=== PATIENT | male | born 1960 | race African-American/Black ===

== ENCOUNTER 2016-10-10 16:39 | Inpatient (IN) | payer MEDICAID ==
[~2016-10-10] VITALS: Ht 177.8 cm; Wt 71.9 kg
[~2016-10-10 16:39] MED LIST: CARDURA2 MG PO; CATAPRES0.2 MG PO; COREG25 MG PO; FUROSEMIDE40 MG PO; HYDRALAZINE HC100 MG PO; HYDROCODON-ACE1 EAC7 PO; ISOSORBIDE MONO60 M1 PO; NIFEDIPINE ER30 MG PO; OMEPRAZOLE20 M1 PO; PRINIVIL20 MG PO
--- NOTE | 2016-10-10 17:27 | NUR ---
1714-REEIVED VIA STRETCHER TO ROOM FROM [facility]. ON ROOM AIR, COMPLAINTS OF ABDOMINAL PAIN. STATES THAT HE HAS BEEN SHORT OF BREATH SINCE TUESDAY. LEFT AVF WITH + BRUIT AND THRILL. LEFT DIALYSIS CATH SEEN WITH DRESSING DATE 10/08/16. RIGHT INFUSAPORT SEEN, WILL ASCESS. RODRI YANCEY APN WITH RENAL CALLED FOR ORDERS. PATIENT STATES THAT HE HAD DIALYSIS ON TUESDAY.
[2016-10-10 17:34] VITALS: BP 159/85; BMI 23.5
--- NOTE | 2016-10-10 17:37 | NUR ---
DR PIERSON NOTIFIED OF ADMIT ELEUTERIO [id number]. PORT ACSESSED BY Delia XAVIER RN.
[2016-10-10] MEDS ORDERED: ELIQUIS2.5 MG PO (17:38)
[2016-10-10] MEDS ORDERED: LIPITOR10 MG PO (17:39)
[2016-10-10] MEDS ORDERED: PRINIVIL20 MG PO (17:41)
[2016-10-10] MEDS ORDERED: LONITEN2.5 MG PO (17:42)
[2016-10-10] MEDS ORDERED: ZOFRAN8 MG PO (17:44)
[2016-10-10] MEDS ORDERED: MIRALAX17 GM PO (17:45)
[2016-10-10 20:00] VITALS: BP 147/93
--- NOTE | 2016-10-10 20:11 | NUR ---
INITIAL ROUNDS COMPETED AT 1910 HRS. PT HAS C/O GENERALIZED CHEST DISCOMFORT. AWAITING DR ANDRADE TO EVAL. ASSESSMENT COMPLETED AT 1950 HRS. SR PER CM HR 97. LAVF WITH GOOD BRUIT AND THRILL. L CHEST HEMOSPLIT INTACT. R CHEST INFUSAPORT SL. LUNGS DIMINISHED IN BASES BILAT. WILL CONTINUE TO MONITOR. SR UP X2, CALL LIGHT WITHIN REACH.
--- NOTE | 2016-10-10 20:29 | NUR ---
DR RAYMOND GORDON.
[2016-10-10 20:54] LABS: BASOPHILS 0 % (0.0-2.0); EOSINOPHILS 0.2 % (0-7); HEMATOCRIT 24.7 % (42.0-54.0); HEMOGLOBIN 7.7 g/dL (13.5-17.5); IMMATURE GRANULOCYTES 0.4 % (0-5); LYMPHOCYTES 10.1 % (15-50); MCH 26.6 pg (26.0-34.0); MCHC 31.2 g/dL (31.0-37.0); MCV 85.5 fL (80.0-100.0); MEAN PLATELET VOLUME 9.5 fL (7.4-10.4); MONOCYTES 9.3 % (2-11); RBC 2.89 10x6/uL (4.20-6.10); RDW 14.9 % (11.5-14.5); WBC 13.3 10x3/uL (4.8-10.8)
[2016-10-10 20:56] LABS: PLATELET COUNT 217 10x3/uL (130-400)
[2016-10-10 21:03] LABS: ANION GAP 15.7 mmol/L (8-16); CALCIUM 7.8 mg/dL (8.5-10.1); CARBON DIOXIDE 26.2 mmol/L (21.0-32.0); CREATININE - SERUM 5.1 mg/dL (0.6-1.3); POTASSIUM - SERUM 3.9 mmol/L (3.5-5.1)
--- NOTE | 2016-10-10 21:24 | NUR ---
DR ANDRADE PAGED AT 2029 HRS. Jero YANCEY APN RETURNED CALL AT 2039 HRS. ASSESSMENT OF PT GIVEN INCLUDING VS, PAIN LEVEL AND CURRENT HOME MEDS. NEW ORDERS RECEIVED AND NOTED. BUPRENEX 0.2MG SIVP GIVEN VIA R INFFUSAPORT AT [address] ANDRADE HERE AT 2104 HRS. WILL CONTINUE TO MONITOE. BED ALARM ON.
[2016-10-11] VITALS: BP 134/83
--- NOTE | 2016-10-11 00:05 | NUR ---
PT RESTING WITH EYES CLOSED. RESP EVEN AND REGULAR. SR UP X2, CALL LIGHT WITHIN REACH.
--- NOTE | 2016-10-11 01:50 | NUR ---
BUPRENEX 0.2MG SIVP GIVEN FOR C/O CP. WILL CONITNUE TO MONITOR.
[2016-10-11 04:00] VITALS: BP 145/85
--- NOTE | 2016-10-11 04:17 | NUR ---
PT RESTING WITH EYES CLOSED. RESP EVEN AND REGULAR. SR UP X2, CALL LIGHT WITHIN REACH.
[2016-10-11 05:52] LABS: APTT 26.3 SECONDS (22.8-39.4); INR 1.5 (0.85-1.17)
--- NOTE | 2016-10-11 06:05 | NUR ---
VSS TRHOUGHOUT NIGHT. PT STATED BUPRENEX CONTROLLED PAIN. NEEDS MET; WILL CONTINUE TO MONITOR,
[2016-10-11 06:23] LABS: ALBUMIN 2.3 g/dL (3.4-5.0); BILIRUBIN - DIRECT 0.44 mg/dL (0.00-0.30); BILIRUBIN - INDIRECT 0.31 mg/dL (0.00-1.00); BILIRUBIN - TOTAL 0.75 mg/dL (0.2-1.3)
[2016-10-11 07:42] VITALS: BP 142/80
--- NOTE | 2016-10-11 08:09 | NUR ---
PATIENT IS NPO X MEDS PENDING U/S OF ABDOMEN. ON HEART MONITOR SHOWING SR, HR 79. RIGHT CHEST IP WITH SALINE LOCK. LEFT CHEST HEMISPLIT SEEN, WITH RESERCE LEFT ARM WITH AVF, + BRUIT AND THRILL. WILL CONTINUE TO MONIOR.
--- NOTE | 2016-10-11 10:08 | NUR ---
1005-TO DIALYSIS VIA WHEELCHAIR. PATIENT HAD 2 LARGE BOWEL MOVEMENTS BEFORE GOING DOWN THERE.
--- NOTE | 2016-10-11 12:02 | NUR ---
STILL IN DIALYSIS.
[2016-10-11 13:17] VITALS: BMI 23.1
--- NOTE | 2016-10-11 14:18 | NUR ---
RETURNS FROM DIALYSIS. DENIES NEEDS.
--- NOTE | 2016-10-11 15:46 | NUR ---
LEFT HEMISPLIT DRESSING CHANGED USING STERILE TECHNIQUE AND DATED.
[2016-10-11 16:01] VITALS: BP 141/76
--- NOTE | 2016-10-11 16:28 | NUR ---
LATE ENTRY- PATIENT HAS BILATERAL SCD'S ON WHEN AM ROUNDING.
--- NOTE | 2016-10-11 17:18 | NUR ---
PATIENT COMPLAINING OF CRAMPING TO HANDS. WAS TOLD FROM DIALYSIS NURSE "I THINK I TOOK OFF 3800 FROM HIM TODAY AND GAVE A LITTLE BACK". CALL PLACED TO RODRI YANCEY APN FOR ANY FURTHER ORDERS.
--- NOTE | 2016-10-11 19:00 | NUR ---
INITIAL ROUNDS MADE. PT SITTING UP IN BED WATCHING TV. DENIES NEED OR C/O AT THIS TIME. WILL CONT TO MONITOR.
[2016-10-11 20:00] VITALS: BP 128/80
--- NOTE | 2016-10-11 23:38 | NUR ---
CATTLE STICKER AT BEDSIDE FOR VS, NEEDS ADDRESSED AT THIS TIME. CALL LIGHT IN REACH. CONT TO MONITOR.
[2016-10-12] VITALS: BP 122/77
[2016-10-12 04:00] VITALS: BP 121/60
[2016-10-12 05:41] LABS: BASOPHILS 0 % (0.0-2.0); EOSINOPHILS 0.6 % (0-7); HEMATOCRIT 23.1 % (42.0-54.0); IMMATURE GRANULOCYTES 0.3 % (0-5); LYMPHOCYTES 13.4 % (15-50); MCH 26.9 pg (26.0-34.0); MEAN PLATELET VOLUME 9.5 fL (7.4-10.4); MONOCYTES 10.8 % (2-11); NEUTROPHILS 74.9 % (40-80); PLATELET COUNT 212 10x3/uL (130-400); RBC 2.75 10x6/uL (4.20-6.10); RDW 15.1 % (11.5-14.5)
[2016-10-12 06:01] LABS: INR 1.57 (0.85-1.17); PROTIME 18.7 SECONDS (11.6-15.0)
[2016-10-12 06:02] LABS: HEMOGLOBIN 7.4 g/dL (13.5-17.5)
[2016-10-12 06:29] LABS: CALCIUM 7.8 mg/dL (8.5-10.1); CARBON DIOXIDE 28.5 mmol/L (21.0-32.0); CREATININE - SERUM 4.7 mg/dL (0.6-1.3); PHOSPHOROUS 6.5 mg/dL (2.5-4.9); POTASSIUM - SERUM 3.5 mmol/L (3.5-5.1)
--- NOTE | 2016-10-12 07:45 | NUR ---
INTRODUCED MYSELF TO PT PRIMARY RN FOR TODAYS SHIFT. PT IS ALERT AND ORIENTED RESTING QUIETLY IN BED. RR NONLABORED ON RA. PT HAS L.CHEST HEMESPLIT WITH BIOPATCH NOTED IN PLACE DRSG CDI AND SWAB CAPS IN USE. R.CHEST INFUSAPORT NOTED WITH DRSG CDI AND SWAB CAPS IN USE, PATENT AND FLUSHES WITH EASE. PT IS WAITING ON BREAKFAST, DENIES ANY CURRENT NEEDS. CL IN REACH. WILL CPOC.
[2016-10-12 07:52] VITALS: BP 143/79
[2016-10-12 09:41] LABS: ALBUMIN 2.3 g/dL (3.4-5.0); ANION GAP 17.4 mmol/L (8-16); BILIRUBIN - TOTAL 0.64 mg/dL (0.2-1.3); CALCIUM 7.8 mg/dL (8.5-10.1); CARBON DIOXIDE 26.1 mmol/L (21.0-32.0); CREATININE - SERUM 4.7 mg/dL (0.6-1.3); POTASSIUM - SERUM 3.5 mmol/L (3.5-5.1); PROTEIN - SERUM 6.9 g/dL (6.4-8.2); T4 THYROXIN - FREE 2.13 ng/dL (0.76-1.46); THYROID STIMULATING HORMONE 1.05 uIU/mL (0.36-3.74)
[2016-10-12 09:46] LABS: HEMOGLOBIN A1C 5.4 % (4.8-6.0)
--- NOTE | 2016-10-12 10:25 | NUR ---
PT DOWN IN DIALYSIS. WILL CONTINUE TO FOLLOW.
[2016-10-12 11:08] LABS: COLD SCREEN @ 4 DEGREES 4+ (NEGATIVE)
--- NOTE | 2016-10-12 11:13 | NUR ---
PICKED UP UNIT OF BLOOD FROM BB AND BROUGHT TO DIALYSIS NURSE JOSE MANUEL TO TRANSFUSE DURING DIALYSIS. PT RESTING DENIES ANY NEEDS. WILL CTM.
[2016-10-12 11:19] LABS: COLD SCREEN ROOM TEMP 1+ (NEGATIVE)
--- NOTE | 2016-10-12 13:52 | NUR ---
PT BACK FROM DIALYSIS.
--- NOTE | 2016-10-12 14:03 | NUR ---
CONSENTS OBTAINED FOR SX WITH TOMORROW. UA COLLECTION CUP PROVIDED WITH INSTRUCTIONS FOR PROPER SPECIMEN COLLECTION GIVEN. PT EATING LUNCH AND VERBALIZES UNDERSTANDING AND WILL GO AFTER LUNCH. CL IN REACH. NO FURTHER NEEDS. WILL CPOC.
--- NOTE | 2016-10-12 14:45 | NUR ---
MID STREAM UA SAMPLE COLLECTED AND SENT TO LAB.
[2016-10-12 15:19] LABS: APPEARANCE HAZY (CLEAR); BILIRUBIN NEGATIVE (NEGATIVE); COLOR YELLOW (YELLOW); GLUCOSE NEGATIVE (NEGATIVE); KETONE NEGATIVE (NEGATIVE); LEUKOCYTE ESTERASE 2+ (NEGATIVE); NITRITE NEGATIVE (NEGATIVE); PROTEIN 2+ mg/dL (NEGATIVE); SPECIFIC GRAVITY 1.015 (1.005-1.020); UROBILINOGEN NORMAL (NORMAL)
[2016-10-12 15:38] LABS: BACTERIA MANY /hpf (NONE SEEN); RED CELLS - URINE 25-50 /hpf (0-5)
[2016-10-12 16:05] VITALS: BP 128/68
--- NOTE | 2016-10-12 18:44 | NUR ---
PT CALLED REQUESTING PRN PAIN MEDICATION AND WAS PROVIDED WITH IT. PT SITTING UP IN BED RESTING DENIES ANY FURTHER NEEDS AT THIS TIME. CL IN REACH, BED IN LOWEST, SIDE RAILS X2. WILL CPOC.
--- NOTE | 2016-10-12 19:00 | NUR ---
INITIAL ROUNDS MADE. PT SITTING UP IN BED WATCHING TV. DENIES NEEDS OR C/O AT THIS TIME. WILL CONT TO MONITOR.
[2016-10-12 20:00] VITALS: BP 146/98
--- NOTE | 2016-10-12 20:55 | NUR ---
PT REPORTS RASH ON LEFT ARM THAT HAS JUST APPEARED. STATES DOES NOT ITCH. WILL MONITOR.
--- NOTE | 2016-10-12 23:43 | NUR ---
STOCKROOM KEEPER AT BEDSIDE FOR VS, NEEDS ADDRESSED. CALL LIGHT IN REACH.CONT TO MONITOR.
[2016-10-13] VITALS (24 sets, daily range): BP systolic 132–162; BP diastolic 49–99; Ht 177.8 cm; Wt 71.9 kg
[2016-10-13 05:05] LABS: BASOPHILS 0 % (0.0-2.0); EOSINOPHILS 0.4 % (0-7); HEMATOCRIT 27.4 % (42.0-54.0); HEMOGLOBIN 8.7 g/dL (13.5-17.5); IMMATURE GRANULOCYTES 0.3 % (0-5); MCH 26.6 pg (26.0-34.0); MCHC 31.8 g/dL (31.0-37.0); MCV 83.8 fL (80.0-100.0); MEAN PLATELET VOLUME 9.8 fL (7.4-10.4); MONOCYTES 7.7 % (2-11); NEUTROPHILS 79.6 % (40-80); PLATELET COUNT 212 10x3/uL (130-400); RBC 3.27 10x6/uL (4.20-6.10); RDW 14.8 % (11.5-14.5); WBC 11.2 10x3/uL (4.8-10.8)
--- NOTE | 2016-10-13 05:25 | NUR ---
PREP COMPLETE ORDERED.
--- NOTE | 2016-10-13 05:30 | NUR ---
PULSES MARKED BY ROBSON. PRE OP MEDS GIVEN. ANTIBIOTIC AND BACTROBAN ON CHART.
[2016-10-13 05:34] LABS: INR 1.35 (0.85-1.17); PROTIME 16.6 SECONDS (11.6-15.0)
[2016-10-13 05:55] LABS: ANION GAP 13.6 mmol/L (8-16); CALCIUM 7.8 mg/dL (8.5-10.1); CARBON DIOXIDE 28.7 mmol/L (21.0-32.0); CREATININE - SERUM 3.9 mg/dL (0.6-1.3); PHOSPHOROUS 5.4 mg/dL (2.5-4.9); POTASSIUM - SERUM 3.3 mmol/L (3.5-5.1)
--- NOTE | 2016-10-13 06:15 | NUR ---
TAKEN TO OR VIA STRETCHER.
--- NOTE | 2016-10-13 08:59 | NUR ---
Patient Name: ODETTE OH Admission Status: Elective Accout number: [id number] Admission Date: 10-10-2016 : 1960 Admission Diagnosis:DYSPNEA, UNSPECIFIED Attending: LINDA Current LOS: 3 Anticipated DC Date: TO BE DETERMINED Planned Disposition: TO BE DETERMINED Primary Insurance: MEDICAID [place] Discharge Planning Comments: CM ATTEMPTED TO MEET WITH PT FOR INITIAL ASSESSMENT OF DISCHARGE NEEDS. PT WAS NOT IN ROOM AT APPROXIMATELY 0830 HOURS. CM SPOKE TO BEDSIDE NURSE KINGSLEY WHO INFORMED CM THAT PT WAS IN SURGERY AND WOULD GO TO ICU POST OP. CMM TO ATTEMPT ASSESSMENT OF PT AT A LATER TIME. Channel Rebuilder: Jeff Christopher
--- NOTE | 2016-10-13 10:00 | NUR ---
RECIEVED PT FROM OR. CONNECTED TO ICU MONITORS. VSS ON CM. CT NOTED TO LEFT SIDE OF CHEST ATTACHED TO 20CM SUCTION. BLOODY DRAINAGE NOTED TO CT COLLECTION CHAMBER. RIGHT CHEST PORT DRESSING C/D/I. LEFT SUCBLAVIAN HEMOSPLIT WITH DRESSING C/D/I. RECIEVING O2 VIA SIMPLE MASK AT 10L UNTIL ABLE TO TRANSFER TO CT. CALL LIGHT IN REACH. BED IN LOW POSITIONN. BED ALARM ON. WILL MONITOR FOR CHANGES THROUGHOUT SHIFT.
--- NOTE | 2016-10-13 12:00 | NUR ---
LYUDMILA YANCEY NP CALLED IN REGARDS TO PT'S PAIN. NEW ORDRES RECIEVED.
--- NOTE | 2016-10-13 12:15 | NUR ---
LYUDMILA, RENAL MILLINERY WORKER AT BEDSIDE. UPDATE PROVIDED.
--- NOTE | 2016-10-13 14:11 | NUR ---
RESTING COMFORTABLY. DENIES NEEDS AT THIS TIME. CALL LIGHT IN REACH. WILL CONT TO ASSESS.
--- NOTE | 2016-10-13 14:20 | NUR ---
PATIENT IS POST OP PERICARDAL WINDOW. HE IS IN PAIN AND UNABLE TO BE INTERVIEWED AT THIS TIME. I HAVE NOT SEEN ANY FAMILY HERE TO INTERVIEW. CM TO FOLLOW.
--- NOTE | 2016-10-13 15:15 | NUR ---
REPOSITIONED TO RIGHT SIDE. PILLOWS ADJUSTED TO COMOFORT. C/O PAIN TO ABD. WILL ADMINISTER PAIN MEDICATION WHEN DUE.
--- NOTE | 2016-10-13 15:54 | NUR ---
PATIENT PATHWAYS: [facility] MWF @ 9:45am. Med recs forwarded. BMM Dialysis Coordinator.
--- NOTE | 2016-10-13 15:58 | NUR ---
TEGAN CALLED IN REGARDS TO DOSAGE FOR LOVENOX SHOT. ORDER PLACED.
--- NOTE | 2016-10-13 19:50 | NUR ---
REPORT RECIEVED. ASSESSMENT COMPLETE PER FLOW SHEET. VSS. O2 VIA OXYMIZER 7L O2 SAT 96% RR 16 RUL RML ZAHRAA CLEAR BILAT LOWER LOBES DEMINISHED. HEART S1S2 HR [address] PATENT TO 20CM SUCTION NO AIR LEAK NOTED. SEROUS DRAINAGE NOTED. VSS. DENIES NEEDS. WILL CONTINUE TO MONITOR.
--- NOTE | 2016-10-13 22:59 | NUR ---
REASSESSMENT COMPLETE PER FLOW SHEET. VSS. NO NEW CHANGES. WILL CONTINUE TO MONITOR
[2016-10-14] VITALS (25 sets, daily range): BP systolic 136–169; BP diastolic 82–109
--- NOTE | 2016-10-14 01:18 | NUR ---
PT SLEEPING COMFORTABLY. VSS. NO NEW CHANGES
--- NOTE | 2016-10-14 03:43 | NUR ---
REASSESSMENT COMPLETE PER FLOW SHEET. VSS. NO NEW CHANGES. WILL CONTINUE TO MONITOR.
[2016-10-14 06:20] LABS: BASOPHILS 0.1 % (0.0-2.0); EOSINOPHILS 0.2 % (0-7); HEMATOCRIT 31.4 % (42.0-54.0); HEMOGLOBIN 9.8 g/dL (13.5-17.5); IMMATURE GRANULOCYTES 0.4 % (0-5); LYMPHOCYTES 9.6 % (15-50); MCH 26.7 pg (26.0-34.0); MCHC 31.2 g/dL (31.0-37.0); MCV 85.6 fL (80.0-100.0); MEAN PLATELET VOLUME 9.9 fL (7.4-10.4); MONOCYTES 7.8 % (2-11); NEUTROPHILS 81.9 % (40-80); RBC 3.67 10x6/uL (4.20-6.10); RDW 15.1 % (11.5-14.5); WBC 12.7 10x3/uL (4.8-10.8)
[2016-10-14 06:27] LABS: PLATELET COUNT 286 10x3/uL (130-400)
[2016-10-14 06:52] LABS: PHOSPHOROUS 9.2 mg/dL (2.5-4.9)
[2016-10-14 06:53] LABS: ANION GAP 17.2 mmol/L (8-16); CREATININE - SERUM 5.2 mg/dL (0.6-1.3); POTASSIUM - SERUM 4.2 mmol/L (3.5-5.1)
--- NOTE | 2016-10-14 07:15 | NUR ---
REPORT RECEIVED FROM STITCHING MACHINE SETTER NURSE. PT RESTING IN BED QUIETLY. ASSESSMENT COMPLETE PER FLOWSHEET.
--- NOTE | 2016-10-14 07:49 | NUR ---
No. Question Answer Score * Is the patient Alert and Oriented? Yes 0 * How many steps to enter\exit or inside your home? 1-2 0 * PCP DR. FRANKLIN IN [place] 0 * Pharmacy [facility] IN [place] 0 * Preadmission Environment Home with Family 0 * ADLs Independent 0 * Equipment Cane 0 * List name and contact numbers for known caregivers / representatives who currently or will assist patient after discharge: BROTHER: PAUL [phone] [place] [phone] 0 * Community resources currently utilized None 0 * Additional services required to return to the preadmission environment? No 0 * Can the patient safely return to the preadmission environment? Yes 0 * Has this patient been hospitalized within the prior 30 days at any hospital? No PATIENT STATES HE LIVES AT HOME WITH HIS BROTHERS AND SISTER. HE STATES ONE OF THEM WILL BE AVAILABLE TO DRIVE HIM HOME AT DISCHARGE. PATIENT STATES HIS PCP IS DR. FRANKLIN IN [place]. HE GETS HIS MEDICATION FROM [facility] IN [place], [place]. PATIENT STATES HE USES A CANE AND DENIES ANY OTHER EQUIPMENT. PATIENT STATES HE HAD HOME HEALTH FROM [facility] ABOUT 4 MONTHS AGO. THERE ARE 1-2 STEPS TO ENTER HIS HOME. PATIENT GETS DIALYSIS ON M/W/FR AT THE [place] [facility]. HE STATES HIS BROTHER PAUL DRIVES HIM TO AND FROM DIALYSIS. NO DISCHARGE NEEDS IDENTIFED AT THIS TIME.
--- NOTE | 2016-10-14 08:30 | NUR ---
DR. DONG AT BEDSIDE. UPDATE PROVIDED.
--- NOTE | 2016-10-14 10:30 | NUR ---
DR YEVGENIY LOERA'S P.A. AT BEDSIDE TO PULL CT. PT TOLERATED WELL. WILL MONITOR FOR CHANGES.
--- NOTE | 2016-10-14 10:39 | NUR ---
Nutrition follow-up: Pt NPO s/p surgery PO intake of renal diet before surgery was 100% of meals Labs: PO4: 9.2 Wt: 165#, stable RDN will monitor patients diet advancement and tolernace.
--- NOTE | 2016-10-14 11:15 | NUR ---
PT RESTING IN BED WITH EYES CLOSED. RESP EVEN AND UNLABORED. WILL CONT TO ASSESS. CALL LIGHT IN REACH.
--- NOTE | 2016-10-14 13:15 | NUR ---
PRN NORCO ADMINISTERED FOR ABD PAIN. WILL REASSESS.
[2016-10-14 16:15] LABS: AFB SPECIMEN PROCESSING Concentration (())
--- NOTE | 2016-10-14 17:14 | NUR ---
DIALYSIS NURSE AT BEDSIDE.
[2016-10-15] VITALS (12 sets, daily range): BP systolic 127–178; BP diastolic 78–95
--- NOTE | 2016-10-15 03:15 | NUR ---
REASSESSMENT COMPLETED. SEE FLOWSHEET FOR ALL FINDINGS. WEANING O2. INCENTIVE AND COUGH/DB ENCOURAGED. VSS. HOB UP. C/L IN REACH. CONT CURRENT POC.
--- NOTE | 2016-10-15 04:30 | NUR ---
UP IN CHAIR AT BEDSIDE. VSS. SPO2 94% ON O2 AT 4 LPM NC. PRN PAIN MEDS GIVEN FOR INCREASED PAIN LEVEL. C./L IN REACH. CONT CURRENT POC.
[2016-10-15 05:16] LABS: BASOPHILS 0 % (0.0-2.0); EOSINOPHILS 0.4 % (0-7); HEMATOCRIT 32.6 % (42.0-54.0); HEMOGLOBIN 10.3 g/dL (13.5-17.5); IMMATURE GRANULOCYTES 0.3 % (0-5); LYMPHOCYTES 10.5 % (15-50); MCH 26.9 pg (26.0-34.0); MCHC 31.6 g/dL (31.0-37.0); MCV 85.1 fL (80.0-100.0); MEAN PLATELET VOLUME 9.8 fL (7.4-10.4); MONOCYTES 9.4 % (2-11); NEUTROPHILS 79.4 % (40-80); PLATELET COUNT 244 10x3/uL (130-400); RBC 3.83 10x6/uL (4.20-6.10); RDW 15.2 % (11.5-14.5); WBC 11.3 10x3/uL (4.8-10.8)
[2016-10-15 05:39] LABS: ANION GAP 16.5 mmol/L (8-16); C-REACTIVE PROTEIN 12.9 mg/dL (0.0-0.9); CALCIUM 7.9 mg/dL (8.5-10.1); CARBON DIOXIDE 27.2 mmol/L (21.0-32.0); CREATININE - SERUM 4.7 mg/dL (0.6-1.3); POTASSIUM - SERUM 3.7 mmol/L (3.5-5.1)
--- NOTE | 2016-10-15 07:00 | NUR ---
Patient awake alert and oriented. up in chair. Denies needs. See shift assessment flowsheet.
--- NOTE | 2016-10-15 08:30 | NUR ---
Patient requesting to get back to bed, informed him that he has to stay up in the chair. Call light within reach.
--- NOTE | 2016-10-15 09:30 | NUR ---
Patient denying PT. Informed him he has to walk. Dewey with PT will come back shortly.
[2016-10-15 11:18] LABS: FUNGUS STAIN Final report (())
--- NOTE | 2016-10-15 11:20 | NUR ---
Patient ambulated 200 feet with Dewey with Pt.
--- NOTE | 2016-10-15 11:26 | NUR ---
in to see patient. No new orders at this time.
--- NOTE | 2016-10-15 13:37 | NUR ---
Patient ambulated with Dewey, back to bed for a nap.
--- NOTE | 2016-10-15 13:37 | NUR ---
Eliquis dosed by Renal. Will give first dose now.
--- NOTE | 2016-10-15 15:34 | NUR ---
Report called to [facility]. Pt to go to room 3844
--- NOTE | 2016-10-15 15:55 | NUR ---
Patient actively vomitting, zofran administered.
--- NOTE | 2016-10-15 17:07 | NUR ---
BARRETT Gonzalez returned call. Order for phenegran received.
--- NOTE | 2016-10-15 17:35 | NUR ---
RECEIVED PT TO ROOM 2122 FROM ICU C/O NAUSEA ALREADY MEDICATED WITH PHENERGAN IN ICU WILL CONT TO MONITOR
--- NOTE | 2016-10-15 20:17 | NUR ---
RESTING IN BED. SR PER TELEMETRY. NONLABORED RESPIRATIONS ON ROOM AIR. LEFT HEMOSPLIT CAPPED AND CLAMPED. RIGHT PORT ACCESSED AND SALINE LOCKED. RESERVE LEFT ARM FOR MATURING AVF. REQUESTED TO NOT BE GIVEN NORCO, THAT ONLY IV BUPRENEX WORKS ON HIM TO MAKE HIM FEEL BETTER. SEE ASSESSMENT. CPOC. CALL LIGHT IN REACH.
[2016-10-16 00:11] VITALS: BP 152/82
--- NOTE | 2016-10-16 00:40 | NUR ---
PT AWAKENED FOR VITAL SIGNS , REQUESTED PAIN MEDS. ADMINISTERED IV BUPRENEX AND IV ZOFRAN. WILL MONITOR. CPOC. CALL LIGHT IN REACH.
[2016-10-16 04:49] VITALS: BP 139/88
--- NOTE | 2016-10-16 05:28 | NUR ---
AM PORTABLE CHEST XRAY PERFORMED. AM LAB COLLECTED FROM RIGHT PORT. PT RESTING WITH A LITTLE BIT OF NAUSEA AFTER BEING MOVED AROUND FROM THE XRAY. WILL MONITOR.
[2016-10-16 07:05] LABS: ANION GAP 13.6 mmol/L (8-16); CALCIUM 7.8 mg/dL (8.5-10.1); CARBON DIOXIDE 30.1 mmol/L (21.0-32.0); POTASSIUM - SERUM 3.7 mmol/L (3.5-5.1)
[2016-10-16 07:12] LABS: BASOPHILS 0.1 % (0.0-2.0); EOSINOPHILS 0.6 % (0-7); HEMATOCRIT 28.1 % (42.0-54.0); HEMOGLOBIN 8.9 g/dL (13.5-17.5); IMMATURE GRANULOCYTES 0.3 % (0-5); LYMPHOCYTES 13.8 % (15-50); MCH 27.4 pg (26.0-34.0); MCHC 31.7 g/dL (31.0-37.0); MCV 86.5 fL (80.0-100.0); MONOCYTES 11.2 % (2-11); PLATELET COUNT 204 10x3/uL (130-400); RBC 3.25 10x6/uL (4.20-6.10); RDW 15.2 % (11.5-14.5); WBC 10.1 10x3/uL (4.8-10.8)
--- NOTE | 2016-10-16 07:40 | NUR ---
ASSESSMENT DONE. PT LAYING IN BED WITH HOB ELEVATED. SLEEPING. EYES CLOSED, RESP EVEN AND UNLABORED. EASILY AWAKEN. HEMESPLIT TO LEFT CHEST WITH DRESSING CLEAN DRY AND INTACT, BUT NOT DATED. RT CHEST IP, WITH DRESSING IN PLACE, AND SWAB CAPS ON. DRESSING TO UPPER ABD/CHEST AREA CLEAN, DRY AND INTACT. PT C/O NAUSEA AND PAIN AT DRESSING SITE. MEDS GIVEN. DENIES OTHER NEEDS AT THIS TIME. CALL LIGHT WITH IN REACH. WILL CONT. TO MONITOR.
[2016-10-16 08:01] VITALS: BP 140/87
--- NOTE | 2016-10-16 09:35 | NUR ---
PT AMB IN BENOIT WITH PT USING RESENDEZ. TOLERATING WELL.
--- NOTE | 2016-10-16 09:44 | NUR ---
UP AMBULATING HALLWAY WITH PT ASSIST. WILL CONT. PLAN OF CARE.
--- NOTE | 2016-10-16 10:49 | OP ---
PATIENT NAME: ODETTE OH MEDICAL RECORD: [id number] :[birth year] LOCATION:[facility] D.2123 ADMISSION DATE:10/10/16 SURGEON: VIOLETTE MURRAY MD DATE OF OPERATION: 10/13/2016 SURGEON: Violette Murray MD ANESTHESIA: General, Dr. Dash. OPERATION PERFORMED: Subxiphoid pericardiectomy. PREOPERATIVE DIAGNOSIS: Symptomatic pericardial effusion. POSTOPERATIVE DIAGNOSIS: Pericarditis with 500 cc pericardial effusion. ESTIMATED BLOOD LOSS: Less than 20 cc. DESCRIPTION OF PROCEDURE: After informed consent, adequate preoperative medication evaluation, the patient was brought to the operating room, placed on the table in the supine position. After induction of general endotracheal anesthesia and application of appropriate monitoring devices, the chest and abdomen were prepped and draped in a sterile field, utilizing Betadine scrub, alcohol, and Betadine solution, a Betadine-impregnated drape was also used, a 4-cm subxiphoid incision was made and dissection carried down the fascia. Hemostasis was maintained with electrocautery. The linea alba was divided. The retrosternal and free peritoneal tissues were dissected exposing the pericardium. The pericardium was pulled inferiorly with a rake. The pericardium was entered with a 15 blade and the fluid sent for aerobe, anaerobe, TB, fungus, and cytology. The pericardiectomy was performed of the anterior pericardium and sent to pathology. Hemostasis was assured. A #40 right angle chest tube was brought in through the epigastric area and placed in the pericardium. This was secured and connected to underwater seal and suction. Assurance was made again for hemostasis. There was no bleeding. The instrument counts and sponge count were correct times 2. Wounds closed in layers utilizing 0 Ethibond sutures on the linea alba, 2-0 Vicryl on subcutaneous tissue and skin approximated with 3-0 subcuticular Vicryl. Sterile dressings were applied. The patient tolerated the procedure well and was transferred to the ICU in satisfactory condition. TRANSINT:[id number] Voice Confirmation ID: [id number] DOCUMENT ID: [id number] VIOLETTE MURRAY MD at 1049 CC: [id number] DICTATION DATE: 10/13/16 0905 MATERIAL HANDLING SUPERVISOR: 10/13/16 1349 ADM IN [place] [address] [place] [address]
[2016-10-16 12:02] VITALS: BP 140/87
--- NOTE | 2016-10-16 12:34 | NUR ---
PT RECEIVING DIALYSIS IN ROOM. DIALYSIS NURSE AT BEDSIDE.
--- NOTE | 2016-10-16 15:15 | NUR ---
HEMODIALYSIS COMPLETED, NET FLUID REMOVAL OF 1500 ML, TOLERATED WELL. BLOOD RETURNED, LINES FLUSHED, HEPARIN DWELLING.
--- NOTE | 2016-10-16 15:47 | NUR ---
NURSE IN ROOM ATTEMPTED TO CHANGE PT'S DRESSING TO LEFT CHEST AREA. PT DECLINES DRESSING CHANGE. STATES IT WAS "JUST CHANGED YESTERDAY AND THERE IS NOTHING WRONG WITH IT, SO IT DON'T NEED TO BE CHANGED." NURSE ASKED PT IF THE ICU NURSES WERE CHANGING DRESSING DAILY. PT STATES NO, JUST WHEN IT NEEDS IT." NO SPECIFIC ORDERS NOTED IN CHART FOR DRESSING CHANGE. DRESSSING IS CLEAN DRY AND INTACT. NO S/S OF INFECTION NOTED. WILL CONT. TO MONITOR.
[2016-10-16 15:51] VITALS: BP 148/86
--- NOTE | 2016-10-16 18:21 | NUR ---
PT SLEEPING. HOB ELEVATED. EYES CLOSED, RESP EVEN AND UNLABORED. NO DISTRESS NOTED. CALL LIGHT WITH IN REACH.
[2016-10-16 20:30] VITALS: BP 151/90
[2016-10-17 00:30] VITALS: BP 143/90
[2016-10-17 04:30] VITALS: BP 183/92
[2016-10-17 07:26] LABS: HEMATOCRIT 29.1 % (42.0-54.0); HEMOGLOBIN 9.1 g/dL (13.5-17.5); MCHC 31.3 g/dL (31.0-37.0); MCV 86.4 fL (80.0-100.0); MEAN PLATELET VOLUME 10.3 fL (7.4-10.4); RBC 3.37 10x6/uL (4.20-6.10); RDW 15.1 % (11.5-14.5); WBC 11.1 10x3/uL (4.8-10.8)
--- NOTE | 2016-10-17 07:30 | NUR ---
WALKING ROUNDS,WITHOUT DISTRESS.CALL LIGHT IN REACH
[2016-10-17 07:36] LABS: ANION GAP 11.2 mmol/L (8-16); CALCIUM 7.8 mg/dL (8.5-10.1); CARBON DIOXIDE 31.3 mmol/L (21.0-32.0); CREATININE - SERUM 5.1 mg/dL (0.6-1.3); POTASSIUM - SERUM 3.5 mmol/L (3.5-5.1)
[2016-10-17 08:14] VITALS: BP 133/81
--- NOTE | 2016-10-17 08:58 | NUR ---
PAINMEDS PER MAR
--- NOTE | 2016-10-17 09:00 | NUR ---
ASSESSMENT PER FLOW SHWWT.PT WITHOUT DISTRESS.CALL LIGHT IN REACH
[2016-10-17 11:44] VITALS: BP 141/81
--- NOTE | 2016-10-17 14:45 | NUR ---
PAIN MEDS ORDERED PER OCT.
[2016-10-17 15:27] VITALS: BP 136/75
--- NOTE | 2016-10-17 19:25 | NUR ---
INITIAL ROUNDS MADE. PT SITTING UP IN BED WATCHING TV. NO NEEDS OR C/O VOICED AT THIS TIME. IV PAIN MED GIVEN BY A-P NURSE. CALL LIGHT INREACH. WILL CONT TO MONITOR.
--- NOTE | 2016-10-17 19:28 | NUR ---
REMAINS WITHOUT NEEDS,WITHOUT CHANGE.CONT PLAN OF CARE
[2016-10-17 20:30] VITALS: BP 164/88
[2016-10-17 21:33] LABS: APPEARANCE HAZY (CLEAR); BILIRUBIN NEGATIVE (NEGATIVE); COLOR DK YELLOW (YELLOW); GLUCOSE NEGATIVE (NEGATIVE); KETONE NEGATIVE (NEGATIVE); LEUKOCYTE ESTERASE TRACE (NEGATIVE); NITRITE NEGATIVE (NEGATIVE); PROTEIN 3+ mg/dL (NEGATIVE); SPECIFIC GRAVITY 1.015 (1.005-1.020); UROBILINOGEN NORMAL (NORMAL)
[2016-10-17 21:34] LABS: BACTERIA MANY /hpf (NONE SEEN); EPITHELIAL CELLS 0-5 /hpf (0-5); RED CELLS - URINE >50 /hpf (0-5)
[2016-10-18 00:30] VITALS: BP 194/94
[2016-10-18 04:45] VITALS: BP 171/94
--- NOTE | 2016-10-18 05:32 | NUR ---
AM LAB DRAWN FROM INFUSAPORT PER PROTOCOL AND TAKEN TO LAB.
[2016-10-18 05:45] LABS: HEMATOCRIT 27.3 % (42.0-54.0); HEMOGLOBIN 8.5 g/dL (13.5-17.5); MCH 26.6 pg (26.0-34.0); MCHC 31.1 g/dL (31.0-37.0); MCV 85.6 fL (80.0-100.0); MEAN PLATELET VOLUME 9.9 fL (7.4-10.4); RBC 3.19 10x6/uL (4.20-6.10); RDW 15.3 % (11.5-14.5); WBC 9.8 10x3/uL (4.8-10.8)
[2016-10-18 06:03] LABS: ANION GAP 13.2 mmol/L (8-16); CALCIUM 7.7 mg/dL (8.5-10.1); CARBON DIOXIDE 28.6 mmol/L (21.0-32.0); CREATININE - SERUM 5.8 mg/dL (0.6-1.3); POTASSIUM - SERUM 3.8 mmol/L (3.5-5.1)
--- NOTE | 2016-10-18 07:38 | NUR ---
ASSESSMENT COMPLETED. TELEMERTY SHOWS SR. PT HAS A RIGHT IP, LEFT CHEST HEMASPLIT AND A LEFT ARM AVF. 2 DRSG TO CHEST CLEAN AND DRY. DENIES ANY NEEDS. SR UP WITH CALL IN REACH. WILL MONITOR
[2016-10-18 08:13] VITALS: BP 144/85
--- NOTE | 2016-10-18 10:10 | NUR ---
Patient Name: ODETTE OH Encounter No: [id number] : 1960 Primary Insurance: MEDICAID [facility] DC Date: 10-19-2016 Planned Disposition: Home with Home Health External Planned Provider: [facility] DCP follow-up note: CM RECEIVED HOME HEALTH AND DISCHARGE PLANNING ORDER. CM ATTEMPTED TO MEET WITH PT IN ROOM TO DISCUSS DISCHARGE PLAN AND NEEDS. PT WAS NOT IN ROOM AT APPROXIMATELY 0940 HOURS. CM WILL FOLLOW UP WITH PT AFTER PT COMPLETES DIALYSIS AND RETURNS TO ROOM. Jeff Christopher, CASE MANAGEMENT
[2016-10-18 10:12] LABS: ANA REFLEX - DIRECT Negative (Negative)
--- NOTE | 2016-10-18 12:02 | NUR ---
STILL IN DIAYLSIS
--- NOTE | 2016-10-18 16:09 | NUR ---
Patient Name: ODETTE OH Encounter No: [id number] : 1960 Primary Insurance: MEDICAID [place] Anticipated DC Date: 10-19-2016 Planned Disposition: Home with Home Health External Planned Provider: [facility] DCP follow-up note: CM RECEIVED ORDER, MET WITH PT IN ROOM TO DISCUSS DISCHARGE PLANNING AND HOME HEALTH. PT REPORTS HE WILL BE DISCHARGING HOME WITH HIS TWO BROTHERS AND SISTER, ALL WHO ARE ADULTS. PT WILL WORK ON FAMILY TO PICK HIM UP THEY WILL NEED TO BE HOME TO GET IN IN THE HOUSE AND DENIES NEED OF CM TO ASSIST IN CALLING MEDICAID TRANSPORT TO GET PT HOME TOMORROW. PT WILL ACCEPT HOME HEALTH AND CHOSE [facility], CHOICE SIGNED. CM CALLED [facility], , PROVIDED REFERRAL TO SHANE WHO WILL CONTACT [facility] TO VERIFY ORDERS AND ARRANGE HOME HEALTH FOLLOW UP. LENO ENSURED THAT SHANE WAS AWARE OF PT'S DIALYSIS SCHEDULE TO ASSIST WITH HOME HEALTH ARRANGEMENTS. CM FAXED REFERRAL TO [facility] AT [phone]. FOR DISCHARGE, NOTIFY [facility] AT [phone], FAX DISCHARGE INFORMATION AND INSTRUCTIONS TO [facility] AT [phone]. PT TO ARRANGE TRANSPORTATION HOME WITH HIS FAMILY. Jeff Christopher, CASE MANAGEMENT
[2016-10-18 18:12] VITALS: BP 150/83
--- NOTE | 2016-10-18 18:26 | NUR ---
UO ON SIDE OF BED. DENIES ANY NEEDS. TELEMERTY SHOW S SR. WILL MONITOR
[2016-10-18 20:00] VITALS: BP 143/70
--- NOTE | 2016-10-18 22:06 | NUR ---
PT IS VERY UPSET AND IN A LOT OF PAIN. REFUSED HIS SCHEDULED BLOOD THINNERS AND STATED "WHAT DOES IT MATTER IF I THROW A CLOT YOU DONT CARE IF IM IN PAIN" I TOLD PT WE DO CARE AND TRIED TO CALM HIM DOWN. PAGED ON-CALL RENAL AND WILL CONTINUE TO MONITER.
[2016-10-19] VITALS: BP 139/81
--- NOTE | 2016-10-19 00:53 | NUR ---
PT STILL C/O NON RESOLVED PAIN. PAGED NURSING HOME SOCIAL WORKER RENAL AGAIN FOR PAIN MEDICATION ORDER. NO FURTHER NEEDS AT THIS TIME. WILL CTM.
--- NOTE | 2016-10-19 04:30 | NUR ---
PT CALLED REQUESTING JACK FENG AND WAS PROVIDED WITH IT. ON-CALL RENAL NEVER RETURNED PAGE FOR STRONGER PAIN MED. AM BLOOD DRAW DONE VIA R.CHEST INFUSAPORT. FLUSHED AND PLACED SWAB CAP AFTER DRAW. SENT BLOOD TO LAB. PT RESTING AND DENIES ANY FURTHER NEEDS AT THIS TIME. CL IN REACH. WILL CTM.
[2016-10-19 05:13] LABS: BASOPHILS 0 % (0.0-2.0); EOSINOPHILS 0.7 % (0-7); HEMATOCRIT 27.6 % (42.0-54.0); HEMOGLOBIN 8.7 g/dL (13.5-17.5); IMMATURE GRANULOCYTES 0.5 % (0-5); LYMPHOCYTES 15.4 % (15-50); MCHC 31.5 g/dL (31.0-37.0); MCV 85.7 fL (80.0-100.0); MEAN PLATELET VOLUME 10.1 fL (7.4-10.4); MONOCYTES 11.9 % (2-11); NEUTROPHILS 71.5 % (40-80); PLATELET COUNT 192 10x3/uL (130-400); RBC 3.22 10x6/uL (4.20-6.10); RDW 15.2 % (11.5-14.5); WBC 8.7 10x3/uL (4.8-10.8)
[2016-10-19 05:41] LABS: ANION GAP 9.9 mmol/L (8-16); CALCIUM 8.3 mg/dL (8.5-10.1); CARBON DIOXIDE 31.9 mmol/L (21.0-32.0); CREATININE - SERUM 4.5 mg/dL (0.6-1.3); PHOSPHOROUS 4.3 mg/dL (2.5-4.9); POTASSIUM - SERUM 3.8 mmol/L (3.5-5.1)
--- NOTE | 2016-10-19 07:35 | NUR ---
ASSESSMENT COMPLETED. TELEMERTY SHOWS SR. RIGHT IP PATENT. LAVF NOTED. LEFT HEMOSPLIT NOTED. NO NEEDS VOICED. WILL MONITOR
[2016-10-19 08:27] VITALS: BP 146/86
[2016-10-19 10:20] LABS: HEPATITIS C ANTIBODY >11.0 (0.0-0.9)
[2016-10-19 12:02] VITALS: BP 139/75
[2016-10-19] MEDS ORDERED: HYDRALAZINE HCL50 MG PO (12:11)
[2016-10-19] MEDS ORDERED: HYDROCODON-ACE1 EAC7 PO (12:15)
[2016-10-19] MEDS ORDERED: PEPCID20 MG PO (12:16)
[2016-10-19] MEDS ORDERED: RENAGEL800 MG PO (12:19)
--- NOTE | 2016-10-19 13:52 | NUR ---
PT DISCHARGED. INSTRUCTIONS GIVEN, AWAITING FAMILY TO TAKE HIM HOME
--- NOTE | 2016-10-19 14:05 | NUR ---
Patient Name: ODETTE OH Encounter No: [id number] : 1960 Primary Insurance: MEDICAID [facility] DC Date: 10-19-2016 Planned Disposition: Home with Home Health External Planned Provider: [facility] DCP follow-up note: CM RECEIVED DISCHARGE ORDER, CALLED TO NOTIFY SHANE OF [facility] AT [phone], FAXED DISCHARGE INFORMATION AND INSTRUCTIONS TO [facility] AT [phone]. PT TO ARRANGE TRANSPORTATION HOME WITH HIS FAMILY. Jeff Christopher, CASE MANAGEMENT
--- NOTE | 2016-10-19 15:36 | NUR ---
FAMILY HERE TO CONSULTANT EDUCATION PT. TO PRIVATE CAR PER WC
--- NOTE | 2016-10-20 05:59 | DS ---
PATIENT:ODETTE OH :[birth year] MEDICAL RECORD: [id number] DISCHARGE SUMMARY ADMISSION DATE: 10/10/16 DISCHARGE DATE: 10/19/16 HISTORY OF PRESENT ILLNESS: Mr. Oh is a 56-year-old black male with end-stage renal disease with very poor compliance, who recently missed dialysis for 3 weeks. He appears in the [facility] with chest pain and found to have pericardial effusion on CT of his chest, and transferred here. HOSPITAL COURSE: The patient also has been on long-term minoxidil, which was discontinued. Echocardiogram revealed a moderate size pericardial effusion with no evidence of acute tamponade. His workup for other causes of his effusion other than his dialysis, noncompliance in minoxidil was negative, specifically with a negative autoimmune screen TB workup as well as all cultures and fungal stains that were negative. He was taken to surgery by Dr. Murray, we had a pericardial window done, in this we had an uneventful postoperative recovery and will be discharged back to [facility]. DISCHARGE DIAGNOSES: 1. Pericardial effusion, requiring drainage, probably on the basis of noncompliant dialysis along with minoxidil. 2. End-stage renal disease, chronic dialysis. 3. Poor compliance. 4. Hypertension. 5. Chronic anemia. 6. Poor social situation. PLAN: The patient will be discharged today. He will be in [facility] tomorrow. I will see him next week on rounds. He will resume his renal diet. DISCHARGE MEDICATIONS: Will be Pepcid 10 mg b.i.d., hydralazine 50 b.i.d., MiraLax p.r.n., Eliquis 2.5 b.i.d. He will be on Renagel 2.5 grams t.i.d. He will be on nifedipine 30 b.i.d., lisinopril 20 b.i.d. and hydrocodone and APAP 5/325, we will give him 20 of those with no refills. TRANSINT:[id number] Voice Confirmation ID: [id number] DOCUMENT ID: [id number] CC: [facility] JAYDE METZGER MD at 0559 CC: [id number] DICTATION DATE: 10/19/16 0755 MANAGER BEAUTY: 10/19/16 0857 DIS IN 10/19/16 [facility] [address] [place] [address]
--- NOTE | 2016-11-02 08:17 | EC ---
PATIENT:ODETTE OH DATE OF SERVICE: 10/10/16 SEX: M MEDICAL RECORD: [id number] DATE OF : [birth year] LOCATION:D. D.212 AGE OF PATIENT: 56 ADMISSION DATE: 10/10/16 REFERRING PHYSICIAN: INTERPRETING PHYSICIAN: LATANYA MARTINEZ M.D. ECHOCARDIOGRAM REPORT ECHO CHARGES 4 ECHO COMPLETE CLINICAL DIAGNOSIS: PERICARDIAL EFFUSION ECHOCARDIOGRAPHIC MEASUREMENTS (adult normal given) AC root (d.<3.7cm) 3.2 LV Septum d (<1.2 cm> 2.8 Valve Excursion 2.1 LV Septum (systole) 2.9 Left Atria (s.<4.0cm> 5.1 LVPW d(<1.2cm) 2.3 RV (d.<2.3cm) 3.1 LVPW (sytole) 2.8 LV diastole(<5.6CM) 4.3 MV E-F(>70mm/sec) LV systole 2.2 LVOT Diameter 2.1 MV exc.(>10mm) Est.ejection fraction (50-75%) Pericardial Effusion Y DOPPLER: LVIT A 100 E 112 LA RVSP 56.0 LVOT 134 AOP1/2T Asc. Ao 223 RVOT 65.0 RA PA 94.0 AV Gradient Peak 20.0 AV Mean 9.8 AV Area 1.3 MV Gradient Peak 5.5 MV Mean 2.3 MV Area COMMENTS: Carcass Splitter: Gopal MILLEROE Systems Technologist:Ese Martinez TAPE# PACS DATE OF SERVICE: 10/11/2016 REFERRING PHYSICIAN: Paresh Ledezma MD INDICATION: Pericardial effusion. DESCRIPTION: Left ventricle demonstrates left ventricular hypertrophy. No wall motion abnormalities are noted. Estimated ejection fraction is 55%. Mitral valve is structurally normal. There is trivial regurgitation seen. Left atrium is moderately dilated. The aortic valve is trileaflet. There is no stenosis or ECHOCARDIOGRAM REPORT [id number] ODETTE OH regurgitation seen. Right ventricle is mildly dilated. Tricuspid valve is normal. There is mild regurgitation noted. Right ventricular systolic pressure is elevated at 56 mmHg. There is a circumferential pericardial effusion noted. It is moderate in size. I do not see any evidence of any right atrium, right ventricular collapse. IMPRESSION: 1. Left ventricular hypertrophy with preserved ejection fraction of 55%. 2. Mild tricuspid regurgitation. 3. Moderate size pericardial effusion, which is circumferential. There does not appear to be any signs of tamponade. TRANSINT:[id number] Voice Confirmation ID: [id number] DOCUMENT ID: [id number] LATANYA MARTINEZ M.D. at 0817 CC: [id number] DICTATION DATE: 10/12/16 0756 MONITORING TECH: 10/12/16 2248 DIS IN 10/19/16 [place] [id number] [place] [id number]
[2016-11-10 08:23] LABS: FUNGUS MYCOLOGY CULTURE Final report (())
[2016-12-05 14:09] LABS: ACID FAST CULTURE Negative (()); ACID FAST SMEAR Negative (())
== END 2016-10-19 15:39 | disposition home health service (06) | DRG 270 ==
LOC: D.M2 16:39 → D.ICU 17:21 → D.M2 17:21 → D.ICU 10-13 08:32 → D.M2 10-15 17:33
PROVIDERS: Internal Medicine Cardiovascular Disease; Internal Medicine Nephrology; Internal Medicine Pulmonary Disease; ADMIT Internal Medicine Nephrology
PROC: 5A1D60Z (ICD-10-PCS; 2016-10-11)
PROC: 02TN0ZZ Resection of Pericardium, Open Approach (ICD-10-PCS; principal; 2016-10-13 07:30)
DX: I30.9 Acute pericarditis, unspecified (principal); N18.6 End stage renal disease; I13.2 Hypertensive heart and chronic kidney disease with heart failure and with stage 5 chronic kidney disease, or end stage renal disease; I50.30 Unspecified diastolic (congestive) heart failure; J98.11 Atelectasis; N39.0 Urinary tract infection, site not specified; Z99.2 Dependence on renal dialysis; Z87.891 Personal history of nicotine dependence; R09.02 Hypoxemia; J44.9 Chronic obstructive pulmonary disease, unspecified; I07.1 Rheumatic tricuspid insufficiency; B19.20 Unspecified viral hepatitis C without hepatic coma; D63.8 Anemia in other chronic diseases classified elsewhere; Z91.19 Patient's noncompliance with other medical treatment and regimen

== ENCOUNTER 2016-11-18 06:06 | Day surgery (SDC) | payer MEDICAID ==
[~2016-11-18] VITALS: Ht 177.8 cm; Wt 65.8 kg
--- NOTE | ~2016-11-18 | OP ---
PATIENT NAME: ODETTE OH MEDICAL RECORD: [id number] :64 LOCATION:[facility] ADMISSION DATE: SURGEON: BC CHANG MD DATE OF OPERATION: 11/18/2016 REFERRING PHYSICIAN: Paresh Ledezma MD SURGEON: Bc Chang MD ANESTHESIA: Local MAC and regional block. PREOPERATIVE DIAGNOSES: Swelling of left arm and incomplete maturation of a left forearm arteriovenous fistula and dysfunction of left internal jugular tunneled dialysis catheter and also diagnosis of end-stage renal disease and dependence on hemodialysis. OPERATION PERFORMED: Left upper extremity fistulogram with angioplasty of the basilic vein in the upper arm and then removal of the left internal jugular tunneled dialysis catheter and insertion of a tunneled dialysis catheter via the right common femoral vein done under fluoroscopy and accessed with ultrasound guidance with documentation. OPERATIVE FINDINGS: Possible occlusion of a brachial vein is possibly due to prior PICC line and an area of roughening and mild narrowing in the upper third of the arm of the basilic vein. PROCEDURE IN DETAIL: The patient was brought to the operating room and a regional block and IV sedation administered. The block was supplemented with lidocaine 1% as needed. I performed an ultrasound-guided micropuncture access of the forearm fistula and placed a 6-Brazilian introducer. Contrast injection demonstrated primary outflow via the basilic vein with an area of roughening and mild stenosis in the proximal third of the upper arm and possibly occlusion of a brachial veins in the upper arm as well. I dilated the basilic vein area with an 8 mm diameter angioplasty balloon and a followup contrast injection demonstrated improvement in the appearance of that vein and there was quite good flow in the fistula. Hopefully, the relative venous hypertension and swelling in his left hand and forearm will be able to resolve with diminished venous pressures as a result of the basilic vein dilatation. The access in my opinion should be fairly easy to access that is very palpable with proximal occlusion. The 6-Brazilian introducer was removed and hemostasis obtained at the puncture site with a brief digital pressure and a [id number] 4-0 Prolene suture and sterile dressing was applied. I then approached the patient's left internal jugular tunneled catheter, which is not functioning. I was able to remove it with dissection through the tract from the entry site, its tip is sent for culture and the wound irrigated gently with antibiotic solution and dressing applied and direct pressure applied to the subcutaneous tunnel. I then went to the groin and using ultrasound guidance, again access the right common femoral vein and under fluoroscopy and inserted a HemoSplit catheter there which extended up into the inferior vena cava. Both lumens functioned well and they were then flushed with saline and then heparin locked. The catheter was sutured in position and sterile dressings were applied and the patient then awakened and taken to the recovery room in stable condition. Blood loss during the procedure essentially none. None was replaced. All sponges, instruments and needles were accounted for. No drain was used and no surgical specimen was submitted for histopathology. I believe he was inpatient at that time. OPERATIVE REPORT [id number] ODETTE OH TRANSINT:[id number] Voice Confirmation ID: [id number] DOCUMENT ID: [id number] BC CHANG MD CC: [id number] DICTATION DATE: 12/21/16 1054 OBSTETRICIAN: 12/21/16 1238 [facility] [place] [place] 11/18/16 [place] [id number] [place] [address]
[~2016-11-18 06:06] MED LIST changes: +ELIQUIS2.5 MG PO; +HYDRALAZINE HCL50 MG PO; +LIPITOR10 MG PO; +LONITEN2.5 MG PO; +MIRALAX17 GM PO; +PEPCID20 MG PO; +RENAGEL800 MG PO; +ZOFRAN8 MG PO
[2016-11-18 06:58] VITALS: Ht 177.8 cm; Wt 65.8 kg
[2016-11-18 07:28] LABS: BASOPHILS 0.1 % (0.0-2.0); EOSINOPHILS 2.9 % (0-7); HEMATOCRIT 32.6 % (42.0-54.0); HEMOGLOBIN 10.1 g/dL (13.5-17.5); IMMATURE GRANULOCYTES 0.2 % (0-5); MCH 26.8 pg (26.0-34.0); MCV 86.5 fL (80.0-100.0); MEAN PLATELET VOLUME 9.5 fL (7.4-10.4); MONOCYTES 8.2 % (2-11); NEUTROPHILS 69.6 % (40-80); PLATELET COUNT 189 10x3/uL (130-400); RBC 3.77 10x6/uL (4.20-6.10); RDW 19.3 % (11.5-14.5); WBC 10.1 10x3/uL (4.8-10.8)
[2016-11-18 07:54] LABS: ANION GAP 16.3 mmol/L (8-16); CALCIUM 8.5 mg/dL (8.5-10.1); CREATININE - SERUM 4.3 mg/dL (0.6-1.3); POTASSIUM - SERUM 3.3 mmol/L (3.5-5.1)
[2016-11-18 08:23] LABS: APTT 38.9 SECONDS (22.8-39.4); INR 1.25 (0.85-1.17); PROTIME 15.6 SECONDS (11.6-15.0)
--- NOTE | 2016-11-18 11:29 | NUR ---
1129: UNABLE TO FIND FAMILY EXT [phone]. ATTEMPTED X2.
--- NOTE | 2016-11-18 12:48 | NUR ---
THE PATIENT REQUESTS A SHORT STAY IN RECOVERY SO THAT HE CAN RETURN TO THE OUTPATIENT DEPATMENT SO THAT HE CAN EAT.
--- NOTE | 2016-11-18 14:05 | NUR ---
DR DE LOS SANTOS CALLED BACK AND STATED THAT THE PATIENT WAS OK TO DC HOME AND DOES NOT NEED TO COME TO COME BACK TO HIS OFFICE.
--- NOTE | 2016-11-18 15:00 | NUR ---
HAS DRESSED, SLING REMAINS IN PLACE. HAVE BEEPED LYUDMILA YANCEY [address] CHAND BEEPED BY MYSELF AND THROUGH OFFICE WITH NO CALL BACK.
--- NOTE | 2016-11-18 15:15 | NUR ---
SPOKE WITH DIALYSIS NURSE AND SHE GAVE ME LYUDMILA YANCEY CELL NUMBER, CALLED AND SPOKE WITH LYUDMILA, INFORMED OF DR CHURCHILL ORDER TO CALL PRIOR TO DC BECAUSE OF EKG CHANGED PRIOR TO SURGERY. READ HER WHAT DR JIMENEZ WROTE ON EKG AND ALSO DR DE LOS SANTOS HAD OK'D DISCHARGE, STATES OK TO DISCHARGE. DISHCARGE INSTRUCTIONS GIVEN. RX FOR PHYSICAL THERAPY EXPLAINED TO PATIENT TO GIVE TO HIS PHYSICAL THERAPY OF CHOICE.
== END 2016-11-18 15:30 | disposition home or self-care (01) ==
LOC: D.OPS 06:06
PROVIDERS: Anesthesiology
DX: T82.590A Other mechanical complication of surgically created arteriovenous fistula, initial encounter (principal); I12.0 Hypertensive chronic kidney disease with stage 5 chronic kidney disease or end stage renal disease; N18.6 End stage renal disease; Z99.2 Dependence on renal dialysis; R60.0 Localized edema; B19.20 Unspecified viral hepatitis C without hepatic coma; Z01.812 Encounter for preprocedural laboratory examination

== ENCOUNTER 2016-11-20 18:31 | Inpatient (IN) | payer MEDICAID ==
[~2016-11-20] VITALS: Ht 177.8 cm; Wt 68.0 kg
--- NOTE | ~2016-11-20 | OP ---
PATIENT NAME: ODETTE OH MEDICAL RECORD: [id number] :64 LOCATION:D. D.2133 ADMISSION DATE:11/22/16 SURGEON: BC CHANG MD DATE OF OPERATION: 11/23/2016 REFERRED BY: Jayde Ledezma MD PREOPERATIVE DIAGNOSIS: Left forearm arteriovenous fistula dysfunction and failure to mature. POSTOPERATIVE DIAGNOSIS: Left forearm arteriovenous fistula dysfunction and failure to mature secondary to venous stenosis. OPERATION PERFORMED: Left forearm arteriovenous fistula fistulogram carried through to the right atrium and balloon angioplasty forced maturation of a translocated basilic vein in the forearm from the wrist all the way to the axillary vein with an 8-mm x 60 mm angioplasty balloon. SURGEON: Bc Chang MD ANESTHESIA: General with LMA per CLASSIFIED ADVERTISING MANAGER. PREOPERATIVE NOTE: Mr. Oh is a 56-year-old -[place] gentleman, on chronic hemodialysis. He has a left forearm translocated basilic vein AV fistula, which has not been successfully used primarily to chronic edema in the left arm, which was found to be due to a proximal basilic vein stenosis, possibly related to prior PICC line insertion and also related to the presence of a left internal jugular tunneled hemodialysis catheter. Last week, I performed a fistulogram and dilated the vein and removed the central dialysis catheter and placed another tunneled femoral HemoSplit catheter. His arm and hand pain and swelling have nearly completely resolved and the fistula is patent with a good bruit and thrill. It is difficult to palpate. Dr. Ledezma feels it is not usable and I have been asked to do a fistulogram and additional indicated procedures up to and including implantation of an AV graft in the left arm. He is brought to the OR today as an inpatient. He was admitted over the weekend with bleeding from his new tunneled dialysis catheter tunnel. Fortunately, that has resolved, but while he still years an inpatient he is brought to the operating room for a repeat fistulogram. DESCRIPTION OF PROCEDURE: Under a general anesthetic with an LMA per CLASSIFIED ADVERTISING MANAGER, the patient is prepped and draped in sterile manner. I examined the left arm fistula with ultrasound and noted the basilic vein to be fairly widely patent and the proximal forearm it is a bit deep about 1 cm, otherwise less than a centimeter deep going down towards to the wrist. I accessed at once with ultrasound guidance and micropuncture technique and eventually placed a 6-Bulgarian introducer. This was distally, very close to the arterial anastomosis. Contrast injection with digital subtraction technique was performed repeatedly with proximal occlusion with the Scott embolectomy catheter, I was able to image the arterial anastomosis and radial artery and note that that vessel anastomosis are wide open. The radial artery being a very good caliber 5 mm to 8 mm in diameter. The vein appeared to be about 5-6 mm up to 8 mm in diameter in the forearm. I dilated the entire length of vein in the forearm with an 8 mm x 60 mm angioplasty balloon and dilated additional stenosis around the elbow and up in the arm up to the axillary vein. Completion angiography demonstrated a very rapid flow through a suitably large fistula. There was no obstruction in OPERATIVE REPORT [id number] ODETTE OH the central vasculature, superior vena cava and right atrium, etc. I noted that with proximal occlusion of the fistula at the antecubital space, the fistula in the forearm is very easily palpable and should be accessible percutaneously for dialysis access. The 6-Bulgarian introducer was removed and hemostasis obtained at that site with direct gentle pressure, a [id number]-wv-fgxjq 4-0 Prolene suture and a dressing of Avitene Ultrafoam, Tegaderm, and Cavilon skin prep. The patient was awakened and taken to the recovery room in stable condition. There was no blood loss during the procedure. All sponges, instruments and needles were accounted for. No drain was used and no surgical specimen was submitted for histopathology. PLAN: The patient will be able to be discharged after dialysis. I would like to follow up with him in my office next week. I have ordered a hemodialysis access ultrasound and a specifically requested multiple measurements of vein diameter and depth from wrist to antecubital space. I had recommend that fistula will be accessed at first with one needle technique and using 17-gauge needles, but I think that if it functions as well as I anticipated, it will be fairly straightforward to advance him to a standard access technique and that can lead to hopefully early removal of the femoral tunnel dialysis catheter. TRANSINT:[id number] Voice Confirmation ID: [id number] DOCUMENT ID: [id number] BC CHANG MD CC: LEONA CHAND MD and JAYDE LEDEZMA MD [id number] DICTATION DATE: 11/23/1650 NEW ACCOUNT INTERVIEWER: 11/23/16 1752 [facility] [address] [place] [address]
--- NOTE | 2016-11-20 18:37 | NUR ---
PATIENT ARRIVED TO ROOM VIA WHEELCHAIR WITH ASSISTANCE OF REGIONAL VICE PRESIDENT SURGICAL SALES. PATIENT ABLE TO TRANSFER SELF TO BED. DRESSING REMOVED TO LEFT UPPER THIGH TO OBSERVE IS HEMESPLIT IS SEEPING. NO SEEPING AT THIS TIME. AREA NOTED TO HAVE CLOTTED. PRESSURE DRESSING REAPPLIED TO AREA AND SANDBAG PLACED ON TOP OF PRESSURE DRESSING TO PREVENT SEEPING. PATIENT IS ALERT/ORIENTED. NO ACUTE DISTRESS. REQUESTING PAIN MEDICATION DINNER AT THIS TIME. CALL LIGHT PLACED WITHIN REACH. NO DISTRESS.
[2016-11-20] MEDS ORDERED: NORVASC10 MG PO (18:50)
[2016-11-20] MEDS ORDERED: LIPITOR10 MG PO (18:52)
[2016-11-20] MEDS ORDERED: COREG25 MG PO (18:53)
[2016-11-20] MEDS ORDERED: CATAPRES0.1 MG PO (18:54)
[2016-11-20] MEDS ORDERED: LONITEN2.5 MG PO (19:00)
[2016-11-20] MEDS ORDERED: OMEPRAZOLE20 M1 PO (19:01)
[2016-11-20] MEDS ORDERED: ZOFRAN4 MG PO (19:02)
[2016-11-20] MEDS ORDERED: PROTONIX40 MG PO (19:03)
--- NOTE | 2016-11-20 20:05 | NUR ---
CALLED MOLDER SETTER AND NOTIFIED HER OF PT'S NEED FOR MEDS. DR. CHAND HERE. ASSESSMENT DONE. PT A/O. SAND BAG AND PRESSURE DRESSING TO LEFT GROIN. BUPERNEX GIVEN FOR PAIN PER DR. CHAND ORDER. PT'S B/P ELEVATED TO 229/120. PT STATES HIS B/P GOES UP THAT HIGH WHEN HE IS HURTING. DR. CHAND AWARE OF B/P. WILL MONITOR. CALL LIGHT WITH IN REACH. IP TO RIGHT CHEST SL, FLUSHES WELL, GOOD BLOOD RETURN.
[2016-11-20 20:19] VITALS: BP 229/120
--- NOTE | 2016-11-20 21:09 | NUR ---
B/P 203/110. PT SITTING UP IN BED EATING SNACK. STATES PAIN IN IMPROVING. PT DENIES SOB, OR CHEST PAIN. HE DID NOT TAKE B/P MEDS THIS AFTERNOON. WILL GIVE MEDS PER ORDER AND CONT. TO MONITOR B/P.
--- NOTE | 2016-11-20 22:32 | NUR ---
PT SLEEPING. HOB ELEVATED. SAND BAG TO LEFT GROIN WITH PRESSURE DRESSING. BLEEDING AT SITE IS STABLE, PRESSURE DRESSING INTACT WITH NO S/S OF SITE BLEEDING THROUGH. CALL LIGHT WITH IN REACH. WILL CONT. TO MONITOR. B/P MEDS GIVEN PO, WILL MONITOR.
[2016-11-21] VITALS (8 sets, daily range): BP systolic 181–229; BP diastolic 56–120; BMI 21.5
--- NOTE | 2016-11-21 01:36 | NUR ---
PT SITTING UP IN BED A/O EATING SHERBET. PT C/O NUMBNESS IN LEFT LEG. NURSE REMOVED SAND BAG TO ASSESS HEMESPLIT SITE FOR BLEEDING. NO BLEEDNING NOTED. PT THEN BEGIN MOVING HIS LEG IN BED BACK AND FORTH. BLEEDING NOTED UNDER PRESSURE DRESSING. SAND BAG RE-APPLIED. PT TOLD NOT TO MOVE HIS LEG ANYMORE IF POSSIBLE. PT VERBALIZED UNDERSTANDING. PT THEN LIFTS HIS SHIRT UP AND TELLS NURSE " I WAS HERE A WHILE AGO, I DON'T REMEMBER WHEN, BUT I HAD A PROCEDURE, AND I DON'T REMEMBER WHAT, BUT THE STITCHES ARE STILL IN THERE. " NURSE OBSERVED THAT PT DID HAVE 2 OLD SURGICAL INCESIONS ON LUQ OF ABD WITH SUTURES INTACT WITH THE SITES HEALED AND GOOD SKIN GROWN OVER THE SUTURES. PT DENIES PAIN OR DISCOMORT AT THESE SITES. NURSE LOOKED BACK AT OLD RECORDS AT PT WAS INFACT HERE ON 10/19/16. WILL INFORM DAY SHIFT NURSE TO HAVE MD LOOK AT SITE.
--- NOTE | 2016-11-21 02:42 | NUR ---
PT SLEEPING. AWAKEN BY NURSE. MANUAL B/P DONE BY NURSE 184/92. PT DENIES NEEDS AT THIS TIME. NO DISTRESS NOTED. SAND BAG IN PLACE TO PT'S LEFT GROIN. NO NEW BLEEDING NOTED. CALL LIGHT WITH IN REACH. WILL CONT. TO MONITOR.
[2016-11-21 05:57] LABS: BASOPHILS 0.2 % (0.0-2.0); EOSINOPHILS 4.4 % (0-7); HEMOGLOBIN 9.6 g/dL (13.5-17.5); IMMATURE GRANULOCYTES 0.8 % (0-5); LYMPHOCYTES 20.4 % (15-50); MCH 26.2 pg (26.0-34.0); MCV 87.4 fL (80.0-100.0); MEAN PLATELET VOLUME 9.4 fL (7.4-10.4); NEUTROPHILS 63.2 % (40-80); PLATELET COUNT 174 10x3/uL (130-400); RBC 3.66 10x6/uL (4.20-6.10); RDW 19.2 % (11.5-14.5); WBC 6.6 10x3/uL (4.8-10.8)
[2016-11-21 06:06] LABS: INR 1.06 (0.85-1.17); PROTIME 13.7 SECONDS (11.6-15.0)
[2016-11-21 06:15] LABS: ANION GAP 15.1 mmol/L (8-16); CALCIUM 8.4 mg/dL (8.5-10.1); CARBON DIOXIDE 27.3 mmol/L (21.0-32.0); POTASSIUM - SERUM 3.4 mmol/L (3.5-5.1)
--- NOTE | 2016-11-21 07:05 | NUR ---
RECEIVED REPORT. ASSUMED CARE OF PATIENT. CALL LIGHT WITHIN REACH. DENIES NEEDS. SANDBAG TO LEFT THIGH. NO ACTIVE SEEPING FROM SITE. PRESSURE DRESSING INTACT. ENCOURAGED PATIENT NOT TO MOVE AND FLEX HIS LEG TO PREVENT BREAKING ANY CLOTS LOOSE THAT HAVE FORMED. PATIENT QUESTIONING WHEN BREAKFAST WILL ARRIVE. NO DISTRESS. CALL LIGHT IWHTIN REACH.
--- NOTE | 2016-11-21 08:46 | NUR ---
MEDICATED FOR PAIN AT THIS TIME. NO DISTRESS.
--- NOTE | 2016-11-21 11:00 | NUR ---
PATIENT NOTED TO HAVE BEEN SEEPING BLOOD FROM LEFT THIGH. FRESH BLOOD NOTED ON SHEETS. DRESSING CHANGED DUE TO SATURATION, CLOT FORMED TO ENTIRE HEMESPLIT. CLOT LEFT INTACT. NEW DRY 4X4'S PLACED AND SECURED WITH PRESSURE DRESSING. RENAL SAILBOAT CAPTAIN HODA AT BEDSIDE. PATIENT ALERT/ORIENTED. DENIES PAIN. SANDBAG REAPPLIED TO LEFT THIGH. CALL LIGHT PLACED WITHIN REACH. LINENS ALSO CHANGED AT THIS TIME. FRESH ICE CHIPS PROVIDED. NO DISTRESS.
--- NOTE | 2016-11-21 17:00 | NUR ---
AT BEDSIDE TO CHECK ON PATIENT HEMESPLIT. FAMILY AT BEDSIDE VISITING.
--- NOTE | 2016-11-21 17:30 | NUR ---
TELEMETRY PLACED PER TO MAKE SURE PATIENT WAS NOT HAVING ATRIAL FIB. NEED TO MONTIOR PATIENT RHYTHM DUE TO THE NEED TO STOP THE ELIQUIS SO PATIENT WILL NOT SEEP BLOOD FROM HIS LEFT THIGH HEMESPLIT.
[2016-11-21 17:31] LABS: APPEARANCE HAZY (CLEAR); BACTERIA FEW /hpf (NONE SEEN); BILIRUBIN NEGATIVE (NEGATIVE); COLOR YELLOW (YELLOW); EPITHELIAL CELLS 0-5 /hpf (0-5); GLUCOSE NEGATIVE (NEGATIVE); KETONE NEGATIVE (NEGATIVE); LEUKOCYTE ESTERASE TRACE (NEGATIVE); NITRITE NEGATIVE (NEGATIVE); PROTEIN 2+ mg/dL (NEGATIVE); RED CELLS - URINE >50 /hpf (0-5); SPECIFIC GRAVITY 1.015 (1.005-1.020); UROBILINOGEN NORMAL (NORMAL)
[2016-11-21 17:33] LABS: UDS - BARB NEGATIVE QUAL (NEGATIVE); UDS - BENZO POSITIVE QUAL (NEGATIVE); UDS - COCAINE POSITIVE QUAL (NEGATIVE); UDS - METH NEGATIVE QUAL (NEGATIVE); UDS - OPIATE POSITIVE QUAL (NEGATIVE); UDS - PCP NEGATIVE QUAL (NEGATIVE); UDS - THC NEGATIVE QUAL (NEGATIVE)
[2016-11-21 17:35] LABS: UDS - AMPHET POSITIVE QUAL (NEGATIVE)
--- NOTE | 2016-11-21 18:33 | NUR ---
MEDICATED FOR PAIN AT THIS TIME. NO DISTRESS.
--- NOTE | 2016-11-21 20:09 | NUR ---
REC'D IN BED AWAKE AND ALERT. RESP EVEN AND UNLABORED WITH NO DISTRESS NOTED OR VOICED. CAN EXPRESS NEEDS AND WANTS. C/O PAIN RATING 7/10 TO RIGHT LEG. ASSESSMENT COMPLETED. C/L N REACH AT REACH AT BEDSIDE.
--- NOTE | 2016-11-21 21:40 | NUR ---
PT WAS MEDICATED AT THIS TIME WITH ZOFRAN 4 MG PER ORDERS DUE TO EMESIS X 2. WILL CONTINUE TO OBSERVE FOR NEEDS. C/L IN REACH AT BEDSIDE.
--- NOTE | 2016-11-21 23:49 | NUR ---
WAS MEDICATED WITH BUPRENEX 0.2 MG PER ORDERS FOR C/O PAIN RATING 7/10 ON PAIN SCALE. WILL CONTINUE TO OBSERVE FOR NEEDS. C/L IN REACH. C/L UIN REACH.
[2016-11-22] VITALS: BP 175/97
--- NOTE | 2016-11-22 00:30 | NUR ---
COLD MILL OPERATOR AT BEDSIDE FOR VS. NEEDS ADDRESSED AT THIS TIME. CALL LIGHT IN REACH. WILL CONT TO MONITOR.
--- NOTE | 2016-11-22 03:00 | NUR ---
NO CHANGES NOTED PT RESTING WELL AT THIS TIME. C/L IN REACH AT BEDSIDE.
[2016-11-22 04:00] VITALS: BP 175/95
[2016-11-22 06:01] LABS: BASOPHILS 0.1 % (0.0-2.0); EOSINOPHILS 3.4 % (0-7); IMMATURE GRANULOCYTES 0.3 % (0-5); LYMPHOCYTES 18.1 % (15-50); MCH 26.4 pg (26.0-34.0); MCV 87.7 fL (80.0-100.0); MEAN PLATELET VOLUME 9.2 fL (7.4-10.4); MONOCYTES 7.5 % (2-11); NEUTROPHILS 70.6 % (40-80); PLATELET COUNT 146 10x3/uL (130-400); RDW 19.2 % (11.5-14.5); WBC 7.1 10x3/uL (4.8-10.8)
[2016-11-22 06:08] LABS: RBC 2.77 10x6/uL (4.20-6.10)
[2016-11-22 06:09] LABS: HEMATOCRIT 24.3 % (42.0-54.0); HEMOGLOBIN 7.3 g/dL (13.5-17.5)
[2016-11-22 06:18] LABS: ANION GAP 13.1 mmol/L (8-16); CARBON DIOXIDE 24.2 mmol/L (21.0-32.0); CREATININE - SERUM 4.5 mg/dL (0.6-1.3); PHOSPHOROUS 4.3 mg/dL (2.5-4.9); POTASSIUM - SERUM 3.3 mmol/L (3.5-5.1)
[2016-11-22 06:19] LABS: CALCIUM 6.9 mg/dL (8.5-10.1)
[2016-11-22 07:25] LABS: HEMATOCRIT 27.2 % (42.0-54.0); HEMOGLOBIN 8.3 g/dL (13.5-17.5)
[2016-11-22 07:41] VITALS: BP 199/97
--- NOTE | 2016-11-22 08:20 | NUR ---
ASSESSMENT COMPLETED. ALERT AND ORIENTED. TELEMERTY SHOWS SR. RIGHT IPSL. HEMISPLIT TO RIGHT THIGH WITH PRESSURE DRSG DRY AND INTACT. NO NEEDS VOICED. WILL MONITOR. CALL LIGHT IN REACH WITH SRUP
--- NOTE | 2016-11-22 08:45 | NUR ---
RESTS IN BED WITH CALL LIGHT IN REACH. SINGH NEEDS AT THIS TIME. WILL MONITOR.
[2016-11-22 12:23] VITALS: Ht 177.8 cm; Wt 68.0 kg
--- NOTE | 2016-11-22 13:30 | NUR ---
PT STILL IN DIAYLIS
--- NOTE | 2016-11-22 14:12 | NUR ---
DIALYSIS COORDINATOR: PATIENT PATHWAYS:[facility] on Tue/Tue/Tue @ 10:00am. Med recs to home unit for their charts. NICKY HAAS.
[2016-11-22 16:22] VITALS: BP 133/96
--- NOTE | 2016-11-22 18:15 | NUR ---
HOB UP. NO BLEEDING NOTED TO HEMASPLIT SITE. NPO FOR SURGERY TOMORROW. NO ORDERS YET FOR PROCEDURE.
[2016-11-22 21:17] VITALS: BP 169/85
[2016-11-23 00:40] VITALS: BP 173/91
--- NOTE | 2016-11-23 01:52 | NUR ---
1940)DRG. TO HEMASPLIT SITE WITH NO FURTHER BLEEDING OBSERVED.REINFORCED N[facility] AT [facility] FOR POSSIBLE PROSSIBLE PROCEDURE THIS AM. VOICES UNDERSTANDING. WILL CONTINUE TO MONITOR FOR ANY FURTHER CHGES AND FOLLOW CURRENT PLAN OF CARE.
[2016-11-23 05:57] VITALS: BP 183/96
[2016-11-23 06:46] LABS: HEMATOCRIT 28.6 % (42.0-54.0); HEMOGLOBIN 8.9 g/dL (13.5-17.5); LYMPHOCYTES 19.6 % (15-50); MCH 27.3 pg (26.0-34.0); MCHC 31.1 g/dL (31.0-37.0); MCV 87.7 fL (80.0-100.0); MEAN PLATELET VOLUME 8.9 fL (7.4-10.4); NEUTROPHILS 69.1 % (40-80); RBC 3.26 10x6/uL (4.20-6.10); RDW 19.9 % (11.5-14.5); WBC 7.1 10x3/uL (4.8-10.8)
[2016-11-23 06:47] LABS: PLATELET COUNT 184 10x3/uL (130-400)
[2016-11-23 06:59] LABS: ANION GAP 12.6 mmol/L (8-16); CALCIUM 8.1 mg/dL (8.5-10.1); CARBON DIOXIDE 28.1 mmol/L (21.0-32.0); CREATININE - SERUM 4.1 mg/dL (0.6-1.3); PHOSPHOROUS 4.6 mg/dL (2.5-4.9); POTASSIUM - SERUM 3.7 mmol/L (3.5-5.1)
--- NOTE | 2016-11-23 07:05 | NUR ---
RECEIVED REPORT. ASSUMED CARE OF PATIENT. CALL LIGHT WITHIN REACH. ALERT/AWAKE, SITTING UP IN BED. PATIENT WILL HAVE PROCEDURE THIS AM. NO DISTRESS. DENIES NEEDS.
--- NOTE | 2016-11-23 07:52 | NUR ---
PATIENT PREOP'T BY NURSE VENEER DEPARTMENT MANAGER SUSAN MEDINA AT 0745.
--- NOTE | 2016-11-23 07:54 | NUR ---
PATIENT LEFT UNIT VIA BED AT THIS TIME FOR SURGICAL PROCEDURE. NO DISTRESS UPON LEAVING UNIT.
[2016-11-23 08:00] VITALS: BP 189/97
--- NOTE | 2016-11-23 09:13 | NUR ---
PATIENT REMAINS IN SURGERY. UNAVAILABLE FOR MEDICATION ADMINISTRATION AT THIS TIME.
[2016-11-23 10:25] VITALS: BP 161/97
--- NOTE | 2016-11-23 10:33 | NUR ---
RECEIVED PATIENT FROM SURGERY. ALERT/ORIENTED. GOOD BRUIT AND THRILL TO LEFT AV FISTULA. REQUESTING FOOD AT THIS TIME. POST V/S STABLE AND RECORDED. NO DISTRESS. O2 97% ON ROOM AIR AT THIS TIME. DRESSING CLEAN DRY AND INTACT TO LEFT THIGH HEMESPLIT. NO BLEEDING NOTED FROM SITE. CALL LIGHT WITHIN REACH. NO DISTRESS.
--- NOTE | 2016-11-23 12:04 | NUR ---
ULTRASOUND AT BEDSIDE DOING MEASUREMENTS OF PATIENT ARM AT THIS TIME.
[2016-11-23 12:08] VITALS: BP 165/85
--- NOTE | 2016-11-23 13:56 | NUR ---
Patient Name: ODETTE OH Admission Status: Elective Accout number: [id number] Admission Date: 11-22-2016 : 1960 Admission Diagnosis: Attending: LAURIE Current LOS: 1 Anticipated DC Date: 11-23-2016 Planned Disposition: Home with Home Health Primary Insurance: MEDICAID [place] PLANNED EXTERNAL PROVIDER: [employer] [facility] Discharge Planning Comments: * Is the patient Alert and Oriented? Yes 0 * How many steps to enter\exit or inside your home? 1-2 0 * PCP DR. FRANKLIN IN [place] 0 * Pharmacy [facility] [place] 0 * Preadmission Environment Home with Family 0 * ADLs Independent 0 * Equipment Cane 0 * Other Equipment NO MEDICAL EQUIPMENT PROVIDER PREFERENCE 0 * List name and contact numbers for known caregivers / representatives who currently or will assist patient after discharge: [place]OTHER [place], [place] [phone] 0 * Community resources currently utilized Home Health / OTHER 0 * Please name any agencies selected above. [facility] 0 OUTPATIENT DIALYSIS, [facility], 0945 AM, FAMILY TRANSPORTS * Additional services required to return to the preadmission environment? No 0 * Can the patient safely return to the preadmission environment? Yes 0 * Has this patient been hospitalized within the prior 30 days at any hospital? No 0 CM MET WITH PT IN ROOM TO DISCUSS DISCHARGE PLANNING AND NEEDS. PT REPORTS LIVING AT HOME INDEPENDENTLY WITH HIS TWO BROTHERS AND ONE SISTER. PT HAS A CANE WITH NO MEDICAL EQUIPMENT PROVIDER PREFERENCE. PT HAS HOME HEALTH WITH [facility]. PT HAS OUTPATIENT DIALYSIS IN [place] ON M// SCHEDULE AT 0945AM. FAMILY TRANSPORTS TO AND FROM DIALYSIS. CM DISCUSSED AVAILABILITY OF HOME HEALTH, REHAB SERVICES AND MEDICAL EQUIPMENT. PT DENIES DISCHARGE NEEDS, WOULD LIKE HOME HEALTH RESUMED. PT'S PHONE BATTERY WAS AND PT ASKED FOR HELP CONTACTING FAMILY FOR TRANSPORT HOME. CM ASSISTED PT IN CALLING HIS FAMILY AND ARRANGING MOTORCYCLE TESTER AT 4PM TODAY. CM CALLED [facility], , NOTIFIED MARIA DEL CARMEN OF PT'S DISCHARGE FOR RESUMPTION OF CARE. CM FAXED REFERRAL TO [facility] AT [phone]. NO FURHTER NEEDS IDENTIFIED. Doctor Of Audiology: Jeff Christopher
--- NOTE | 2016-11-23 15:44 | NUR ---
DISCHARGE INSTRUCTIONS PROVIDED TO PATIENT AT THIS TIME. RENAL SILK FINISHER HAS BEEN PAGED TO QUESTION WHETHER OR NOT THEY WANT PATIENT TO CONTINUE ELIQUIS WHEN HE GETS HOME. WE HAVE BEEN HOLDING ELIQUIS DURING THIS ADMISSION DO TO BLEEDING FROM LEFT THIGH HEMESPLIT. AWAITING FOR CALL BACK. PATIENT STATES HE IS NOT GOING TO TAKE IT EVEN IF THEY WANT HIM TO BECAUSE HE DOES NOT WANT TO BE ON A "BLOOD THINNER". AT PATIENTS REQUEST, RAFAEL CIRCLED ON PATIENTS DISCHARGE PAPERWORK SO HE WOULD BE AWARE OF WHICH MEDICATION WAS THE "BLOOD THINNNER".
[2016-11-23 16:00] VITALS: BP 158/83
--- NOTE | 2016-11-23 17:26 | NUR ---
HEUBER NEEDLE REMOVED FROM IMPLANTED RIGHT CHEST PORT AT THIS TIME. NO ACCESS AVAILABLE PATIENT IS DISCHARGING TO HOME. 2X2 AND TEGADERM APPLIED TO SITE. NO BLEEDING.
--- NOTE | 2016-11-23 18:14 | NUR ---
PATIENT LEFT UNIT VIA WHEELCHAIR WITH FAMILY AT THIS TIME. PATIENT DISCHARGED TO HOME WITH ALL PERSONAL BELONGINGS. PATIENT IN NO DISTRESS UPON LEAVING UNIT. PATIENT THANKED THIS MANAGER BUDGET FOR CARES RENDERED DURING HIS STAY.
== END 2016-11-23 18:00 | disposition home health service (06) | DRG 252 ==
LOC: D.M2 18:31 → OBSVTIME 18:31 → D.M2 18:31
PROVIDERS: ADMIT Internal Medicine Nephrology
DX: T82.898A Other specified complication of vascular prosthetic devices, implants and grafts, initial encounter (principal); N18.6 End stage renal disease; I13.2 Hypertensive heart and chronic kidney disease with heart failure and with stage 5 chronic kidney disease, or end stage renal disease; Y83.8 Other surgical procedures as the cause of abnormal reaction of the patient, or of later complication, without mention of misadventure at the time of the procedure; Z86.19 Personal history of other infectious and parasitic diseases; D63.1 Anemia in chronic kidney disease; E83.39 Other disorders of phosphorus metabolism; I50.9 Heart failure, unspecified; Z99.2 Dependence on renal dialysis; Z91.19 Patient's noncompliance with other medical treatment and regimen

== ENCOUNTER 2016-11-24 02:25 | Inpatient (IN) | payer MEDICAID ==
[~2016-11-24] VITALS: Ht 177.8 cm; Wt 73.0 kg
[~2016-11-24 02:25] MED LIST changes: +CATAPRES0.1 MG PO; +NORVASC10 MG PO; +PROTONIX40 MG PO; +ZOFRAN4 MG PO
--- NOTE | 2016-11-24 08:00 | NUR ---
INTRODUCED MYSELF TO PT PRIMARY RN FOR TODAYS SHIFT. PT IS ALERT AND ORIENTED SITTING UP IN BED RESTING QUIETLY. SHIFT ASSESSMENT COMPLETED. PT HAS A R.HAND PIV SL. DRSG CDI AND SWAB CAPS IN USE. PT HAS A RIGHT CHEST IP NOTED BUT ITS NOT ACCESSED. PT HAS A L.LEG HEMESPLIT NOTED WITH DRSG SOILED WITH BLOOD. REINFORCED DRSG AND ADDED SANDBAG TO PREVENT FURTHER BLEEDING. PT DENIES ANY CURRENT NEEDS. CL IN REACH, WILL CPOC.
[2016-11-24 08:27] LABS: BASOPHILS 0.1 % (0.0-2.0); EOSINOPHILS 3.3 % (0-7); HEMATOCRIT 29.3 % (42.0-54.0); HEMOGLOBIN 9.2 g/dL (13.5-17.5); IMMATURE GRANULOCYTES 0.3 % (0-5); LYMPHOCYTES 15.3 % (15-50); MCHC 31.4 g/dL (31.0-37.0); MCV 89.3 fL (80.0-100.0); MEAN PLATELET VOLUME 10.2 fL (7.4-10.4); MONOCYTES 9.5 % (2-11); NEUTROPHILS 71.5 % (40-80); PLATELET COUNT 206 10x3/uL (130-400); RBC 3.28 10x6/uL (4.20-6.10); RDW 19.2 % (11.5-14.5)
[2016-11-24 08:29] LABS: WBC 8.9 10x3/uL (4.8-10.8)
[2016-11-24 08:32] LABS: ANION GAP 15.9 mmol/L (8-16); CALCIUM 8.1 mg/dL (8.5-10.1); CREATININE - SERUM 4.7 mg/dL (0.6-1.3)
[2016-11-24 08:34] LABS: POTASSIUM - SERUM 4.9 mmol/L (3.5-5.1)
[2016-11-24 08:50] VITALS: BP 183/96
--- NOTE | 2016-11-24 09:30 | NUR ---
PT LEAVING FLOOR FOR DIALYSIS.
[2016-11-24 10:15] VITALS: Ht 177.8 cm; Wt 73.0 kg
--- NOTE | 2016-11-24 13:39 | NUR ---
HEMODIALYSIS COMPLETED, NET FLUID REMOVAL OF 3 LITERS, TOLERATED WELL. PATIENT HAD CONTINUOUS BLEEDING FROM CATHETER SITE, WHEN PATIENT WAS DONE WITH TX, BLEEDING WAS AT AN APPROXIMATE RATE OF 5ML PER HOUR. DID NOT CHANGE DRESSING BECAUSE FELT THIS WOULD EXACERBATE THE BLEEDING. PATIENT WAS RETURNED TO ROOM, REPORT WAS CALLED TO FLOOR NURSE WHO WOULD BE IN TO ASSESS PATIENT AND TO APPLY NEW PRESSURE DRESSING TO SITE UPON RETURN.
--- NOTE | 2016-11-24 14:03 | NUR ---
PT RETURNED FROM DIALYSIS. L.LEG HEMESPLIT BLEEDING STILL. ABDOMINAL DRSG PLACED AND PRESSURE APPLIED. PT C/O PAIN I PAGED RENAL TABLE CUT OFF SAW OPERATOR AND WILL CTM.
[2016-11-24 14:33] LABS: INR 1.16 (0.85-1.17); PROTIME 14.7 SECONDS (11.6-15.0)
[2016-11-24 14:35] LABS: APTT 149.2 SECONDS (22.8-39.4)
--- NOTE | 2016-11-24 14:37 | NUR ---
PT CALLED REQUESTING PRN PAIN MEDICATION AND WAS PROVIDED WITH IT. WOULD NOW LIKE TO REST. NO FURTHER NEEDS. CL IN REACH, BED IN LOWEST, SIDE RAILS X2.
--- NOTE | 2016-11-24 14:54 | NUR ---
PT HAS ORDER FOR YANI COLON AND SCDS. PT REFUSED AND STATES THEY ARENT COMFORTABLE AND HE IS AMBULATORY.
[2016-11-24 16:09] VITALS: BP 171/85
[2016-11-24 19:00] VITALS: BP 153/108
--- NOTE | 2016-11-24 19:32 | NUR ---
ASSESSMENT SUNNY A&O, PT SITTING UP IN BED WATCHING TV. RESPERATIONS EVEN, RIGHT HAND IV SL, SITE CLEAN AND DRY. LEFT GROIN HEMOSPLIT IN PLACE, DRSG INTACT. INFORMED PT THAT HE NEEDS TO HAVE NOTHING TO EAT OR DRINK AFTER MN DUE TO SURGERY IN THE MORNING, PT STATED THAT HE HASNT SEEN OR TALKED TO A DOCTOR YET ABOUT SURGERY AND IS UNAWARE OF PROCEDURE. WILL CALL DR CHANG AND NOTIFY HIM OF PTS STATEMENT.
--- NOTE | 2016-11-24 20:56 | NUR ---
SPOKE WITH DR CHANG, INFORMED HIM THAT PT WANTED TO SPEAK WITH THE DOCTOR BEFORE SURGERY,DR CHANG STATED THAT HE WILL BE HERE IN THE MORNING TO TALK WITH HIM.
--- NOTE | 2016-11-24 21:18 | NUR ---
NORCO 1 TAB GIVEN FOR C/O PAIN TO LEFT LEG. DRSG TO LEFT LEG BLEEDING THROUGH, REINFORCED DRSG WITH 4X4S, ABD PAD AND TAPE, WILL CONT TO MONITOR.
[2016-11-25] VITALS (7 sets, daily range): BP systolic 131–198; BP diastolic 67–109
--- NOTE | 2016-11-25 00:56 | NUR ---
RESTING WITH EYES CLOSED, RESPERATIONS EVEN, NO S/S DISTRESS NOTED.
--- NOTE | 2016-11-25 03:40 | NUR ---
LANDSCAPE AND YARDWORK LABORER AT BEDSIDE TO OBTAIN VITALS, CALL LIGHT IN REACH. WILL CONTINUE WITH PLAN OF CARE.
--- NOTE | 2016-11-25 04:10 | NUR ---
NORCO 1 TAB GIVEN WITH A SMALL SIP OF WATER, FOR C/O PAIN TO LEFT LEG, RATES PAIN AT A 7 ON PAIN SCALE.
[2016-11-25 05:17] LABS: BASOPHILS 0.1 % (0.0-2.0); EOSINOPHILS 3.1 % (0-7); HEMATOCRIT 29.7 % (42.0-54.0); HEMOGLOBIN 9.1 g/dL (13.5-17.5); IMMATURE GRANULOCYTES 0.4 % (0-5); LYMPHOCYTES 22.8 % (15-50); MCH 26.5 pg (26.0-34.0); MCHC 30.6 g/dL (31.0-37.0); MEAN PLATELET VOLUME 9.9 fL (7.4-10.4); MONOCYTES 13.2 % (2-11); NEUTROPHILS 60.4 % (40-80); PLATELET COUNT 194 10x3/uL (130-400); RBC 3.44 10x6/uL (4.20-6.10); RDW 18.6 % (11.5-14.5); WBC 7.9 10x3/uL (4.8-10.8)
[2016-11-25 05:23] LABS: MCV 86.3 fL (80.0-100.0)
[2016-11-25 05:37] LABS: ANION GAP 13.6 mmol/L (8-16); CALCIUM 8.1 mg/dL (8.5-10.1); CARBON DIOXIDE 27.7 mmol/L (21.0-32.0); POTASSIUM - SERUM 4.3 mmol/L (3.5-5.1)
--- NOTE | 2016-11-25 06:25 | NUR ---
DIRECTOR RADIO AT BED SIDE, HIBICLEANSE BATH DONE.
--- NOTE | 2016-11-25 06:27 | NUR ---
SPOKE WITH RAFFAELE IN SURGERY, RAFFAEEL ASKING IF ANYTHING WAS ORDERED PROPHYLACTICLY FOR HIS IODINE ALLERGY, BECAUSE PT HAD PREVIOUSLY STATED THAT IODINE MAKES HIS LIPS SWELL. AFTER LOOKING THROUGH PTS CHART, IODINE WASNT LISTED AN ALLERGY. ENTERED PTS ROOM ASKED PT WAS HIS ALLERGIES ARE AND PT STATED THAT HE WASNT ALLERGIC TO ANYTHING, ASKED PT SPECIFICALLY IF HE WAS ALLERGIC TO IODINE, SHRIMP OR SHELL FISH AND PT STATED NO, THAT HE WAS NOT ALLERGIC TO ANY OF THE ABOVE. NOTIFIED RAFFAELE IN SURGERY.
--- NOTE | 2016-11-25 07:38 | NUR ---
AM ROUNDS - PT IN BED. DRESSING TO LEFT THIGH OVER HEMOSPLIT. DRESSING INTACT. RIGHT WRIST FISTULA +BRUIT/THRILL, SMALL DRESSING INTACT. RIGHT CHEST INFUSAPORT SEEN. PT ON ROOM AIR. RIGHT HAND SL SEEN. PT HAS NO NEEDS AT THIS TIME. WILL CONTINUE TO MONITOR.
--- NOTE | 2016-11-25 07:59 | NUR ---
TO OR VIA BED.
--- NOTE | 2016-11-25 12:26 | NUR ---
1015-RECEIVED VIA BED FROM WITH LEFT GROIN HEMISPLIT AND SANDBAG TO LEFT GROIN AREA. SALINE LOCK SEEN TO RIGHT HAND. PATIENT REPORTS TO BEING HUNGRY, LATE BREAKFAST TRAY ORDERED.
--- NOTE | 2016-11-25 12:51 | NUR ---
DIALYSIS COORDINATOR: PATHWAYS: [facility] MWF @ 9:45am. Medical records forwarded to unit for records. NICKY HAAS.
--- NOTE | 2016-11-25 13:20 | NUR ---
COMPLAINTS OF PAIN TO LEFT LEG AND "MY BALLS BURN". NORCO GIVEN FOR PAIN 05/24. REMOVED SANDBAG FROM LEFT LEG, DRESSING IS DRY AND INTACT
--- NOTE | 2016-11-25 17:25 | NUR ---
PATIENT IS RATING PAIN 10/10 AGAIN TO HIS LEFT LEG, CALL PLACED TO [facility]. JUNG GIVEN. PATIENT IS WANTING "MORPHINE OR DILAUDID THROUGH MY IV". WILL AWAIT CALL BACK.
--- NOTE | 2016-11-25 17:30 | NUR ---
CALL BACK FROM [facility] WITH NO NEW ORDERS.
--- NOTE | 2016-11-25 19:30 | NUR ---
RECEIVED REPORT FROM DAY NURSE. COMPLAINS OF LEG PAIN, SAYS JUNG IS NOT WORKING, BED IS LOW, SRX2, CALL LIGHT IN REACH, WILL CONTINUE TO MONITOR
[2016-11-26] VITALS: BP 150/95
--- NOTE | 2016-11-26 04:17 | NUR ---
ECONOMIC SPECIALIST AT BEDSIDE TO OBTAIN VITALS, CALL LIGHT IN REACH. WILL CONTINUE WITH PLAN OF CARE.
--- NOTE | 2016-11-26 05:03 | NUR ---
ASKING FOR PAIN MEDS, WILL GIVE NORCO, DENIES ANY OTHER NEEDS, BED IS LOW, SRX2, CALL LIGHT IN REACH, WILL CONTINUE TO MONITOR
[2016-11-26 05:06] LABS: CALCIUM 8.3 mg/dL (8.5-10.1); CARBON DIOXIDE 26.4 mmol/L (21.0-32.0); CREATININE - SERUM 4.5 mg/dL (0.6-1.3); PHOSPHOROUS 5.5 mg/dL (2.5-4.9); POTASSIUM - SERUM 4.4 mmol/L (3.5-5.1)
[2016-11-26 05:12] LABS: BASOPHILS 0.1 % (0.0-2.0); EOSINOPHILS 4.3 % (0-7); HEMATOCRIT 28.8 % (42.0-54.0); HEMOGLOBIN 8.8 g/dL (13.5-17.5); IMMATURE GRANULOCYTES 0.1 % (0-5); LYMPHOCYTES 26.7 % (15-50); MCH 26.6 pg (26.0-34.0); MCHC 30.6 g/dL (31.0-37.0); MEAN PLATELET VOLUME 9.8 fL (7.4-10.4); MONOCYTES 12.7 % (2-11); NEUTROPHILS 56.1 % (40-80); PLATELET COUNT 219 10x3/uL (130-400); RBC 3.31 10x6/uL (4.20-6.10); RDW 18.9 % (11.5-14.5); WBC 7.2 10x3/uL (4.8-10.8)
--- NOTE | 2016-11-26 07:22 | NUR ---
AM ROUNDS - PT IN BED SLEEPING ON BACK WITH EQUAL AND NON LABORED BREATHS. RIGHT HAND SL. PT IS A LEFT ARM RESERVE. WILL CONTINUE TO MONITOR.
[2016-11-26 08:19] VITALS: BP 166/89
--- NOTE | 2016-11-26 09:16 | NUR ---
Patient Name: ODETTE OH Admission Status: Elective Accout number: [id number] Admission Date: 11-25-2016 : 1960 Admission Diagnosis: Attending: MIKEY Current LOS: 1 Anticipated DC Date: 11-26-2016 Planned Disposition: Home WITH HOME HEALTH Primary Insurance: MEDICAID [place] PLANNED EXTERNAL PROVIDER: [facility] [employer] [facility] Discharge Planning Comments: * Is the patient Alert and Oriented? Yes 0 * How many steps to enter\\exit or inside your home? 1-2 0 * PCP DR FRANKLIN [place] 0 * Pharmacy [facility] 0 * Preadmission Environment Home with Family 0 * ADLs Independent 0 * Equipment Cane 0 * Other Equipment NO MEDICAL EQUIPMENT PROVIDER PREFERENCE 0 * List name and contact numbers for known caregivers / representatives who currently or will assist patient after discharge: PAUL, BROTHER, "LOIS", COUSIN, 0 * Community resources currently utilized Home Health 0 * Please name any agencies selected above. [facility] [facility] 0 * Additional services required to return to the preadmission environment? No 0 * Can the patient safely return to the preadmission environment? Yes 0 * Has this patient been hospitalized within the prior 30 days at any hospital? Yes 0 CM MET WITH PT IN ROOM TO DISCUSS DISCHARGE PLANNING AND NEEDS. PT REPORTS LIVING AT HOME INDEPENDENTLY WITH FAMILY. PT HAS A CANE WITH NO MEDICAL EQUIPMENT PROVIDER PREFERENCE. PT HAS [facility]. PT GOES TO [facility], M/W/F, [phone], FAMILY TRANSPORTS. CM DISCUSSED AVAILABILITY OF HOME HEALTH, REHAB SERVICES AND MEDICAL EQUIPMENT. PT DENIES DISCHARGE NEEDS, ASKED CM TO ASSIST IN CALLING FAMILY. CM CALLED "LOIS", PT'S COUSING AT [phone]; PT SPOKE TO FAMILY AND REPORTED THAT FAMILY WILL PICK HIM UP FOR DISCHARGE HOME LATER THIS AFTERNOON AND IT MAY BE AFTER 5:00PM. CM CALLED [facility], , SPOKE TO LAUREN WHO WILL PUT PT BACK ON SHEDULE FOR RESUMPTION OF CARE TOMORROW. CM FAXED DISCHARGE INFORMATION TO [employer] AT [phone]. Associate Curator: Jeff Christopher
--- NOTE | 2016-11-26 12:59 | NUR ---
PT RETURNEED BACK FROM DIALYSIS VUIA WHEELCHAIR.
--- NOTE | 2016-11-26 15:39 | NUR ---
1500 - PT GIVEN D/C INFORMATION. IV REMOVED WITH CATH TIP INTACT.
--- NOTE | 2016-11-29 06:54 | DS ---
PATIENT:ODETTE OH :[birth year] MEDICAL RECORD: [id number] DISCHARGE SUMMARY ADMISSION DATE: 11/25/16 DISCHARGE DATE: 11/26/16 HISTORY OF PRESENT ILLNESS: Mr. Oh is a 56-year-old black male with end-stage renal disease, who was admitted with bleeding from his dialysis catheter in his right groin. This area was repaired by Dr. Ring and he had revision of his AV fistula and was discharged home. He apparently restarted his anticoagulants at home and re-bled and was readmitted for bleeding from his groin catheter. HOSPITAL COURSE: I discontinued his Eliquis and he will be off of this when discharged. His fistula was stable. He was taken to surgery by Dr. Ring where he had insertion of a shorter hemodialysis catheter, which we will use today. Following this, if stable, will be discharged. He was stable otherwise during this hospitalization. DISCHARGE DIAGNOSES: 1. Malfunction of dialysis access. 2. Maturing dialysis fistula. 3. End-stage renal disease. 4. Hypertension. 5. Drug abuse. 6. Poor compliance. 7. Chronic anemia. 8. Severe hypertension. PLAN: The patient will be discharged today following dialysis. He will be in [facility] on Tuesday. I will see him on rounds Tuesday in [place] [facility] and we will follow maturation of his fistula. DISCHARGE MEDICATIONS: Protonix 40 mg daily, Loniten 2.5 daily, lisinopril 20 b.i.d., clonidine 0.2 b.i.d., Coreg 25 b.i.d., Renvela 800 three tabs t.i.d., Lipitor 10 at bedtime. As stated, I have stopped his Eliquis. Amlodipine 10 mg daily. TRANSINT:[id number] Voice Confirmation ID: [id number] DOCUMENT ID: [id number] JAYDE METZGER MD at 0654 CC: [id number] DICTATION DATE: 11/26/16 0737 OPEN HEARTH LABORER: 11/27/16 0006 DIS IN 11/26/16 [facility] [address] [place] [address]
== END 2016-11-26 15:00 | disposition home health service (06) | DRG 314 ==
LOC: D.M2 02:25 → OBSVTIME 02:25 → D.M2 02:25
PROVIDERS: Internal Medicine Nephrology; Surgery; ADMIT Internal Medicine Nephrology
PROC: 5A1D60Z (ICD-10-PCS; 2016-11-24)
PROC: 06H033Z Insertion of Infusion Device into Inferior Vena Cava, Percutaneous Approach (ICD-10-PCS; 2016-11-25)
PROC: B5191ZA Fluoroscopy of Inferior Vena Cava using Low Osmolar Contrast, Guidance (ICD-10-PCS; 2016-11-25)
PROC: 02PY33Z Removal of Infusion Device from Great Vessel, Percutaneous Approach (ICD-10-PCS; principal; 2016-11-25 08:00)
DX: T82.838A Hemorrhage due to vascular prosthetic devices, implants and grafts, initial encounter (principal); N18.6 End stage renal disease; I12.0 Hypertensive chronic kidney disease with stage 5 chronic kidney disease or end stage renal disease; Y83.8 Other surgical procedures as the cause of abnormal reaction of the patient, or of later complication, without mention of misadventure at the time of the procedure; Z99.2 Dependence on renal dialysis; D64.9 Anemia, unspecified

== ENCOUNTER 2016-12-12 19:06 | Emergency (ER) | payer MEDICAID ==
[2016-11-24 10:15] VITALS: BMI 21.5
[2016-12-12 19:59] LABS: BASOPHILS 0.1 % (0-2); EOSINOPHILS 0.7 % (0-7); HEMATOCRIT 32.2 % (42.0-54.0); HEMOGLOBIN 10.1 g/dL (13.5-17.5); IMMATURE GRANULOCYTES 0.3 % (0-5); LYMPHOCYTES 12.6 % (15-50); MCHC 31.4 g/dL (31.0-37.0); MCV 86.1 fL (80.0-100.0); MEAN PLATELET VOLUME 10.2 fL (7.4-10.4); MONOCYTES 8.8 % (2-11); NEUTROPHILS 77.5 % (40-80); RBC 3.74 10x6/uL (4.20-6.10); RDW 18.3 % (11.5-14.5); WBC 11.5 10x3/uL (4.8-10.8)
[2016-12-12 20:00] LABS: PLATELET COUNT 111 10x3/uL (130-400)
[2016-12-12 20:16] LABS: ALBUMIN 2.8 g/dL (3.4-5.0); ALKALINE PHOSPHATASE 95 U/L (46-116); ALT (SGPT) 21 U/L (10-68); BILIRUBIN - TOTAL 0.71 mg/dL (0.2-1.3); CALC OSMOLALITY 289 mosm/kg (275-300); CALCIUM 8.4 mg/dL (8.5-10.1); CARBON DIOXIDE 23.3 mmol/L (21.0-32.0); CHLORIDE - SERUM 103 mmol/L (98-107); CREATININE - SERUM 5.6 mg/dL (0.6-1.3); GLUCOSE 92 mg/dL (74-106); POTASSIUM - SERUM 3.9 mmol/L (3.5-5.1); PROTEIN - SERUM 7.7 g/dL (6.4-8.2); SODIUM 138 mmol/L (136-145); UREA NITROGEN 53 mg/dL (7-18); eGFR NON AFRICAN AMERICAN 11 mL/min (90-120)
[2016-12-12 20:24] LABS: CHOL - HDL RATIO 4.4 ratio (2.3-4.9); CHOLESTEROL, TOTAL 161 mg/dL (0-200); CKMB 0.6 U/L (0.0-3.6); CREATINE KINASE 32 UL (21-232); HDL CHOLESTEROL 37 mg/dL (32-96); LDL CHOLESTEROL 108 mg/dL (0-100); LDL-HDL RATIO 2.9 ratio (1.5-3.5); TRIGLYCERIDE 84 mg/dL (30-200); TROPONIN-I 0.055 ng/mL (0.000-0.060)
== END 2016-12-12 21:30 | disposition home or self-care (01) ==
LOC: D.ER 19:06
PROVIDERS: Family Medicine
DX: R07.89 Other chest pain (principal); N18.9 Chronic kidney disease, unspecified; I50.9 Heart failure, unspecified; Z99.2 Dependence on renal dialysis

== ENCOUNTER 2017-07-19 17:02 | Observation (INO) | payer MEDICAID ==
[~2017-07-19] VITALS: Ht 177.8 cm; Wt 86.5 kg
[2017-07-19 17:48] LABS: BASOPHILS 0.2 % (0-2); EOSINOPHILS 1.3 % (0-7); HEMATOCRIT 26.9 % (42.0-54.0); HEMOGLOBIN 8.7 g/dL (13.5-17.5); IMMATURE GRANULOCYTES 0.2 % (0-5); LYMPHOCYTES 20.8 % (15-50); MCH 30.7 pg (26.0-34.0); MCHC 32.3 g/dL (31.0-37.0); MCV 95.1 fL (80.0-100.0); MEAN PLATELET VOLUME 10.3 fL (7.4-10.4); MONOCYTES 7.1 % (2-11); NEUTROPHILS 70.4 % (40-80); RBC 2.83 10x6/uL (4.20-6.10); RDW 14.1 % (11.5-14.5); WBC 5.3 10x3/uL (4.8-10.8)
[2017-07-19 17:49] LABS: PLATELET COUNT 174 10x3/uL (130-400)
[2017-07-19 18:01] LABS: INR 1.2 (0.85-1.17); PROTIME 14.8 SECONDS (11.6-15.0)
[2017-07-19 18:08] LABS: ALBUMIN 2.8 g/dL (3.4-5.0); ANION GAP 16.9 mmol/L (8-16); BILIRUBIN - TOTAL 0.46 mg/dL (0.2-1.3); CALCIUM 7.2 mg/dL (8.5-10.1); CARBON DIOXIDE 18.5 mmol/L (21.0-32.0); CREATININE - SERUM 7.9 mg/dL (0.6-1.3); POTASSIUM - SERUM 5.4 mmol/L (3.5-5.1); PROTEIN - SERUM 7.5 g/dL (6.4-8.2)
[2017-07-20] VITALS (7 sets, daily range): BP systolic 91–197; BP diastolic 53–109; Ht 177.8 cm; Wt 86.5 kg
--- NOTE | 2017-07-20 03:51 | NUR ---
PT IN BED RESTING. EVEN AND UNLABORED RESPIRATIONS NOTED. WILL CONTINUE TO MONITOR.
--- NOTE | 2017-07-20 07:30 | NUR ---
AM ROUNDS COMPLETED. INTRODUCED MYSELF TO PT PRIMARY RN FOR TODAYS SHIFT. PT A&O SITTING UP IN BED RESTING QUIETLY. PT HAS NS @50ML/HR INFUSING VIA R.CHEST IP WITH DRSG ADHERED TO SKIN AND BIOPATCH IN PLACE WITH SWAB CAPS IN USE. PT STATES HE SLEPT "ALRIGHT" BUT IS IN CONSTANT LOWER BACK AND UPPER ABDOMINAL PAIN, NO PAIN MEDICATIONS ORDERED. WILL DISCUSS WITH PRIMARY AND CPOC.
--- NOTE | 2017-07-20 10:37 | NUR ---
LAB DRAW DRUG SCREEN COMPLETED VIA R.CHEST INFUSAPORT. PT SITTING UP IN BED AND HAS SLIGHTLY LABORED BREATHING KEEPS HAVING TO CATCH HIS BREATH WHILE SITTING STILL IN BED. O2 SAT 98% ON RA. OBTAINED ORDER FOR NC @2L FOR COMFORT. PT VOICED THANKS AND STATED IT HELPED A LITTLE. PT STATES HE HAS NOT INTENTIONALLY BEEN INCOMPLIANT WITH DIALYSIS AND WILL GO TODAY BUT HE HAD RECENT FAMILY ISSUES IN FAMILY AND LOSS OF CUSTODY OF CHILDREN AND ETC SO HE WAS WAY TOO OCCUPIED. WILL CHECK FOR TODAYS ORDERS. PT DENIES ANY FURTHER NEEDS AT THIS TIME. CL IN REACH, BED IN LOWEST, SIDE RAILS X2. WILL CPOC.
--- NOTE | 2017-07-20 12:36 | NUR ---
PRN CLONIDINE GIVEN FOR SBP ABOVE 180. WILL CTM.
--- NOTE | 2017-07-20 13:22 | NUR ---
DIALYSIS CALLED FOR PT. BROUGHT PT DOWN VIA BED. PT DENIES ANY FURTHER NEEDS AT THIS TIME. WILL CPOC.
--- NOTE | 2017-07-20 14:49 | NUR ---
PT DOWN IN DIALYSIS AND DOING WELL PER DIALYSIS NURSE. BP STABLE. NO CURRENT NEEDS. WILL CPOC.
--- NOTE | 2017-07-20 16:30 | NUR ---
PT BACK FROM DIALYSIS AND 4L WAS REMOVED WITHOUT ANY S/S OF DISTRESS OR ISSUES. PTS BP MUCH BETTER AND DOWN TO 139/82. PT SITTING UP IN BED AND DENIES ANY CURRENT NEEDS. CL IN REACH. WILL CPOC.
[2017-07-20] MEDS ORDERED: XANAX0.5 MG PO (17:54)
--- NOTE | 2017-07-20 19:33 | NUR ---
PT IN BED RESTING QUIETLY. BED IN LOW POSITION, CALL LIGHT WITHIN REACH. WILL CTM.
[2017-07-21 00:07] VITALS: BP 141/73
[2017-07-21 05:13] VITALS: BP 125/69
[2017-07-21 06:47] LABS: ANION GAP 15.8 mmol/L (8-16); CARBON DIOXIDE 21.4 mmol/L (21.0-32.0); CREATININE - SERUM 6.3 mg/dL (0.6-1.3); POTASSIUM - SERUM 4.2 mmol/L (3.5-5.1)
[2017-07-21 07:28] LABS: BASOPHILS 0.2 % (0-2); EOSINOPHILS 1.1 % (0-7); HEMATOCRIT 24.6 % (42.0-54.0); HEMOGLOBIN 8.3 g/dL (13.5-17.5); IMMATURE GRANULOCYTES 0.2 % (0-5); LYMPHOCYTES 17.1 % (15-50); MCH 31.6 pg (26.0-34.0); MCHC 33.7 g/dL (31.0-37.0); MCV 93.5 fL (80.0-100.0); MEAN PLATELET VOLUME 10.6 fL (7.4-10.4); MONOCYTES 8.1 % (2-11); NEUTROPHILS 73.3 % (40-80); PLATELET COUNT 206 10x3/uL (130-400); RBC 2.63 10x6/uL (4.20-6.10); RDW 13.9 % (11.5-14.5); WBC 5.7 10x3/uL (4.8-10.8)
--- NOTE | 2017-07-21 07:59 | NUR ---
AM ROUNDS COMPLETED. INTRODUCED MYSELF TO PT PRIMARY RN FOR TODAYS SHIFT. PT IS REQUESTING TO GO HOME AND DISCUSSED WITH HIM DISCHARGE. PT WILL NEED HIS PROCRIT INJ PRIOR TO D/C BUT THEN CAN GO AND CONTINUE DIALYSIS AT CENTER SCHEDULED CHAIR TIME TUESDAY. PT DENIES ANY FURTHER NEEDS WILL BEGIN DISCHARGE WORK-UP.
[2017-07-21 08:40] VITALS: BP 131/67
--- NOTE | 2017-07-21 11:04 | NUR ---
DISCHARGE TEACHING PROVIDED AND PAPERS SIGNED. PT VERBALIZED UNDERSTANDING AND DENIES ANY QUESTIONS OR CONCERNS. D/C PTS R.CHEST INFUSAPORT AND NEEDLE FULLY INTACT. NO ISSUES. PT COLLECTING BELONGINGS AND GETTING DRESSED NOW. CALLED FOR HIS TRANSPORTATION. NO FURTHER NEEDS.
--- NOTE | 2017-07-21 12:23 | NUR ---
PT READY FOR DISCHARGE. LEAVING NOW.
--- NOTE | 2017-07-21 16:57 | NUR ---
Patient Name: ODETTE OH Admission Status: ER Accout number: [id number] Admission Date: 07-19-2017 : 1960 Admission Diagnosis: Attending: Tyrese Alcantar Current LOS: 2 Anticipated DC Date: 07-21-2017 Planned Disposition: Home Primary Insurance: MEDICAID [place] LATE ENTRY: Discharge Planning Comments: * Is the patient Alert and Oriented? Yes 0 * How many steps to enter\exit or inside your home? NONE 0 * PCP DR. FRANKLIN [place] 0 * Pharmacy [facility] IN [place] OR [facility] MAIL ORDER 0 * Preadmission Environment Home with Family 0 * ADLs Independent 0 * Equipment Cane 0 * Other Equipment NO MEDICAL EQUIPMENT PROVIDER PREFERENCE 0 * List name and contact numbers for known caregivers / representatives who currently or will assist patient after discharge: [place] OH DTR, PAUL OH, BROTHER, 0 * Community resources currently utilized Other 0 * Please name any agencies selected above. OUTPATIENT DIALYSIS, [facility], MWF, 1030AM, [employer] [employer] 0 * Additional services required to return to the preadmission environment? No 0 * Can the patient safely return to the preadmission environment? Yes 0 * Has this patient been hospitalized within the prior 30 days at any hospital? Yes 0 CM MET WITH PT IN ROOM TO DISCUSS DISCHARGE PLANNING AND NEEDS. PT REPORTS LIVING AT HOME INDEPENDENTLY WITH FAMILY. PT HAS CANE WITH NO MEDICAL EQUIPMENT PROVIDER AND NO OUTSIDE SERVICES ASSISTING IN THE HOME. PT GOES TO DIALYSIS IN [place]. CM DISCUSSED AVAILABILITY OF HOME HEALTH, REHAB SERVICES AND MEDICAL EQUIPMENT. PT DENIES DISCHARGE NEEDS, REPORTS HIS BROTHER IS ON THE WAY TO PICK HER UP FOR DISCHARGE HOME TODAY. Bus Van Driver: Jeff Christopher
--- NOTE | 2017-07-22 07:08 | DS ---
PATIENT:ODETTE OH :[birth year] MEDICAL RECORD: [id number] DISCHARGE SUMMARY ADMISSION DATE: 07/19/17 DISCHARGE DATE: 07/21/17 HISTORY OF PRESENT ILLNESS: Mr. Oh is a 56-year-old black male with end-stage renal disease, chronic dialysis, chronic active drug use, chronic active noncompliance was discharged from here at [facility], has not been back to dialysis prior to this admission. It has been unclear where he has been for the last 2 weeks. States not to have had dialysis or taken his medicines. Found to be having accelerated hypertension in the Emergency Room along with the need for dialysis and admitted for the above. HOSPITAL COURSE: The patient was emergently dialyzed along with resumption of his home medications. The following day, he was back to baseline requesting discharge. Due to lack of Epogen, his hemoglobin has continued to drop. He was given a shot of Epogen prior to his discharge. His home meds were resumed. He has a dialysis physician awaiting him in [place]. His last lab was back to baseline. DISCHARGE DIAGNOSES: 1. Accelerated hypertension. 2. Severe noncompliance. 3. Active drug use. 4. End-stage renal disease, chronic dialysis. 5. Chronic anemia. PLAN: The patient will be discharged today. He should be back to [place] dialysis tomorrow. He was restarted on all of his home medications. We will see him weekly if he is in [place]. I have reviewed the consequences of his behavior with him. TRANSINT:[id number] Voice Confirmation ID: [id number] DOCUMENT ID: [id number] JAYDE METZGER MD at 0708 CC: [id number] DICTATION DATE: 07/21/17 0753 CLAIM APPROVER: 07/21/17 1307 DIS IN 07/21/17 [id number] [place] [address]
== END 2017-07-21 12:24 | disposition home or self-care (01) ==
LOC: D.ER 17:02 → OBSVTIME 19:32 → D.M2 19:32 → D.SDCHOLD 19:32 → D.M2 21:40
PROVIDERS: Internal Medicine Nephrology; Nurse Practitioner Family; ADMIT Internal Medicine Nephrology
DX: E87.5 Hyperkalemia (principal); I13.2 Hypertensive heart and chronic kidney disease with heart failure and with stage 5 chronic kidney disease, or end stage renal disease; N18.6 End stage renal disease; I50.9 Heart failure, unspecified; F19.10 Other psychoactive substance abuse, uncomplicated; Z99.2 Dependence on renal dialysis; Z91.15 Patient's noncompliance with renal dialysis; D63.1 Anemia in chronic kidney disease; B19.20 Unspecified viral hepatitis C without hepatic coma; E83.39 Other disorders of phosphorus metabolism

== ENCOUNTER 2017-10-04 00:29 | Inpatient (IN) | payer MEDICAID ==
[2017-10-04] VITALS (61 sets, daily range): BP systolic 133–172; BP diastolic 72–113; BMI 24.5; BMI 24.4
[~2017-10-04] VITALS: Ht 177.8 cm; Wt 74.4 kg
--- NOTE | ~2017-10-04 | DS ---
PATIENT:ODETTE OH :[birth year] MEDICAL RECORD: [id number] DISCHARGE SUMMARY ADMISSION DATE: 10/04/17 DISCHARGE DATE: 10/10/17 HISTORY OF PRESENT ILLNESS: Mr. Oh is a 57-year-old black male with severe treatment and medication noncompliance scheduled to dialyze at [facility] with end-stage renal disease due to hypertension, but he is severely noncompliant, missing dialysis weeks at that time, reappeared here in the Emergency Room with volume overload and uremic symptoms and admitted for the above. HOSPITAL COURSE: The patient was emergently dialyzed, restarted on his antihypertensives since his blood pressure was elevated and he quickly came improved. He due to his nausea and vomiting was treated symptomatically, but since he had a cholecystectomy, had a gastric emptying scan that was positive for gastroparesis and was treated with Reglan therapy. He did require recurrent transfusion, restarting of his antihypertensive meds, had some intermittent bronchitis that was treated with oral antibiotics and also received intermittent transfusion with resumption of his erythropoietin. At the time of discharge, he was back to baseline. Drug screen initially was positive for opioids, but negative for cocaine. DISCHARGE DIAGNOSES: 1. Uremia with missing dialysis. 2. Gastroparesis with recurrent nausea and vomiting. 3. Severe noncompliance. 4. Hypertension. 5. Anemia requiring transfusion and erythropoietin. 6. Accelerated hypertension with poor medication compliance. PLAN: The patient will be discharged today following dialysis. He will receive 1 unit of packed cells. He will resume his [place] dialysis. I did discuss with him about his drug use. DISCHARGE MEDICATIONS: Will be Reglan 5 mg a.c. and at bedtime, amlodipine 10 b.i.d., Apresoline 100 mg b.i.d., Carafate 1 g a.c. and at bedtime, Nephro-Bettie 1 daily, Renvela 800 t.i.d., and Pepcid 20 mg b.i.d. He will receive Epogen in the dialysis unit, clonidine 0.2 t.i.d., and Catapres patch 0.3 daily. TRANSINT:[id number] Voice Confirmation ID: [id number] DOCUMENT ID: [id number] CC: [facility]. JAYDE METZGER MD at 0640 CC: [id number] DICTATION DATE: 10/10/17 0638 VBA DEVELOPER: 10/10/17 1014 DIS IN 10/10/17 [facility] [address] [place] [id number]
[~2017-10-04 00:29] MED LIST changes: +XANAX0.5 MG PO
[2017-10-04] MEDS ORDERED: ULTRACET TABLET1 TAB PO (00:55)
[2017-10-04 04:49] LABS: ALBUMIN 3.1 g/dL (3.4-5.0); ANION GAP 17.9 mmol/L (8-16); BILIRUBIN - TOTAL 1.33 mg/dL (0.2-1.3); CALCIUM 8.2 mg/dL (8.5-10.1); CARBON DIOXIDE 23.6 mmol/L (21.0-32.0); CREATININE - SERUM 7.3 mg/dL (0.6-1.3); MAGNESIUM - SERUM 2.2 mg/dL (1.8-2.4); PHOSPHOROUS 6.3 mg/dL (2.5-4.9); POTASSIUM - SERUM 4.5 mmol/L (3.5-5.1); PROTEIN - SERUM 8.1 g/dL (6.4-8.2)
[2017-10-04 05:44] LABS: HEMATOCRIT 21.2 % (42.0-54.0); LYMPHOCYTES 17.4 % (15-50); MCH 29.5 pg (26.0-34.0); MCHC 32.5 g/dL (31.0-37.0); MCV 90.6 fL (80.0-100.0); MEAN PLATELET VOLUME 9.8 fL (7.4-10.4); NEUTROPHILS 72.9 % (40-80); PLATELET COUNT 204 10x3/uL (130-400); RBC 2.34 10x6/uL (4.20-6.10); RDW 17.7 % (11.5-14.5); WBC 8.7 10x3/uL (4.8-10.8)
[2017-10-04 05:45] LABS: HEMOGLOBIN 6.9 g/dL (13.5-17.5)
[2017-10-04 08:36] LABS: UDS - AMPHET NEGATIVE QUAL (NEGATIVE); UDS - BARB NEGATIVE QUAL (NEGATIVE); UDS - BENZO NEGATIVE QUAL (NEGATIVE); UDS - COCAINE NEGATIVE QUAL (NEGATIVE); UDS - OPIATE POSITIVE QUAL (NEGATIVE); UDS - PCP NEGATIVE QUAL (NEGATIVE); UDS - THC NEGATIVE QUAL (NEGATIVE)
[2017-10-04 09:30] LABS: AMYLASE - SERUM 85 U/L (25-115); LIPASE 111 U/L (73-393)
[2017-10-04 09:32] LABS: % SATURATION 16 % (15-55); IRON 39 ug/dl (35-150); TOTAL IRON BIND CAPACITY 236 ug/dl (260-445); UNSAT IRON BIND CAPACITY 197 ug/dl (150-375)
[2017-10-05] VITALS (13 sets, daily range): BP systolic 138–165; BP diastolic 82–104; Ht 177.8 cm; Wt 74.4 kg
[2017-10-05 06:34] LABS: BASOPHILS 0 % (0-2); EOSINOPHILS 1.2 % (0-7); HEMATOCRIT 20.6 % (42.0-54.0); IMMATURE GRANULOCYTES 0.3 % (0-5); LYMPHOCYTES 18.1 % (15-50); MCH 27.4 pg (26.0-34.0); MCHC 30.6 g/dL (31.0-37.0); MCV 89.6 fL (80.0-100.0); MEAN PLATELET VOLUME 9.5 fL (7.4-10.4); MONOCYTES 8.2 % (2-11); NEUTROPHILS 72.2 % (40-80); PLATELET COUNT 178 10x3/uL (130-400); RDW 17.1 % (11.5-14.5)
[2017-10-05 06:47] LABS: HEMOGLOBIN 6.3 g/dL (13.5-17.5)
[2017-10-05 07:14] LABS: ALBUMIN 2.6 g/dL (3.4-5.0); ANION GAP 15.1 mmol/L (8-16); BILIRUBIN - TOTAL 0.64 mg/dL (0.2-1.3); CALCIUM 7.6 mg/dL (8.5-10.1); CARBON DIOXIDE 26.2 mmol/L (21.0-32.0); CREATININE - SERUM 5.2 mg/dL (0.6-1.3); PHOSPHOROUS 4.6 mg/dL (2.5-4.9); POTASSIUM - SERUM 4.3 mmol/L (3.5-5.1); PROTEIN - SERUM 7.2 g/dL (6.4-8.2)
[2017-10-05 08:21] LABS: FOLATE (FOLIC ACID) - SERUM 11.4 ng/mL (>3.0)
[2017-10-06 04:00] VITALS: BP 164/93
[2017-10-06 06:04] LABS: BASOPHILS 0 % (0-2); EOSINOPHILS 0.9 % (0-7); HEMATOCRIT 21.5 % (42.0-54.0); IMMATURE GRANULOCYTES 0.2 % (0-5); LYMPHOCYTES 17.9 % (15-50); MCH 27.6 pg (26.0-34.0); MCHC 30.7 g/dL (31.0-37.0); MONOCYTES 10.1 % (2-11); NEUTROPHILS 70.9 % (40-80); PLATELET COUNT 191 10x3/uL (130-400); RBC 2.39 10x6/uL (4.20-6.10); WBC 5.9 10x3/uL (4.8-10.8)
[2017-10-06 06:41] LABS: HEMOGLOBIN 6.6 g/dL (13.5-17.5)
[2017-10-06 07:22] LABS: CALCIUM 7.5 mg/dL (8.5-10.1); CARBON DIOXIDE 25.3 mmol/L (21.0-32.0); CREATININE - SERUM 6.3 mg/dL (0.6-1.3); PHOSPHOROUS 4.8 mg/dL (2.5-4.9); POTASSIUM - SERUM 4.3 mmol/L (3.5-5.1)
[2017-10-06 07:44] VITALS: BP 160/86
[2017-10-06 15:17] VITALS: BP 182/99
[2017-10-06 20:00] VITALS: BP 166/82
[2017-10-07 04:00] VITALS: BP 170/84
[2017-10-07 05:17] LABS: BASOPHILS 0 % (0-2); EOSINOPHILS 0.7 % (0-7); HEMATOCRIT 23.8 % (42.0-54.0); IMMATURE GRANULOCYTES 0.3 % (0-5); LYMPHOCYTES 15.7 % (15-50); MCH 28.3 pg (26.0-34.0); MCHC 31.5 g/dL (31.0-37.0); MCV 89.8 fL (80.0-100.0); MEAN PLATELET VOLUME 9.9 fL (7.4-10.4); MONOCYTES 8.2 % (2-11); NEUTROPHILS 75.1 % (40-80); PLATELET COUNT 198 10x3/uL (130-400); RBC 2.65 10x6/uL (4.20-6.10); RDW 16.6 % (11.5-14.5); WBC 5.9 10x3/uL (4.8-10.8)
[2017-10-07 05:19] LABS: HEMOGLOBIN 7.5 g/dL (13.5-17.5)
[2017-10-07 05:22] LABS: ANION GAP 14.5 mmol/L (8-16); CALCIUM 8.3 mg/dL (8.5-10.1); CARBON DIOXIDE 27.5 mmol/L (21.0-32.0); PHOSPHOROUS 4.4 mg/dL (2.5-4.9)
[2017-10-07 05:25] LABS: CREATININE - SERUM 4.6 mg/dL (0.6-1.3)
[2017-10-07 07:28] VITALS: BP 160/81
[2017-10-07 11:27] VITALS: BP 137/74
[2017-10-07 15:00] VITALS: BP 145/77
[2017-10-07 20:42] VITALS: BP 158/78
[2017-10-08 01:43] VITALS: BP 94/74
[2017-10-08 03:59] LABS: BASOPHILS 0 % (0-2); HEMATOCRIT 23.6 % (42.0-54.0); IMMATURE GRANULOCYTES 0.3 % (0-5); LYMPHOCYTES 19.4 % (15-50); MCH 28.4 pg (26.0-34.0); MCHC 31.8 g/dL (31.0-37.0); MCV 89.4 fL (80.0-100.0); MEAN PLATELET VOLUME 9.9 fL (7.4-10.4); MONOCYTES 10.4 % (2-11); NEUTROPHILS 68.9 % (40-80); PLATELET COUNT 201 10x3/uL (130-400); RBC 2.64 10x6/uL (4.20-6.10); RDW 16.8 % (11.5-14.5); WBC 6.3 10x3/uL (4.8-10.8)
[2017-10-08 04:01] LABS: HEMOGLOBIN 7.5 g/dL (13.5-17.5)
[2017-10-08 04:13] LABS: ANION GAP 14.6 mmol/L (8-16); CALCIUM 8.3 mg/dL (8.5-10.1); CARBON DIOXIDE 25.6 mmol/L (21.0-32.0); CREATININE - SERUM 5.7 mg/dL (0.6-1.3); PHOSPHOROUS 4.4 mg/dL (2.5-4.9); POTASSIUM - SERUM 4.2 mmol/L (3.5-5.1)
[2017-10-08 05:10] VITALS: BP 127/82
[2017-10-08 07:54] VITALS: BP 144/80
[2017-10-08 08:16] VITALS: BP 138/79
[2017-10-08 15:33] VITALS: BP 121/79
[2017-10-08 22:15] VITALS: BP 136/83
[2017-10-09 01:30] VITALS: BP 126/76
[2017-10-09 06:20] VITALS: BP 159/76
[2017-10-09 08:40] VITALS: BP 116/77
[2017-10-09 12:06] VITALS: BP 120/72
[2017-10-09 16:29] VITALS: BP 103/69
[2017-10-09 20:00] VITALS: BP 144/78
[2017-10-10 04:00] VITALS: BP 143/76
[2017-10-10 07:48] VITALS: BP 150/77
[2017-10-10] MEDS ORDERED: KEFLEX500 MG PO (10:54)
[2017-10-10] MEDS ORDERED: CARAFATE1 G/10 ML PO (10:54)
== END 2017-10-10 16:15 | disposition home or self-care (01) | DRG 291 ==
LOC: D.CVICU 00:29 → D.M2 00:46 → D.CVICU 00:46 → D.M2 10-05 12:56
PROVIDERS: Emergency Medicine; Internal Medicine Nephrology
DX: I13.2 Hypertensive heart and chronic kidney disease with heart failure and with stage 5 chronic kidney disease, or end stage renal disease (principal); N18.6 End stage renal disease; I16.9 Hypertensive crisis, unspecified; I50.9 Heart failure, unspecified; I25.10 Atherosclerotic heart disease of native coronary artery without angina pectoris; E87.5 Hyperkalemia; K31.84 Gastroparesis; D63.1 Anemia in chronic kidney disease; Z91.15 Patient's noncompliance with renal dialysis

== ENCOUNTER 2017-10-16 21:02 | Inpatient (IN) | payer MEDICAID ==
[~2017-10-16] VITALS: Ht 177.8 cm; Wt 70.8 kg
[~2017-10-16 21:02] MED LIST changes: +CARAFATE1 G/10 ML PO; +KEFLEX500 MG PO; +ULTRACET TABLET1 TAB PO
[2017-10-17 06:00] VITALS: BP 169/100
[2017-10-17 12:04] VITALS: BP 171/98
[2017-10-17 12:37] VITALS: BMI 24.3
[2017-10-17 16:27] VITALS: BP 164/78
[2017-10-17 16:42] LABS: ALBUMIN 2.7 g/dL (3.4-5.0); ANION GAP 18.3 mmol/L (8-16); BILIRUBIN - TOTAL 0.87 mg/dL (0.2-1.3); CALCIUM 7.3 mg/dL (8.5-10.1); CARBON DIOXIDE 20.6 mmol/L (21.0-32.0); CREATININE - SERUM 8.4 mg/dL (0.6-1.3); POTASSIUM - SERUM 3.9 mmol/L (3.5-5.1); PROTEIN - SERUM 7.6 g/dL (6.4-8.2)
[2017-10-17 17:47] LABS: BASOPHILS 0 % (0-2); EOSINOPHILS 0.7 % (0-7); HEMATOCRIT 23.7 % (42.0-54.0); HEMOGLOBIN 7.8 g/dL (13.5-17.5); IMMATURE GRANULOCYTES 0.2 % (0-5); LYMPHOCYTES 20.7 % (15-50); MCH 29.3 pg (26.0-34.0); MCHC 32.9 g/dL (31.0-37.0); MCV 89.1 fL (80.0-100.0); MEAN PLATELET VOLUME 10.6 fL (7.4-10.4); MONOCYTES 7.1 % (2-11); NEUTROPHILS 71.3 % (40-80); PLATELET COUNT 123 10x3/uL (130-400); RBC 2.66 10x6/uL (4.20-6.10); RDW 16.6 % (11.5-14.5); WBC 5.4 10x3/uL (4.8-10.8)
[2017-10-18] VITALS: BP 195/106
[2017-10-18 05:47] VITALS: Ht 177.8 cm; Wt 70.8 kg
[2017-10-18 05:57] VITALS: BP 183/103
[2017-10-18 06:27] LABS: BASOPHILS 0 % (0-2); EOSINOPHILS 0.7 % (0-7); IMMATURE GRANULOCYTES 0.4 % (0-5); LYMPHOCYTES 15.9 % (15-50); MCH 28.1 pg (26.0-34.0); MCV 87.7 fL (80.0-100.0); MEAN PLATELET VOLUME 10.8 fL (7.4-10.4); MONOCYTES 7.5 % (2-11); NEUTROPHILS 75.5 % (40-80); PLATELET COUNT 142 10x3/uL (130-400); RBC 2.85 10x6/uL (4.20-6.10); WBC 5.4 10x3/uL (4.8-10.8)
[2017-10-18 06:43] LABS: ANION GAP 17.2 mmol/L (8-16); CALCIUM 7.2 mg/dL (8.5-10.1); CARBON DIOXIDE 25.2 mmol/L (21.0-32.0); POTASSIUM - SERUM 3.4 mmol/L (3.5-5.1)
[2017-10-18 06:46] LABS: CREATININE - SERUM 5.6 mg/dL (0.6-1.3)
[2017-10-18 07:07] LABS: AMYLASE - SERUM 95 U/L (25-115); LIPASE 113 U/L (73-393)
[2017-10-18 09:37] VITALS: BP 169/86
[2017-10-18 11:50] VITALS: BP 158/883
[2017-10-18 19:58] LABS: ALBUMIN 2.6 g/dL (3.4-5.0); ANION GAP 16.6 mmol/L (8-16); BILIRUBIN - TOTAL 0.6 mg/dL (0.2-1.3); CALCIUM 7.1 mg/dL (8.5-10.1); CARBON DIOXIDE 25.6 mmol/L (21.0-32.0); CHOL - HDL RATIO 5.2 ratio (2.3-4.9); LDL-HDL RATIO 3.3 ratio (1.5-3.5); POTASSIUM - SERUM 3.2 mmol/L (3.5-5.1); PROTEIN - SERUM 7.5 g/dL (6.4-8.2)
[2017-10-18 20:00] VITALS: BP 144/72
[2017-10-18 20:01] LABS: CREATININE - SERUM 3.8 mg/dL (0.6-1.3)
[2017-10-19 04:00] VITALS: BP 149/83
[2017-10-19 06:44] LABS: BASOPHILS 0.2 % (0-2); EOSINOPHILS 0.7 % (0-7); HEMOGLOBIN 8.4 g/dL (13.5-17.5); IMMATURE GRANULOCYTES 0.2 % (0-5); INR 1.12 (0.85-1.17); LYMPHOCYTES 18.1 % (15-50); MCHC 31.1 g/dL (31.0-37.0); MEAN PLATELET VOLUME 10.5 fL (7.4-10.4); MONOCYTES 9.9 % (2-11); NEUTROPHILS 70.9 % (40-80); PLATELET COUNT 170 10x3/uL (130-400); RDW 16.1 % (11.5-14.5); WBC 5.5 10x3/uL (4.8-10.8)
[2017-10-19 06:59] LABS: ALBUMIN 2.6 g/dL (3.4-5.0); ANION GAP 15.7 mmol/L (8-16); BILIRUBIN - TOTAL 0.64 mg/dL (0.2-1.3); CALCIUM 8.1 mg/dL (8.5-10.1); CARBON DIOXIDE 26.9 mmol/L (21.0-32.0); CREATININE - SERUM 4.6 mg/dL (0.6-1.3); PHOSPHOROUS 4.8 mg/dL (2.5-4.9); POTASSIUM - SERUM 3.6 mmol/L (3.5-5.1); PROTEIN - SERUM 7.5 g/dL (6.4-8.2)
[2017-10-19 08:37] VITALS: BP 150/78
[2017-10-19 16:35] VITALS: BP 140/70
[2017-10-19 21:41] VITALS: BP 148/69
[2017-10-20 00:41] VITALS: BP 145/72
[2017-10-20 05:32] VITALS: BP 134/80
[2017-10-20 06:36] LABS: BASOPHILS 0 % (0-2); EOSINOPHILS 0.8 % (0-7); HEMATOCRIT 26.6 % (42.0-54.0); HEMOGLOBIN 8.2 g/dL (13.5-17.5); IMMATURE GRANULOCYTES 0.3 % (0-5); LYMPHOCYTES 15.6 % (15-50); MCH 28.1 pg (26.0-34.0); MCHC 30.8 g/dL (31.0-37.0); MCV 91.1 fL (80.0-100.0); MEAN PLATELET VOLUME 10.5 fL (7.4-10.4); MONOCYTES 8.1 % (2-11); NEUTROPHILS 75.2 % (40-80); PLATELET COUNT 177 10x3/uL (130-400); RBC 2.92 10x6/uL (4.20-6.10); RDW 16.2 % (11.5-14.5)
[2017-10-20 06:50] LABS: ANION GAP 14.9 mmol/L (8-16); CARBON DIOXIDE 28.5 mmol/L (21.0-32.0); CREATININE - SERUM 4.2 mg/dL (0.6-1.3); PHOSPHOROUS 4.8 mg/dL (2.5-4.9); POTASSIUM - SERUM 3.4 mmol/L (3.5-5.1)
[2017-10-20 07:33] VITALS: BP 145/77
[2017-10-20 11:31] VITALS: BP 138/80
[2017-10-20 13:17] LABS: HEPATITIS C ANTIBODY >11.0 (0.0-0.9)
[2017-10-20 15:56] VITALS: BP 141/73
[2017-10-20 20:00] VITALS: BP 151/79
[2017-10-21] VITALS: BP 152/76
[2017-10-21 05:49] LABS: BASOPHILS 0 % (0-2); EOSINOPHILS 1.2 % (0-7); HEMATOCRIT 28.5 % (42.0-54.0); IMMATURE GRANULOCYTES 0.4 % (0-5); LYMPHOCYTES 20.2 % (15-50); MCH 28.3 pg (26.0-34.0); MCHC 31.6 g/dL (31.0-37.0); MCV 89.6 fL (80.0-100.0); MEAN PLATELET VOLUME 10.3 fL (7.4-10.4); MONOCYTES 7.5 % (2-11); NEUTROPHILS 70.7 % (40-80); PLATELET COUNT 204 10x3/uL (130-400); RBC 3.18 10x6/uL (4.20-6.10); RDW 15.8 % (11.5-14.5); WBC 6.7 10x3/uL (4.8-10.8)
[2017-10-21 06:17] LABS: CALCIUM 8.3 mg/dL (8.5-10.1); CARBON DIOXIDE 27.5 mmol/L (21.0-32.0); PHOSPHOROUS 4.9 mg/dL (2.5-4.9); POTASSIUM - SERUM 3.5 mmol/L (3.5-5.1)
[2017-10-21 06:21] LABS: CREATININE - SERUM 5.4 mg/dL (0.6-1.3)
[2017-10-21 09:51] VITALS: BP 149/76
== END 2017-10-21 15:43 | disposition home or self-care (01) | DRG 291 ==
LOC: OBSVTIME → UNDOADMOB 21:02 → D.SDCHOLD 21:02 → OBSVTIME 21:05 → D.M2 23:56 → OBSVTIME 23:56 → D.M2 23:56
PROVIDERS: Family Medicine; Internal Medicine; Internal Medicine Gastroenterology; Internal Medicine Nephrology
PROC: 0DB68ZX Excision of Stomach, Via Natural or Artificial Opening Endoscopic, Diagnostic (ICD-10-PCS; 2017-10-19)
PROC: 0DB58ZX Excision of Esophagus, Via Natural or Artificial Opening Endoscopic, Diagnostic (ICD-10-PCS; 2017-10-19)
PROC: 0DBP8ZX Excision of Rectum, Via Natural or Artificial Opening Endoscopic, Diagnostic (ICD-10-PCS; 2017-10-19)
PROC: 0DB98ZX Excision of Duodenum, Via Natural or Artificial Opening Endoscopic, Diagnostic (ICD-10-PCS; principal; 2017-10-19 16:30)
DX: I13.2 Hypertensive heart and chronic kidney disease with heart failure and with stage 5 chronic kidney disease, or end stage renal disease (principal); N18.6 End stage renal disease; K22.10 Ulcer of esophagus without bleeding; I50.9 Heart failure, unspecified; Z99.2 Dependence on renal dialysis; Z91.15 Patient's noncompliance with renal dialysis; B19.20 Unspecified viral hepatitis C without hepatic coma; I25.10 Atherosclerotic heart disease of native coronary artery without angina pectoris; K29.70 Gastritis, unspecified, without bleeding; K29.80 Duodenitis without bleeding; K64.9 Unspecified hemorrhoids; K31.84 Gastroparesis

== ENCOUNTER 2017-12-14 12:14 | Inpatient (IN) | payer MEDICAID ==
[~2017-12-14] VITALS: Ht 177.8 cm; Wt 65.7 kg
[2017-12-14 14:14] VITALS: BP 96/62; BMI 22.8
[2017-12-14 21:08] VITALS: BP 194/103
[2017-12-15] VITALS: BP 154/88
[2017-12-15 04:00] VITALS: BP 177/101
[2017-12-15 06:26] LABS: BASOPHILS 0.2 % (0-2); EOSINOPHILS 2.9 % (0-7); HEMATOCRIT 23.4 % (42.0-54.0); IMMATURE GRANULOCYTES 0.4 % (0-5); MCH 28.5 pg (26.0-34.0); MCHC 31.2 g/dL (31.0-37.0); MCV 91.4 fL (80.0-100.0); MEAN PLATELET VOLUME 10.2 fL (7.4-10.4); MONOCYTES 8.9 % (2-11); NEUTROPHILS 60.6 % (40-80); PLATELET COUNT 179 10x3/uL (130-400); RBC 2.56 10x6/uL (4.20-6.10); WBC 5.1 10x3/uL (4.8-10.8)
[2017-12-15 06:38] LABS: HEMOGLOBIN 7.3 g/dL (13.5-17.5)
[2017-12-15 06:55] LABS: ANION GAP 17.2 mmol/L (8-16); CARBON DIOXIDE 23.5 mmol/L (21.0-32.0); CREATININE - SERUM 7.4 mg/dL (0.6-1.3); POTASSIUM - SERUM 3.7 mmol/L (3.5-5.1); VANCOMYCIN - RANDOM 31.6 ug/mL (10.0-20.0)
[2017-12-15 08:27] VITALS: BP 164/85
[2017-12-15 08:40] LABS: % SATURATION 25 % (15-55); IRON 62 ug/dl (35-150); TOTAL IRON BIND CAPACITY 245 ug/dl (260-445); UNSAT IRON BIND CAPACITY 183 ug/dl (150-375)
[2017-12-15 10:38] VITALS: Ht 177.8 cm; Wt 65.7 kg
[2017-12-15 16:51] VITALS: BP 160/86
[2017-12-15 20:33] VITALS: BP 153/83
[2017-12-16 01:00] VITALS: BP 152/91
[2017-12-16 04:00] VITALS: BP 149/92
[2017-12-16 07:35] LABS: BASOPHILS 0 % (0-2); EOSINOPHILS 1.9 % (0-7); IMMATURE GRANULOCYTES 0.2 % (0-5); LYMPHOCYTES 27.6 % (15-50); MCH 30.2 pg (26.0-34.0); MCHC 32.5 g/dL (31.0-37.0); MCV 92.8 fL (80.0-100.0); MEAN PLATELET VOLUME 10.5 fL (7.4-10.4); MONOCYTES 8.8 % (2-11); NEUTROPHILS 61.5 % (40-80); PLATELET COUNT 152 10x3/uL (130-400); RDW 17.2 % (11.5-14.5); WBC 4.2 10x3/uL (4.8-10.8)
[2017-12-16 07:50] LABS: HEMATOCRIT 32.3 % (42.0-54.0); HEMOGLOBIN 10.5 g/dL (13.5-17.5); RBC 3.48 10x6/uL (4.20-6.10)
[2017-12-16 07:53] LABS: ANION GAP 15.5 mmol/L (8-16); CALCIUM 8.2 mg/dL (8.5-10.1); CARBON DIOXIDE 27.3 mmol/L (21.0-32.0); CREATININE - SERUM 5.9 mg/dL (0.6-1.3); POTASSIUM - SERUM 3.8 mmol/L (3.5-5.1); VANCOMYCIN - RANDOM 22.9 ug/mL (10.0-20.0)
[2017-12-16 08:39] VITALS: BP 166/96
[2017-12-16 12:17] VITALS: BP 168/95
[2017-12-16 16:32] VITALS: BP 183/95
[2017-12-16 20:00] VITALS: BP 169/97
[2017-12-17 01:00] VITALS: BP 169/88
[2017-12-17 05:09] VITALS: BP 169/86
[2017-12-17 05:13] LABS: BASOPHILS 0 % (0-2); HEMATOCRIT 37.7 % (42.0-54.0); HEMOGLOBIN 12.1 g/dL (13.5-17.5); IMMATURE GRANULOCYTES 0.3 % (0-5); LYMPHOCYTES 25.1 % (15-50); MCH 29.6 pg (26.0-34.0); MCHC 32.1 g/dL (31.0-37.0); MCV 92.2 fL (80.0-100.0); MEAN PLATELET VOLUME 10.6 fL (7.4-10.4); NEUTROPHILS 64.6 % (40-80); PLATELET COUNT 131 10x3/uL (130-400); RBC 4.09 10x6/uL (4.20-6.10); RDW 16.7 % (11.5-14.5); WBC 3.5 10x3/uL (4.8-10.8)
[2017-12-17 05:57] LABS: ANION GAP 14.9 mmol/L (8-16); CALCIUM 8.4 mg/dL (8.5-10.1); CARBON DIOXIDE 26.2 mmol/L (21.0-32.0); POTASSIUM - SERUM 4.1 mmol/L (3.5-5.1); VANCOMYCIN - RANDOM 21.8 ug/mL (10.0-20.0)
[2017-12-17 08:29] VITALS: BP 166/92
[2017-12-17 11:54] VITALS: BP 179/89
== END 2017-12-17 12:02 | disposition home or self-care (01) | DRG 314 ==
LOC: D.M2 12:14 → D.SDCHOLD 12-16 15:52 → D.M2 12-17 12:02
PROVIDERS: Internal Medicine Nephrology
PROC: 5A1D70Z Performance of Urinary Filtration, Intermittent, Less than 6 Hours Per Day (ICD-10-PCS; principal; 2017-12-15)
DX: T82.7XXA Infection and inflammatory reaction due to other cardiac and vascular devices, implants and grafts, initial encounter (principal); N18.6 End stage renal disease; I13.2 Hypertensive heart and chronic kidney disease with heart failure and with stage 5 chronic kidney disease, or end stage renal disease; Y83.8 Other surgical procedures as the cause of abnormal reaction of the patient, or of later complication, without mention of misadventure at the time of the procedure; I50.9 Heart failure, unspecified; Z99.2 Dependence on renal dialysis; B19.20 Unspecified viral hepatitis C without hepatic coma; I25.10 Atherosclerotic heart disease of native coronary artery without angina pectoris; Z72.0 Tobacco use

== ENCOUNTER 2017-12-23 01:27 | Inpatient (IN) | payer MEDICAID ==
[~2017-12-23] VITALS: Ht 177.8 cm; Wt 71.7 kg
--- NOTE | ~2017-12-23 | OP ---
PATIENT NAME: ODETTE OH MEDICAL RECORD: [id number] :[birth year] LOCATION:D. D.2125 ADMISSION DATE:12/26/17 SURGEON: DINH NICOLE MD DATE OF OPERATION: 12/23/2017 PROCEDURE: Bilateral selective renal angiography. INDICATION: Out of control hypertension. DESCRIPTION OF PROCEDURE: After informed consent was obtained and after detailed explanation of risks, benefits as well as alternative therapies, the patient elected to proceed with angiogram. The right femoral area had a preexisting sheath from coronary intervention. All catheters exchanged through the sheath. FINDINGS: There was sub-selection of each renal artery. The right renal artery is a solitary artery off the aorta with no significant pressure damping at the ostium. No significant renal artery stenosis. The left renal artery is a solitary artery off the aorta with no significant pressure damping. No renal artery stenosis. OVERALL IMPRESSION: Essential hypertension, no renal artery stenosis is present. TRANSINT:[id number] Voice Confirmation ID: [id number] DOCUMENT ID: [id number] DINH NICOLE MD at 1849 CC: [id number] DICTATION DATE: 12/26/17 1127 SOCIAL WORKER [employer]: 12/26/17 1244 ADM IN [facility] [address] [place] [address]
--- NOTE | ~2017-12-23 | OP ---
PATIENT NAME: ODETTE OH MEDICAL RECORD: [id number] :[birth year] LOCATION:D.M2 D.2125 ADMISSION DATE:12/26/17 SURGEON: DINH NICOLE MD DATE OF OPERATION: 12/23/2017 PROCEDURES: 1. Left heart catheterization. 2. Selective coronary angiography. 3. Left ventriculogram. INDICATION: Elevated troponin, chest pain. PROCEDURE IN DETAIL: After informed consent was obtained and after detailed explanation of risks, benefits as well as alternative therapies, the patient elected to proceed with angiogram and heart catheterization. The right femoral area was prepped and draped in normal sterile fashion. Right femoral artery was cannulated via modified Seldinger technique with placement of 6-Arabic sheath. All catheters exchanged through this sheath. FINDINGS: The left ventriculogram was performed in a standard 30-degree SHAW view, reveals global hypokinesis throughout all segments. Overall ejection fraction in the 30% range. SELECTIVE CORONARY ANGIOGRAPHY: Left main, left anterior descending, left circumflex, right coronary are all smooth-walled vessels with no angiographic evidence of coronary artery disease. OVERALL IMPRESSION: 1. No angiographic evidence of coronary artery disease. 2. Normal left heart pressures. 3. Normal left ventricular systolic function. Chest pain and elevated troponin are secondary to out of control hypertension. Center medical management of the hypertension. No fixed obstructive coronary artery disease is present. TRANSINT:[id number] Voice Confirmation ID: [id number] DOCUMENT ID: [id number] DINH NICOLE MD at 1848 CC: [id number] DICTATION DATE: 12/23/17 1302 SECURITY NURSE: 12/23/17 1646 ADM IN [place] [id number] [place] [address]
--- NOTE | ~2017-12-23 | HEMODYNAMI ---
PATIENT:ODETTE OH MEDICAL RECORD: [id number] : 64 LOCATION:[address] ADMISSION DATE: 12/23/17 Generatedon:12/23/201713:01 Patient name: ODETTE OH Patient #: [id number] SSN: : Date of study: 12/23/2017 Page: Of Hemodynamic Procedure Report Patient Data Patient Demographics Procedure consent was obtained First Name: ODETTE Gender: Male Last Name: ADRIANO : 1960 [facility] Initial: L Age: 57 year(s) Patient #: [id number] Race: Black Additional ID: [id number] Contact details Address: [address] [place] [address] State: [place] City: [place] Zip code: [address] Past Medical History Allergies Allergen Reaction Date Comments Reported Other allergy 12/23/2017 Minoxidil Admission Admission Data Admission Date: 12/23/2017 Admission Time: 1:28 Room #: D2125 Lab Results Lab Result Date: 12/23/2017 Lab Result Time: 2:45 Biochemistry Name Units Result Min Max BUN mg/dl 31 --(----)-* 7 18 Creatinine mg/dl 6.5 --(----)-* 0.6 1.3 CBC Name Units Result Min Max Hematocrit % 28.3 *-(----)-- 42 54 Hemoglobin g/dl 8.8 *-(----)-- 13.5 17.5 Procedure Procedure Types Cath Procedure Diagnostic Procedure LHC LHC w/Coronaries Peripheral Cath Diagnostic Procedure Abd/Extremity Renal Renal Unilateral Procedure Description Procedure Date Procedure Date: 12/23/2017 Procedure Start Time: 12:53 Procedure End Time: 13:00 Procedure Staff Name Function José Alvarez MD Performing Physician Shawn Manning RN Mine Laborer Jan Jordan RT Monitor Puma العلي RN Nurse Roseanne Quintana RT Scrub Procedure Data Cath Procedure Fluoroscopy Diagnostic fluoroscopy Total fluoroscopy Time: 1.7 time: 1.7 min min Diagnostic fluoroscopy Total fluoroscopy dose: 380 dose: 380 mGy mGy Contrast Material Contrast Material Type Amount (ml) Isovue 300 61 Entry Location Entry Primary Successful Side Size Upsize Upsize Entry Closure Succes sful Closure Location (Fr) 1 (Fr) 2 (Fr) Remarks Device Remarks Femoral Right 5 Fr Exoseal artery Estimated blood loss: 5 ml Diagnostic catheters Device Type Used For End Catheter Placement MULTIPACK Pigtail 5 Fr Procedure catheter MULTIPACK JL 4.0 5Fr Procedure catheter MULTIPACK 3DRC 5Fr Procedure catheter Procedure Complications No complications Procedure Medications Medication Administration Route Dosage 0.9% NaCl I.V. 30 ml/hr Oxygen NC 2 l/min Heparin Flush Bag added to field 2 bags (1000units/500ml NS) Lidocaine 2% added to field 20 Versed I.V. 1 mg Fentanyl I.V. 50 mcg Versed I.V. 1 mg Hemodynamics Rest HGB: 8.8 (g/dl) Heart Rate: 65 (bpm) Snapshots Pre Cath Intra NCS Post Cath Vital Signs Time Heart Resp SPO2 etCO2 NIBP (mmHg) Rhythm Pain Sedation Rate (ipm) (%) (mmHg) Status Level (bpm) 12:40:57 62 14 97 0 178/99(131) NSR 0 (11) 10(A) , No pain 12:46:17 62 15 94 0 167/102(121) NSR 0 (11) 10(A) , No pain 12:51:01 61 15 93 0 158/94(135) NSR 0 (11) 10(A) , No pain 12:55:46 65 17 91 0 145/86(127) NSR 0 (11) 10(A) , No pain 13:00:27 64 15 90 0 154/88(124) NSR 0 (11) 10(A) , No pain Medications Time Medication Route Dose Verified Delivered Reason Notes Effe ctiveness by by 12:44:33 0.9% NaCl I.V. 30 Puma Puma Per ml/hr Zohra العلي physician RN RN 12:44:44 Oxygen NC 2 Puma Puma Per l/min Zohra العلي physician RN RN 12:45:23 Heparin Flush added 2 Puma Puma used for Bag to bags Zohra العلي procedure (1000units/500ml field RN RN NS) 12:45:39 Lidocaine 2% added 20ml Puma Puma for local to vial Lorigan Lorigan anesthetic field RN RN 12:50:42 Versed I.V. 1 mg Puma Puma for Lorigan Lorigan sedation RN RN 12:50:51 Fentanyl I.V. 50 Puma Puma for mcg Lorigan Lorigan sedation RN RN 12:53:09 Versed I.V. 1 mg Puma Puma for Lorigan Lorigan sedation RN staff weapons officer Log Time Note 12:25:50 Shawn Manning RN sent for patient. Start room use. 12:25:51 Time tracking: Regular hours (M-F 7:00 - 5:00) 12:25:55 Plan of Care:Hemodynamics will remain stable., Cardiac rhythm will remain stable., Comfort level will be maintained., Respiratory function will remain adequate., Patient/ family verbilizes understanding of procedure., Procedure tolerated without complication., Recovers from procedure without complications.. 12:34:51 Patient received from Med II to CCL 1 Alert and oriented. Tansferred to table in Supine position. 12:34:52 Warm blankets applied, and joe hugger turned on for patient comfort. 12:34:53 Correct patient and procedure confirmed by team. 12:34:55 Signed procedure consent form obtained from patient. 12:34:56 ECG and BP/O2 sat monitors applied to patient. 12:40:00 Vital chart was started 12:44:33 0.9% NaCl 30 ml/hr I.V. was administered by Puma العلي RN; Per physician; 12:44:44 Oxygen 2 l/min NC was administered by Puma العلي RN; Per physician; 12:45:23 Heparin Flush Bag (1000units/500ml NS) 2 bags added to field was administered by Puma العلي RN; used for procedure; 12:45:35 Baseline sample Acquired. 12:45:39 Lidocaine 2% 20ml vial added to field was administered by Puma العلي RN; for local anesthetic; 12:45:39 Rhythm: sinus rhythm 12:45:41 Full Disclosure recording started 12:46:10 H&P Date Dictated: 12/23/2017 Within 30 days and on chart.. 12:46:11 Pre-procedure instructions explained to patient. 12:46:11 Pre-op teaching completed and patient verbalized understanding. 12:46:19 Family unavailable. 12:46:21 Patient NPO since Midnight. 12:46:35 Patient allergic to Other allergyMinoxidil 12:46:37 Is the patient allergic to Iodine/contrast media? No. 12:46:38 Is patient on blood thinner?No 12:46:39 Patient diabetic? No. 12:46:42 Previous problem with sedation/anesthesia? No ? 12:46:43 Snore? No 12:46:43 Sleep apnea? No 12:46:44 Deviated septum? No 12:46:45 Opens mouth fully? Yes 12:46:46 Sticks out tongue? Yes 12:46:48 Airway obstruction? No ? 12:46:49 Dentures? No ? 12:46:52 Pre procedure: right dorsailis pedis pulse 2+ Normal; easily identifiable; not easily obliterated 12:46:53 Patient pain scale 0/10 ?. 12:46:58 IV patent on arrival in right antecubital with 0.9% NaCl at [facility]. 12:48:05 Lab Result : BUN 31 mg/dl 12:48:05 Lab Result : Hemoglobin 8.8 g/dl 12:48:05 Lab Result : Creatinine 6.5 mg/dl 12:48:05 Lab Result : Hematocrit 28.3 % 12:48:08 Lab results completed and on chart. 12:48:10 Right groin area was prepped with chlora-prep and draped in sterile fashion 12:48:11 Alarms reviewed by R. N. 12:48:12 Sharps counted by scrub and verified by R.N. 12:48:14 Use device set Femoral Dx 12:48:15 ACIST Syringe (35601) opened to sterile field. 12:48:15 Bag Decanter (2002) opened to sterile field. 12:48:17 ACIST Hand Control (72359) opened to sterile field. 12:48:17 ACIST Manifold (25786) opened to sterile field. 12:48:18 Tegaderm 4 x 4 (1626W) opened to sterile field. 12:48:20 Medline Cath Pack ([id number]) opened to sterile field. 12:48:21 DIAGNOSTIC WIRE .035 260cm J wire (413194) opened to sterile field. 12:48:22 DIAGNOSTIC Multipack 5Fr catheter set ([id number]) opened to sterile field. 12:48:23 SHEATH Prelude 5Fr 0.035 ([id number]-9V-60-035) opened to sterile field. 12:48:30 Physician arrived 12:48:31 --------ALL STOP TIME OUT------ 12:48:31 Final Timeout: patient, procedure, and site verified with staff and physician. All members of the team are in agreement. 12:48:32 Right groin site verified by team. 12:48:34 Physical assessment completed. ASA score P 2 - A patient with mild systemic disease as per José Alvarez MD. 12:48:36 Sedation plan: IV Moderate Sedation Medication:Versed, Fentanyl 12:50:42 Versed 1 mg I.V. was administered by Puma العلي RN; for sedation; 12:50:51 Fentanyl 50 mcg I.V. was administered by Puma العلي RN; for sedation; 12:51:40 Zero performed for pressure channel P1 12:53:09 Versed 1 mg I.V. was administered by Puma العلي RN; for sedation; 12:53:10 Procedure started. 12:53:15 Local anesthetic to right femoral artery with Lidocaine 2% by José Alvarez MD.INITIAL ACCESS ONLY 12:53:23 A 5 Fr sheath was inserted into the Right Femoral artery 12:53:27 A MULTIPACK Pigtail 5 Fr catheter was advanced over the wire and used for Procedure. 12:53:34 LV gram done using SHAW 12:53:37 Injector settings: Ml/sec: 10, Volume: 20, 12:53:51 EF : 30 % 12:54:24 Catheter exchanged over wire. 12:54:28 A MULTIPACK JL 4.0 5Fr catheter was advanced over the wire and used for Procedure. 12:54:53 LCA angiography performed. 12:55:25 Catheter exchanged over wire. 12:55:31 A MULTIPACK 3DRC 5Fr catheter was advanced over the wire and used for Procedure. 12:56:02 RCA angiography performed. 12:56:25 Left renal angiography performed. 12:56:34 Right renal angiography performed. 12:57:24 Catheter removed. 12:57:25 EXOSEAL 5Fr (EX500) opened to sterile field. 12:57:32 Sheath removed intact; hemostasis achieved with Exoseal to the Right Femoral artery. 12:57:34 Procedure ended.(Physican Out) 12:57:55 Fluoroscopy time 01.70 minutes. 12:57:59 Fluoroscopy dose: 380 mGy 12:57:59 Flurop Dose total: 380 12:58:13 Contrast amount:Isovue 300 61ml. 12:58:36 Sharps counted by scrub and verified by R.N. 12:58:37 Insertion/operative site no bleeding no hematoma. 12:58:40 Post-op/insertion site Right Femoral artery dressed using a 4 x 4 and Tegaderm. 12:58:43 Post right femoral artery:stable, soft, clean and dry 12:58:45 Post Procedure Pulses reassessed and unchanged 12:58:47 Post-procedure physical assessment completed. ASA score P 2 - A patient with mild systemic disease as per José Alvarez MD. 12:58:49 Post procedure rhythm: unchanged. 12:58:53 Estimated blood loss: 5 ml 12:58:55 Post procedure instruction explained to patient.Patient verbalizes understanding. 12:59:41 Patient needs reinforcement of post procedure teaching. 13:00:01 Procedure type changed to Cath procedure, Diagnostic procedure, LHC, LHC w/Coronaries, Peripheral Cath Diagnostic Procedure, Abd/Extremity, Renal, Renal Unilateral 13:00:30 Procedure and supply charges have been captured, reviewed, submitted and are correct. 13:00:32 Procedure Complication : No complications 13:00:35 Vital chart was stopped 13:00:36 See physician's report for complete and final results. 13:00:37 Report given to PCU. 13:00:45 Patient transfered to PCU with Stretcher. 13:00:47 Procedure ended. 13:00:47 Full Disclosure recording stopped 13:00:52 End room use (Document Last) Device Usage Item Name Manufacture Quantity Catalog Number Hospital Part Current M inimal Lot# / Charge Number Stock Stock Serial# Code ACIST Syringe Acist 1 13558 022011 134985 841415 2 0 (62757) Medical [employer] Inc Bag Decanter Microtek 1 [id number] 57405 808337 5 () Medical Inc. ACIST Hand Acist 1 68786 807209 012741 560808 5 Control (41092) Medical Systems Inc ACIST Manifold Acist 1 56946 746638 764879 422049 5 (82489) Medical Systems Inc Tegaderm 4 x 4 3M 1 1626W 472879 797798 322924 5 (1626W) Medline Cath Cardinal 1 [id number] 169438 83109 507334 5 Pack Health ([id number]) DIAGNOSTIC WIRE St Jose 1 244915 797777 660014 233589 3 0 .035 260cm J wire (648283) DIAGNOSTIC Cardinal 1 [id number] 670401 57843 099399 3 0 Multipack 5Fr Health catheter set ([id number]) SHEATH Prelude Merit 1 [id number]-[id number] 688113 295128 549878 5 5Fr 0.035 Medical (YAP-7P-20-035) MULTIPACK Cardinal 1 996607 5 Pigtail 5 Fr Health catheter MULTIPACK JL Cardinal 1 554165 5 4.0 5Fr Health catheter MULTIPACK 3DRC Cardinal 1 [id number] 5 5Fr catheter Health EXOSEAL 5Fr Cardinal 1 EX500 017839 662429 699777 1 0 (EX500) Health Signature Audit [place] Stage Time Signature Unsigned Intra-Procedure 12/23/2017 Jan Jordan 1:01:42 PM RT(R) Signatures Monitor : Jan Jordan RT Signature : Date : Time : [id number] [place] [address]
--- NOTE | ~2017-12-23 | CN ---
PATIENT NAME:ODETTE OH MEDICAL RECORD: [id number] : 64 LOCATION:[facility] D.2125 ADMIT DATE: 12/26/17 ACCOUNT: [id number] CONSULTING PHYSICIAN: DINH NICOLE MD REFERRING PHYSICIAN: ZAHRA THORNTON MD DATE OF CONSULTATION: 12/23/2017 CARDIOLOGY CONSULTATION DIAGNOSES: 1. Unstable angina. 2. Elevated troponin. 3. Hypertension. 4. End-stage renal failure. HISTORY OF PRESENT ILLNESS: Mr. Oh presents with chest pain. This is the first time he has had chest pain. He presented to [facility] with chest pain. He was transferred here due to an elevated troponin. He has continued to have chest pain at a 7/10 level. His EKG is compatible with a left ventricular hypertrophy, but no acute ST-T abnormalities. PHYSICAL EXAMINATION: GENERAL APPEARANCE: Well-nourished, well-developed, appears stated age. Level of distress, comfortable. PSYCHIATRIC: Mental status, alert, normal affect. Orientation, oriented to time, place and person. EYES: Lids and conjunctiva, noninjected. No discharge, no pallor. ENT: Lips, teeth, gums, normal dentition. Oropharynx, no cyanosis, no pallor. NECK: Carotid arteries, bilateral normal upstroke, no bruits, no thrills. JUGULAR VEINS: No jugular venous pressure or distention. CERVICAL LYMPH NODES: Nontender, nonenlarged. THYROID: Not enlarged. Nontender. No nodules. LUNGS: Respiratory effort, unlabored. CHEST: Normal curvature. No thoracic deformity. No chest wall tenderness. Percussion, resonant. Auscultation, clear. No wheezes, no rales, no rhonchi. CARDIOVASCULAR: Precordial exam, nondisplaced. No heaves or pericardial thrills. Rate and rhythm, regular. Heart sounds, normal S1, normal S2. No S3, no gallop, no rub. Systolic murmur, not heard. Diastolic murmur, not heard. EXTREMITIES: No cyanosis, no edema. Peripheral pulses, full and equal in all extremities, except as noted. No bruits appreciated. ABDOMEN: Soft, nondistended. Normal aorta. No bruit. Nontender. No masses. Liver, nontender, no hepatomegaly. Spleen, nontender, no splenomegaly. MUSCULOSKELETAL: No joint tenderness. No joint swelling. No erythema. NEUROLOGICAL: Normal gait, normal strength, normal tone. SKIN: Warm and dry. OVERALL IMPRESSION: Elevated troponin with continued severe chest pain. We will proceed with coronary angiography. Further care depends upon findings of the angiography. TRANSINT:[id number] Voice Confirmation ID: [id number] DOCUMENT ID: [id number] CONSULT REPORT [id number] ODETTE OH, DINH GOMEZ at 1848 CC: [id number] DICTATION DATE: 12/23/17 1159 SHEARING MACHINE TENDER: 12/23/17 1633 ADM IN [facility] [address] [place] [id number]
[2017-12-23 02:34] LABS: HEMATOCRIT 28.3 % (42.0-54.0); HEMOGLOBIN 8.8 g/dL (13.5-17.5); MCH 28.8 pg (26.0-34.0); MCHC 31.1 g/dL (31.0-37.0); MCV 92.5 fL (80.0-100.0); MEAN PLATELET VOLUME 9.6 fL (7.4-10.4); PLATELET COUNT 121 10x3/uL (130-400); RBC 3.06 10x6/uL (4.20-6.10); RDW 17.4 % (11.5-14.5); WBC 6.4 10x3/uL (4.8-10.8)
[2017-12-23 02:43] LABS: CALC OSMOLALITY 285 mosm/kg (275-300); CALCIUM 8.4 mg/dL (8.5-10.1); CARBON DIOXIDE 27.5 mmol/L (21.0-32.0); CHLORIDE - SERUM 105 mmol/L (98-107); CREATININE - SERUM 6.5 mg/dL (0.6-1.3); GLUCOSE 90 mg/dL (74-106); POTASSIUM - SERUM 3.8 mmol/L (3.5-5.1); SODIUM 140 mmol/L (136-145); UREA NITROGEN 31 mg/dL (7-18); eGFR NON AFRICAN AMERICAN 9 mL/min (90-120)
[2017-12-23 02:47] LABS: EOSINOPHILS 3 % (0-7); LYMPHOCYTES 24 % (15-50); MONOCYTES 10 % (2-11); NEUTROPHILS 63 % (40-80)
[2017-12-23 02:48] LABS: PLATELET ESTIMATE NORMAL
[2017-12-23 03:08] VITALS: BP 195/109; BMI 23.2
[2017-12-23 03:25] LABS: CKMB 0.5 U/L (0.0-3.6); CREATINE KINASE 31 UL (21-232)
[2017-12-23 03:30] LABS: TROPONIN-I 0.076 ng/mL (0.000-0.060)
[2017-12-23 08:38] VITALS: BP 166/99
[2017-12-23 09:39] LABS: CKMB 0.6 U/L (0.0-3.6); CREATINE KINASE 25 UL (21-232); TROPONIN-I 0.056 ng/mL (0.000-0.060)
[2017-12-23 12:15] VITALS: BP 163/91
[2017-12-23 13:28] VITALS: BMI 23.1
[2017-12-23 16:29] VITALS: Ht 177.8 cm; Wt 71.7 kg
[2017-12-23 16:41] LABS: % SATURATION 23 % (15-55); IRON 51 ug/dl (35-150); TOTAL IRON BIND CAPACITY 220 ug/dl (260-445); UNSAT IRON BIND CAPACITY 169 ug/dl (150-375)
[2017-12-23 20:30] VITALS: BP 186/97
[2017-12-24 01:26] VITALS: BP 161/89
[2017-12-24 05:37] VITALS: BP 161/95
[2017-12-24 05:49] LABS: BASOPHILS 0.1 % (0-2); EOSINOPHILS 0.9 % (0-7); HEMATOCRIT 24.7 % (42.0-54.0); HEMOGLOBIN 7.7 g/dL (13.5-17.5); IMMATURE GRANULOCYTES 0.3 % (0-5); LYMPHOCYTES 24.1 % (15-50); MCH 29.1 pg (26.0-34.0); MCHC 31.2 g/dL (31.0-37.0); MCV 93.2 fL (80.0-100.0); MEAN PLATELET VOLUME 10.9 fL (7.4-10.4); MONOCYTES 8.8 % (2-11); NEUTROPHILS 65.8 % (40-80); PLATELET COUNT 115 10x3/uL (130-400); RBC 2.65 10x6/uL (4.20-6.10); RDW 17.8 % (11.5-14.5); WBC 6.8 10x3/uL (4.8-10.8)
[2017-12-24 06:03] LABS: ALBUMIN 2.6 g/dL (3.4-5.0); ANION GAP 15.6 mmol/L (8-16); BILIRUBIN - TOTAL 0.67 mg/dL (0.2-1.3); CALCIUM 8.5 mg/dL (8.5-10.1); CARBON DIOXIDE 22.7 mmol/L (21.0-32.0); CREATININE - SERUM 7.3 mg/dL (0.6-1.3); POTASSIUM - SERUM 4.3 mmol/L (3.5-5.1); PROTEIN - SERUM 7.4 g/dL (6.4-8.2)
[2017-12-24 08:53] VITALS: BP 147/84
[2017-12-24 12:40] LABS: UDS - AMPHET NEGATIVE QUAL (NEGATIVE); UDS - BARB NEGATIVE QUAL (NEGATIVE); UDS - BENZO POSITIVE QUAL (NEGATIVE); UDS - COCAINE POSITIVE QUAL (NEGATIVE); UDS - OPIATE POSITIVE QUAL (NEGATIVE); UDS - PCP NEGATIVE QUAL (NEGATIVE); UDS - THC NEGATIVE QUAL (NEGATIVE)
[2017-12-24 13:12] LABS: APPEARANCE HAZY (CLEAR); COLOR YELLOW (YELLOW)
[2017-12-24 13:13] LABS: BILIRUBIN NEGATIVE (NEGATIVE); GLUCOSE NEGATIVE (NEGATIVE); KETONE NEGATIVE (NEGATIVE); NITRITE NEGATIVE (NEGATIVE); PH 5.5 (5.0-6.0); PROTEIN 3+ mg/dL (NEGATIVE); UROBILINOGEN NORMAL (NORMAL)
[2017-12-24 13:16] LABS: BACTERIA FEW /hpf (NONE SEEN); EPITHELIAL CELLS OCC /hpf (0-5); RED CELLS - URINE 25-50 /hpf (0-5)
[2017-12-24 13:17] LABS: GRANULAR CAST OCC /lpf (NONE SEEN); HYALINE CAST RARE /lpf (NONE SEEN)
[2017-12-24 20:00] VITALS: BP 182/89
[2017-12-25] VITALS: BP 188/100
[2017-12-25 04:00] VITALS: BP 181/101
[2017-12-25 05:25] LABS: BASOPHILS 0.2 % (0-2); IMMATURE GRANULOCYTES 0.2 % (0-5); LYMPHOCYTES 19.4 % (15-50); MCH 29.1 pg (26.0-34.0); MCHC 32.4 g/dL (31.0-37.0); MEAN PLATELET VOLUME 10.8 fL (7.4-10.4); MONOCYTES 10.6 % (2-11); NEUTROPHILS 67.6 % (40-80); PLATELET COUNT 118 10x3/uL (130-400); WBC 5.4 10x3/uL (4.8-10.8)
[2017-12-25 05:30] LABS: HEMATOCRIT 31.5 % (42.0-54.0); HEMOGLOBIN 10.2 g/dL (13.5-17.5)
[2017-12-25 05:38] LABS: ALBUMIN 2.6 g/dL (3.4-5.0); BILIRUBIN - TOTAL 0.7 mg/dL (0.2-1.3); CALCIUM 8.1 mg/dL (8.5-10.1); CREATININE - SERUM 5.8 mg/dL (0.6-1.3); PROTEIN - SERUM 7.6 g/dL (6.4-8.2)
[2017-12-25 05:39] LABS: ANION GAP 13.6 mmol/L (8-16); POTASSIUM - SERUM 3.6 mmol/L (3.5-5.1)
[2017-12-25 08:45] LABS: AMYLASE - SERUM 99 U/L (25-115)
[2017-12-25 08:53] LABS: LIPASE 61 U/L (73-393)
[2017-12-25 09:16] VITALS: BP 186/92
[2017-12-25 12:02] VITALS: BP 173/89
[2017-12-25 15:39] VITALS: BP 173/116
[2017-12-25 20:00] VITALS: BP 194/92
[2017-12-26] VITALS: BP 165/100
[2017-12-26 04:00] VITALS: BP 175/100
[2017-12-26 06:21] LABS: BASOPHILS 0 % (0-2); EOSINOPHILS 1.6 % (0-7); HEMATOCRIT 30.7 % (42.0-54.0); HEMOGLOBIN 9.9 g/dL (13.5-17.5); IMMATURE GRANULOCYTES 0.2 % (0-5); LYMPHOCYTES 21.1 % (15-50); MCH 28.7 pg (26.0-34.0); MCHC 32.2 g/dL (31.0-37.0); MEAN PLATELET VOLUME 10.4 fL (7.4-10.4); MONOCYTES 10.3 % (2-11); NEUTROPHILS 66.8 % (40-80); PLATELET COUNT 113 10x3/uL (130-400); RBC 3.45 10x6/uL (4.20-6.10); WBC 5.5 10x3/uL (4.8-10.8)
[2017-12-26 06:45] LABS: ALBUMIN 2.6 g/dL (3.4-5.0); BILIRUBIN - TOTAL 0.57 mg/dL (0.2-1.3); CALCIUM 7.9 mg/dL (8.5-10.1); CARBON DIOXIDE 23.9 mmol/L (21.0-32.0); CREATININE - SERUM 6.6 mg/dL (0.6-1.3); POTASSIUM - SERUM 3.9 mmol/L (3.5-5.1); PROTEIN - SERUM 7.6 g/dL (6.4-8.2)
[2017-12-26 07:57] VITALS: BP 184/95
[2017-12-26 12:12] LABS: FOLATE (FOLIC ACID) - SERUM 7.7 ng/mL (>3.0)
[2017-12-26 15:17] VITALS: BP 174/83
[2017-12-26 20:00] VITALS: BP 194/93
[2017-12-27] VITALS: BP 196/94
[2017-12-27 04:00] VITALS: BP 192/96
[2017-12-27 06:20] LABS: BASOPHILS 0 % (0-2); EOSINOPHILS 1.4 % (0-7); HEMATOCRIT 33.4 % (42.0-54.0); HEMOGLOBIN 10.8 g/dL (13.5-17.5); IMMATURE GRANULOCYTES 0.3 % (0-5); LYMPHOCYTES 17.8 % (15-50); MCH 28.7 pg (26.0-34.0); MCHC 32.3 g/dL (31.0-37.0); MCV 88.8 fL (80.0-100.0); NEUTROPHILS 70.5 % (40-80); PLATELET COUNT 131 10x3/uL (130-400); RBC 3.76 10x6/uL (4.20-6.10); RDW 17.5 % (11.5-14.5); WBC 6.4 10x3/uL (4.8-10.8)
[2017-12-27 06:47] LABS: ALBUMIN 2.7 g/dL (3.4-5.0); BILIRUBIN - TOTAL 0.6 mg/dL (0.2-1.3); CALCIUM 8.4 mg/dL (8.5-10.1); PHOSPHOROUS 5.6 mg/dL (2.5-4.9); PROTEIN - SERUM 8.1 g/dL (6.4-8.2); VANCOMYCIN - RANDOM 30.5 ug/mL (10.0-20.0)
[2017-12-27 08:09] VITALS: BP 189/89
[2017-12-27 11:41] VITALS: BP 168/86
[2017-12-27 15:32] VITALS: BP 181/90
[2017-12-27 20:00] VITALS: BP 178/88
[2017-12-28] VITALS: BP 165/79
[2017-12-28 04:00] VITALS: BP 170/80
[2017-12-28 06:15] LABS: BASOPHILS 0 % (0-2); HEMATOCRIT 32.4 % (42.0-54.0); HEMOGLOBIN 10.4 g/dL (13.5-17.5); IMMATURE GRANULOCYTES 0.2 % (0-5); LYMPHOCYTES 19.9 % (15-50); MCH 28.7 pg (26.0-34.0); MCHC 32.1 g/dL (31.0-37.0); MCV 89.3 fL (80.0-100.0); MEAN PLATELET VOLUME 10.8 fL (7.4-10.4); MONOCYTES 8.5 % (2-11); NEUTROPHILS 69.4 % (40-80); PLATELET COUNT 137 10x3/uL (130-400); RBC 3.63 10x6/uL (4.20-6.10); RDW 17.4 % (11.5-14.5); WBC 5.9 10x3/uL (4.8-10.8)
[2017-12-28 06:28] LABS: ALBUMIN 2.6 g/dL (3.4-5.0); ANION GAP 17.7 mmol/L (8-16); BILIRUBIN - TOTAL 0.5 mg/dL (0.2-1.3); CALCIUM 8.3 mg/dL (8.5-10.1); CARBON DIOXIDE 23.8 mmol/L (21.0-32.0); CREATININE - SERUM 6.8 mg/dL (0.6-1.3); PHOSPHOROUS 5.8 mg/dL (2.5-4.9); POTASSIUM - SERUM 3.5 mmol/L (3.5-5.1); PROTEIN - SERUM 7.7 g/dL (6.4-8.2); VANCOMYCIN - RANDOM 26.6 ug/mL (10.0-20.0)
[2017-12-28 07:59] VITALS: BP 172/91
[2017-12-28 17:10] VITALS: BP 130/81
[2017-12-28 20:15] VITALS: BP 154/74
[2017-12-28 23:40] VITALS: BP 144/77
[2017-12-29 04:05] VITALS: BP 165/80
[2017-12-29 05:41] LABS: BASOPHILS 0.2 % (0-2); EOSINOPHILS 1.7 % (0-7); HEMATOCRIT 34.3 % (42.0-54.0); IMMATURE GRANULOCYTES 0.2 % (0-5); LYMPHOCYTES 20.2 % (15-50); MCH 28.6 pg (26.0-34.0); MCHC 32.1 g/dL (31.0-37.0); MCV 89.3 fL (80.0-100.0); MEAN PLATELET VOLUME 10.4 fL (7.4-10.4); MONOCYTES 12.1 % (2-11); NEUTROPHILS 65.6 % (40-80); PLATELET COUNT 151 10x3/uL (130-400); RBC 3.84 10x6/uL (4.20-6.10); RDW 17.4 % (11.5-14.5); WBC 5.9 10x3/uL (4.8-10.8)
[2017-12-29 06:08] LABS: ANION GAP 16.7 mmol/L (8-16); CALCIUM 8.7 mg/dL (8.5-10.1); CARBON DIOXIDE 27.3 mmol/L (21.0-32.0); CREATININE - SERUM 5.9 mg/dL (0.6-1.3); PHOSPHOROUS 5.9 mg/dL (2.5-4.9); VANCOMYCIN - RANDOM 24.9 ug/mL (10.0-20.0)
[2017-12-29 08:05] VITALS: BP 91/56
[2017-12-29 16:05] VITALS: BP 148/92
[2017-12-29 19:54] VITALS: BP 169/87
[2017-12-30 01:30] VITALS: BP 167/89
[2017-12-30 04:40] VITALS: BP 168/97
[2017-12-30 05:59] LABS: BASOPHILS 0 % (0-2); HEMATOCRIT 34.9 % (42.0-54.0); HEMOGLOBIN 11.4 g/dL (13.5-17.5); IMMATURE GRANULOCYTES 0.2 % (0-5); LYMPHOCYTES 27.6 % (15-50); MCH 28.9 pg (26.0-34.0); MCHC 32.7 g/dL (31.0-37.0); MCV 88.4 fL (80.0-100.0); MEAN PLATELET VOLUME 10.2 fL (7.4-10.4); MONOCYTES 9.1 % (2-11); NEUTROPHILS 61.1 % (40-80); PLATELET COUNT 161 10x3/uL (130-400); RBC 3.95 10x6/uL (4.20-6.10); RDW 16.9 % (11.5-14.5); WBC 5.5 10x3/uL (4.8-10.8)
[2017-12-30 06:13] LABS: ANION GAP 19.9 mmol/L (8-16); CALCIUM 8.4 mg/dL (8.5-10.1); CARBON DIOXIDE 25.1 mmol/L (21.0-32.0); CREATININE - SERUM 7.2 mg/dL (0.6-1.3); VANCOMYCIN - RANDOM 24.6 ug/mL (10.0-20.0)
[2017-12-30 06:14] LABS: PHOSPHOROUS 7.4 mg/dL (2.5-4.9)
[2017-12-30 07:54] VITALS: BP 169/81
== END 2017-12-30 13:59 | disposition home or self-care (01) | DRG 286 ==
LOC: D.OPS 01:27 → OBSVTIME 01:28 → D.M2 01:28
PROVIDERS: Internal Medicine Interventional Cardiology; Internal Medicine Nephrology
PROC: B2151ZZ Fluoroscopy of Left Heart using Low Osmolar Contrast (ICD-10-PCS; 2017-12-23)
PROC: 4A023N7 Measurement of Cardiac Sampling and Pressure, Left Heart, Percutaneous Approach (ICD-10-PCS; 2017-12-23)
PROC: B4181ZZ Fluoroscopy of Bilateral Renal Arteries using Low Osmolar Contrast (ICD-10-PCS; 2017-12-23)
PROC: B2111ZZ Fluoroscopy of Multiple Coronary Arteries using Low Osmolar Contrast (ICD-10-PCS; principal; 2017-12-23 14:15)
DX: I16.0 Hypertensive urgency (principal); N18.6 End stage renal disease; F17.203 Nicotine dependence unspecified, with withdrawal; T82.848A Pain due to vascular prosthetic devices, implants and grafts, initial encounter; I13.2 Hypertensive heart and chronic kidney disease with heart failure and with stage 5 chronic kidney disease, or end stage renal disease; I50.9 Heart failure, unspecified; E78.5 Hyperlipidemia, unspecified; I25.10 Atherosclerotic heart disease of native coronary artery without angina pectoris; K21.9 Gastro-esophageal reflux disease without esophagitis; B19.20 Unspecified viral hepatitis C without hepatic coma; Z91.19 Patient's noncompliance with other medical treatment and regimen; D63.8 Anemia in other chronic diseases classified elsewhere; D69.6 Thrombocytopenia, unspecified; F14.10 Cocaine abuse, uncomplicated; F11.10 Opioid abuse, uncomplicated; F13.10 Sedative, hypnotic or anxiolytic abuse, uncomplicated; Y83.8 Other surgical procedures as the cause of abnormal reaction of the patient, or of later complication, without mention of misadventure at the time of the procedure

== ENCOUNTER 2018-01-15 22:29 | Inpatient (IN) | payer MEDICAID ==
[~2018-01-15] VITALS: Ht 177.8 cm; Wt 74.1 kg
--- NOTE | ~2018-01-15 | HEMODYNAMI ---
PATIENT:ODETTE OH MEDICAL RECORD: [id number] : 64 LOCATION:[address] ADMISSION DATE: 01/15/18 Generatedon:01/20/20188:23 Patient name: ODETTE OH Patient #: [id number] SSN: : 1960 Date of study: Page: Of Hemodynamic Procedure Report Patient Data Patient Demographics First Name: ODETTE Gender: Male Last Name: ADRIANO : 1960 [facility] Initial: L Age: 57 year(s) Patient #: [id number] Race: Black Additional ID: [id number] Contact details Address: [address] [place] [address] State: [place] City: [place] Zip code: [address] Past Medical History Allergies Allergen Reaction Date Comments Reported Other allergy 12/23/2017 Minoxidil Other allergy 01/20/2018 minoxidil Admission Admission Data Admission Date: 01/15/2018 Admission Time: 23:44 Room #: D.2126 Height (in.): 69.69 BSA: 1.91 (m2) Height (cm.): 177 BMI: 23.62 (kg/m2) Weight (lbs.): 163.14 Weight (kg.): 74 Lab Results Lab Result Date: 01/20/2018 Lab Result Time: 0:00 Biochemistry Name Units Result Min Max BUN mg/dl 76 --(----)-* 7 18 Creatinine mg/dl 9.9 --(----)-* 0.6 1.3 CBC Name Units Result Min Max Hemoglobin g/dl 12 *-(----)-- 13.5 17.5 Procedure Procedure Types Cath Procedure Diagnostic Procedure JESSI Procedure Description Procedure Staff Name Function Young Anand MD Performing Physician Sandra Gandhi RT Monitor Puma العلي RN Nurse Sarahy Madrid RT Scrub Pierce Roe MD Additional personnel Procedure Data Cath Procedure Estimated blood loss: 0 ml Procedure Complications No complications Procedure Medications Medication Administration Route Dosage 0.9% NaCl I.V. 30 ml/hr Oxygen etCO2 Nasal cannula 5 l/min Hurricaine [place] P.O. Sprays Refer to Anesthesia Notes for Sedation Medications Hemodynamics Rest BSA: 1.91 (m2) O2 Consumption: Estimated: 259.76 (ml/min) O2 Consumption indexed : Estimated:136 (ml/min/m) Pre Cath Intra NCS Post Cath Vital Signs Time Heart Resp SPO2 etCO2 NIBP (mmHg) Rhythm Pain Sedation Rate (ipm) (%) (mmHg) Status Level (bpm) 7:58:02 71 13 40.6 186/103(163) NSR 0 (11) 10(A) , No pain 8:03:11 72 11 99 32.3 179/99(146) NSR 0 (11) 10(A) , No pain 8:07:54 69 10 99 31.6 150/82(124) NSR 0 (11) 9(A) , No pain 8:13:20 75 34 100 42.1 192/104(161) NSR 0 (11) 9(A) , No pain 8:17:30 76 22 100 40.6 Aborted NSR 0 (11) 9(A) , No pain 8:18:29 77 13 100 39.8 148/90(113) NSR 0 (11) 9(A) , No pain 8:23:10 73 40 100 33.9 163/99(126) NSR 0 (11) 9(A) , No pain Medications Time Medication Route Dose Verified Delivered Reason Notes Effectiv eness by by 8:04:50 Refer to Puma Bartholomew for Anesthesia Zohra العلي sedation Notes for RN RN Sedation Medications 8:05:40 0.9% NaCl I.V. 30 Puma Puma Per ml/hr Zohra العلي physician RN RN 8:05:59 Oxygen etCO2 5 Puma Puma Per Nasal l/min Zohra العلي physician cannula RN RN 8:06:24 Hurricaine P.O. Sprays Puma Bartholomew for local [place] Zohra العلي anesthetic RN complex human resources manager Log Time Note 7:36:08 Patient Height : 69.69 inches 7:36:12 Patient Weight : 163.14 lbs 7:37:00 Lab Result : Hemoglobin 12 g/dl 7:37:00 Lab Result : Creatinine 9.9 mg/dl 7:37:00 Lab Result : BUN 76 mg/dl 7:37:53 Diagnostic Cath status Elective 7:37:56 Puma العلي RN sent for patient. Start room use. 7:37:57 Time tracking: Regular hours (M-F 7:00 - 5:00) 7:38:02 Plan of Care:Hemodynamics will remain stable., Cardiac rhythm will remain stable., Comfort level will be maintained., Respiratory function will remain adequate., Patient/ family verbilizes understanding of procedure., Procedure tolerated without complication., Recovers from procedure without complications.. 7:38:51 Patient received from Med II to CCL 1 Alert and oriented. Tansferred to table in Supine position. 7:38:53 Warm blankets applied, and joe hugger turned on for patient comfort. 7:38:53 Correct patient and procedure confirmed by team. 7:39:57 H&P Date Dictated: 01/15/2018 Within 30 days and on chart.. 7:40:00 Pre-procedure instructions explained to patient. 7:40:02 Family in waiting room. 7:40:04 Patient NPO since Midnight. 7:40:42 Patient allergic to Other allergyminoxidil 7:40:56 Is the patient allergic to Iodine/contrast media? No. 7:41:02 Was the patient premedicated? No 7:54:32 Is patient on blood thinner?No 7:54:41 Patient diabetic? No. 7:54:53 Previous problem with sedation/anesthesia? No ? 7:54:55 Snore? No 7:54:56 Sleep apnea? No 7:55:02 Dentures? No ? 7:55:07 Patient pain scale 0/10 ?. 7:55:20 IV patent on arrival in Rt subclavian with 0.9% NaCl at KVO. 7:55:28 Lab results completed and on chart. 7:55:31 Alarms reviewed by R. N. 7:55:39 Sharps counted by scrub and verified by R.N. 7:55:42 Physician paged 7:57:24 ECG and BP/O2 sat monitors applied to patient. 7:57:25 Vital chart was started 7:57:50 Full Disclosure recording started 8:04:04 --------ALL STOP TIME OUT------ 8:04:05 Final Timeout: patient, procedure, and site verified with staff and physician. All members of the team are in agreement. 8:04:16 Pierce Roe MD Canteen Attendant present for JESSI. 8:04:17 JESSI started. 8:04:50 Refer to Anesthesia Notes for Sedation Medications was administered by Puma العلي RN; for sedation; 8:05:40 0.9% NaCl 30 ml/hr I.V. was administered by Puma العلي RN; Per physician; 8:05:59 Oxygen 5 l/min etCO2 Nasal cannula was administered by Puma العلي RN; Per physician; 8:06:24 Hurricaine [place] Sprays P.O. was administered by Puma العلي RN; for local anesthetic; 8:13:05 JESSI completed. 8:13:19 Procedure ended.(Physican Out) 8:13:39 Post-procedure physical assessment completed. ASA score P 2 - A patient with mild systemic disease as per Young Aannd MD. 8:13:42 Post procedure rhythm: unchanged. 8:13:45 Estimated blood loss: 0 ml 8:13:49 Post procedure instruction explained to patient.Patient verbalizes understanding. 8:13:54 Procedure and supply charges have been captured, reviewed, submitted and are correct. 8:14:11 Procedure Complication : No complications 8:23:07 Vital chart was stopped 8:23:08 See physician's report for complete and final results. 8:23:11 Report given to Med II. 8:23:18 Patient transfered to Med II with Bed. 8:23:22 End room use (Document Last) Signature Audit [place] Stage Time Signature Unsigned Intra-Procedure 01/20/2018 Sandra Gandhi 8:23:45 AM RT(R) Signatures Monitor : Sandra Gandhi Signature : RT Date : Time : [facility] [address] [place] [address]
[2018-01-16 02:33] VITALS: BP 222/127; BMI 25.8
[2018-01-16 04:00] VITALS: BP 162/105
[2018-01-16 08:48] VITALS: BP 171/93
[2018-01-16 11:03] VITALS: BMI 25.8
[2018-01-16 11:46] VITALS: BP 186/117
[2018-01-16 14:09] VITALS: Ht 177.8 cm; Wt 74.1 kg
[2018-01-16 14:42] LABS: HEMATOCRIT 34.6 % (42.0-54.0); HEMOGLOBIN 11.5 g/dL (13.5-17.5); MCH 30.4 pg (26.0-34.0); MCHC 33.2 g/dL (31.0-37.0); MCV 91.5 fL (80.0-100.0); MEAN PLATELET VOLUME 10.7 fL (7.4-10.4); PLATELET COUNT 135 10x3/uL (130-400); RBC 3.78 10x6/uL (4.20-6.10); RDW 18.3 % (11.5-14.5); WBC 7.3 10x3/uL (4.8-10.8)
[2018-01-16 14:50] LABS: APTT 37.8 SECONDS (22.8-39.4); INR 1.13 (0.85-1.17); PROTIME 14.1 SECONDS (11.6-15.0)
[2018-01-16 15:02] LABS: ALBUMIN 2.9 g/dL (3.4-5.0); ANION GAP 24.6 mmol/L (8-16); BILIRUBIN - TOTAL 0.54 mg/dL (0.2-1.3); CARBON DIOXIDE 20.7 mmol/L (21.0-32.0); CREATININE - SERUM 11.7 mg/dL (0.6-1.3); POTASSIUM - SERUM 4.3 mmol/L (3.5-5.1); PROTEIN - SERUM 7.9 g/dL (6.4-8.2)
[2018-01-16 15:11] LABS: CALCIUM 6.7 mg/dL (8.5-10.1)
[2018-01-16 15:25] LABS: UDS - AMPHET NEGATIVE QUAL (NEGATIVE); UDS - BARB NEGATIVE QUAL (NEGATIVE); UDS - BENZO NEGATIVE QUAL (NEGATIVE); UDS - COCAINE POSITIVE QUAL (NEGATIVE); UDS - OPIATE POSITIVE QUAL (NEGATIVE); UDS - PCP NEGATIVE QUAL (NEGATIVE); UDS - THC NEGATIVE QUAL (NEGATIVE)
[2018-01-16 16:00] LABS: APPEARANCE CLEAR (CLEAR); BILIRUBIN NEGATIVE (NEGATIVE); COLOR YELLOW (YELLOW); GLUCOSE NEGATIVE (NEGATIVE); KETONE NEGATIVE (NEGATIVE); NITRITE NEGATIVE (NEGATIVE); PROTEIN 1+ mg/dL (NEGATIVE); SPECIFIC GRAVITY 1.015 (1.005-1.020); UROBILINOGEN NORMAL (NORMAL)
[2018-01-16 16:01] LABS: BACTERIA MODERATE /hpf (NONE SEEN)
[2018-01-16 16:48] VITALS: BP 225/132
[2018-01-16 20:00] VITALS: BP 188/107
[2018-01-17] VITALS: BP 180/99
[2018-01-17 04:00] VITALS: BP 187/118
[2018-01-17 05:28] LABS: BASOPHILS 0.1 % (0-2); EOSINOPHILS 3.3 % (0-7); HEMOGLOBIN 11.5 g/dL (13.5-17.5); IMMATURE GRANULOCYTES 0.1 % (0-5); LYMPHOCYTES 29.9 % (15-50); MCH 29.5 pg (26.0-34.0); MCHC 32.9 g/dL (31.0-37.0); MCV 89.7 fL (80.0-100.0); MEAN PLATELET VOLUME 10.2 fL (7.4-10.4); MONOCYTES 8.5 % (2-11); NEUTROPHILS 58.1 % (40-80); PLATELET COUNT 129 10x3/uL (130-400); WBC 6.7 10x3/uL (4.8-10.8)
[2018-01-17 05:56] LABS: ANION GAP 24.5 mmol/L (8-16); CARBON DIOXIDE 20.1 mmol/L (21.0-32.0); CREATININE - SERUM 12.3 mg/dL (0.6-1.3); POTASSIUM - SERUM 4.6 mmol/L (3.5-5.1)
[2018-01-17 05:57] LABS: CALCIUM 6.9 mg/dL (8.5-10.1)
[2018-01-17 08:11] VITALS: BP 184/97
[2018-01-17 16:14] LABS: HEPATITIS C ANTIBODY >11.0 (0.0-0.9)
[2018-01-17 20:00] VITALS: BP 183/96
[2018-01-18] VITALS (7 sets, daily range): BP systolic 121–211; BP diastolic 72–111
[2018-01-18 06:51] LABS: BASOPHILS 0 % (0-2); EOSINOPHILS 3.1 % (0-7); HEMATOCRIT 34.9 % (42.0-54.0); HEMOGLOBIN 11.4 g/dL (13.5-17.5); IMMATURE GRANULOCYTES 0.2 % (0-5); MCH 29.6 pg (26.0-34.0); MCHC 32.7 g/dL (31.0-37.0); MCV 90.6 fL (80.0-100.0); MEAN PLATELET VOLUME 10.4 fL (7.4-10.4); MONOCYTES 10.6 % (2-11); NEUTROPHILS 64.1 % (40-80); RBC 3.85 10x6/uL (4.20-6.10); WBC 5.8 10x3/uL (4.8-10.8)
[2018-01-18 06:57] LABS: ANION GAP 18.9 mmol/L (8-16); CALCIUM 7.6 mg/dL (8.5-10.1); PHOSPHOROUS 7.4 mg/dL (2.5-4.9); POTASSIUM - SERUM 4.1 mmol/L (3.5-5.1)
[2018-01-18 06:58] LABS: CARBON DIOXIDE 26.2 mmol/L (21.0-32.0); CREATININE - SERUM 9.1 mg/dL (0.6-1.3)
[2018-01-18 07:10] LABS: PLATELET COUNT 101 10x3/uL (130-400)
[2018-01-19 04:00] VITALS: BP 194/101
[2018-01-19 04:22] LABS: BASOPHILS 0.2 % (0-2); EOSINOPHILS 2.2 % (0-7); HEMATOCRIT 37.4 % (42.0-54.0); IMMATURE GRANULOCYTES 0.2 % (0-5); MCH 29.2 pg (26.0-34.0); MCHC 32.1 g/dL (31.0-37.0); MEAN PLATELET VOLUME 10.7 fL (7.4-10.4); MONOCYTES 11.9 % (2-11); NEUTROPHILS 61.5 % (40-80); RBC 4.11 10x6/uL (4.20-6.10); RDW 17.7 % (11.5-14.5); WBC 6.2 10x3/uL (4.8-10.8)
[2018-01-19 04:24] LABS: PLATELET COUNT 123 10x3/uL (130-400)
[2018-01-19 04:50] LABS: ANION GAP 19.4 mmol/L (8-16); CALCIUM 8.5 mg/dL (8.5-10.1); CARBON DIOXIDE 24.1 mmol/L (21.0-32.0); CREATININE - SERUM 9.9 mg/dL (0.6-1.3); PHOSPHOROUS 7.8 mg/dL (2.5-4.9); POTASSIUM - SERUM 4.5 mmol/L (3.5-5.1); VANCOMYCIN - RANDOM 29.2 ug/mL (10.0-20.0)
[2018-01-19 08:18] VITALS: BP 181/94
[2018-01-19 20:00] VITALS: BP 162/82
[2018-01-20] VITALS: BP 170/90
[2018-01-20 04:00] VITALS: BP 158/91
[2018-01-20 06:33] LABS: BASOPHILS 0 % (0-2); EOSINOPHILS 1.4 % (0-7); HEMATOCRIT 39.4 % (42.0-54.0); HEMOGLOBIN 12.7 g/dL (13.5-17.5); IMMATURE GRANULOCYTES 0.3 % (0-5); LYMPHOCYTES 24.3 % (15-50); MCH 29.5 pg (26.0-34.0); MCHC 32.2 g/dL (31.0-37.0); MCV 91.4 fL (80.0-100.0); MEAN PLATELET VOLUME 10.5 fL (7.4-10.4); MONOCYTES 9.9 % (2-11); NEUTROPHILS 64.1 % (40-80); PLATELET COUNT 126 10x3/uL (130-400); RBC 4.31 10x6/uL (4.20-6.10); RDW 17.7 % (11.5-14.5); WBC 7.4 10x3/uL (4.8-10.8)
[2018-01-20 06:54] LABS: ANION GAP 14.1 mmol/L (8-16); CALCIUM 9.1 mg/dL (8.5-10.1); CREATININE - SERUM 7.7 mg/dL (0.6-1.3); POTASSIUM - SERUM 4.3 mmol/L (3.5-5.1); VANCOMYCIN - RANDOM 29.2 ug/mL (10.0-20.0)
[2018-01-20 07:04] LABS: CARBON DIOXIDE 30.2 mmol/L (21.0-32.0)
[2018-01-20 12:30] VITALS: BP 162/84
[2018-01-20 16:43] VITALS: BP 179/95
[2018-01-20 20:00] VITALS: BP 163/80
[2018-01-21 04:00] VITALS: BP 161/83
[2018-01-21 08:04] VITALS: BP 171/100
[2018-01-21 08:08] LABS: BASOPHILS 0.1 % (0-2); EOSINOPHILS 1.3 % (0-7); HEMATOCRIT 39.1 % (42.0-54.0); HEMOGLOBIN 12.8 g/dL (13.5-17.5); IMMATURE GRANULOCYTES 0.1 % (0-5); LYMPHOCYTES 25.3 % (15-50); MCH 29.7 pg (26.0-34.0); MCHC 32.7 g/dL (31.0-37.0); MCV 90.7 fL (80.0-100.0); MEAN PLATELET VOLUME 10.1 fL (7.4-10.4); MONOCYTES 8.3 % (2-11); NEUTROPHILS 64.9 % (40-80); PLATELET COUNT 134 10x3/uL (130-400); RBC 4.31 10x6/uL (4.20-6.10); WBC 7.4 10x3/uL (4.8-10.8)
[2018-01-21 08:22] LABS: ANION GAP 17.2 mmol/L (8-16); CALCIUM 8.7 mg/dL (8.5-10.1); CARBON DIOXIDE 27.3 mmol/L (21.0-32.0); CREATININE - SERUM 9.2 mg/dL (0.6-1.3); PHOSPHOROUS 7.1 mg/dL (2.5-4.9); POTASSIUM - SERUM 4.5 mmol/L (3.5-5.1); VANCOMYCIN - RANDOM 24.9 ug/mL (10.0-20.0)
[2018-01-21 15:58] VITALS: BP 144/89
[2018-01-21 20:00] VITALS: BP 152/93
[2018-01-22] VITALS: BP 146/82
[2018-01-22 04:00] VITALS: BP 131/81
[2018-01-22 06:19] LABS: BASOPHILS 0.1 % (0-2); EOSINOPHILS 1.3 % (0-7); HEMATOCRIT 41.3 % (42.0-54.0); HEMOGLOBIN 13.8 g/dL (13.5-17.5); IMMATURE GRANULOCYTES 0.1 % (0-5); LYMPHOCYTES 23.1 % (15-50); MCH 30.6 pg (26.0-34.0); MCHC 33.4 g/dL (31.0-37.0); MCV 91.6 fL (80.0-100.0); MEAN PLATELET VOLUME 10.7 fL (7.4-10.4); MONOCYTES 9.5 % (2-11); NEUTROPHILS 65.9 % (40-80); PLATELET COUNT 159 10x3/uL (130-400); RBC 4.51 10x6/uL (4.20-6.10); RDW 16.8 % (11.5-14.5); WBC 9.1 10x3/uL (4.8-10.8)
[2018-01-22 06:28] LABS: ANION GAP 15.1 mmol/L (8-16); CARBON DIOXIDE 28.1 mmol/L (21.0-32.0); CREATININE - SERUM 7.8 mg/dL (0.6-1.3); POTASSIUM - SERUM 4.2 mmol/L (3.5-5.1)
[2018-01-22 08:42] VITALS: BP 171/99
[2018-01-22] MEDS ORDERED: NORVASC5 MG PO (11:02)
[2018-01-22] MEDS ORDERED: NICODERM C1 PATCH .1 TRANSDERM (11:02)
[2018-01-22] MEDS ORDERED: ZESTRIL40 MG PO (11:03)
[2018-01-22] MEDS ORDERED: HYDRALAZINE HCL50 MG PO (11:03)
[2018-01-22] MEDS ORDERED: NEPHRO-VITE RX1 TAB PO (11:03)
[2018-01-22] MEDS ORDERED: ROCALTROL0.25 MCG PO (11:04)
[2018-01-22 12:15] VITALS: BP 145/80
[2018-01-22 15:41] VITALS: BP 155/91
== END 2018-01-22 16:11 | disposition home or self-care (01) | DRG 871 ==
LOC: D.M2 22:29 → D.SDCHOLD 01-17 07:27 → D.M2 01-17 07:29
PROVIDERS: Internal Medicine; Internal Medicine Nephrology
DX: A41.9 Sepsis, unspecified organism (principal); N18.6 End stage renal disease; F17.203 Nicotine dependence unspecified, with withdrawal; I12.0 Hypertensive chronic kidney disease with stage 5 chronic kidney disease or end stage renal disease; I16.0 Hypertensive urgency; Z99.2 Dependence on renal dialysis; E78.5 Hyperlipidemia, unspecified; I25.10 Atherosclerotic heart disease of native coronary artery without angina pectoris; K21.9 Gastro-esophageal reflux disease without esophagitis; B19.20 Unspecified viral hepatitis C without hepatic coma; F14.10 Cocaine abuse, uncomplicated; F11.10 Opioid abuse, uncomplicated; Z91.19 Patient's noncompliance with other medical treatment and regimen; I08.3 Combined rheumatic disorders of mitral, aortic and tricuspid valves

== ENCOUNTER 2018-03-14 10:50 | Day surgery (SDC) | payer MEDICAID ==
[~2018-03-14] VITALS: Ht 177.8 cm; Wt 75.8 kg
--- NOTE | ~2018-03-14 | OP ---
PATIENT NAME: ODETTE OH MEDICAL RECORD: [id number] :64 LOCATION:[facility] ADMISSION DATE: SURGEON: BC CHANG MD DATE OF OPERATION: 03/14/2018 REFERRING PHYSICIAN: Paresh Ledezma MD PREOPERATIVE DIAGNOSES: Infected Infusaport and end-stage renal disease, on hemodialysis. POSTOPERATIVE DIAGNOSES: Infected Infusaport and end-stage renal disease, on hemodialysis. OPERATION PERFORMED: Removal of port. SURGEON: Bc Chang MD ANESTHESIA: General with LMA per DRILLER HELPER. PREOPERATIVE NOTE: Mr. Oh is a 57-year-old -French male with end-stage renal disease and a host of medical problems. He has had a port in place on the right side for a number of years and recently has had some septic symptoms. Dr. Ledezma suspects the catheter with the port is infected and the patient is to have it removed today. DESCRIPTION OF PROCEDURE: The patient is quite anxious and unable to tolerate local anesthesia with sedation, requesting general anesthesia. That was administered with LMA per DRILLER HELPER. Then, in supine position, the patient was prepped and draped in a sterile manner. A transverse incision was made over the port, which was in the right infraclavicular space. The port was exposed and removed from the pocket along with the Prolene sutures. The port and the entire attached intact catheter was then removed and hemostasis obtained with direct pressure over the catheter tract. The tip of the catheter was sent for culture. The wound was closed with interrupted inverted 3-0 Vicryl and valeria and a sterile dressing applied. The patient was awakened and in stable condition taken to the recovery room. Blood loss during the operation was insignificant and none was replaced. Sponges, instruments, and needles were accounted for. No drain was used, etc. The patient was given no new prescriptions on discharge, is instructed to use ice and take Tylenol p.r.n. for pain. He is to continue his usual dialysis schedule and regular renal diet and all of his same medications. TRANSINT:[id number] Voice Confirmation ID: [id number] DOCUMENT ID: [id number] BC CHANG MD at 1450 CC: [id number] DICTATION DATE: 03/14/18 1502 EMPLOYMENT EVALUATOR/CASE MANAGER: 03/14/18 1530 [facility] 03/14/18 [facility] [address] [place] [address]
[2018-03-14 10:49] LABS: BASOPHILS 0.2 % (0-2); EOSINOPHILS 0.6 % (0-7); HEMATOCRIT 46.2 % (42.0-54.0); IMMATURE GRANULOCYTES 0.4 % (0-5); MCH 31.6 pg (26.0-34.0); MCHC 32.5 g/dL (31.0-37.0); MCV 97.5 fL (80.0-100.0); MEAN PLATELET VOLUME 11.6 fL (7.4-10.4); NEUTROPHILS 62.8 % (40-80); RBC 4.74 10x6/uL (4.20-6.10)
[~2018-03-14 10:50] MED LIST changes: +NEPHRO-VITE RX1 TAB PO; +NICODERM C1 PATCH .1 TRANSDERM; +NORVASC5 MG PO; +ROCALTROL0.25 MCG PO; +ZESTRIL40 MG PO
[2018-03-14 11:10] LABS: CALCIUM 8.9 mg/dL (8.5-10.1); CARBON DIOXIDE 27.3 mmol/L (21.0-32.0); CREATININE - SERUM 6.7 mg/dL (0.6-1.3); POTASSIUM - SERUM 5.3 mmol/L (3.5-5.1)
[2018-03-14 11:17] LABS: PLATELET COUNT 117 10x3/uL (130-400)
[2018-03-14 11:25] LABS: APTT 38.4 SECONDS (22.8-39.4); INR 1.12 (0.85-1.17)
[2018-03-14 12:01] VITALS: BP 159/89; Ht 177.8 cm; Wt 75.8 kg
== END 2018-03-14 16:52 | disposition home or self-care (01) ==
LOC: D.OPS 10:50
PROVIDERS: Surgery
DX: T80.212A Local infection due to central venous catheter, initial encounter (principal); N18.6 End stage renal disease

== ENCOUNTER 2018-04-21 16:38 | Inpatient (IN) | payer MEDICAID ==
[~2018-04-21] VITALS: Ht 177.8 cm; Wt 69.5 kg
[2018-04-21 18:46] VITALS: BP 244/115
[2018-04-21 19:17] VITALS: BP 201/120
[2018-04-21 20:05] LABS: WBC 7.7 10x3/uL (4.8-10.8)
[2018-04-21 20:06] LABS: BASOPHILS 0.1 % (0-2); EOSINOPHILS 0.3 % (0-7); HEMATOCRIT 46.8 % (42.0-54.0); HEMOGLOBIN 16.4 g/dL (13.5-17.5); LYMPHOCYTES 18.7 % (15-50); MCH 31.2 pg (26.0-34.0); MONOCYTES 7.5 % (2-11); NEUTROPHILS 73.1 % (40-80); RBC 5.26 10x6/uL (4.20-6.10); RDW 14.3 % (11.5-14.5)
[2018-04-21 20:07] LABS: IMMATURE GRANULOCYTES 0.3 % (0-5)
[2018-04-21 20:16] LABS: PLATELET COUNT 83 10x3/uL (130-400)
[2018-04-21 20:33] LABS: UDS - AMPHET NEGATIVE QUAL (NEGATIVE); UDS - BARB NEGATIVE QUAL (NEGATIVE); UDS - BENZO NEGATIVE QUAL (NEGATIVE); UDS - COCAINE POSITIVE QUAL (NEGATIVE); UDS - OPIATE POSITIVE QUAL (NEGATIVE); UDS - PCP NEGATIVE QUAL (NEGATIVE); UDS - THC NEGATIVE QUAL (NEGATIVE)
[2018-04-21 20:42] LABS: PLATELET ESTIMATE DECREASED
[2018-04-21 20:57] LABS: CREATININE - SERUM 16.3 mg/dL (0.6-1.3)
[2018-04-21 21:00] LABS: ANION GAP 27.6 mmol/L (8-16); CALCIUM 7.7 mg/dL (8.5-10.1); CARBON DIOXIDE 13.5 mmol/L (21.0-32.0); POTASSIUM - SERUM 6.1 mmol/L (3.5-5.1)
[2018-04-21 21:01] LABS: ALBUMIN 3.6 g/dL (3.4-5.0); BILIRUBIN - TOTAL 0.65 mg/dL (0.2-1.3); PROTEIN - SERUM 8.3 g/dL (6.4-8.2); TROPONIN-I 0.079 ng/mL (0.000-0.060)
[2018-04-21 21:54] VITALS: BP 228/147
[2018-04-21 22:47] VITALS: BP 225/179
[2018-04-21 23:08] VITALS: BP 179/122
[2018-04-22] VITALS (8 sets, daily range): BP systolic 117–207; BP diastolic 68–124; Ht 177.8 cm; Wt 69.5 kg
[2018-04-22] MEDS ORDERED: NORVASC10 MG PO (00:57)
[2018-04-22] MEDS ORDERED: ISOSORBIDE MONO60 M1 PO (00:58)
[2018-04-22] MEDS ORDERED: HYDRALAZINE HC100 MG PO (00:58)
[2018-04-22] MEDS ORDERED: PRINIVIL20 MG PO (00:59)
[2018-04-22] MEDS ORDERED: CARDURA1 MG PO (01:00)
[2018-04-22] MEDS ORDERED: CATAPRES0.2 MG PO (01:01)
[2018-04-22] MEDS ORDERED: PROTONIX40 MG PO (01:02)
[2018-04-22] MEDS ORDERED: RENAGEL800 MG PO (01:04)
[2018-04-22 06:48] LABS: BASOPHILS 0.2 % (0-2); EOSINOPHILS 0.3 % (0-7); HEMATOCRIT 46.6 % (42.0-54.0); HEMOGLOBIN 16.5 g/dL (13.5-17.5); IMMATURE GRANULOCYTES 0.8 % (0-5); LYMPHOCYTES 9.4 % (15-50); MCH 30.8 pg (26.0-34.0); MCHC 35.4 g/dL (31.0-37.0); MEAN PLATELET VOLUME 10.8 fL (7.4-10.4); MONOCYTES 11.6 % (2-11); NEUTROPHILS 77.7 % (40-80); PLATELET COUNT 94 10x3/uL (130-400); RBC 5.36 10x6/uL (4.20-6.10); RDW 14.6 % (11.5-14.5)
[2018-04-22 06:51] LABS: MCV 86.9 fL (80.0-100.0); WBC 9.8 10x3/uL (4.8-10.8)
[2018-04-22 07:46] LABS: ANION GAP 28.3 mmol/L (8-16); CALCIUM 7.9 mg/dL (8.5-10.1); CARBON DIOXIDE 16.4 mmol/L (21.0-32.0)
[2018-04-22 07:47] LABS: CREATININE - SERUM 11.8 mg/dL (0.6-1.3); POTASSIUM - SERUM 4.7 mmol/L (3.5-5.1)
[2018-04-23] VITALS: BP 141/78
[2018-04-23 04:00] VITALS: BP 121/76
[2018-04-23 07:00] VITALS: BP 123/69
[2018-04-23 12:00] VITALS: BP 120/87
[2018-04-25 03:11] LABS: HEPATITIS C ANTIBODY >11.0 (0.0-0.9)
== END 2018-04-23 14:45 | disposition home or self-care (01) | DRG 640 ==
LOC: D.ER 16:38 → D.EDHOLD 22:37 → D.M2 04-22 00:14
PROVIDERS: Emergency Medicine; Family Medicine; Internal Medicine Nephrology
PROC: 5A1D70Z Performance of Urinary Filtration, Intermittent, Less than 6 Hours Per Day (ICD-10-PCS; principal; 2018-04-22)
DX: E87.5 Hyperkalemia (principal); N18.6 End stage renal disease; I13.2 Hypertensive heart and chronic kidney disease with heart failure and with stage 5 chronic kidney disease, or end stage renal disease; I50.9 Heart failure, unspecified; Z99.2 Dependence on renal dialysis; Z91.15 Patient's noncompliance with renal dialysis; F14.90 Cocaine use, unspecified, uncomplicated; F11.90 Opioid use, unspecified, uncomplicated; K75.9 Inflammatory liver disease, unspecified; I25.10 Atherosclerotic heart disease of native coronary artery without angina pectoris

== ENCOUNTER 2018-05-23 14:18 | Inpatient (IN) | payer MEDICAID ==
[~2018-05-23] VITALS: Ht 177.8 cm; Wt 87.7 kg
[2018-05-23] VITALS (9 sets, daily range): BP systolic 152–203; BP diastolic 85–127; BMI 27.4
--- NOTE | ~2018-05-23 | DS ---
PATIENT:ODETTE OH :64 MEDICAL RECORD: [id number] DISCHARGE SUMMARY ADMISSION DATE: 05/23/18 DISCHARGE DATE: 06/02/18 HISTORY OF PRESENT ILLNESS: Mr. Oh is a 57-year-old black male, long-term drug addiction with poor medication and dietary and dialysis compliance, not seen in the dialysis unit in the past few months. Apparently, he has missed his most recent dialysis within the past few weeks. In the Emergency Room, semicomatose with a positive drug screen for cocaine and a swollen and edematous left arm. HOSPITAL COURSE: The patient had a temporary dialysis catheter placed and underwent daily dialysis, followed by his resumption of his routine dialysis and his mental status and electrolyte abnormalities improved. He was begun on antibiotic therapy. Venous Doppler was positive for thrombosis of his left axilla, was begun on heparin therapy. His arm did improve, although it never returned back to baseline. He has known history of subclavian vein stenosis, which he has declined approach for in the past. With improvement in his condition, he was transferred to the floor and eventually taken to the interventional suite where a fistulogram revealed an innominate vein stenosis that underwent STAKE DRIVER by interventional radiology. A stent could not be placed due to the presence of the temporary dialysis catheter. Post-STAKE DRIVER, his arm was improved. It was not back to normal, so we will leave his current catheter in and observe improvement in his arm over time. He was tapered off heparin and begun on Eliquis therapy and will remain on Eliquis for the time being. At the time of discharge, he was back to baseline. He declines group home placement. DISCHARGE DIAGNOSES: 1. Acute thrombosis of left dialysis access arm requiring anticoagulant therapy. 2. Left innominate vein stenosis requiring angioplasty. 3. Chronic drug addiction, primarily cocaine. 4. End-stage renal disease. 5. Severe dietary and medical noncompliance. 6. Hypertension. PLAN: The patient will be discharged today. He will be in [facility] on Tuesday. He will dialyze today. He will leave his catheter in and see how his arm improves. He declines group home placement. DISCHARGE MEDICATIONS: Hydralazine 100 q.8 hours, doxazosin 4 mg q.8 hours, clonidine 0.2 q.8 hours, Eliquis 2.5 b.i.d., MiraLax p.r.n., Senokot p.r.n., acidophilus 1 daily, multivitamin 1 daily, Protonix 40 mg q.12 hours, erythropoietin 6000 daily, PhosLo 2 t.i.d., Calcitriol 0.25 b.i.d., amlodipine 10 mg daily, isosorbide 60 daily. TRANSINT:[id number] Voice Confirmation ID: [id number] DOCUMENT ID: [id number] DISCHARGE SUMMARY REPORT [id number] ODETTE OH, JAYDE GOMEZ at 0613 CC: [id number] DICTATION DATE: 06/02/18803 TV PRODUCTION ASSISTANT: 06/02/18822 DIS IN 06/02/18 [address] [place] [address]
--- NOTE | ~2018-05-23 | OP ---
PATIENT NAME: ODETTE OH MEDICAL RECORD: [id number] :64 LOCATION:D.M2 D.2135 ADMISSION DATE:05/23/18 SURGEON: JAYDE GAN MD DATE OF OPERATION: 05/23/2018 PREOPERATIVE DIAGNOSES: 1. Swollen left upper extremity to the point where it cannot be used for hemodialysis access. 2. End-stage renal disease without access for hemodialysis. 3. No peripheral IV access available and IV access was not even available for blood draws. POSTOPERATIVE DIAGNOSES: 1. Swollen left upper extremity to the point where it cannot be used for hemodialysis access. 2. End-stage renal disease without access for hemodialysis. 3. No peripheral IV access available and IV access was not even available for blood draws. PROCEDURE: Laparoscopic neck Trialysis catheter placement. SURGEON: Jayde Gan MD EXERCISE INSTRUCTOR: None. BLOOD LOSS: Less than 25 cc. ANESTHESIA: Local. COMPLICATIONS: None. The patient was combative during this procedure. It made the procedure more difficult. The entire procedure was performed in the presence of a nurse. OPERATIVE COURSE: The patient was seen in the Emergency Room emergently. The patient was positioned in the Trendelenburg position. The right neck was sterilely prepped and draped. A local anesthetic was used to infiltrate the skin and subcutaneous tissues at the base of right neck. Right internal jugular vein was percutaneously accessed in an antegrade fashion. The guidewire would not thread, and the patient was thrashing about and IV access was lost. I then approached the right subclavian vein utilizing a supraclavicular subclavian antegrade approach. The guidewire was passed easily. A small skin danny was accomplished. A vessel dilator was used to dilate a subcutaneous tract. A short Trialysis catheter was inserted to the hub. It was sutured in place times 3. All lumens flushed easily and aspirated dark, nonpulsatile blood. A stat portable chest x-ray is pending. I instructed the nursing staff that they could begin using the Trialysis catheter immediately. The patient was already developing a hematoma at the right neck. TRANSINT:[id number] Voice Confirmation ID: [id number] DOCUMENT ID: [id number] OPERATIVE REPORT [id number] ODETTE OH JAYDE GAN MD at 1008 CC: BC CHANG and JAYDE METZGER MD [id number] DICTATION DATE: 05/23/182116 FINISH MIXER: 05/24/[address] [facility] [address] [id number]
--- NOTE | ~2018-05-23 | MORECARE ---
CASE MANAGEMENT DISCHARGE SUMMARY PATIENT: ODETTE OH UNIT: [id number] ADM DATE: 05/23/18 AGE: 57 : 64 SEX: M ROOM/BED: D.2131 AUTHOR: ETHAN MAHONEY PHYSICIAN: REFERRING PHYSICIAN: LEONA ALCANTAR MD DATE OF SERVICE: 06/01/18 Discharge Plan Patient Name: ODETTE OH Facility: [facility]:[place] : 1960 Planned Disposition: Home or Self Care Anticipated Discharge Date: Discharge Date: Expected LOS: Initial Reviewer: [email or web address] Initial Review Date: 05/24/2018 Generated: 06/01/18 5:15 pm Comments DCP- Discharge Planning Updated by [email or web address]: Jeff Christopher on 06/01/18 3:[address] Patient Name: ODETTE OH Encounter No: [id number] : 1960 Primary Insurance: MEDICAID [place] Anticipated DC Date: Planned Disposition: Home or Self Care DCP follow-up note: CM RECEIVED ORDER FOR DISCHARGE PLANNING BACK TO SENIOR LIVING OR REHAB. PT WAS NOT IN ROOM AT 1415 HOURS OR 1400 HOURS. CM TO FOLLOW UP WITH PT SOON POSSIBLE WHEN HE IS RETURNED TO ROOM AFTER DIALYSIS FOR DISCHARGE PLANNING. SUSI Farmer DCP- Discharge Planning Updated by [id number]: Sonia Barrera on 05/24/18 4:[address] Patient Name: ODETTE OH Admission Status: ER Accout number: [id number] Admission Date: 05-23-2018 : 1960 Admission Diagnosis: Attending: Leona Alcantar Current LOS: 1 Anticipated DC Date: Planned Disposition: Home or Self Care Primary Insurance: MEDICAID [place] Discharge Planning Comments: CM met with patient at bedside after obtaining verbal consent. Patient states he plans on returning to his friends home after discharge. Patient is hemodialysis patient in [place] and has dialysis MWF @10:30. Patient denies any discharge needs at this time. CM will continue to follow and assist as needed for discharge planning / needs. Well Head Pumper: Sonia Barrera DCPIA - Discharge Planning Initial Assessment Updated by [email or web address]: Sonia Barrera on 05/24/18 5:34 pm * Is the patient Alert and Oriented? Yes * PCP Dr. Tompkins * Pharmacy [facility] * Preadmission Environment Homeless * Other Environment states he was staying with a friend * ADLs Independent * Equipment None * List name and contact numbers for known caregivers / representatives who currently or will assist patient after discharge: Matt warder [phone] * Community resources currently utilized None * Additional services required to return to the preadmission environment? No * Can the patient safely return to the preadmission environment? Yes * Has this patient been hospitalized within the prior 30 days at any hospital? Yes Last DP export: 05/24/18 4:46 Patient Name: ODETTE OH Page 13436 at 1615 All edits/amendments must be made on the electronic document DICTATION DATE: 06/01/181614 ELEMENTARY READING SPECIALIST: [facility] 06/01/181614 RPT#: [id number] DC DATE: STATUS: ADM IN [facility] [address] [place] [address] END OF REPORT
--- NOTE | ~2018-05-23 | MORECARE ---
CASE MANAGEMENT DISCHARGE SUMMARY PATIENT: ODETTE OH UNIT: [id number] ADM DATE: 05/23/18 AGE: 57 : 64 SEX: M ROOM/BED: D.2131 AUTHOR: ETHAN MAHONEY PHYSICIAN: REFERRING PHYSICIAN: LEONA ALCANTAR MD DATE OF SERVICE: 06/01/18 Discharge Plan Patient Name: ODETTE OH Facility: [facility]:[place] : 1960 Planned Disposition: Home or Self Care Anticipated Discharge Date: 06/02/18 Discharge Date: Expected LOS: 10 Initial Reviewer: [email or web address] Initial Review Date: 05/24/2018 Generated: 06/01/18 5:37 pm Comments DCP- Discharge Planning Updated by [email or web address]: Jeff Christopher on 06/01/18 3:[address] Patient Name: ODETTE OH Encounter No: [id number] : 1960 Primary Insurance: MEDICAID [place] Anticipated DC Date: Planned Disposition: Home or Self Care DCP follow-up note: CM RECEIVED ORDER FOR DISCHARGE PLANNING BACK TO ALF OR REHAB. PT WAS NOT IN ROOM AT 1415 HOURS OR 1400 HOURS. CM TO FOLLOW UP WITH PT SOON POSSIBLE WHEN HE IS RETURNED TO ROOM AFTER DIALYSIS FOR DISCHARGE PLANNING. SUSI Farmer DCP- Discharge Planning Updated by [email or web address]: Sonia Barrera on 05/24/18 4:[address] Patient Name: ODETTE OH Admission Status: ER Accout number: [id number] Admission Date: 05-23-2018 : 1960 Admission Diagnosis: Attending: Leona Alcantar Current LOS: 1 Anticipated DC Date: Planned Disposition: Home or Self Care Primary Insurance: MEDICAID [place] Discharge Planning Comments: CM met with patient at bedside after obtaining verbal consent. Patient states he plans on returning to his friends home after discharge. Patient is hemodialysis patient in [place] and has dialysis MWF @10:30. Patient denies any discharge needs at this time. CM will continue to follow and assist as needed for discharge planning / needs. Hairspring Staker: Sonia Barrera DCPIA - Discharge Planning Initial Assessment Updated by [email or web address]: Sonia Barrera on 05/24/18 5:34 pm * Is the patient Alert and Oriented? Yes * PCP Dr. Tompkins * Pharm[facility] * Preadmission Environment Homeless * Other Environment states he was staying with a friend * ADLs Independent * Equipment None * List name and contact numbers for known caregivers / representatives who currently or will assist patient after discharge: Matt warder [phone] * Community resources currently utilized None * Additional services required to return to the preadmission environment? No * Can the patient safely return to the preadmission environment? Yes * Has this patient been hospitalized within the prior 30 days at any hospital? Yes Last DP export: 06/01/18 3:15 Patient Name: ODETTE OH Page [id number] at 1637 All edits/amendments must be made on the electronic document DICTATION DATE: 06/01/181635 MOTION PICTURE PROJECTIONIST: [facility] 06/01/181635 RPT#: [id number] DC DATE: STATUS: ADM IN [facility] [address] [place] [address] END OF REPORT
--- NOTE | ~2018-05-23 | MORECARE ---
CASE MANAGEMENT DISCHARGE SUMMARY PATIENT: ODETTE OH UNIT: [id number] ADM DATE: 05/23/18 AGE: 57 : 64 SEX: M ROOM/BED: D.2131 AUTHOR: ETHAN MAHONEY PHYSICIAN: REFERRING PHYSICIAN: LEONA ALCANTAR MD DATE OF SERVICE: 06/02/18 Discharge Plan Patient Name: ODETTE OH Facility: [facility]:[place] : 1960 Planned Disposition: Home or Self Care Anticipated Discharge Date: 06/02/18 Discharge Date: Expected LOS: 10 Initial Reviewer: [email or web address] Initial Review Date: 05/24/2018 Generated: 06/02/18 4:32 pm Comments DCP- Discharge Planning Updated by [email or web address]: Jeff Hedrick on 06/02/18 2:[address] Patient Name: ODETTE OH Encounter No: [id number] : 1960 Primary Insurance: MEDICAID [place] Anticipated DC Date: 06-02-2018 Planned Disposition: Home or Self Care DCP follow-up note: CM SPOKE TO BEDSIDE NURSE WHO INFORMED CM THAT PT IS NOT ABLE TO FIND TRANSPORTATION HOME AND ASKED FOR MEDICAID TRANSPORTATION. CM CALLED MEDICAID TRANSPORTATION, , SPOKE TO KIM AND SCHEDULED TRANSPORT HOME AT OR AFTER 1545 HOURS, CONFIRMATION # [id number]. PT AND RETAIL PHARMACY TECHNICIAN NURSE NOTIFIED. PT DENIES FURTHER DISCHARGE NEEDS. MEDICAID TRANSPORT TO [facility] PT AT OR AFTER 1545 HOURS TODAY. VAN TO [facility] AT FRONT ENTRANCE, ASSISTANT GOLF COURSE SUPERINTENDENT TO CALL [facility] 2 NURSES STATION WHEN DOWNSTAIRS TO [facility] PT. FOR TRANSPORT ISSUES, CALL [facility] AT [phone]. Jeff Hedrick, CASE MANAGEMENT DCP- Discharge Planning Updated by [email or web address]: Jeff Hedrick on 06/01/18 3:[address] Patient Name: ODETTE OH Encounter No: [id number] : 1960 Primary Insurance: MEDICAID [place] Anticipated DC Date: 06-02-2018 Planned Disposition: Home or Self Care DCP follow-up note: CM RECEIVED ORDER FOR DISCHARGE PLANNING BACK TO CUSTODIAL OR REHAB. CM MET WITH PT IN ROOM AFTER RETURN FROM DIALYSIS. CM DISCUSSED DISCHARGE PLANNING, ATTEMPTED TO DISCUSS AVAILABILITY OF REHAB SERVICES, HOME HEALTH AND MEDICAL EQUIPMENT. PT REPORTS "NO" HE IS NOT GOING TO REHAB OR A CUSTODIAL. PT REPORTS HE JUST GOT OUT OF [facility] THREE MONTHS AGO, THE CUSTODIAL TAKES HIS MONEY AND GIVES HIM ONLY $30. PT REPORTS HAVING WHAT HE NEEDS AT HOME WITH HIS FAMILY. PT REPORTS HIS COUSIN WILL PICK HIM UP FOR DISCHARGE. PT STATES THAT IF HE CANNOT GET HIS COUSIN, HE WILL NOTIFY CM TO CALL [facility] BUS TO GET HIM HOME. CM EXPLAINED THAT IF PT DISCHARGES ON WEEKEND, MEDICAID TRANSPORT DOES NOT PROVIDE SERVICES. PT STATES HE HAS BEEN "DOING THIS FOR A WHILE" AND KNOWS "HOW THINGS WORK." CM PROVIDED PT WITH CM PHONE NUM[facility] SUPER[facility]OR STRIPPING NUMBER. PT REFUSES CUSTODIAL PLACEMENT, DENIES NEED OF HOME HEALTH / REHAB SERVICES. REPORTS PLAN TO DISCHARGE HOME WITH FAMILY, DENIES NEEDS. PT DENIES DISCHARGE NEEDS AT THIS TIME AND WILL NOTIFY CM IF HE NEEDS ASSISTANCE WITH SETTING UP SCAT BUS TO GET HOME AT DISCHARGE IF HE IS NOT ABLE TO FIND FAMILY MEMBER TO PICK HIM UP JEFF HEDRICK CASE MANAGEMENT. DCP- Discharge Planning Updated by [email or web address]: Jeff Hedrick on 06/01/18 3:[address] Patient Name: ODETTE OH Encounter No: [id number] : 1960 Primary Insurance: MEDICAID [place] Anticipated DC Date: Planned Disposition: Home or Self Care DCP follow-up note: CM RECEIVED ORDER FOR DISCHARGE PLANNING BACK TO CUSTODIAL OR REHAB. PT WAS NOT IN ROOM AT 1415 HOURS OR 1400 HOURS. CM TO FOLLOW UP WITH PT SOON POSSIBLE WHEN HE IS RETURNED TO ROOM AFTER DIALYSIS FOR DISCHARGE PLANNING. Jeff Hedrick CASE MANAGEMENT DCP- Discharge Planning Updated by [email or web address]: Sonia Barrera on 05/24/18 4:[address] Patient Name: ODTETE OH Admission Status: ER Accout number: [id number] Admission Date: 05-23-2018 : 1960 Admission Diagnosis: Attending: Leona Alcantar Current LOS: 1 Anticipated DC Date: Planned Disposition: Home or Self Care Primary Insurance: MEDICAID [place] Discharge Planning Comments: CM met with patient at bedside after obtaining verbal consent. Patient states he plans on returning to his friends home after discharge. Patient is hemodialysis patient in [place] and has dialysis MWF @10:30. Patient denies any discharge needs at this time. CM will continue to follow and assist as needed for discharge planning / needs. Rolfer: Sonia PIMENTEL - Discharge Planning Initial Assessment Updated by [email or web address]: Sonia Barrera on 05/24/18 5:34 pm * Is the patient Alert and Oriented? Yes * PCP Dr. Tompkins * [facility] * Preadmission Environment Homeless * Other Environment states he was staying with a friend * ADLs Independent * Equipment None * List name and contact numbers for known caregivers / representatives who currently or will assist patient after discharge: Matt Reynolds brother [phone] * Community resources currently utilized None * Additional services required to return to the preadmission environment? No * Can the patient safely return to the preadmission environment? Yes * Has this patient been hospitalized within the prior 30 days at any hospital? Yes Last DP export: 06/01/18 3:45 Patient Name: ODETTE OH Page [id number] at 1532 All edits/amendments must be made on the electronic document DICTATION DATE: 06/02/18 1531 HOG SAWYER: [facility] 06/02/18 1531 RPT#: [id number] [place] DATE: STATUS: ADM IN [facility] [address] [place] [address] END OF REPORT
--- NOTE | ~2018-05-23 | HEMODYNAMI ---
PATIENT:ODETTE OH MEDICAL RECORD: [id number] : 64 LOCATION:[place] [address] ADMISSION DATE: 05/23/18 Generatedon:05/31/201814:35 Patient name: ODETTE OH Patient #: [id number] SSN: : Date of study: 05/31/2018 Page: Of Hemodynamic Procedure Report Patient Data Patient Demographics Procedure consent was obtained First Name: ODETTE Gender: Male Last Name: ADRIANO : 1960 [facility] Initial: L Age: 57 year(s) Patient #: [id number] Race: Black Additional ID: [id number] Contact details [address]: [address] [place] [address] State: [place] City: [place] Zip code: [address] Past Medical History Allergies Allergen Reaction Date Comments Reported Other allergy 12/23/2017 Minoxidil Other allergy 01/20/2018 minoxidil Admission Admission Data Admission Date: 05/23/2018 Admission Time: 21:30 Room #: [facility] Height (in.): 70 BSA: 2 (m2) Height (cm.): 177.8 BMI: 25.97 (kg/m2) Weight (lbs.): 181 Weight (kg.): 82.1 Procedure Procedure Types Cath Procedure Peripheral Cath Diagnostic Procedure Silk Screen Cutter Peripheral Procedures Fistula Fistulagram Single Access Procedure Description Procedure Date Procedure Date: 05/31/2018 Procedure Start Time: 13:16 Procedure Staff Name Function Mindi Zamudio RT Commodity Management Specialist Odette Dooley RT Scrub Fortino Morris MD Performing Physician Radha Saenz RN Nurse Procedure Data Cath Procedure Fluoroscopy Diagnostic fluoroscopy Total fluoroscopy Time: 7.3 time: 7.3 min min Diagnostic fluoroscopy Total fluoroscopy dose: 221 dose: 221 mGy mGy Contrast Material Contrast Material Type Amount (ml) Isovue 300 225 Procedure Medications Medication Administration Route Dosage Heparin Flush Bag added to field 2 bags (1000units/500ml NS) Lidocaine 1% added to field 20 Versed I.V. 2 mg Fentanyl I.V. 100 mcg Heparin Flush Bag added to field 1 bags (1000units/500ml NS) Hemodynamics Rest BSA: 2 (m2) O2 Consumption: Estimated: 237.82 (ml/min) O2 Consumption indexed: E stimated:118.91 (ml/min/m) Heart Rate: 71 (bpm) Snapshots Pre Cath Intra NCS Post Cath Vital Signs Time Heart Resp SPO2 etCO2 NIBP (mmHg) Rhythm Pain Sedation Rate (ipm) (%) (mmHg) Status Level (bpm) 12:54:49 85 13 100 14.4 157/81(123) NSR 0 (11) 10(A) , No pain 12:59:20 80 13 100 22.8 146/85(119) NSR 0 (11) 10(A) , No pain 13:03:46 82 9 100 15.9 153/84(120) NSR 0 (11) 10(A) , No pain 13:08:19 82 14 99 0 153/80(118) NSR 0 (11) 10(A) , No pain 13:12:49 79 11 0 153/80(118) NSR 0 (11) 10(A) , No pain 13:17:17 83 5 0 158/85(126) NSR 0 (11) 10(A) , No pain 13:21:46 80 12 0 155/92(124) NSR 0 (11) 10(A) , No pain 13:26:16 79 11 100 0 157/81(123) NSR 0 (11) 10(A) , No pain 13:30:46 80 16 100 0 155/84(120) NSR 0 (11) 10(A) , No pain 13:35:17 79 11 97 0 154/83(121) NSR 0 (11) 10(A) , No pain 13:39:47 78 14 97 0 150/81(123) NSR 0 (11) 10(A) , No pain 13:44:18 78 13 96 0 159/83(118) NSR 0 (11) 10(A) , No pain 13:48:54 78 15 94 0 156/83(120) NSR 0 (11) 10(A) , No pain 13:53:26 79 14 94 0 162/88(130) NSR 0 (11) 10(A) , No pain 13:58:01 77 13 97 0 157/87(126) NSR 0 (11) 10(A) , No pain 14:02:31 77 12 97 0 163/86(124) NSR 0 (11) 10(A) , No pain 14:07:06 76 12 95 0 164/83(129) NSR 0 (11) 10(A) , No pain 14:11:40 79 15 97 0 162/85(126) NSR 0 (11) 10(A) , No pain 14:16:10 79 13 99 0 168/91(128) NSR 0 (11) 10(A) , No pain 14:20:45 80 17 97 0 169/88(130) NSR 0 (11) 10(A) , No pain 14:25:24 80 13 100 1.5 171/85(132) NSR 0 (11) 10(A) , No pain 14:30:02 77 15 0 165/85(134) NSR 0 (11) 10(A) , No pain 14:34:02 0 No Cuff NSR 0 (11) 10(A) , No pain Medications Time Medication Route Dose Verified Delivered Reason Notes Effec tiveness by by 13:07:24 Heparin Flush added 2 Fortino Freitas used for Bag to bags Morris Morris procedure (1000units/500ml field MD GOMEZ NS) 13:07:37 Lidocaine 1% added 20ml Fortino Freitas used for to vial Morris Morris procedure field MD GOMEZ 13:19:44 Versed I.V. 2 mg Fortino Garcia for Morris Dany RN sedation 13:19:58 Fentanyl I.V. 100 Fortino Garcia for mcg Morris Dany RN sedation 13:23:26 Heparin Flush added 1 Fortino Garcia used for Bag to bags Morris Dany barkeep (1000units/500ml field GOMEZ NS) Procedure Log Time Note 12:44:06 Patient Height : 70 inches 12:44:12 Patient Weight : 181 lbs 12:44:18 Time tracking: Regular hours (M-F 7:00 - 5:00) 12:45:08 Patient received from Med II to IR Alert and oriented. Tansferred to table in Supine position. 12:45:10 Correct patient and procedure confirmed by team. 12:45:13 Signed procedure consent form obtained from patient. 12:45:18 H&P Date Dictated: 05/31/2018 Within 30 days and on chart.. 12:45:20 Pre-procedure instructions explained to patient. 12:45:21 Pre-op teaching completed and patient verbalized understanding. 12:45:23 Family unavailable. 12:45:26 Patient NPO since Midnight. 12:45:41 Is the patient allergic to Iodine/contrast media? No. 12:45:52 Is patient on blood thinner?No 12:45:55 Patient diabetic? No. 12:45:59 - 12:46:00 ----Pre-sedation anethsthesia assessment.---- 12:46:03 Previous problem with sedation/anesthesia? No ? 12:46:06 Snore? Yes 12:46:08 Sleep apnea? No 12:46:10 Deviated septum? No 12:46:12 Opens mouth fully? Yes 12:46:14 Sticks out tongue? Yes 12:46:19 Airway obstruction? Yes chf 12:46:24 Dentures? Yes ? 12:50:23 IV patent on arrival in right IJ with D5/.45%NaCl at KVO. 12:50:30 Left Arm area was prepped with chlora-prep and draped in sterile fashio n 12:50:39 Use device set IR Diagnostic 12:50:40 Tegaderm 4 x 4 (1626W) opened to sterile field. 12:50:42 Sterile Angiographic Pack opened to sterile field. 12:50:43 Bag Decanter (2002S) opened to sterile field. 12:53:18 ECG and BP/O2 sat monitors applied to patient. 12:53:19 Vital chart was started 12:53:27 Baseline sample Acquired. 12:53:34 Baseline sample Acquired. 12:53:39 Full Disclosure recording started 12:53:41 - 13:02:33 DILATOR, VESSEL 4/20 opened to sterile field. 13:07:24 Heparin Flush Bag (1000units/500ml NS) 2 bags added to field was administered by Fortino Morris MD; used for procedure; 13:07:37 Lidocaine 1% 20ml vial added to field was administered by Fortino Morris MD; used for procedure; 13:12:53 DOC .035 wire (B62303) opened to sterile field. 13:15:40 Physician arrived 13:16:22 --------ALL STOP TIME OUT------ 13:16:22 Final Timeout: patient, procedure, and site verified with staff and physician. All members of the team are in agreement. 13:16:30 Procedure started. 13:16:37 Local anesthetic to left arm with Lidocaine 1% by Fortino Morris MD.INITIAL ACCESS ONLY 13:18:13 PERCUTANEOUS ENTRY 19GA needle opened to sterile field. 13:19:44 Versed 2 mg I.V. was administered by Radha Saenz RN; for sedation; 13:19:58 Fentanyl 100 mcg I.V. was administered by Radha Saenz RN; for sedation; 13:23:26 Heparin Flush Bag (1000units/500ml NS) 1 bags added to field was administered by Radha Saenz RN; used for procedure; 13:30:31 ACIST Manifold (98416) opened to sterile field. 13:30:32 ACIST Hand Control (59160) opened to sterile field. 13:30:33 ACIST Syringe (24824) opened to sterile field. 13:30:44 TUBING Contrast Injection High Pressure (NGU262T) opened to sterile field. 13:30:47 TUBING Contrast Injection High Pressure (NEC925W) opened to sterile field. 13:32:21 GLIDE CATHETER 5FR ANGLED 65cm (CG507) opened to sterile field. 13:36:09 GLIDE WIRE ANGLE 180cm (TR4730) opened to sterile field. 13:36:20 TORQUE DEVICE PLASTIC .038 ( TD01) opened to sterile field. 13:38:48 GLIDE CATHETER 5FR ANGLED 100cm (CG508) opened to sterile field. 13:43:42 INFLATOR BasixTOUCH (GJ7370) opened to sterile field. 13:45:02 St Jose 7FR sheath opened to sterile field. 13:45:19 PEDRAZA 260 wire (S55636) opened to sterile field. 13:47:31 Inflate balloon Inflation number: 1 A Evercross 8 x 4 x 135 Balloon ([id number]) was prepped and advanced across the Undefined1, then inflated to 0 LYDIA for 0:00 (min:sec). 14:04:42 Inflate balloon Inflation number: 2 A Evercross 12 x 40 x 135 ([id number]) was prepped and advanced across the Undefined1, then inflated to 0 LYDIA for 0:00 (min:sec). 14:17:57 Procedure ended.(Physican Out) 14:18:35 Fluoroscopy time 07.30 minutes. 14:18:46 Flurop Dose total: 221 14:18:46 Fluoroscopy dose: 221 mGy 14:19:22 Contrast amount:Isovue 300 225ml. 14:20:01 Procedure and supply charges have been captured, reviewed, submitted an d are correct. 14:21:15 Report given to [facility] II. 14:35:30 Vital chart was stopped Intervention Summary Intervention Notes Time ActionType Lesion and Equipment Used Action# Pressure Duration Attributes 13:47:31 Inflate Undefined1 Evercross 8 x 4 1 0 00:00 balloon x 135 Balloon ([id number]) 14:04:42 Inflate Undefined1 Evercross 12 x 2 0 00:00 balloon 40 x 135 ([id number]) Device Usage Item Name Manufacture Quantity Catalog Number Hospital Part Current M inimal Lot# / Charge Number Stock Stock Serial# Code Tegaderm 4 x 4 3M 1 1626W 352149 584050 185475 5 (1626W) Sterile Cardinal 1 [id number] 120110 316673 5 Angiographic Health Pack Bag Decanter Microtek 1 040798 50459 285869 5 () Medical Inc. DILATOR, VESSEL Cook Medical 1 E71168 725828 58169 066281 5 [id number] 12/02 DOC .035 wire Cook Medical 1 P31992 688622 776607 5 (G47103) PERCUTANEOUS Cook Medical 1 A06744 816701 760714 5 ENTRY 19GA needle ACIST Manifold Acist 1 47031 187947 496812 301827 5 (62643) Medical Systems Inc ACIST Hand Acist 1 46654 640182 230140 131015 5 Control (33714) Medical Systems Inc ACIST Syringe Acist 1 36907 393695 257153 846337 2 0 (46637) Medical Systems Inc TUBING Contrast Merit 2 [id number] 043929 521929 415930 5 Injection High Medical Pressure ([id number]) GLIDE CATHETER Terumo 1 CG507 288903 938515 5 5FR ANGLED 65cm (CG507) GLIDE WIRE Terumo 1 WJ2468 836013 772708 111112 5 ANGLE 180cm (TC2875) TORQUE DEVICE [place] 1 TD01 931224 703548 831307 5 PLASTIC .038 ( Scientific TD01) GLIDE CATHETER Terumo 1 CG508 604868 24875 410358 4 5FR ANGLED 100cm (CG508) INFLATOR Merit 1 ZL1318 722259 010199 958459 5 Integrated Development Enterprise Medical (JA1817) St Jose 7FR St Jose 1 523651 498591 129408 5 7769449 sheath PEDRAZA 260 wire Cook Medical 1 R51053 992334 25889 344512 5 4361191 (S46840) Evercross 8 x 4 Medtronic 1 [id number] 598513 625726 145671 5 [id number] x 135 Balloon ([id number]) Evercross 12 x Medtronic 1 [id number] 463127 014452 658462 5 [id number] 40 x 135 ([id number]) Signature Audit [place] Stage Time Signature Unsigned Intra-Procedure 05/31/2018 Mindi Zamudio 2:35:26 PM RT(R) [place] [address] [place] [address]
--- NOTE | ~2018-05-23 | MORECARE ---
CASE MANAGEMENT DISCHARGE SUMMARY PATIENT: ODETTE OH UNIT: [id number] ADM DATE: 05/23/18 AGE: 57 : 64 SEX: M ROOM/BED: D.2131 AUTHOR: ETHAN MAHONEY PHYSICIAN: REFERRING PHYSICIAN: LEONA ALCANTAR MD DATE OF SERVICE: 06/01/18 Discharge Plan Patient Name: ODETTE OH Facility: [facility]:[place] : 1960 Planned Disposition: Home or Self Care Anticipated Discharge Date: 06/02/18 Discharge Date: Expected LOS: 10 Initial Reviewer: [email or web address] Initial Review Date: 05/24/2018 Generated: 06/01/18 5:45 pm Comments DCP- Discharge Planning Updated by [email or web address]: Jeff Christopher on 06/01/18 3:[address] Patient Name: ODETTE OH Encounter No: [id number] : 1960 Primary Insurance: MEDICAID [place] Anticipated DC Date: 06-02-2018 Planned Disposition: Home or Self Care DCP follow-up note: CM RECEIVED ORDER FOR DISCHARGE PLANNING BACK TO [facility] OR REHAB. CM MET WITH PT IN ROOM AFTER RETURN FROM DIALYSIS. CM DISCUSSED DISCHARGE PLANNING, ATTEMPTED TO DISCUSS AVAILABILITY OF REHAB SERVICES, HOME HEALTH AND MEDICAL EQUIPMENT. PT REPORTS "NO" HE IS NOT GOING TO REHAB OR A [facility]. PT REPORTS HE JUST GOT OUT OF [facility] THREE MONTHS AGO, THE [facility] TAKES HIS MONEY AND GIVES HIM ONLY $30. PT REPORTS HAVING WHAT HE NEEDS AT HOME WITH HIS FAMILY. PT REPORTS HIS COUSIN WILL PICK HIM UP FOR DISCHARGE. PT STATES THAT IF HE CANNOT GET HIS COUSIN, HE WILL NOTIFY CM TO CALL [employer] [facility] TO GET HIM HOME. CM EXPLAINED THAT IF PT DISCHARGES ON WEEKEND, MEDICAID TRANSPORT DOES NOT PROVIDE SERVICES. PT STATES HE HAS BEEN "DOING THIS FOR A WHILE" AND KNOWS "HOW THINGS WORK." CM PROVIDED PT WITH CM PHONE NUM[facility]ER NUMBER. PT REFUSES [facility] PLACEMENT, DENIES NEED OF HOME HEALTH / REHAB SERVICES. REPORTS PLAN TO DISCHARGE HOME WITH FAMILY, DENIES NEEDS. PT DENIES DISCHARGE NEEDS AT THIS TIME AND WILL NOTIFY CM IF HE NEEDS ASSISTANCE WITH SETTING UP [employer] [facility] TO GET HOME AT DISCHARGE IF HE IS NOT ABLE TO FIND FAMILY MEMBER TO PICK HIM UP SUSI OCASIO MANAGEMENT. DCP- Discharge Planning Updated by [email or web address]: Jeff Christophre on 06/01/18 3:[address] Patient Name: ODETTE OH Encounter No: [id number] : 1960 Primary Insurance: MEDICAID [place] Anticipated DC Date: Planned Disposition: Home or Self Care DCP follow-up note: CM RECEIVED ORDER FOR DISCHARGE PLANNING BACK TO [facility] OR REHAB. PT WAS NOT IN ROOM AT 1415 HOURS OR 1400 HOURS. CM TO FOLLOW UP WITH PT SOON POSSIBLE WHEN HE IS RETURNED TO ROOM AFTER DIALYSIS FOR DISCHARGE PLANNING. SUSI Ocasio DCP- Discharge Planning Updated by [email or web address]: Sonia Barrera on 05/24/18 4:[address] Patient Name: ODETTE OH Admission Status: ER Accout number: [id number] Admission Date: 05-23-2018 : 1960 Admission Diagnosis: Attending: Leona Alcantar Current LOS: 1 Anticipated DC Date: Planned Disposition: Home or Self Care Primary Insurance: MEDICAID [place] Discharge Planning Comments: CM met with patient at bedside after obtaining verbal consent. Patient states he plans on returning to his friends home after discharge. Patient is hemodialysis patient in [place] and has dialysis MWF @10:30. Patient denies any discharge needs at this time. CM will continue to follow and assist as needed for discharge planning / needs. Acid Cleaner: Sonia Barrera DCPIA - Discharge Planning Initial Assessment Updated by [email or web address]: Sonia Barrera on 05/24/18 5:34 pm * Is the patient Alert and Oriented? Yes * PCP Dr. Tompkins * Pharmacy [facility] * Preadmission Environment Homeless * Other Environment states he was staying with a friend * ADLs Independent * Equipment None * List name and contact numbers for known caregivers / representatives who currently or will assist patient after discharge: Matt Reynolds brother [phone] * Community resources currently utilized None * Additional services required to return to the preadmission environment? No * Can the patient safely return to the preadmission environment? Yes * Has this patient been hospitalized within the prior 30 days at any hospital? Yes Last DP export: 06/01/18 3:37 Patient Name: ODETTE OH Page 06559 at 1645 All edits/amendments must be made on the electronic document DICTATION DATE: 06/01/181644 SMALL PIECE CUTTER: [facility] 06/01/181644 RPT#: [id number] DC DATE: STATUS: ADM IN [facility] [address] [place] [address] END OF REPORT
[~2018-05-23 14:18] MED LIST changes: +CARDURA1 MG PO
[2018-05-23 15:12] LABS: BASOPHILS 0.1 % (0-2); EOSINOPHILS 0.3 % (0-7); HEMATOCRIT 27.2 % (42.0-54.0); HEMOGLOBIN 9.2 g/dL (13.5-17.5); IMMATURE GRANULOCYTES 0.4 % (0-5); LYMPHOCYTES 11.2 % (15-50); MCHC 33.8 g/dL (31.0-37.0); MCV 88.6 fL (80.0-100.0); MEAN PLATELET VOLUME 11.3 fL (7.4-10.4); MONOCYTES 7.6 % (2-11); NEUTROPHILS 80.4 % (40-80); RBC 3.07 10x6/uL (4.20-6.10); RDW 16.4 % (11.5-14.5); WBC 7.3 10x3/uL (4.8-10.8)
[2018-05-23 15:15] LABS: PLATELET COUNT 210 10x3/uL (130-400)
[2018-05-23 19:23] LABS: INR 1.13 (0.85-1.17); PROTIME 14.1 SECONDS (11.6-15.0)
[2018-05-23 20:24] LABS: ALBUMIN 2.5 g/dL (3.4-5.0); ALKALINE PHOSPHATASE 139 U/L (46-116); ALT (SGPT) 24 U/L (10-68); BILIRUBIN - TOTAL 0.43 mg/dL (0.2-1.3); CALC OSMOLALITY 321 mosm/kg (275-300); CARBON DIOXIDE 12.9 mmol/L (21.0-32.0); CHLORIDE - SERUM 106 mmol/L (98-107); CKMB 4.3 U/L (0.0-3.6); CREATINE KINASE 250 UL (21-232); CREATININE - SERUM 13.6 mg/dL (0.6-1.3); GLUCOSE 97 mg/dL (74-106); POTASSIUM - SERUM 4.1 mmol/L (3.5-5.1); PROTEIN - SERUM 7.8 g/dL (6.4-8.2); SODIUM 143 mmol/L (136-145); UREA NITROGEN 115 mg/dL (7-18); eGFR NON AFRICAN AMERICAN 4 mL/min (90-120)
[2018-05-23 20:25] LABS: CALCIUM 6.2 mg/dL (8.5-10.1)
[2018-05-23 20:26] LABS: TROPONIN-I 0.091 ng/mL (0.000-0.060)
[2018-05-23 20:48] LABS: PRO BNP 134964 pg/mL (0-125)
[2018-05-23 22:09] LABS: APPEARANCE CLEAR (CLEAR); BACTERIA NONE SEEN /hpf (NONE SEEN); BILIRUBIN NEGATIVE (NEGATIVE); COLOR YELLOW (YELLOW); EPITHELIAL CELLS NSEEN /hpf (0-5); GLUCOSE 50 mg/dL (NEGATIVE); KETONE NEGATIVE (NEGATIVE); NITRITE NEGATIVE (NEGATIVE); PROTEIN 2+ mg/dL (NEGATIVE); RED CELLS - URINE 0-5 /hpf (0-5); UROBILINOGEN NORMAL (NORMAL); WHITE CELLS - URINE RARE /hpf (0-5)
[2018-05-23 22:21] LABS: UDS - AMPHET NEGATIVE QUAL (NEGATIVE); UDS - BARB NEGATIVE QUAL (NEGATIVE); UDS - BENZO NEGATIVE QUAL (NEGATIVE); UDS - COCAINE POSITIVE QUAL (NEGATIVE); UDS - OPIATE NEGATIVE QUAL (NEGATIVE); UDS - PCP NEGATIVE QUAL (NEGATIVE); UDS - THC NEGATIVE QUAL (NEGATIVE)
[2018-05-24] VITALS (24 sets, daily range): BP systolic 112–173; BP diastolic 64–114; Ht 177.8 cm; Wt 87.7 kg
[2018-05-24 04:16] LABS: BASOPHILS 0 % (0-2); EOSINOPHILS 0.6 % (0-7); HEMATOCRIT 23.8 % (42.0-54.0); IMMATURE GRANULOCYTES 0.4 % (0-5); LYMPHOCYTES 15.1 % (15-50); MCHC 33.6 g/dL (31.0-37.0); MCV 86.2 fL (80.0-100.0); MEAN PLATELET VOLUME 9.9 fL (7.4-10.4); MONOCYTES 8.5 % (2-11); NEUTROPHILS 75.4 % (40-80); PLATELET COUNT 143 10x3/uL (130-400); RBC 2.76 10x6/uL (4.20-6.10); RDW 15.8 % (11.5-14.5); WBC 5.3 10x3/uL (4.8-10.8)
[2018-05-24 04:29] LABS: CREATININE - SERUM 10.9 mg/dL (0.6-1.3); PHOSPHOROUS 6.2 mg/dL (2.5-4.9)
[2018-05-24 04:33] LABS: ANION GAP 20.8 mmol/L (8-16); CARBON DIOXIDE 19.6 mmol/L (21.0-32.0); POTASSIUM - SERUM 3.4 mmol/L (3.5-5.1)
[2018-05-24 04:34] LABS: CALCIUM 6.6 mg/dL (8.5-10.1)
[2018-05-24 16:22] LABS: HEMATOCRIT 22.3 % (42.0-54.0); HEMOGLOBIN 7.6 g/dL (13.5-17.5); MCH 29.6 pg (26.0-34.0); MCHC 34.1 g/dL (31.0-37.0); MCV 86.8 fL (80.0-100.0); MEAN PLATELET VOLUME 10.3 fL (7.4-10.4); RBC 2.57 10x6/uL (4.20-6.10); RDW 15.8 % (11.5-14.5)
[2018-05-24 16:54] LABS: INR 1.16 (0.85-1.17); PROTIME 14.3 SECONDS (11.6-15.0)
[2018-05-24 16:57] LABS: APTT 40.6 SECONDS (22.8-39.4)
[2018-05-25] VITALS (23 sets, daily range): BP systolic 115–162; BP diastolic 43–105
[2018-05-25 01:25] LABS: HEMATOCRIT 23.8 % (42.0-54.0); HEMOGLOBIN 8.1 g/dL (13.5-17.5); MCH 29.5 pg (26.0-34.0); MCV 86.5 fL (80.0-100.0); MEAN PLATELET VOLUME 10.4 fL (7.4-10.4); RBC 2.75 10x6/uL (4.20-6.10); RDW 15.4 % (11.5-14.5); WBC 4.9 10x3/uL (4.8-10.8)
[2018-05-25 04:31] LABS: BASOPHILS 0 % (0-2); HEMATOCRIT 23.6 % (42.0-54.0); HEMOGLOBIN 7.9 g/dL (13.5-17.5); IMMATURE GRANULOCYTES 0.4 % (0-5); LYMPHOCYTES 18.8 % (15-50); MCH 29.4 pg (26.0-34.0); MCHC 33.5 g/dL (31.0-37.0); MCV 87.7 fL (80.0-100.0); MEAN PLATELET VOLUME 10.8 fL (7.4-10.4); MONOCYTES 12.6 % (2-11); NEUTROPHILS 67.2 % (40-80); PLATELET COUNT 148 10x3/uL (130-400); RBC 2.69 10x6/uL (4.20-6.10); RDW 15.5 % (11.5-14.5); WBC 5.2 10x3/uL (4.8-10.8)
[2018-05-25 04:50] LABS: ALBUMIN 2.2 g/dL (3.4-5.0); ANION GAP 22.2 mmol/L (8-16); BILIRUBIN - TOTAL 0.49 mg/dL (0.2-1.3); CALCIUM 7.2 mg/dL (8.5-10.1); CARBON DIOXIDE 16.8 mmol/L (21.0-32.0); CREATININE - SERUM 11.5 mg/dL (0.6-1.3); PHOSPHOROUS 6.8 mg/dL (2.5-4.9); PROTEIN - SERUM 6.5 g/dL (6.4-8.2); VANCOMYCIN - RANDOM 13.8 ug/mL (10.0-20.0)
[2018-05-26] VITALS (16 sets, daily range): BP systolic 124–151; BP diastolic 64–84
[2018-05-26 00:23] LABS: HEMATOCRIT 25.3 % (42.0-54.0); HEMOGLOBIN 8.5 g/dL (13.5-17.5); MCH 29.4 pg (26.0-34.0); MCHC 33.6 g/dL (31.0-37.0); MCV 87.5 fL (80.0-100.0); MEAN PLATELET VOLUME 9.9 fL (7.4-10.4); RBC 2.89 10x6/uL (4.20-6.10); RDW 15.6 % (11.5-14.5); WBC 5.2 10x3/uL (4.8-10.8)
[2018-05-26 04:08] LABS: BASOPHILS 0 % (0-2); EOSINOPHILS 1.2 % (0-7); HEMATOCRIT 24.5 % (42.0-54.0); HEMOGLOBIN 8.2 g/dL (13.5-17.5); LYMPHOCYTES 14.5 % (15-50); MCH 29.6 pg (26.0-34.0); MCHC 33.5 g/dL (31.0-37.0); MCV 88.4 fL (80.0-100.0); MEAN PLATELET VOLUME 10.5 fL (7.4-10.4); MONOCYTES 15.5 % (2-11); NEUTROPHILS 67.8 % (40-80); PLATELET COUNT 134 10x3/uL (130-400); RBC 2.77 10x6/uL (4.20-6.10); RDW 15.6 % (11.5-14.5); WBC 5.2 10x3/uL (4.8-10.8)
[2018-05-26 04:17] LABS: ANION GAP 16.2 mmol/L (8-16); CALCIUM 7.4 mg/dL (8.5-10.1); POTASSIUM - SERUM 3.5 mmol/L (3.5-5.1)
[2018-05-26 04:19] LABS: CARBON DIOXIDE 23.3 mmol/L (21.0-32.0); CREATININE - SERUM 8.4 mg/dL (0.6-1.3); PHOSPHOROUS 4.9 mg/dL (2.5-4.9)
[2018-05-27 00:19] LABS: HEMATOCRIT 25.1 % (42.0-54.0); HEMOGLOBIN 8.2 g/dL (13.5-17.5); MCH 29.3 pg (26.0-34.0); MCHC 32.7 g/dL (31.0-37.0); MCV 89.6 fL (80.0-100.0); MEAN PLATELET VOLUME 10.5 fL (7.4-10.4); RBC 2.8 10x6/uL (4.20-6.10); RDW 15.7 % (11.5-14.5); WBC 4.6 10x3/uL (4.8-10.8)
[2018-05-27 01:06] VITALS: BP 133/68
[2018-05-27 04:00] VITALS: BP 131/78
[2018-05-27 05:54] LABS: BASOPHILS 0.2 % (0-2); EOSINOPHILS 0.7 % (0-7); HEMATOCRIT 25.2 % (42.0-54.0); HEMOGLOBIN 8.4 g/dL (13.5-17.5); IMMATURE GRANULOCYTES 1.3 % (0-5); LYMPHOCYTES 17.4 % (15-50); MCH 29.7 pg (26.0-34.0); MCHC 33.3 g/dL (31.0-37.0); MEAN PLATELET VOLUME 10.3 fL (7.4-10.4); MONOCYTES 14.2 % (2-11); NEUTROPHILS 66.2 % (40-80); PLATELET COUNT 133 10x3/uL (130-400); RBC 2.83 10x6/uL (4.20-6.10); RDW 15.7 % (11.5-14.5); WBC 5.4 10x3/uL (4.8-10.8)
[2018-05-27 06:29] LABS: ANION GAP 20.8 mmol/L (8-16); CALCIUM 7.2 mg/dL (8.5-10.1); CREATININE - SERUM 9.4 mg/dL (0.6-1.3); PHOSPHOROUS 5.3 mg/dL (2.5-4.9); POTASSIUM - SERUM 3.8 mmol/L (3.5-5.1)
[2018-05-27 08:00] VITALS: BP 129/74
[2018-05-27 17:16] VITALS: BP 125/69
[2018-05-27 20:15] VITALS: BP 123/78
[2018-05-28 01:16] VITALS: BP 143/72
[2018-05-28 05:09] LABS: BASOPHILS 0.2 % (0-2); EOSINOPHILS 1.1 % (0-7); HEMATOCRIT 27.1 % (42.0-54.0); LYMPHOCYTES 15.4 % (15-50); MCH 29.9 pg (26.0-34.0); MCHC 33.2 g/dL (31.0-37.0); MEAN PLATELET VOLUME 10.3 fL (7.4-10.4); MONOCYTES 16.9 % (2-11); NEUTROPHILS 65.4 % (40-80); PLATELET COUNT 143 10x3/uL (130-400); RBC 3.01 10x6/uL (4.20-6.10); RDW 15.7 % (11.5-14.5); WBC 6.1 10x3/uL (4.8-10.8)
[2018-05-28 05:22] LABS: ANION GAP 16.3 mmol/L (8-16); CALCIUM 7.8 mg/dL (8.5-10.1); CARBON DIOXIDE 26.1 mmol/L (21.0-32.0); PHOSPHOROUS 4.5 mg/dL (2.5-4.9); POTASSIUM - SERUM 3.4 mmol/L (3.5-5.1)
[2018-05-28 05:24] LABS: CREATININE - SERUM 6.7 mg/dL (0.6-1.3)
[2018-05-28 05:51] VITALS: BP 150/80
[2018-05-28 08:20] VITALS: BP 132/73
[2018-05-28 20:42] VITALS: BP 124/53
[2018-05-29 00:54] LABS: HEMATOCRIT 24.1 % (42.0-54.0); HEMOGLOBIN 8.1 g/dL (13.5-17.5); MCH 30.2 pg (26.0-34.0); MCHC 33.6 g/dL (31.0-37.0); MCV 89.9 fL (80.0-100.0); MEAN PLATELET VOLUME 9.7 fL (7.4-10.4); RBC 2.68 10x6/uL (4.20-6.10); RDW 15.7 % (11.5-14.5); WBC 5.2 10x3/uL (4.8-10.8)
[2018-05-29 01:36] VITALS: BP 150/80
[2018-05-29 06:04] VITALS: BP 142/83
[2018-05-29 06:29] LABS: BASOPHILS 0.2 % (0-2); EOSINOPHILS 0.9 % (0-7); HEMATOCRIT 25.2 % (42.0-54.0); HEMOGLOBIN 8.2 g/dL (13.5-17.5); IMMATURE GRANULOCYTES 0.7 % (0-5); LYMPHOCYTES 14.6 % (15-50); MCH 29.6 pg (26.0-34.0); MCHC 32.5 g/dL (31.0-37.0); NEUTROPHILS 67.6 % (40-80); PLATELET COUNT 149 10x3/uL (130-400); RBC 2.77 10x6/uL (4.20-6.10); RDW 15.8 % (11.5-14.5); WBC 5.8 10x3/uL (4.8-10.8)
[2018-05-29 06:47] LABS: ANION GAP 18.7 mmol/L (8-16); CALCIUM 7.6 mg/dL (8.5-10.1); CARBON DIOXIDE 24.7 mmol/L (21.0-32.0); CREATININE - SERUM 7.9 mg/dL (0.6-1.3); POTASSIUM - SERUM 3.4 mmol/L (3.5-5.1); VANCOMYCIN - RANDOM 20.7 ug/mL (10.0-20.0)
[2018-05-29 09:15] VITALS: BP 133/65
[2018-05-29 11:05] VITALS: BP 138/68
[2018-05-29 14:42] VITALS: BP 130/68
[2018-05-29 21:22] VITALS: BP 160/70
[2018-05-30 01:19] VITALS: BP 156/81
[2018-05-30 04:57] LABS: BASOPHILS 0 % (0-2); EOSINOPHILS 0.9 % (0-7); HEMATOCRIT 26.7 % (42.0-54.0); HEMOGLOBIN 8.5 g/dL (13.5-17.5); IMMATURE GRANULOCYTES 0.7 % (0-5); LYMPHOCYTES 14.3 % (15-50); MCH 29.2 pg (26.0-34.0); MCHC 31.8 g/dL (31.0-37.0); MCV 91.8 fL (80.0-100.0); MEAN PLATELET VOLUME 9.6 fL (7.4-10.4); MONOCYTES 15.5 % (2-11); NEUTROPHILS 68.6 % (40-80); PLATELET COUNT 149 10x3/uL (130-400); RBC 2.91 10x6/uL (4.20-6.10); WBC 5.4 10x3/uL (4.8-10.8)
[2018-05-30 05:03] LABS: ANION GAP 15.7 mmol/L (8-16); CALCIUM 7.8 mg/dL (8.5-10.1); CREATININE - SERUM 9.2 mg/dL (0.6-1.3); PHOSPHOROUS 5.8 mg/dL (2.5-4.9); POTASSIUM - SERUM 3.7 mmol/L (3.5-5.1); VANCOMYCIN - RANDOM 19.1 ug/mL (10.0-20.0)
[2018-05-30 06:11] VITALS: BP 161/78
[2018-05-30 07:56] VITALS: BP 141/69
[2018-05-30 10:54] LABS: INR 1.11 (0.85-1.17); PROTIME 13.9 SECONDS (11.6-15.0)
[2018-05-30 11:03] VITALS: BP 142/72
[2018-05-30 15:29] VITALS: BP 145/73
[2018-05-30 20:00] VITALS: BP 148/70
[2018-05-31] VITALS (8 sets, daily range): BP systolic 122–172; BP diastolic 3–83
[2018-05-31 06:10] LABS: BASOPHILS 0 % (0-2); EOSINOPHILS 0.9 % (0-7); HEMATOCRIT 25.8 % (42.0-54.0); HEMOGLOBIN 8.2 g/dL (13.5-17.5); IMMATURE GRANULOCYTES 0.4 % (0-5); LYMPHOCYTES 17.3 % (15-50); MCH 29.4 pg (26.0-34.0); MCHC 31.8 g/dL (31.0-37.0); MCV 92.5 fL (80.0-100.0); MEAN PLATELET VOLUME 10.4 fL (7.4-10.4); MONOCYTES 15.8 % (2-11); NEUTROPHILS 65.6 % (40-80); PLATELET COUNT 156 10x3/uL (130-400); RBC 2.79 10x6/uL (4.20-6.10); RDW 16.4 % (11.5-14.5); WBC 5.4 10x3/uL (4.8-10.8)
[2018-05-31 06:14] LABS: INR 1.11 (0.85-1.17); PROTIME 13.9 SECONDS (11.6-15.0)
[2018-05-31 06:15] LABS: APTT 81.8 SECONDS (22.8-39.4)
[2018-05-31 06:21] LABS: ANION GAP 15.4 mmol/L (8-16); CALCIUM 7.9 mg/dL (8.5-10.1); CARBON DIOXIDE 28.2 mmol/L (21.0-32.0); PHOSPHOROUS 4.5 mg/dL (2.5-4.9); POTASSIUM - SERUM 3.6 mmol/L (3.5-5.1); VANCOMYCIN - RANDOM 15.2 ug/mL (10.0-20.0)
[2018-05-31 06:24] LABS: CREATININE - SERUM 6.3 mg/dL (0.6-1.3)
[2018-06-01] VITALS: BP 148/80
[2018-06-01 05:58] LABS: BASOPHILS 0.2 % (0-2); EOSINOPHILS 1.3 % (0-7); HEMOGLOBIN 8.6 g/dL (13.5-17.5); IMMATURE GRANULOCYTES 0.5 % (0-5); LYMPHOCYTES 16.7 % (15-50); MCH 29.7 pg (26.0-34.0); MCHC 31.9 g/dL (31.0-37.0); MCV 93.1 fL (80.0-100.0); MEAN PLATELET VOLUME 9.5 fL (7.4-10.4); MONOCYTES 17.3 % (2-11); PLATELET COUNT 143 10x3/uL (130-400); RDW 16.7 % (11.5-14.5); WBC 5.6 10x3/uL (4.8-10.8)
[2018-06-01 06:09] LABS: CARBON DIOXIDE 26.1 mmol/L (21.0-32.0); CREATININE - SERUM 7.6 mg/dL (0.6-1.3); POTASSIUM - SERUM 4.1 mmol/L (3.5-5.1); VANCOMYCIN - RANDOM 14.2 ug/mL (10.0-20.0)
[2018-06-01 07:27] VITALS: BP 153/85
[2018-06-01 09:06] VITALS: BP 149/74
[2018-06-01 20:55] VITALS: BP 145/59
[2018-06-02 00:56] VITALS: BP 139/82
[2018-06-02 06:21] VITALS: BP 127/76
[2018-06-02 06:25] LABS: BASOPHILS 0.2 % (0-2); EOSINOPHILS 1.1 % (0-7); HEMATOCRIT 26.5 % (42.0-54.0); HEMOGLOBIN 8.4 g/dL (13.5-17.5); IMMATURE GRANULOCYTES 0.3 % (0-5); LYMPHOCYTES 14.1 % (15-50); MCH 29.8 pg (26.0-34.0); MCHC 31.7 g/dL (31.0-37.0); MEAN PLATELET VOLUME 9.2 fL (7.4-10.4); MONOCYTES 14.8 % (2-11); NEUTROPHILS 69.5 % (40-80); PLATELET COUNT 141 10x3/uL (130-400); RBC 2.82 10x6/uL (4.20-6.10); RDW 16.9 % (11.5-14.5); WBC 6.4 10x3/uL (4.8-10.8)
[2018-06-02 06:56] LABS: ANION GAP 16.3 mmol/L (8-16); CARBON DIOXIDE 27.3 mmol/L (21.0-32.0); PHOSPHOROUS 4.1 mg/dL (2.5-4.9); POTASSIUM - SERUM 3.6 mmol/L (3.5-5.1); VANCOMYCIN - RANDOM 25.5 ug/mL (10.0-20.0)
[2018-06-02 08:03] VITALS: BP 117/78
[2018-06-02] MEDS ORDERED: ELIQUIS2.5 MG PO (09:33)
[2018-06-02 11:52] VITALS: BP 129/71
[2018-06-02 15:58] VITALS: BP 157/75
== END 2018-06-02 17:57 | disposition home or self-care (01) | DRG 981 ==
LOC: D.ER 14:18 → D.ICU 21:30 → D.M2 05-26 15:33
PROVIDERS: Emergency Medicine; Internal Medicine; Internal Medicine Nephrology; Radiology Vascular & Interventional Radiology; Specialist
PROC: 05H533Z Insertion of Infusion Device into Right Subclavian Vein, Percutaneous Approach (ICD-10-PCS; 2018-05-23)
PROC: 03723ZZ Dilation of Innominate Artery, Percutaneous Approach (ICD-10-PCS; principal; 2018-05-31 12:30)
DX: E87.70 Fluid overload, unspecified (principal); N18.6 End stage renal disease; I12.0 Hypertensive chronic kidney disease with stage 5 chronic kidney disease or end stage renal disease; I82.622 Acute embolism and thrombosis of deep veins of left upper extremity; J81.1 Chronic pulmonary edema; I87.1 Compression of vein; F14.20 Cocaine dependence, uncomplicated; E11.22 Type 2 diabetes mellitus with diabetic chronic kidney disease; Z99.2 Dependence on renal dialysis; Z91.15 Patient's noncompliance with renal dialysis; D63.1 Anemia in chronic kidney disease; F17.200 Nicotine dependence, unspecified, uncomplicated; B19.20 Unspecified viral hepatitis C without hepatic coma; K21.9 Gastro-esophageal reflux disease without esophagitis

== ENCOUNTER 2018-06-05 06:46 | Inpatient (IN) | payer MEDICAID ==
[~2018-06-05] VITALS: Ht 177.8 cm; Wt 74.1 kg
--- NOTE | ~2018-06-05 | DS ---
PATIENT:ODETTE OH :[birth year] MEDICAL RECORD: [id number] DISCHARGE SUMMARY ADMISSION DATE: 06/05/18 DISCHARGE DATE: 06/06/18 HISTORY OF PRESENT ILLNESS: Mr. 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 He has been on Eliquis therapy, was discharged home, apparently fell, getting off the cab bus and sustained a laceration to his left leg, which apparently bled all weekend and he finally comes to the Emergency Room on Tuesday. At that time, the wound was Steri-Stripped and he was admitted for dialysis and consideration of alternate access. HOSPITAL COURSE: The patient was emergently dialyzed. The day following that his hemoglobin was over 9. He was stable on his home medications. He declined fpc placement and at this time, I will probably pursue alternate access and shut down his current fistula since his arm has not improved significantly. We will remain on Eliquis therapy due to his DVT and we will have him see Dr. Chang in the office. DISCHARGE DIAGNOSES: 1. Bleeding post-fall on anticoagulant therapy. 2. Chronic drug abuse. 3. End-stage renal disease. 4. Hypertension. 5. Poor medication compliance. PLAN: The patient will be discharged today. He will be in [facility] tomorrow, have an appointment with Dr. Chang as an outpatient. DISCHARGE MEDICATIONS: Protonix 40 daily, amlodipine 10 daily, Eliquis 2.5 b.i.d., Renvela 800 mg 3 t.i.d., clonidine 0.2 b.i.d., lisinopril 20 b.i.d., isosorbide 60 mg daily, doxazosin 1 mg b.i.d., Lipitor 10 mg h.s., and tramadol 30 p.r.n. TRANSINT:[id number] Voice Confirmation ID: [id number] DOCUMENT ID: [id number] JAYDE METZGER MD at 0711 CC: BC CHANG [id number] DICTATION DATE: 06/06/18 0647 PUBLIC WORKS SUPERVISOR: 06/06/18 0854 DIS IN 06/06/18 [place] [id number] [place] [address]
--- NOTE | ~2018-06-05 | MORECARE ---
CASE MANAGEMENT DISCHARGE SUMMARY PATIENT: ODETTE OH UNIT: [id number] ADM DATE: 06/05/18 AGE: 57 : 64 SEX: M ROOM/BED: D.2131 AUTHOR: ETHAN MAHONEY PHYSICIAN: REFERRING PHYSICIAN: JAYDE METZGER MD DATE OF SERVICE: 06/06/18 Discharge Plan Patient Name: ODETTE OH Facility: [facility]:[place] : 1960 Planned Disposition: Home with Home Health Anticipated Discharge Date: 06/06/18 Discharge Date: Expected LOS: 1 Initial Reviewer: [email or web address] Initial Review Date: 06/05/2018 Generated: 06/06/18 12:26 pm Comments DCP- Discharge Planning Updated by [email or web address]: Jeff Christopher on 06/06/18 10:[address] Patient Name: ODETTE OH Admission Status: ER Accout number: [id number] Admission Date: 06-05-2018 : 1960 Admission Diagnosis: Attending: JAYDE METZGER Current LOS: 1 Anticipated DC Date: 06-06-2018 Planned Disposition: Home with Home Health Primary Insurance: MEDICAID [place] PLANNED EXTERNAL PROVIDER: [email or web address] Discharge Planning Comments: CM RECEIVED DISCHARGE AND HOME HEALTH ORDER. CM MET WITH PT IN ROOM TO DISCUSS DISCHARGE PLANNING AND NEEDS. PT REPORTS LIVING AT HOME INDEPENDENTLY WITH A FRIEND. PT HAS NO MEDICAL EQUIPMENT AND NO OUTSIDE SERVICES ASSISTING IN THE HOME. PT ATTENDS DIALYSIS MWF AT 1030 AT [facility] IN [place], [facility], SOMETIMES UTILIZES [place] MED[place]ID TRANSPORTATION. CM DISCUSSED AVAILABILITY OF HOME HEALTH, REHAB SERVICES AND MEDICAL EQUIPMENT. PT WILL ACCEPT HOME HEALTH FOR WOUND CARE, WILL BE GOING HOME WITH DAUGHTER IN [place] WHO WILL BE ABLE TO ASSIST HIM. PT REPORTS HIS DAUGHTER TIA WILL PICK HIM UP FOR DISCHARGE HOME TODAY. CHOICE SIGNED FOR NO HOME HEALTH PROVIDER. DISCHARGE ADDRESS CONFIRMED WITH TIA ADRIANO: [place], [address] [place] [address]. CM CALLED [facility] , SPOKE TO BOB WHO TOOK REFERRAL AND WILL CHECK WITH HER BILLBOARD ERECTOR FOR ACCEPTANCE DETERMINATION AND CALL CM BACK. CM FAXED REFERRAL TO [email or web address] AT [phone]. CM WAITING ADMISSION DETERMINATION FROM [facility] STOVE CARRIAGE OPERATOR NURSE NOTIFIED. Clarification Operator: Jeff Christopher DCPIA - Discharge Planning Initial Assessment Updated by [email or web address]: Jeff Christopher on 06/06/18 10:43 am * Is the patient Alert and Oriented? Yes * How many steps to enter\exit or inside your home? NONE * PCP Delia BROWN * Pharm[facility] * Preadmission Environment Home with Family * ADLs Independent * Equipment None * Other Equipment NO MEDICAL EQUIPMENT PROVIDER PREFERENCE * List name and contact numbers for known caregivers / representatives who currently or will assist patient after discharge: [place] ADDRESS: [place], [address] [place] [address]. [phone] * Verbal permission to speak to the caregivers and representatives has been obtained from the patient. Yes * Community resources currently utilized Other * Please name any agencies selected above. -[facility] IN [place], MWF, 1030AM, FAMILY TO ASSIST WITH TRANSPORT -PT DOES UTILIZE [place] MED[place] TRANSPORTATION NEEDED. * Additional services required to return to the preadmission environment? Yes * Can the patient safely return to the preadmission environment? Yes * Has this patient been hospitalized within the prior 30 days at any hospital? Yes External Providers [facility] Next Contact Date: 06/06/2018 Service Request Date: Service Type: Resolution: Reviewer: Comments: Last DP export: 06/06/18 10:09 Patient Name: ODETTE OH Page 32271 at 1126 All edits/amendments must be made on the electronic document DICTATION DATE: 06/06/18 112 LEGISLATORS: [facility] 06/06/181124 RPT#: [id number] DC DATE: STATUS: ADM IN [facility] [address] [place] [address] END OF REPORT
--- NOTE | ~2018-06-05 | MORECARE ---
CASE MANAGEMENT DISCHARGE SUMMARY PATIENT: ODETTE OH UNIT: [id number] ADM DATE: 06/05/18 AGE: 57 : 64 SEX: M ROOM/BED: D.2131 AUTHOR: ETHAN MAHONEY PHYSICIAN: REFERRING PHYSICIAN: JAYDE METZGER MD DATE OF SERVICE: 06/06/18 Discharge Plan Patient Name: ODETTE OH Facility: [facility]:[place] : 1960 Planned Disposition: Home with Home Health Anticipated Discharge Date: 06/06/18 Discharge Date: Expected LOS: 1 Initial Reviewer: [email or web address] Initial Review Date: 06/05/2018 Generated: 06/06/18 12:09 pm Comments DCP- Discharge Planning Updated by [email or web address]: Jeff Christopher on 06/06/18 10:[address] Patient Name: ODETTE OH Admission Status: ER Accout number: [id number] Admission Date: 06-05-2018 : 1960 Admission Diagnosis: Attending: JAYDE METZGER Current LOS: 1 Anticipated DC Date: 06-06-2018 Planned Disposition: Home with Home Health Primary Insurance: MEDICAID [place] PLANNED EXTERNAL PROVIDER: [facility] Discharge Planning Comments: CM RECEIVED DISCHARGE AND HOME HEALTH ORDER. CM MET WITH PT IN ROOM TO DISCUSS DISCHARGE PLANNING AND NEEDS. PT REPORTS LIVING AT HOME INDEPENDENTLY WITH A FRIEND. PT HAS NO MEDICAL EQUIPMENT AND NO OUTSIDE SERVICES ASSISTING IN THE HOME. PT ATTENDS DIALYSIS MWF AT 1030 AT [facility] IN [place], [facility] TRANSPORTATION, [place] UTILIZES [place] MED[place] TRANSPORTATION. CM DISCUSSED AVAILABILITY OF HOME HEALTH, REHAB SERVICES AND MEDICAL EQUIPMENT. PT WILL ACCEPT HOME HEALTH FOR WOUND CARE, WILL BE GOING HOME WITH DAUGHTER IN [place] WHO WILL BE ABLE TO ASSIST HIM. PT REPORTS HIS DAUGHTER TIA WILL PICK HIM UP FOR DISCHARGE HOME TODAY. CHOICE SIGNED FOR NO HOME HEALTH PROVIDER. DISCHARGE ADDRESS CONFIRMED WITH TIA ADRIANO: [place], [address] [place] [id number]. CM CALLED [facility], , SPOKE TO BOB WHO TOOK REFERRAL AND WILL CHECK WITH HER COMPOSITE WORKER FOR ACCEPTANCE DETERMINATION AND CALL CM BACK. CM FAXED REFERRAL TO [facility] AT [phone]. CM WAITING ADMISSION DETERMINATION FROM [facility]. WIND TURBINE MECHANICAL ENGINEER NURSE NOTIFIED. Hoseman: Jeff Christopher DCPIA - Discharge Planning Initial Assessment Updated by [email or web address]: Jeff Christopher on 06/06/18 10:43 am * Is the patient Alert and Oriented? Yes * How many steps to enter\exit or inside your home? NONE * PCP Delia BROWN * [facility] * Preadmission Environment Home with Family * ADLs Independent * Equipment None * Other Equipment NO MEDICAL EQUIPMENT PROVIDER PREFERENCE * List name and contact numbers for known caregivers / representatives who currently or will assist patient after discharge: [place] D[place], [place] ADDRESS: [place] ADRIANO, [address] [place] [address]. [phone] * Verbal permission to speak to the caregivers and representatives has been obtained from the patient. Yes * Community resources currently utilized Other * Please name any agencies selected above. -[facility] IN [place], MWF, 1030AM, FAMILY TO ASSIST WITH TRANSPORT -PT DOES UTILIZE [place] MEDICAID TRANSPORTATION NEEDED. * Additional services required to return to the preadmission environment? Yes * Can the patient safely return to the preadmission environment? Yes * Has this patient been hospitalized within the prior 30 days at any hospital? Yes Last DP export: 06/06/18 9:52 Patient Name: ODETTE OH Page 07529 at 1109 All edits/amendments must be made on the electronic document DICTATION DATE: 06/06/181108 OUTSIDE PHYSICAL DAMAGE APPRAISER: LUH 06/06/18 110 RPT#: [id number] DC DATE: STATUS: ADM IN [facility] [address] [place] [address] END OF REPORT
--- NOTE | ~2018-06-05 | MORECARE ---
CASE MANAGEMENT DISCHARGE SUMMARY PATIENT: ODETTE OH UNIT: [id number] ADM DATE: 06/05/18 AGE: 57 : 64 SEX: M ROOM/BED: D.2131 AUTHOR: ETHAN MAHONEY PHYSICIAN: REFERRING PHYSICIAN: AJYDE METZGER MD DATE OF SERVICE: 06/06/18 Discharge Plan Patient Name: ODETTE OH [facility] [facility] 1960 Planned Disposition: Home with Home Health Anticipated Discharge Date: 06/06/18 Discharge Date: Expected LOS: 1 Initial Reviewer: [email or web address] Initial Review Date: 06/05/2018 Generated: 06/06/18 11:43 am Patient Name: ODETTE OH Page 23672 at 1043 All edits/amendments must be made on the electronic document DICTATION DATE: 06/06/18 1042 ELOCUTION TEACHER: LUH 06/06/18 1042 RPT#: [id number] DC DATE: STATUS: ADM IN [facility] [address] [place] [address] END OF REPORT
--- NOTE | ~2018-06-05 | MORECARE ---
CASE MANAGEMENT DISCHARGE SUMMARY PATIENT: ODETTE OH UNIT: [id number] ADM DATE: 06/05/18 AGE: 57 : 64 SEX: M ROOM/BED: D.2131 AUTHOR: ETHAN MAHONEY PHYSICIAN: REFERRING PHYSICIAN: JAYDE METZGER MD DATE OF SERVICE: 06/06/18 Discharge Plan Patient Name: ODETTE OH Facility: [facility]:[place] : 1960 Planned Disposition: Home with Home Health Anticipated Discharge Date: 06/06/18 Discharge Date: Expected LOS: 1 Initial Reviewer: [email or web address] Initial Review Date: 06/05/2018 Generated: 06/06/18 12:34 pm Comments DCP- Discharge Planning Updated by [email or web address]: Jeff Christopher on 06/06/18 10:[address] Patient Name: ODETTE OH Admission Status: ER Accout number: [id number] Admission Date: 06-05-2018 : 1960 Admission Diagnosis: Attending: JAYDE METZGER Current LOS: 1 Anticipated DC Date: 06-06-2018 Planned Disposition: Home with Home Health Primary Insurance: MEDICAID [place] PLANNED EXTERNAL PROVIDER: [email or web address] Discharge Planning Comments: CM RECEIVED DISCHARGE AND HOME HEALTH ORDER. CM MET WITH PT IN ROOM TO DISCUSS DISCHARGE PLANNING AND NEEDS. PT REPORTS LIVING AT HOME INDEPENDENTLY WITH A FRIEND. PT HAS NO MEDICAL EQUIPMENT AND NO OUTSIDE SERVICES ASSISTING IN THE HOME. PT ATTENDS DIALYSIS MWF AT 1030 AT [facility] IN [place], [facility] TRANSPORTATION, [place] UTILIZES [place] MED[place] TRANSPORTATION. CM DISCUSSED AVAILABILITY OF HOME HEALTH, REHAB SERVICES AND MEDICAL EQUIPMENT. PT WILL ACCEPT HOME HEALTH FOR WOUND CARE, WILL BE GOING HOME WITH DAUGHTER IN [place] WHO WILL BE ABLE TO ASSIST HIM. PT REPORTS HIS DAUGHTER TIA WILL PICK HIM UP FOR DISCHARGE HOME TODAY. CHOICE SIGNED FOR NO HOME HEALTH PROVIDER. DISCHARGE ADDRESS CONFIRMED WITH TIA ADRIANO: [place], [address] [place] [phone]. CM CALLED [email or web address], , SPOKE TO BOB WHO TOOK REFERRAL AND WILL CHECK WITH HER EDUCATION AND DEVELOPMENT MANAGER FOR ACCEPTANCE DETERMINATION AND CALL CM BACK. CM FAXED REFERRAL TO [email or web address] AT [phone]. CM WAITING ADMISSION DETERMINATION FROM [facility]. MOTION PICTURE SET GRIP NURSE NOTIFIED. Fuller Brush Worker: Jeff Christopher DCPIA - Discharge Planning Initial Assessment Updated by [email or web address]: Jeff Christopher on 06/06/18 10:43 am * Is the patient Alert and Oriented? Yes * How many steps to enter\exit or inside your home? NONE * PCP Delia BROWN * [facility] * Preadmission Environment Home with Family * ADLs Independent * Equipment None * Other Equipment NO MEDICAL EQUIPMENT PROVIDER PREFERENCE * List name and contact numbers for known caregivers / representatives who currently or will assist patient after discharge: [place] ADRIANO D[place], [place] ADDRESS: [place], [address] [place] [address]. [phone] * Verbal permission to speak to the caregivers and representatives has been obtained from the patient. Yes * Community resources currently utilized Other * Please name any agencies selected above. -[facility] IN [place], MWF, 1030AM, FAMILY TO ASSIST WITH TRANSPORT -PT DOES UTILIZE [place] MEDICAID TRANSPORTATION NEEDED. * Additional services required to return to the preadmission environment? Yes * Can the patient safely return to the preadmission environment? Yes * Has this patient been hospitalized within the prior 30 days at any hospital? Yes Coverage Notice Reviewer: [email or web address] - Jeff Christopher Notice Issued Date-Time: 06/06/2018 11:00 Notice Type: Patient Choice Letter Notice Delivered To: Patient Relationship to Patient: Care Program Director Name: Delivery Method: HAND - Hand Delivered Arlette Days: Prior Verbal Notification: Recipient Understood Notice: Yes Recipient Signature: Yes Med Rec Note Co-signed by Attending: Coverage Notice Comment: [email or web address] Last DP export: 06/06/18 10:26 Patient Name: ODETTE OH Page 71359 at 1135 All edits/amendments must be made on the electronic document DICTATION DATE: 06/06/18 113 STUDENT UNION CONSULTANT: LUH 06/06/18 113 RPT#: [id number] DC DATE: STATUS: ADM IN [facility] [address] [place] [address] END OF REPORT
--- NOTE | ~2018-06-05 | MORECARE ---
CASE MANAGEMENT DISCHARGE SUMMARY PATIENT: ODETTE OH UNIT: [id number] ADM DATE: 06/05/18 AGE: 57 : 64 SEX: M ROOM/BED: D.2131 AUTHOR: ETHAN MAHONEY PHYSICIAN: REFERRING PHYSICIAN: JAYDE METZGER MD DATE OF SERVICE: 06/06/18 Discharge Plan Patient Name: ODETTE OH Facility: [facility]:[place] : 1960 Planned Disposition: Home with Home Health Anticipated Discharge Date: 06/06/18 Discharge Date: Expected LOS: 1 Initial Reviewer: [email or web address] Initial Review Date: 06/05/2018 Generated: 06/06/18 11:52 am DCPIA - Discharge Planning Initial Assessment Updated by [email or web address]: Jeff Christopher on 06/06/18 10:43 am * Is the patient Alert and Oriented? Yes * How many steps to enter\exit or inside your home? NONE * PCP Delia BROWN * [facility] * Preadmission Environment Home with Family * ADLs Independent * Equipment None * Other Equipment NO MEDICAL EQUIPMENT PROVIDER PREFERENCE * List name and contact numbers for known caregivers / representatives who currently or will assist patient after discharge: [place], [place] ADDRESS: [place], [address] [place] [address]. [phone] * Verbal permission to speak to the caregivers and representatives has been obtained from the patient. Yes * Community resources currently utilized Other * Please name any agencies selected above. -[facility] IN [place], [facility], 1030AM, FAMILY TO ASSIST WITH TRANSPORT -PT DOES UTILIZE [place] MEDICAID TRANSPORTATION NEEDED. * Additional services required to return to the preadmission environment? Yes * Can the patient safely return to the preadmission environment? Yes * Has this patient been hospitalized within the prior 30 days at any hospital? Yes Last DP export: 06/06/18 9:43 Patient Name: ODETTE OH Page 00555 at 1052 All edits/amendments must be made on the electronic document DICTATION DATE: 06/06/18 1052 PIPE THREADING MACHINE OPERATOR: LUH 06/06/18 1052 RPT#: [id number] DC DATE: STATUS: ADM IN [facility] [address] [facility] [place] [address] END OF REPORT
--- NOTE | ~2018-06-05 | MORECARE ---
CASE MANAGEMENT DISCHARGE SUMMARY PATIENT: ODETTE OH UNIT: [id number] ADM DATE: 06/05/18 AGE: 57 : 64 SEX: M ROOM/BED: D.2131 AUTHOR: ETHAN MAHONEY PHYSICIAN: REFERRING PHYSICIAN: JAYDE METZGER MD DATE OF SERVICE: 06/06/18 Discharge Plan Patient Name: ODETTE OH Facility: [facility]:[place] : 1960 Planned Disposition: Home with Home Health Anticipated Discharge Date: 06/06/18 Discharge Date: Expected LOS: 1 Initial Reviewer: [email or web address] Initial Review Date: 06/05/2018 Generated: 06/06/18 1:33 pm Comments DCP- Discharge Planning Updated by [email or web address]: Jeff Hedrick on 06/06/18 11:[address] Patient Name: ODETTE OH Admission Status: ER Accout number: [id number] Admission Date: 06-05-2018 : 1960 Admission Diagnosis: Attending: JAYDE METZEGR Current LOS: 1 Anticipated DC Date: 06-06-2018 Planned Disposition: Home with Home Health Primary Insurance: MEDICAID [place] PLANNED EXTERNAL PROVIDER: [facility] Discharge Planning Comments: CM RECEIVED DISCHARGE AND HOME HEALTH ORDER. CM MET WITH PT IN ROOM TO DISCUSS DISCHARGE PLANNING AND NEEDS. PT REPORTS LIVING AT HOME INDEPENDENTLY WITH A FRIEND. PT HAS NO MEDICAL EQUIPMENT AND NO OUTSIDE SERVICES ASSISTING IN THE HOME. PT ATTENDS DIALYSIS MWF AT 1030 AT [facility] IN [place], [facility] TRANSPORTATION, [place]IM[place] UTILIZES [place] MEDICAID TRANSPORTATION. CM DISCUSSED AVAILABILITY OF HOME HEALTH, REHAB SERVICES AND MEDICAL EQUIPMENT. PT WILL ACCEPT HOME HEALTH FOR WOUND CARE, WILL BE GOING HOME WITH DAUGHTER IN [place] WHO WILL BE ABLE TO ASSIST HIM. PT REPORTS HIS DAUGHTER TIA WILL PICK HIM UP FOR DISCHARGE HOME TODAY. CHOICE SIGNED FOR NO HOME HEALTH PROVIDER. DISCHARGE ADDRESS CONFIRMED WITH TIA ADRIANO: [place], [address] [place] [address]. CM CALLED [facility], , SPOKE TO BOB WHO TOOK REFERRAL AND WILL CHECK WITH HER HAND COREMAKER FOR ACCEPTANCE DETERMINATION AND CALL CM BACK. CM FAXED REFERRAL TO [facility] AT [phone]. CM WAITING ADMISSION DETERMINATION FROM [facility]. FUR CUTTING MACHINE OPERATOR NURSE NOTIFIED. Road Manager: Jeff Hedrick Appended by Jeff Hedrick on 06/06/2018 12:29 CDT: CM RECEIVED CALL FROM BOB AT [facility], , WHO REPORTS THEY WILL ACCEPT PT FOR ADMIT TOMORROW. CM NOTIFIED FUR CUTTING MACHINE OPERATOR NURSE. NO FURTHER DISCHARGE NEEDS IDENTIFIED AT THIS TIME. JEFF HEDRICK, CASE MANAGEMENT DCPIA - Discharge Planning Initial Assessment Updated by [email or web address]: Jeff Hedrick on 06/06/18 10:43 am * Is the patient Alert and Oriented? Yes * How many steps to enter\exit or inside your home? NONE * PCP Delia BROWN * [facility] * Preadmission Environment Home with Family * ADLs Independent * Equipment None * Other Equipment NO MEDICAL EQUIPMENT PROVIDER PREFERENCE * List name and contact numbers for known caregivers / representatives who currently or will assist patient after discharge: [place], [place] ADDRESS: [place], [address] [place] [address]. [phone] * Verbal permission to speak to the caregivers and representatives has been obtained from the patient. Yes * Community resources currently utilized Other * Please name any agencies selected above. -[facility] IN [place], MWF, 1030AM, FAMILY TO ASSIST WITH TRANSPORT -PT DOES UTILIZE [place] MEDICAID TRANSPORTATION NEEDED. * Additional services required to return to the preadmission environment? Yes * Can the patient safely return to the preadmission environment? Yes * Has this patient been hospitalized within the prior 30 days at any hospital? Yes Coverage Notice Reviewer: [email or web address] - Jeff Hedrick Notice Issued Date-Time: 06/06/2018 11:00 Notice Type: Patient Choice Letter Notice Delivered To: Patient Relationship to Patient: Salt Washer Harvesting Station Name: Delivery Method: HAND - Hand Delivered Arlette Days: Prior Verbal Notification: Recipient Understood Notice: Yes Recipient Signature: Yes Med Rec Note Co-signed by Attending: Coverage Notice Comment: [facility] Last DP export: 06/06/18 10:34 Patient Name: ODETTE OH Page 53567 at 1233 All edits/amendments must be made on the electronic document DICTATION DATE: 06/06/18 1232 PHOTOGRAPHER MODEL: LUH 06/06/18 1232 RPT#: [id number] DC DATE: STATUS: ADM IN [facility] [address] [place] [place] [address] END OF REPORT
--- NOTE | ~2018-06-05 | MORECARE ---
CASE MANAGEMENT DISCHARGE SUMMARY PATIENT: ODETTE OH UNIT: [id number] ADM DATE: 06/05/18 AGE: 57 : 64 SEX: M ROOM/BED: D.2131 AUTHOR: ETHAN MAHONEY PHYSICIAN: REFERRING PHYSICIAN: JAYDE METZGER MD DATE OF SERVICE: 06/07/18 Discharge Plan Patient Name: ODETTE OH Facility: [facility]:[place] : 1960 Planned Disposition: Home with Home Health Anticipated Discharge Date: 06/06/18 Discharge Date: 06/06/2018 Expected LOS: 1 Initial Reviewer: [email or web address] Initial Review Date: 06/05/2018 Generated: 06/07/18 1:18 pm Comments DCP- Discharge Planning Updated by [email or web address]: Jeff Hedrick on 06/07/18 11:[address] Patient Name: ODETTE OH Encounter No: [id number] : 1960 Primary Insurance: MEDICAID [place] Anticipated DC Date: 06-06-2018 Planned Disposition: Home with Home Health External Planned Provider: [facility] DCP follow-up note: CM RECEIVED CALL FROM [facility], , SPOKE TO BOB WHO INFORMED CM THAT THE HOME HEALTH NURSE MET WITH PT AT DAUGHTERS HOME TODAY, HE REFUSED HOME HEALTH STATING HIS DAUGHTER IS DOING HIS WOUND CARE ON [place], HE IS NOT GOING TO TAKE HIS MEDICATION AND DID NOT WANT HOME HEALTH SERVICES. CM NOTIFIED RENAL NURSE SUMANTH WAN AND DR. CHAND AT [facility]. Jeff Hedrick, CASE MANAGEMENT DCP- Discharge Planning Updated by [email or web address]: Jeff Hedrick on 06/06/18 11:[address] Patient Name: ODETTE OH Admission Status: ER Accout number: [id number] Admission Date: 06-05-2018 : 1960 Admission Diagnosis: Attending: JAYDE METZGER Current LOS: 1 Anticipated DC Date: 06-06-2018 Planned Disposition: Home with Home Health Primary Insurance: MEDICAID [place] PLANNED EXTERNAL PROVIDER: [facility] Discharge Planning Comments: CM RECEIVED DISCHARGE AND HOME HEALTH ORDER. CM MET WITH PT IN ROOM TO DISCUSS DISCHARGE PLANNING AND NEEDS. PT REPORTS LIVING AT HOME INDEPENDENTLY WITH A FRIEND. PT HAS NO MEDICAL EQUIPMENT AND NO OUTSIDE SERVICES ASSISTING IN THE HOME. PT ATTENDS DIALYSIS MWF AT 1030 AT [facility] IN [place], FAMILY TRANSPORTATION, [place] UTILIZES [facility] MEDICAID TRANSPORTATION. CM DISCUSSED AVAILABILITY OF HOME HEALTH, REHAB SERVICES AND MEDICAL EQUIPMENT. PT WILL ACCEPT HOME HEALTH FOR WOUND CARE, WILL BE GOING HOME WITH DAUGHTER IN [place] WHO WILL BE ABLE TO ASSIST HIM. PT REPORTS HIS DAUGHTER ROMA WILL PICK HIM UP FOR DISCHARGE HOME TODAY. CHOICE SIGNED FOR NO HOME HEALTH PROVIDER. DISCHARGE ADDRESS CONFIRMED WITH [place]: [place], [address] [place] [address]. [phone]. CM CALLED [facility], , SPOKE TO BOB WHO TOOK REFERRAL AND WILL CHECK WITH HER CLAM BED LABORER FOR ACCEPTANCE DETERMINATION AND CALL CM BACK. CM FAXED REFERRAL TO [facility] AT [phone]. CM WAITING ADMISSION DETERMINATION FROM [facility]. CASTING SUPERVISOR NURSE NOTIFIED. Pocket Secretary Assembler: Jeff Hedrick Appended by Jeff Hedrick on 06/06/2018 12:29 CDT: CM RECEIVED CALL FROM BOB AT [facility], , WHO REPORTS THEY WILL ACCEPT PT FOR ADMIT TOMORROW. CM NOTIFIED CASTING SUPERVISOR NURSE. NO FURTHER DISCHARGE NEEDS IDENTIFIED AT THIS TIME. JEFF HEDRICK, CASE MANAGEMENT DCPIA - Discharge Planning Initial Assessment Updated by [email or web address]: Jeff Hedrick on 06/06/18 10:43 am * Is the patient Alert and Oriented? Yes * How many steps to enter\exit or inside your home? NONE * PCP Delia BROWN * [facility] * Preadmission Environment Home with Family * ADLs Independent * Equipment None * Other Equipment NO MEDICAL EQUIPMENT PROVIDER PREFERENCE * List name and contact numbers for known caregivers / representatives who currently or will assist patient after discharge: [place], [place] ADDRESS: [place], [address] [place] [address]. [phone] * Verbal permission to speak to the caregivers and representatives has been obtained from the patient. Yes * Community resources currently utilized Other * Please name any agencies selected above. -[facility] IN [place], MWF, 1030AM, FAMILY TO ASSIST WITH TRANSPORT -PT DOES UTILIZE [place] MEDICAID TRANSPORTATION NEEDED. * Additional services required to return to the preadmission environment? Yes * Can the patient safely return to the preadmission environment? Yes * Has this patient been hospitalized within the prior 30 days at any hospital? Yes Coverage Notice Reviewer: [email or web address] Clovis Hedrick Notice Issued Date-Time: 06/06/2018 11:00 Notice Type: Patient Choice Letter Notice Delivered To: Patient Relationship to Patient: Bowling Ball Weigher And Packer Name: Delivery Method: HAND - Hand Delivered Arlette Days: Prior Verbal Notification: Recipient Understood Notice: Yes Recipient Signature: Yes Med Rec Note Co-signed by Attending: Coverage Notice Comment: [facility] Last DP export: 06/06/18 11:33 Patient Name: ODETTE OH Page 11829 at 1218 All edits/amendments must be made on the electronic document DICTATION DATE: 06/07/181217 AUTO FORMER MACHINE OPERATOR: LUH 06/07/181217 RPT#: [id number] DC DATE:06/06/18 STATUS: DIS IN [facility] [address] [place] [address] END OF REPORT
[2018-06-05 08:20] LABS: BASOPHILS 0.1 % (0-2); EOSINOPHILS 1.2 % (0-7); HEMATOCRIT 27.1 % (42.0-54.0); HEMOGLOBIN 8.5 g/dL (13.5-17.5); IMMATURE GRANULOCYTES 0.1 % (0-5); LYMPHOCYTES 16.2 % (15-50); MCH 29.3 pg (26.0-34.0); MCHC 31.4 g/dL (31.0-37.0); MCV 93.4 fL (80.0-100.0); MEAN PLATELET VOLUME 9.4 fL (7.4-10.4); MONOCYTES 10.2 % (2-11); NEUTROPHILS 72.2 % (40-80); PLATELET COUNT 133 10x3/uL (130-400); RDW 16.6 % (11.5-14.5)
[2018-06-05 08:26] LABS: ALBUMIN 2.4 g/dL (3.4-5.0); ANION GAP 15.4 mmol/L (8-16); BILIRUBIN - TOTAL 0.51 mg/dL (0.2-1.3); CALCIUM 7.3 mg/dL (8.5-10.1); CARBON DIOXIDE 26.2 mmol/L (21.0-32.0); CREATININE - SERUM 8.7 mg/dL (0.6-1.3); MAGNESIUM - SERUM 2.2 mg/dL (1.8-2.4); PHOSPHOROUS 3.9 mg/dL (2.5-4.9); POTASSIUM - SERUM 3.6 mmol/L (3.5-5.1); PROTEIN - SERUM 6.9 g/dL (6.4-8.2)
[2018-06-05 10:09] VITALS: BP 153/94; Ht 177.8 cm; Wt 74.1 kg
[2018-06-05 11:08] VITALS: BP 153/94
[2018-06-05 16:16] VITALS: BP 202/110
[2018-06-05 20:00] VITALS: BP 189/91
[2018-06-06 00:51] VITALS: BP 172/94
[2018-06-06 04:57] VITALS: BP 149/89
[2018-06-06 06:01] LABS: BASOPHILS 0.2 % (0-2); EOSINOPHILS 2.2 % (0-7); HEMATOCRIT 29.6 % (42.0-54.0); HEMOGLOBIN 9.3 g/dL (13.5-17.5); IMMATURE GRANULOCYTES 0.3 % (0-5); LYMPHOCYTES 18.6 % (15-50); MCH 29.4 pg (26.0-34.0); MCHC 31.4 g/dL (31.0-37.0); MCV 93.7 fL (80.0-100.0); MONOCYTES 10.6 % (2-11); NEUTROPHILS 68.1 % (40-80); PLATELET COUNT 155 10x3/uL (130-400); RBC 3.16 10x6/uL (4.20-6.10); RDW 16.4 % (11.5-14.5)
[2018-06-06 06:10] LABS: CALCIUM 7.7 mg/dL (8.5-10.1); CARBON DIOXIDE 27.6 mmol/L (21.0-32.0); CREATININE - SERUM 6.4 mg/dL (0.6-1.3); POTASSIUM - SERUM 3.6 mmol/L (3.5-5.1)
[2018-06-06 07:49] VITALS: BP 165/84
[2018-06-06] MEDS ORDERED: ULTRAM50 MG PO (10:50)
[2018-06-06 11:21] VITALS: BP 157/79
== END 2018-06-06 14:10 | disposition home health service (06) | DRG 291 ==
LOC: D.ER 06:46 → D.M2 08:46 → OBSVTIME 08:46 → D.M2 08:47
PROVIDERS: Family Medicine
PROC: 5A1D70Z Performance of Urinary Filtration, Intermittent, Less than 6 Hours Per Day (ICD-10-PCS; principal; 2018-06-05)
DX: I13.2 Hypertensive heart and chronic kidney disease with heart failure and with stage 5 chronic kidney disease, or end stage renal disease (principal); N18.6 End stage renal disease; D68.9 Coagulation defect, unspecified; I82.722 Chronic embolism and thrombosis of deep veins of left upper extremity; N25.81 Secondary hyperparathyroidism of renal origin; E11.22 Type 2 diabetes mellitus with diabetic chronic kidney disease; I50.9 Heart failure, unspecified; F17.210 Nicotine dependence, cigarettes, uncomplicated; Z99.2 Dependence on renal dialysis; E78.5 Hyperlipidemia, unspecified; D63.1 Anemia in chronic kidney disease; S81.812A Laceration without foreign body, left lower leg, initial encounter; V78.4XXA Person boarding or alighting from bus injured in noncollision transport accident, initial encounter; Z79.01 Long term (current) use of anticoagulants; F10.10 Alcohol abuse, uncomplicated; F19.10 Other psychoactive substance abuse, uncomplicated; Z91.15 Patient's noncompliance with renal dialysis

== ENCOUNTER 2018-06-10 11:19 | Inpatient (IN) | payer MEDICAID ==
[~2018-06-10] VITALS: Ht 177.8 cm; Wt 79.2 kg
--- NOTE | ~2018-06-10 | MORECARE ---
CASE MANAGEMENT DISCHARGE SUMMARY PATIENT: ODETTE OH UNIT: [id number] ADM DATE: 06/10/18 AGE: 57 : 64 SEX: M ROOM/BED: D.2130 AUTHOR: ETHAN MAHONEY PHYSICIAN: REFERRING PHYSICIAN: ZAHRA THORNTON MD DATE OF SERVICE: 06/10/18 Discharge Plan Patient Name: ODETTE OH [facility] [facility] 1960 Planned Disposition: Anticipated Discharge Date: 06/12/18 Discharge Date: Expected LOS: 2 Initial Reviewer: [email or web address] Initial Review Date: 06/10/2018 Generated: 06/10/18 8:04 pm Patient Name: ODETTE OH Page 20495 at 1904 All edits/amendments must be made on the electronic document DICTATION DATE: 06/10/181902 TECHNICAL MARKETING CONSULTANT: LUH 06/10/181902 RPT#: [id number] DC DATE: STATUS: ADM IN [facility] [address] [place] [address] END OF REPORT
--- NOTE | ~2018-06-10 | MORECARE ---
CASE MANAGEMENT DISCHARGE SUMMARY PATIENT: ODETTE OH UNIT: [id number] ADM DATE: 06/10/18 AGE: 57 : 64 SEX: M ROOM/BED: D.2130 AUTHOR: MARU,DOC PHYSICIAN: REFERRING PHYSICIAN: ZAHRA THORNTON MD DATE OF SERVICE: 06/10/18 Discharge Plan Patient Name: ODETTE OH Facility: [facility]:[place] : 1960 Planned Disposition: Anticipated Discharge Date: 06/12/18 Discharge Date: Expected LOS: 2 Initial Reviewer: [email or web address] Initial Review Date: 06/10/2018 Generated: 06/10/18 8:10 pm Comments DCP- Discharge Planning Updated by [email or web address]: Anna Carrera on 06/10/18 6:[address] Patient Name: ODETTE OH Admission Status: ER Accout number: [id number] Admission Date: 06-10-2018 : 1960 Admission Diagnosis: Attending: ZAHRA THORNTON Current LOS: 1 Anticipated DC Date: 06-12-2018 Planned Disposition: Primary Insurance: MEDICAID [place] Discharge Planning Comments: CM met with patient to complete initial dc planning assessment. CM educated patient on the CM role and verbal consent given by patient to complete assessment. Patient lives at home with his daughter in [place]. At discharge patient plans to return to his daughter's home and feels this is a safe discharge. He reports his family always helps him when needed. He reports he has a good support system. Patient denied known discharge needs at this time but stated he may need HH again for his leg. CM will continue to follow and will assist as needed with dc plans/needs. See below for more assessment information. Benefits Counselor: Anna Carrera RN, [facility] DCPIA - Discharge Planning Initial Assessment Updated by [email or web address]: Anna Carrera on 06/10/18 7:04 pm * Is the patient Alert and Oriented? Yes * How many steps to enter\exit or inside your home? two * PCP Dr. Holland in [place] * Pharmacy [facility] in [place] * Preadmission Environment Home with Family * ADLs Partial Dependent * Partial ADLs (Assistance needed) Medication Management * Equipment None * Other Equipment Dialysis M-W-F in [place]. [facility] transports patient to and from dialysis unit. * List name and contact numbers for known caregivers / representatives who currently or will assist patient after discharge: Leah Oh - daughter - [phone] Matt Reynolds - brothe - [phone] Jacque Reynolds - sister - [phone] * Verbal permission to speak to the caregivers and representatives has been obtained from the patient. Yes * Community resources currently utilized None * Please name any agencies selected above. Has used [facility] with last discharge but stated he told them they didn't have to come back. Unsure if he is a current patient at this time or not. He stated they left him a card an told him to call them if he needed them. * Additional services required to return to the preadmission environment? No * Can the patient safely return to the preadmission environment? Yes * Has this patient been hospitalized within the prior 30 days at any hospital? Yes Last DP export: 06/10/18 6:04 Patient Name: ODETTE OH Page [id number] at 1910 All edits/amendments must be made on the electronic document DICTATION DATE: 06/10/181909 CHANGE HOUSE ATTENDANT: [facility] 06/10/181909 RPT#: [id number] DC DATE: STATUS: ADM IN [facility] [address] [place] [address] END OF REPORT
--- NOTE | ~2018-06-10 | EC ---
PATIENT:ODETTE OH DATE OF SERVICE: 06/10/18 SEX: M MEDICAL RECORD: [id number] DATE OF : 64 LOCATION:D.M2 D.213 AGE OF PATIENT: 57 ADMISSION DATE: 06/10/18 REFERRING PHYSICIAN: INTERPRETING PHYSICIAN: KENYATTA MURPHY MD ECHOCARDIOGRAM REPORT ECHO CHARGES 4 ECHO COMPLETE Date: 06/11/18 CLINICAL DIAGNOSIS: CHF ECHOCARDIOGRAPHIC MEASUREMENTS (adult normal given) AC root (d.<3.7cm) 3.7 cm LV Septum d (<1.2 cm> 1.4 cm Valve Excursion 1.7 cm LV Septum (systole) 1.5 cm Left Atria (s.<4.0cm> 3.7 cm LVPW d(<1.2cm) 0.7 cm RV (d.<2.3cm) 3.5 cm LVPW (sytole) 1.0 cm LV diastole(<5.6CM) 6.0 cm MV E-F(>70mm/sec) cm LV systole 5.4 cm LVOT Diameter 1.7 cm MV exc.(>10mm) cm Est.ejection fraction (50-75%) % DOPPLER: LVIT cm/sec A 85 cm/sec E 100 cm/sec LA cm/sec RVSP 66.3 mmHg LVOT 74 cm/sec AOP1/2T m/s Asc. Ao 152 cm/sec RVOT 70 cm/sec RA cm/sec PA 86 cm/sec AV Gradient Peak 9.2 mmHg AV Mean 5.8 mmHg AV Area 0.9 cm MV Gradient Peak 9.2 mmHg MV Mean 4.6 mmHg MV Area cm COMMENTS: Scale Installer: Cesar [facility] Butt Trimmer: 4 Dr. Murphy TAPE# PACS Pericardial Effusion N DATE OF SERVICE: PROCEDURE: Transthoracic echocardiogram. FINDINGS: 1. The left ventricle was mildly dilated. The ejection fraction, however, is normal to hyperdynamic at 55% to 60%. Inflow characteristics show pseudonormalization pattern. There is moderate concentric left ventricular hypertrophy. 2. The right ventricle is mildly dilated. ECHOCARDIOGRAM REPORT [id number] ODETTE OH 3. The left atrium appears to be mildly dilated. 4. The aortic valve is normal. 5. The mitral valve has mild mitral regurgitation, otherwise normal. 6. The tricuspid valve has mild tricuspid regurgitation with an RVSP of 60 to 70 mmHg. 7. The right atrium is dilated. CONCLUSIONS: The patient has hypertensive heart disease with left ventricular hypertrophy. Left ventricle itself is hyperdynamic, however, inflow characteristics are pseudonormalized and there are elevations in the pulmonary systolic pressures that are in moderate range, possibly the patient has elevated left ventricular end-diastolic pressures. TRANSINT:[id number] Voice Confirmation ID: [id number] DOCUMENT ID: [id number] KENYATTA MURPHY MD at 0916 CC: [id number] DICTATION DATE: 06/12/18 0542 DIRECTOR OF RECRUITING: 06/12/18 0741 DIS IN 06/16/18 [facility] [address] [place] [address]
--- NOTE | ~2018-06-10 | MORECARE ---
CASE MANAGEMENT DISCHARGE SUMMARY PATIENT: ODETTE OH UNIT: [id number] ADM DATE: 06/10/18 AGE: 57 : 64 SEX: M ROOM/BED: D.2130 AUTHOR: MARUDOC PHYSICIAN: REFERRING PHYSICIAN: ZAHRA THORNTON MD DATE OF SERVICE: 06/12/18 Discharge Plan Patient Name: ODETTE OH Facility: [facility]:[place] : 1960 Planned Disposition: Anticipated Discharge Date: 06/12/18 Discharge Date: Expected LOS: 2 Initial Reviewer: [email or web address] Initial Review Date: 06/10/2018 Generated: 06/12/18 10:24 am Comments DCP- Discharge Planning Updated by [email or web address]: Anna Carrera on 06/10/18 6:[address] Patient Name: ODETTE OH Admission Status: ER Accout number: [id number] Admission Date: 06-10-2018 : 1960 Admission Diagnosis: Attending: ZAHRA THORNTON Current LOS: 1 Anticipated DC Date: 06-12-2018 Planned Disposition: Primary Insurance: MEDICAID [place] Discharge Planning Comments: CM met with patient to complete initial dc planning assessment. CM educated patient on the CM role and verbal consent given by patient to complete assessment. Patient lives at home with his daughter in [place]. At discharge patient plans to return to his daughter's home and feels this is a safe discharge. He reports his family always helps him when needed. He reports he has a good support system. Patient denied known discharge needs at this time but stated he may need HH again for his leg. CM will continue to follow and will assist as needed with dc plans/needs. See below for more assessment information. Ehs Manager: Anna Carrera RN, [facility] DCPIA - Discharge Planning Initial Assessment Updated by [email or web address]: Anna Carrera on 06/10/18 7:04 pm * Is the patient Alert and Oriented? Yes * How many steps to enter\exit or inside your home? two * PCP Dr. Holland in [place] * Pharmacy [facility] in [place] * Preadmission Environment Home with Family * ADLs Partial Dependent * Partial ADLs (Assistance needed) Medication Management * Equipment None * Other Equipment Dialysis M-W-F in [place]. [facility] transports patient to and from dialysis unit. * List name and contact numbers for known caregivers / representatives who currently or will assist patient after discharge: Leah Oh - daughter - [phone] Matt Reynolds - brothe - [phone] Jacque Reynolds - sister - [phone] * Verbal permission to speak to the caregivers and representatives has been obtained from the patient. Yes * Community resources currently utilized None * Please name any agencies selected above. Has used [facility] with last discharge but stated he told them they didn't have to come back. Unsure if he is a current patient at this time or not. He stated they left him a card an told him to call them if he needed them. * Additional services required to return to the preadmission environment? No * Can the patient safely return to the preadmission environment? Yes * Has this patient been hospitalized within the prior 30 days at any hospital? Yes Last DP export: 06/10/18 6:10 Patient Name: ODETTE OH Page 63727 at 0924 All edits/amendments must be made on the electronic document DICTATION DATE: 06/12/18923 [employer] SUPERVISOR: [facility] 06/12/18923 RPT#: [id number] DC DATE: STATUS: ADM IN [facility] [address] [place] [address] END OF REPORT
--- NOTE | ~2018-06-10 | HEMODYNAMI ---
PATIENT:ODETTE OH MEDICAL RECORD: [id number] : 64 LOCATION:[address] ADMISSION DATE: 06/10/18 Generatedon:06/15/201815:32 Patient name: ODETTE OH Patient #: [id number] SSN: : Date of study: 06/15/2018 Page: Of Hemodynamic Procedure Report Patient Data Patient Demographics Procedure consent was obtained First Name: ODETTE Gender: Male Last Name: ADRIANO : 1960 Middle Initial: L Age: 57 year(s) Patient #: [id number] Race: Black Additional ID: [id number] Contact details Address: [address] [place] [address] State: [place] City: [place] Zip code: [address] Past Medical History Allergies Allergen Reaction Date Comments Reported Other allergy 12/23/2017 Minoxidil Other allergy 01/20/2018 minoxidil Admission Admission Data Admission Date: 06/10/2018 Admission Time: 17:38 Room #: D.2130 Height (in.): 70 BSA: 1.97 (m2) Height (cm.): 177.8 BMI: 24.97 (kg/m2) Weight (lbs.): 174 Weight (kg.): 78.93 Procedure Procedure Types Cath Procedure Peripheral Cath Diagnostic Procedure Document Management Consultant Peripheral Procedures Fistula Fistulagram Single Access Procedure Description Procedure Date Procedure Date: 06/15/2018 Procedure Start Time: 13:47 Procedure Staff Name Function Mindi Robb RT Client Technologies Analyst Odette Dooley RT Scrub Radha Saenz RN Nurse Ibis Dunlap MD Performing Physician Michelle Roach RN Nurse Procedure Data Cath Procedure Fluoroscopy Diagnostic fluoroscopy Total fluoroscopy Time: 5.2 time: 5.2 min min Diagnostic fluoroscopy Total fluoroscopy dose: 267 dose: 267 mGy mGy Contrast Material Contrast Material Type Amount (ml) Isovue 300 60 Diagnostic catheters Device Type Used For End Catheter Placement Merit Impress KA2 5Fr 65CM catheter ([id number]) Procedure Medications Medication Administration Route Dosage Heparin Flush Bag added to field 2 bags (1000units/500ml NS) Lidocaine 1% added to field 20 Versed 1 mg Fentanyl I.V. 50 mcg Versed 1 mg Fentanyl I.V. 50 mcg Ancef (1Gm/50ml NS) I.V.P.B 1 g Heparin Bolus 2100 units Heparin Bolus 2000 units Hemodynamics Rest BSA: 1.97 (m2) O2 Consumption: Estimated: 236.18 (ml/min) O2 Consumption indexed : Estimated:119.89 (ml/min/m) Heart Rate: 74 (bpm) Snapshots Pre Cath Intra NCS Post Cath Vital Signs Time Heart Resp SPO2 etCO2 NIBP (mmHg) Rhythm Pain Sedation Rate (ipm) (%) (mmHg) Status Level (bpm) 13:38:12 75 19 11.1 159/99(133) NSR 0 (11) 10(A) , No pain 13:42:38 72 14 6.7 160/90(129) NSR 0 (11) 10(A) , No pain 13:47:05 71 10 2.2 163/91(123) NSR 0 (11) 10(A) , No pain 13:51:27 74 13 95 12.6 164/95(134) NSR 0 (11) 10(A) , No pain 13:55:49 71 12 92 8.1 159/89(128) NSR 0 (11) 10(A) , No pain 14:00:11 72 10 93 18.6 154/90(127) NSR 0 (11) 10(A) , No pain 14:04:31 72 11 93 20.1 161/93(126) NSR 0 (11) 10(A) , No pain 14:08:49 71 10 94 3.7 158/92(133) NSR 0 (11) 10(A) , No pain 14:13:07 72 12 94 16.3 156/98(125) NSR 0 (11) 10(A) , No pain 14:17:28 69 11 96 20.8 174/102(144) NSR 0 (11) 10(A) , No pain 14:21:50 71 11 96 19.3 161/85(135) NSR 0 (11) 10(A) , No pain 14:26:10 75 11 99 21.6 161/98(139) NSR 0 (11) 10(A) , No pain 14:30:34 73 8 93 17.1 161/93(135) NSR 0 (11) 10(A) , No pain 14:34:56 71 10 92 2.9 156/94(131) NSR 0 (11) 10(A) , No pain 14:39:17 69 10 93 0 156/94(130) NSR 0 (11) 10(A) , No pain 14:43:39 70 10 94 2.9 152/95(128) NSR 0 (11) 10(A) , No pain 14:48:01 70 14 96 3.7 157/86(126) NSR 0 (11) 10(A) , No pain 14:52:21 70 9 98 6.7 161/92(136) NSR 0 (11) 10(A) , No pain 14:56:41 75 12 100 14.1 162/97(131) NSR 0 (11) 10(A) , No pain 15:00:59 74 12 100 7.4 157/96(124) NSR 0 (11) 10(A) , No pain 15:05:19 73 13 99 5.9 161/90(126) NSR 0 (11) 10(A) , No pain 15:09:43 75 10 100 5.9 160/96(133) NSR 0 (11) 10(A) , No pain 15:14:05 74 9 100 10.4 165/96(134) NSR 0 (11) 10(A) , No pain 15:18:30 75 9 100 13.4 169/97(149) NSR 0 (11) 10(A) , No pain Medications Time Medication Route Dose Verified Delivered Reason Notes Effectiveness by by 13:50:16 Heparin Flush added to 2 bags Ibis Dunlap used for Bag field MD GOMEZ procedure (1000units/500ml NS) 13:50:28 Lidocaine 1% added to 20ml vial Ibis Dunlap used for field MD GOMEZ procedure 13:50:43 Versed 1 mg Ibis Dunlap Radha for MD Saenz RN sedation 13:50:54 Fentanyl I.V. 50 mcg Ibsi Dunlap Radha for MD Saenz RN sedation 14:00:10 Versed 1 mg Ibis Dunlap Rdaha for MD Saenz RN sedation 14:00:18 Fentanyl I.V. 50 mcg M J Long Radha for MD Dany LEVIN sedation 15:12:15 Ancef (1Gm/50ml I.V.P.B 1 g M J Long Radha Per NS) MD Dany LEVIN protocol 15:14:14 Heparin Bolus TO 2100 M J Long Radha Per DIALYSIS units MD Dany LEVIN protocol BLUE PORT 15:14:42 Heparin Bolus TO 2000units M J Long Radha Per DIALYSIS MD Dany LEVIN protocol RED PORT Procedure Log Time Note 13:11:30 Patient Height : 70 inches 13:11:36 Patient Weight : 174 lbs 13:12:09 Use device set IR Diagnostic 13:35:08 DOC .035 wire ([id number]) opened to sterile field. 13:35:10 Tegaderm 4 x 4 (1626W) opened to sterile field. 13:35:11 Sterile Angiographic Pack opened to sterile field. 13:35:12 Bag Decanter (2002S) opened to sterile field. 13:35:24 Time tracking: Regular hours (M-F 7:00 - 5:00) 13:35:48 St Jose 7FR sheath opened to sterile field. 13:36:11 - 13:36:23 Plan of Care:Hemodynamics will remain stable., Cardiac rhythm will remain stable., Comfort level will be maintained., Respiratory function will remain adequate., Patient/ family verbilizes understanding of procedure., Procedure tolerated without complication., Recovers from procedure without complications.. 13:36:45 Patient received from Med II to IR Alert and oriented. Tansferred to table in Supine position. 13:36:50 Signed procedure consent form obtained from patient. 13:36:55 ECG and BP/O2 sat monitors applied to patient. 13:36:57 Vital chart was started 13:36:59 Baseline sample Acquired. 13:37:02 Full Disclosure recording started 13:37:03 - 13:37:12 H&P Date Dictated: 06/15/2018 Within 30 days and on chart.. 13:37:14 Pre-op teaching completed and patient verbalized understanding. 13:37:14 Pre-procedure instructions explained to patient. 13:37:17 Family unavailable. 13:37:19 Patient NPO since Midnight. 13:37:37 Is the patient allergic to Iodine/contrast media? No. 13:38:30 ----Pre-sedation anethsthesia assessment.---- 13:38:33 Patient diabetic? No. 13:38:41 Previous problem with sedation/anesthesia? No ? 13:38:51 Snore? Yes 13:38:53 Sleep apnea? No 13:38:55 Deviated septum? No 13:38:58 Opens mouth fully? Yes 13:39:03 Sticks out tongue? Yes 13:39:08 Airway obstruction? Yes chf 13:39:14 Dentures? No ? 13:39:29 IV patent on arrival in right IJ with D5/.45%NaCl at [facility]. 13:39:40 Left Arm area was prepped with chlora-prep and draped in sterile fashio n 13:39:42 - 13:46:42 Physician arrived 13:46:45 --------ALL STOP TIME OUT------ 13:46:46 Final Timeout: patient, procedure, and site verified with staff and physician. All members of the team are in agreement. 13:47:23 Procedure started. 13:47:30 Local anesthetic to left arm with Lidocaine 1% by Ibis Dunlap MD.INITIAL ACCESS ONLY 13:50:16 Heparin Flush Bag (1000units/500ml NS) 2 bags added to field was administered by Ibis Dunlap MD; used for procedure; 13:50:28 Lidocaine 1% 20ml vial added to field was administered by Ibis Dunlap MD; used for procedure; 13:50:43 Versed 1 mg was administered by Radha Saenz RN; for sedation; 13:50:54 Fentanyl 50 mcg I.V. was administered by Radha Saenz RN; for sedation ; 13:51:54 Venous access obtained using ultrasound guidance. 13:56:12 A [employer] Systems KA2 5Fr 65CM catheter ([id number]) was advanced over the wire and used for . 13:59:32 Venogram performed 14:00:10 Versed 1 mg was administered by Radha Saenz RN; for sedation; 14:00:18 Fentanyl 50 mcg I.V. was administered by Radha Saenz RN; for sedation ; 14:01:34 PEDRAZA 260 wire ([id number]) opened to sterile field. 14:08:21 Protege GPS 12 x 40 X 120 Stent ([id number]) was deployed across Undefined1 . 14:09:23 Inflate balloon Inflation number: 1 A Evercross 10 x 40 x 135 Balloon ([id number]) was prepped and advanced across the Undefined1, then inflated. 14:26:15 Inflate balloon Inflation number: 2 A Evercross 12 x 20 x 135 ([id number]) was prepped and advanced across the Undefined1, then inflated . 14:49:16 prepped rt neck for hemosplit placement 14:50:39 Micropuncture VSI 4FR kit opened to sterile field. 15:02:30 SUTURE SILK 2-0 BLK BR FS 18 I opened to sterile field. 15:02:31 SUTURE ETHILON 2-0 BLK MONO FS opened to sterile field. 15:03:29 23cm Hemosplit placed in the right IJ and sutured in 15:08:54 Procedure ended.(Physican Out) 15:09:07 Fluoroscopy time 05.20 minutes. 15:09:13 Fluoroscopy dose: 267 mGy 15:09:13 Flurop Dose total: 267 15:11:29 Contrast amount:Isovue 300 60ml. 15:11:34 Procedure and supply charges have been captured, reviewed, submitted an d are correct. 15:12:15 Ancef (1Gm/50ml NS) 1 g I.V.P.B was administered by Radha Saenz RN; Per protocol; 15:14:14 Heparin Bolus 2100 units TO DIALYSIS BLUE PORT was administered by Radha Saenz RN; Per protocol; 15:14:42 Heparin Bolus 2000units TO DIALYSIS RED PORT was administered by Radha Saenz RN; Per protocol; 15:20:13 Report given to Med II. 15:20:58 Vital chart was stopped 15:21:03 Full Disclosure recording stopped Intervention Summary Intervention Notes Time ActionType Lesion and Equipment Used Action# Pressure Duration Attributes 14:08:21 Deploy self Undefined1 Protege GPS 12 x 1 expanding 40 X 120 Stent stent ([id number]) 14:09:23 Inflate Undefined1 Evercross 10 x 40 1 0 00:00 balloon x 135 Balloon ([id number]) 14:26:15 Inflate Undefined1 Evercross 12 x 20 2 0 00:00 balloon x 135 ([id number]) Device Usage Item Name Manufacture Quantity Catalog Number Hospital Part Curr ent Minimal Lot# / Charge Number Stock Stock Serial# Code DOC .035 wire Cook Medical 1 [id number] 6912 77 5 ([id number]) Tegaderm 4 x 4 3M 1 1626W 133097 262764 0028 40 5 (1626W) Sterile Cardinal 1 [id number] 658770 0045 75 5 Angiographic Pack Health Bag Decanter Microtek 1 2001S 141265 53257 9887 87 5 () Medical Inc. St Jose 7FR sheath St Jose 1 [id number] 582586 2245 65 5 [id number] Merit Impress KA2 Merit 1 [id number] 767985 0765 29 5 5Fr 65CM catheter Medical ([id number]) PEDRAZA 260 wire [employer] 1 [id number] 982478 68912 9996 59 5 [id number] ([id number]) Protege GPS 12 x Medtronic 1 [id number] 498864 368229 5849 98 5 [id number] 40 X 120 Stent 0 [id number] ([id number]) [id number] Evercross 10 x 40 Medtronic 1 [id number] 606154 248911 8219 93 5 [id number] x 135 Balloon ([id number]) Evercross 12 x 20 Medtronic 1 [id number] 503639 219198 9279 97 5 [id number] x 135 ([id number]) Micropuncture VSI VSI VASCULAR 1 7266V 960094 7855 34 5 4FR kit SOLUTIONS SUTURE SILK 2-0 Ethicon 1 685H 994007 0532 53 5 BLK BR FS 18 I SUTURE ETHILON 2-0 Ethicon 1 664H 715007 0892 53 5 BLK MONO FS Signature Audit [place] Stage Time Signature Unsigned Intra-Procedure 06/15/2018 Mindi Douglass [facility] RT 3:20:55 PM RT(R) (R) (CV) 06/15/2018 3:31:03 PM Intra-Procedure 06/15/2018 Mindi Zamudio 3:32:23 PM RT(R) [facility] [address] [place] [address]
--- NOTE | ~2018-06-10 | MORECARE ---
CASE MANAGEMENT DISCHARGE SUMMARY PATIENT: ODETTE OH UNIT: [id number] ADM DATE: 06/10/18 AGE: 57 : 64 SEX: M ROOM/BED: D.2130 AUTHOR: MARU,DOC PHYSICIAN: REFERRING PHYSICIAN: ZAHRA THORNTON MD DATE OF SERVICE: 06/16/18 Discharge Plan Patient Name: ODETTE OH Facility: [facility]:[place] : 1960 Planned Disposition: Home Anticipated Discharge Date: 06/16/18 Discharge Date: 06/16/2018 Expected LOS: 6 Initial Reviewer: [email or web address] Initial Review Date: 06/10/2018 Generated: 06/16/18 6:18 pm Comments DCP- Discharge Planning Updated by [email or web address]: Jeff Christopher on 06/15/18 11:[address] Patient Name: ODETTE OH Encounter No: [id number] : 1960 Primary Insurance: MEDICAID [place] Anticipated DC Date: 06-16-2018 Planned Disposition: Home DCP follow-up note: CM RECEIVED DISCHARGE PLANNING ORDER, CM MET WITH PT IN ROOM TO DISCUSS DISCHARGE NEEDS AND PLANNING. CM DISCUSSED AVAILABILITY OF HOME HEALTH, REHAB SERVICES AND MEDICAL EQUIPMENT. PT DENIES DISCHARGE NEEDS. STATES HIS DAUGHTER IS DOING WOUND CARE ON HIS LEG AND WILL PICK HIM UP FOR TRANSPORT HOME AT DISCHARGE. PT REPORTS HE WILL DISCHARGE TO HIS DAUGHTERS' HOME, [facility], , [address] [place] [address]. FOR TRANSPORT HOME AT DISCHARGE, CALL PT'S DAUGHTER, [facility] [phone]. Jeff Christopher, SUSI SIMMONS DCP- Discharge Planning Updated by [email or web address]: Anna Carrera on 06/10/18 6:[address] Patient Name: ODETTE OH Admission Status: ER Accout number: [id number] Admission Date: 06-10-2018 : 1960 Admission Diagnosis: Attending: ZAHRA THORNTON Current LOS: 1 Anticipated DC Date: 06-12-2018 Planned Disposition: Primary Insurance: MEDICAID [place] Discharge Planning Comments: CM met with patient to complete initial dc planning assessment. CM educated patient on the CM role and verbal consent given by patient to complete assessment. Patient lives at home with his daughter in [place]. At discharge patient plans to return to his daughter's home and feels this is a safe discharge. He reports his family always helps him when needed. He reports he has a good support system. Patient denied known discharge needs at this time but stated he may need HH again for his leg. CM will continue to follow and will assist as needed with dc plans/needs. See below for more assessment information. Dry Wall Installer: Anna Carrera RN, [facility] DCPIA - Discharge Planning Initial Assessment Updated by [email or web address]: Anna Carrera on 06/10/18 7:04 pm * Is the patient Alert and Oriented? Yes * How many steps to enter\exit or inside your home? two * PCP Dr. Holland in [place] * Pharmacy [facility] in [place] * Preadmission Environment Home with Family * ADLs Partial Dependent * Partial ADLs (Assistance needed) Medication Management * Equipment None * Other Equipment Dialysis M-W-F in [place]. [facility] transports patient to and from dialysis unit. * List name and contact numbers for known caregivers / representatives who currently or will assist patient after discharge: Leah Oh - daughter - [phone] Matt Reynolds - brothe - [phone] Jacque [facility] sister - [phone] * Verbal permission to speak to the caregivers and representatives has been obtained from the patient. Yes * Community resources currently utilized None * Please name any agencies selected above. Has used [facility] with last discharge but stated he told them they didn't have to come back. Unsure if he is a current patient at this time or not. He stated they left him a card an told him to call them if he needed them. * Additional services required to return to the preadmission environment? No * Can the patient safely return to the preadmission environment? Yes * Has this patient been hospitalized within the prior 30 days at any hospital? Yes Last DP export: 06/15/18 11:48 a Patient Name: ODETTE OH Page 41689 at 1719 All edits/amendments must be made on the electronic document DICTATION DATE: 06/16/181717 GROCERY DELIVERER: [facility] 06/16/181717 RPT#: [id number] DC DATE:06/16/18 STATUS: DIS IN [facility] [address] [place] [address] END OF REPORT
--- NOTE | ~2018-06-10 | MORECARE ---
CASE MANAGEMENT DISCHARGE SUMMARY PATIENT: ODETTE OH UNIT: [id number] ADM DATE: 06/10/18 AGE: 57 : 64 SEX: M ROOM/BED: D.2130 AUTHOR: MARU,DOC PHYSICIAN: REFERRING PHYSICIAN: ZAHRA THORNTON MD DATE OF SERVICE: 06/15/18 Discharge Plan Patient Name: ODETTE OH Facility: [facility]:[place] : 1960 Planned Disposition: Home Anticipated Discharge Date: 06/16/18 Discharge Date: Expected LOS: 6 Initial Reviewer: [email or web address] Initial Review Date: 06/10/2018 Generated: 06/15/18 1:48 pm Comments DCP- Discharge Planning Updated by [email or web address]: Jeff Christopher on 06/15/18 11:[address] Patient Name: ODETTE OH Encounter No: [id number] : 1960 Primary Insurance: MED[place]ID [place] Anticipated DC Date: 06-16-2018 Planned Disposition: Home DCP follow-up note: CM RECEIVED DISCHARGE PLANNING ORDER, CM MET WITH PT IN ROOM TO DISCUSS DISCHARGE NEEDS AND PLANNING. CM DISCUSSED AVAILABILITY OF HOME HEALTH, REHAB SERVICES AND MEDICAL EQUIPMENT. PT DENIES DISCHARGE NEEDS. STATES HIS DAUGHTER IS DOING WOUND CARE ON HIS LEG AND WILL PICK HIM UP FOR TRANSPORT HOME AT DISCHARGE. PT REPORTS HE WILL DISCHARGE TO HIS DAUGHTERS' HOME, [facility], , [address] [place] [address]. FOR TRANSPORT HOME AT DISCHARGE, CALL PT'S DAUGHTER, [facility], . Jeff Christopher, CASE IRIS DCP- Discharge Planning Updated by [email or web address]: Anna Carrera on 06/10/18 6:[address] Patient Name: ODETTE OH Admission Status: ER Accout number: [id number] Admission Date: 06-10-2018 : 1960 Admission Diagnosis: Attending: ZAHRA THORNTON Current LOS: 1 Anticipated DC Date: 06-12-2018 Planned Disposition: Primary Insurance: MEDICAID [place] Discharge Planning Comments: CM met with patient to complete initial dc planning assessment. CM educated patient on the CM role and verbal consent given by patient to complete assessment. Patient lives at home with his daughter in [place]. At discharge patient plans to return to his daughter's home and feels this is a safe discharge. He reports his family always helps him when needed. He reports he has a good support system. Patient denied known discharge needs at this time but stated he may need HH again for his leg. CM will continue to follow and will assist as needed with dc plans/needs. See below for more assessment information. Wind Plant Manager: Anna Carrera RN, [facility] DCPIA - Discharge Planning Initial Assessment Updated by [email or web address]: Anna Carrera on 06/10/18 7:04 pm * Is the patient Alert and Oriented? Yes * How many steps to enter\exit or inside your home? two * PCP Dr. Holland in [place] * Pharmacy [facility] in [place] * Preadmission Environment Home with Family * ADLs Partial Dependent * Partial ADLs (Assistance needed) Medication Management * Equipment None * Other Equipment Dialysis M-W-F in [place]. [facility] transports patient to and from dialysis unit. * List name and contact numbers for known caregivers / representatives who currently or will assist patient after discharge: Leah Oh - daughter - [phone] [facility] brothe - [phone] Jacque [facility] sister - [phone] * Verbal permission to speak to the caregivers and representatives has been obtained from the patient. Yes * Community resources currently utilized None * Please name any agencies selected above. Has used [facility] with last discharge but stated he told them they didn't have to come back. Unsure if he is a current patient at this time or not. He stated they left him a card an told him to call them if he needed them. * Additional services required to return to the preadmission environment? No * Can the patient safely return to the preadmission environment? Yes * Has this patient been hospitalized within the prior 30 days at any hospital? Yes Last DP export: 06/15/18 11:18 a Patient Name: ODETTE OH Page [id number] at 1248 All edits/amendments must be made on the electronic document DICTATION DATE: 06/15/188 SENIOR MILITARY ANALYST: [facility] 06/15/18 1248 RPT#: [id number] DC DATE: STATUS: ADM IN [facility] [address] [facility] [place] [address] END OF REPORT
--- NOTE | ~2018-06-10 | DS ---
PATIENT:ODETTE OH :[birth year] MEDICAL RECORD: [id number] DISCHARGE SUMMARY ADMISSION DATE: 06/10/18 DISCHARGE DATE: 06/16/18 HISTORY OF PRESENT ILLNESS: Mr. Oh is a 57-year-old black male with end-stage renal disease, chronic dietary and medication noncompliance, chronic drug abuse with recurrent positive drug screens for opiates and cocaine. 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 He is now readmitted for the second time with bleeding from his leg due to recurrent falls. HOSPITAL COURSE: The patient's wound was Steri-Stripped. The Eliquis was discontinued. He had vein mapping done on the right extremity in light of the fact that it might require alternate access. He had a venous Doppler done of his left upper extremity that revealed resolution of the DVT. Surgery was consulted, but was unable to perform closure of his fistula or replacement of his catheter. Subsequently, IR was consulted, where he was taken to surgery and had replacement of his Trialysis catheter with his tunneled cath prior to that. He had had an angioplasty and stenting done of a previously proven innominate vein stenosis. Post his PHYTOPATHOLOGIST and stent, his arm was improving and we will continue to use his tunnel hemodialysis catheter for the time being. We were able to preserve the current fistula and not have to do alternate access. His drug screen this time was again positive for opiates and cocaine. DISCHARGE DIAGNOSES: 1. Malfunction of dialysis access requiring PHYTOPATHOLOGIST and stenting and placement of tunneled dialysis catheter. 2. Bleeding post-fall that has resolved. 3. Deep venous thrombosis, left arm that has resolved. 4. End-stage renal disease. 5. Chronic drug abuse. 6. Hypertension. 7. Poor medication compliance. PLAN: The patient will be discharged today. He will be in [facility] on Tuesday. We will use his tunneled dialysis catheter until the edema of his arm improves. He is off anticoagulants. He will continue his renal diet, ambulation as tolerated. DISCHARGE MEDICATIONS: Calcitriol 0.25 mg b.i.d., Nephro-Bettie 1 daily. He will receive Epogen in the dialysis unit, amlodipine 5 mg b.i.d., Renagel 2400 t.i.d., clonidine 0.2 b.i.d., lisinopril 20 b.i.d., isosorbide 60 daily, doxazosin 1 mg b.i.d., Lipitor 10 mg h.s., Protonix 40 mg daily. TRANSINT:[id number] Voice Confirmation ID: [id number] DOCUMENT ID: [id number] DISCHARGE SUMMARY REPORT [id number] ODETTE OH ROBERT MD at 0721 CC: [id number] DICTATION DATE: 06/16/1804 SOLID STATE TESTER: 06/16/18 0744 DIS IN 06/16/18 [facility] [address] [place] [address]
--- NOTE | ~2018-06-10 | MORECARE ---
CASE MANAGEMENT DISCHARGE SUMMARY PATIENT: ODETTE OH UNIT: [id number] ADM DATE: 06/10/18 AGE: 57 : 64 SEX: M ROOM/BED: D.2130 AUTHOR: MARU,DOC PHYSICIAN: REFERRING PHYSICIAN: ZAHRA THORNTON MD DATE OF SERVICE: 06/15/18 Discharge Plan Patient Name: ODETTE OH Facility: [facility]:[place] : 1960 Planned Disposition: Home Anticipated Discharge Date: 06/16/18 Discharge Date: Expected LOS: 6 Initial Reviewer: [email or web address] Initial Review Date: 06/10/2018 Generated: 06/15/18 1:18 pm Comments DCP- Discharge Planning Updated by [email or web address]: Anna Carrera on 06/10/18 6:[address] Patient Name: ODETTE OH Admission Status: ER Accout number: [id number] Admission Date: 06-10-2018 : 1960 Admission Diagnosis: Attending: ZAHRA THORNTON Current LOS: 1 Anticipated DC Date: 06-12-2018 Planned Disposition: Primary Insurance: MEDICAID [place] Discharge Planning Comments: CM met with patient to complete initial dc planning assessment. CM educated patient on the CM role and verbal consent given by patient to complete assessment. Patient lives at home with his daughter in [place]. At discharge patient plans to return to his daughter's home and feels this is a safe discharge. He reports his family always helps him when needed. He reports he has a good support system. Patient denied known discharge needs at this time but stated he may need HH again for his leg. CM will continue to follow and will assist as needed with dc plans/needs. See below for more assessment information. Abstract Maker: Anna Carrera RN, [facility] DCPIA - Discharge Planning Initial Assessment Updated by [email or web address]: Anna Carrera on 06/10/18 7:04 pm * Is the patient Alert and Oriented? Yes * How many steps to enter\exit or inside your home? two * PCP Dr. Holland in [place] * Pharmacy [facility] in [place] * Preadmission Environment Home with Family * ADLs Partial Dependent * Partial ADLs (Assistance needed) Medication Management * Equipment None * Other Equipment Dialysis M-W-F in [place]. [facility] transports patient to and from dialysis unit. * List name and contact numbers for known caregivers / representatives who currently or will assist patient after discharge: Leah Oh - daughter - [phone] Matt Reynolds - brothe - [phone] Jacque Reynolds - sister - [phone] * Verbal permission to speak to the caregivers and representatives has been obtained from the patient. Yes * Community resources currently utilized None * Please name any agencies selected above. Has used [facility] with last discharge but stated he told them they didn't have to come back. Unsure if he is a current patient at this time or not. He stated they left him a card an told him to call them if he needed them. * Additional services required to return to the preadmission environment? No * Can the patient safely return to the preadmission environment? Yes * Has this patient been hospitalized within the prior 30 days at any hospital? Yes Last DP export: 06/12/18 8:24 Patient Name: ODETTE OH Page [id number] at 1218 All edits/amendments must be made on the electronic document DICTATION DATE: 06/15/18 1218 DISPATCHER MOTOR VEHICLE: [facility] 06/15/18 1218 RPT#: [id number] DC DATE: STATUS: [facility] [address] [place] [address] END OF REPORT
[~2018-06-10 11:19] MED LIST changes: +ULTRAM50 MG PO
[2018-06-10 12:02] LABS: BASOPHILS 0.1 % (0-2); EOSINOPHILS 0.3 % (0-7); HEMATOCRIT 27.4 % (42.0-54.0); HEMOGLOBIN 8.9 g/dL (13.5-17.5); IMMATURE GRANULOCYTES 0.2 % (0-5); LYMPHOCYTES 12.4 % (15-50); MCH 29.7 pg (26.0-34.0); MCHC 32.5 g/dL (31.0-37.0); MCV 91.3 fL (80.0-100.0); MEAN PLATELET VOLUME 9.3 fL (7.4-10.4); MONOCYTES 7.9 % (2-11); NEUTROPHILS 79.1 % (40-80); PLATELET COUNT 157 10x3/uL (130-400); RDW 15.9 % (11.5-14.5)
[2018-06-10 12:18] LABS: ALBUMIN 2.7 g/dL (3.4-5.0); ALKALINE PHOSPHATASE 78 U/L (46-116); ALT (SGPT) 18 U/L (10-68); BILIRUBIN - TOTAL 0.84 mg/dL (0.2-1.3); CALC OSMOLALITY 302 mosm/kg (275-300); CARBON DIOXIDE 22.5 mmol/L (21.0-32.0); CHLORIDE - SERUM 104 mmol/L (98-107); CREATININE - SERUM 10.6 mg/dL (0.6-1.3); GLUCOSE 105 mg/dL (74-106); POTASSIUM - SERUM 4.8 mmol/L (3.5-5.1); PROTEIN - SERUM 7.6 g/dL (6.4-8.2); SODIUM 140 mmol/L (136-145); UREA NITROGEN 79 mg/dL (7-18); eGFR NON AFRICAN AMERICAN 5 mL/min (90-120)
[2018-06-10 12:19] LABS: APTT 65.1 SECONDS (22.8-39.4); INR 1.32 (0.85-1.17); PROTIME 15.9 SECONDS (11.6-15.0)
[2018-06-10 12:44] LABS: CKMB 1.9 U/L (0.0-3.6); CREATINE KINASE 71 UL (21-232)
[2018-06-10 12:46] LABS: TROPONIN-I 0.146 ng/mL (0.000-0.060)
[2018-06-10 13:30] VITALS: BP 183/106
[2018-06-10 14:29] VITALS: BP 182/110
[2018-06-10 15:23] VITALS: BP 180/108
[2018-06-10 16:50] VITALS: BP 199/119
[2018-06-10 16:56] VITALS: BP 178/110
[2018-06-10 18:06] VITALS: BP 196/112
[2018-06-11] VITALS (7 sets, daily range): BP systolic 162–194; BP diastolic 93–118
[2018-06-11 05:15] LABS: BASOPHILS 0.1 % (0-2); EOSINOPHILS 0.2 % (0-7); HEMATOCRIT 26.9 % (42.0-54.0); HEMOGLOBIN 8.7 g/dL (13.5-17.5); IMMATURE GRANULOCYTES 0.3 % (0-5); LYMPHOCYTES 12.8 % (15-50); MCH 29.7 pg (26.0-34.0); MCHC 32.3 g/dL (31.0-37.0); MCV 91.8 fL (80.0-100.0); MEAN PLATELET VOLUME 9.4 fL (7.4-10.4); MONOCYTES 9.6 % (2-11); PLATELET COUNT 160 10x3/uL (130-400); RBC 2.93 10x6/uL (4.20-6.10); RDW 16.1 % (11.5-14.5); WBC 9.9 10x3/uL (4.8-10.8)
[2018-06-11 05:36] LABS: ANION GAP 22.6 mmol/L (8-16); CALCIUM 8.3 mg/dL (8.5-10.1); CARBON DIOXIDE 18.9 mmol/L (21.0-32.0); CREATININE - SERUM 11.3 mg/dL (0.6-1.3); MAGNESIUM - SERUM 2.4 mg/dL (1.8-2.4); PHOSPHOROUS 5.3 mg/dL (2.5-4.9); POTASSIUM - SERUM 5.5 mmol/L (3.5-5.1)
[2018-06-11 14:04] LABS: CREATINE KINASE 73 UL (21-232)
[2018-06-11 14:06] LABS: TROPONIN-I 0.167 ng/mL (0.000-0.060)
[2018-06-11 18:45] LABS: CKMB 3.3 U/L (0.0-3.6); CREATINE KINASE 75 UL (21-232)
[2018-06-11 18:46] LABS: TROPONIN-I 0.132 ng/mL (0.000-0.060)
[2018-06-12 00:22] LABS: CKMB 3.5 U/L (0.0-3.6); CREATINE KINASE 77 UL (21-232)
[2018-06-12 00:25] LABS: TROPONIN-I 0.113 ng/mL (0.000-0.060)
[2018-06-12 01:24] VITALS: BP 155/94
[2018-06-12 05:23] LABS: BASOPHILS 0 % (0-2); EOSINOPHILS 3.7 % (0-7); HEMATOCRIT 23.4 % (42.0-54.0); IMMATURE GRANULOCYTES 0.4 % (0-5); LYMPHOCYTES 24.1 % (15-50); MCH 29.2 pg (26.0-34.0); MCHC 32.1 g/dL (31.0-37.0); MCV 91.1 fL (80.0-100.0); MEAN PLATELET VOLUME 9.6 fL (7.4-10.4); MONOCYTES 9.8 % (2-11); PLATELET COUNT 167 10x3/uL (130-400); RBC 2.57 10x6/uL (4.20-6.10); RDW 16.1 % (11.5-14.5)
[2018-06-12 05:26] LABS: HEMOGLOBIN 7.5 g/dL (13.5-17.5); WBC 5.1 10x3/uL (4.8-10.8)
[2018-06-12 05:36] VITALS: BP 166/90
[2018-06-12 05:42] LABS: ANION GAP 22.9 mmol/L (8-16); CALCIUM 7.7 mg/dL (8.5-10.1); CARBON DIOXIDE 18.3 mmol/L (21.0-32.0); CREATININE - SERUM 11.7 mg/dL (0.6-1.3); POTASSIUM - SERUM 5.2 mmol/L (3.5-5.1)
[2018-06-12 06:07] LABS: PHOSPHOROUS 6.9 mg/dL (2.5-4.9)
[2018-06-12 08:12] VITALS: BP 152/88
[2018-06-12 14:12] VITALS: BMI 23.3
[2018-06-12 15:41] VITALS: BP 175/91
[2018-06-12 19:56] VITALS: BP 165/88
[2018-06-13 00:57] VITALS: BP 144/81
[2018-06-13 01:02] LABS: UDS - AMPHET NEGATIVE QUAL (NEGATIVE); UDS - BARB NEGATIVE QUAL (NEGATIVE); UDS - BENZO NEGATIVE QUAL (NEGATIVE); UDS - COCAINE POSITIVE QUAL (NEGATIVE); UDS - OPIATE POSITIVE QUAL (NEGATIVE); UDS - PCP NEGATIVE QUAL (NEGATIVE); UDS - THC NEGATIVE QUAL (NEGATIVE)
[2018-06-13 05:08] LABS: BASOPHILS 0.2 % (0-2); HEMATOCRIT 25.5 % (42.0-54.0); HEMOGLOBIN 8.2 g/dL (13.5-17.5); IMMATURE GRANULOCYTES 0.2 % (0-5); MCH 28.9 pg (26.0-34.0); MCHC 32.2 g/dL (31.0-37.0); MCV 89.8 fL (80.0-100.0); MEAN PLATELET VOLUME 9.7 fL (7.4-10.4); MONOCYTES 9.6 % (2-11); PLATELET COUNT 172 10x3/uL (130-400); RBC 2.84 10x6/uL (4.20-6.10); RDW 15.6 % (11.5-14.5); WBC 4.5 10x3/uL (4.8-10.8)
[2018-06-13 05:27] LABS: CALCIUM 7.2 mg/dL (8.5-10.1)
[2018-06-13 05:29] LABS: ANION GAP 17.1 mmol/L (8-16); CARBON DIOXIDE 24.2 mmol/L (21.0-32.0); CREATININE - SERUM 7.6 mg/dL (0.6-1.3); PHOSPHOROUS 4.1 mg/dL (2.5-4.9); POTASSIUM - SERUM 4.3 mmol/L (3.5-5.1)
[2018-06-13 05:58] VITALS: BP 156/82
[2018-06-13 08:33] VITALS: BP 173/104
[2018-06-13 11:12] VITALS: BP 146/82
[2018-06-13 15:48] VITALS: BP 136/77
[2018-06-13 18:21] VITALS: Ht 177.8 cm; Wt 79.2 kg
[2018-06-13 20:00] VITALS: BP 163/89
[2018-06-14] VITALS: BP 161/92
[2018-06-14 04:00] VITALS: BP 168/95
[2018-06-14 04:51] LABS: BASOPHILS 0 % (0-2); EOSINOPHILS 1.9 % (0-7); HEMATOCRIT 27.4 % (42.0-54.0); IMMATURE GRANULOCYTES 0.2 % (0-5); LYMPHOCYTES 26.7 % (15-50); MCH 29.7 pg (26.0-34.0); MCHC 32.8 g/dL (31.0-37.0); MCV 90.4 fL (80.0-100.0); MEAN PLATELET VOLUME 9.9 fL (7.4-10.4); MONOCYTES 8.5 % (2-11); NEUTROPHILS 62.7 % (40-80); PLATELET COUNT 202 10x3/uL (130-400); RBC 3.03 10x6/uL (4.20-6.10); RDW 15.1 % (11.5-14.5); WBC 4.8 10x3/uL (4.8-10.8)
[2018-06-14 05:26] LABS: CALCIUM 7.2 mg/dL (8.5-10.1); CARBON DIOXIDE 23.8 mmol/L (21.0-32.0); CREATININE - SERUM 8.5 mg/dL (0.6-1.3); PHOSPHOROUS 4.3 mg/dL (2.5-4.9); POTASSIUM - SERUM 4.8 mmol/L (3.5-5.1)
[2018-06-14 08:30] VITALS: BP 153/89
[2018-06-14 16:48] VITALS: BP 123/63
[2018-06-14 20:00] VITALS: BP 160/89
[2018-06-15] VITALS (9 sets, daily range): BP systolic 144–171; BP diastolic 81–101
[2018-06-15 06:04] LABS: BASOPHILS 0 % (0-2); EOSINOPHILS 1.6 % (0-7); HEMATOCRIT 26.4 % (42.0-54.0); HEMOGLOBIN 8.5 g/dL (13.5-17.5); IMMATURE GRANULOCYTES 0.4 % (0-5); LYMPHOCYTES 18.9 % (15-50); MCH 29.1 pg (26.0-34.0); MCHC 32.2 g/dL (31.0-37.0); MCV 90.4 fL (80.0-100.0); MONOCYTES 11.3 % (2-11); NEUTROPHILS 67.8 % (40-80); PLATELET COUNT 190 10x3/uL (130-400); RBC 2.92 10x6/uL (4.20-6.10); RDW 15.3 % (11.5-14.5)
[2018-06-15 06:36] LABS: ANION GAP 14.7 mmol/L (8-16); CALCIUM 7.7 mg/dL (8.5-10.1); CARBON DIOXIDE 26.9 mmol/L (21.0-32.0); PHOSPHOROUS 4.1 mg/dL (2.5-4.9); POTASSIUM - SERUM 4.6 mmol/L (3.5-5.1)
[2018-06-15 06:44] LABS: CREATININE - SERUM 5.8 mg/dL (0.6-1.3)
[2018-06-15 08:35] LABS: APTT 36.7 SECONDS (22.8-39.4); INR 1.15 (0.85-1.17); PROTIME 14.3 SECONDS (11.6-15.0)
[2018-06-16] VITALS: BP 165/95
[2018-06-16 04:00] VITALS: BP 160/92
[2018-06-16 06:24] LABS: ANION GAP 15.6 mmol/L (8-16); CALCIUM 7.8 mg/dL (8.5-10.1); CARBON DIOXIDE 25.4 mmol/L (21.0-32.0); PHOSPHOROUS 4.5 mg/dL (2.5-4.9)
[2018-06-16 06:26] LABS: BASOPHILS 0 % (0-2); EOSINOPHILS 1.7 % (0-7); HEMATOCRIT 27.3 % (42.0-54.0); IMMATURE GRANULOCYTES 0.2 % (0-5); LYMPHOCYTES 16.1 % (15-50); MCH 30.1 pg (26.0-34.0); MCV 91.3 fL (80.0-100.0); MEAN PLATELET VOLUME 9.8 fL (7.4-10.4); MONOCYTES 12.1 % (2-11); NEUTROPHILS 69.9 % (40-80); PLATELET COUNT 193 10x3/uL (130-400); RBC 2.99 10x6/uL (4.20-6.10); RDW 15.2 % (11.5-14.5)
[2018-06-16 06:30] LABS: CREATININE - SERUM 7.3 mg/dL (0.6-1.3)
[2018-06-16 08:05] VITALS: BP 166/93
[2018-06-16] MEDS ORDERED: NEPHRO-VITE RX1 TAB PO (09:50)
[2018-06-16 11:59] VITALS: BP 156/85
== END 2018-06-16 15:30 | disposition home or self-care (01) | DRG 252 ==
LOC: D.ER 11:19 → D.M2 17:38 → D.EDHOLD 17:38 → D.M2 18:44
PROVIDERS: Family Medicine; Internal Medicine Nephrology; Radiology Vascular & Interventional Radiology
PROC: 5A1D70Z Performance of Urinary Filtration, Intermittent, Less than 6 Hours Per Day (ICD-10-PCS; 2018-06-11)
PROC: B51W1ZZ Fluoroscopy of Dialysis Shunt/Fistula using Low Osmolar Contrast (ICD-10-PCS; 2018-06-15)
PROC: 0JH63XZ Insertion of Tunneled Vascular Access Device into Chest Subcutaneous Tissue and Fascia, Percutaneous Approach (ICD-10-PCS; 2018-06-15)
PROC: 02H633Z Insertion of Infusion Device into Right Atrium, Percutaneous Approach (ICD-10-PCS; 2018-06-15)
PROC: B2141ZZ Fluoroscopy of Right Heart using Low Osmolar Contrast (ICD-10-PCS; 2018-06-15)
PROC: 05743DZ Dilation of Left Innominate Vein with Intraluminal Device, Percutaneous Approach (ICD-10-PCS; principal; 2018-06-15 13:30)
DX: T82.838A Hemorrhage due to vascular prosthetic devices, implants and grafts, initial encounter (principal); I50.31 Acute diastolic (congestive) heart failure; N18.6 End stage renal disease; I13.2 Hypertensive heart and chronic kidney disease with heart failure and with stage 5 chronic kidney disease, or end stage renal disease; F17.213 Nicotine dependence, cigarettes, with withdrawal; Y83.8 Other surgical procedures as the cause of abnormal reaction of the patient, or of later complication, without mention of misadventure at the time of the procedure; T82.868A Thrombosis due to vascular prosthetic devices, implants and grafts, initial encounter; E11.22 Type 2 diabetes mellitus with diabetic chronic kidney disease; Z99.2 Dependence on renal dialysis; E78.5 Hyperlipidemia, unspecified; I25.119 Atherosclerotic heart disease of native coronary artery with unspecified angina pectoris; E87.5 Hyperkalemia; Z91.19 Patient's noncompliance with other medical treatment and regimen; D63.1 Anemia in chronic kidney disease; E83.39 Other disorders of phosphorus metabolism; K21.9 Gastro-esophageal reflux disease without esophagitis; B19.20 Unspecified viral hepatitis C without hepatic coma

== ENCOUNTER 2018-06-25 18:10 | Inpatient (IN) | payer MEDICAID ==
[~2018-06-25] VITALS: Ht 177.8 cm; Wt 75.5 kg
[2018-06-25] VITALS (10 sets, daily range): BP systolic 159–193; BP diastolic 104–113
--- NOTE | ~2018-06-25 | CN ---
PATIENT NAME:ODETTE OH MEDICAL RECORD: [id number] : [birth year] LOCATION:[facility].2112 ADMIT DATE: 06/25/18 ACCOUNT: [id number] CONSULTING PHYSICIAN: THERESA HERRON MD REFERRING PHYSICIAN: SHARI JONES MD DATE OF CONSULTATION: 06/26/2018 HISTORY OF PRESENT ILLNESS: A 57-year-old gentleman with a history of hypertension, end-stage renal disease, questionable compliance in the past, admitted with chest pain. He has a history of cocaine use as well, has history of intervention in the past by his report during cocaine use. We are asked to see him concerning his cardiovascular status. PAST MEDICAL HISTORY: Includes: 1. History of hypertension. 2. Anemia of chronic disease. 3. End-stage renal disease. ALLERGIES: MINOXIDIL. MEDICATIONS: Include Eliquis 2.5 b.i.d., atorvastatin 10 every day, amlodipine 10 every day, Imdur 60 every day, lisinopril 20 b.i.d., clonidine 0.2 b.i.d., Cardura 1 b.i.d. SOCIAL HISTORY: Does smoke, occasional illicit drug use. REVIEW OF SYSTEMS: The patient reports easy bruising but reports no swollen glands. The patient reports no fever, no night sweats, no significant weight gain, no significant weight loss. No significant exercise tolerance. The patient reports no dry eyes, no irritation, no vision change. Patient reports no difficulty hearing and no ear pain. Patient reports no frequent nose bleeds or nose and sinus problems. Patient reports on arm pain on exertion. No shortness of breath while lying down. No history of heart murmur. Patient reports no cough, no wheezing or coughing up blood. Patient reports no abdominal pain, no vomiting. Normal appetite. No diarrhea and not vomiting blood. No nausea and no constipation. Patient reports no incontinence. No difficulty urinating. No hematuria. No increased frequency. Patient reports no muscle aches. No weakness, no arthralgias, no back pain. No swelling of the extremities. Patient reports no abnormal mole, no jaundice, no rashes. Reports no loss of consciousness. No weakness and no numbness. No seizures, dizziness, or headaches. The patient reports no depression, no sleep disturbance, feeling safe in a relationship and no alcohol abuse. Patient reports on fatigue. Reports no runny nose or sinus pressure. No itching, no hives, and no frequent sneezing. PHYSICAL EXAMINATION: GENERAL: Middle-aged gentleman in no acute distress. VITAL SIGNS: Blood pressure 181/114, pulse 71 and regular. HEENT: Normocephalic, atraumatic. NECK: No JVD or bruit. HEART: Regular, S4 gallop is noted, II/ systolic ejection murmur. LUNGS: Fairly good air excursion. ABDOMEN: Soft, nontender. EXTREMITIES: Pulses 2+ with no edema. CONSULT REPORT [id number] ODETTE OH DIAGNOSTIC DATA: ECG shows LVH secondary to ST-T changes. IMPRESSION: Chest pain, hypertension in the face of intermittent amphetamine use and a known history of coronary artery disease. PLAN: Diagnostic angiography, intervention based on above. TRANSINT:[id number] Voice Confirmation ID: [id number] DOCUMENT ID: [id number] THERESA HERRON MD at 1150 CC: [id number] DICTATION DATE: 06/26/18832 CANE PACKER: 06/26/18 0939 ADM IN [facility] [address] [place] [address]
--- NOTE | ~2018-06-25 | OP ---
PATIENT NAME: ODETTE OH MEDICAL RECORD: [id number] :64 LOCATION:D. D.2111 ADMISSION DATE:06/25/18 SURGEON: THERESA HERRON MD DATE OF OPERATION: 06/26/2018 PROCEDURE: Left heart catheterization, selective coronary angiography, right femoral artery approach. CATHETERS: A 5-Greenlandic sheath, 5/4 left and right Jesenia, 5/4 pig. The procedure was well tolerated. The patient was returned to [facility]. Sheath removed. ExoSeal device placed. FINDINGS: Left ventriculography in 30-degree SHAW view shows global LV hypokinesis. Overall, LV function mildly reduced at 40%. CORONARY ANATOMY: LEFT MAIN: Left main is free of disease. LAD: Free of disease in the diagonal system. CIRCUMFLEX: Free of disease in the marginal system. RIGHT CORONARY ARTERY: Nondominant, free of disease. IMPRESSION: Nonischemic cardiomyopathy, suspect hypertensive versus and/or combination of toxin induced. TRANSINT:[id number] Voice Confirmation ID: [id number] DOCUMENT ID: [id number] THERESA HERRON MD at 1150 CC: [id number] DICTATION DATE: 06/26/18 0942 WAIST PRESSER: 06/26/18 1010 ADM IN [place] [id number] [place] [id number]
--- NOTE | ~2018-06-25 | MORECARE ---
CASE MANAGEMENT DISCHARGE SUMMARY PATIENT: ODETTE HO UNIT: [id number] ADM DATE: 06/27/18 AGE: 57 : 64 SEX: M ROOM/BED: D.2112 AUTHOR: MARUDOC PHYSICIAN: REFERRING PHYSICIAN: SHARI JONES MD DATE OF SERVICE: 06/29/18 Discharge Plan Patient Name: ODETTE OH Facility: [facility]:[place] : 1960 Planned Disposition: Home Anticipated Discharge Date: 06/29/18 Discharge Date: 06/29/2018 Expected LOS: 2 Initial Reviewer: [email or web address] Initial Review Date: 06/28/2018 Generated: 06/29/18 1:47 pm Comments DCP- Discharge Planning Updated by [email or web address]: Jeff Christopher on 06/29/18 11:[address] Patient Name: ODETTE OH Encounter No: [id number] : 1960 Primary Insurance: MEDICAID [place] Anticipated DC Date: 06-29-2018 Planned Disposition: Home DCP follow-up note: CM RECEIVED DISCHARGE ORDER, CM MET WITH PT IN ROOM TO DISCUSS DISCHARGE NEEDS AND PLANNING. CM DISCUSSED AVAILABILITY OF HOME HEALTH, REHAB SERVICES AND MEDICAL EQUIPMENT. PT DENIES DISCHARGE NEEDS WANTS CM TO CALL HIS DAUGHTER FOR RIDE HOME AND IF SHE DOES NOT ANSWER, ASKED CM TO CALL MEDICAID TRANSPORTATION. CM CALLED [facility] [phone], [facility] WAS NOT ACCEPTING CALLS UP UNTIL 1000AM. CM CALLED [facility], , ARRANGED PT TRANSPORT HOME FROM HOSPITAL TO HOME OF [facility] [phone], [address] [place] [id number]. CONFIRMATION # [id number], VAN TO CALL NURSES STATION WHEN DOWNSTAIRS TO OPERATIONS SUPERINTENDENT PT. PT AND SURFACE WATER MANAGER NURSE NOTIFIED. BEDSIDE NURSE NOTIFIED. SUSI Farmer DCP- Discharge Planning Updated by [email or web address]: Jeff Christopher on 06/28/18 4:[address] Patient Name: ODETTE OH Admission Status: ER Accout number: [id number] Admission Date: 06-27-2018 : 1960 Admission Diagnosis: Attending: SHARI JONES Current LOS: 1 Anticipated DC Date: 06-28-2018 Planned Disposition: Home Primary Insurance: MED[place]ID [place] Discharge Planning Comments: CM RECEIVED DISCHARGE PLANNING ORDER, CM MET WITH PT IN ROOM TO DISCUSS DISCHARGE NEEDS AND PLANNING. CM DISCUSSED AVAILABILITY OF HOME HEALTH, REHAB SERVICES AND MEDICAL EQUIPMENT. PT DENIES DISCHARGE NEEDS. STATES HIS DAUGHTER IS HELPING HIM AND WILL PICK HIM UP FOR TRANSPORT HOME AT DISCHARGE. PT REPORTS HE WILL DISCHARGE TO HIS DAUGHTERS' HOME, [facility], , [address] [place] [address]. [id number]. CM ENCOURAGED PT TO ACCEPT HOME HEALTH, PT DECLINED. FOR TRANSPORT HOME AT DISCHARGE, CALL PT'S DAUGHTER, [facility], . Jeff Christopher, CASE MANAGEMENT DCPIA - Discharge Planning Initial Assessment Updated by [email or web address]: Jeff Christopher on 06/28/18 5:31 pm * Is the patient Alert and Oriented? Yes * How many steps to enter\exit or inside your home? * PCP DR. VÁZQUEZ IN [place] * Pharmacy [facility] IN [place] * Preadmission Environment Home with Family * ADLs Independent * Equipment Cane * Other Equipment NO MEDICAL EQUIPMENT PROVIDER PREFERENCE * List name and contact numbers for known caregivers / representatives who currently or will assist patient after discharge: [facility] DTR, JOCELYN GILMORE, JENNIFER LIANG, SISTER IN [place], * Verbal permission to speak to the caregivers and representatives has been obtained from the patient. Yes * Community resources currently utilized Other * Please name any agencies selected above. OUTPATIENT DIALYSIS, MWF, [facility], MEDICAID TRANSPORTATION * Additional services required to return to the preadmission environment? No * Can the patient safely return to the preadmission environment? Yes * Has this patient been hospitalized within the prior 30 days at any hospital? Yes Last DP export: 06/29/18 7:30 Patient Name: ODETTE OH Page 24936 at 1247 All edits/amendments must be made on the electronic document DICTATION DATE: 06/29/18 1246 MACHINE BUNCH MAKER: [facility] 06/29/18 1246 RPT#: [id number] DC DATE:06/29/18 STATUS: DIS IN [facility] [address] [place] [address] END OF REPORT
--- NOTE | ~2018-06-25 | HEMODYNAMI ---
PATIENT:ODETTE OH MEDICAL RECORD: [id number] : 64 LOCATION:[facility] D.2112 ADMISSION DATE: 06/25/18 Generatedon:06/26/20189:45 Patient name: ODETTE OH Patient #: [id number] SSN: : Date of study: 06/26/2018 Page: Of Hemodynamic Procedure Report Patient Data Patient Demographics Procedure consent was obtained First Name: ODETTE Gender: Male Last Name: ADRIANO : 1960 Middle Initial: L Age: 57 year(s) Patient #: [id number] Race: Black Additional ID: [id number] Contact details [address]: [address] [place] [address] State: [place] City: [place] Zip code: [address] Past Medical History Allergies Allergen Reaction Date Comments Reported Other allergy 12/23/2017 Minoxidil Other allergy 01/20/2018 minoxidil Other allergy 06/26/2018 MINOXIDIL Admission Admission Data Admission Date: 06/25/2018 Admission Time: 21:28 Room #: D.2112 Lab Results Lab Result Date: 06/26/2018 Lab Result Time: 0:00 Biochemistry Name Units Result Min Max BUN mg/dl 74 --(----)-* 7 18 Creatinine mg/dl 9.7 --(----)-* 0.6 1.3 CBC Name Units Result Min Max Hemoglobin g/dl 8.8 *-(----)-- 13.5 17.5 Procedure Procedure Types Cath Procedure Diagnostic Procedure LHC LHC w/Coronaries Procedure Description Procedure Date Procedure Date: 06/26/2018 Procedure Start Time: 9:32 Procedure End Time: 9:40 Procedure Staff Name Function Zaire Grajeda MD Performing Physician Azra Carson RT Monitor Sandra Gandhi RT Scrub Shawn Manning RN Nurse Procedure Data Cath Procedure Fluoroscopy Diagnostic fluoroscopy Total fluoroscopy Time: 1.1 time: 1.1 min min Diagnostic fluoroscopy Total fluoroscopy dose: 502 dose: 502 mGy mGy Contrast Material Contrast Material Type Amount (ml) Isovue 300 58 Entry Location Entry Primary Successful Side Size Upsize Upsize Entry Closure Succes sful Closure Location (Fr) 1 (Fr) 2 (Fr) Remarks Device Remarks Femoral Right 5 Fr Exoseal artery Estimated blood loss: 5 ml Procedure Complications No complications Procedure Medications Medication Administration Route Dosage Oxygen NC 2 l/min Heparin Flush Bag added to field 2 bags (1000units/500ml NS) 0.9% NaCl I.V. 100 ml/hr Fentanyl I.V. 50 mcg Versed I.V. 1 mg Fentanyl I.V. 50 mcg Versed I.V. 1 mg Hemodynamics Rest HGB: 8.8 (g/dl) Heart Rate: 77 (bpm) Pressure Samples Time Site Value (mmHg) Purpose Heart Use Rate(bpm) 9:37 LV 175/15,21 Snapshot 74 9:37 AO 168/91(120) Pullback 74 9:37 LV 163/20,14 Pullback 74 Gradients Valve Time Site 1 Site 2 Mean SEP/DFP Peak To Heart Use (mmHg) (sec/min) Peak Rate (mmHg) (bpm) Aortic 9:37 LV AO 0 9 0 74 163/20,14 168/91(120) Calculations Valve P-P Mean Valve Index Valve Source Name Gradient Area Flow (cm2) Aortic 0 0 0 0 Snapshots Pre Cath Intra NCS Post Cath Vital Signs Time Heart Resp SPO2 etCO2 NIBP (mmHg) Rhythm Pain Sedation Rate (ipm) (%) (mmHg) Status Level (bpm) 9:24:39 87 17 92 0 187/118(152) NSR 0 (11) 10(A) , No pain 9:29:01 89 17 96 0 189/125(151) NSR 0 (11) 10(A) , No pain 9:33:25 89 17 96 0 181/106(142) NSR 0 (11) 9(A) , No pain 9:37:47 74 17 96 0 180/100(141) NSR 0 (11) 9(A) , No pain 9:43:09 86 17 98 0 177/109(155) NSR 0 (11) 9(A) , No pain Medications Time Medication Route Dose Verified Delivered Reason Notes Effect iveness by by 9:25:38 Oxygen NC 2 Zaire Escobar Per l/min St Erasto Manning RN physician 9:25:46 Heparin Flush added 2 Zairepolina Baezy used for Bag to bags St Erasto Manning RN procedure (1000units/500ml field NS) 9:25:56 0.9% NaCl I.V. 100 Zaire Shawn Per ml/hr St Erasto Manning RN physician 9:32:24 Fentanyl I.V. 50 Zaire Shawn for [facility]ast[facility] RN sedation 9:32:30 Versed I.V. 1 mg Zaire Baezy for [facility] Erasto Manning RN sedation 9:37:18 Fentanyl I.V. 50 Zaire Shawn for [facility] Erasto Manning RN sedation 9:37:21 Versed I.V. 1 mg Zaire Baezy for [facility] Erasto Manning RN sedation Procedure Log Time Note 8:36:44 Sandra Gandhi RT(R) sent for patient. Start room use. 8:36:45 Time tracking: Regular hours (M-F 7:00 - 5:00) 8:54:43 Plan of Care:Hemodynamics will remain stable., Cardiac rhythm will remain stable., Comfort level will be maintained., Respiratory function will remain adequate., Patient/ family verbilizes understanding of procedure., Procedure tolerated without complication., Recovers from procedure without complications.. 9:03:16 Patient received from PCU to CCL 2 Alert and oriented. Tansferred to table in Supine position. 9:03:17 Warm blankets applied, and joe hugger turned on for patient comfort. 9:03:18 Correct patient and procedure confirmed by team. 9:03:19 Signed procedure consent form obtained from patient. 9:03:19 ECG and BP/O2 sat monitors applied to patient. 9:05:36 Lab Result : Creatinine 9.7 mg/dl 9:05:36 Lab Result : BUN 74 mg/dl 9:05:36 Lab Result : Hemoglobin 8.8 g/dl 9:08:12 IV started by Shawn Manning RN inright forearm with a 22 gauge IV catheter with 0.9% NaCl at KVO. 9:17:11 H&P Date Dictated: 06/25/2018 Within 30 days and on chart.. 9:17:12 Pre-procedure instructions explained to patient. 9:17:13 Pre-op teaching completed and patient verbalized understanding. 9:17:17 Family unavailable. 9:17:18 Patient NPO since Midnight. 9:17:39 Patient allergic to Other allergyMINOXIDIL 9:17:41 Is the patient allergic to Iodine/contrast media? No. 9:17:49 Patient diabetic? No. 9:17:53 Previous problem with sedation/anesthesia? No ? 9:17:54 Snore? Yes 9:17:55 Sleep apnea? No 9:17:56 Deviated septum? No 9:17:57 Opens mouth fully? Yes 9:17:58 Sticks out tongue? Yes 9:18:07 Airway obstruction? No ? 9:18:09 Dentures? No ? 9:18:14 Pre procedure: right dorsailis pedis pulse 1+ Palpable, but thready & weak; easily obliterated 9:18:17 Patient pain scale 0/10 ?. 9:18:46 Lab results completed and on chart. 9:18:49 Right groin area was prepped with chlora-prep and draped in sterile fashion 9:18:50 Alarms reviewed by R. N. 9:18:51 Sharps counted by scrub and verified by R.N. 9:19:06 STOPCOCK 3-Way Large Bore ([id number]) opened to sterile field. 9:19:14 Use device set Femoral Dx 9:19:15 ACIST Syringe (36640) opened to sterile field. 9:19:16 Bag Decanter (2002S) opened to sterile field. 9:19:18 ACIST Hand Control (76565) opened to sterile field. 9:19:19 ACIST Manifold (39008) opened to sterile field. 9:19:22 Tegaderm 4 x 4 (1626W) opened to sterile field. 9:19:23 Medline Cath Pack ([id number]) opened to sterile field. 9:19:24 DIAGNOSTIC WIRE .035 260cm J wire (337254) opened to sterile field. 9:19:25 DIAGNOSTIC Multipack 5Fr catheter set (FT8213) opened to sterile field. 9:19:31 SHEATH 5FR Imboden (DHI345) opened to sterile field. 9:22:28 Vital chart was started 9:22:33 Baseline sample Acquired. 9:25:38 Oxygen 2 l/min NC was administered by Shawn Manning RN; Per physician; 9:25:46 Heparin Flush Bag (1000units/500ml NS) 2 bags added to field was administered by Shawn Manning RN; used for procedure; 9:25:56 0.9% NaCl 100 ml/hr I.V. was administered by Shawn Manning RN; Per physician; 9:32:01 Physician arrived 9:32: --------ALL STOP TIME OUT------ 9:32:02 Final Timeout: patient, procedure, and site verified with staff and physician. All members of the team are in agreement. 9:32:04 Right groin site verified by team. 9:32:06 Physical assessment completed. ASA score P 3 - A patient with severe systemic disease as per Zaire Grajeda MD. 9:32:10 Sedation plan: IV Moderate Sedation Medication:Versed, Fentanyl 9::18 Procedure started. 9:32: Full Disclosure recording started 9:: Local anesthetic to right femoral artery with Lidocaine 2% by Zaire Grajeda MD.INITIAL ACCESS ONLY 9:32:24 Fentanyl 50 mcg I.V. was administered by Shawn Manning RN; for sedation; 9:32:30 Versed 1 mg I.V. was administered by Shawn Manning RN; for sedation; 9:32:35 A 5 Fr sheath was inserted into the Right Femoral artery 9:33:03 5 Fr JL 4 guide catheter was inserted over the wire 9:33:10 Zero performed for pressure channel P1 9:34:04 LCA angiography performed. 9:34:07 Injector settings: Ml/sec: 3, Volume: 6, 9:35:05 Catheter removed. 9:35:12 5 Fr 3DRC guide catheter was inserted over the wire 9:35:59 RCA angiography performed. 9:36:02 Injector settings: Ml/sec: 3, Volume: 6, 9:36:12 Catheter removed. 9:36:20 5 Fr PIGTAIL guide catheter was inserted over the wire 9:37:18 Fentanyl 50 mcg I.V. was administered by Shawn Manning RN; for sedation; :37:21 Versed 1 mg I.V. was administered by Shawn Manning RN; for sedation; 9:37:21 LV hemodynamics recorded. 9:37:22 LV gram done using SHAW 9:37:28 Injector settings: Ml/sec: 5, Volume: 15, 9:37:43 EF : 40 % 9:37:47 Catheter removed. 9:37:54 EXOSEAL 5Fr (EX500) opened to sterile field. 9:38:21 Sheath removed intact; hemostasis achieved with Exoseal to the Right Femoral artery. 9:38:37 Procedure ended.(Physican Out) 9:38:51 Fluoroscopy time 01.10 minutes. 9:38:56 Fluoroscopy dose: 502 mGy 9:38:56 Flurop Dose total: 502 9:39:40 Contrast amount:Isovue 300 58ml. 9:39:49 Insertion/operative site no bleeding no hematoma. 9:39:52 Post-op/insertion site Right Femoral artery dressed using a 4 x 4 and Tegaderm. 9:39:55 Post right femoral artery:stable 9:39:56 Post Procedure Pulses reassessed and unchanged 9:39:58 Post procedure rhythm: unchanged. 9:40:01 Estimated blood loss: 5 ml 9:40:02 Post procedure instruction explained to patient.Patient verbalizes understanding. 9:40:02 Patient needs reinforcement of post procedure teaching. 9:40:11 Procedure and supply charges have been captured, reviewed, submitted and are correct. 9:40:15 Procedure Complication : No complications 9:40:18 Vital chart was stopped 9:40:19 See physician's report for complete and final results. 9:40:32 Report given to Med II. 9:40:35 Patient transfered to Med II with Stretcher. 9:40:37 Procedure ended. 9:40:37 Full Disclosure recording stopped 9:40:42 End room use (Document Last) Device Usage Item Name Manufacture Quantity Catalog Hospital Part Current Minimal L ot# / Number Charge Number Stock Stock Serial# Code [facility]ly [facility] 1 [id number] 6733 [id number] 5 3-Way Large Bore ([id number]) ACIST Acist 1 44684 339409 921468 090681 20 Syringe Medical (68368) Systems Inc Bag Microtek 1 718400 94439 321922 5 Decanter Medical Inc. () ACIST Hand Acist 1 59712 450407 690978 798871 5 Control Medical (98349) Systems Inc ACIST Acist 1 83180 496238 656870 978122 5 Manifold Medical (62757) Systems Inc Tegaderm 4 3M 1 1626W 953079 518294 102723 5 x 4 (1626W) Medline Medline 1 [id number] 071262 76182 821939 5 Cath Pack ([id number]) DIAGNOSTIC St Jose 1 992499 398217 609652 452670 30 WIRE .035 260cm J wire (058780) DIAGNOSTIC Cardinal 1 DE1803 358216 45214 541339 30 [facility] Holganix 5Fr catheter set (VW6341) SHEATH 5FR Terumo 1 BBT279 388516 718724 932500 40 Imboden (GBR243) EXOSEAL 5Fr Cardinal 1 EX500 925380 514236 771066 10 (EX500) Health Signature Audit Rice Stage Time Signature Unsigned Intra-Procedure 06/26/2018 Azra Carson 9:45:00 AM RT(R) Signatures Monitor : Azra Carson RT Signature : Date : Time : [address] [place] [address]
--- NOTE | ~2018-06-25 | MORECARE ---
CASE MANAGEMENT DISCHARGE SUMMARY PATIENT: ODETTE OH UNIT: [id number] ADM DATE: 06/27/18 AGE: 57 : 64 SEX: M ROOM/BED: D.2112 AUTHOR: MARU,DOC PHYSICIAN: REFERRING PHYSICIAN: SHARI JONES MD DATE OF SERVICE: 06/29/18 Discharge Plan Patient Name: ODETTE OH Facility: [facility]:[place] : 1960 Planned Disposition: Home Anticipated Discharge Date: 06/28/18 Discharge Date: Expected LOS: 1 Initial Reviewer: [email or web address] Initial Review Date: 06/28/2018 Generated: 06/29/18 9:30 am Comments DCP- Discharge Planning Updated by [email or web address]: Jeff Christopher on 06/28/18 4:[address] Patient Name: ODETTE OH Admission Status: ER Accout number: [id number] Admission Date: 06-27-2018 : 1960 Admission Diagnosis: Attending: SHARI JONES Current LOS: 1 Anticipated DC Date: 06-28-2018 Planned Disposition: Home Primary Insurance: MEDICAID [place] Discharge Planning Comments: CM RECEIVED DISCHARGE PLANNING ORDER, CM MET WITH PT IN ROOM TO DISCUSS DISCHARGE NEEDS AND PLANNING. CM DISCUSSED AVAILABILITY OF HOME HEALTH, REHAB SERVICES AND MEDICAL EQUIPMENT. PT DENIES DISCHARGE NEEDS. STATES HIS DAUGHTER IS HELPING HIM AND WILL PICK HIM UP FOR TRANSPORT HOME AT DISCHARGE. PT REPORTS HE WILL DISCHARGE TO HIS DAUGHTERS' HOME, [facility], , [address] [place] [id number]. CM ENCOURAGED PT TO ACCEPT HOME HEALTH, PT DECLINED. FOR TRANSPORT HOME AT DISCHARGE, CALL PT'S DAUGHTER, [facility], . Jeff Christopher, CASE MANAGEMENT DCPIA - Discharge Planning Initial Assessment Updated by [email or web address]: Jeff Christopher on 06/28/18 5:31 pm * Is the patient Alert and Oriented? Yes * How many steps to enter\exit or inside your home? * PCP DR[facility] V[facility]ZQUEZ IN [place] * [facility]acy [facility] [place] * Preadmission Environment Home with Family * ADLs Independent * Equipment Cane * Other Equipment NO MEDICAL EQUIPMENT PROVIDER PREFERENCE * List name and contact numbers for known caregivers / representatives who currently or will assist patient after discharge: [facility] DTR, PAUL JOCELYN LIANG, JENNIFER LIANG, SISTER IN LAW, * Verbal permission to speak to the caregivers and representatives has been obtained from the patient. Yes * Community resources currently utilized Other * Please name any agencies selected above. OUTPATIENT DIALYSIS, MWF, [place], MEDICAID TRANSPORTATION * Additional services required to return to the preadmission environment? No * Can the patient safely return to the preadmission environment? Yes * Has this patient been hospitalized within the prior 30 days at any hospital? Yes Last DP export: 06/28/18 4:38 Patient Name: ODETTE OH Page 14943 at 0830 All edits/amendments must be made on the electronic document DICTATION DATE: 06/29/18829 CONSTRUCTION CONSULTANT: LUH 06/29/18829 RPT#: [id number] DC DATE: STATUS: ADM IN [facility] [address] [place] [address] END OF REPORT
--- NOTE | ~2018-06-25 | MORECARE ---
CASE MANAGEMENT DISCHARGE SUMMARY PATIENT: ODETTE OH UNIT: [id number] ADM DATE: 06/27/18 AGE: 57 : 64 SEX: M ROOM/BED: D.2112 AUTHOR: ETHAN MAHONEY PHYSICIAN: REFERRING PHYSICIAN: SHARI JONES MD DATE OF SERVICE: 06/28/18 Discharge Plan Patient Name: ODETTE OH [facility] [facility] 1960 Planned Disposition: Home Anticipated Discharge Date: 06/28/18 Discharge Date: Expected LOS: 1 Initial Reviewer: [email or web address] Initial Review Date: 06/28/2018 Generated: 06/28/18 6:29 pm Patient Name: ODETTE OH Page 14063 at 4764 All edits/amendments must be made on the electronic document DICTATION DATE: 06/28/181728 GRAPHICS SOFTWARE ENGINEER: LUH 06/28/181728 RPT#: [id number] DC DATE: STATUS: ADM IN [facility] [address] [place] [address] END OF REPORT
--- NOTE | ~2018-06-25 | DS ---
PATIENT:ODETTE OH :[birth year] MEDICAL RECORD: [id number] DISCHARGE SUMMARY ADMISSION DATE: 06/27/18 DISCHARGE DATE: 06/29/18 HISTORY OF PRESENT ILLNESS: Mr. Oh is a 57-year-old black male with end-stage renal disease and chronic dialysis, very poor medicine and treatment compliance with long periods off dialysis, known substance abuse with positive drug screens for opiates and cocaine on a repeated basis who was at [facility] recently with myoclonic jerking of unclear origin. Neurological workup at that time was negative for CT, MRI, and EEG. The patient is admitted at this time with recurrent chest pain and has a known history of organic heart disease as well as a regular cocaine abuse. HOSPITAL COURSE: The patient was seen by cardiology, where he was taken to chemical laboratory technician and his cardiac catheterization was essentially unrevealing and stable. He had a VQ scan that was negative for low probability of pulmonary embolus. Chest x-ray had some minor findings, but no major issues noted and no change from his previous chest pain. Chest pain was felt possibly due to old rib fractures that were also present. He had no other major intercurrent problems, underwent acute dialysis without difficulty. His recently stented subclavian vein was patent with improving edema of his left arm. He is off all anticoagulants at this the time. At the time of discharge, he was back to baseline. DISCHARGE DIAGNOSES: 1. Chest pain, noncardiac in origin. Workup is essentially negative. 2. Chronic drug abuse with positive drug screens. 3. End-stage renal disease, chronic dialysis. 4. Hypertension. 5. Poor medication and dialysis compliance. 6. Accelerated hypertension. 7. Chronic anemia. PLAN: The patient will be discharged today. He will be in [facility] tomorrow. We will see him on a weekly basis there. He is to continue his renal diet, ambulation as tolerated. I have advised him against his current drug usage. DISCHARGE MEDICATIONS: Amlodipine 5 mg b.i.d., hydralazine 100 mg b.i.d., Cardura 2 mg b.i.d., clonidine 0.2 b.i.d., aspirin 325 daily, Protonix 40 daily, Renagel 2400 t.i.d., isosorbide 60 daily, Lipitor 10 mg at bedtime, metoprolol 50 b.i.d., tramadol p.r.n., lisinopril 20 b.i.d. TRANSINT:[id number] Voice Confirmation ID: [id number] DOCUMENT ID: [id number] CC: JAYDE Denis MD at 0741 CC: [id number] DICTATION DATE: 06/29/1835 DIRECTOR GEOPHYSICAL LABORATORY: 06/29/18 0818 DIS IN 06/29/18 [facility] [address] [place] [address]
--- NOTE | ~2018-06-25 | MORECARE ---
CASE MANAGEMENT DISCHARGE SUMMARY PATIENT: ODETTE OH UNIT: [id number] ADM DATE: 06/27/18 AGE: 57 : 64 SEX: M ROOM/BED: D.2112 AUTHOR: MARU,DOC PHYSICIAN: REFERRING PHYSICIAN: SHARI JONES MD DATE OF SERVICE: 06/28/18 Discharge Plan Patient Name: ODETTE OH Facility: [facility]:[place] : 1960 Planned Disposition: Home Anticipated Discharge Date: 06/28/18 Discharge Date: Expected LOS: 1 Initial Reviewer: [email or web address] Initial Review Date: 06/28/2018 Generated: 06/28/18 6:38 pm Comments DCP- Discharge Planning Updated by [email or web address]: Jeff Christopher on 06/28/18 4:[address] Patient Name: ODETTE OH Admission Status: ER Accout number: [id number] Admission Date: 06-27-2018 : 1960 Admission Diagnosis: Attending: SHARI JONES Current LOS: 1 Anticipated DC Date: 06-28-2018 Planned Disposition: Home Primary Insurance: MEDICAID [place] Discharge Planning Comments: CM RECEIVED DISCHARGE PLANNING ORDER, CM MET WITH PT IN ROOM TO DISCUSS DISCHARGE NEEDS AND PLANNING. CM DISCUSSED AVAILABILITY OF HOME HEALTH, REHAB SERVICES AND MEDICAL EQUIPMENT. PT DENIES DISCHARGE NEEDS. STATES HIS DAUGHTER IS HELPING HIM AND WILL PICK HIM UP FOR TRANSPORT HOME AT DISCHARGE. PT REPORTS HE WILL DISCHARGE TO HIS DAUGHTERS' HOME, [facility], , [address] [place] [id number]. CM ENCOURAGED PT TO ACCEPT HOME HEALTH, PT DECLINED. FOR TRANSPORT HOME AT DISCHARGE, CALL PT'S DAUGHTER, [facility], . Jeff Christopher, CASE MANAGEMENT DCPIA - Discharge Planning Initial Assessment Updated by [email or web address]: Jeff Christopher on 06/28/18 5:31 pm * Is the patient Alert and Oriented? Yes * How many steps to enter\exit or inside your home? * PCP DR[facility]ZQUEZ IN [place] * Pharmacy [facility] [place] * Preadmission Environment Home with Family * ADLs Independent * Equipment Cane * Other Equipment NO MEDICAL EQUIPMENT PROVIDER PREFERENCE * List name and contact numbers for known caregivers / representatives who currently or will assist patient after discharge: [facility] DTR, PAUL JOCELYN LIANG, JENNIFER LIANG, SISTER IN LAW, * Verbal permission to speak to the caregivers and representatives has been obtained from the patient. Yes * Community resources currently utilized Other * Please name any agencies selected above. OUTPATIENT DIALYSIS, MWF, [facility], MEDICAID TRANSPORTATION * Additional services required to return to the preadmission environment? No * Can the patient safely return to the preadmission environment? Yes * Has this patient been hospitalized within the prior 30 days at any hospital? Yes Last DP export: 06/28/18 4:29 Patient Name: ODETTE OH Page 74802 at 1738 All edits/amendments must be made on the electronic document DICTATION DATE: 06/28/181737 ORACLE REPORTS DEVELOPER: LUH 06/28/181737 RPT#: [id number] [place] DATE: STATUS: ADM IN [facility] [address] [place] [address] END OF REPORT
[2018-06-25 18:22] LABS: BASOPHILS 0.1 % (0-2); EOSINOPHILS 1.4 % (0-7); HEMATOCRIT 27.4 % (42.0-54.0); HEMOGLOBIN 8.7 g/dL (13.5-17.5); IMMATURE GRANULOCYTES 0.6 % (0-5); LYMPHOCYTES 12.8 % (15-50); MCH 28.8 pg (26.0-34.0); MCHC 31.8 g/dL (31.0-37.0); MCV 90.7 fL (80.0-100.0); MEAN PLATELET VOLUME 9.5 fL (7.4-10.4); MONOCYTES 9.9 % (2-11); NEUTROPHILS 75.2 % (40-80); PLATELET COUNT 174 10x3/uL (130-400); RBC 3.02 10x6/uL (4.20-6.10); RDW 16.4 % (11.5-14.5); WBC 10.5 10x3/uL (4.8-10.8)
[2018-06-25 18:38] LABS: ALBUMIN 2.6 g/dL (3.4-5.0); ANION GAP 18.6 mmol/L (8-16); BILIRUBIN - TOTAL 0.46 mg/dL (0.2-1.3); CALCIUM 7.6 mg/dL (8.5-10.1); CARBON DIOXIDE 24.4 mmol/L (21.0-32.0); CREATININE - SERUM 9.8 mg/dL (0.6-1.3); PROTEIN - SERUM 7.6 g/dL (6.4-8.2)
[2018-06-25 18:49] LABS: CKMB 1.6 U/L (0.0-3.6); TROPONIN-I 0.054 ng/mL (0.000-0.060)
[2018-06-26] VITALS (7 sets, daily range): BP systolic 173–195; BP diastolic 98–114; Ht 177.8 cm; Wt 75.5 kg
[2018-06-26 05:33] LABS: BASOPHILS 0.1 % (0-2); EOSINOPHILS 1.7 % (0-7); HEMATOCRIT 27.7 % (42.0-54.0); HEMOGLOBIN 8.8 g/dL (13.5-17.5); IMMATURE GRANULOCYTES 0.4 % (0-5); LYMPHOCYTES 15.9 % (15-50); MCHC 31.8 g/dL (31.0-37.0); MCV 91.4 fL (80.0-100.0); MEAN PLATELET VOLUME 9.5 fL (7.4-10.4); MONOCYTES 9.1 % (2-11); NEUTROPHILS 72.8 % (40-80); PLATELET COUNT 168 10x3/uL (130-400); RBC 3.03 10x6/uL (4.20-6.10); RDW 16.9 % (11.5-14.5); WBC 9.7 10x3/uL (4.8-10.8)
[2018-06-26 06:05] LABS: CALCIUM 7.9 mg/dL (8.5-10.1); CARBON DIOXIDE 20.6 mmol/L (21.0-32.0); CREATININE - SERUM 9.7 mg/dL (0.6-1.3)
[2018-06-26 06:06] LABS: ANION GAP 21.4 mmol/L (8-16); TROPONIN-I 0.071 ng/mL (0.000-0.060)
[2018-06-27] VITALS (7 sets, daily range): BP systolic 138–188; BP diastolic 68–94
[2018-06-27 05:12] LABS: BASOPHILS 0 % (0-2); EOSINOPHILS 1.9 % (0-7); HEMATOCRIT 26.6 % (42.0-54.0); HEMOGLOBIN 8.3 g/dL (13.5-17.5); IMMATURE GRANULOCYTES 0.4 % (0-5); LYMPHOCYTES 20.2 % (15-50); MCH 28.7 pg (26.0-34.0); MCHC 31.2 g/dL (31.0-37.0); MEAN PLATELET VOLUME 9.9 fL (7.4-10.4); MONOCYTES 11.3 % (2-11); NEUTROPHILS 66.2 % (40-80); PLATELET COUNT 153 10x3/uL (130-400); RBC 2.89 10x6/uL (4.20-6.10); RDW 16.6 % (11.5-14.5)
[2018-06-27 05:21] LABS: ANION GAP 16.2 mmol/L (8-16); CALCIUM 7.3 mg/dL (8.5-10.1); CARBON DIOXIDE 25.7 mmol/L (21.0-32.0); CREATININE - SERUM 7.3 mg/dL (0.6-1.3); POTASSIUM - SERUM 4.9 mmol/L (3.5-5.1)
[2018-06-28] VITALS: BP 150/82
[2018-06-28 04:00] VITALS: BP 152/76
[2018-06-28 08:35] VITALS: BP 174/84
[2018-06-28 15:44] VITALS: BP 163/82
[2018-06-28 20:00] VITALS: BP 155/94
[2018-06-29 04:00] VITALS: BP 150/86
[2018-06-29 05:54] LABS: BASOPHILS 0 % (0-2); EOSINOPHILS 1.8 % (0-7); HEMATOCRIT 25.2 % (42.0-54.0); IMMATURE GRANULOCYTES 0.2 % (0-5); LYMPHOCYTES 16.3 % (15-50); MCHC 31.7 g/dL (31.0-37.0); MCV 91.3 fL (80.0-100.0); MEAN PLATELET VOLUME 9.9 fL (7.4-10.4); MONOCYTES 9.7 % (2-11); PLATELET COUNT 131 10x3/uL (130-400); RBC 2.76 10x6/uL (4.20-6.10); RDW 16.3 % (11.5-14.5)
[2018-06-29 06:26] LABS: CALCIUM 7.3 mg/dL (8.5-10.1); CARBON DIOXIDE 27.2 mmol/L (21.0-32.0); CREATININE - SERUM 6.2 mg/dL (0.6-1.3); PHOSPHOROUS 4.8 mg/dL (2.5-4.9); POTASSIUM - SERUM 4.2 mmol/L (3.5-5.1)
[2018-06-29 08:13] VITALS: BP 180/121
[2018-06-29] MEDS ORDERED: ASPIRIN325 MG PO (09:25)
[2018-06-29] MEDS ORDERED: METOPROLOL TART50 MG PO (09:25)
[2018-06-29] MEDS ORDERED: HYDRALAZINE HC100 MG PO (09:26)
[2018-06-29 15:24] LABS: HEPATITIS C ANTIBODY >11.0 S/CO RAT (0.0-0.9)
== END 2018-06-29 11:15 | disposition home or self-care (01) | DRG 286 ==
LOC: OBSVTIME → D.ER 18:10 → OBSVTIME 21:28 → D.EDHOLD 21:28 → D.ER 21:28 → D.M2 21:28 → D.EDHOLD 21:32 → D.M2 21:32 → OBSVTIME 21:38 → D.M2 21:38
PROVIDERS: Family Medicine; Internal Medicine Interventional Cardiology; Internal Medicine Nephrology
PROC: B2151ZZ Fluoroscopy of Left Heart using Low Osmolar Contrast (ICD-10-PCS; 2018-06-26)
PROC: 4A023N7 Measurement of Cardiac Sampling and Pressure, Left Heart, Percutaneous Approach (ICD-10-PCS; 2018-06-26)
PROC: B2111ZZ Fluoroscopy of Multiple Coronary Arteries using Low Osmolar Contrast (ICD-10-PCS; principal; 2018-06-26 11:00)
DX: R07.89 Other chest pain (principal); N18.6 End stage renal disease; I12.0 Hypertensive chronic kidney disease with stage 5 chronic kidney disease or end stage renal disease; I42.7 Cardiomyopathy due to drug and external agent; I16.0 Hypertensive urgency; Z99.2 Dependence on renal dialysis; F15.10 Other stimulant abuse, uncomplicated; E11.22 Type 2 diabetes mellitus with diabetic chronic kidney disease; D63.8 Anemia in other chronic diseases classified elsewhere

== ENCOUNTER 2018-07-01 22:28 | Observation (INO) | payer MEDICAID ==
[~2018-07-01] VITALS: Ht 177.8 cm; Wt 76.5 kg
--- NOTE | ~2018-07-01 | MORECARE ---
CASE MANAGEMENT DISCHARGE SUMMARY PATIENT: ODETTE OH UNIT: [id number] ADM DATE: 07/02/18 AGE: 57 : 64 SEX: M ROOM/BED: D.9196 AUTHOR: MARU,DOC PHYSICIAN: REFERRING PHYSICIAN: JUAN ANDRADE MD DATE OF SERVICE: 07/03/18 Discharge Plan Patient Name: ODETTE OH [facility] [facility] 1960 Planned Disposition: Home Anticipated Discharge Date: 07/04/18 Discharge Date: Expected LOS: 2 Initial Reviewer: [email or web address] Initial Review Date: 07/03/2018 Generated: 07/03/18 6:43 pm Comments DCP- Discharge Planning Updated by [email or web address]: Jeff Christopher on 07/03/18 4:[address] Patient Name: ODETTE OH Admission Status: ER Accout number: [id number] Admission Date: 07-02-2018 : 1960 Admission Diagnosis: Attending: JUAN ANDRADE Current LOS: 1 Anticipated DC Date: 07-04-2018 Planned Disposition: Home Primary Insurance: MEDICAID [place] Discharge Planning Comments: CM RECEIVED ORDER TO PROVIDE EMERGENCY ROOM DOCTOR WITH DR. METZGER'S NOTE FROM TODAY AND PROVIDE PT WITH TRANSPORTATION INFORMATION TO ASSIST WITH GETTING TO AND FROM DIALYSIS. CM PRINTED ORDER AND NOTE, PROVIDED TO LENO GARCIA WHO WILL ENSURE EMERGENCY ROOM DOCTOR WILL RECEIVE THE NOTE. CM MET WITH PT IN ROOM TO DISCUSS DISCHARGE PLANNING AND NEEDS. PT REPORTS LIVING AT HOME INDEPENDENTLY WITH HIS ADULT DAUGHTER. PT HAS A CANE WITH NO MEDICAL EQUIPMENT PROVIDER. PT HAS NO OUTSIDE SERVICES ASSISTING IN THE HOME. CM DISCUSSED AVAILABILITY OF HOME HEALTH, REHAB SERVICES AND MEDICAL EQUIPMENT. PT DENIES DISCHARGE NEEDS, REPORTS HIS DAUGHTER WILL PICK HIM UP FOR DISCHARGE HOME. CM DISCUSSED IMPORTANTANCE OF GETTING TO DIALYSIS SCHEDULED AND PROVIDED PT WITH MEDICAID TRANSPROTATION NUMBER PT IS ELIGIBLE FOR FREE TRANSPORTATION TO ALL MEDICAL APPOINTMENTS AND PROCEDURES. PT REPORTS HE IS AWARE OF THE SERVICES, USES THE SERVICE AND KNOWS THE NUMBER. PT REPORTS HE DID NOT HAVE ENOUGH TIME TO ARRANGE THE SERVICE AGAIN AFTER ARRIVAL AT HOME IT REQUIRES 48 HOURS NOTICE. CM EXPLAINED THAT PT SHOULD HAVE THIS APPOINTMENT ALREADY ARRANGED RECURRING, WHICH WOULD ONLY REQUIRE PT TO CALL AND CONFIRM HE HIS HOME AFTER GETTING HOME FROM THE HOSPITAL. CM DISCUSSED PT'S DRUG USE AND ILL EFFECTS ON PT'S HEALTH; PT REPORTS HE IS DOING WHAT HE HAS TO DO TO TAKE CARE OF HIMSELF; PT DID NOT WANT ANY INFORMATION REGARDING ADDICTION RESOURCES AND STATED THAT HE WANTS CM TO TELL THE DOCTOR TO GIVE HIM SOME HYDRO'S OR SOME OTHER PAIN PILLS THAT HE CAN TAKE AT HOME NOW AND THEN WHEN HE NEEDS IT FOR PAIN AND HE WOULD NOT HAVE TO DO OTHER THINGS TO TAKE CARE OF HIMSELF. PT INSTRUCTED CM TO TAKE THE INFORMATION "WITH YOU OUT OF HERE". PT THEN THANKED CM. PT PLANS TO DISCHARGE HOME WITH HIS DAUGHTER, REPORTS HIS DAUGHTER WILL PICK HIM UP. PT DENIES NEED FOR DRUG REHAB SERVICES, REPORTS HE IS NOT ADDICTED AND IS ONLY TRYING TO CONTROL HIS PAIN AT HOME. PT HAS FREE MEDICAID TRANSPORTATION TO ALL MEDICAL APPOINTMENTS AND PROCEDURES TO INCLUDE DIALYSIS, PT REPORTS KNOWING THE NUMBER. PT DENIES DISCHARGE NEEDS. Operations Section Manager: Jeff Christopher DCPIA - Discharge Planning Initial Assessment Updated by [email or web address]: Jeff Christopher on 07/03/18 5:27 pm * Is the patient Alert and Oriented? Yes * How many steps to enter\\exit or inside your home? NONE * PCP DR. VÁZQUEZ IN [place] * Pharmacy [facility] [place] * Preadmission Environment Home with Family * ADLs Independent * Equipment Cane * Other Equipment NO MEDICAL EQUIPMENT PROVIDER PREFERENCE * List name and contact numbers for known caregivers / representatives who currently or will assist patient after discharge: ROMA OH DTR, JOCELYN GILMORE, JENNIFER LIANG, SISTER IN LAW, * Verbal permission to speak to the caregivers and representatives has been obtained from the patient. N/A * Community resources currently utilized Other * Please name any agencies selected above. OUTPATIENT DIALYSIS, MWF, [place] [facility], MEDICAID TRANSPORT * Additional services required to return to the preadmission environment? No * Can the patient safely return to the preadmission environment? Yes * Has this patient been hospitalized within the prior 30 days at any hospital? Yes Last DP export: 07/03/18 4:28 Patient Name: ODETTE OH Page 29098 at 6930 All edits/amendments must be made on the electronic document DICTATION DATE: 07/03/181742 DRUM MAKER: LUH 07/03/181742 RPT#: [id number] [place] DATE: STATUS: ADM IN [facility] [address] [place] [address] END OF REPORT
--- NOTE | ~2018-07-01 | MORECARE ---
CASE MANAGEMENT DISCHARGE SUMMARY PATIENT: ODETTE OH UNIT: [id number] ADM DATE: 07/02/18 AGE: 57 : 64 SEX: M ROOM/BED: D.5616 AUTHOR: ETHAN MAHONEY PHYSICIAN: REFERRING PHYSICIAN: JUAN ANDRADE MD DATE OF SERVICE: 07/04/18 Discharge Plan Patient Name: ODETTE OH Facility: [facility]:[place] : 1960 Planned Disposition: Home Anticipated Discharge Date: 07/04/18 Discharge Date: Expected LOS: 2 Initial Reviewer: [email or web address] Initial Review Date: 07/03/2018 Generated: 07/04/18 1:07 pm Comments DCP- Discharge Planning Updated by [email or web address]: Jeff Christopher on 07/04/18 11:[address] Patient Name: ODETTE OH Encounter No: [id number] : 1960 Primary Insurance: MEDICAID [place] Anticipated DC Date: 07-04-2018 Planned Disposition: Home DCP follow-up note: CM MET WITH PT IN ROOM TO DISCUSS DISCHARGE NEEDS DISCHARGE ORDER HAS BEEN RECEIVED. PT DENIES NEEDS OTHER THAN NEEDING CM TO CALL HIS DAUGHTER ROMA OH TO ASK FOR TRANPORTATION HOME. PT REPORTS IF ROMA IS NOT ABLE TO PICK HIM UP, PLEASE CALL MEDICAID TRANSPORTATION. CM CALLED ROMA, , LEFT DETAILED MESSAGE ASKING FOR RETURN CALL. CM WAITING ON RETURN CALL FROM PT'S DAUGHTER TO SEE IF SHE CAN AND WILL CHAIR AND COUCH MAKER PT FOR DISCHARGE HOME TODAY. SUSI Farmer DCP- Discharge Planning Updated by [email or web address]: Jeff Christopher on 07/03/18 4:[address] Patient Name: ODETTE OH Admission Status: ER Accout number: [id number] Admission Date: 07-02-2018 : 1960 Admission Diagnosis: Attending: JUAN ANDRADE Current LOS: 1 Anticipated DC Date: 07-04-2018 Planned Disposition: Home Primary Insurance: MEDICAID [place] Discharge Planning Comments: CM RECEIVED ORDER TO PROVIDE EMERGENCY ROOM DOCTOR WITH DR. METZGER'S NOTE FROM TODAY AND PROVIDE PT WITH TRANSPORTATION INFORMATION TO ASSIST WITH GETTING TO AND FROM DIALYSIS. CM PRINTED ORDER AND NOTE, PROVIDED TO LENO GARCIA WHO WILL ENSURE EMERGENCY ROOM DOCTOR WILL RECEIVE THE NOTE. CM MET WITH PT IN ROOM TO DISCUSS DISCHARGE PLANNING AND NEEDS. PT REPORTS LIVING AT HOME INDEPENDENTLY WITH HIS ADULT DAUGHTER. PT HAS A CANE WITH NO MEDICAL EQUIPMENT PROVIDER. PT HAS NO OUTSIDE SERVICES ASSISTING IN THE HOME. CM DISCUSSED AVAILABILITY OF HOME HEALTH, REHAB SERVICES AND MEDICAL EQUIPMENT. PT DENIES DISCHARGE NEEDS, REPORTS HIS DAUGHTER WILL PICK HIM UP FOR DISCHARGE HOME. CM DISCUSSED IMPORTANTANCE OF GETTING TO DIALYSIS SCHEDULED AND PROVIDED PT WITH MEDICAID TRANSPROTATION NUMBER PT IS ELIGIBLE FOR FREE TRANSPORTATION TO ALL MEDICAL APPOINTMENTS AND PROCEDURES. PT REPORTS HE IS AWARE OF THE SERVICES, USES THE SERVICE AND KNOWS THE NUMBER. PT REPORTS HE DID NOT HAVE ENOUGH TIME TO ARRANGE THE SERVICE AGAIN AFTER ARRIVAL AT HOME IT REQUIRES 48 HOURS NOTICE. CM EXPLAINED THAT PT SHOULD HAVE THIS APPOINTMENT ALREADY ARRANGED RECURRING, WHICH WOULD ONLY REQUIRE PT TO CALL AND CONFIRM HE HIS HOME AFTER GETTING HOME FROM THE HOSPITAL. CM DISCUSSED PT'S DRUG USE AND ILL EFFECTS ON PT'S HEALTH; PT REPORTS HE IS DOING WHAT HE HAS TO DO TO TAKE CARE OF HIMSELF; PT DID NOT WANT ANY INFORMATION REGARDING ADDICTION RESOURCES AND STATED THAT HE WANTS CM TO TELL THE DOCTOR TO GIVE HIM SOME HYDRO'S OR SOME OTHER PAIN PILLS THAT HE CAN TAKE AT HOME NOW AND THEN WHEN HE NEEDS IT FOR PAIN AND HE WOULD NOT HAVE TO DO OTHER THINGS TO TAKE CARE OF HIMSELF. PT INSTRUCTED CM TO TAKE THE INFORMATION "WITH YOU OUT OF HERE". PT THEN THANKED CM. PT PLANS TO DISCHARGE HOME WITH HIS DAUGHTER, REPORTS HIS DAUGHTER WILL PICK HIM UP. PT DENIES NEED FOR DRUG REHAB SERVICES, REPORTS HE IS NOT ADDICTED AND IS ONLY TRYING TO CONTROL HIS PAIN AT HOME. PT HAS FREE MEDICAID TRANSPORTATION TO ALL MEDICAL APPOINTMENTS AND PROCEDURES TO INCLUDE DIALYSIS, PT REPORTS KNOWING THE NUMBER. PT DENIES DISCHARGE NEEDS. Gun Stock Checker: Jeff Christopher DCPIA - Discharge Planning Initial Assessment Updated by [email or web address]: Jeff Christopher on 07/03/18 5:27 pm * Is the patient Alert and Oriented? Yes * How many steps to enter\\exit or inside your home? NONE * PCP DR. VÁZQUEZ IN [place] * Pharmacy [facility] [place] * Preadmission Environment Home with Family * ADLs Independent * Equipment Cane * Other Equipment NO MEDICAL EQUIPMENT PROVIDER PREFERENCE * List name and contact numbers for known caregivers / representatives who currently or will assist patient after discharge: ROMA OH DTR, PAUL LIANGJOCELYN, JENNIFER LIANG, SISTER IN LAW, * Verbal permission to speak to the caregivers and representatives has been obtained from the patient. N/A * Community resources currently utilized Other * Please name any agencies selected above. OUTPATIENT DIALYSIS, MWF, [facility], MEDICAID TRANSPORT * Additional services required to return to the preadmission environment? No * Can the patient safely return to the preadmission environment? Yes * Has this patient been hospitalized within the prior 30 days at any hospital? Yes Last DP export: 07/03/18 4:43 Patient Name: ODETTE OH Page 14575 at 1207 All edits/amendments must be made on the electronic document DICTATION DATE: 07/04/181206 CASHIER SUPERVISOR: LUH 07/04/181206 RPT#: [id number] [place] DATE: STATUS: ADM IN [facility] [address] [place] [address] END OF REPORT
--- NOTE | ~2018-07-01 | MORECARE ---
CASE MANAGEMENT DISCHARGE SUMMARY PATIENT: ODETTE OH UNIT: [id number] ADM DATE: 07/02/18 AGE: 57 : 64 SEX: M ROOM/BED: D.2116 AUTHOR: ETHAN MAHONEY PHYSICIAN: REFERRING PHYSICIAN: JUNA ANDRADE MD DATE OF SERVICE: 07/03/18 Discharge Plan Patient Name: ODETTE OH Facility: [facility]:[place] : 1960 Planned Disposition: Home Anticipated Discharge Date: 07/04/18 Discharge Date: Expected LOS: 2 Initial Reviewer: [email or web address] Initial Review Date: 07/03/2018 Generated: 07/03/18 6:28 pm DCPIA - Discharge Planning Initial Assessment Updated by [email or web address]: Jeff Christopher on 07/03/18 5:27 pm * Is the patient Alert and Oriented? Yes * How many steps to enter\exit or inside your home? NONE * PCP DR. VÁZQUEZ IN [place] * Pharmacy [facility] IN [place] * Preadmission Environment Home with Family * ADLs Independent * Equipment Cane * Other Equipment NO MEDICAL EQUIPMENT PROVIDER PREFERENCE * List name and contact numbers for known caregivers / representatives who currently or will assist patient after discharge: ROMA OH DTR, JOCELYN GILMORE, JENNIFER LIANG, SISTER IN LAW, * Verbal permission to speak to the caregivers and representatives has been obtained from the patient. N/A * Community resources currently utilized Other * Please name any agencies selected above. OUTPATIENT DIALYSIS, F, [place] [facility], MEDICAID TRANSPORT * Additional services required to return to the preadmission environment? No * Can the patient safely return to the preadmission environment? Yes * Has this patient been hospitalized within the prior 30 days at any hospital? Yes Last DP export: 07/02/18 1:23 Patient Name: ODETTE OH Page 15869 at 8120 All edits/amendments must be made on the electronic document DICTATION DATE: 07/03/181727 SUPERVISOR ROVING DEPARTMENT: L[facility] 07/03/181727 RPT#: [id number] [place] DATE: STATUS: ADM IN [facility] [address] [place] [address] END OF REPORT
--- NOTE | ~2018-07-01 | DS ---
PATIENT:ODETTE OH :[birth year] MEDICAL RECORD: [id number] DISCHARGE SUMMARY ADMISSION DATE: 07/02/18 DISCHARGE DATE: 07/04/18 HOSPITAL COURSE: Mr. 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 He has had a cardiac catheterization in the last 2 weeks, which was negative by Dr. Parker. He has also had a VQ scan, which was low probability of pulmonary embolus and was noted to have some rib fractures of indeterminate age, possibly the cause of his chest pain. Chest pain has been felt to be noncardiac in origin. He reappeared in the Emergency Room again and received apparently morphine again and is readmitted for his chest pain. Workup again is negative. He underwent dialysis since he had missed his regular dialysis treatments on a recurrent basis. He has a telemetry strips were stable. Exam was stable and he was back to baseline with resumption of his meds and dialysis and off any pain medications. He had no chest pain. Seen by case management prior to discharge and the patient has Medicaid and can arrange for transportation by merely making a phone call. DISCHARGE DIAGNOSES: 1. Chest pain, noncardiac origin. 2. Chronic drug abuse with positive drug screens for cocaine and opiates, poor medication, dietary and dialysis compliance. 3. End-stage renal disease. 4. Accelerated hypertension. PLAN: The patient will be discharged today. He will resume his home meds, which will be Renvela 2.4 grams t.i.d., losartan 50 b.i.d., amlodipine 5 b.i.d., clonidine 0.2 b.i.d., baby aspirin 1 daily. I have instructed the patient to call Medicaid for transportation to dialysis. I will send a copy of this discharge summary to Dr. Schmitt in the Emergency Room concerning a recurrent administration of morphine, which I would not advise in the future as I think this is contributing to his frequent emergency room visits. TRANSINT:[id number] Voice Confirmation ID: [id number] DOCUMENT ID: [id number] JAYDE METZGER MD at 0815 CC: LATANYA SCHMITT [id number] DICTATION DATE: 07/04/1804 HAT IRONER: 07/04/1824 DIS IN 07/04/18 [facility] [address] [place] [address]
--- NOTE | ~2018-07-01 | MORECARE ---
CASE MANAGEMENT DISCHARGE SUMMARY PATIENT: ODETTE OH UNIT: [id number] ADM DATE: 07/02/18 AGE: 57 : 64 SEX: M ROOM/BED: D.2116 AUTHOR: MARU,DOC PHYSICIAN: REFERRING PHYSICIAN: JUAN ANDRADE MD DATE OF SERVICE: 07/04/18 Discharge Plan Patient Name: ODETTE OH Facility: [facility]:[place] : 1960 Planned Disposition: Home Anticipated Discharge Date: 07/04/18 Discharge Date: Expected LOS: 2 Initial Reviewer: [email or web address] Initial Review Date: 07/03/2018 Generated: 07/04/18 1:50 pm Comments DCP- Discharge Planning Updated by [email or web address]: Jeff Hedrick on 07/04/18 11:[address] Patient Name: ODETTE OH Encounter No: [id number] : 1960 Primary Insurance: MEDICAID [place] Anticipated DC Date: 07-04-2018 Planned Disposition: Home DCP follow-up note: CM MET WITH PT IN ROOM TO DISCUSS DISCHARGE NEEDS DISCHARGE ORDER HAS BEEN RECEIVED. PT DENIES NEEDS OTHER THAN NEEDING CM TO CALL HIS DAUGHTER ROMA OH TO ASK FOR TRANPORTATION HOME. PT REPORTS IF ROMA IS NOT ABLE TO PICK HIM UP, PLEASE CALL MEDICAID TRANSPORTATION. CM CALLED ROMA, , LEFT DETAILED MESSAGE ASKING FOR RETURN CALL. CM WAITING ON RETURN CALL FROM PT'S DAUGHTER TO SEE IF SHE CAN AND WILL PATTERN FILER PT FOR DISCHARGE HOME TODAY. Jeff Hedrick, CASE MANAGEMENT Appended by Jeff Hedrick on 07/04/2018 12:45 DRIER OPERATOR: CM CALLED ROMA OH WHO ANSWERED PHONE, REPORTS SHE IS AT WORK AND IS NOT ABLE TO PATTERN FILER PT TODAY. PT'S OTHER DAUGHTER HAS NO CAR AND IS AT HOME TO RECEIVE PT. CM CALLED MEDICAID TRANSPORTATION, , SPOKE TO FRANCISCO AND ARRANGED PATTERN FILER AFTER 1PM TODAY, SCAT TO CALL NURSES STATION UPON ARRIVAL TO PATTERN FILER PT AT THE [place]. CONFIRMATION # [id number]. CM ADVISED PT AND ALSO ADVISED PT TO CALL MEDICAID TRANSPORTATION TO ARRANGE HIS REGULARLY SCHEDULED DIALYSIS PATTERN FILER AT HOME. PT REPORTS UNDERSTANDING, DENIES FURTHER NEEDS. PT DISCHARGING TO HOME OF ROMA OH, [address] [place] [address]. [phone]. CM NOTIFIED MARKET DIRECTOR NURSE AND AUXILIARY POWERPLANT OPERATOR. CM PROVIDED EMERGENCY ROOM DOCTOR A COPY OF DR. METZGER'S DC SUMMARY DIRECTED. JEFF HEDRICK, CASE MANAGEMENT DCP- Discharge Planning Updated by [email or web address]: Jeff Hedrick on 07/03/18 4:[address] Patient Name: ODETTE OH Admission Status: ER Accout number: [id number] Admission Date: 07-02-2018 : 1960 Admission Diagnosis: Attending: JUAN ANDRADE Current LOS: 1 Anticipated DC Date: 07-04-2018 Planned Disposition: Home Primary Insurance: MEDICAID [place] Discharge Planning Comments: CM RECEIVED ORDER TO PROVIDE EMERGENCY ROOM DOCTOR WITH DR. METZGER'S NOTE FROM TODAY AND PROVIDE PT WITH TRANSPORTATION INFORMATION TO ASSIST WITH GETTING TO AND FROM DIALYSIS. CM PRINTED ORDER AND NOTE, PROVIDED TO LENO GARCIA WHO WILL ENSURE EMERGENCY ROOM DOCTOR WILL RECEIVE THE NOTE. CM MET WITH PT IN ROOM TO DISCUSS DISCHARGE PLANNING AND NEEDS. PT REPORTS LIVING AT HOME INDEPENDENTLY WITH HIS ADULT DAUGHTER. PT HAS A CANE WITH NO MEDICAL EQUIPMENT PROVIDER. PT HAS NO OUTSIDE SERVICES ASSISTING IN THE HOME. CM DISCUSSED AVAILABILITY OF HOME HEALTH, REHAB SERVICES AND MEDICAL EQUIPMENT. PT DENIES DISCHARGE NEEDS, REPORTS HIS DAUGHTER WILL PICK HIM UP FOR DISCHARGE HOME. CM DISCUSSED IMPORTANTANCE OF GETTING TO DIALYSIS SCHEDULED AND PROVIDED PT WITH MEDICAID TRANSPROTATION NUMBER PT IS ELIGIBLE FOR FREE TRANSPORTATION TO ALL MEDICAL APPOINTMENTS AND PROCEDURES. PT REPORTS HE IS AWARE OF THE SERVICES, USES THE SERVICE AND KNOWS THE NUMBER. PT REPORTS HE DID NOT HAVE ENOUGH TIME TO ARRANGE THE SERVICE AGAIN AFTER ARRIVAL AT HOME IT REQUIRES 48 HOURS NOTICE. CM EXPLAINED THAT PT SHOULD HAVE THIS APPOINTMENT ALREADY ARRANGED RECURRING, WHICH WOULD ONLY REQUIRE PT TO CALL AND CONFIRM HE HIS HOME AFTER GETTING HOME FROM THE HOSPITAL. CM DISCUSSED PT'S DRUG USE AND ILL EFFECTS ON PT'S HEALTH; PT REPORTS HE IS DOING WHAT HE HAS TO DO TO TAKE CARE OF HIMSELF; PT DID NOT WANT ANY INFORMATION REGARDING ADDICTION RESOURCES AND STATED THAT HE WANTS CM TO TELL THE DOCTOR TO GIVE HIM SOME HYDRO'S OR SOME OTHER PAIN PILLS THAT HE CAN TAKE AT HOME NOW AND THEN WHEN HE NEEDS IT FOR PAIN AND HE WOULD NOT HAVE TO DO OTHER THINGS TO TAKE CARE OF HIMSELF. PT INSTRUCTED CM TO TAKE THE INFORMATION "WITH YOU OUT OF HERE". PT THEN THANKED CM. PT PLANS TO DISCHARGE HOME WITH HIS DAUGHTER, REPORTS HIS DAUGHTER WILL PICK HIM UP. PT DENIES NEED FOR DRUG REHAB SERVICES, REPORTS HE IS NOT ADDICTED AND IS ONLY TRYING TO CONTROL HIS PAIN AT HOME. PT HAS FREE MEDICAID TRANSPORTATION TO ALL MEDICAL APPOINTMENTS AND PROCEDURES TO INCLUDE DIALYSIS, PT REPORTS KNOWING THE NUMBER. PT DENIES DISCHARGE NEEDS. Sales Development Associate: Jeff Hedrick DCPIA - Discharge Planning Initial Assessment Updated by [email or web address]: Jeff Hedrick on 07/03/18 5:27 pm * Is the patient Alert and Oriented? Yes * How many steps to enter\\exit or inside your home? NONE * PCP DR. VÁZQUEZ IN [place] * Pharmacy [facility] [place] * Preadmission Environment Home with Family * ADLs Independent * Equipment Cane * Other Equipment NO MEDICAL EQUIPMENT PROVIDER PREFERENCE * List name and contact numbers for known caregivers / representatives who currently or will assist patient after discharge: ROMA OH DTR, JOCELYN GILMORE, JENNIFER LIANG, SISTER IN LAW, * Verbal permission to speak to the caregivers and representatives has been obtained from the patient. N/A * Community resources currently utilized Other * Please name any agencies selected above. OUTPATIENT DIALYSIS, MWF, [place] [facility], MEDICAID TRANSPORT * Additional services required to return to the preadmission environment? No * Can the patient safely return to the preadmission environment? Yes * Has this patient been hospitalized within the prior 30 days at any hospital? Yes Last DP export: 07/04/18 11:07 Patient Name: ODETTE OH Page 43912 at 1251 All edits/amendments must be made on the electronic document DICTATION DATE: 07/04/18 1250 SPECIAL EDUCATION RESOURCE TEACHER: LUH 07/04/18 1250 RPT#: [id number] [place] DATE: STATUS: ADM IN [facility] [address] [place] [address] END OF REPORT
--- NOTE | ~2018-07-01 | MORECARE ---
CASE MANAGEMENT DISCHARGE SUMMARY PATIENT: ODETTE OH UNIT: [id number] ADM DATE: 07/02/18 AGE: 57 : 64 SEX: M ROOM/BED: D.2116 AUTHOR: ETHAN MAHONEY PHYSICIAN: REFERRING PHYSICIAN: JUAN ANDRADE MD DATE OF SERVICE: 07/02/18 Discharge Plan Patient Name: ODETTE OH [facility] : 1960 Planned Disposition: Anticipated Discharge Date: Discharge Date: Expected LOS: Initial Reviewer: [email or web address] Initial Review Date: 07/02/2018 Generated: 07/02/18 3:23 pm Patient Name: ODETTE OH Page 83475 at 1423 All edits/amendments must be made on the electronic document DICTATION DATE: 07/02/18 142 RETAIL AND RESTAURANT: LUH 07/02/18 1423 RPT#: [id number] [place] DATE: STATUS: ADM IN [facility] [address] [place] [address] END OF REPORT
[~2018-07-01 22:28] MED LIST changes: +ASPIRIN325 MG PO; +METOPROLOL TART50 MG PO
[2018-07-01 22:50] VITALS: BP 163/114
[2018-07-01 23:21] LABS: BASOPHILS 0 % (0-2); EOSINOPHILS 1.1 % (0-7); HEMATOCRIT 26.2 % (42.0-54.0); HEMOGLOBIN 8.3 g/dL (13.5-17.5); IMMATURE GRANULOCYTES 0.3 % (0-5); LYMPHOCYTES 18.1 % (15-50); MCH 29.3 pg (26.0-34.0); MCHC 31.7 g/dL (31.0-37.0); MCV 92.6 fL (80.0-100.0); MEAN PLATELET VOLUME 9.7 fL (7.4-10.4); MONOCYTES 8.2 % (2-11); NEUTROPHILS 72.3 % (40-80); PLATELET COUNT 139 10x3/uL (130-400); RBC 2.83 10x6/uL (4.20-6.10); RDW 16.6 % (11.5-14.5); WBC 9.1 10x3/uL (4.8-10.8)
[2018-07-01 23:32] LABS: APTT 36.6 SECONDS (22.8-39.4); INR 1.23 (0.85-1.17); PROTIME 15.2 SECONDS (11.6-15.0)
[2018-07-01 23:40] LABS: ALBUMIN 2.9 g/dL (3.4-5.0); ALKALINE PHOSPHATASE 77 U/L (46-116); ALT (SGPT) 16 U/L (10-68); BILIRUBIN - TOTAL 0.53 mg/dL (0.2-1.3); CALC OSMOLALITY 299 mosm/kg (275-300); CALCIUM 8.1 mg/dL (8.5-10.1); CARBON DIOXIDE 22.8 mmol/L (21.0-32.0); CHLORIDE - SERUM 102 mmol/L (98-107); CKMB 1.2 U/L (0.0-3.6); CREATINE KINASE 68 UL (21-232); CREATININE - SERUM 8.8 mg/dL (0.6-1.3); GLUCOSE 97 mg/dL (74-106); MAGNESIUM - SERUM 2.1 mg/dL (1.8-2.4); POTASSIUM - SERUM 4.3 mmol/L (3.5-5.1); SODIUM 140 mmol/L (136-145); UREA NITROGEN 72 mg/dL (7-18); eGFR NON AFRICAN AMERICAN 7 mL/min (90-120)
[2018-07-01 23:42] LABS: PRO BNP 44978 pg/mL (0-125)
[2018-07-02] VITALS (7 sets, daily range): BP systolic 131–211; BP diastolic 66–118; BMI 24.0
[2018-07-02 00:22] LABS: APPEARANCE HAZY (CLEAR); BILIRUBIN NEGATIVE (NEGATIVE); COLOR YELLOW (YELLOW); GLUCOSE 50 mg/dL (NEGATIVE); KETONE NEGATIVE (NEGATIVE); NITRITE NEGATIVE (NEGATIVE); PROTEIN 2+ mg/dL (NEGATIVE); RED CELLS - URINE 25-50 /hpf (0-5); SPECIFIC GRAVITY 1.005 (1.005-1.020); UROBILINOGEN NORMAL (NORMAL); WHITE CELLS - URINE NSEEN /hpf (0-5)
[2018-07-02 00:42] LABS: UDS - AMPHET NEGATIVE QUAL (NEGATIVE); UDS - BARB NEGATIVE QUAL (NEGATIVE); UDS - BENZO NEGATIVE QUAL (NEGATIVE); UDS - COCAINE POSITIVE QUAL (NEGATIVE); UDS - OPIATE POSITIVE QUAL (NEGATIVE); UDS - PCP NEGATIVE QUAL (NEGATIVE); UDS - THC NEGATIVE QUAL (NEGATIVE)
[2018-07-02] MEDS ORDERED: NEPHRO-VITE RX1 TAB PO (01:36)
[2018-07-02 05:28] LABS: BASOPHILS 0 % (0-2); EOSINOPHILS 0.8 % (0-7); HEMATOCRIT 25.1 % (42.0-54.0); HEMOGLOBIN 7.9 g/dL (13.5-17.5); IMMATURE GRANULOCYTES 0.3 % (0-5); LYMPHOCYTES 12.3 % (15-50); MCH 29.2 pg (26.0-34.0); MCHC 31.5 g/dL (31.0-37.0); MCV 92.6 fL (80.0-100.0); MEAN PLATELET VOLUME 10.4 fL (7.4-10.4); MONOCYTES 8.4 % (2-11); NEUTROPHILS 78.2 % (40-80); PLATELET COUNT 146 10x3/uL (130-400); RBC 2.71 10x6/uL (4.20-6.10); RDW 16.9 % (11.5-14.5); WBC 9.9 10x3/uL (4.8-10.8)
[2018-07-02 05:59] LABS: ALBUMIN 2.7 g/dL (3.4-5.0); ALKALINE PHOSPHATASE 73 U/L (46-116); ALT (SGPT) 13 U/L (10-68); BILIRUBIN - TOTAL 0.66 mg/dL (0.2-1.3); CALC OSMOLALITY 298 mosm/kg (275-300); CALCIUM 7.7 mg/dL (8.5-10.1); CARBON DIOXIDE 22.1 mmol/L (21.0-32.0); CHLORIDE - SERUM 104 mmol/L (98-107); CKMB 1.2 U/L (0.0-3.6); CREATINE KINASE 58 UL (21-232); CREATININE - SERUM 9.1 mg/dL (0.6-1.3); GLUCOSE 94 mg/dL (74-106); POTASSIUM - SERUM 5.1 mmol/L (3.5-5.1); PROTEIN - SERUM 7.4 g/dL (6.4-8.2); SODIUM 140 mmol/L (136-145); TROPONIN-I 0.041 ng/mL (0.000-0.060); UREA NITROGEN 68 mg/dL (7-18); eGFR NON AFRICAN AMERICAN 6 mL/min (90-120)
[2018-07-03 02:08] VITALS: BP 180/92
[2018-07-03 04:30] VITALS: BP 178/101
[2018-07-03 07:07] LABS: BASOPHILS 0.2 % (0-2); EOSINOPHILS 2.5 % (0-7); HEMATOCRIT 25.3 % (42.0-54.0); HEMOGLOBIN 7.9 g/dL (13.5-17.5); IMMATURE GRANULOCYTES 0.2 % (0-5); MCH 28.7 pg (26.0-34.0); MCHC 31.2 g/dL (31.0-37.0); MEAN PLATELET VOLUME 10.3 fL (7.4-10.4); MONOCYTES 8.3 % (2-11); NEUTROPHILS 66.8 % (40-80); PLATELET COUNT 158 10x3/uL (130-400); RBC 2.75 10x6/uL (4.20-6.10); WBC 6.1 10x3/uL (4.8-10.8)
[2018-07-03 07:12] LABS: ANION GAP 20.8 mmol/L (8-16); CALCIUM 7.3 mg/dL (8.5-10.1); CARBON DIOXIDE 20.6 mmol/L (21.0-32.0); CREATININE - SERUM 9.8 mg/dL (0.6-1.3); POTASSIUM - SERUM 5.4 mmol/L (3.5-5.1)
[2018-07-03 12:34] VITALS: Ht 177.8 cm; Wt 76.5 kg
[2018-07-03 15:53] VITALS: BP 119/66
[2018-07-03 19:45] VITALS: BP 179/98
[2018-07-03 23:35] VITALS: BP 137/95
[2018-07-04 03:30] VITALS: BP 166/89
[2018-07-04 06:11] LABS: BASOPHILS 0 % (0-2); EOSINOPHILS 1.8 % (0-7); HEMOGLOBIN 8.9 g/dL (13.5-17.5); IMMATURE GRANULOCYTES 0.2 % (0-5); LYMPHOCYTES 17.8 % (15-50); MCH 27.8 pg (26.0-34.0); MCHC 31.8 g/dL (31.0-37.0); MEAN PLATELET VOLUME 10.1 fL (7.4-10.4); MONOCYTES 9.9 % (2-11); NEUTROPHILS 70.3 % (40-80); PLATELET COUNT 159 10x3/uL (130-400); RDW 20.1 % (11.5-14.5); WBC 5.6 10x3/uL (4.8-10.8)
[2018-07-04 06:33] LABS: MCV 87.5 fL (80.0-100.0)
[2018-07-04 06:42] LABS: ANION GAP 17.3 mmol/L (8-16); CALCIUM 7.5 mg/dL (8.5-10.1); CARBON DIOXIDE 25.2 mmol/L (21.0-32.0); PHOSPHOROUS 6.9 mg/dL (2.5-4.9)
[2018-07-04 06:43] LABS: POTASSIUM - SERUM 4.5 mmol/L (3.5-5.1)
[2018-07-04 09:59] VITALS: BP 155/87
[2018-07-04 11:42] VITALS: BP 121/73
[2018-07-04] MEDS ORDERED: COZAAR50 MG PO (11:58)
== END 2018-07-04 16:06 | disposition home or self-care (01) ==
LOC: D.ER 22:28 → D.M2 07-02 00:51 → OBSVTIME 07-02 00:51 → D.M2 07-02 00:51
PROVIDERS: Family Medicine; Internal Medicine Nephrology
DX: R07.89 Other chest pain (principal); I13.2 Hypertensive heart and chronic kidney disease with heart failure and with stage 5 chronic kidney disease, or end stage renal disease; N18.6 End stage renal disease; I50.9 Heart failure, unspecified; Z99.2 Dependence on renal dialysis; Z72.0 Tobacco use; F14.10 Cocaine abuse, uncomplicated; F11.10 Opioid abuse, uncomplicated; D64.9 Anemia, unspecified

== ENCOUNTER 2018-07-11 09:21 | Observation (INO) | payer MEDICAID ==
[~2018-07-11] VITALS: Ht 177.8 cm; Wt 73.4 kg
--- NOTE | ~2018-07-11 | MORECARE ---
CASE MANAGEMENT DISCHARGE SUMMARY PATIENT: ODETTE OH UNIT: [id number] ADM DATE: 07/11/18 AGE: 57 : 64 SEX: M ROOM/BED: D.2100 AUTHOR: MARU,DOC PHYSICIAN: REFERRING PHYSICIAN: LEONA ALCANTAR MD DATE OF SERVICE: 07/12/18 Discharge Plan Patient Name: ODETTE OH Facility: [facility]:[place] : 1960 Planned Disposition: Home Anticipated Discharge Date: 07/12/18 Discharge Date: 07/12/2018 Expected LOS: 1 Initial Reviewer: [email or web address] Initial Review Date: 07/12/2018 Generated: 07/12/18 6:43 pm Comments DCP- Discharge Planning Updated by [email or web address]: Jeff Christopher on 07/12/18 4:[address] Patient Name: ODETTE OH Admission Status: ER Accout number: [id number] Admission Date: 07-11-2018 : 1960 Admission Diagnosis: Attending: Leona Alcantar Current LOS: 1 Anticipated DC Date: 07-12-2018 Planned Disposition: Home Primary Insurance: MEDICAID [place] Discharge Planning Comments: CM RECEIVED REQUEST FROM BEDSIDE NURSE TO CALL MEDICAID TRANSPORTATION FOR PT TO GET HOME. CM MET WITH PT IN ROOM. PT LIVES WITH DAUGHTER, AMBULATES WITH A CANE WITH NO MEDICAL EQUIPMENT PROVIDER PREFERENCE. PT REPORTS HE IS INDEPENDENT IN SELF CARE. PT GOES TO DIALYSIS IN [place], MWF, 1030AM. PT STATES HE WILL CALL MEDICAID TRANSPORT FOR TUESDAY DAILYSIS WHEN HE GETS HOME, DENIES NEEDS OTHER THAN FOR MEDICAID TRANSPORT HOME. CM CALLED MEDICAID TRANSPORT, , SPOKE TO MATTEO AND SCHEDULED SURVEY SUPERINTENDENT TODAY. CONFIRMATION # [id number]. CM NOTIFIED PT IN ROOM WHO REPORTS HAVING FRIEND HERE TO PICK HIM UP AND TO CANCEL MEDICAID BUS. CM CALLED MEDICAID TRANSPORT AND CANCELLED. BEDSIDE NURSE NOTIFIED. Meter Readers Supervisor: Jeff Christopher DCPIA - Discharge Planning Initial Assessment Updated by [email or web address]: Jeff Christopher on 07/12/18 5:20 pm * Is the patient Alert and Oriented? Yes * How many steps to enter\exit or inside your home? NONE * PCP DR MCEKON [place] * [facility]acy [facility] [place] * Preadmission Environment Home with Family * ADLs Independent * Equipment Cane * Other Equipment NO MEDICAL EQUIPMENT PROVIDER PREFERENCE * List name and contact numbers for known caregivers / representatives who currently or will assist patient after discharge: ROMA KATARINA [place], * Verbal permission to speak to the caregivers and representatives has been obtained from the patient. N/A * Community resources currently utilized Other * Please name any agencies selected above. OUTPATIENT DIALYSIS, [place], MWF, 1030, MEDICAID TRANSPORTATION * Additional services required to return to the preadmission environment? No * Can the patient safely return to the preadmission environment? Yes * Has this patient been hospitalized within the prior 30 days at any hospital? Yes Last DP export: 07/12/18 4:22 Patient Name: ODETTE OH Page 03233 at 1743 All edits/amendments must be made on the electronic document DICTATION DATE: 07/12/181741 TOBACCO CUTTER: L[facility] 07/12/181741 RPT#: [id number] DC DATE:07/12/18 STATUS: DIS IN [facility] [address] [place] [address] END OF REPORT
--- NOTE | ~2018-07-11 | MORECARE ---
CASE MANAGEMENT DISCHARGE SUMMARY PATIENT: ODETTE OH UNIT: [id number] ADM DATE: 07/11/18 AGE: 57 : 64 SEX: M ROOM/BED: D.2107 AUTHOR: ETHAN MAHONEY PHYSICIAN: REFERRING PHYSICIAN: LEONA CHAND MD DATE OF SERVICE: 07/12/18 Discharge Plan Patient Name: [facility] [facility] 1960 Planned Disposition: Home Anticipated Discharge Date: 07/12/18 Discharge Date: 07/12/2018 Expected LOS: 1 Initial Reviewer: [email or web address] Initial Review Date: 07/12/2018 Generated: 07/12/18 6:22 pm DCPIA - Discharge Planning Initial Assessment Updated by [email or web address]: Jeff Christopher on 07/12/18 5:20 pm * Is the patient Alert and Oriented? Yes * How many steps to enter\exit or inside your home? NONE * PCP ANGEL PERALES * [facility] [place] * Preadmission Environment Home with Family * ADLs Independent * Equipment Cane * Other Equipment NO MEDICAL EQUIPMENT PROVIDER PREFERENCE * List name and contact numbers for known caregivers / representatives who currently or will assist patient after discharge: TEODORO BROWNLEER, * Verbal permission to speak to the caregivers and representatives has been obtained from the patient. N/A * Community resources currently utilized Other * Please name any agencies selected above. OUTPATIENT DIALYSIS, [place], [facility], 1030, MEDICAID TRANSPORTATION * Additional services required to return to the preadmission environment? No * Can the patient safely return to the preadmission environment? Yes * Has this patient been hospitalized within the prior 30 days at any hospital? Yes Patient Name: ODETTE OH Page [phone] at 1722 All edits/amendments must be made on the electronic document DICTATION DATE: 07/12/181721 TABLE KEEPER: [facility] 07/12/181721 RPT#: [id number] DC DATE:07/12/18 STATUS: DIS IN [place] [id number] [place] [address] END OF REPORT
[~2018-07-11 09:21] MED LIST changes: +COZAAR50 MG PO
[2018-07-11 10:10] LABS: BASOPHILS 0.2 % (0-2); EOSINOPHILS 1.3 % (0-7); HEMATOCRIT 25.8 % (42.0-54.0); HEMOGLOBIN 8.2 g/dL (13.5-17.5); IMMATURE GRANULOCYTES 0.2 % (0-5); LYMPHOCYTES 18.5 % (15-50); MCH 28.1 pg (26.0-34.0); MCHC 31.8 g/dL (31.0-37.0); MCV 88.4 fL (80.0-100.0); MEAN PLATELET VOLUME 10.1 fL (7.4-10.4); MONOCYTES 9.4 % (2-11); NEUTROPHILS 70.4 % (40-80); RBC 2.92 10x6/uL (4.20-6.10); WBC 6.2 10x3/uL (4.8-10.8)
[2018-07-11 10:13] LABS: PLATELET COUNT 127 10x3/uL (130-400)
[2018-07-11 10:22] LABS: ALKALINE PHOSPHATASE 85 U/L (46-116); ALT (SGPT) 18 U/L (10-68); BILIRUBIN - TOTAL 0.69 mg/dL (0.2-1.3); CALC OSMOLALITY 310 mosm/kg (275-300); CALCIUM 7.3 mg/dL (8.5-10.1); CARBON DIOXIDE 24.2 mmol/L (21.0-32.0); CHLORIDE - SERUM 104 mmol/L (98-107); CREATININE - SERUM 10.3 mg/dL (0.6-1.3); GLUCOSE 113 mg/dL (74-106); POTASSIUM - SERUM 4.1 mmol/L (3.5-5.1); PROTEIN - SERUM 8.2 g/dL (6.4-8.2); SODIUM 142 mmol/L (136-145); UREA NITROGEN 89 mg/dL (7-18); eGFR NON AFRICAN AMERICAN 6 mL/min (90-120)
[2018-07-11 10:39] LABS: CREATINE KINASE 87 UL (21-232)
[2018-07-11 17:10] VITALS: BP 224/124; Ht 177.8 cm; Wt 73.4 kg
[2018-07-11 19:00] VITALS: BP 194/109
[2018-07-12 01:14] VITALS: BP 174/97
[2018-07-12 05:25] VITALS: BP 180/101
[2018-07-12 07:44] LABS: BASOPHILS 0 % (0-2); EOSINOPHILS 1.3 % (0-7); HEMOGLOBIN 8.6 g/dL (13.5-17.5); IMMATURE GRANULOCYTES 0.2 % (0-5); LYMPHOCYTES 16.4 % (15-50); MCH 27.8 pg (26.0-34.0); MCHC 31.9 g/dL (31.0-37.0); MCV 87.4 fL (80.0-100.0); MEAN PLATELET VOLUME 10.1 fL (7.4-10.4); MONOCYTES 9.5 % (2-11); NEUTROPHILS 72.6 % (40-80); PLATELET COUNT 144 10x3/uL (130-400); RBC 3.09 10x6/uL (4.20-6.10); RDW 18.8 % (11.5-14.5); WBC 6.3 10x3/uL (4.8-10.8)
[2018-07-12 08:01] LABS: ANION GAP 15.8 mmol/L (8-16); CALCIUM 7.4 mg/dL (8.5-10.1); CARBON DIOXIDE 27.1 mmol/L (21.0-32.0); PHOSPHOROUS 5.2 mg/dL (2.5-4.9); POTASSIUM - SERUM 3.9 mmol/L (3.5-5.1)
[2018-07-12 08:05] LABS: CREATININE - SERUM 6.7 mg/dL (0.6-1.3)
[2018-07-12 09:27] VITALS: BP 189/95
== END 2018-07-12 14:49 | disposition home or self-care (01) ==
LOC: D.ER 09:21 → D.M2 11:24 → OBSVTIME 11:24 → D.M2 11:24
PROVIDERS: Emergency Medicine; Internal Medicine Nephrology
DX: E87.70 Fluid overload, unspecified (principal); I12.0 Hypertensive chronic kidney disease with stage 5 chronic kidney disease or end stage renal disease; N18.6 End stage renal disease; F17.213 Nicotine dependence, cigarettes, with withdrawal; Z99.2 Dependence on renal dialysis; Z91.15 Patient's noncompliance with renal dialysis; D63.1 Anemia in chronic kidney disease; Z91.14 Patient's other noncompliance with medication regimen; B19.20 Unspecified viral hepatitis C without hepatic coma; K21.9 Gastro-esophageal reflux disease without esophagitis; F15.90 Other stimulant use, unspecified, uncomplicated; F14.90 Cocaine use, unspecified, uncomplicated; E83.39 Other disorders of phosphorus metabolism

== ENCOUNTER 2018-07-17 14:32 | Emergency (ER) | payer MEDICAID ==
[~2018-07-17] VITALS: Ht 177.8 cm; Wt 63.6 kg
[2018-07-17 14:42] VITALS: Ht 177.8 cm; Wt 63.6 kg
[2018-07-17 17:50] LABS: BASOPHILS 0 % (0-2); EOSINOPHILS 0.9 % (0-7); HEMATOCRIT 25.9 % (42.0-54.0); HEMOGLOBIN 8.5 g/dL (13.5-17.5); IMMATURE GRANULOCYTES 0.5 % (0-5); LYMPHOCYTES 21.6 % (15-50); MCH 28.4 pg (26.0-34.0); MCHC 32.8 g/dL (31.0-37.0); MCV 86.6 fL (80.0-100.0); MEAN PLATELET VOLUME 9.9 fL (7.4-10.4); MONOCYTES 6.4 % (2-11); NEUTROPHILS 70.6 % (40-80); RBC 2.99 10x6/uL (4.20-6.10)
[2018-07-17 17:53] LABS: PLATELET COUNT 191 10x3/uL (130-400)
[2018-07-17 18:06] LABS: ALBUMIN 2.9 g/dL (3.4-5.0); ANION GAP 26.2 mmol/L (8-16); BILIRUBIN - TOTAL 0.65 mg/dL (0.2-1.3); CARBON DIOXIDE 20.5 mmol/L (21.0-32.0); CREATININE - SERUM 13.3 mg/dL (0.6-1.3); POTASSIUM - SERUM 4.7 mmol/L (3.5-5.1); PROTEIN - SERUM 8.3 g/dL (6.4-8.2)
[2018-07-17 18:33] LABS: CALCIUM 5.5 mg/dL (8.5-10.1)
[2018-07-18 01:55] VITALS: BP 197/104
== END 2018-07-18 01:55 | disposition home or self-care (01) ==
LOC: D.ER 14:32
PROVIDERS: Family Medicine
DX: I12.9 Hypertensive chronic kidney disease with stage 1 through stage 4 chronic kidney disease, or unspecified chronic kidney disease (principal); N18.9 Chronic kidney disease, unspecified; Z91.15 Patient's noncompliance with renal dialysis; Z76.5 Malingerer [conscious simulation]

== ENCOUNTER 2018-09-17 21:50 | Inpatient (IN) | payer MEDICAID ==
[~2018-09-17] VITALS: Ht 177.8 cm; Wt 80.6 kg
--- NOTE | ~2018-09-17 | HEMODYNAMI ---
PATIENT:ODETTE OH MEDICAL RECORD: [id number] : 64 LOCATION:[facility].211 ADMISSION DATE: 09/18/18 Generatedon:09/21/201815:16 Patient name: ODETTE OH Patient #: [id number] SSN: : Date of study: 09/21/2018 Page: Of Hemodynamic Procedure Report Patient Data Patient Demographics Procedure consent was obtained First Name: ODETTE Gender: Male Last Name: ADRIANO : 1960 Middle Initial: L Age: 57 year(s) Patient #: [id number] Race: Black Additional ID: [id number] Contact details [address]: [address] [place] [address] State: [place] City: [place] Zip code: [address] Past Medical History Allergies Allergen Reaction Date Comments Reported Other allergy 12/23/2017 Minoxidil Other allergy 01/20/2018 minoxidil Other allergy 06/26/2018 MINOXIDIL Other allergy 09/21/2018 MINOXIDIL Admission Admission Data Admission Date: 09/18/2018 Admission Time: 0:12 Room #: D.2111 Procedure Procedure Types Cath Procedure Peripheral Cath Diagnostic Procedure Miscellaneous Procedure Description Procedure Date Procedure Date: 09/21/2018 Procedure Start Time: 14:10 Procedure Staff Name Function Ibis Dunlap MD Performing Physician Odette Dooley RT Monitor Demetrice Butt Scrub Radha Saenz RN Nurse Procedure Data Cath Procedure Fluoroscopy Diagnostic fluoroscopy Total fluoroscopy Time: 0 time: 0 min min Diagnostic fluoroscopy Total fluoroscopy dose: 193 dose: 193 mGy mGy Contrast Material Contrast Material Type Amount (ml) Isovue 300 60 Procedure Medications Medication Administration Route Dosage Heparin Flush Bag added to field 2 bags (1000units/500ml NS) Lidocaine 1% added to field 20 Versed I.V. 1 mg Fentanyl I.V. 50 mcg Heparin Bolus I.V. 3000 units Heparin Bolus I.V. 3000 units Versed I.V. 1 mg Fentanyl I.V. 50 mcg Hemodynamics Rest Heart Rate: 89 (bpm) Snapshots Pre Cath Intra NCS Post Cath Vital Signs Time Heart Resp SPO2 etCO2 NIBP (mmHg) Rhythm Pain Sedation Rate (ipm) (%) (mmHg) Status Level (bpm) 13:51:08 88 9 3.7 111/66(84) NSR 0 (11) 10(A) , No pain 13:55:26 87 12 1.5 119/68(85) NSR 0 (11) 10(A) , No pain 13:59:40 86 18 6 113/68(79) NSR 0 (11) 10(A) , No pain 14:04:00 88 10 3.7 110/66(89) NSR 0 (11) 10(A) , No pain 14:08:20 87 10 100 3 123/65(98) NSR 0 (11) 9(A) , No pain 14:12:43 89 19 98 1.5 131/68(87) NSR 0 (11) 9(A) , No pain 14:17:03 86 20 97 0 111/71(100) NSR 0 (11) 8(A) , No pain 14:21:15 85 10 97 0 127/73(93) NSR 0 (11) 8(A) , No pain 14:25:33 86 14 98 0 121/74(88) NSR 0 (11) 8(A) , No pain 14:29:49 86 11 98 0 120/75(103) NSR 0 (11) 8(A) , No pain 14:34:05 86 11 98 0 124/72(93) NSR 0 (11) 8(A) , No pain 14:38:23 86 13 99 0.7 121/73(90) NSR 0 (11) 8(A) , No pain 14:42:41 84 9 100 0 124/71(90) NSR 0 (11) 8(A) , No pain 14:47:01 84 15 99 0.7 125/65(96) NSR 0 (11) 8(A) , No pain 14:51:27 88 7 100 16.5 96/62(84) NSR 0 (11) 8(A) , No pain 14:56:20 84 9 97 0 120/74(98) NSR 0 (11) 10(A) , No pain 15:00:36 85 11 97 0 120/73(89) NSR 0 (11) 10(A) , No pain 15:04:57 85 9 96 0 116/67(95) NSR 0 (11) 10(A) , No pain 15:09:12 90 9 99 12.8 110/72(89) NSR 0 (11) 10(A) , No pain 15:14:11 88 6 30.1 Measuring NSR 0 (11) 10(A) , No pain 15:14:28 88 11 85 31.6 141/77(92) NSR 0 (11) 10(A) , No pain Medications Time Medication Route Dose Verified Delivered Reason Notes Effe ctiveness by by 14:06:15 Heparin Flush added 2 M J Long M J Long used for Bag to bags MD GOMEZ procedure (1000units/500ml field NS) 14:06:30 Lidocaine 1% added 20ml M J Long M J Long for local to vial MD GOMEZ anesthetic field 14:14:21 Versed I.V. 1 mg M J Long Radha for MD Saenz RN sedation 14:14:36 Fentanyl I.V. 50 M J Long Radha for mcg MD Saenz RN sedation 14:26:58 Heparin Bolus I.V. 3000 M J Long Radha Per units MD Dany LEVIN physician 14:48:30 Fentanyl I.V. 50 M J Long Radha for lucita Saenz RN sedation 14:49:23 Versed I.V. 1 mg M J Long Radha for MD Dany LEVIN sedation 14:50:21 Heparin Bolus I.V. 3000 M J Long Radha Per units MD Dany LEVIN physician Procedure Log Time Note 13:35:44 Odette Dooley RT (R) (CV) sent for patient. Start room use. 13:36:00 Time tracking: Regular hours (M-F 7:00 - 5:00) 13:36:11 Plan of Care:Hemodynamics will remain stable., Cardiac rhythm will remain stable., Comfort level will be maintained., Respiratory function will remain adequate., Patient/ family verbilizes understanding of procedure., Procedure tolerated without complication., Recovers from procedure without complications.. 13:36:17 Patient received from Med II to IR Alert and oriented. Tansferred to table in Supine position. 13:36:19 Correct patient and procedure confirmed by team. 13:36:21 Signed procedure consent form obtained from patient. 13:36:22 ECG and BP/O2 sat monitors applied to patient. 13:36:23 Full Disclosure recording started 13:36:27 - 13:36:30 H&P Date Dictated: 09/21/2018 Within 30 days and on chart.. 13:36:31 Pre-procedure instructions explained to patient. 13:36:32 Pre-op teaching completed and patient verbalized understanding. 13:36:34 Family in waiting room. 13:36:37 Patient NPO since Midnight. 13:37:58 Patient allergic to Other allergyMINOXIDIL 13:38:02 Is the patient allergic to Iodine/contrast media? No. 13:38:16 Is patient on blood thinner?Yes 13:38:18 ACC The patient was administered the following blood thiners within the last 24 hours: ACCAspirin 13:38:21 Patient diabetic? No. 13:38:23 - 13:38:23 ----Pre-sedation anethsthesia assessment.---- 13:38:27 Previous problem with sedation/anesthesia? No ? 13:38:28 Snore? Yes 13:38:30 Sleep apnea? No 13:38:32 Deviated septum? No 13:38:33 Opens mouth fully? Yes 13:38:34 Sticks out tongue? Yes 13:38:36 Airway obstruction? No ? 13:38:39 Dentures? No ? 13:38:48 IV patent on arrival in right forearm with 0.9% NaCl at [facility]. 13:38:52 Use device set IR Diagnostic 13:38:54 Bag Decanter (2002S) opened to sterile field. 13:38:55 Sterile Angiographic Pack opened to sterile field. 13:38:55 Tegaderm 4 x 4 (1626W) opened to sterile field. 13:49:52 Vital chart was started 13:49:54 Baseline sample Acquired. 14:06:15 Heparin Flush Bag (1000units/500ml NS) 2 bags added to field was administered by Ibis Dunlap MD; used for procedure; 14:06:30 Lidocaine 1% 20ml vial added to field was administered by Ibis Dunlap MD; for local anesthetic; 14:08:04 Left Arm was prepped with chlora-prep and draped in sterile fashion. 14:08:06 Alarms reviewed by R. N. 14:08:06 Sharps counted by scrub and verified by R.N. 14:08:22 Physician arrived 14:08:23 --------ALL STOP TIME OUT------ 14:08:25 Final Timeout: patient, procedure, and site verified with staff and physician. All members of the team are in agreement. 14:08:28 Left Arm site verified by team. 14:08:55 Fire Safety Assessment: A--An alcohol-based skin anteseptic being used preoperatively., C--Open oxygen or nitrous oxide is being used. 14:08:59 Sedation plan: IV Moderate Sedation Medication:Versed, Fentanyl 14:10:29 Procedure started. 14:10:35 Local anesthetic to left arm with Lidocaine 2% by Ibis Dunlap MD.INITIAL ACCESS ONLY 14:14:21 Versed 1 mg I.V. was administered by Radha Saenz RN; for sedation; 14:14:25 SHEATH 6FR [place] (YXL113) opened to sterile field. 14:14:25 Micropuncture VSI 4FR kit opened to sterile field. 14:14:32 DOC .035 wire (C14607) opened to sterile field. 14:14:36 Fentanyl 50 mcg I.V. was administered by Radha Saenz RN; for sedation ; 14:16:06 GLIDE CATHETER 5FR ANGLED 65cm (CG507) opened to sterile field. 14:25:47 PEDRAZA 260 wire ([id number]) opened to sterile field. 14:25:57 INFLATOR BasixTOUCH (YU3898) opened to sterile field. 14:26:58 Heparin Bolus 3000 units I.V. was administered by Radha Saenz RN; Per physician; 14:37:07 Inflate balloon Inflation number: 1 A Evercross 8 x 4 x 135 Balloon ([id number]) was prepped and advanced across the Undefined1, then inflated to 12 LYDIA for 0:01 (min:sec). 14:46:35 AMPLATZ Super stiff 3mm J 260cm wire ([id number]) opened to sterile field. 14:48:30 Fentanyl 50 mcg I.V. was administered by Radha Saenz RN; for sedation ; 14:48:30 Inflate balloon Inflation number: 2 A Evercross 10 x 40 x 135 Balloon ([id number]) was prepped and advanced across the Undefined1, then inflated to 7 LYDIA for 0:00 (min:sec). 14:49:23 Versed 1 mg I.V. was administered by Radha Saenz RN; for sedation; 14:50:21 Heparin Bolus 3000 units I.V. was administered by Radha Saenz RN; Per physician; 14:53:30 SUTURE ETHILON 2-0 BLK MONO FS opened to sterile field. 14:54:13 Procedure ended.(Physican Out) 14:54:26 Contrast amount:Isovue 300 60ml. 14:54:39 Fluoroscopy time 00.00 minutes. 14:54:44 Flurop Dose total: 193 14:54:44 Fluoroscopy dose: 193 mGy 14:54:46 Sharps counted by scrub and verified by R.N. 14:56:40 Insertion/operative site no bleeding no hematoma. 14:56:45 Post-op/insertion site Right Fistula dressed using a 4 x 4 and Tegaderm . 14:56:52 Post procedure instruction explained to patient.Patient verbalizes understanding. 14:56:53 Procedure and supply charges have been captured, reviewed, submitted an d are correct. 15:01:39 Post left arm:stable 15:15:13 Report given to [facility]. 15:15:35 Patient transfered to [facility] with Bed. 15:16:35 Vital chart was stopped Intervention Summary Intervention Notes Time ActionType Lesion and Equipment Used Action# Pressure Duration Attributes 14:37:07 Inflate Undefined1 Evercross 8 x 4 1 12 00:01 balloon x 135 Balloon ([id number]) 14:48:30 Inflate Undefined1 Evercross 10 x 2 7 00:00 balloon 40 x 135 Balloon ([id number]) Device Usage Item Name Manufacture Quantity Catalog Number Hospital Part Current M inimal Lot# / Charge Number Stock Stock Serial# Code Bag Lucas Microtek 1 [id number] 57580 149073 5 () Medical Inc. Sterile Cardinal 1 [id number] 426956 084163 5 Angiographic Health Pack Tegaderm 4 x 4 3M 1 1626W 668000 190083 798646 5 (1626W) SHEATH 6FR Terumo 1 ORV415 831439 834399 182704 4 0 [place] (TKU275) Micropuncture VSI VASCULAR 1 7266V 630389 424572 5 VSI 4FR kit SOLUTIONS DOC .035 wire Cook Medical 1 G43181 657955 620203 5 (T98412) GLIDE CATHETER Terumo 1 CG507 607752 795659 5 5FR ANGLED 65cm (CG507) PEDRAZA 260 wire Cook [employer] 1 L87891 141792 72185 061840 5 (D07989) INFLATOR Merit 1 FA8421 621425 879682 191985 5 BasixTOVanu Medical (ZT6518) Evercross 8 x 4 Medtronic 1 [id number] 128079 538190 636557 5 C640288 x 135 Balloon ([id number]) AMPLATZ Super [place] 1 [id number] 354588 446671 5 stiff 3mm J Scientific 260cm wire ([id number]) Evercross 10 x Medtronic 1 [id number] 599906 461786 376224 5 40 x 135 Balloon ([id number]) SUTURE ETHILON Ethicon 1 664H 269205 992948 5 2-0 BLK MONO FS Signature Audit [place] Stage Time Signature Unsigned Intra-Procedure 09/21/2018 Odette 3:16:30 PM Shuffield RT (R) (CV) Signatures Monitor : Odette Signature : Shuffield RT Date : Time : [facility] [address] [place] [address]
--- NOTE | 2018-09-17 22:00 | NUR ---
PT PRESENTS TO ED C/O SOB THAT HAS INCREASED. PT IS A DIALYSIS PT AND HAS NOT HAD DIALYSIS IN 5 DAYS. PT WAKES TO VERBAL STIMULI. PT ON 3L VIA NC ON ARRIVAL, O2 SAT 98%.
[2018-09-17 22:50] LABS: BASOPHILS 0 % (0-2); EOSINOPHILS 0.2 % (0-7); HEMATOCRIT 26.5 % (42.0-54.0); HEMOGLOBIN 8.5 g/dL (13.5-17.5); IMMATURE GRANULOCYTES 0.2 % (0-5); LYMPHOCYTES 16.4 % (15-50); MCH 29.1 pg (26.0-34.0); MCHC 32.1 g/dL (31.0-37.0); MCV 90.8 fL (80.0-100.0); MEAN PLATELET VOLUME 9.4 fL (7.4-10.4); MONOCYTES 7.7 % (2-11); NEUTROPHILS 75.5 % (40-80); RBC 2.92 10x6/uL (4.20-6.10); RDW 19.5 % (11.5-14.5); WBC 6.1 10x3/uL (4.8-10.8)
[2018-09-17 23:00] VITALS: BP 154/127
--- NOTE | 2018-09-17 23:05 | NUR ---
PT SLEEPING ON BED. BILAT RISE AND FALL OF PT CHEST NOTED.
[2018-09-17 23:07] LABS: PLATELET COUNT 113 10x3/uL (130-400)
[2018-09-17 23:17] LABS: BILIRUBIN - TOTAL 0.62 mg/dL (0.2-1.3); CALCIUM 7.5 mg/dL (8.5-10.1); CARBON DIOXIDE 12.8 mmol/L (21.0-32.0); CREATININE - SERUM 16.7 mg/dL (0.6-1.3); MAGNESIUM - SERUM 2.8 mg/dL (1.8-2.4); PROTEIN - SERUM 8.7 g/dL (6.4-8.2)
[2018-09-17 23:26] LABS: ANION GAP 29.1 mmol/L (8-16); POTASSIUM - SERUM 7.9 mmol/L (3.5-5.1); TROPONIN-I 0.149 ng/mL (0.000-0.060)
[2018-09-18] VITALS (10 sets, daily range): BP systolic 147–227; BP diastolic 90–143; Ht 177.8 cm; Wt 80.6 kg
--- NOTE | 2018-09-18 00:10 | NUR ---
PT UPDATED ON PLAN OF CARE. NO S/S OF ACUTE DISTRESS NOTED AT THIS TIME.
--- NOTE | 2018-09-18 01:00 | NUR ---
ORDER FOR LASIX 100MG AND DEXTROSE 50ML INPUT INCORRECTLY, VERBAL ORDER GIVEN TO ADMINISTER AT THIS TIME AND NOT AT 2345 TONIGHT.
--- NOTE | 2018-09-18 01:30 | NUR ---
REPORT CALLED TO ICU, RN ASKED TO TRANSPORT PT IN 30 MINUTES.
--- NOTE | 2018-09-18 02:18 | NUR ---
PT ADMIT VIA ER NURSING STAFF. PT CONNECTED TO ALL ICU MONITORS, TIGHT PARAMETERS SET. VITALS: HR 98, NSR, ELEVATED ST ELVATION NOTED ON MONITOR. BP 209/121, RR 12, O2 SAT 94%, TEMP 97.[address] HIGGINS NOTIFIED OF PT'S ELEVATED BP PER ER STAFF AND GAVE NO NEW ORDERS. HE IS AWARE OF PT CONDITION AND STATES THAT HE WILL HAVE DIALYSIS IN THE AM PER ER NURSE. HE IS ABLE TO ANSWER QUESTIONS AND FOLLOW COMMANDS, HE IS CONFUSED TO TIME AND SITUATION, REORIENTED. PERRLA, 3 MM, BRISK REACTION TO LIGHT. PT HAS A GENERALIZED TWITCHING MOTION AND HE STATED THAT HE LAST DID COCAINE YESTERDAY (09/17/18). S1S2 AUDIBLE, CRACKLES HEARD BILAT THROUGHOUT ALL LOBES. LEFT ARM RESERVE SIGNS POSTED ON HOB AND ON DOOR. LEFT FOREARM FISTUAL NOTED WITH THRILL AND BRUIT. RIGHT FORARM 18G PIV INFUSING CALCIUM GLUCONATE @ 45 ML/HR. ABD SCARS SEEN, PT'S ABD ROUND AND SOFT, BS ACTIVE X4. PT DENIES NEED TO VOID. 100 MG LASIX GIVEN IN ER. PARTIAL BED BATH AND LINEN CHANGE PROVIDED. SMALL TRACE OF BM, LIGHT BROWN. RADIAL AND PEDAL PULSES PALP. NO SKIN BREAKDOWN NOTED ON BUTTOCKS. LOTION APPLIED TO LOWER EXT. NON-SKID SOCKS ON, BED ALARM ON, CALL LIGHT IN REACH. HE FALLS ASLEEP FREQ AND HAS GARBLED SPEECH AT TIMES. HE DENIES ANY NEEDS AT THIS TIME. HE DENIES ANY PAIN OR DISCOMFORT AT THIS TIME. CALL LIGHT IN REACH, BED IN LOWEST POSITION. WILL CONT WITH POC.
--- NOTE | 2018-09-18 02:30 | NUR ---
PT STATES THAT HIS DAUGHTER IS HIS EMERGENCY CONTACT, BUT HE IS UNABLE TO PROVIDE HER PHONE NUMBER AT THIS TIME.
--- NOTE | 2018-09-18 03:05 | NUR ---
ER NURSE BROUGHT PT'S BELONGINGS. PT'S BELONGINGS SET ON NIGHT STAND. PT RESTING AT THIS TIME. BP REMAINS ELEVATED.
--- NOTE | 2018-09-18 05:00 | NUR ---
PT RESTING PEACEFULLY WITH NO SIGNS OF PAIN OR DISCOMFORT. BP REAMINS ELEVATED. WILL CONT WITH POC.
--- NOTE | 2018-09-18 05:00 | NUR ---
PT RESTING PEACEFULLY WITH NO SIGNS OF PAIN OR DISCOMFORT. BP REMAINS ELEVATED AT THIS TIME. WILL CONT TO MONITOR CLOSELY.
[2018-09-18 05:50] LABS: BASOPHILS 0.1 % (0-2); EOSINOPHILS 0.4 % (0-7); HEMATOCRIT 25.4 % (42.0-54.0); HEMOGLOBIN 8.3 g/dL (13.5-17.5); IMMATURE GRANULOCYTES 0.4 % (0-5); LYMPHOCYTES 16.5 % (15-50); MCH 29.6 pg (26.0-34.0); MCHC 32.7 g/dL (31.0-37.0); MCV 90.7 fL (80.0-100.0); MEAN PLATELET VOLUME 9.9 fL (7.4-10.4); MONOCYTES 9.1 % (2-11); NEUTROPHILS 73.5 % (40-80); PLATELET COUNT 119 10x3/uL (130-400); RDW 19.5 % (11.5-14.5); WBC 7.3 10x3/uL (4.8-10.8)
[2018-09-18 06:24] LABS: ALBUMIN 2.9 g/dL (3.4-5.0); ANION GAP 28.2 mmol/L (8-16); BILIRUBIN - TOTAL 0.57 mg/dL (0.2-1.3); CALCIUM 7.7 mg/dL (8.5-10.1); CARBON DIOXIDE 12.9 mmol/L (21.0-32.0); CREATININE - SERUM 16.8 mg/dL (0.6-1.3); PROTEIN - SERUM 8.4 g/dL (6.4-8.2)
[2018-09-18 07:03] LABS: POTASSIUM - SERUM 7.1 mmol/L (3.5-5.1)
--- NOTE | 2018-09-18 14:58 | NUR ---
0700 RECEIVED REPORT ON PATIENT ASSESSMENT COMPLETE
--- NOTE | 2018-09-18 14:59 | NUR ---
0900 REFUSED BREAKFAST VERY SLEEPY
--- NOTE | 2018-09-18 15:00 | NUR ---
1100 REMAINS IN AND OUT OF SLEEP REFUSES TO TURN JUST WANTS TO SLEEP
--- NOTE | 2018-09-18 15:01 | NUR ---
1300 LUNCH TRAY SERVED ATE ABOUT 70% GOES ON BACK TO SLEEP DR HIGGINS ROUNDED ON PATIENT
--- NOTE | 2018-09-18 15:02 | NUR ---
1500 NOTIFIED HODA LUZ AT RENALS OFFICE INFORMED HER THAT I COULD NOT TAKE PATIENT TO DIALYSIS UNLESS I HAD A TRANSFER ORDER TO FLOOR PATIENT BEGAN HAVING CHEST PAIN, MIDSTERNAL 02/21 12 LEAD EKG DONE. HODA RETURNED CALL AND WAS INFORMED OF CHEST PAIN. SHE STATED SHE WILL MAKE MD AWARE OF CHEST PAIN AND WILL CALL BACK WITH ANY ORDERS.
--- NOTE | 2018-09-18 19:45 | NUR ---
PT WAS IN ICU, THEN WENT TO DIALYSIS, I NOW RECEIVED PT FROM DIALYSIS VIA BED, DENIES ANY NEEDS AT THIS TIME, BED IS LOW, SRX2, CALL LIGHT IN REACH, WILL CONTINUE PLAN OF CARE
[2018-09-19] VITALS: BP 212/110
--- NOTE | 2018-09-19 00:59 | NUR ---
BP-212/110. PAGED CERAMIC SAW TENDER. WAITING RECOVERY COLLECTOR BACK
--- NOTE | 2018-09-19 01:33 | NUR ---
SPOKE WITH HODA WAS TOLD TO REORDER BP MEDS
[2018-09-19 04:00] VITALS: BP 155/93
--- NOTE | 2018-09-19 04:54 | NUR ---
PT IS SLEEPING, NO DISTRESS NOTICED AT THIS TIME, BED IS LOW, SRX2, BED ALARM IS ON, CALL LIGHT IN REACH, WILL CONTINUE PLAN OF CARE
[2018-09-19 08:28] LABS: BASOPHILS 0 % (0-2); EOSINOPHILS 0.6 % (0-7); HEMATOCRIT 26.9 % (42.0-54.0); HEMOGLOBIN 8.7 g/dL (13.5-17.5); IMMATURE GRANULOCYTES 0.2 % (0-5); LYMPHOCYTES 11.7 % (15-50); MCH 28.6 pg (26.0-34.0); MCHC 32.3 g/dL (31.0-37.0); MEAN PLATELET VOLUME 9.4 fL (7.4-10.4); NEUTROPHILS 82.5 % (40-80); PLATELET COUNT 142 10x3/uL (130-400); RBC 3.04 10x6/uL (4.20-6.10); RDW 18.9 % (11.5-14.5); WBC 6.6 10x3/uL (4.8-10.8)
[2018-09-19 08:39] LABS: ANION GAP 24.6 mmol/L (8-16); CALCIUM 7.1 mg/dL (8.5-10.1); CREATININE - SERUM 12.8 mg/dL (0.6-1.3); POTASSIUM - SERUM 5.6 mmol/L (3.5-5.1)
[2018-09-19 08:41] LABS: MCV 88.5 fL (80.0-100.0)
[2018-09-19 08:52] VITALS: BP 155/97
[2018-09-19 11:43] VITALS: BP 114/59
[2018-09-19 16:08] VITALS: BP 145/74
--- NOTE | 2018-09-19 17:00 | NUR ---
LETHARGIC. AROUSES TO STIMULI. SITTING UP IN BED. BED ALARM ON. USES URINAL. NO TELEMETRY AVAILABLE. DENIES ANY NEEDS. CONTINUE PLAN OF CARE AND SAFETY PRECAUTIONS.
--- NOTE | 2018-09-19 17:56 | MORECARE ---
CASE MANAGEMENT DISCHARGE SUMMARY PATIENT: ODETTE OH UNIT: [id number] ADM DATE: 09/18/18 AGE: 57 : 64 SEX: M ROOM/BED: D.2111 AUTHOR: ETHAN MAHONEY PHYSICIAN: REFERRING PHYSICIAN: REGINA HIGGINS MD DATE OF SERVICE: 09/19/18 Discharge Plan Patient Name: ODETTE OH [facility] [facility] 1960 Planned Disposition: Nursing Facility CAIO Cert Anticipated Discharge Date: Discharge Date: Expected LOS: Initial Reviewer: [email or web address] Initial Review Date: 09/19/2018 Generated: 09/19/18 6:56 pm Coverage Notice Reviewer: [email or web address] - Jeff Christopher Notice Issued Date-Time: 09/19/2018 14:45 Notice Type: Patient Choice Letter Notice Delivered To: Patient 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 Patient Name: ODETTE OH Page [phone] at 1756 All edits/amendments must be made on the electronic document DICTATION DATE: 09/19/181754 TURF MANAGER: [facility] 09/19/181754 RPT#: [id number] DC DATE: STATUS: ADM IN [place] [address] [place] [address] END OF REPORT
--- NOTE | 2018-09-19 18:04 | MORECARE ---
CASE MANAGEMENT DISCHARGE SUMMARY PATIENT: ODETTE OH UNIT: [id number] ADM DATE: 09/18/18 AGE: 57 : 64 SEX: M ROOM/BED: D.2111 AUTHOR: MARU,DOC PHYSICIAN: REFERRING PHYSICIAN: REGINA HIGGINS MD DATE OF SERVICE: 09/19/18 Discharge Plan Patient Name: ODETTE OH [facility] [facility] 1960 Planned Disposition: Nursing Facility CAIO Cert Anticipated Discharge Date: Discharge Date: Expected LOS: Initial Reviewer: [email or web address] Initial Review Date: 09/19/2018 Generated: 09/19/18 7:04 pm DCPIA - Discharge Planning Initial Assessment Updated by VADIM: Jeff Christopher on 09/19/18 6:00 pm * Is the patient Alert and Oriented? Yes * How many steps to enter\exit or inside your home? NONE * PCP DR MCKEON IN [place] * [facility] [place] * Preadmission Environment Home Alone * ADLs Independent * Equipment Cane * Other Equipment NO MEDICAL EQUIPMENT PROVIDER PREFERENCE * List name and contact numbers for known caregivers / representatives who currently or will assist patient after discharge: ROMA OH DTR, JOCELYN GILMORE, MIRACLE LUGO, * Verbal permission to speak to the caregivers and representatives has been obtained from the patient. Yes * Community resources currently utilized Other * Please name any agencies selected above. OUTPATIENT DIALYSIS IN [facility], PATIENT CANNOT REMEMBER THE DAYS AND TIME OF SCHEDULED TREATMENT * Additional services required to return to the preadmission environment? Yes * Can the patient safely return to the preadmission environment? No * Has this patient been hospitalized within the prior 30 days at any hospital? 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 Last DP export: 09/19/18 4:56 pm Patient Name: ODETTE OH Page [phone] at 1804 All edits/amendments must be made on the electronic document DICTATION DATE: 09/19/181803 [facility] [employer] REP: [facility] 09/19/181803 RPT#: [id number] DC DATE: STATUS: ADM IN [facility] [address] [place] [address] END OF REPORT
--- NOTE | 2018-09-19 18:18 | MORECARE ---
CASE MANAGEMENT DISCHARGE SUMMARY PATIENT: ODETTE OH UNIT: [id number] ADM DATE: 09/18/18 AGE: 57 : 64 SEX: M ROOM/BED: D.1830 AUTHOR: MARU,DOC PHYSICIAN: REFERRING PHYSICIAN: REGINA HIGGINS MD DATE OF SERVICE: 09/19/18 Discharge Plan Patient Name: ODETTE OH [facility] 1960 Planned Disposition: Nursing Facility CAIO Cert Anticipated Discharge Date: Discharge Date: Expected LOS: Initial Reviewer: [id number] Initial Review Date: 09/19/2018 Generated: 09/19/18 7:18 pm Comments DCP- Discharge Planning Updated by [id number]: Jeff Christopher on 09/19/18 5:[address] Patient Name: ODETTE OH Admission Status: ER Accout number: [id number] Admission Date: 09-18-2018 : 1960 Admission Diagnosis: Attending: REGINA HIGGINS Current LOS: 1 Anticipated DC Date: Planned Disposition: Nursing Facility CAIO Cert Primary Insurance: MEDICAID [place] PLANNED EXTERNAL PROVIDER: TO BE DETERMINED, CABIN OUTFITTER CARE MEDICAID BED Discharge Planning Comments: CM RECEIVED ORDER TO ASSIST WITH HALFWAY PLACEMENT. CM MET WITH PT IN ROOM TO DISCUSS DISCHARGE PLANNING AND NEEDS. PT REPORTS LIVING AT HOME INDEPENDENTLY; PT EITHER COULD NOT OR WOUND NOT TELL CM WHERE HE HAS BEEN LIVING. PT REPORTS HE WAS PUT IN A HALFWAY IN [facility] FROM THE OTHER HOSPITAL AN D IT WAS 2 1/2 HOURS AWAY FROM HOME, HE COULD NOT SEE HIS FAMILY AND THAT "JUST WON'T WORK." PT REPORTS HE WAS THERE FOR ONE MONTH AND LEFT "THE OTHER DAY." PT REPORTS "I CAME HOME". WHEN PRESSED FOR WHERE HE HAS BEEN LIVING, PT STILL WOULD NOT TELL CM WHERE HE HAS BEEN LIVING. PT DID INFORM CM HE HAS NOT BEEN LIVING WITH HIS DAUGHTER ROMA. PT WOULD NOT OR COULD NOT RECALL WHO PICKED HIM UP FROM THE HALFWAY STATING "ALL I KNOW IF I CAME HOME." . PT HAS A CANE WITH NO MEDICAL EQUIPMENT PROVIDER PREFERENCE. PT REPORTS THEY HAD HIM IN DIALYSIS IN [facility] AND THE HALFWAY CALLED [facility] TO GET IT CHANGED. PT DOES NOT KNOW IF HIS OUTPATIENT DIALYSIS WAS CHANGED. CM DISCUSSED ORDER FOR HALFWAY PLACEMENT. PT REPORTS HE WANTS A HALFWAY CLOSE TO [place] OR [place]. CM ASKED PT WHY HE WASN'T PLACED IN A NUSING HOME CLOSER TO [place] TO START WITH. PT INIITALLY STATES HE DID NOT KNOW, BUT WHEN PRESSED, PT STATES THAT "NO ONE WOULD TAKE ME". CM EXPLAINED THAT DIALYSIS UNITS IN [place] AND [facility] AREA MAY NOT ACCEPT PT EITHER. PT REFUSES TO GO BACK TO [facility] OR ANYWHERE "FAR AWAY FROM HOME". CM EXPLAINED THAT CM WILL NEED TO FIND ACCEPTING HALFWAY AND DILAYSIS UNIT AND IF THAT WAS RECENTLY TRIED WITH NO SUCCESS, WITH [facility] BEING THE CLOSEST, THEN IT IS DOUBTFUL THAT CM WILL BE ABLE TO FIND ANYTHING ELSE CLOSER. CM EXPLAINED THAT NURSING HOMES AND LOCAL DIALYSIS UNIT MAY NOT ACCEPT DUE TO PREVIOUS NON COMPLIANCE. PT REPORTS HE HAS ALWAYS WENT TO DIALYSIS LIKE HE IS SUPPOSED TO. PT INFORMED CM THAT HE WILL GO TO A HALFWAY IF IT IS IN THE [place] OR [place] AREA ONLY. PT STATES IF NOT, HE WILL GO HOME AND HAS "PLENTY OF FAMILY TO STAY WITH IN [place]." CM DISCUSSED HAVING PT SIGN CONSENT FOR CM TO ATTEMPT TO LOCATE THE CLOSEST NURSING FACILITY THAT MAY ACCEPT PT, PT AGREED AND SIGNED THE CONSENT. PT AGAIN STATES THAT HE IS NOT GOING TO A HALFWAY UNLESS IT IS CLOSE TO HIS HOME IN [place]. CM WILL DISCUSS WITH PATIENT PATHWAYS COORDINATOR CHIRAG MILES AND SEND REFERRALS TO LOCAL NURSING FACILITIES ([facility] AND [facility]) TO ATTEMPT PLACEMENT. Manager Risk: Jeff Christopher DCPIA - Discharge Planning Initial Assessment Updated by [id number]: Jeff Christopher on 09/19/18 6:00 pm * Is the patient Alert and Oriented? Yes * How many steps to enter\\exit or inside your home? NONE * PCP DR MCKEON IN [place] * [facility] IN [place] * Preadmission Environment Home Alone * ADLs Independent * Equipment Cane * Other Equipment NO MEDICAL EQUIPMENT PROVIDER PREFERENCE * List name and contact numbers for known caregivers / representatives who currently or will assist patient after discharge: ROMA OH DTR, JOCELYN GILMORE, MIRACLE LUGO, * Verbal permission to speak to the caregivers and representatives has been obtained from the patient. Yes * Community resources currently utilized Other * Please name any agencies selected above. OUTPATIENT DIALYSIS IN [facility], PATIENT CANNOT REMEMBER THE DAYS AND TIME OF SCHEDULED TREATMENT * Additional services required to return to the preadmission environment? Yes * Can the patient safely return to the preadmission environment? No * Has this patient been hospitalized within the prior 30 days at any hospital? No Coverage Notice Reviewer: [id number] Clovis Christopher Notice Issued Date-Time: 09/19/2018 14:45 Notice Type: Patient Choice Letter Notice Delivered To: Patient Relationship to Patient: Human Resources Talent Manager Name: Delivery Method: HAND - Hand Delivered Arlette Days: Prior Verbal Notification: Recipient Understood Notice: Yes Recipient Signature: Yes Med Rec Note Co-signed by Attending: Coverage Notice Comment: ANY NURSING FACILITY IN [facility] THAT WILL ACCEPT PT. Last DP export: 09/19/18 5:04 pm Patient Name: ODETTE OH Page [id number] at 1818 All edits/amendments must be made on the electronic document DICTATION DATE: 09/19/181816 TOOL MAKER APPRENTICE: LUH 09/19/181816 RPT#: [id number] DC DATE: STATUS: ADM IN [facility] [address] [place] [address] END OF REPORT
[2018-09-19 20:00] VITALS: BP 153/76
--- NOTE | 2018-09-19 20:50 | NUR ---
RESUMING PT CARE, PT LAYING IN BED WITH EYES OPEN, HE STATES TO ME "I DO NOT WANT ANY MEDICATION TONIGHT". HE IS LETHARGIC BUT ALERT AND ORIENTED X3. CALL LIGHT IN REACH, WILL CONTINUE TO MONITOR.
--- NOTE | 2018-09-19 21:20 | NUR ---
I WENT TO ASSESS PT, HE REFUSED. HE STATES TO ME, "I JUST WANT TO REST". CALL LIGHT IS IN REACH, WILL CONTINUE TO MONITOR.
--- NOTE | 2018-09-19 21:42 | NUR ---
PT IS LAYING IN BED WITH EYES CLOSED, RESPIRATIONS EVEN AND UNLABORED. CALL LIGHT IN REACH, WILL CONTINUE TO MONITOR.
--- NOTE | 2018-09-19 23:27 | NUR ---
THE PATIENT APPEARED TO BE SLEEPING, BUT EASILY AWOKE, WHEN STAFF ENTERED HIS AREA. BED IS IN THE LOW POSITION WITH SIDERAILS X2 AND CALL LIGHT WITHIN REACH. THE PATIENT DEMONSTRATES APPROPRIATE USE OF A CALL LIGHT. THE PATIENT HAS NO QUESTIONS OR COCNERNS AT THIS TIME.
[2018-09-20] VITALS: BP 151/91
--- NOTE | 2018-09-20 03:45 | NUR ---
THE PATIENT APPEARS TO BE SLEEPING AND APPEARS COMFORTABLE. BED IS IN THE LOW POSITION WITH SIDERAILS X2 AND CALL LIGHT WITHIN REACH.
[2018-09-20 04:00] VITALS: BP 157/86
[2018-09-20 05:45] LABS: BASOPHILS 0.2 % (0-2); EOSINOPHILS 0.9 % (0-7); HEMATOCRIT 24.3 % (42.0-54.0); IMMATURE GRANULOCYTES 0.4 % (0-5); LYMPHOCYTES 19.4 % (15-50); MCH 30.8 pg (26.0-34.0); MCHC 32.9 g/dL (31.0-37.0); MEAN PLATELET VOLUME 10.2 fL (7.4-10.4); MONOCYTES 8.5 % (2-11); NEUTROPHILS 70.6 % (40-80); PLATELET COUNT 129 10x3/uL (130-400); RDW 19.6 % (11.5-14.5); WBC 5.7 10x3/uL (4.8-10.8)
[2018-09-20 05:46] LABS: MCV 93.5 fL (80.0-100.0)
[2018-09-20 05:49] LABS: ANION GAP 23.9 mmol/L (8-16); CARBON DIOXIDE 15.9 mmol/L (21.0-32.0); CREATININE - SERUM 13.4 mg/dL (0.6-1.3); PHOSPHOROUS 8.8 mg/dL (2.5-4.9); POTASSIUM - SERUM 4.8 mmol/L (3.5-5.1)
[2018-09-20 05:54] LABS: CALCIUM 6.4 mg/dL (8.5-10.1)
--- NOTE | 2018-09-20 06:11 | NUR ---
CRITICAL LAB REPORTED TO DR. METZGER. CALCIUM OF 6.4. NO NEW ORDERS.
--- NOTE | 2018-09-20 07:50 | MORECARE ---
CASE MANAGEMENT DISCHARGE SUMMARY PATIENT: ODETTE OH UNIT: [id number] ADM DATE: 09/18/18 AGE: 57 : 64 SEX: M ROOM/BED: D.6603 AUTHOR: MARU,DOC PHYSICIAN: REFERRING PHYSICIAN: REGINA HIGGINS MD DATE OF SERVICE: 09/20/18 Discharge Plan Patient Name: ODETTE OH [facility] 1960 Planned Disposition: Nursing Facility CAIO Cert Anticipated Discharge Date: Discharge Date: Expected LOS: Initial Reviewer: [id number] Initial Review Date: 09/19/2018 Generated: 09/20/18 8:50 am Comments DCP- Discharge Planning Updated by [email or web address]: Jeff Christopher on 09/19/18 5:[address] Patient Name: ODETTE OH Admission Status: ER Accout number: [id number] Admission Date: 09-18-2018 : 1960 Admission Diagnosis: Attending: REGINA HIGGINS Current LOS: 1 Anticipated DC Date: Planned Disposition: Nursing Facility CAIO Cert Primary Insurance: MEDICAID [place] PLANNED EXTERNAL PROVIDER: TO BE DETERMINED, VENEER PRODUCTION MACHINE OPERATOR CARE MEDICAID BED Discharge Planning Comments: CM RECEIVED ORDER TO ASSIST WITH CARE HOME PLACEMENT. CM MET WITH PT IN ROOM TO DISCUSS DISCHARGE PLANNING AND NEEDS. PT REPORTS LIVING AT HOME INDEPENDENTLY; PT EITHER COULD NOT OR WOUND NOT TELL CM WHERE HE HAS BEEN LIVING. PT REPORTS HE WAS PUT IN A CARE HOME IN [facility] FROM THE OTHER HOSPITAL AN D IT WAS 2 1/2 HOURS AWAY FROM HOME, HE COULD NOT SEE HIS FAMILY AND THAT "JUST WON'T WORK." PT REPORTS HE WAS THERE FOR ONE MONTH AND LEFT "THE OTHER DAY." PT REPORTS "I CAME HOME". WHEN PRESSED FOR WHERE HE HAS BEEN LIVING, PT STILL WOULD NOT TELL CM WHERE HE HAS BEEN LIVING. PT DID INFORM CM HE HAS NOT BEEN LIVING WITH HIS DAUGHTER ROMA. PT WOULD NOT OR COULD NOT RECALL WHO PICKED HIM UP FROM THE CARE HOME STATING "ALL I KNOW IF I CAME HOME." . PT HAS A CANE WITH NO MEDICAL EQUIPMENT PROVIDER PREFERENCE. PT REPORTS THEY HAD HIM IN DIALYSIS IN [facility] AND THE CARE HOME CALLED [facility] TO GET IT CHANGED. PT DOES NOT KNOW IF HIS OUTPATIENT DIALYSIS WAS CHANGED. CM DISCUSSED ORDER FOR CARE HOME PLACEMENT. PT REPORTS HE WANTS A CARE HOME CLOSE TO [place] OR [place]. CM ASKED PT WHY HE WASN'T PLACED IN A NUSING HOME CLOSER TO [place] TO START WITH. PT INIITALLY STATES HE DID NOT KNOW, BUT WHEN PRESSED, PT STATES THAT "NO ONE WOULD TAKE ME". CM EXPLAINED THAT DIALYSIS UNITS IN [place] AND [facility] AREA MAY NOT ACCEPT PT EITHER. PT REFUSES TO GO BACK TO [facility] OR ANYWHERE "FAR AWAY FROM HOME". CM EXPLAINED THAT CM WILL NEED TO FIND ACCEPTING CARE HOME AND DILAYSIS UNIT AND IF THAT WAS RECENTLY TRIED WITH NO SUCCESS, WITH [facility] BEING THE CLOSEST, THEN IT IS DOUBTFUL THAT CM WILL BE ABLE TO FIND ANYTHING ELSE CLOSER. CM EXPLAINED THAT NURSING HOMES AND LOCAL DIALYSIS UNIT MAY NOT ACCEPT DUE TO PREVIOUS NON COMPLIANCE. PT REPORTS HE HAS ALWAYS WENT TO DIALYSIS LIKE HE IS SUPPOSED TO. PT INFORMED CM THAT HE WILL GO TO A CARE HOME IF IT IS IN THE [place] OR [place] AREA ONLY. PT STATES IF NOT, HE WILL GO HOME AND HAS "PLENTY OF FAMILY TO STAY WITH IN [place]." CM DISCUSSED HAVING PT SIGN CONSENT FOR CM TO ATTEMPT TO LOCATE THE CLOSEST NURSING FACILITY THAT MAY ACCEPT PT, PT AGREED AND SIGNED THE CONSENT. PT AGAIN STATES THAT HE IS NOT GOING TO A CARE HOME UNLESS IT IS CLOSE TO HIS HOME IN [place]. CM WILL DISCUSS WITH PATIENT PATHWAYS COORDINATOR CHIRAG MILES AND SEND REFERRALS TO LOCAL NURSING FACILITIES ([facility] AND [facility]) TO ATTEMPT PLACEMENT. Python Web Developer: Jeff Christopher DCPIA - Discharge Planning Initial Assessment Updated by [id number]: Jeff Christopher on 09/19/18 6:00 pm * Is the patient Alert and Oriented? Yes * How many steps to enter\\exit or inside your home? NONE * PCP DR MCKEON IN [place] * Pharmacy [facility] IN [place] * Preadmission Environment Home Alone * ADLs Independent * Equipment Cane * Other Equipment NO MEDICAL EQUIPMENT PROVIDER PREFERENCE * List name and contact numbers for known caregivers / representatives who currently or will assist patient after discharge: ROMA OH DTR, JOCELYN GILMORE, MIRACLE LUGO, * Verbal permission to speak to the caregivers and representatives has been obtained from the patient. Yes * Community resources currently utilized Other * Please name any agencies selected above. OUTPATIENT DIALYSIS IN [facility], PATIENT CANNOT REMEMBER THE DAYS AND TIME OF SCHEDULED TREATMENT * Additional services required to return to the preadmission environment? Yes * Can the patient safely return to the preadmission environment? No * Has this patient been hospitalized within the prior 30 days at any hospital? No Coverage Notice Reviewer: [id number] Clovis Christopher Notice Issued Date-Time: 09/19/2018 14:45 Notice Type: Patient Choice Letter Notice Delivered To: Patient Relationship to Patient: High School Math Tutor Name: Delivery Method: HAND - Hand Delivered Arlette Days: Prior Verbal Notification: Recipient Understood Notice: Yes Recipient Signature: Yes Med Rec Note Co-signed by Attending: Coverage Notice Comment: ANY NURSING FACILITY IN [facility] THAT WILL ACCEPT PT. Last DP export: 09/19/18 5:18 pm Patient Name: ODETTE OH Page [id number] at 0750 All edits/amendments must be made on the electronic document DICTATION DATE: 09/20/18 075 SOLUTIONS CONSULTANT: LUH 09/20/18 0750 RPT#: [id number] DC DATE: STATUS: ADM IN [facility] [address] [place] [address] END OF REPORT
[2018-09-20 08:22] VITALS: BP 161/85
--- NOTE | 2018-09-20 10:16 | NUR ---
IN DIALYSIS AT THIS TIME. WILL CONT. PLAN OF CARE.
--- NOTE | 2018-09-20 10:27 | NUR ---
PT TAKEN TO DIALYSIS VIA BED.
[2018-09-20 13:13] LABS: % SATURATION 25 % (15-55); IRON 72 ug/dl (35-150); TOTAL IRON BIND CAPACITY 280 ug/dl (260-445); UNSAT IRON BIND CAPACITY 208 ug/dl (150-375)
--- NOTE | 2018-09-20 17:23 | MORECARE ---
CASE MANAGEMENT DISCHARGE SUMMARY PATIENT: ODETTE OH UNIT: [id number] ADM DATE: 09/18/18 AGE: 57 : 64 SEX: M ROOM/BED: D.2111 AUTHOR: MARU,DOC PHYSICIAN: REFERRING PHYSICIAN: REGINA HIGGINS MD DATE OF SERVICE: 09/20/18 Discharge Plan Patient Name: ODETTE OH Facility: [facility] [place] : 1960 Planned Disposition: Nursing Facility CAIO Cert Anticipated Discharge Date: Discharge Date: Expected LOS: Initial Reviewer: [id number] Initial Review Date: 09/19/2018 Generated: 09/20/18 6:23 pm Comments DCP- Discharge Planning Updated by [id number]: Jeff Christopher on 09/20/18 4:[address] Patient Name: ODETTE OH Encounter No: [id number] : 1960 Primary Insurance: MEDICAID [place] Anticipated DC Date: Planned Disposition: Nursing Facility CAIO Cert External Planned Provider: FIRST ACCEPTING PROVIDER FOR BROOM MACHINE OPERATOR MEDICAID BED DCP follow-up note: CM SPOKE TO CHIRAG OF [facility]. IN JULY 2018, WHILE AT [facility], PT WAS DECLINED AT [facility], [facility], [facility], [facility] (ENTIRE GROUP OF [facility] IN THE [facility]) MOBILE AND [facility] THEY DON'T ACCEPT DIALYSIS PATIENTS. [facility] WAS ABLE TO OBTAIN PLACEMENT AT [facility] IN [place], [place]. MEDICAID TRANSPORTATION IN [place] WILL NO LONGER TRANSPORT PT TO AND FROM DIALYSIS OF JUNE 2018. WHILE AT THE [facility], PT HAD EPISODES OF AGRESSION AND THREATS TOWARD STAFF AND OTHER RESIDENTS. PT HAD THE POLICE CALLED ON HIM DUE TO ALLEGATION OF THEFT FROM ANOTHER RESIDENT AND GOING OUTSIDE TO SMOKE, USING DOOR CODE HE WAS NOT SUPPOSED TO HAVE TO EXIT AND THREATENED STAFF WHEN INFORMED HE WAS NOT TO BE LEAVING THE BUILDING, HAVING THE DOOR CODE OR SMOKING. PT REFUSED STAFF ASSISTANCE IN DISCHARGE PLANNING. PT'S DAUGHTER WAS CONTACTED BY FACILITY ON 09-02 AND INFORMED FACILITY PT CANNOT RETURN TO HER HOME. PT CONTACTED HIS NEPHEW BIMAL, [address], [address], [facility], REPORTED THIS TO BE HIS DISCHARGE ADDRESS, LEFT FACILITY REFUSING TO ALLOW THE FACILITY TO ARRANGE OUTPATIENT DIALYSIS SERVICES REPORTING HE WILL DO IT HIMSELF. PT DID SIGN THE DISCHARGE DOCUMENTS BUT REFUSED TO HAVE THEM EXPLAINED TO HIM. PT CANNOT RETURN TO THE PENITENTIARY AND THE PENITENTIARY SUGGESTS THAT ADULT PROTECTIVE SERVICES BE CONTACTED. CM WILL CALL ADULT PROTECTIVE SERVICES WITH ALLEGATIONS OF SELF NEGLECT. CM WILL CONTINUE TO TRY TO WORK WITH PT AND CONTINUE TO ATTEMPT TO FIND PENITENTIARY PLACEMENT THAT PT WILL AGREE TO. CM WILL NOT BE ABLE TO PLACE PT IN THE [place] OR [facility] DIALYSIS UNITS WILL NOT ACCEPT PATIENT. Jeff Christopher, CASE MANAGEMENT DCP- Discharge Planning Updated by [id number]: Jeff Christopher on 09/19/18 5:[address] Patient Name: ODETTE OH Admission Status: ER Accout number: [id number] Admission Date: 09-18-2018 : 1960 Admission Diagnosis: Attending: REGINA HIGGINS Current LOS: 1 Anticipated DC Date: Planned Disposition: Nursing Facility [facility] Primary Insurance: MEDICAID [place] PLANNED EXTERNAL PROVIDER: TO BE DETERMINED, BROOM MACHINE OPERATOR CARE MEDICAID BED Discharge Planning Comments: CM RECEIVED ORDER TO ASSIST WITH PENITENTIARY PLACEMENT. CM MET WITH PT IN ROOM TO DISCUSS DISCHARGE PLANNING AND NEEDS. PT REPORTS LIVING AT HOME INDEPENDENTLY; PT EITHER COULD NOT OR WOUND NOT TELL CM WHERE HE HAS BEEN LIVING. PT REPORTS HE WAS PUT IN A PENITENTIARY IN [facility] FROM THE OTHER HOSPITAL AN D IT WAS 2 1/2 HOURS AWAY FROM HOME, HE COULD NOT SEE HIS FAMILY AND THAT "JUST WON'T WORK." PT REPORTS HE WAS THERE FOR ONE MONTH AND LEFT "THE OTHER DAY." PT REPORTS "I CAME HOME". WHEN PRESSED FOR WHERE HE HAS BEEN LIVING, PT STILL WOULD NOT TELL CM WHERE HE HAS BEEN LIVING. PT DID INFORM CM HE HAS NOT BEEN LIVING WITH HIS DAUGHTER TIA. PT WOULD NOT OR COULD NOT RECALL WHO PICKED HIM UP FROM THE PENITENTIARY STATING "ALL I KNOW IF I CAME HOME." . PT HAS A CANE WITH NO MEDICAL EQUIPMENT PROVIDER PREFERENCE. PT REPORTS THEY HAD HIM IN DIALYSIS IN [facility] AND THE PENITENTIARY CALLED [facility] TO GET IT CHANGED. PT DOES NOT KNOW IF HIS OUTPATIENT DIALYSIS WAS CHANGED. CM DISCUSSED ORDER FOR PENITENTIARY PLACEMENT. PT REPORTS HE WANTS A PENITENTIARY CLOSE TO [place] OR [place]. CM ASKED PT WHY HE WASN'T PLACED IN A NUSING HOME CLOSER TO [place] TO START WITH. PT INIITALLY STATES HE DID NOT KNOW, BUT WHEN PRESSED, PT STATES THAT "NO ONE WOULD TAKE ME". CM EXPLAINED THAT DIALYSIS UNITS IN [place] AND [facility] AREA MAY NOT ACCEPT PT EITHER. PT REFUSES TO GO BACK TO [facility] OR ANYWHERE "FAR AWAY FROM HOME". CM EXPLAINED THAT CM WILL NEED TO FIND ACCEPTING PENITENTIARY AND DILAYSIS UNIT AND IF THAT WAS RECENTLY TRIED WITH NO SUCCESS, WITH [facility] BEING THE CLOSEST, THEN IT IS DOUBTFUL THAT CM WILL BE ABLE TO FIND ANYTHING ELSE CLOSER. CM EXPLAINED THAT NURSING HOMES AND LOCAL DIALYSIS UNIT MAY NOT ACCEPT DUE TO PREVIOUS NON COMPLIANCE. PT REPORTS HE HAS ALWAYS WENT TO DIALYSIS LIKE HE IS SUPPOSED TO. PT INFORMED CM THAT HE WILL GO TO A PENITENTIARY IF IT IS IN THE [place] OR [place] AREA ONLY. PT STATES IF NOT, HE WILL GO HOME AND HAS "PLENTY OF FAMILY TO STAY WITH IN [place]." CM DISCUSSED HAVING PT SIGN CONSENT FOR CM TO ATTEMPT TO LOCATE THE CLOSEST NURSING FACILITY THAT MAY ACCEPT PT, PT AGREED AND SIGNED THE CONSENT. PT AGAIN STATES THAT HE IS NOT GOING TO A PENITENTIARY UNLESS IT IS CLOSE TO HIS HOME IN [place]. CM WILL DISCUSS WITH PATIENT PATHWAYS COORDINATOR CHIRAG MILES AND SEND REFERRALS TO LOCAL NURSING FACILITIES ([facility]) TO ATTEMPT PLACEMENT. Cartoon Artist: Jeff Christopher DCPIA - Discharge Planning Initial Assessment Updated by [id number]: Jeff Christopher on 09/19/18 6:00 pm * Is the patient Alert and Oriented? Yes * How many steps to enter\\exit or inside your home? NONE * PCP DR MCKEON IN [place] * Pharmacy [facility] IN [place] * Preadmission Environment Home Alone * ADLs Independent * Equipment Cane * Other Equipment NO MEDICAL EQUIPMENT PROVIDER PREFERENCE * List name and contact numbers for known caregivers / representatives who currently or will assist patient after discharge: ROMA OH DTR, JOCELYN GILMORE, MIRACLE LUGO, * Verbal permission to speak to the caregivers and representatives has been obtained from the patient. Yes * Community resources currently utilized Other * Please name any agencies selected above. OUTPATIENT DIALYSIS IN [place], PATIENT CANNOT REMEMBER THE DAYS AND TIME OF SCHEDULED TREATMENT * Additional services required to return to the preadmission environment? Yes * Can the patient safely return to the preadmission environment? No * Has this patient been hospitalized within the prior 30 days at any hospital? No Coverage Notice Reviewer: [id number] Clovis Christopher Notice Issued Date-Time: 09/19/2018 14:45 Notice Type: Patient Choice Letter Notice Delivered To: Patient Relationship to Patient: Press Operator Carbon Products Name: Delivery Method: HAND - Hand Delivered Arlette Days: Prior Verbal Notification: Recipient Understood Notice: Yes Recipient Signature: Yes Med Rec Note Co-signed by Attending: Coverage Notice Comment: ANY NURSING FACILITY IN [facility] THAT WILL ACCEPT PT. Last DP export: 09/20/18 6:50 am Patient Name: ODETTE OH Page [id number] at 1723 All edits/amendments must be made on the electronic document DICTATION DATE: 09/20/181721 OBSTETRICS AND GYNECOLOGY PROFESSOR: L[facility] 09/20/181721 RPT#: [id number] DC DATE: STATUS: ADM IN [facility] [address] [place] [address] END OF REPORT
[2018-09-20 17:24] VITALS: BP 166/76
--- NOTE | 2018-09-20 17:26 | NUR ---
Dialysis Coordinator: Notified by CM of patient admission from [place]. Patient previously at [facility]. Per MARKEL Porter of facility, patient was often verbally abusive, beligerant, disruptive. Patient started requesting to d/c from SNF and return home around 08/23, however, refused to provide contact information for family/friends who could assist in providing safe discharge disposition. 09/02 patient gave # of nephew, Zach, who stated patient could d/t from SNF to home with him @ [address], [address], [place], [place]. Family arrived 09/02 to p/u patient, patient was again, rude, disrespectful to/with staff, refused to d/w paint specialist meds/care etc, stating he didn't need to be told how to care for himself. No dialysis arrangements, home health, wound care, etc were established for this patient at discharge as patient stated he could do it his self he was not a kid. (per SNF report). Per conversation with charge nurse @ [facility], Dr. Ledezma will not accept this patient back into this unit, citing behavior, non-compliance, refusal to come for treatment, among other issues. Dr. Ledezma & partners cover: RITIKA Gillette, RITIKA Cordova, RITIKA Hilliards, RITIKA King, therefore, if denied by emergency medical service coordinator, he will not be able to be placed at any of these facilities. In July patient was placed in [facility] after denials and/or no ability to place at a number of local SNF: [facility], [place], [facility], [facility], [facility], [place]. (Also - [place] & [facility] d/t unable to accept HD patients.) It was also noted at that time that patient had been denied ability to use [facility] transportation in [facility] d/t behavior and/or 'no-shows' on mixing picker tender. NICKY HAAS.
--- NOTE | 2018-09-20 20:06 | NUR ---
RESUMING PT CARE. PT IS ALERT LAYING IN BED WATCHING TV WITH NO C/O VOICED AT THIS TIME. BED IN LOW POSITION WITH CALL LIGHT IN REACH. WILL CONTINUE TO MONITOR PT AND FOLLOW PLAN OF CARE.
[2018-09-20 20:10] VITALS: BP 195/84
[2018-09-21] VITALS (12 sets, daily range): BP systolic 100–156; BP diastolic 61–86
--- NOTE | 2018-09-21 04:25 | NUR ---
SALVAGE INSPECTOR AT BEDSIDE TO OBTAIN VITALS, CALL LIGHT IN REACH. WILL CONTINUE WITH PLAN OF CARE.
[2018-09-21 05:50] LABS: BASOPHILS 0 % (0-2); EOSINOPHILS 0.4 % (0-7); HEMATOCRIT 27.1 % (42.0-54.0); HEMOGLOBIN 8.9 g/dL (13.5-17.5); IMMATURE GRANULOCYTES 0.2 % (0-5); MCH 29.1 pg (26.0-34.0); MCHC 32.8 g/dL (31.0-37.0); MEAN PLATELET VOLUME 9.8 fL (7.4-10.4); MONOCYTES 8.2 % (2-11); NEUTROPHILS 70.2 % (40-80); PLATELET COUNT 122 10x3/uL (130-400); RBC 3.06 10x6/uL (4.20-6.10); RDW 18.6 % (11.5-14.5); WBC 5.3 10x3/uL (4.8-10.8)
[2018-09-21 06:07] LABS: MCV 88.6 fL (80.0-100.0)
[2018-09-21 06:22] LABS: POTASSIUM - SERUM 4.4 mmol/L (3.5-5.1)
[2018-09-21 06:51] LABS: ANION GAP 19.2 mmol/L (8-16); CARBON DIOXIDE 24.2 mmol/L (21.0-32.0); CREATININE - SERUM 9.5 mg/dL (0.6-1.3); PHOSPHOROUS 6.1 mg/dL (2.5-4.9)
[2018-09-21 06:52] LABS: CALCIUM 6.8 mg/dL (8.5-10.1)
[2018-09-21 08:37] LABS: APTT 36.9 SECONDS (22.8-39.4); INR 1.14 (0.85-1.17); PROTIME 14.1 SECONDS (11.6-15.0)
--- NOTE | 2018-09-21 08:41 | NUR ---
RACK LOADER AT BS. CALL LIGHT IN REACH. WILL CONT. PLAN OF CARE.
[2018-09-21 09:19] LABS: FOLATE (FOLIC ACID) - SERUM 5.9 ng/mL (>3.0); HEPATITIS C ANTIBODY >11.0 S/CO RAT (0.0-0.9)
--- NOTE | 2018-09-21 11:30 | MORECARE ---
CASE MANAGEMENT DISCHARGE SUMMARY PATIENT: ODETTE OH UNIT: [id number] ADM DATE: 09/18/18 AGE: 57 : 64 SEX: M ROOM/BED: D.2111 AUTHOR: MARU,DOC PHYSICIAN: REFERRING PHYSICIAN: REGINA HIGGINS MD DATE OF SERVICE: 09/21/18 Discharge Plan Patient Name: ODETTE OH Facility: [facility]:[place] : 1960 Planned Disposition: Home Anticipated Discharge Date: Discharge Date: Expected LOS: Initial Reviewer: [id number] Initial Review Date: 09/19/2018 Generated: 09/21/18 12:30 pm Comments DCP- Discharge Planning Updated by [id number]: Jeff Christopher on 09/20/18 4:[address] Patient Name: ODETTE OH Encounter No: [id number] : 1960 Primary Insurance: [place]ID [place] Anticipated DC Date: Planned Disposition: Nursing Facility CAIO Cert External Planned Provider: FIRST ACCEPTING PROVIDER FOR SKILLED NURSING MEDICAID BED DCP follow-up note: CM SPOKE TO CHIRAG OF [facility]. IN JULY 2018, WHILE AT [facility], PT WAS DECLINED AT [facility], [facility], [facility], [facility] (ENTIRE GROUP OF 37 HOMES IN THE [facility]) [facility] AND [facility] THEY DON'T ACCEPT DIALYSIS PATIENTS. [facility] WAS ABLE TO OBTAIN PLACEMENT AT [facility] IN [place], [place]. MEDICAID TRANSPORTATION IN [place] WILL NO LONGER TRANSPORT PT TO AND FROM DIALYSIS OF JUNE 2018. WHILE AT THE [facility], PT HAD EPISODES OF AGRESSION AND THREATS TOWARD STAFF AND OTHER RESIDENTS. PT HAD THE POLICE CALLED ON HIM DUE TO ALLEGATION OF THEFT FROM ANOTHER RESIDENT AND GOING OUTSIDE TO SMOKE, USING DOOR CODE HE WAS NOT SUPPOSED TO HAVE TO EXIT AND THREATENED STAFF WHEN INFORMED HE WAS NOT TO BE LEAVING THE BUILDING, HAVING THE DOOR CODE OR SMOKING. PT REFUSED STAFF ASSISTANCE IN DISCHARGE PLANNING. PT'S DAUGHTER WAS CONTACTED BY FACILITY ON 09-02 AND INFORMED FACILITY PT CANNOT RETURN TO HER HOME. PT CONTACTED HIS NEPHEW BIMAL, [address], [address], [facility] [employer], REPORTED THIS TO BE HIS DISCHARGE ADDRESS, LEFT FACILITY REFUSING TO ALLOW THE FACILITY TO ARRANGE OUTPATIENT DIALYSIS SERVICES REPORTING HE WILL DO IT HIMSELF. PT DID SIGN THE DISCHARGE DOCUMENTS BUT REFUSED TO HAVE THEM EXPLAINED TO HIM. PT CANNOT RETURN TO THE PENITENTIARY AND THE PENITENTIARY SUGGESTS THAT ADULT PROTECTIVE SERVICES BE CONTACTED. CM WILL CALL ADULT PROTECTIVE SERVICES WITH ALLEGATIONS OF SELF NEGLECT. CM WILL CONTINUE TO TRY TO WORK WITH PT AND CONTINUE TO ATTEMPT TO FIND PENITENTIARY PLACEMENT THAT PT WILL AGREE TO. CM WILL NOT BE ABLE TO PLACE PT IN THE [place] OR [facility] DIALYSIS UNITS WILL NOT ACCEPT PATIENT. Jeff Christopher, CASE MANAGEMENT DCP- Discharge Planning Updated by [id number]: Jeff Christopher on 09/19/18 5:[address] Patient Name: ODETTE OH Admission Status: ER Accout number: [id number] Admission Date: 09-18-2018 : 1960 Admission Diagnosis: Attending: REGINA HIGGINS Current LOS: 1 Anticipated DC Date: Planned Disposition: Nursing Facility [facility] Primary Insurance: MEDICAID [place] PLANNED EXTERNAL PROVIDER: TO BE DETERMINED, SKILLED NURSING CARE MEDICAID BED Discharge Planning Comments: CM RECEIVED ORDER TO ASSIST WITH PENITENTIARY PLACEMENT. CM MET WITH PT IN ROOM TO DISCUSS DISCHARGE PLANNING AND NEEDS. PT REPORTS LIVING AT HOME INDEPENDENTLY; PT EITHER COULD NOT OR WOUND NOT TELL CM WHERE HE HAS BEEN LIVING. PT REPORTS HE WAS PUT IN A PENITENTIARY IN [facility] FROM THE OTHER HOSPITAL AN D IT WAS 2 1/2 HOURS AWAY FROM HOME, HE COULD NOT SEE HIS FAMILY AND THAT "JUST WON'T WORK." PT REPORTS HE WAS THERE FOR ONE MONTH AND LEFT "THE OTHER DAY." PT REPORTS "I CAME HOME". WHEN PRESSED FOR WHERE HE HAS BEEN LIVING, PT STILL WOULD NOT TELL CM WHERE HE HAS BEEN LIVING. PT DID INFORM CM HE HAS NOT BEEN LIVING WITH HIS DAUGHTER TIA. PT WOULD NOT OR COULD NOT RECALL WHO PICKED HIM UP FROM THE PENITENTIARY STATING "ALL I KNOW IF I CAME HOME." . PT HAS A CANE WITH NO MEDICAL EQUIPMENT PROVIDER PREFERENCE. PT REPORTS THEY HAD HIM IN DIALYSIS IN [facility] AND THE PENITENTIARY CALLED [place] [facility] TO GET IT CHANGED. PT DOES NOT KNOW IF HIS OUTPATIENT DIALYSIS WAS CHANGED. CM DISCUSSED ORDER FOR PENITENTIARY PLACEMENT. PT REPORTS HE WANTS A PENITENTIARY CLOSE TO [place] OR [place]. CM ASKED PT WHY HE WASN'T PLACED IN A NUSING HOME CLOSER TO [place] TO START WITH. PT INIITALLY STATES HE DID NOT KNOW, BUT WHEN PRESSED, PT STATES THAT "NO ONE WOULD TAKE ME". CM EXPLAINED THAT DIALYSIS UNITS IN [place] AND [facility] AREA MAY NOT ACCEPT PT EITHER. PT REFUSES TO GO BACK TO [facility] OR ANYWHERE "FAR AWAY FROM HOME". CM EXPLAINED THAT CM WILL NEED TO FIND ACCEPTING PENITENTIARY AND DILAYSIS UNIT AND IF THAT WAS RECENTLY TRIED WITH NO SUCCESS, WITH [facility] BEING THE CLOSEST, THEN IT IS DOUBTFUL THAT CM WILL BE ABLE TO FIND ANYTHING ELSE CLOSER. CM EXPLAINED THAT NURSING HOMES AND LOCAL DIALYSIS UNIT MAY NOT ACCEPT DUE TO PREVIOUS NON COMPLIANCE. PT REPORTS HE HAS ALWAYS WENT TO DIALYSIS LIKE HE IS SUPPOSED TO. PT INFORMED CM THAT HE WILL GO TO A PENITENTIARY IF IT IS IN THE [place] OR [place] AREA ONLY. PT STATES IF NOT, HE WILL GO HOME AND HAS "PLENTY OF FAMILY TO STAY WITH IN [place]." CM DISCUSSED HAVING PT SIGN CONSENT FOR CM TO ATTEMPT TO LOCATE THE CLOSEST NURSING FACILITY THAT MAY ACCEPT PT, PT AGREED AND SIGNED THE CONSENT. PT AGAIN STATES THAT HE IS NOT GOING TO A PENITENTIARY UNLESS IT IS CLOSE TO HIS HOME IN [place]. CM WILL DISCUSS WITH PATIENT PATHWAYS COORDINATOR CHIRAG MILES AND SEND REFERRALS TO LOCAL NURSING FACILITIES ([facility] AND [facility]) TO ATTEMPT PLACEMENT. Manager Case: Jeff Christopher DCPIA - Discharge Planning Initial Assessment Updated by [email or web address]: Jeff Christopher on 09/19/18 6:00 pm * Is the patient Alert and Oriented? Yes * How many steps to enter\\exit or inside your home? NONE * PCP DR MCKEON IN [place] * Pharmacy [facility] IN [place] * Preadmission Environment Home Alone * ADLs Independent * Equipment Cane * Other Equipment NO MEDICAL EQUIPMENT PROVIDER PREFERENCE * List name and contact numbers for known caregivers / representatives who currently or will assist patient after discharge: ROMA OH DTR, JOCELYN GILMORE, MIRACLE LUGO, * Verbal permission to speak to the caregivers and representatives has been obtained from the patient. Yes * Community resources currently utilized Other * Please name any agencies selected above. OUTPATIENT DIALYSIS IN [facility], PATIENT CANNOT REMEMBER THE DAYS AND TIME OF SCHEDULED TREATMENT * Additional services required to return to the preadmission environment? Yes * Can the patient safely return to the preadmission environment? No * Has this patient been hospitalized within the prior 30 days at any hospital? No Coverage Notice Reviewer: [id number] Clovis Christopher Notice Issued Date-Time: 09/19/2018 14:45 Notice Type: Patient Choice Letter Notice Delivered To: Patient Relationship to Patient: Row Boss Name: Delivery Method: HAND - Hand Delivered Arlette Days: Prior Verbal Notification: Recipient Understood Notice: Yes Recipient Signature: Yes Med Rec Note Co-signed by Attending: Coverage Notice Comment: ANY NURSING FACILITY IN [facility] THAT WILL ACCEPT PT. Last DP export: 09/20/18 4:23 pm Patient Name: ODETTE OH Page [id number] at 1130 All edits/amendments must be made on the electronic document DICTATION DATE: 09/21/18 1129 COOK SEAFOOD: [facility] 09/21/18 1129 RPT#: [id number] DC DATE: STATUS: ADM IN [facility] [address] [place] [address] END OF REPORT
--- NOTE | 2018-09-21 12:06 | MORECARE ---
CASE MANAGEMENT DISCHARGE SUMMARY PATIENT: ODETTE OH UNIT: [id number] ADM DATE: 09/18/18 AGE: 57 : 64 SEX: M ROOM/BED: D.2111 AUTHOR: MARU,DOC PHYSICIAN: REFERRING PHYSICIAN: REGINA HIGGINS MD DATE OF SERVICE: 09/21/18 Discharge Plan Patient Name: ODETTE OH Facility: [facility]:[place] : 1960 Planned Disposition: Home Anticipated Discharge Date: Discharge Date: Expected LOS: Initial Reviewer: [id number] Initial Review Date: 09/19/2018 Generated: 09/21/18 1:06 pm Comments DCP- Discharge Planning Updated by [id number]: Jeff Christopher on 09/21/18 10:[address] Patient Name: ODETTE OH Encounter No: [id number] : 1960 Primary Insurance: MEDICAID [place] Anticipated DC Date: Planned Disposition: Home DCP follow-up note: CM SPOKE TO PT IN ROOM REGARDING DISCHARGE PLANNING AND NEEDS. PT UPSET WITH THE FPC IN [facility] REPORTING THEY ARE LYING ABOUT EVERYTHING. CM DISCUSSED INABILITY TO SEEK F[place] PLACEMENT [place] DUE TO NO ACCEPTING DIALYSIS CLINIC. PT UPSET ABOUT THAT ALSO. CM EXPLAINED THAT PT WILL NEED TO SHOW COMPLIANCE WITH OUTPATIENT TREATMENT AND FOLLOW DOCTORS ORDERS TO INCLUDE NOT USING DRUGS IN ORDER TO DEVELOP TRUST WITH HIS PROVIDERS IF HE HOPES TO BE ACCEPTED IN LOCAL DIALYSIS UNITS. PT TALKING VERY LOUDLY AND DID NOT APPEAR TO BE LISTENING TO CM. CM ASKED PT ABOUT FPC PLACEMENT IN [place] OR [facility]. PT REFUSED. PT STATES HE IS NOT GOING TO A FPC OUTSIDE OF THE [facility] AREA. PT STATES THE FPC WAS SUPPOSED TO SET HIM UP WITH THE [place] [facility]. CM EXPLAINED THAT THE FPC STATED THAT PT REFUSED TO TAKE PART IN DISCHARGE PLANNING PRIOR TO LEAVING THE FACILITY, TOLD STAFF AT FPC THAT HE (PT) STATED HE WOULD ARRANGE HIS OWN DIALYSIS AND REFUSED TO HAVE DISCHARGE INSTRUCTIONS EXPLAINED TO HIM. PT REPORTS THAT THEY ARE LYING. CM EXPLAINED THAT HE IS CURRENTLY STILL ASSIGNED TO THE [facility] FOR DIALYSIS AND THAT NO OTHER UNIT WILL TAKE HIM WITHOUT PRIOR ACCEPTANCE. PT STATES HE IS NOT GOING OUTSIDE [place] OR [place] AREA TO FPC, PLANS TO DISCHARGE HOME WITH HIS NEPHEW, BIMAL, AT [address] [facility] IN [place]. PT STATES HE WANTS CLOSEST DILAYSIS UNIT TO [place] HE CAN GET HE IS NOT GOING TO [facility] TO GET DIALYSIS. PT STATES IF HE CANNOT GET A UNIT CLOSE TO [place], HE WILL JUST GO HOME AND . PT PLANS TO USE MEDICAID TRANSPORT CM LEFT MESSAGE FROM CHIRAG OF [facility] WITH PT'S REQUEST. CM CALLED MEDICAID TRANSPORTATION IN [place], , SPOKE TO CYNTHIA WHO CHECKED WITH PHYSICIAN PRACTICE MARKET MANAGER AND INFORMED CM THAT PT IS STILL ELIGIBLE FOR MEDICAID TRANSPORTATION IN [place] AND HAS NOT BEEN BANNED. CM CALLED ADULT PROTECTIVE SERVICES, , PROVIDED REFERRAL ALLEDGING SELF NEGLECT AND DRUG USE BY MEDICALLY FRAGILE PERSON. CASE # [id number]. PT IS ELIGIBLE FOR MEDICAID TRANSPORT IN [place]. PT REFUSES FPC PLACEMENT OUTSIDE OF [place] AND [place] AREA. PT REPORTS PLAN TO RETURN HOME WITH NEPHEW, BIMAL, IN [place]. Jeff Christopher, CASE MANAGEMENT DCP- Discharge Planning Updated by [id number]: Jeff Christopher on 09/20/18 4:[address] Patient Name: ODETTE OH Encounter No: [id number] : 1960 Primary Insurance: MEDICAID [facility] DC Date: Planned Disposition: Nursing Facility CAIO Cert External Planned Provider: FIRST ACCEPTING PROVIDER FOR LONGTERM MEDICAID BED DCP follow-up note: CM SPOKE TO CHIRAG OF [facility]. IN JULY 2018, WHILE AT [facility], PT WAS DECLINED AT [facility], [facility], [facility] (ENTIRE GROUP OF [facility] IN THE [facility]) [facility] AND [facility] THEY DON'T ACCEPT DIALYSIS PATIENTS. [facility] WAS ABLE TO OBTAIN PLACEMENT AT [facility] IN [place], [place]. MEDICAID TRANSPORTATION IN [place] WILL NO LONGER TRANSPORT PT TO AND FROM DIALYSIS OF JUNE 2018. WHILE AT THE [facility], PT HAD EPISODES OF AGRESSION AND THREATS TOWARD STAFF AND OTHER RESIDENTS. PT HAD THE POLICE CALLED ON HIM DUE TO ALLEGATION OF THEFT FROM ANOTHER RESIDENT AND GOING OUTSIDE TO SMOKE, USING DOOR CODE HE WAS NOT SUPPOSED TO HAVE TO EXIT AND THREATENED STAFF WHEN INFORMED HE WAS NOT TO BE LEAVING THE BUILDING, HAVING THE DOOR CODE OR SMOKING. PT REFUSED STAFF ASSISTANCE IN DISCHARGE PLANNING. PT'S DAUGHTER WAS CONTACTED BY FACILITY ON 09-02 AND INFORMED FACILITY PT CANNOT RETURN TO HER HOME. PT CONTACTED HIS NEPHEW BIMAL, [address], [address], [facility] [employer] [employer], REPORTED THIS TO BE HIS DISCHARGE ADDRESS, LEFT FACILITY REFUSING TO ALLOW THE FACILITY TO ARRANGE OUTPATIENT DIALYSIS SERVICES REPORTING HE WILL DO IT HIMSELF. PT DID SIGN THE DISCHARGE DOCUMENTS BUT REFUSED TO HAVE THEM EXPLAINED TO HIM. PT CANNOT RETURN TO THE FPC AND THE FPC SUGGESTS THAT ADULT PROTECTIVE SERVICES BE CONTACTED. CM WILL CALL ADULT PROTECTIVE SERVICES WITH ALLEGATIONS OF SELF NEGLECT. CM WILL CONTINUE TO TRY TO WORK WITH PT AND CONTINUE TO ATTEMPT TO FIND FPC PLACEMENT THAT PT WILL AGREE TO. CM WILL NOT BE ABLE TO PLACE PT IN THE [facility] DIALYSIS UNITS WILL NOT ACCEPT PATIENT. Jeff Christopher, CASE MANAGEMENT DCP- Discharge Planning Updated by [id number]: Jeff Christopher on 09/19/18 5:[address] Patient Name: ODETTE OH Admission Status: ER Accout number: [id number] Admission Date: 09-18-2018 : 1960 Admission Diagnosis: Attending: REGINA HIGGINS Current LOS: 1 Anticipated DC Date: Planned Disposition: Nursing Facility [facility] Primary Insurance: MEDICAID [place] PLANNED EXTERNAL PROVIDER: TO BE DETERMINED, LONGTERM CARE MEDICAID BED Discharge Planning Comments: CM RECEIVED ORDER TO ASSIST WITH FPC PLACEMENT. CM MET WITH PT IN ROOM TO DISCUSS DISCHARGE PLANNING AND NEEDS. PT REPORTS LIVING AT HOME INDEPENDENTLY; PT EITHER COULD NOT OR WOUND NOT TELL CM WHERE HE HAS BEEN LIVING. PT REPORTS HE WAS PUT IN A FPC IN [facility] FROM THE OTHER HOSPITAL AN D IT WAS 2 1/2 HOURS AWAY FROM HOME, HE COULD NOT SEE HIS FAMILY AND THAT "JUST WON'T WORK." PT REPORTS HE WAS THERE FOR ONE MONTH AND LEFT "THE OTHER DAY." PT REPORTS "I CAME HOME". WHEN PRESSED FOR WHERE HE HAS BEEN LIVING, PT STILL WOULD NOT TELL CM WHERE HE HAS BEEN LIVING. PT DID INFORM CM HE HAS NOT BEEN LIVING WITH HIS DAUGHTER ROMA. PT WOULD NOT OR COULD NOT RECALL WHO PICKED HIM UP FROM THE FPC STATING "ALL I KNOW IF I CAME HOME." . PT HAS A CANE WITH NO MEDICAL EQUIPMENT PROVIDER PREFERENCE. PT REPORTS THEY HAD HIM IN DIALYSIS IN [facility] AND THE FPC CALLED [place] [facility] TO GET IT CHANGED. PT DOES NOT KNOW IF HIS OUTPATIENT DIALYSIS WAS CHANGED. CM DISCUSSED ORDER FOR FPC PLACEMENT. PT REPORTS HE WANTS A FPC CLOSE TO [place] OR [place]. CM ASKED PT WHY HE WASN'T PLACED IN A NUSING HOME CLOSER TO [place] TO START WITH. PT INIITALLY STATES HE DID NOT KNOW, BUT WHEN PRESSED, PT STATES THAT "NO ONE WOULD TAKE ME". CM EXPLAINED THAT DIALYSIS UNITS IN [place] AND [facility] AREA MAY NOT ACCEPT PT EITHER. PT REFUSES TO GO BACK TO [facility] OR ANYWHERE "FAR AWAY FROM HOME". CM EXPLAINED THAT CM WILL NEED TO FIND ACCEPTING FPC AND DILAYSIS UNIT AND IF THAT WAS RECENTLY TRIED WITH NO SUCCESS, WITH [facility] BEING THE CLOSEST, THEN IT IS DOUBTFUL THAT CM WILL BE ABLE TO FIND ANYTHING ELSE CLOSER. CM EXPLAINED THAT NURSING HOMES AND LOCAL DIALYSIS UNIT MAY NOT ACCEPT DUE TO PREVIOUS NON COMPLIANCE. PT REPORTS HE HAS ALWAYS WENT TO DIALYSIS LIKE HE IS SUPPOSED TO. PT INFORMED CM THAT HE WILL GO TO A FPC IF IT IS IN THE [place] OR [place] AREA ONLY. PT STATES IF NOT, HE WILL GO HOME AND HAS "PLENTY OF FAMILY TO STAY WITH IN [place]." CM DISCUSSED HAVING PT SIGN CONSENT FOR CM TO ATTEMPT TO LOCATE THE CLOSEST NURSING FACILITY THAT MAY ACCEPT PT, PT AGREED AND SIGNED THE CONSENT. PT AGAIN STATES THAT HE IS NOT GOING TO A FPC UNLESS IT IS CLOSE TO HIS HOME IN [place]. CM WILL DISCUSS WITH [facility] COORDINATOR CHIRAG MILES AND SEND REFERRALS TO LOCAL NURSING FACILITIES ([facility] AND [facility]) TO ATTEMPT PLACEMENT. Center Rep: Jeff Christopher DCPIA - Discharge Planning Initial Assessment Updated by [id number]: Jeff Christopher on 09/19/18 6:00 pm * Is the patient Alert and Oriented? Yes * How many steps to enter\\exit or inside your home? NONE * PCP DR MCKEON IN [place] * Pharmacy [facility] [place] * Preadmission Environment Home Alone * ADLs Independent * Equipment Cane * Other Equipment NO MEDICAL EQUIPMENT PROVIDER PREFERENCE * List name and contact numbers for known caregivers / representatives who currently or will assist patient after discharge: ROMA OH DTR, PAUL JOCELYN LIANG, MIRACLE LUGO, * Verbal permission to speak to the caregivers and representatives has been obtained from the patient. Yes * Community resources currently utilized Other * Please name any agencies selected above. OUTPATIENT DIALYSIS IN [facility], PATIENT CANNOT REMEMBER THE DAYS AND TIME OF SCHEDULED TREATMENT * Additional services required to return to the preadmission environment? Yes * Can the patient safely return to the preadmission environment? No * Has this patient been hospitalized within the prior 30 days at any hospital? No Coverage Notice Reviewer: [id number] Clovis Christopher Notice Issued Date-Time: 09/19/2018 14:45 Notice Type: Patient Choice Letter Notice Delivered To: Patient Relationship to Patient: Car Tester Name: Delivery Method: HAND - Hand Delivered Arlette Days: Prior Verbal Notification: Recipient Understood Notice: Yes Recipient Signature: Yes Med Rec Note Co-signed by Attending: Coverage Notice Comment: ANY NURSING FACILITY IN [facility] THAT WILL ACCEPT PT. Last DP export: 09/21/18 10:30 am Patient Name: ODETTE OH Page [id number] at 1206 All edits/amendments must be made on the electronic document DICTATION DATE: 09/21/181205 MOTORMAN/WOMAN: [facility] 09/21/18 120 RPT#: [id number] DC DATE: STATUS: ADM IN [facility] [address] [place] [address] END OF REPORT
--- NOTE | 2018-09-21 13:35 | NUR ---
PT TAKEN VIA BED FOR FISTULOGRAM.
--- NOTE | 2018-09-21 14:15 | NUR ---
PT PLACED BACK ON BIPAP MACHINE AFTER SWALLOW STUDY WITH DAYANA WAS DONE. FAMILY AT BEDSIDE.
--- NOTE | 2018-09-21 15:26 | NUR ---
PT ARRIVED TO UNIT VIA BED. ALERT AND ORIENTED. O2 AT 2L VIA NC. LEFT ARM DRESSING HAS BLOOD ON IT BUT IS INTACT. PT RECEIVED 100MC FENTANYL, 2MG VERSED, AND 3000 UNIT HEPARIN BOLUS. PT HAS NO FURTHER NEEDS AT THIS TIME. BED LOW. CL IN REACH.
--- NOTE | 2018-09-21 15:58 | NUR ---
PT IN BED WITH HOB ELEVATED. RESTING QUIETLY. VS STBALE. WILL CONTINUE TO MONITOR. BED LOW, CL IN REACH.
--- NOTE | 2018-09-21 17:22 | NUR ---
LT ARM DRESSING NOT COMPLETELY SATURATED WITH BLOOD. WILL LEAVE DRESSING INTACT AND ELEVATED LEFT ARM ON PILLOW.
--- NOTE | 2018-09-21 20:15 | NUR ---
RESUMING PATIENT CARE. PT IS RESTING COMFORTABLY WITH EYES CLOSED. BED IN LOW POSITION WITH CALL LIGHT IN REACH. WILL CONTINUE TO MONITOR PT AND FOLLOW PLAN OF CARE.
--- NOTE | 2018-09-21 23:53 | NUR ---
LEFT ARM DRESSING COMPLETELY SATURATED WITH BLOOD. DRESSING WAS CHANGE AND IS CLEAN AND INTACT.
[2018-09-22 00:36] VITALS: BP 150/73
--- NOTE | 2018-09-22 03:23 | NUR ---
PT LAYING IN BED WITH EYES CLOSED RESTING COMFORTABLY. BED IN LOW POSITION WITH CALL LIGHT IN REACH. WILL CONTINUE TO MONITOR PT.
[2018-09-22 04:00] VITALS: BP 144/88
[2018-09-22 05:01] LABS: BASOPHILS 0 % (0-2); EOSINOPHILS 0.6 % (0-7); HEMATOCRIT 25.3 % (42.0-54.0); HEMOGLOBIN 8.1 g/dL (13.5-17.5); IMMATURE GRANULOCYTES 0.2 % (0-5); LYMPHOCYTES 17.5 % (15-50); MEAN PLATELET VOLUME 10.7 fL (7.4-10.4); MONOCYTES 12.7 % (2-11); PLATELET COUNT 117 10x3/uL (130-400); RBC 2.79 10x6/uL (4.20-6.10); RDW 18.4 % (11.5-14.5); WBC 5.3 10x3/uL (4.8-10.8)
[2018-09-22 05:04] LABS: MCV 90.7 fL (80.0-100.0)
[2018-09-22 05:17] LABS: ANION GAP 19.9 mmol/L (8-16); CALCIUM 7.4 mg/dL (8.5-10.1); CARBON DIOXIDE 22.8 mmol/L (21.0-32.0); CREATININE - SERUM 10.9 mg/dL (0.6-1.3); POTASSIUM - SERUM 4.7 mmol/L (3.5-5.1)
[2018-09-22 05:20] LABS: PHOSPHOROUS 8.2 mg/dL (2.5-4.9)
[2018-09-22 07:49] VITALS: BP 147/74
--- NOTE | 2018-09-22 08:05 | NUR ---
PT ASLEEP. DID NOT WAKE I ENTERED. DID NOT FURTHER DISTURB AT THIS TIME. CL IN REACH. SRX2.
--- NOTE | 2018-09-22 10:08 | NUR ---
TO DIALYSIS BY BED. WILL CONT. PLAN OF CARE.
--- NOTE | 2018-09-22 12:15 | NUR ---
Nutrition Follow Up: Chart reviewed Diet: Renal PO Intake: 85% meal avg BM: 09/18/18 Meds and labs reviewed Rec continue current diet. RD following.
[2018-09-22 15:33] VITALS: BP 123/57
[2018-09-22 19:55] VITALS: BP 132/64
--- NOTE | 2018-09-22 20:10 | NUR ---
RESUMING PT CARE. PT IS ALERT LAYING IN BED WITH NO C/O VOICED AT THIS TIME. RESPIRATIONS ARE EVEN AND UNLABORED. BED IN LOW POSITION WITH CALL LIGHT IN REACH. WILL CONTINUE TO MONITOR PT AND FOLLOW PLAN OF CARE.
[2018-09-23 00:35] VITALS: BP 111/66
[2018-09-23 03:50] VITALS: BP 130/74
--- NOTE | 2018-09-23 04:23 | NUR ---
RESTING IN BED WITH EYES CLOSED. RESERVE LEFT ARM SIGN ON DOOR. IV TO RIGHT FA SL. URINAL AT BEDSIDE. WILL CONT. POC.
[2018-09-23 05:28] LABS: ANION GAP 17.8 mmol/L (8-16); CALCIUM 7.5 mg/dL (8.5-10.1); CARBON DIOXIDE 25.5 mmol/L (21.0-32.0); CREATININE - SERUM 8.4 mg/dL (0.6-1.3); PHOSPHOROUS 6.8 mg/dL (2.5-4.9); POTASSIUM - SERUM 4.3 mmol/L (3.5-5.1)
[2018-09-23 05:29] LABS: BASOPHILS 0 % (0-2); EOSINOPHILS 0.7 % (0-7); HEMATOCRIT 26.1 % (42.0-54.0); HEMOGLOBIN 8.4 g/dL (13.5-17.5); IMMATURE GRANULOCYTES 0.4 % (0-5); LYMPHOCYTES 19.7 % (15-50); MCH 29.5 pg (26.0-34.0); MCHC 32.2 g/dL (31.0-37.0); MCV 91.6 fL (80.0-100.0); MONOCYTES 13.2 % (2-11); PLATELET COUNT 115 10x3/uL (130-400); RBC 2.85 10x6/uL (4.20-6.10); RDW 18.2 % (11.5-14.5); WBC 5.5 10x3/uL (4.8-10.8)
--- NOTE | 2018-09-23 07:25 | NUR ---
PT ASLEEP, DID NOT WAKE WHEN I ENTERED. DID NOT FURTHER DISTURB AT THIS TIME. CL IN REACH. SRX2.
[2018-09-23 08:25] VITALS: BP 137/69
--- NOTE | 2018-09-23 08:38 | NUR ---
PT IV IS OUT.
[2018-09-23 12:12] VITALS: BP 112/58
--- NOTE | 2018-09-23 12:48 | NUR ---
PT THREATENING TO [facility] IS AWARE. PT HAS TO STAY TO HAVE DIALYSIS SET UP. PT IS UNHAPPY
--- NOTE | 2018-09-23 13:32 | NUR ---
RESTING QUIETLY NAD NOTED
--- NOTE | 2018-09-23 14:02 | NUR ---
[facility] INFORMED OF DECISION BY HODA HUGGINS. PT IS WELL INFORMED OF THE IMPLICATIONS OF HIS CHOICE. YELLED AT [facility]. WILL OBTAIN PROPPER PAPERWORK, DAUGHTER IS ON THE WAY.
--- NOTE | 2018-09-23 14:55 | NUR ---
PT SIGNED AMA FORMS. STATES HIS DAUGHTER WILL NOT BE HERE UNTIL TIME AFTER 1530 BECAUSE OF WORK.
--- NOTE | 2018-09-23 16:39 | NUR ---
PT HAS LEFT AMA.
--- NOTE | 2018-09-25 08:39 | MORECARE ---
CASE MANAGEMENT DISCHARGE SUMMARY PATIENT: ODETTE OH UNIT: [id number] ADM DATE: 09/18/18 AGE: 57 : 64 SEX: M ROOM/BED: D.2111 AUTHOR: MARU,DOC PHYSICIAN: REFERRING PHYSICIAN: REGINA HIGGINS MD DATE OF SERVICE: 09/25/18 Discharge Plan Patient Name: ODETTE OH Facility: [facility]:[place] : 1960 Planned Disposition: Home Anticipated Discharge Date: 09/23/18 Discharge Date: 09/23/2018 Expected LOS: 5 Initial Reviewer: [id number] Initial Review Date: 09/19/2018 Generated: 09/25/18 9:39 am Comments DCP- Discharge Planning Updated by [id number]: Jeff Christopher on 09/21/18 10:[address] Patient Name: ODETTE OH Encounter No: [id number] : 1960 Primary Insurance: [place]ID [place] Anticipated DC Date: Planned Disposition: Home DCP follow-up note: CM SPOKE TO PT IN ROOM REGARDING DISCHARGE PLANNING AND NEEDS. PT UPSET WITH THE ALF IN [facility] REPORTING THEY ARE LYING ABOUT EVERYTHING. CM DISCUSSED INABILITY TO SEEK ALF PLACEMENT IN [place] DUE TO NO ACCEPTING DIALYSIS CLINIC. PT UPSET ABOUT THAT ALSO. CM EXPLAINED THAT PT WILL NEED TO SHOW COMPLIANCE WITH OUTPATIENT TREATMENT AND FOLLOW DOCTORS ORDERS TO INCLUDE NOT USING DRUGS IN ORDER TO DEVELOP TRUST WITH HIS PROVIDERS IF HE HOPES TO BE ACCEPTED IN LOCAL DIALYSIS UNITS. PT TALKING VERY LOUDLY AND DID NOT APPEAR TO BE LISTENING TO CM. CM ASKED PT ABOUT ALF PLACEMENT IN [place] [facility]. PT REFUSED. PT STATES HE IS NOT GOING TO A ALF OUTSIDE OF THE [facility] AREA. PT STATES THE ALF WAS SUPPOSED TO SET HIM UP WITH THE [place] [facility]. CM EXPLAINED THAT THE ALF STATED THAT PT REFUSED TO TAKE PART IN DISCHARGE PLANNING PRIOR TO LEAVING THE FACILITY, TOLD STAFF AT ALF THAT HE (PT) STATED HE WOULD ARRANGE HIS OWN DIALYSIS AND REFUSED TO HAVE DISCHARGE INSTRUCTIONS EXPLAINED TO HIM. PT REPORTS THAT THEY ARE LYING. CM EXPLAINED THAT HE IS CURRENTLY STILL ASSIGNED TO THE [facility] FOR DIALYSIS AND THAT NO OTHER UNIT WILL TAKE HIM WITHOUT PRIOR ACCEPTANCE. PT STATES HE IS NOT GOING OUTSIDE [place] OR [place] AREA TO ALF, PLANS TO DISCHARGE HOME WITH HIS NEPHEW, BIMAL, AT [address] [place] [address] IN [place]. PT STATES HE WANTS CLOSEST DILAYSIS UNIT TO [place] HE CAN GET HE IS NOT GOING TO [facility] TO GET DIALYSIS. PT STATES IF HE CANNOT GET A UNIT CLOSE TO [place], HE WILL JUST GO HOME AND . PT PLANS TO USE MEDICAID TRANSPORT CM LEFT MESSAGE FROM CHIRAG OF [employer] [facility] WITH PT'S REQUEST. CM CALLED MEDICAID TRANSPORTATION IN [place], , SPOKE TO CYNTHIA WHO CHECKED WITH CORRUGATOR AND INFORMED CM THAT PT IS STILL ELIGIBLE FOR MEDICAID TRANSPORTATION IN [place] AND HAS NOT BEEN BANNED. CM CALLED ADULT PROTECTIVE SERVICES, , PROVIDED REFERRAL ALLEDGING SELF NEGLECT AND DRUG USE BY MEDICALLY FRAGILE PERSON. CASE # [id number]. PT IS ELIGIBLE FOR MEDICAID TRANSPORT IN [place]. PT REFUSES ALF PLACEMENT OUTSIDE OF [place] AND [facility]. PT REPORTS PLAN TO RETURN HOME WITH NEPHEW, BIMAL, IN [place]. Jeff Christopher, CASE MANAGEMENT DCP- Discharge Planning Updated by [id number]: Jeff Christopher on 09/20/18 4:[address] Patient Name: ODETTE OH Encounter No: [id number] : 1960 Primary Insurance: [place]ID [place] Anticipated DC Date: Planned Disposition: Nursing Facility [facility] Cert External Planned Provider: FIRST ACCEPTING PROVIDER FOR OPTIMIZATION ENGINEER MEDICAID BED DCP follow-up note: CM SPOKE TO [facility]IRAG OF [facility]. IN JULY 2018, WHILE AT [facility] PT WAS DECLINED AT [facility], [facility], [facility] (ENTIRE GROUP OF 37 HOMES IN THE [facility] [place] AND [facility] THEY DON'T ACCEPT DIALYSIS PATIENTS. [facility] WAS ABLE TO OBTAIN PLACEMENT AT [facility] IN [place], [place]. MEDICAID TRANSPORTATION IN [place] WILL NO LONGER TRANSPORT PT TO AND FROM DIALYSIS OF JUNE 2018. WHILE AT THE [facility], PT HAD EPISODES OF AGRESSION AND THREATS TOWARD STAFF AND OTHER RESIDENTS. PT HAD THE POLICE CALLED ON HIM DUE TO ALLEGATION OF THEFT FROM ANOTHER RESIDENT AND GOING OUTSIDE TO SMOKE, USING DOOR CODE HE WAS NOT SUPPOSED TO HAVE TO EXIT AND THREATENED STAFF WHEN INFORMED HE WAS NOT TO BE LEAVING THE BUILDING, HAVING THE DOOR CODE OR SMOKING. PT REFUSED STAFF ASSISTANCE IN DISCHARGE PLANNING. PT'S DAUGHTER WAS CONTACTED BY FACILITY ON 09-02 AND INFORMED FACILITY PT CANNOT RETURN TO HER HOME. PT CONTACTED HIS NEPHEW BIMAL, [address], [address], [facility] FOR [facility] [employer] SPECIALIST, REPORTED THIS TO BE HIS DISCHARGE ADDRESS, LEFT FACILITY REFUSING TO ALLOW THE FACILITY TO ARRANGE OUTPATIENT DIALYSIS SERVICES REPORTING HE WILL DO IT HIMSELF. PT DID SIGN THE DISCHARGE DOCUMENTS BUT REFUSED TO HAVE THEM EXPLAINED TO HIM. PT CANNOT RETURN TO THE ALF AND THE ALF SUGGESTS THAT ADULT PROTECTIVE SERVICES BE CONTACTED. CM WILL CALL ADULT PROTECTIVE SERVICES WITH ALLEGATIONS OF SELF NEGLECT. CM WILL CONTINUE TO TRY TO WORK WITH PT AND CONTINUE TO ATTEMPT TO FIND ALF PLACEMENT THAT PT WILL AGREE TO. CM WILL NOT BE ABLE TO PLACE PT IN THE [facility] D[facility]YSIS UNITS WILL NOT ACCEPT PATIENT. Jeff Christopher, CASE MANAGEMENT DCP- Discharge Planning Updated by [id number]: Jeff Christopher on 09/19/18 5:[address] Patient Name: ODETTE OH Admission Status: ER Accout number: [id number] Admission Date: 09-18-2018 : 1960 Admission Diagnosis: Attending: REGINA HIGGINS Current LOS: 1 Anticipated DC Date: Planned Disposition: Nursing Facility [facility] Primary Insurance: MEDICAID [place] PLANNED EXTERNAL PROVIDER: TO BE DETERMINED, SKILLED NURSING CARE MEDICAID BED Discharge Planning Comments: CM RECEIVED ORDER TO ASSIST WITH ALF PLACEMENT. CM MET WITH PT IN ROOM TO DISCUSS DISCHARGE PLANNING AND NEEDS. PT REPORTS LIVING AT HOME INDEPENDENTLY; PT EITHER COULD NOT OR WOUND NOT TELL CM WHERE HE HAS BEEN LIVING. PT REPORTS HE WAS PUT IN A ALF IN [facility] FROM THE OTHER HOSPITAL AN D IT WAS 2 1/2 HOURS AWAY FROM HOME, HE COULD NOT SEE HIS FAMILY AND THAT "JUST WON'T WORK." PT REPORTS HE WAS THERE FOR ONE MONTH AND LEFT "THE OTHER DAY." PT REPORTS "I CAME HOME". WHEN PRESSED FOR WHERE HE HAS BEEN LIVING, PT STILL WOULD NOT TELL CM WHERE HE HAS BEEN LIVING. PT DID INFORM CM HE HAS NOT BEEN LIVING WITH HIS DAUGHTER ROMA. PT WOULD NOT OR COULD NOT RECALL WHO PICKED HIM UP FROM THE ALF STATING "ALL I KNOW IF I CAME HOME." . PT HAS A CANE WITH NO MEDICAL EQUIPMENT PROVIDER PREFERENCE. PT REPORTS THEY HAD HIM IN DIALYSIS IN [facility] AND THE ALF CALLED [place] [facility] TO GET IT CHANGED. PT DOES NOT KNOW IF HIS OUTPATIENT DIALYSIS WAS CHANGED. CM DISCUSSED ORDER FOR ALF PLACEMENT. PT REPORTS HE WANTS A ALF CLOSE TO [place] OR [place]. CM ASKED PT WHY HE WASN'T PLACED IN A NUSING HOME CLOSER TO [place] TO START WITH. PT INIITALLY STATES HE DID NOT KNOW, BUT WHEN PRESSED, PT STATES THAT "NO ONE WOULD TAKE ME". CM EXPLAINED THAT DIALYSIS UNITS IN [place] AND [facility] MAY NOT ACCEPT PT EITHER. PT REFUSES TO GO BACK TO [facility] OR ANYWHERE "FAR AWAY FROM HOME". CM EXPLAINED THAT CM WILL NEED TO FIND ACCEPTING ALF AND DILAYSIS UNIT AND IF THAT WAS RECENTLY TRIED WITH NO SUCCESS, WITH [facility] BEING THE CLOSEST, THEN IT IS DOUBTFUL THAT CM WILL BE ABLE TO FIND ANYTHING ELSE CLOSER. CM EXPLAINED THAT NURSING HOMES AND LOCAL DIALYSIS UNIT MAY NOT ACCEPT DUE TO PREVIOUS NON COMPLIANCE. PT REPORTS HE HAS ALWAYS WENT TO DIALYSIS LIKE HE IS SUPPOSED TO. PT INFORMED CM THAT HE WILL GO TO A ALF IF IT IS IN THE [place] OR [place] AREA ONLY. PT STATES IF NOT, HE WILL GO HOME AND HAS "PLENTY OF FAMILY TO STAY WITH IN [place]." CM DISCUSSED HAVING PT SIGN CONSENT FOR CM TO ATTEMPT TO LOCATE THE CLOSEST NURSING FACILITY THAT MAY ACCEPT PT, PT AGREED AND SIGNED THE CONSENT. PT AGAIN STATES THAT HE IS NOT GOING TO A ALF UNLESS IT IS CLOSE TO HIS HOME IN [place]. CM WILL DISCUSS WITH [facility] COORDINATOR CHIRAG MILES AND SEND REFERRALS TO LOCAL NURSING FACILITIES ([facility] TO ATTEMPT PLACEMENT. Heel Builder Machine: Jeff Christopher DCPIA - Discharge Planning Initial Assessment Updated by [id number]: Jeff Christopher on 09/19/18 6:00 pm * Is the patient Alert and Oriented? Yes * How many steps to enter\\exit or inside your home? NONE * PCP DR MCKEON IN [place] * Pharmacy [facility] IN [place] * Preadmission Environment Home Alone * ADLs Independent * Equipment Cane * Other Equipment NO MEDICAL EQUIPMENT PROVIDER PREFERENCE * List name and contact numbers for known caregivers / representatives who currently or will assist patient after discharge: ROMA OH DTR, JOCELYN GILMORE, MIRACLE LUGO, * Verbal permission to speak to the caregivers and representatives has been obtained from the patient. Yes * Community resources currently utilized Other * Please name any agencies selected above. OUTPATIENT DIALYSIS IN [facility], PATIENT CANNOT REMEMBER THE DAYS AND TIME OF SCHEDULED TREATMENT * Additional services required to return to the preadmission environment? Yes * Can the patient safely return to the preadmission environment? No * Has this patient been hospitalized within the prior 30 days at any hospital? No Coverage Notice Reviewer: [id number] Clovis Christopher Notice Issued Date-Time: 09/19/2018 14:45 Notice Type: Patient Choice Letter Notice Delivered To: Patient Relationship to Patient: Call Center Recruiter Name: Delivery Method: HAND - Hand Delivered Arlette Days: Prior Verbal Notification: Recipient Understood Notice: Yes Recipient Signature: Yes Med Rec Note Co-signed by Attending: Coverage Notice Comment: ANY NURSING FACILITY IN [facility] THAT WILL ACCEPT PT. Last DP export: 09/21/18 11:06 am Patient Name: ODETTE OH Page [id number] at 0839 All edits/amendments must be made on the electronic document DICTATION DATE: 09/25/18838 CCU NURSE: [facility] 09/25/18838 RPT#: [id number] DC DATE:09/23/18 STATUS: DIS IN [place] [id number] [place] [address] END OF REPORT
--- NOTE | 2018-09-25 08:46 | MORECARE ---
CASE MANAGEMENT DISCHARGE SUMMARY PATIENT: ODETTE OH UNIT: [id number] ADM DATE: 09/18/18 AGE: 57 : 64 SEX: M ROOM/BED: D.2111 AUTHOR: MARU,DOC PHYSICIAN: REFERRING PHYSICIAN: REGINA HIGGINS MD DATE OF SERVICE: 09/25/18 Discharge Plan Patient Name: ODETTE OH Facility: [facility]:[place] : 1960 Planned Disposition: Home Anticipated Discharge Date: 09/23/18 Discharge Date: 09/23/2018 Expected LOS: 5 Initial Reviewer: [id number] Initial Review Date: 09/19/2018 Generated: 09/25/18 9:46 am Comments DCP- Discharge Planning Updated by [id number]: Jeff Christopher on 09/25/18 7:[address] Patient Name: ODETTE OH Encounter No: [id number] : 1960 Primary Insurance: MEDICAID [place] Anticipated DC Date: 09-23-2018 Planned Disposition: LEFT AGAINST MEDICAL ADVICE DCP follow-up note: CM REVIEWED CHART, PT LEFT AGAINST MEDICAL ADVICE ON 09-23-18. SUSI Farmer DCP- Discharge Planning Updated by [id number]: Jeff Chrisotpher on 09/21/18 10:[address] Patient Name: ODETTE OH Encounter No: [id number] : 1960 Primary Insurance: MEDICAID [place] Anticipated DC Date: Planned Disposition: Home DCP follow-up note: CM SPOKE TO PT IN ROOM REGARDING DISCHARGE PLANNING AND NEEDS. PT UPSET WITH THE LONG-TERM IN [facility] REPORTING THEY ARE LYING ABOUT EVERYTHING. CM DISCUSSED INABILITY TO SEEK LONG-TERM PLACEMENT IN [facility] DUE TO NO ACCEPTING DIALYSIS CLINIC. PT UPSET ABOUT THAT ALSO. CM EXPLAINED THAT PT WILL NEED TO SHOW COMPLIANCE WITH OUTPATIENT TREATMENT AND FOLLOW DOCTORS ORDERS TO INCLUDE NOT USING DRUGS IN ORDER TO DEVELOP TRUST WITH HIS PROVIDERS IF HE HOPES TO BE ACCEPTED IN LOCAL DIALYSIS UNITS. PT TALKING VERY LOUDLY AND DID NOT APPEAR TO BE LISTENING TO CM. CM ASKED PT ABOUT LONG-TERM PLACEMENT IN [place] OR [facility]. PT REFUSED. PT STATES HE IS NOT GOING TO A LONG-TERM OUTSIDE OF THE [facility] AREA. PT STATES THE LONG-TERM WAS SUPPOSED TO SET HIM UP WITH THE [place] [facility] UN[facility]. CM EXPLAINED THAT THE LONG-TERM STATED THAT PT REFUSED TO TAKE PART IN DISCHARGE PLANNING PRIOR TO LEAVING THE FACILITY, TOLD STAFF AT LONG-TERM THAT HE (PT) STATED HE WOULD ARRANGE HIS OWN DIALYSIS AND REFUSED TO HAVE DISCHARGE INSTRUCTIONS EXPLAINED TO HIM. PT REPORTS THAT THEY ARE LYING. CM EXPLAINED THAT HE IS CURRENTLY STILL ASSIGNED TO THE [place] UN[facility] FOR DIALYSIS AND THAT NO OTHER UNIT WILL TAKE HIM WITHOUT PRIOR ACCEPTANCE. PT STATES HE IS NOT GOING [place] TO LONG-TERM, PLANS TO DISCHARGE HOME WITH HIS NEPHEW, BIMAL, AT [address] [facility] IN [place]. PT STATES HE WANTS CLOSEST DILAYSIS UNIT TO [place] HE CAN GET HE IS NOT GOING TO [facility] TO GET DIALYSIS. PT STATES IF HE CANNOT GET A UNIT CLOSE TO [place], HE WILL JUST GO HOME AND . PT PLANS TO USE MEDICAID TRANSPORT CM LEFT MESSAGE FROM [facility]IRAG OF [employer] [facility] WITH PT'S REQUEST. CM CALLED MEDICAID TRANSPORTATION IN [place], , SPOKE TO CYNTHIA WHO CHECKED WITH GEAR GRINDING MACHINE OPERATOR AND INFORMED CM THAT PT IS STILL ELIGIBLE FOR MEDICAID TRANSPORTATION IN [place] AND HAS NOT BEEN BANNED. CM CALLED ADULT PROTECTIVE SERVICES, , PROVIDED REFERRAL ALLEDGING SELF NEGLECT AND DRUG USE BY MEDICALLY FRAGILE PERSON. CASE # [id number]. PT IS ELIGIBLE FOR MEDICAID TRANSPORT IN [place]. PT REFUSES LONG-TERM PLACEMENT OUTSIDE OF [facility]. PT REPORTS PLAN TO RETURN HOME WITH NEPHEW, BIMAL, IN [place]. Jeff Christopher, CASE MANAGEMENT DCP- Discharge Planning Updated by [id number]: Jeff Christopher on 09/20/18 4:[address] Patient Name: ODETTE OH Encounter No: [id number] : 1960 Primary Insurance: MEDICAID [facility] DC Date: Planned Disposition: Nursing Facility [facility] External Planned Provider: FIRST ACCEPTING PROVIDER FOR ALF MEDICAID BED DCP follow-up note: CM SPOKE TO [facility] OF [facility]. IN JULY 2018, WHILE AT [facility] PT WAS DECLINED AT [facility], [facility], [facility] (ENTIRE GROUP OF [facility] IN THE [facility] [place] AND [place] THEY DON'T ACCEPT DIALYSIS PATIENTS. [facility] WAS ABLE TO OBTAIN PLACEMENT AT [facility] IN [place], [place]. MEDICAID TRANSPORTATION IN [place] WILL NO LONGER TRANSPORT PT TO AND FROM DIALYSIS OF JUNE 2018. WHILE AT THE [facility], PT HAD EPISODES OF AGRESSION AND THREATS TOWARD STAFF AND OTHER RESIDENTS. PT HAD THE POLICE CALLED ON HIM DUE TO ALLEGATION OF THEFT FROM ANOTHER RESIDENT AND GOING OUTSIDE TO SMOKE, USING DOOR CODE HE WAS NOT SUPPOSED TO HAVE TO EXIT AND THREATENED STAFF WHEN INFORMED HE WAS NOT TO BE LEAVING THE BUILDING, HAVING THE DOOR CODE OR SMOKING. PT REFUSED STAFF ASSISTANCE IN DISCHARGE PLANNING. PT'S DAUGHTER WAS CONTACTED BY FACILITY ON 09-02 AND INFORMED FACILITY PT CANNOT RETURN TO HER HOME. PT CONTACTED HIS NEPHEW BIMAL, [address], [address], [facility] FOR [facility], REPORTED THIS TO BE HIS DISCHARGE ADDRESS, LEFT FACILITY REFUSING TO ALLOW THE FACILITY TO ARRANGE OUTPATIENT DIALYSIS SERVICES REPORTING HE WILL DO IT HIMSELF. PT DID SIGN THE DISCHARGE DOCUMENTS BUT REFUSED TO HAVE THEM EXPLAINED TO HIM. PT CANNOT RETURN TO THE LONG-TERM AND THE LONG-TERM SUGGESTS THAT ADULT PROTECTIVE SERVICES BE CONTACTED. CM WILL CALL ADULT PROTECTIVE SERVICES WITH ALLEGATIONS OF SELF NEGLECT. CM WILL CONTINUE TO TRY TO WORK WITH PT AND CONTINUE TO ATTEMPT TO FIND LONG-TERM PLACEMENT THAT PT WILL AGREE TO. WILL NOT BE ABLE TO PLACE PT IN THE [place] OR [facility] DIALYSIS UNITS WILL NOT ACCEPT PATIENT. Jeff Christopher, CASE MANAGEMENT DCP- Discharge Planning Updated by [id number]: Jeff Christopher on 09/19/18 5:[address] Patient Name: ODETTE OH Admission Status: ER Accout number: [id number] Admission Date: 09-18-2018 : 1960 Admission Diagnosis: Attending: REGINA HIGGINS Current LOS: 1 Anticipated DC Date: Planned Disposition: Nursing Facility [facility] Primary Insurance: MEDICAID [place] PLANNED EXTERNAL PROVIDER: TO BE DETERMINED, LEGAL SECRETARY RECEPTIONIST CARE MEDICAID BED Discharge Planning Comments: CM RECEIVED ORDER TO ASSIST WITH LONG-TERM PLACEMENT. CM MET WITH PT IN ROOM TO DISCUSS DISCHARGE PLANNING AND NEEDS. PT REPORTS LIVING AT HOME INDEPENDENTLY; PT EITHER COULD NOT OR WOUND NOT TELL CM WHERE HE HAS BEEN LIVING. PT REPORTS HE WAS PUT IN A LONG-TERM IN [facility] FROM THE OTHER HOSPITAL AN D IT WAS 2 1/2 HOURS AWAY FROM HOME, HE COULD NOT SEE HIS FAMILY AND THAT "JUST WON'T WORK." PT REPORTS HE WAS THERE FOR ONE MONTH AND LEFT "THE OTHER DAY." PT REPORTS "I CAME HOME". WHEN PRESSED FOR WHERE HE HAS BEEN LIVING, PT STILL WOULD NOT TELL CM WHERE HE HAS BEEN LIVING. PT DID INFORM CM HE HAS NOT BEEN LIVING WITH HIS DAUGHTER ROMA. PT WOULD NOT OR COULD NOT RECALL WHO PICKED HIM UP FROM THE LONG-TERM STATING "ALL I KNOW IF I CAME HOME." . PT HAS A CANE WITH NO MEDICAL EQUIPMENT PROVIDER PREFERENCE. PT REPORTS THEY HAD HIM IN DIALYSIS IN [facility] AND THE LONG-TERM CALLED [place] [facility] TO GET IT CHANGED. PT DOES NOT KNOW IF HIS OUTPATIENT DIALYSIS WAS CHANGED. CM DISCUSSED ORDER FOR LONG-TERM PLACEMENT. PT REPORTS HE WANTS A LONG-[place]. CM ASKED PT WHY HE WASN'T PLACED IN A NUSING HOME CLOSER TO [place] TO START WITH. PT INIITALLY STATES HE DID NOT KNOW, BUT WHEN PRESSED, PT STATES THAT "NO ONE WOULD TAKE ME". CM EXPLAINED THAT DIALYSIS UNITS IN [place] AND [facility] MAY NOT ACCEPT PT EITHER. PT REFUSES TO GO BACK TO [facility] OR ANYWHERE "FAR AWAY FROM HOME". CM EXPLAINED THAT CM WILL NEED TO FIND ACCEPTING LONG-TERM AND DILAYSIS UNIT AND IF THAT WAS RECENTLY TRIED WITH NO SUCCESS, WITH [facility] BEING THE CLOSEST, THEN IT IS DOUBTFUL THAT CM WILL BE ABLE TO FIND ANYTHING ELSE CLOSER. CM EXPLAINED THAT NURSING HOMES AND LOCAL DIALYSIS UNIT MAY NOT ACCEPT DUE TO PREVIOUS NON COMPLIANCE. PT REPORTS HE HAS ALWAYS WENT TO DIALYSIS LIKE HE IS SUPPOSED TO. PT INFORMED CM THAT HE WILL GO TO A LONG-TERM IF IT IS IN THE [place] OR [facility] ONLY. PT STATES IF NOT, HE WILL GO HOME AND HAS "PLENTY OF FAMILY TO STAY WITH IN [place]." CM DISCUSSED HAVING PT SIGN CONSENT FOR CM TO ATTEMPT TO LOCATE THE CLOSEST NURSING FACILITY THAT MAY ACCEPT PT, PT AGREED AND SIGNED THE CONSENT. PT AGAIN STATES THAT HE IS NOT GOING TO A LONG-TERM UNLESS IT IS CLOSE TO HIS HOME IN [place]. CM WILL DISCUSS WITH PATIENT PATHWAYS COORDINATOR CHIRAG MILES AND SEND REFERRALS TO LOCAL NURSING FACILITIES ([facility] AND [facility]) TO ATTEMPT PLACEMENT. Learning Administrator: Jeff Christopher DCPIA - Discharge Planning Initial Assessment Updated by [id number]: Jeff Christopher on 09/19/18 6:00 pm * Is the patient Alert and Oriented? Yes * How many steps to enter\\exit or inside your home? NONE * PCP DR MCKEON IN [place] * Pharm[facility] IN [place] * Preadmission Environment Home Alone * ADLs Independent * Equipment Cane * Other Equipment NO MEDICAL EQUIPMENT PROVIDER PREFERENCE * List name and contact numbers for known caregivers / representatives who currently or will assist patient after discharge: ROMA OH DTR, JOCELYN GILMORE, MIRACLE LUGO, * Verbal permission to speak to the caregivers and representatives has been obtained from the patient. Yes * Community resources currently utilized Other * Please name any agencies selected above. OUTPATIENT DIALYSIS IN [facility], PATIENT CANNOT REMEMBER THE DAYS AND TIME OF SCHEDULED TREATMENT * Additional services required to return to the preadmission environment? Yes * Can the patient safely return to the preadmission environment? No * Has this patient been hospitalized within the prior 30 days at any hospital? No Coverage Notice Reviewer: [id number] - Jeff Christopher Notice Issued Date-Time: 09/19/2018 14:45 Notice Type: Patient Choice Letter Notice Delivered To: Patient Relationship to Patient: Learning Disabled Teacher Name: Delivery Method: HAND - Hand Delivered Arlette Days: Prior Verbal Notification: Recipient Understood Notice: Yes Recipient Signature: Yes Med Rec Note Co-signed by Attending: Coverage Notice Comment: ANY NURSING FACILITY IN [facility] THAT WILL ACCEPT PT. Last DP export: 09/25/18 7:39 a Patient Name: ODETTE OH Page [id number] at 0846 All edits/amendments must be made on the electronic document DICTATION DATE: 09/25/18844 PLACEMENT SPECIALIST: [facility] 09/25/18844 RPT#: [id number] DC DATE:09/23/18 STATUS: DIS [facility] [address] [place] [address] END OF REPORT
--- NOTE | 2018-09-25 10:06 | MORECARE ---
CASE MANAGEMENT DISCHARGE SUMMARY PATIENT: ODETTE OH UNIT: [id number] ADM DATE: 09/18/18 AGE: 57 : 64 SEX: M ROOM/BED: D.2111 AUTHOR: MARU,DOC PHYSICIAN: REFERRING PHYSICIAN: REGINA HIGGINS MD DATE OF SERVICE: 09/25/18 Discharge Plan Patient Name: ODETTE OH Facility: [facility]:[place] : 1960 Planned Disposition: Home Anticipated Discharge Date: 09/23/18 Discharge Date: 09/23/2018 Expected LOS: 5 Initial Reviewer: [email or web address] Initial Review Date: 09/19/2018 Generated: 09/25/18 11:06 am Comments DCP- Discharge Planning Updated by [id number]: Jeff Christopher on 09/25/18 9:[address] Patient Name: ODETTE OH Encounter No: [id number] : 1960 Primary Insurance: MEDICAID [place] Anticipated DC Date: 09-23-2018 Planned Disposition: LEFT AGAINST MEDICAL ADVICE DCP follow-up note: CM REVIEWED CHART, PT LEFT AGAINST MEDICAL ADVICE ON 09-23-18. Jeff Christopher, CASE MANAGEMENT Appended by Jeff Christopher on 09/25/2018 10:02 DATE PITTER: CM RECEIVED CALL FROM SINCERE VALIENTE OF [facility] ADULT PROTECTIVE SERVICES, WHO IS NOT SURE THERE IS ANYTHING THEY WILL BE ABLE TO DO ANTHING WITH THIS PATIENT. CM ADVISED PT LEFT AGAINST MEDICAL ADVICE 09-23-18. SINCERE WILLATTEMPT FOLLOW UP WITH PT IN THE COMMUNITY, REQUESTED REFERRAL INFORMATION BE FAXED TO HER AT [phone], CM FAXED REFERRAL INFORMATION TO [facility] ADULT PROTECTIVE SERVICES WORKER SINCERE VALIENTE REQUESTED. SUSI OCASIO DCP- Discharge Planning Updated by [email or web address]: Jeff Christopher on 09/21/18 10:[address] Patient Name: ODETTE OH Encounter No: [id number] : 1960 Primary Insurance: MEDICAID [place] Anticipated DC Date: Planned Disposition: Home DCP follow-up note: CM SPOKE TO PT IN ROOM REGARDING DISCHARGE PLANNING AND NEEDS. PT UPSET WITH THE PENITENTIARY IN [facility] REPORTING THEY ARE LYING ABOUT EVERYTHING. CM DISCUSSED INABILITY TO SEEK PENITENTIARY PLACEMENT IN [place] OR [place] DUE TO NO ACCEPTING DIALYSIS CLINIC. PT UPSET ABOUT THAT ALSO. CM EXPLAINED THAT PT WILL NEED TO SHOW COMPLIANCE WITH OUTPATIENT TREATMENT AND FOLLOW DOCTORS ORDERS TO INCLUDE NOT USING DRUGS IN ORDER TO DEVELOP TRUST WITH HIS PROVIDERS IF HE HOPES TO BE ACCEPTED IN LOCAL DIALYSIS UNITS. PT TALKING VERY LOUDLY AND DID NOT APPEAR TO BE LISTENING TO CM. CM ASKED PT ABOUT PENITENTIARY PLACEMENT IN [place] OR [facility]. PT REFUSED. PT STATES HE IS NOT GOING TO A PENITENTIARY OUTSIDE OF THE [facility] AREA. PT STATES THE PENITENTIARY WAS SUPPOSED TO SET HIM UP WITH THE [place] [facility]. CM EXPLAINED THAT THE PENITENTIARY STATED THAT PT REFUSED TO TAKE PART IN DISCHARGE PLANNING PRIOR TO LEAVING THE FACILITY, TOLD STAFF AT PENITENTIARY THAT HE (PT) STATED HE WOULD ARRANGE HIS OWN DIALYSIS AND REFUSED TO HAVE DISCHARGE INSTRUCTIONS EXPLAINED TO HIM. PT REPORTS THAT THEY ARE LYING. CM EXPLAINED THAT HE IS CURRENTLY STILL ASSIGNED TO THE [facility] UNIT FOR DIALYSIS AND THAT NO OTHER UNIT WILL TAKE HIM WITHOUT PRIOR ACCEPTANCE. PT STATES HE IS NOT GOING OUTSIDE [place] OR [place] AREA TO PENITENTIARY, PLANS TO DISCHARGE HOME WITH HIS NEPHEW, BIMAL, AT [address] IN [place]. PT STATES HE WANTS CLOSEST DILAYSIS UNIT TO [place] HE CAN GET HE IS NOT GOING TO [facility] TO GET DIALYSIS. PT STATES IF HE CANNOT GET A UNIT CLOSE TO [place], HE WILL JUST GO HOME AND . PT PLANS TO USE MEDICAID TRANSPORT CM LEFT MESSAGE FROM CHIRAG OF [facility] WITH PT'S REQUEST. CM CALLED MEDICAID TRANSPORTATION IN [place], , SPOKE TO CYNTHIA WHO CHECKED WITH PEDIATRIC ALLERGIST AND INFORMED CM THAT PT IS STILL ELIGIBLE FOR MEDICAID TRANSPORTATION IN [place] AND HAS NOT BEEN BANNED. CM CALLED ADULT PROTECTIVE SERVICES, , PROVIDED REFERRAL ALLEDGING SELF NEGLECT AND DRUG USE BY MEDICALLY FRAGILE PERSON. CASE # [id number]. PT IS ELIGIBLE FOR MEDICAID TRANSPORT IN [place]. PT REFUSES PENITENTIARY PLACEMENT OUTSIDE OF [facility]. PT REPORTS PLAN TO RETURN HOME WITH NEPHEW, BIMAL, IN [place]. Jeff Christopher, CASE MANAGEMENT DCP- Discharge Planning Updated by [id number]: Jeff Christopher on 09/20/18 4:[address] Patient Name: ODETTE OH Encounter No: [id number] : 1960 Primary Insurance: [place]ID [place] Anticipated DC Date: Planned Disposition: Nursing Facility CAIO Cert External Planned Provider: FIRST ACCEPTING PROVIDER FOR LONGTERM MEDICAID BED DCP follow-up note: CM SPOKE TO CHIRAG OF [facility]. IN JULY 2018, WHILE AT [facility], PT WAS DECLINED AT [facility], [place], [facility], [facility], [facility] (ENTIRE GROUP OF 37 HOMES IN THE [facility] [place] AND [facility] THEY DON'T ACCEPT DIALYSIS PATIENTS. [facility] WAS ABLE TO OBTAIN PLACEMENT AT [facility] IN [place], [place]. MEDICAID TRANSPORTATION IN [place] WILL NO LONGER TRANSPORT PT TO AND FROM DIALYSIS OF JUNE 2018. WHILE AT THE [facility], PT HAD EPISODES OF AGRESSION AND THREATS TOWARD STAFF AND OTHER RESIDENTS. PT HAD THE POLICE CALLED ON HIM DUE TO ALLEGATION OF THEFT FROM ANOTHER RESIDENT AND GOING OUTSIDE TO SMOKE, USING DOOR CODE HE WAS NOT SUPPOSED TO HAVE TO EXIT AND THREATENED STAFF WHEN INFORMED HE WAS NOT TO BE LEAVING THE BUILDING, HAVING THE DOOR CODE OR SMOKING. PT REFUSED STAFF ASSISTANCE IN DISCHARGE PLANNING. PT'S DAUGHTER WAS CONTACTED BY FACILITY ON 09-02 AND INFORMED FACILITY PT CANNOT RETURN TO HER HOME. PT CONTACTED HIS NEPHEW BIMAL, [address], [address], [facility] FOR ASSESSMENT RN, REPORTED THIS TO BE HIS DISCHARGE ADDRESS, LEFT FACILITY REFUSING TO ALLOW THE FACILITY TO ARRANGE OUTPATIENT DIALYSIS SERVICES REPORTING HE WILL DO IT HIMSELF. PT DID SIGN THE DISCHARGE DOCUMENTS BUT REFUSED TO HAVE THEM EXPLAINED TO HIM. PT CANNOT RETURN TO THE PENITENTIARY AND THE PENITENTIARY SUGGESTS THAT ADULT PROTECTIVE SERVICES BE CONTACTED. CM WILL CALL [facility]ULT [facility] WITH ALLEGATIONS OF SELF NEGLECT. CM WILL CONTINUE TO TRY TO WORK WITH PT AND CONTINUE TO ATTEMPT TO FIND PENITENTIARY PLACEMENT THAT PT WILL AGREE TO. CM WILL NOT BE ABLE TO PLACE PT IN THE [place] OR [place] AREA DIALYSIS UNITS WILL NOT ACCEPT PATIENT. Jeff Christopher, CASE MANAGEMENT DCP- Discharge Planning Updated by [email or web address]: Jeff Christopher on 09/19/18 5:[address] Patient Name: ODETTE OH Admission Status: ER Accout number: [id number] Admission Date: 09-18-2018 : 1960 Admission Diagnosis: Attending: REGINA HIGGINS Current LOS: 1 Anticipated DC Date: Planned Disposition: Nursing Facility CAIO Cert Primary Insurance: MEDICAID [place] PLANNED EXTERNAL PROVIDER: TO BE DETERMINED, LONGTERM CARE MEDICAID BED Discharge Planning Comments: CM RECEIVED ORDER TO ASSIST WITH PENITENTIARY PLACEMENT. CM MET WITH PT IN ROOM TO DISCUSS DISCHARGE PLANNING AND NEEDS. PT REPORTS LIVING AT HOME INDEPENDENTLY; PT EITHER COULD NOT OR WOUND NOT TELL CM WHERE HE HAS BEEN LIVING. PT REPORTS HE WAS PUT IN A PENITENTIARY IN [facility] FROM THE OTHER HOSPITAL AN D IT WAS 2 1/2 HOURS AWAY FROM HOME, HE COULD NOT SEE HIS FAMILY AND THAT "JUST WON'T WORK." PT REPORTS HE WAS THERE FOR ONE MONTH AND LEFT "THE OTHER DAY." PT REPORTS "I CAME HOME". WHEN PRESSED FOR WHERE HE HAS BEEN LIVING, PT STILL WOULD NOT TELL CM WHERE HE HAS BEEN LIVING. PT DID INFORM CM HE HAS NOT BEEN LIVING WITH HIS DAUGHTER ROMA. PT WOULD NOT OR COULD NOT RECALL WHO PICKED HIM UP FROM THE PENITENTIARY STATING "ALL I KNOW IF I CAME HOME." . PT HAS A CANE WITH NO MEDICAL EQUIPMENT PROVIDER PREFERENCE. PT REPORTS THEY HAD HIM IN DIALYSIS IN [facility] AND THE PENITENTIARY CALLED [place] [facility] TO GET IT CHANGED. PT DOES NOT KNOW IF HIS OUTPATIENT DIALYSIS WAS CHANGED. CM DISCUSSED ORDER FOR PENITENTIARY PLACEMENT. PT REPORTS HE WANTS A PENITENTIARY CLOSE TO [place] OR [place]. CM ASKED PT WHY HE WASN'T PLACED IN A NUSING HOME CLOSER TO [place] TO START WITH. PT INIITALLY STATES HE DID NOT KNOW, BUT WHEN PRESSED, PT STATES THAT "NO ONE WOULD TAKE ME". CM EXPLAINED THAT DIALYSIS UNITS IN [place] AND SURROUNDING AREA MAY NOT ACCEPT PT EITHER. PT REFUSES TO GO BACK TO [facility] OR ANYWHERE "FAR AWAY FROM HOME". CM EXPLAINED THAT CM WILL NEED TO FIND ACCEPTING PENITENTIARY AND DILAYSIS UNIT AND IF THAT WAS RECENTLY TRIED WITH NO SUCCESS, WITH [facility] BEING THE CLOSEST, THEN IT IS DOUBTFUL THAT CM WILL BE ABLE TO FIND ANYTHING ELSE CLOSER. CM EXPLAINED THAT NURSING HOMES AND LOCAL DIALYSIS UNIT MAY NOT ACCEPT DUE TO PREVIOUS NON COMPLIANCE. PT REPORTS HE HAS ALWAYS WENT TO DIALYSIS LIKE HE IS SUPPOSED TO. PT INFORMED CM THAT HE WILL GO TO A PENITENTIARY IF IT IS IN THE [place] OR [place] AREA ONLY. PT STATES IF NOT, HE WILL GO HOME AND HAS "PLENTY OF FAMILY TO STAY WITH IN [place]." CM DISCUSSED HAVING PT SIGN CONSENT FOR CM TO ATTEMPT TO LOCATE THE CLOSEST NURSING FACILITY THAT MAY ACCEPT PT, PT AGREED AND SIGNED THE CONSENT. PT AGAIN STATES THAT HE IS NOT GOING TO A PENITENTIARY UNLESS IT IS CLOSE TO HIS HOME IN [place]. CM WILL DISCUSS WITH [facility] COORDINATOR CHIRAG MILES AND SEND REFERRALS TO LOCAL NURSING FACILITIES ([facility] AND [facility] ARE[facility]) TO ATTEMPT PLACEMENT. Seafood Processor: Jeff Christopher DCPIA - Discharge Planning Initial Assessment Updated by [id number]: Jeff Christopher on 09/19/18 6:00 pm * Is the patient Alert and Oriented? Yes * How many steps to enter\\exit or inside your home? NONE * PCP DR MCKEON IN [place] * Pharmacy [facility] IN [place] * Preadmission Environment Home Alone * ADLs Independent * Equipment Cane * Other Equipment NO MEDICAL EQUIPMENT PROVIDER PREFERENCE * List name and contact numbers for known caregivers / representatives who currently or will assist patient after discharge: ROMA OH DTR, JOCELYN GILMORE, MIRACLE LUGO, * Verbal permission to speak to the caregivers and representatives has been obtained from the patient. Yes * Community resources currently utilized Other * Please name any agencies selected above. OUTPATIENT DIALYSIS IN [facility], PATIENT CANNOT REMEMBER THE DAYS AND TIME OF SCHEDULED TREATMENT * Additional services required to return to the preadmission environment? Yes * Can the patient safely return to the preadmission environment? No * Has this patient been hospitalized within the prior 30 days at any hospital? No External Providers External Provider: OTHER-OTHER Next Contact Date: 09/25/2018 Service Request Date: Service Type: Resolution: Reviewer: Comments: Coverage Notice Reviewer: [id number] - Jeff Christopher Notice Issued Date-Time: 09/19/2018 14:45 Notice Type: Patient Choice Letter Notice Delivered To: Patient Relationship to Patient: Appliquer Name: Delivery Method: HAND - Hand Delivered Arlette Days: Prior Verbal Notification: Recipient Understood Notice: Yes Recipient Signature: Yes Med Rec Note Co-signed by Attending: Coverage Notice Comment: ANY NURSING FACILITY IN [facility] THAT WILL ACCEPT PT. Last DP export: 09/25/18 7:46 a Patient Name: ODETTE OH Page 85009 at 1006 All edits/amendments must be made on the electronic document DICTATION DATE: 09/25/18 1005 STRINGS TEACHER: LUH 09/25/18 1005 RPT#: [id number] DC DATE:09/23/18 STATUS: DIS IN [facility] [address] [place] [address] END OF REPORT
== END 2018-09-23 16:40 | disposition home or self-care (01) | DRG 252 ==
LOC: D.ER 21:50 → D.ICU 09-18 00:12 → D.M2 09-18 00:12 → D.EDHOLD 09-18 00:12 → D.ICU 09-18 00:44 → D.M2 09-18 18:27
PROVIDERS: Family Medicine; Internal Medicine Nephrology; Radiology Vascular & Interventional Radiology; ADMIT Internal Medicine
PROC: 5A1D70Z Performance of Urinary Filtration, Intermittent, Less than 6 Hours Per Day (ICD-10-PCS; 2018-09-18)
PROC: 05763ZZ Dilation of Left Subclavian Vein, Percutaneous Approach (ICD-10-PCS; principal; 2018-09-21 13:30)
DX: I16.0 Hypertensive urgency (principal); N18.6 End stage renal disease; I87.1 Compression of vein; I31.9 Disease of pericardium, unspecified; I13.2 Hypertensive heart and chronic kidney disease with heart failure and with stage 5 chronic kidney disease, or end stage renal disease; I87.309 Chronic venous hypertension (idiopathic) without complications of unspecified lower extremity; E87.5 Hyperkalemia; Z99.2 Dependence on renal dialysis; Z91.15 Patient's noncompliance with renal dialysis; D64.9 Anemia, unspecified; I50.9 Heart failure, unspecified; D63.8 Anemia in other chronic diseases classified elsewhere; B19.20 Unspecified viral hepatitis C without hepatic coma

== ENCOUNTER 2018-10-14 02:17 | Inpatient (IN) | payer MEDICAID ==
[2018-10-14] VITALS (65 sets, daily range): BP systolic 111–200; BP diastolic 46–117; Ht 177.8 cm; Wt 74.1 kg
[~2018-10-14] VITALS: Ht 177.8 cm; Wt 74.1 kg
[2018-10-14 02:54] LABS: BASOPHILS 0.1 % (0-2); EOSINOPHILS 0 % (0-7); HEMATOCRIT 28.9 % (42.0-54.0); HEMOGLOBIN 9.3 g/dL (13.5-17.5); LYMPHOCYTES 12.2 % (15-50); MCH 29.4 pg (26.0-34.0); MCHC 32.2 g/dL (31.0-37.0); MCV 91.5 fL (80.0-100.0); MEAN PLATELET VOLUME 10.3 fL (7.4-10.4); MONOCYTES 4.5 % (2-11); NEUTROPHILS 82.2 % (40-80); RBC 3.16 10x6/uL (4.20-6.10); RDW 18.7 % (11.5-14.5); WBC 7.2 10x3/uL (4.8-10.8)
[2018-10-14 02:55] LABS: PLATELET COUNT 139 10x3/uL (130-400)
[2018-10-14 03:10] LABS: APTT 36.7 SECONDS (22.8-39.4); INR 1.35 (0.85-1.17); PROTIME 16.2 SECONDS (11.6-15.0)
[2018-10-14 03:28] LABS: ALBUMIN 3.8 g/dL (3.4-5.0); ALKALINE PHOSPHATASE 84 U/L (46-116); ALT (SGPT) 20 U/L (10-68); BILIRUBIN - TOTAL 0.58 mg/dL (0.2-1.3); CALCIUM 7.4 mg/dL (8.5-10.1); CHLORIDE - SERUM 103 mmol/L (98-107); CKMB 10.8 U/L (0.0-3.6); CREATINE KINASE 367 UL (21-232); CREATININE - SERUM 18.4 mg/dL (0.6-1.3); GLUCOSE 94 mg/dL (74-106); MAGNESIUM - SERUM 2.6 mg/dL (1.8-2.4); PROTEIN - SERUM 9.8 g/dL (6.4-8.2); SODIUM 137 mmol/L (136-145); THYROID STIMULATING HORMONE 3.11 uIU/mL (0.36-3.74); eGFR NON AFRICAN AMERICAN 3 mL/min (90-120)
[2018-10-14 03:37] LABS: CALC OSMOLALITY 329 mosm/kg (275-300); POTASSIUM - SERUM 7.7 mmol/L (3.5-5.1); TROPONIN-I 0.203 ng/mL (0.000-0.060); UREA NITROGEN 169 mg/dL (7-18)
[2018-10-14 03:38] LABS: CARBON DIOXIDE 9.9 mmol/L (21.0-32.0)
--- NOTE | 2018-10-14 05:55 | NUR ---
PATIENT ARRIVED TO UNIT 0510. ADMISSIONS ASSESSMENT COMPLETE. UNABLE TO GET COMPLETE HISTORY. PLEASE SEE ASSESSMENT FLOW SHEET FOR FULL DETAILS. OBTUNDED UPON ARRIVAL. FSBS 50, D50 WAS ORDERED AND GIVEN, STARTED TO OPEN EYES AND ANSWER SOME QUESTIONS/FOLLOW SOME COMMANDS. FSBS RECHECK 104. TITRATING CARDENE TO EFFECT. WILL CONTINUE PLAN OF CARE.
[2018-10-14 06:03] LABS: BASOPHILS 0.1 % (0-2); EOSINOPHILS 0 % (0-7); HEMATOCRIT 24.1 % (42.0-54.0); HEMOGLOBIN 7.9 g/dL (13.5-17.5); IMMATURE GRANULOCYTES 1.8 % (0-5); LYMPHOCYTES 14.4 % (15-50); MCH 29.4 pg (26.0-34.0); MCHC 32.8 g/dL (31.0-37.0); MCV 89.6 fL (80.0-100.0); MEAN PLATELET VOLUME 10.2 fL (7.4-10.4); MONOCYTES 10.8 % (2-11); NEUTROPHILS 72.9 % (40-80); PLATELET COUNT 145 10x3/uL (130-400); RBC 2.69 10x6/uL (4.20-6.10); RDW 18.8 % (11.5-14.5); WBC 7.9 10x3/uL (4.8-10.8)
[2018-10-14 06:45] LABS: ANION GAP 32.5 mmol/L (8-16); BILIRUBIN - TOTAL 0.47 mg/dL (0.2-1.3); CALCIUM 7.1 mg/dL (8.5-10.1); CREATININE - SERUM 18.6 mg/dL (0.6-1.3); MAGNESIUM - SERUM 2.5 mg/dL (1.8-2.4); POTASSIUM - SERUM 6.3 mmol/L (3.5-5.1)
[2018-10-14 06:46] LABS: CARBON DIOXIDE 7.8 mmol/L (21.0-32.0)
--- NOTE | 2018-10-14 06:54 | NUR ---
PAGED DR ANDRADE TO GIVE UPDATE UPON ADMISSION.
--- NOTE | 2018-10-14 06:56 | NUR ---
DR ANDRADE, ORDERS RECIEVED.
--- NOTE | 2018-10-14 07:30 | NUR ---
DIALYSIS IN PROGRESS. PATIENT DID NOT WAKE UP TO VERBAL STIMULI THEN COUGHED OPENED EYES LOOKED AT NURSE. DID NOT ANSWER ANY QUESTIONS. RETURNED TO SLEEP, STILL WAKES UP AT TIMES AND COUGHS. RESP DEEP AND REGULAR USING ABD MUSCLES TO BREATH. ON ROOM AIR. ABD SOFT WITH BOWEL SOUNDS. IV RIGHT AC WITHOUT REDNESS OR SWELLING. INFUSING WITH LAURA 10 MG HOUR.
--- NOTE | 2018-10-14 08:58 | NUR ---
AWAKES TO STIMULATION NODES HEAD THAT HE KNOWS HE IS IN THE HOSPITAL. REORIENTATED TO WHERE AND WHY HE IS HERE. NODES HEAD NO THAT HE DID NOT KNOW HE WAS RECEIVING DIALYSIS. BLOOD PRESSURE COMING DOWN WITH DIALYSIS.
--- NOTE | 2018-10-14 09:45 | NUR ---
CARDENE GTT WEANED OFF. DIALYSIS CONTINUES. STILL WAKES UP TO PHYSCIAL STIMULATION. NON VERBAL. OXYGEN 2 LITERS PER NC APPLIED DESAT INTO UPPER 80'S.
--- NOTE | 2018-10-14 10:51 | NUR ---
DIALYSIS COMPLETED. DIALYSIS NURSE REMOVING NEEDLES. NO CHANGE IN PATIENT
--- NOTE | 2018-10-14 12:24 | NUR ---
CARDENE RESTARTED AT 5 MG HOUR, FOR SYS BP GREATER THAN 180. PATIENT WAKES UP TO PHYSICAL STIMULATION. RETURNS TO SLEEP
--- NOTE | 2018-10-14 12:33 | NUR ---
WAKING UP EASIER. KNOWS HE IS IN THE HOSPITAL THOUGHT HE WAS IN [place]. REORIENTATED. OBEYING COMMANDS MOVES ALL EXTREMITIES ON REQUEST.
--- NOTE | 2018-10-14 12:38 | NUR ---
DR. THORNTON HERE STATES HE IS NOT ADMITTING PHYSICAN ON THIS PATIENT HE IS A NEPHROLOGY PATIENT. ADMIT TO DR. PRATT. ADMISSIONS NOTIFIED
--- NOTE | 2018-10-14 14:00 | NUR ---
dr. Edwards here update given.
--- NOTE | 2018-10-14 15:31 | NUR ---
repositioned. awakes to physical stimulation knows he is in hospital and thinks he is still in [place]. squeeze hands and moves feet to request. did not turn self on request. resp deep and regular. no distress. still coughing at times.
[2018-10-14 15:57] LABS: BASOPHILS 0.3 % (0-2); EOSINOPHILS 0.1 % (0-7); HEMATOCRIT 24.8 % (42.0-54.0); HEMOGLOBIN 8.3 g/dL (13.5-17.5); IMMATURE GRANULOCYTES 1.3 % (0-5); LYMPHOCYTES 8.3 % (15-50); MCH 29.3 pg (26.0-34.0); MCHC 33.5 g/dL (31.0-37.0); MCV 87.6 fL (80.0-100.0); MEAN PLATELET VOLUME 9.6 fL (7.4-10.4); MONOCYTES 9.2 % (2-11); NEUTROPHILS 80.8 % (40-80); PLATELET COUNT 166 10x3/uL (130-400); RBC 2.83 10x6/uL (4.20-6.10); RDW 18.2 % (11.5-14.5); WBC 7.8 10x3/uL (4.8-10.8)
[2018-10-14 16:00] LABS: CALCIUM 7.4 mg/dL (8.5-10.1)
[2018-10-14 16:01] LABS: ANION GAP 26.1 mmol/L (8-16); CARBON DIOXIDE 17.4 mmol/L (21.0-32.0); CREATININE - SERUM 11.2 mg/dL (0.6-1.3); POTASSIUM - SERUM 4.5 mmol/L (3.5-5.1)
--- NOTE | 2018-10-14 18:00 | NUR ---
repositioned. waking more when stimulated, wanted to know what we were doing. tried to get him to turn himself over, but he did not. knows he is in the hospital still thinks he is in [place]. stated he needs to go home. returned to sleep when left alone. iv right ac infusing with cardene at 9 mg/hour. 45 ml hour. monitor sr.
--- NOTE | 2018-10-14 19:00 | NUR ---
REPORT RECEIVED ASSESSMENT COMPLETED. SEE FLOWSHEET
--- NOTE | 2018-10-14 21:00 | NUR ---
TITRATING CARDENE GTT TOLERATED. WILL CONTINUE TO MONITOR
--- NOTE | 2018-10-14 23:00 | NUR ---
REASSESSMENT DONE SEE FLOW SHEET. VSS. CARDENE TITRATED OFF 2200.
[2018-10-15] VITALS (17 sets, daily range): BP systolic 114–178; BP diastolic 59–98
--- NOTE | 2018-10-15 01:00 | NUR ---
PT RESTING IN BED VSS. CARDENE GTT REMAINS OFF WILL CONTINUE TO MONITOR
[2018-10-15 05:51] LABS: BASOPHILS 0 % (0-2); EOSINOPHILS 0.3 % (0-7); HEMOGLOBIN 7.9 g/dL (13.5-17.5); IMMATURE GRANULOCYTES 0.2 % (0-5); LYMPHOCYTES 13.1 % (15-50); MCH 29.2 pg (26.0-34.0); MCHC 32.9 g/dL (31.0-37.0); MCV 88.6 fL (80.0-100.0); MEAN PLATELET VOLUME 9.3 fL (7.4-10.4); MONOCYTES 8.3 % (2-11); NEUTROPHILS 78.1 % (40-80); PLATELET COUNT 138 10x3/uL (130-400); RBC 2.71 10x6/uL (4.20-6.10); RDW 18.7 % (11.5-14.5); WBC 6.7 10x3/uL (4.8-10.8)
[2018-10-15 06:31] LABS: ALBUMIN 2.8 g/dL (3.4-5.0); ANION GAP 20.9 mmol/L (8-16); BILIRUBIN - TOTAL 0.55 mg/dL (0.2-1.3); CALCIUM 7.1 mg/dL (8.5-10.1); CARBON DIOXIDE 18.7 mmol/L (21.0-32.0); CREATININE - SERUM 11.8 mg/dL (0.6-1.3); POTASSIUM - SERUM 4.6 mmol/L (3.5-5.1); PROTEIN - SERUM 7.3 g/dL (6.4-8.2)
--- NOTE | 2018-10-15 07:32 | NUR ---
AWAKES EASILY TO VERBAL STIMULI SKIN WARM AND DRY. KNOWS HE IS IN [place]. AND KNOWS WHY HE IS HERE. NO DISTRESS. ON ROOM AIR. REPLACED BLOOD PRESSURE CUFF. RIGHT AC SALINE LOCK INTACT. MONITOR SR.
--- NOTE | 2018-10-15 07:38 | NUR ---
UP TO BATHROOM. UNSTEADY ON FEET, NEEDS ASSISTANCES TO AMBULATE. STATES THAT HE DOES MAKE URINE.
--- NOTE | 2018-10-15 08:30 | NUR ---
PO FLUIDS GIVEN, DID GET NAUSEA AFTER WARDS.
--- NOTE | 2018-10-15 09:54 | NUR ---
NAPPING AT INTERVALS. NO DISTRESS.
--- NOTE | 2018-10-15 10:32 | NUR ---
PUDDING GIVEN PO MEDS TAKEN
--- NOTE | 2018-10-15 12:00 | NUR ---
LUNCH TRAY SERVED. ATE POORLY. LESS THAN 25%.
--- NOTE | 2018-10-15 13:15 | NUR ---
ARRIVE TO ROOM VIA WHEELCHAIR FROM CVICU. REPORT FROM OLLIE QUINONEZ. AMBULATES TO BED FROM WHEELCHAIR. GAIT STEADY. REQUEST FOR LIGHTS AND ROOM DOOR TO BE SHUT FOR RESTING. CONTINUE PLAN OF CARE AND SAFETY PRECAUTIONS.
--- NOTE | 2018-10-15 14:10 | NUR ---
REPORT CALLED TO [facility] PATIENT TRANSFERED TO ROOM 2127 PER WHEELCHAIR. TOLERATED WELL
--- NOTE | 2018-10-15 19:42 | NUR ---
EVENING ROUNDS COMPLETED. REPORT RECEIVED. PT SITTING UP IN BED WITH EYES OPEN, RR EVEN AND UNLABORED. BED IN LOW POSITION. NO S/S OF DISTRESS NOTED. INTRODUCED SELF TO PT. ADMINISTERED ORDERED ANALGESIC TO PT. PT STATES PAIN IN RIGHT SIDE AT A 8 ON A SCALE OF 0-10. PT DENIES FURTHER NEEDS AT THIS TIME. CALL LIGHT IN REACH. WILL CTM.
--- NOTE | 2018-10-16 02:17 | NUR ---
I have reviewed this patient and I concur with the Shift Assessment completed by the Licensed Practical Nurse today this shift.
--- NOTE | 2018-10-16 03:09 | NUR ---
ADMINISTERED ORDERED ANALGESIC FOR COMPLAINTS OF PAIN PT STATES PAIN OF A 6 ON A SCALE OF 0-10. PT STATES PAIN IN RIGHT SIDE OF CHEST IN [place]
[2018-10-16 03:45] VITALS: BP 135/88
[2018-10-16 08:03] VITALS: BP 144/100
[2018-10-16 08:32] LABS: BASOPHILS 0 % (0-2); EOSINOPHILS 0.4 % (0-7); HEMATOCRIT 24.5 % (42.0-54.0); IMMATURE GRANULOCYTES 0.6 % (0-5); LYMPHOCYTES 21.8 % (15-50); MCHC 32.7 g/dL (31.0-37.0); MCV 88.8 fL (80.0-100.0); MONOCYTES 11.2 % (2-11); PLATELET COUNT 115 10x3/uL (130-400); RBC 2.76 10x6/uL (4.20-6.10); RDW 18.7 % (11.5-14.5); WBC 5.4 10x3/uL (4.8-10.8)
--- NOTE | 2018-10-16 08:55 | NUR ---
ASSESSMENT COMPLETE. PATIENT UP AD LANDRY. PATIENT REQUESTED PAIN MEDICATION. WILL CONTINUE TO MONITOR.
[2018-10-16 08:58] LABS: ALBUMIN 2.8 g/dL (3.4-5.0); ANION GAP 24.9 mmol/L (8-16); BILIRUBIN - DIRECT 0.18 mg/dL (0.00-0.30); BILIRUBIN - INDIRECT 0.2 mg/dL (0.00-1.00); BILIRUBIN - TOTAL 0.38 mg/dL (0.2-1.3); CARBON DIOXIDE 18.1 mmol/L (21.0-32.0); CREATININE - SERUM 13.3 mg/dL (0.6-1.3); PROTEIN - SERUM 7.4 g/dL (6.4-8.2)
[2018-10-16 09:01] LABS: CALCIUM 6.4 mg/dL (8.5-10.1)
--- NOTE | 2018-10-16 09:30 | NUR ---
PATIENT TRANSPORTED TO DIALYSIS VIA BED BY STAFF
--- NOTE | 2018-10-16 13:50 | NUR ---
PATIENT RETURNED FROM DIALYSIS VIA BED WITH STAFF.
--- NOTE | 2018-10-16 14:09 | NUR ---
AGREE WITH MANAGER PERSONAL ASSESSMENT
[2018-10-16 15:40] VITALS: BP 120/71
--- NOTE | 2018-10-16 18:23 | NUR ---
PATIENT HAS NO COMPLAINTS AT THIS TIME. NO DISTRESS NOTED.
[2018-10-16 20:00] VITALS: BP 146/80
--- NOTE | 2018-10-16 21:36 | NUR ---
INTRODUCED SELF TO PATIENT, PATIENT EXPRESSING PAIN 10/10, GAVE TRAMADOL WITH NIGHT TIME MEDS. PATIENT RESTING QUIETLY, RESP EVEN AND UNLABORED.
[2018-10-17] VITALS: BP 133/81; BP 134/78
[2018-10-17 04:00] VITALS: BP 142/88
--- NOTE | 2018-10-17 04:11 | NUR ---
PATIENT RESTING QUIETLY WITH EYES CLOSED, RESP EVEN AND UNLABORED. BED IN LOWEST POSITION, CALL LIGHT IN REACH.
[2018-10-17 05:44] LABS: BASOPHILS 0 % (0-2); EOSINOPHILS 0.2 % (0-7); HEMATOCRIT 24.1 % (42.0-54.0); HEMOGLOBIN 7.8 g/dL (13.5-17.5); IMMATURE GRANULOCYTES 0.4 % (0-5); LYMPHOCYTES 11.5 % (15-50); MCH 29.2 pg (26.0-34.0); MCHC 32.4 g/dL (31.0-37.0); MCV 90.3 fL (80.0-100.0); MEAN PLATELET VOLUME 9.3 fL (7.4-10.4); MONOCYTES 10.1 % (2-11); NEUTROPHILS 77.8 % (40-80); PLATELET COUNT 100 10x3/uL (130-400); RBC 2.67 10x6/uL (4.20-6.10); RDW 18.8 % (11.5-14.5); WBC 5.6 10x3/uL (4.8-10.8)
[2018-10-17 05:51] LABS: CARBON DIOXIDE 22.5 mmol/L (21.0-32.0)
[2018-10-17 06:10] LABS: ANION GAP 20.5 mmol/L (8-16); CREATININE - SERUM 9.8 mg/dL (0.6-1.3)
[2018-10-17 06:11] LABS: CALCIUM 6.3 mg/dL (8.5-10.1)
[2018-10-17 09:57] VITALS: BP 168/91
[2018-10-17 11:39] LABS: CKMB 3.4 U/L (0.0-3.6); CREATINE KINASE 268 UL (21-232)
[2018-10-17 11:43] LABS: TROPONIN-I 0.097 ng/mL (0.000-0.060)
--- NOTE | 2018-10-17 16:59 | MORECARE ---
CASE MANAGEMENT DISCHARGE SUMMARY PATIENT: ODETTE OH UNIT: [id number] ADM DATE: 10/14/18 AGE: 58 : 64 SEX: M ROOM/BED: D.2127 AUTHOR: ETHAN MAHONEY PHYSICIAN: REFERRING PHYSICIAN: JUAN ANDRADE MD DATE OF SERVICE: 10/17/18 Discharge Plan Patient Name: ODETTE OH [facility] : 1960 Planned Disposition: Home Anticipated Discharge Date: Discharge Date: Expected LOS: Initial Reviewer: [email or web address] Initial Review Date: 10/17/2018 Generated: 10/17/18 5:58 pm DCPIA - Discharge Planning Initial Assessment Updated by [email or web address]: Jeff Christopher on 10/17/18 4:54 pm * Is the patient Alert and Oriented? Yes * How many steps to enter\exit or inside your home? NONE * PCP DR. MCKEON IN [place] * Pharmacy [facility] [place] * Preadmission Environment Home with Family * ADLs Independent * Equipment Cane * Other Equipment NO MEDICAL EQUIPMENT PROVIDER PREFERENCE * List name and contact numbers for known caregivers / representatives who currently or will assist patient after discharge: ROMA OH DTR, JOCELYN GILMORE, MIRACLE LUGO, * Verbal permission to speak to the caregivers and representatives has been obtained from the patient. No * Community resources currently utilized Other * Please name any agencies selected above. PT NEEDS OUTPATIENT DIALYSIS, HAS NO CURRENT OUTPATIENT DIALYSIS CLINIC * Additional services required to return to the preadmission environment? Yes * Can the patient safely return to the preadmission environment? Yes * Has this patient been hospitalized within the prior 30 days at any hospital? Yes Patient Name: ODETTE OH Page 74212 at 1659 All edits/amendments must be made on the electronic document DICTATION DATE: 10/17/181657 CLAIM MANAGER: LUH 10/17/181657 RPT#: [id number] DC DATE: STATUS: ADM IN [facility] [address] [place] [address] END OF REPORT
--- NOTE | 2018-10-17 17:06 | MORECARE ---
CASE MANAGEMENT DISCHARGE SUMMARY PATIENT: ODETTE OH UNIT: [id number] ADM DATE: 10/14/18 AGE: 58 : 64 SEX: M ROOM/BED: D.1110 AUTHOR: MARU,DOC PHYSICIAN: REFERRING PHYSICIAN: JUAN ANDRADE MD DATE OF SERVICE: 10/17/18 Discharge Plan Patient Name: ODETTE OH Facility: [facility]:[place] : 1960 Planned Disposition: Home Anticipated Discharge Date: Discharge Date: Expected LOS: Initial Reviewer: [email or web address] Initial Review Date: 10/17/2018 Generated: 10/17/18 6:06 pm Comments DCP- Discharge Planning Updated by [email or web address]: Jeff Christopher on 10/17/18 4:[address] Patient Name: ODETTE OH Admission Status: ER Accout number: [id number] Admission Date: 10-14-2018 : 1960 Admission Diagnosis:HYPERKALEMIA Attending: JUAN ANDRADE Current LOS: 3 Anticipated DC Date: Planned Disposition: Home Primary Insurance: MEDICAID [place] Discharge Planning Comments: CM RECEIVED ORDER TO ASSIST WITH OUTPATIENT DIALYSIS CLINIC ARRANGEMENT AND DISCHARGE PLANNING. CM NOTIFIED CHIRAG MILES OF [facility] WHO WAS ALREADY AWARE OF THE NEED AND IS SEEKING OUTPATIENT CLINIC THAT MAY ACCEPT PT FOR OUTPATIENT DIALYSIS. CM MET WITH PT IN ROOM TO DISCUSS DISCHARGE PLANNING AND NEEDS. PT REPORTS LIVING AT A FRIENDS HOME IN [place] LOCATED AT "[facility]" REPORTING IT IS AROUND THE CORNER FROM HIS DAUGHTER'S HOME. PT WILL BE RETURNING THERE AT DISCHARGE. PT REPORTS BEING INDEPENDENT IN HIS CARE AND WALKS WITH A CANE. PT REPORTS IS NOT GOING TO ANY SHELTER. PT HAS NOT BEEN TO DIALYSIS SINCE LEAVING THE HOSPITAL TWO WEEKS AGO AND STATES HIS DAUGHTER WAS TRYING TO GET HIM INTO A CLINIC IN [place]. PT STATES THAT DR. METZGER TOLD HIM THIS MORNING THAT HE (DR. METZGER) IS CONTACTING THE CLINIC IN [place] TO GET THEM TO TAKE HIM AGAIN. PT DENIES NEEDS OF DRUG REHAB, HOME HEALTH, PHYSICAL REHAB OR SHELTER PLACEMENT. PT STATES THAT DR. METZGER IS GETTING HIM BACK INTO THE UNIT AT [place] AND IF NOT, HIS DAUGHTER IS WORKING ON GETTING HIM INTO THE ONE IN [place]. PT PLANS TO DISCHARGE HOME TO [place] WITH HIS "FRIEND" ON [facility]. CM WAITING OUTPATIENT CLINIC ARRANGEMENT BY [facility] COORDINATOR IN CLOSEST ACCEPTING OUTPATIENT DIALYSIS UNIT TO [place]. CM TO CONTINUE TO FOLLOW AND ASSIST NEEDED. Residential Carpet Installer: Jeff Christopher DCPIA - Discharge Planning Initial Assessment Updated by [email or web address]: Jeff Christopher on 10/17/18 4:54 pm * Is the patient Alert and Oriented? Yes * How many steps to enter\\exit or inside your home? NONE * PCP DR. MCKEON IN [place] * Pharmacy [facility] IN [place] * Preadmission Environment Home with Family * ADLs Independent * Equipment Cane * Other Equipment NO MEDICAL EQUIPMENT PROVIDER PREFERENCE * List name and contact numbers for known caregivers / representatives who currently or will assist patient after discharge: ROMA OH DTR, JOCELYN GILMORE, MIRACLE LUGO, * Verbal permission to speak to the caregivers and representatives has been obtained from the patient. No * Community resources currently utilized Other * Please name any agencies selected above. PT NEEDS OUTPATIENT DIALYSIS, HAS NO CURRENT OUTPATIENT DIALYSIS CLINIC * Additional services required to return to the preadmission environment? Yes * Can the patient safely return to the preadmission environment? Yes * Has this patient been hospitalized within the prior 30 days at any hospital? Yes Last DP export: 10/17/18 3:58 pm Patient Name: ODETTE OH Page 31191 at 1706 All edits/amendments must be made on the electronic document DICTATION DATE: 10/17/181705 COATING MIXER TENDER: LUH 10/17/181705 RPT#: [id number] DC DATE: STATUS: ADM IN [facility] [address] [place] [address] END OF REPORT
--- NOTE | 2018-10-17 18:43 | NUR ---
PT LAYING IN BED ALERT AND ORIENTED, CALL LIGHT IN REACH.
[2018-10-17 18:48] VITALS: BP 142/83
--- NOTE | 2018-10-17 19:27 | NUR ---
INTRODUCED SELF TO PATIENT, PATIENT HAD DAUGHTER AT BEDSIDE. PATIENT WANTED CHIPS, ADVISED WE DIDN'T HAVE ANY CHIPS ON THE UNIT. BED IN LOWEST POSITION, CALL LIGHT IN REACH. NO S/SX OF PAIN AT THIS TIME.
[2018-10-17 20:00] VITALS: BP 149/80
[2018-10-18 04:00] VITALS: BP 151/63
[2018-10-18 06:03] LABS: BASOPHILS 0.2 % (0-2); EOSINOPHILS 0.4 % (0-7); HEMATOCRIT 25.4 % (42.0-54.0); HEMOGLOBIN 8.2 g/dL (13.5-17.5); IMMATURE GRANULOCYTES 0.2 % (0-5); LYMPHOCYTES 16.1 % (15-50); MCH 29.2 pg (26.0-34.0); MCHC 32.3 g/dL (31.0-37.0); MCV 90.4 fL (80.0-100.0); MEAN PLATELET VOLUME 9.9 fL (7.4-10.4); MONOCYTES 10.9 % (2-11); NEUTROPHILS 72.2 % (40-80); PLATELET COUNT 101 10x3/uL (130-400); RBC 2.81 10x6/uL (4.20-6.10); RDW 18.3 % (11.5-14.5); WBC 5.3 10x3/uL (4.8-10.8)
[2018-10-18 06:29] LABS: ANION GAP 21.4 mmol/L (8-16); CARBON DIOXIDE 22.6 mmol/L (21.0-32.0); CREATININE - SERUM 11.6 mg/dL (0.6-1.3)
[2018-10-18 06:46] LABS: CALCIUM 6.1 mg/dL (8.5-10.1)
[2018-10-18 09:34] VITALS: BP 157/93
--- NOTE | 2018-10-18 13:17 | NUR ---
I have reviewed this patient and I concur with the Shift Assessment completed by the Licensed Practical Nurse today this shift.
[2018-10-18 17:06] VITALS: BP 136/78
[2018-10-18 20:00] VITALS: BP 158/83
--- NOTE | 2018-10-18 21:20 | NUR ---
HS MEDS GIVEN WITH FRESH ICE WATER. PT DENIES PAIN OR NEEDS. BED LOW, CL IN REACH.
[2018-10-19] VITALS: BP 149/86
[2018-10-19 04:00] VITALS: BP 146/80
[2018-10-19 05:59] LABS: BASOPHILS 0 % (0-2); EOSINOPHILS 0.3 % (0-7); HEMATOCRIT 27.6 % (42.0-54.0); HEMOGLOBIN 8.8 g/dL (13.5-17.5); IMMATURE GRANULOCYTES 0.2 % (0-5); MCH 28.9 pg (26.0-34.0); MCHC 31.9 g/dL (31.0-37.0); MCV 90.8 fL (80.0-100.0); MONOCYTES 13.5 % (2-11); PLATELET COUNT 105 10x3/uL (130-400); RBC 3.04 10x6/uL (4.20-6.10); RDW 17.8 % (11.5-14.5); WBC 6.2 10x3/uL (4.8-10.8)
[2018-10-19 06:24] LABS: ANION GAP 20.7 mmol/L (8-16); CARBON DIOXIDE 24.1 mmol/L (21.0-32.0); CREATININE - SERUM 9.2 mg/dL (0.6-1.3); POTASSIUM - SERUM 3.8 mmol/L (3.5-5.1)
[2018-10-19 06:33] LABS: CALCIUM 6.6 mg/dL (8.5-10.1)
[2018-10-19 08:03] VITALS: BP 145/89
[2018-10-19 11:53] VITALS: BP 132/82
[2018-10-19 16:01] VITALS: BP 108/78
[2018-10-19 20:00] VITALS: BP 151/85
--- NOTE | 2018-10-19 20:00 | NUR ---
INITIAL ASSESSMENT COMPLETED - PT RESTING IN BED WITH EYES CLOSED, AROUSES EASILY TO STIMULI. R FA PIV, C/D/I, PATENT. DENIES ANY PAIN OR DISCOMFORT AT THIS TIME. RR EVEN AND UL, NO S/S OF DISTRESS. CL IN REACH, SR UP X2, BED IN LOWEST POSITION. WCTM.
[2018-10-20] VITALS: BP 148/80
--- NOTE | 2018-10-20 00:45 | NUR ---
PT RESTING IN BED. A/O X4. GIVEN ICE CREAM PER REQUEST. NO OTHER NEEDS NOTED AT THIS TIME. RR EVEN AND UL. VSS. WCTM AND FOLLOW POC. CL IN REACH, SR UP X2, BED IN LOWEST POSITION.
[2018-10-20 04:00] VITALS: BP 165/92
[2018-10-20 06:04] LABS: BASOPHILS 0.2 % (0-2); EOSINOPHILS 0.5 % (0-7); HEMATOCRIT 24.7 % (42.0-54.0); HEMOGLOBIN 7.9 g/dL (13.5-17.5); IMMATURE GRANULOCYTES 0.2 % (0-5); LYMPHOCYTES 18.1 % (15-50); MCH 28.9 pg (26.0-34.0); MCV 90.5 fL (80.0-100.0); MEAN PLATELET VOLUME 10.6 fL (7.4-10.4); MONOCYTES 11.6 % (2-11); NEUTROPHILS 69.4 % (40-80); PLATELET COUNT 106 10x3/uL (130-400); RBC 2.73 10x6/uL (4.20-6.10); RDW 17.4 % (11.5-14.5); WBC 6.5 10x3/uL (4.8-10.8)
[2018-10-20 06:29] LABS: ANION GAP 17.8 mmol/L (8-16); CARBON DIOXIDE 25.4 mmol/L (21.0-32.0); CREATININE - SERUM 11.2 mg/dL (0.6-1.3); POTASSIUM - SERUM 4.2 mmol/L (3.5-5.1)
[2018-10-20 06:55] LABS: CALCIUM 6.2 mg/dL (8.5-10.1)
--- NOTE | 2018-10-20 07:30 | NUR ---
PT RESTING IN BED, SHIFT ASSESSMENT PERFORMED. PT REPORTS PAIN 10/10 IN ABD. PRN NORCO WILL BE GIVEN WITH MORNING MEDS. DENIES ANY OTHER NEEDS AT THIS TIME, WILL CONT TO FOLLOW PLAN OF CARE
[2018-10-20 08:48] VITALS: BP 145/76
--- NOTE | 2018-10-20 08:50 | NUR ---
DIALYSIS CALLED FOR PT TO COME DOWN, TRANSPORTED PT VIA BED TO DIALYSIS.
--- NOTE | 2018-10-20 13:01 | NUR ---
D/C PTS R.AC PIV WITH CATHETER TIP FULLY INTACT. DISCHARGE TEACHING PROVIDED AND PAPERS SIGNED. PT VERBALIZED UNDERSTANDING AND DENIES ANY QUESTIONS OR CONCERNS. ALL BELONGINGS COLLECTED AND BAGGED FOR PT. PTS DAUGHTER HERE FOR TRANSPORTATION. WILL ESCORT PT OUT AT THIS TIME.
--- NOTE | 2018-10-23 10:35 | MORECARE ---
CASE MANAGEMENT DISCHARGE SUMMARY PATIENT: ODETTE OH UNIT: [id number] ADM DATE: 10/14/18 AGE: 58 : 64 SEX: M ROOM/BED: D.9843 AUTHOR: MARU,DOC PHYSICIAN: REFERRING PHYSICIAN: JUAN ANDRADE MD DATE OF SERVICE: 10/23/18 Discharge Plan Patient Name: ODETTE OH Facility: [facility]:[place] : 1960 Planned Disposition: Home Anticipated Discharge Date: 10/20/18 Discharge Date: 10/20/2018 Expected LOS: 6 Initial Reviewer: [email or web address] Initial Review Date: 10/17/2018 Generated: 10/23/18 11:35 am Comments DCP- Discharge Planning Updated by [email or web address]: Jeff Christopher on 10/17/18 3:[address] Patient Name: ODETTE OH Admission Status: ER Accout number: [id number] Admission Date: 10-14-2018 : 1960 Admission Diagnosis:HYPERKALEMIA Attending: JUAN ANDRADE Current LOS: 3 Anticipated DC Date: Planned Disposition: Home Primary Insurance: MEDICAID [place] Discharge Planning Comments: CM RECEIVED ORDER TO ASSIST WITH OUTPATIENT DIALYSIS CLINIC ARRANGEMENT AND DISCHARGE PLANNING. CM NOTIFIED CHIRAG MILES OF [facility] WHO WAS ALREADY AWARE OF THE NEED AND IS SEEKING OUTPATIENT CLINIC THAT MAY ACCEPT PT FOR OUTPATIENT DIALYSIS. CM MET WITH PT IN ROOM TO DISCUSS DISCHARGE PLANNING AND NEEDS. PT REPORTS LIVING AT A FRIENDS HOME IN [place] LOCATED AT "[facility]" REPORTING IT IS AROUND THE CORNER FROM HIS DAUGHTER'S HOME. PT WILL BE RETURNING THERE AT DISCHARGE. PT REPORTS BEING INDEPENDENT IN HIS CARE AND WALKS WITH A CANE. PT REPORTS IS NOT GOING TO ANY CORRECTION. PT HAS NOT BEEN TO DIALYSIS SINCE LEAVING THE HOSPITAL TWO WEEKS AGO AND STATES HIS DAUGHTER WAS TRYING TO GET HIM INTO A CLINIC IN [place]. PT STATES THAT DR. METZGER TOLD HIM THIS MORNING THAT HE (DR. METZGER) IS CONTACTING THE CLINIC IN [place] TO GET THEM TO TAKE HIM AGAIN. PT DENIES NEEDS OF DRUG REHAB, HOME HEALTH, PHYSICAL REHAB OR CORRECTION PLACEMENT. PT STATES THAT DR. METZGER IS GETTING HIM BACK INTO THE UNIT AT [place] AND IF NOT, HIS DAUGHTER IS WORKING ON GETTING HIM INTO THE ONE IN [place]. PT PLANS TO DISCHARGE HOME TO [place] WITH HIS "FRIEND" ON [facility]. CM WAITING OUTPATIENT CLINIC ARRANGEMENT BY [facility] PATIENT [facility] COORDINATOR IN [place] ACCEPTING OUTPATIENT DIALYSIS UNIT TO [place]. CM TO CONTINUE TO FOLLOW AND ASSIST NEEDED. Jewelry Sales Associate: Jeff Christopher DCPIA - Discharge Planning Initial Assessment Updated by [email or web address]: Jeff Christopher on 10/17/18 4:54 pm * Is the patient Alert and Oriented? Yes * How many steps to enter\\exit or inside your home? NONE * PCP DR. MCKEON IN [place] * Pharmacy [facility] IN [place] * Preadmission Environment Home with Family * ADLs Independent * Equipment Cane * Other Equipment NO MEDICAL EQUIPMENT PROVIDER PREFERENCE * List name and contact numbers for known caregivers / representatives who currently or will assist patient after discharge: ROMA OH DTR, JOCELYN GILMORE, MIRACLE LUGO, * Verbal permission to speak to the caregivers and representatives has been obtained from the patient. No * Community resources currently utilized Other * Please name any agencies selected above. PT NEEDS OUTPATIENT DIALYSIS, HAS NO CURRENT OUTPATIENT DIALYSIS CLINIC * Additional services required to return to the preadmission environment? Yes * Can the patient safely return to the preadmission environment? Yes * Has this patient been hospitalized within the prior 30 days at any hospital? Yes Last DP export: 10/17/18 3:06 pm Patient Name: ODETTE OH Page [id number] at 1035 All edits/amendments must be made on the electronic document DICTATION DATE: 10/23/18 1034 COLOR DEVELOPER: LUH 10/23/18 1034 RPT#: [id number] DC DATE:10/20/18 STATUS: DIS IN [facility] [address] [place] [address] END OF REPORT
== END 2018-10-20 13:05 | disposition home or self-care (01) | DRG 291 ==
LOC: D.ER 02:17 → D.EDHOLD 04:01 → D.CVICU 04:01 → D.M2 04:01 → D.ICU 04:35 → D.CVICU 05:21 → D.M2 10-15 14:13
PROVIDERS: Family Medicine; Internal Medicine Nephrology; ADMIT Internal Medicine Nephrology; ATTEND Internal Medicine Nephrology
PROC: 5A1D70Z Performance of Urinary Filtration, Intermittent, Less than 6 Hours Per Day (ICD-10-PCS; principal; 2018-10-18)
DX: I13.2 Hypertensive heart and chronic kidney disease with heart failure and with stage 5 chronic kidney disease, or end stage renal disease (principal); N18.6 End stage renal disease; I16.9 Hypertensive crisis, unspecified; E87.2 Acidosis; E87.5 Hyperkalemia; E11.22 Type 2 diabetes mellitus with diabetic chronic kidney disease; I50.9 Heart failure, unspecified; Z99.2 Dependence on renal dialysis; Z91.15 Patient's noncompliance with renal dialysis; D64.9 Anemia, unspecified; E83.39 Other disorders of phosphorus metabolism; K21.9 Gastro-esophageal reflux disease without esophagitis; E78.5 Hyperlipidemia, unspecified; B19.20 Unspecified viral hepatitis C without hepatic coma

== ENCOUNTER 2018-12-16 18:20 | Emergency (ER) | payer MEDICAID ==
[2018-12-16 18:22] VITALS: BMI 23.0
[2018-12-16 19:04] LABS: BASOPHILS 0.1 % (0-2); EOSINOPHILS 0.2 % (0-7); HEMATOCRIT 28.1 % (42.0-54.0); IMMATURE GRANULOCYTES 0.4 % (0-5); LYMPHOCYTES 15.5 % (15-50); MCH 28.8 pg (26.0-34.0); MCV 90.1 fL (80.0-100.0); MEAN PLATELET VOLUME 10.4 fL (7.4-10.4); MONOCYTES 16.2 % (2-11); NEUTROPHILS 67.6 % (40-80); RBC 3.12 10x6/uL (4.20-6.10); RDW 18.1 % (11.5-14.5)
[2018-12-16 19:05] LABS: PLATELET COUNT 199 10x3/uL (130-400)
[2018-12-16 19:16] LABS: APTT 30.8 SECONDS (22.8-39.4); INR 1.29 (0.85-1.17); PROTIME 15.5 SECONDS (11.6-15.0)
[2018-12-16 20:03] LABS: ALBUMIN 2.7 g/dL (3.4-5.0); ALKALINE PHOSPHATASE 95 U/L (46-116); ALT (SGPT) 14 U/L (10-68); BILIRUBIN - TOTAL 0.44 mg/dL (0.2-1.3); CALC OSMOLALITY 314 mosm/kg (275-300); CALCIUM 7.2 mg/dL (8.5-10.1); CHLORIDE - SERUM 101 mmol/L (98-107); CREATININE - SERUM 14.8 mg/dL (0.6-1.3); GLUCOSE 94 mg/dL (74-106); PROTEIN - SERUM 8.2 g/dL (6.4-8.2); SODIUM 138 mmol/L (136-145); UREA NITROGEN 122 mg/dL (7-18); eGFR NON AFRICAN AMERICAN 4 mL/min (90-120)
[2018-12-16 20:18] LABS: CKMB 4.4 U/L (0.0-3.6); CREATINE KINASE 114 UL (21-232); MAGNESIUM - SERUM 2.2 mg/dL (1.8-2.4)
[2018-12-16 20:23] LABS: TROPONIN-I 0.079 ng/mL (0.000-0.060)
[2018-12-17] MEDS ORDERED: NORVASC5 MG PO (02:21)
[2018-12-17] MEDS ORDERED: ISOSORBIDE MONO60 M1 PO (02:21)
[2018-12-17] MEDS ORDERED: METOPROLOL TART50 MG PO (02:21)
[2018-12-17 02:44] VITALS: BP 148/79
== END 2018-12-17 02:43 | disposition home or self-care (01) ==
LOC: D.ER 18:20
PROVIDERS: Family Medicine
DX: I12.0 Hypertensive chronic kidney disease with stage 5 chronic kidney disease or end stage renal disease (principal); N18.6 End stage renal disease

== ENCOUNTER 2018-12-20 15:15 | Emergency (ER) | payer MEDICAID ==
[~2018-12-20] VITALS: Ht 177.8 cm; Wt 74.1 kg
[2018-12-20 15:34] VITALS: Ht 177.8 cm; Wt 74.1 kg
[2018-12-20 16:23] LABS: BASOPHILS 0.2 % (0-2); EOSINOPHILS 0.1 % (0-7); HEMATOCRIT 27.3 % (42.0-54.0); HEMOGLOBIN 8.8 g/dL (13.5-17.5); IMMATURE GRANULOCYTES 1.1 % (0-5); LYMPHOCYTES 16.8 % (15-50); MCHC 32.2 g/dL (31.0-37.0); MCV 90.1 fL (80.0-100.0); MEAN PLATELET VOLUME 9.8 fL (7.4-10.4); MONOCYTES 10.2 % (2-11); NEUTROPHILS 71.6 % (40-80); PLATELET COUNT 223 10x3/uL (130-400); RBC 3.03 10x6/uL (4.20-6.10); RDW 17.5 % (11.5-14.5); WBC 11.9 10x3/uL (4.8-10.8)
[2018-12-20 16:53] LABS: ALBUMIN 2.6 g/dL (3.4-5.0); ALKALINE PHOSPHATASE 106 U/L (46-116); ALT (SGPT) 14 U/L (10-68); BILIRUBIN - TOTAL 0.55 mg/dL (0.2-1.3); CALC OSMOLALITY 304 mosm/kg (275-300); CALCIUM 7.3 mg/dL (8.5-10.1); CARBON DIOXIDE 21.1 mmol/L (21.0-32.0); CHLORIDE - SERUM 96 mmol/L (98-107); CKMB 2.8 U/L (0.0-3.6); CREATINE KINASE 72 UL (21-232); CREATININE - SERUM 15.5 mg/dL (0.6-1.3); GLUCOSE 96 mg/dL (74-106); PROTEIN - SERUM 8.8 g/dL (6.4-8.2); SODIUM 135 mmol/L (136-145); UREA NITROGEN 111 mg/dL (7-18); eGFR NON AFRICAN AMERICAN 3 mL/min (90-120)
[2018-12-20 17:05] LABS: PRO BNP 169605 pg/mL (0-125)
[2018-12-20 17:09] LABS: TROPONIN-I 0.112 ng/mL (0.000-0.060)
[2018-12-20 17:10] LABS: POTASSIUM - SERUM 6.3 mmol/L (3.5-5.1)
[2018-12-20 23:29] VITALS: BP 173/96
== END 2018-12-20 23:25 | disposition home or self-care (01) ==
LOC: D.ER 15:15
PROVIDERS: Family Medicine
DX: E87.5 Hyperkalemia (principal); Z91.15 Patient's noncompliance with renal dialysis

== ENCOUNTER 2019-01-17 10:34 | Emergency (ER) | payer MEDICAID ==
[~2019-01-17] VITALS: Ht 177.8 cm; Wt 77.3 kg
[2019-01-17 10:38] VITALS: Ht 177.8 cm; Wt 77.3 kg
[2019-01-17 11:26] LABS: APTT 32.2 SECONDS (22.8-39.4); INR 1.1 (0.85-1.17); PROTIME 13.7 SECONDS (11.6-15.0)
[2019-01-17 11:31] LABS: HEMATOCRIT 35.8 % (42.0-54.0); HEMOGLOBIN 11.6 g/dL (13.5-17.5); MCHC 32.4 g/dL (31.0-37.0); MCV 89.5 fL (80.0-100.0); MEAN PLATELET VOLUME 10.4 fL (7.4-10.4); RDW 17.6 % (11.5-14.5); WBC 6.3 10x3/uL (4.8-10.8)
[2019-01-17 11:32] LABS: ALBUMIN 2.6 g/dL (3.4-5.0); ALKALINE PHOSPHATASE 78 U/L (46-116); ALT (SGPT) 27 U/L (10-68); BILIRUBIN - TOTAL 0.51 mg/dL (0.2-1.3); CALC OSMOLALITY 297 mosm/kg (275-300); CARBON DIOXIDE 21.2 mmol/L (21.0-32.0); CHLORIDE - SERUM 101 mmol/L (98-107); CREATININE - SERUM 10.1 mg/dL (0.6-1.3); GLUCOSE 110 mg/dL (74-106); POTASSIUM - SERUM 4.5 mmol/L (3.5-5.1); PROTEIN - SERUM 7.7 g/dL (6.4-8.2); SODIUM 139 mmol/L (136-145); UREA NITROGEN 66 mg/dL (7-18); eGFR NON AFRICAN AMERICAN 6 mL/min (90-120)
[2019-01-17 11:46] LABS: CREATINE KINASE 93 UL (21-232); MAGNESIUM - SERUM 1.9 mg/dL (1.8-2.4)
[2019-01-17 11:52] LABS: PLATELET COUNT 85 10x3/uL (130-400)
[2019-01-17 12:07] LABS: TROPONIN-I 0.175 ng/mL (0.000-0.060)
[2019-01-17 12:28] LABS: ANISOCYTOSIS OCC; HYPOCHROMASIA OCC; LYMPHOCYTES 15 % (15-50); MONOCYTES 12 % (2-11); NEUTROPHILS 73 % (40-80); PLATELET ESTIMATE DECREASED; ROULEAUX OCC
[2019-01-17 19:10] VITALS: BP 164/98
== END 2019-01-17 19:10 | disposition home or self-care (01) ==
LOC: D.ER 10:34
PROVIDERS: Emergency Medicine
DX: I12.9 Hypertensive chronic kidney disease with stage 1 through stage 4 chronic kidney disease, or unspecified chronic kidney disease (principal); N18.9 Chronic kidney disease, unspecified; Z91.14 Patient's other noncompliance with medication regimen; Z91.15 Patient's noncompliance with renal dialysis

== ENCOUNTER 2019-01-26 02:25 | Observation (INO) | payer MEDICAID ==
[~2019-01-26] VITALS: Ht 177.8 cm; Wt 74.5 kg
[2019-01-26 02:52] LABS: BASOPHILS 0 % (0-2); EOSINOPHILS 0.5 % (0-7); HEMATOCRIT 27.8 % (42.0-54.0); HEMOGLOBIN 9.1 g/dL (13.5-17.5); IMMATURE GRANULOCYTES 0.2 % (0-5); LYMPHOCYTES 26.9 % (15-50); MCH 29.5 pg (26.0-34.0); MCHC 32.7 g/dL (31.0-37.0); MCV 90.3 fL (80.0-100.0); MEAN PLATELET VOLUME 10.1 fL (7.4-10.4); MONOCYTES 9.4 % (2-11); PLATELET COUNT 116 10x3/uL (130-400); RBC 3.08 10x6/uL (4.20-6.10); RDW 16.7 % (11.5-14.5)
[2019-01-26 03:05] LABS: ALKALINE PHOSPHATASE 88 U/L (46-116); ALT (SGPT) 30 U/L (10-68); BILIRUBIN - TOTAL 0.42 mg/dL (0.2-1.3); CALC OSMOLALITY 306 mosm/kg (275-300); CALCIUM 7.9 mg/dL (8.5-10.1); CARBON DIOXIDE 26.3 mmol/L (21.0-32.0); CHLORIDE - SERUM 103 mmol/L (98-107); CREATININE - SERUM 9.7 mg/dL (0.6-1.3); GLUCOSE 95 mg/dL (74-106); POTASSIUM - SERUM 4.9 mmol/L (3.5-5.1); PROTEIN - SERUM 8.4 g/dL (6.4-8.2); SODIUM 142 mmol/L (136-145); UREA NITROGEN 79 mg/dL (7-18); eGFR NON AFRICAN AMERICAN 6 mL/min (90-120)
[2019-01-26 03:21] LABS: CKMB 2.8 U/L (0.0-3.6); CREATINE KINASE 87 UL (21-232)
[2019-01-26 03:23] LABS: TROPONIN-I 0.203 ng/mL (0.000-0.060)
[2019-01-26 04:13] VITALS: BP 192/103
[2019-01-26 06:20] VITALS: BP 170/89; BMI 23.8
--- NOTE | 2019-01-26 06:26 | NUR ---
RECIEVED REPORT FROM ER. ARRIVED TO UNIT IN W/C. TRANSFERED SELF TO BED. ALERT AND ORIENTED X4. UP AD LANDRY TO B/R. LEFT ARM RESERVED D/T AVF. REPORTED BY ER EKG NSR. DENIES ANY PAIN AT THIS TIME. STATES HE'S VERY SLEEPY. WHEN REVIEWING MEDICATIONS PT STATES " IT'S BEEN A WHILE SINCE I TOOK MY MEDS AND DON'T REMEMBER WHEN I TOOK THEM LAST". DENIES ANY OTHER NEEDS AT THIS TIME.
--- NOTE | 2019-01-26 07:46 | NUR ---
ASSESSMENT DONE. DENIES NEEDS.
[2019-01-26 08:34] LABS: BASOPHILS 0 % (0-2); EOSINOPHILS 0.4 % (0-7); HEMATOCRIT 26.8 % (42.0-54.0); HEMOGLOBIN 8.7 g/dL (13.5-17.5); IMMATURE GRANULOCYTES 0.4 % (0-5); LYMPHOCYTES 32.3 % (15-50); MCH 29.5 pg (26.0-34.0); MCHC 32.5 g/dL (31.0-37.0); MCV 90.8 fL (80.0-100.0); MEAN PLATELET VOLUME 9.9 fL (7.4-10.4); NEUTROPHILS 56.9 % (40-80); PLATELET COUNT 114 10x3/uL (130-400); RBC 2.95 10x6/uL (4.20-6.10); RDW 16.9 % (11.5-14.5); WBC 5.6 10x3/uL (4.8-10.8)
[2019-01-26 09:10] LABS: CALC OSMOLALITY 305 mosm/kg (275-300); CALCIUM 7.7 mg/dL (8.5-10.1); CARBON DIOXIDE 22.3 mmol/L (21.0-32.0); CHLORIDE - SERUM 102 mmol/L (98-107); CKMB 2.6 U/L (0.0-3.6); CREATINE KINASE 75 UL (21-232); CREATININE - SERUM 10.2 mg/dL (0.6-1.3); GLUCOSE 94 mg/dL (74-106); MAGNESIUM - SERUM 2.4 mg/dL (1.8-2.4); POTASSIUM - SERUM 5.1 mmol/L (3.5-5.1); SODIUM 141 mmol/L (136-145); UREA NITROGEN 82 mg/dL (7-18); eGFR NON AFRICAN AMERICAN 6 mL/min (90-120)
[2019-01-26 09:12] LABS: TROPONIN-I 0.154 ng/mL (0.000-0.060)
[2019-01-26 09:55] VITALS: BP 165/88
[2019-01-26 11:37] VITALS: Ht 177.8 cm; Wt 74.5 kg
--- NOTE | 2019-01-26 11:52 | NUR ---
TO HD PER BED
[2019-01-26 12:49] VITALS: BP 161/81
--- NOTE | 2019-01-26 13:14 | NUR ---
I have reviewed this patient and I concur with the Shift Assessment completed by the Licensed Practical Nurse today this shift.
--- NOTE | 2019-01-26 16:30 | NUR ---
RETURN FROM HD PER BED
--- NOTE | 2019-01-26 17:12 | NUR ---
WITHOUT CHANGES OR DISTRESS NOTED AT THIS TIME. DENIES NEEDS.
[2019-01-26 17:57] VITALS: BP 152/88
[2019-01-26 20:00] VITALS: BP 150/78
--- NOTE | 2019-01-26 20:00 | NUR ---
INITIAL ROUNDS AND ASSESSMENT COMPLETED. PT RESTING IN BED WITH NO DISTRESS. ALERT/ORIENTED. MONITOR AND CPOC.
[2019-01-27] VITALS: BP 138/80
--- NOTE | 2019-01-27 00:48 | NUR ---
URINE COLLECTED AND SENT TO LAB FOR UA/UDS.
[2019-01-27 01:22] LABS: UDS - AMPHET NEGATIVE QUAL (NEGATIVE); UDS - BARB NEGATIVE QUAL (NEGATIVE); UDS - BENZO NEGATIVE QUAL (NEGATIVE); UDS - COCAINE NEGATIVE QUAL (NEGATIVE); UDS - OPIATE NEGATIVE QUAL (NEGATIVE); UDS - PCP NEGATIVE QUAL (NEGATIVE); UDS - THC NEGATIVE QUAL (NEGATIVE)
[2019-01-27 01:28] LABS: APPEARANCE CLOUDY (CLEAR); BILIRUBIN NEGATIVE (NEGATIVE); COLOR YELLOW (YELLOW); GLUCOSE NEGATIVE (NEGATIVE); KETONE NEGATIVE (NEGATIVE); NITRITE NEGATIVE (NEGATIVE); PROTEIN 2+ mg/dL (NEGATIVE); UROBILINOGEN NORMAL (NORMAL)
[2019-01-27 01:29] LABS: WHITE CELLS - URINE 0-5 /hpf (0-5)
--- NOTE | 2019-01-27 03:25 | NUR ---
RESTING IN BED WITH EYES CLOSED. RESPS EVEN/NONLABORED. MONITOR AND CPOC.
[2019-01-27 04:00] VITALS: BP 127/76
[2019-01-27 04:24] LABS: BASOPHILS 0 % (0-2); EOSINOPHILS 0.4 % (0-7); HEMATOCRIT 27.1 % (42.0-54.0); HEMOGLOBIN 8.8 g/dL (13.5-17.5); IMMATURE GRANULOCYTES 0.6 % (0-5); LYMPHOCYTES 27.9 % (15-50); MCH 29.7 pg (26.0-34.0); MCHC 32.5 g/dL (31.0-37.0); MCV 91.6 fL (80.0-100.0); MEAN PLATELET VOLUME 9.9 fL (7.4-10.4); MONOCYTES 10.3 % (2-11); NEUTROPHILS 60.8 % (40-80); PLATELET COUNT 133 10x3/uL (130-400); RBC 2.96 10x6/uL (4.20-6.10); RDW 16.9 % (11.5-14.5); WBC 5.4 10x3/uL (4.8-10.8)
[2019-01-27 04:36] LABS: ALBUMIN 2.8 g/dL (3.4-5.0); ANION GAP 19.3 mmol/L (8-16); BILIRUBIN - TOTAL 0.41 mg/dL (0.2-1.3); CALCIUM 8.5 mg/dL (8.5-10.1); CARBON DIOXIDE 25.7 mmol/L (21.0-32.0); PROTEIN - SERUM 8.2 g/dL (6.4-8.2)
[2019-01-27 04:37] LABS: CREATININE - SERUM 7.1 mg/dL (0.6-1.3)
--- NOTE | 2019-01-27 07:12 | NUR ---
AM AROUNDS- PT RESTING COMFORTABLY IN BED WITH EYES CLOSED. RESP EVEN AND NONLABORED ON RA. MONITOR SHOWING SR WITH RATE OF 78. RT HAND IV SL. AV FISTULA NOTED TO LT ARM, WITH TERESA AND NARESH NOTED. CALL LIGHT IN REACH, BEDSIDE RAILS X2, NAD NOTED, WILL CONTINUE PLAN OF CARE.
--- NOTE | 2019-01-27 08:27 | NUR ---
AM MEDS GIVEN AT THIS TIME. PT IN BED, EATING BREAKFAST, DENIES ANY NEEDS AT THIS TIME. CALL LIGHT IN REACH, NAD NOTED, WILL CONTINUE TO MONITOR.
[2019-01-27 10:08] VITALS: BP 146/83
[2019-01-27] MEDS ORDERED: NORVASC5 MG PO (11:38)
--- NOTE | 2019-01-27 12:02 | NUR ---
WENT TO GIVE PT TYLENOL BECAUSE THAT IS ALL HE HAS FOR PAIN OTHER THAN NITRO, PT REFUSED TO TAKE TYLENOL, STATED THAT IS DOES NOTHING FOR HIS PAIN. FAMILY AT BEDSIDE, INFORMED PT AND FAMILY THAT PER RENAL STANDPOINT PT CAN BE DISCHARGE, WAITING ON DR. IRWIN TO SEE IF HE WILL BE DISCHARGE TODAY. PT DENIES ANY OTHER NEEDS AT THIS TIME. CALL LIGHT IN REACH, NAD NOTED, WILL CONTINUE TO MONITOR.
--- NOTE | 2019-01-27 14:41 | NUR ---
PROVIDED VERBAL AND WRITTEN DISCHARGE TEACHING TO PT WHO VERBALIZED UNDER REGARDING TEACHING. CALLED SISTER TO COME PICK HIM UP. PT WILL NOFITY THIS NURSE WHEN READY FOR WHEELCHAIR. HEART MONITOR REMOVED AND TAKEN TO MANAGER RETAIL JUDY.
--- NOTE | 2019-01-27 14:54 | NUR ---
PT LEFT UNIT VIA WHEELCHAIR, WITH ALL BELONGINGS, NAD NOTED.
--- NOTE | 2019-01-29 08:26 | MORECARE ---
CASE MANAGEMENT DISCHARGE SUMMARY PATIENT: ODETTE OH UNIT: [id number] ADM DATE: 01/26/19 AGE: 58 : 64 SEX: M ROOM/BED: D.2121 AUTHOR: ETHAN MAHONEY PHYSICIAN: REFERRING PHYSICIAN: COOKIE IRWIN MD DATE OF SERVICE: 01/29/19 Discharge Plan Patient Name: ODETTE OH [facility] [facility] 1960 Planned Disposition: Home Anticipated Discharge Date: 01/27/19 Discharge Date: 01/27/2019 Expected LOS: 1 Initial Reviewer: [email or web address] Initial Review Date: 01/29/2019 Generated: 01/29/19 9:26 am Patient Name: ODETTE OH Page [id number] at 0826 All edits/amendments must be made on the electronic document DICTATION DATE: 01/29/19824 POST SECONDARY PROFESSIONAL: LUH 01/29/19824 RPT#: [id number] DC DATE:01/27/19 STATUS: DIS IN [facility] [address] [facility] [place] [address] END OF REPORT
== END 2019-01-27 14:54 | disposition home or self-care (01) ==
LOC: D.ER 02:25 → D.M2 04:11 → OBSVTIME 04:11 → D.M2 01-27 14:54
PROVIDERS: Family Medicine; ADMIT Family Medicine; ATTEND Family Medicine
DX: I16.0 Hypertensive urgency (principal); I13.2 Hypertensive heart and chronic kidney disease with heart failure and with stage 5 chronic kidney disease, or end stage renal disease; N18.6 End stage renal disease; I50.9 Heart failure, unspecified; Z99.2 Dependence on renal dialysis; Z91.15 Patient's noncompliance with renal dialysis; D63.1 Anemia in chronic kidney disease; N25.81 Secondary hyperparathyroidism of renal origin; E87.5 Hyperkalemia; F17.213 Nicotine dependence, cigarettes, with withdrawal; K21.9 Gastro-esophageal reflux disease without esophagitis; E78.5 Hyperlipidemia, unspecified; I25.110 Atherosclerotic heart disease of native coronary artery with unstable angina pectoris

== ENCOUNTER 2019-01-30 20:38 | Inpatient (IN) | payer MEDICAID ==
[~2019-01-30] VITALS: Ht 177.8 cm; Wt 67.8 kg
[2019-01-30 21:24] LABS: APPEARANCE CLEAR (CLEAR); BILIRUBIN NEGATIVE (NEGATIVE); COLOR YELLOW (YELLOW); GLUCOSE NEGATIVE (NEGATIVE); KETONE NEGATIVE (NEGATIVE); NITRITE NEGATIVE (NEGATIVE); PROTEIN 1+ mg/dL (NEGATIVE); UROBILINOGEN NORMAL (NORMAL)
[2019-01-30 21:25] LABS: BACTERIA FEW /hpf (NONE SEEN); RED CELLS - URINE 25-50 /hpf (0-5); WHITE CELLS - URINE 0-5 /hpf (0-5)
[2019-01-30 21:27] LABS: UDS - AMPHET NEGATIVE QUAL (NEGATIVE); UDS - BARB NEGATIVE QUAL (NEGATIVE); UDS - BENZO NEGATIVE QUAL (NEGATIVE); UDS - COCAINE NEGATIVE QUAL (NEGATIVE); UDS - OPIATE NEGATIVE QUAL (NEGATIVE); UDS - PCP NEGATIVE QUAL (NEGATIVE); UDS - THC NEGATIVE QUAL (NEGATIVE)
[2019-01-30 21:44] LABS: BASOPHILS 0 % (0-2); EOSINOPHILS 0.2 % (0-7); HEMATOCRIT 26.3 % (42.0-54.0); HEMOGLOBIN 8.6 g/dL (13.5-17.5); IMMATURE GRANULOCYTES 0.2 % (0-5); LYMPHOCYTES 31.1 % (15-50); MCH 29.1 pg (26.0-34.0); MCHC 32.7 g/dL (31.0-37.0); MCV 88.9 fL (80.0-100.0); MEAN PLATELET VOLUME 9.9 fL (7.4-10.4); MONOCYTES 11.4 % (2-11); NEUTROPHILS 57.1 % (40-80); RBC 2.96 10x6/uL (4.20-6.10); RDW 16.4 % (11.5-14.5); WBC 5.6 10x3/uL (4.8-10.8)
[2019-01-30 21:48] LABS: PLATELET COUNT 176 10x3/uL (130-400)
[2019-01-30 22:11] LABS: ALKALINE PHOSPHATASE 92 U/L (46-116); ALT (SGPT) 26 U/L (10-68); AMYLASE - SERUM 165 U/L (25-115); BILIRUBIN - TOTAL 0.45 mg/dL (0.2-1.3); CALC OSMOLALITY 315 mosm/kg (275-300); CALCIUM 7.5 mg/dL (8.5-10.1); CARBON DIOXIDE 18.8 mmol/L (21.0-32.0); CHLORIDE - SERUM 99 mmol/L (98-107); CKMB 4.9 U/L (0.0-3.6); CREATINE KINASE 102 UL (21-232); CREATININE - SERUM 13.2 mg/dL (0.6-1.3); GLUCOSE 99 mg/dL (74-106); LIPASE 340 U/L (73-393); MAGNESIUM - SERUM 2.5 mg/dL (1.8-2.4); PROTEIN - SERUM 8.3 g/dL (6.4-8.2); SODIUM 139 mmol/L (136-145); UREA NITROGEN 119 mg/dL (7-18); eGFR NON AFRICAN AMERICAN 4 mL/min (90-120)
[2019-01-30 22:14] LABS: TROPONIN-I 0.101 ng/mL (0.000-0.060)
[2019-01-30 22:17] LABS: POTASSIUM - SERUM 6.5 mmol/L (3.5-5.1)
--- NOTE | 2019-01-30 22:21 | NUR ---
NOTIFIED DR. KIRAN OF K+ 6.5
--- NOTE | 2019-01-31 01:04 | NUR ---
ARRIVES FROM ER VIA WC ND TO BED GAIT IS STEADY. LCTA SKIN WARM AND DRY. VS 192/107 *NOTE THIS BP HAS BEEN CONSISTANT IN ER PRIOR TO ARRIVAL 100 20 98.2 94% RA...WT 159.3 EFFORT MADE TO PROVIDE PATIENT COMFORT PT REFUSED TO PROVIDE ANSWERS FOR HISTORY AND MED REC...BED IS LOW AND LOCKED CALL LIGHT PROVIDED AND TELEMETRY WILL BE PLACED ORDERED
[2019-01-31 01:55] VITALS: BP 192/107; BMI 22.8
[2019-01-31 06:38] LABS: BASOPHILS 0 % (0-2); EOSINOPHILS 0.3 % (0-7); HEMATOCRIT 24.8 % (42.0-54.0); IMMATURE GRANULOCYTES 0.3 % (0-5); LYMPHOCYTES 22.6 % (15-50); MCH 28.5 pg (26.0-34.0); MCHC 32.3 g/dL (31.0-37.0); MCV 88.3 fL (80.0-100.0); MEAN PLATELET VOLUME 10.2 fL (7.4-10.4); MONOCYTES 13.8 % (2-11); PLATELET COUNT 158 10x3/uL (130-400); RBC 2.81 10x6/uL (4.20-6.10); RDW 16.5 % (11.5-14.5)
[2019-01-31 07:41] LABS: BILIRUBIN - TOTAL 0.51 mg/dL (0.2-1.3); CALCIUM 7.5 mg/dL (8.5-10.1); CARBON DIOXIDE 17.5 mmol/L (21.0-32.0); CREATININE - SERUM 13.3 mg/dL (0.6-1.3); MAGNESIUM - SERUM 2.4 mg/dL (1.8-2.4); PROTEIN - SERUM 8.2 g/dL (6.4-8.2)
[2019-01-31 07:47] LABS: ANION GAP 28.3 mmol/L (8-16)
[2019-01-31 07:48] LABS: POTASSIUM - SERUM 6.8 mmol/L (3.5-5.1); TROPONIN-I 0.104 ng/mL (0.000-0.060)
--- NOTE | 2019-01-31 08:02 | NUR ---
ELEVATED K+ AND TROPONIN CALLED TO [facility] AND GIVEN TO DR. CHAND. NEW ORDERS GIVEN.
--- NOTE | 2019-01-31 09:00 | NUR ---
URINE SPECIMEN COLLECTED AND TAKEN TO LAB. WILL MONITOR.
[2019-01-31 09:19] LABS: UDS - AMPHET NEGATIVE QUAL (NEGATIVE); UDS - BARB NEGATIVE QUAL (NEGATIVE); UDS - BENZO NEGATIVE QUAL (NEGATIVE); UDS - COCAINE NEGATIVE QUAL (NEGATIVE); UDS - OPIATE NEGATIVE QUAL (NEGATIVE); UDS - PCP NEGATIVE QUAL (NEGATIVE); UDS - THC NEGATIVE QUAL (NEGATIVE)
[2019-01-31 09:23] VITALS: BP 156/98
--- NOTE | 2019-01-31 10:19 | NUR ---
LEAVING FOR DIALYSIS BY W/C.
[2019-01-31 10:52] VITALS: Ht 177.8 cm; Wt 67.8 kg
[2019-01-31 18:58] VITALS: BP 157/84
--- NOTE | 2019-01-31 19:54 | NUR ---
EVENING ROUNDS COMPLETED. AAOX3, VSS, BUT APPEARS LETHARGIC. L.HAND RESERVE. FISTULA ACCESS C/D/I. PT ON TELE, WITH NORMAL SINUS. PIV ON R.HAND PATENT. ICE CHIPS PROVIDED PER PT REQUEST. PT DENIES ANY FURTHER NEEDS AT THIS TIME. WILL CPOC. CL WITHIN REACH.
[2019-01-31 20:00] VITALS: BP 150/89
[2019-02-01] VITALS: BP 172/99
[2019-02-01 04:00] VITALS: BP 168/96
--- NOTE | 2019-02-01 08:53 | NUR ---
PT RESTING IN BED, SHIFT ASSESSMENT PERFORMED. DENIES ANY NEEDS AT THIS TIME, WILL CONT TO FOLLOW POC
[2019-02-01 09:41] VITALS: BP 170/96
[2019-02-01 10:19] LABS: BASOPHILS 0 % (0-2); EOSINOPHILS 0.6 % (0-7); HEMATOCRIT 25.8 % (42.0-54.0); HEMOGLOBIN 8.6 g/dL (13.5-17.5); IMMATURE GRANULOCYTES 0.4 % (0-5); LYMPHOCYTES 31.8 % (15-50); MCH 29.6 pg (26.0-34.0); MCHC 33.3 g/dL (31.0-37.0); MCV 88.7 fL (80.0-100.0); MEAN PLATELET VOLUME 9.7 fL (7.4-10.4); MONOCYTES 17.4 % (2-11); NEUTROPHILS 49.8 % (40-80); PLATELET COUNT 169 10x3/uL (130-400); RBC 2.91 10x6/uL (4.20-6.10); RDW 16.2 % (11.5-14.5); WBC 4.7 10x3/uL (4.8-10.8)
[2019-02-01 10:24] LABS: CALCIUM 7.6 mg/dL (8.5-10.1)
[2019-02-01 10:28] LABS: ANION GAP 17.7 mmol/L (8-16); CARBON DIOXIDE 25.9 mmol/L (21.0-32.0); CREATININE - SERUM 9.7 mg/dL (0.6-1.3); POTASSIUM - SERUM 4.6 mmol/L (3.5-5.1)
--- NOTE | 2019-02-01 17:07 | NUR ---
PT RESTING IN BED, DENIES ANY NEEDS AT THIS TIME, WILL CONT TO FOLLOW POC
[2019-02-01 17:28] VITALS: BP 147/84
--- NOTE | 2019-02-01 19:30 | NUR ---
RESUMING CARE, PT LAYING IN BED A&O BREATH SOUNDS EVEN AND UNLABORED RT HAND IV SL LEFT AVF , RESERVE LEFT ARM, NITRO PATCH ON CHEST, NO C/O PAIN OR DISTRESS AT THIS TIME CL IN REACH WILL CONT TO MONITOR
[2019-02-01 20:00] VITALS: BP 151/91
[2019-02-01 23:34] VITALS: BP 149/94
[2019-02-02 04:03] VITALS: BP 147/87
[2019-02-02 06:33] LABS: BASOPHILS 0 % (0-2); EOSINOPHILS 0.3 % (0-7); HEMATOCRIT 28.5 % (42.0-54.0); HEMOGLOBIN 9.5 g/dL (13.5-17.5); IMMATURE GRANULOCYTES 0.3 % (0-5); LYMPHOCYTES 33.6 % (15-50); MCH 29.4 pg (26.0-34.0); MCHC 33.3 g/dL (31.0-37.0); MCV 88.2 fL (80.0-100.0); MEAN PLATELET VOLUME 9.9 fL (7.4-10.4); MONOCYTES 17.2 % (2-11); NEUTROPHILS 48.6 % (40-80); PLATELET COUNT 186 10x3/uL (130-400); RBC 3.23 10x6/uL (4.20-6.10); RDW 15.9 % (11.5-14.5); WBC 5.8 10x3/uL (4.8-10.8)
[2019-02-02 06:51] LABS: ANION GAP 17.3 mmol/L (8-16); CALCIUM 8.3 mg/dL (8.5-10.1); CARBON DIOXIDE 26.8 mmol/L (21.0-32.0); CREATININE - SERUM 7.3 mg/dL (0.6-1.3); PHOSPHOROUS 6.3 mg/dL (2.5-4.9); POTASSIUM - SERUM 4.1 mmol/L (3.5-5.1)
--- NOTE | 2019-02-02 07:37 | NUR ---
ROUNDING DONE WITH PATIENT NOT HAVING AN IV.PER DR METZGER WE CAN LEAVE THIS OUT. ON HEART MONITOR SHOWING SR, HR 93. RES. LEFT ARM WITH AVF, + BRUIT AND THRILL. FOR DIALYSIS TODAY THEN POSSIBLE DISCHARGE.
[2019-02-02 08:54] VITALS: BP 169/98
[2019-02-02 09:13] LABS: HEPATITIS C ANTIBODY 6.7 S/CO RAT (0.0-0.9)
--- NOTE | 2019-02-02 09:47 | EC ---
PATIENT:ODETTE OH DATE OF SERVICE: 01/31/19 SEX: M MEDICAL RECORD: [id number] DATE OF : [birth year] LOCATION:D.M2 D.211 AGE OF PATIENT: 58 ADMISSION DATE: 01/31/19 REFERRING PHYSICIAN: INTERPRETING PHYSICIAN: THERESA HERRON MD ECHOCARDIOGRAM REPORT ECHO CHARGES 4 ECHO COMPLETE Date: 02/01/19 CLINICAL DIAGNOSIS: CARDIOMYOPATHY ECHOCARDIOGRAPHIC MEASUREMENTS (adult normal given) AC root (d.<3.7cm) 3.4 cm LV Septum d (<1.2 cm> 1.9 cm Valve Excursion 1.6 cm LV Septum (systole) 2.5 cm Left Atria (s.<4.0cm> 4.0 cm LVPW d(<1.2cm) 1.8 cm RV (d.<2.3cm) 1.9 cm LVPW (sytole) 2.6 cm LV diastole(<5.6CM) 3.9 cm MV E-F(>70mm/sec) cm LV systole 2.2 cm LVOT Diameter 1.9 cm MV exc.(>10mm) cm Est.ejection fraction (50-75%) % DOPPLER: LVIT cm/sec A 92.0 cm/sec E 55.0 cm/sec LA cm/sec RVSP 32.0 mmHg LVOT 120 cm/sec AOP1/2T m/s Asc. Ao 184 cm/sec RVOT 55.0 cm/sec RA cm/sec PA 114 cm/sec AV Gradient Peak 14.0 mmHg AV Mean 7.3 mmHg AV Area 1.2 cm MV Gradient Peak 4.2 mmHg MV Mean 2.0 mmHg MV Area cm COMMENTS: Administrative Personal Assistant: Gopal MILLEROE Driver Salesman: 3 Dr. Parker TAPE# PACS Pericardial Effusion N DATE OF SERVICE: 02/01/2019 ADEQUATE 2D, COLOR FLOW IMAGING, SPECTRAL DOPPLER, AND M-MODE LVH is present. LV internal dimension is normal. LV is mildly globally hypokinetic. EF is mildly reduced. Estimated EF is 40% to 45%. Aortic valve sclerosis is without stenosis by Doppler interrogation. Left atrium is normal at 4.0 cm. Mitral valve shows no prolapse. Trace MR. Right-sided chambers are grossly normal. Trace TR. ECHOCARDIOGRAM REPORT [id number] ODETTE OH TRANSINT:[id number] Voice Confirmation ID: [id number] DOCUMENT ID: [id number] THERESA HERRON MD at 0947 CC: [id number] DICTATION DATE: 02/01/19 150 SALES REPRESENTATIVE MARINE SUPPLIES: 02/01/19 1536 ADM IN [place] [id number] [place] [address]
--- NOTE | 2019-02-02 09:47 | CN ---
PATIENT NAME:ODETTE OH MEDICAL RECORD: [id number] : 64 LOCATION:[facility] D.2113 ADMIT DATE: 01/31/19 ACCOUNT: [id number] CONSULTING PHYSICIAN: THERESA HERRON MD REFERRING PHYSICIAN: REGINA HIGGINS MD DATE OF CONSULTATION: 02/01/2019 HISTORY OF PRESENT ILLNESS: A 58-year-old gentleman well known to our service who has a history of chronic chest pain. This is typically in spite negative rise in troponin. He actually underwent diagnostic angiography in June of last year by myself that showed entirely normal coronary anatomy from a vascular standpoint. He does have a cardiomyopathy, unknown if this is secondary to hypertensive, noncompliance, or previous cocaine/meth use. He was admitted with chest pain. His troponin is at baseline. No significant increase. We are asked to see him concerning his cardiovascular status. PAST MEDICAL HISTORY: Includes: 1. History of chronic kidney disease, on dialysis. 2. Hypertension. 3. Hyperlipidemia. ALLERGIES: MINOXIDIL. MEDICATIONS: Include Protonix 40 mg p.o. every day, Renagel 2400 mg t.i.d., aspirin 325 every day, amlodipine 5 every day, metoprolol 50 b.i.d., Imdur 60 every day, atorvastatin 10 every day, Cardura 2 mg b.i.d. SOCIAL HISTORY: Nonsmoker. He does report occasional recreational cocaine and marijuana use. No set exercise program. REVIEW OF SYSTEMS: The patient reports easy bruising but reports no swollen glands. The patient reports no fever, no night sweats, no significant weight gain, no significant weight loss. No significant exercise tolerance. The patient reports no dry eyes, no irritation, no vision change. Patient reports no difficulty hearing and no ear pain. Patient reports no frequent nose bleeds or nose and sinus problems. Patient reports on arm pain on exertion. No shortness of breath while lying down. No history of heart murmur. Patient reports no cough, no wheezing or coughing up blood. Patient reports no abdominal pain, no vomiting. Normal appetite. No diarrhea and not vomiting blood. No nausea and no constipation. Patient reports no incontinence. No difficulty urinating. No hematuria. No increased frequency. Patient reports no muscle aches. No weakness, no arthralgias, no back pain. No swelling of the extremities. Patient reports no abnormal mole, no jaundice, no rashes. Reports no loss of consciousness. No weakness and no numbness. No seizures, dizziness, or headaches. The patient reports no depression, no sleep disturbance, feeling safe in a relationship and no alcohol abuse. Patient reports on fatigue. Reports no runny nose or sinus pressure. No itching, no hives, and no frequent sneezing. PHYSICAL EXAMINATION: GENERAL: No acute distress, appears stated age. VITAL SIGNS: Blood pressure 160/96, pulse 101 and regular. HEENT: Normocephalic, atraumatic. NECK: No bruits noted. HEART: Regular, II/ systolic ejection murmur. S4 gallop is present. CONSULT REPORT [id number] ODETTE OH LUNGS: Actually good air excursion. ABDOMEN: Soft, nontender. EXTREMITIES: Pulses 2+. No edema. NEUROLOGIC: Grossly intact. DIAGNOSTIC DATA: ECG shows voltage criteria for LVH. IMPRESSION: Doubt cardiac etiology of chest pain. I would check echocardiograph study to assess any change in LV function from previous. Further recommendations based on above. TRANSINT:[id number] Voice Confirmation ID: [id number] DOCUMENT ID: [id number] THERESA HERRON MD at 0947 CC: [id number] DICTATION DATE: 02/01/19831 WIRE BOUND BOX MACHINE OPERATOR: 02/01/19924 ADM IN [place] [id number] [place] [address]
--- NOTE | 2019-02-02 10:55 | NUR ---
TO DIALYSIS VIA CHAIR.
--- NOTE | 2019-02-02 10:56 | NUR ---
PATIENT TO REPORT THAT HE IS NOT SITTING IN A CHAIR FOR DIALYSIS, HE IS GOING DOWN BY BED.
--- NOTE | 2019-02-02 12:43 | MORECARE ---
CASE MANAGEMENT DISCHARGE SUMMARY PATIENT: ODETTE OH UNIT: [id number] ADM DATE: 01/31/19 AGE: 58 : 64 SEX: M ROOM/BED: D.2113 AUTHOR: ETHAN MAHONEY PHYSICIAN: REFERRING PHYSICIAN: REGINA HIGGINS MD DATE OF SERVICE: 02/02/19 Discharge Plan Patient Name: ODETTE OH [facility] [facility] 1960 Planned Disposition: Home Anticipated Discharge Date: 02/02/19 Discharge Date: Expected LOS: 2 Initial Reviewer: [email or web address] Initial Review Date: 02/02/2019 Generated: 02/02/19 1:43 pm Patient Name: ODETTE OH Page [id number] at 1243 All edits/amendments must be made on the electronic document DICTATION DATE: 02/02/19 1243 PLANT SPECIALIST: LUH 02/02/19 1243 RPT#: [id number] DC DATE: STATUS: ADM IN [facility] [address] [place] [address] END OF REPORT
--- NOTE | 2019-02-02 12:52 | MORECARE ---
CASE MANAGEMENT DISCHARGE SUMMARY PATIENT: ODETTE OH UNIT: [id number] ADM DATE: 01/31/19 AGE: 58 : 64 SEX: M ROOM/BED: D.9145 AUTHOR: MARU,DOC PHYSICIAN: REFERRING PHYSICIAN: REGINA HIGGINS MD DATE OF SERVICE: 02/02/19 Discharge Plan Patient Name: ODETTE OH Facility: [facility]:[place] : 1960 Planned Disposition: Home Anticipated Discharge Date: 02/02/19 Discharge Date: Expected LOS: 2 Initial Reviewer: [email or web address] Initial Review Date: 02/02/2019 Generated: 02/02/19 1:52 pm Comments DCP- Discharge Planning Updated by [email or web address]: Jeff Christopher on 02/02/19 11:[address] Patient Name: ODETTE OH Admission Status: ER Accout number: [id number] Admission Date: 01-31-2019 : 1960 Admission Diagnosis:HYPERKALEMIA Attending: REGINA HIGGINS Current LOS: 2 Anticipated DC Date: 02-02-2019 Planned Disposition: Home Primary Insurance: MEDICAID [place] Discharge Planning Comments: CM RECEIVED DISCHARGE PLANNING ORDER, MET WITH PT IN ROOM TO DISCUSS DISCHARGE PLANNING AND NEEDS. PT REPORTS LIVING AT HOME INDEPENDENTLY WITH HIS AUNT AT [address] [place] [address] [place]. PT HAS A CANE WITH NO MEDICAL EQUIPMENT PROVIDER PREFERENCE. PT HAS NO OUTSIDE SERVICES ASSISTING IN THE HOME. PT GOES TO DIALYSIS AT [facility] ON TUESDAY AND FRIDAYS. PT HAS BEEN PAYING FRIENDS FOR TRANSPORTATION. PT REPORTS HE HAS TO GET HIS MEDICAID TRANSPORTATION SET BACK UP FOR DIALYSIS. CM DISCUSSED AVAILABILITY OF HOME HEALTH, REHAB SERVICES AND MEDICAL EQUIPMENT. PT WILL NOT GO TO A DETENTION OUTSIDE OF [place]. ALL OF THE DETENTION'S IN [place] HAVE PREVIOUSLY DECLINED. PT STATES HE IS GOING HOME AND "DO WHAT I BEEN DOING." PT DENIES DISCHARGE NEEDS, PT ASKED CM TO CALL MEDICAID TRANSPORT TO PICK HIM UP FOR DISCHARGE HOME. CM CALLED MEDICAID TRANSPORTATION, , SPOKE TO ABE WHO ADVISED PT HAS NEVER CHANGED HIS ADDRESS OR COUNTY OF RESIDENCE AND CANNOT GET TRANSPORTATION OUTSIDE [facility], WHERE HE IS REGISTERED. CM IS NOT ABLE TO ASSIST WITH THIS; PT HAS TO GO TO THE [facility] OFFICE AND CHANGE ADDRESS, COUNTY OF RES[place]ENCE AND REQUEST TRANPORTATION RETAIL ACCOUNT REPRESENTATIVE REASSIGNMENT IN PERSON. CM ADVISED OF THIS FACT AND PROVIDED PT WITH WRITTEN INSTRUCTIONS AND CONTACT INFORMATION FOR DEPARTMENT OF HUMAN SERVICES IN [facility]. PT REPORTS UNDERSTANDING, WILL CONTACT "SOMEONE" FOR TRANSPORTATION AND ASK HIS DAUGHTER TO HELP WITH ARRANGING THE MEDICAID TRANSPORTATION. Local Company Truck Driver: Jeff Christopher DCPIA - Discharge Planning Initial Assessment Updated by [email or web address]: Jeff Christopher on 02/02/19 12:44 pm * Is the patient Alert and Oriented? Yes * How many steps to enter\\exit or inside your home? * PCP DR. FRANKLIN IN [place] * Pharmacy [facility] IN [place] * Preadmission Environment Home with Family * ADLs Independent * Equipment Cane * Other Equipment NO MEDICAL EQUIPMENT PROVIDER PREFERENCE * List name and contact numbers for known caregivers / representatives who currently or will assist patient after discharge: ROMA OH, DTR, , PAUL LIANG, BROTHER, JENNIFER LIANG, SISTER, * Verbal permission to speak to the caregivers and representatives has been obtained from the patient. N/A * Community resources currently utilized Other * Please name any agencies selected above. OUTPATIENT DIALYSIS AT [facility] ON TUESDAY AND TUESDAY; PT HAS BEEN HAVING FRIENDS TRANSPORT TO AND FROM DIALYSIS * Additional services required to return to the preadmission environment? No * Can the patient safely return to the preadmission environment? Yes * Has this patient been hospitalized within the prior 30 days at any hospital? No Last DP export: 02/02/19 11:43 a Patient Name: ODETTE OH Page [id number] at 1252 All edits/amendments must be made on the electronic document DICTATION DATE: 02/02/19 1251 REEXAMINER: LUH 02/02/19 1251 RPT#: [id number] GA DATE: STATUS: ADM IN [facility] [address] [facility] [place] [address] END OF REPORT
--- NOTE | 2019-02-02 13:07 | NUR ---
RETURNS FROM DIALYSIS.
--- NOTE | 2019-02-02 13:09 | NUR ---
PAGE INTO HODA SKINNER APN FOR D/C ORDERS.
--- NOTE | 2019-02-02 13:28 | NUR ---
Nutrition Follow Up: Chart reviewed Diet: Renal ADA PO Intake: 92% meal avg No BM since admit Meds and labs reviewed Rec continue current diet. RD following.
--- NOTE | 2019-02-02 15:02 | NUR ---
TYLENOL GIVEN FOR DISCFORT TO CHEST 02/21.
--- NOTE | 2019-02-02 15:06 | MORECARE ---
CASE MANAGEMENT DISCHARGE SUMMARY PATIENT: ODETTE OH UNIT: [id number] ADM DATE: 01/31/19 AGE: 58 : 64 SEX: M ROOM/BED: D.6323 AUTHOR: MARU,DOC PHYSICIAN: REFERRING PHYSICIAN: REGINA HIGGINS MD DATE OF SERVICE: 02/02/19 Discharge Plan Patient Name: ODETTE OH Facility: [facility]:[place] : 1960 Planned Disposition: Home Anticipated Discharge Date: 02/02/19 Discharge Date: Expected LOS: 2 Initial Reviewer: [id number] Initial Review Date: 02/02/2019 Generated: 02/02/19 4:05 pm Comments DCP- Discharge Planning Updated by [email or web address]: Jeff Christopher on 02/02/19 11:[address] Patient Name: ODETTE OH Admission Status: ER Accout number: [id number] Admission Date: 01-31-2019 : 1960 Admission Diagnosis:HYPERKALEMIA Attending: REGINA HIGGINS Current LOS: 2 Anticipated DC Date: 02-02-2019 Planned Disposition: Home Primary Insurance: MEDICAID [place] Discharge Planning Comments: CM RECEIVED DISCHARGE PLANNING ORDER, MET WITH PT IN ROOM TO DISCUSS DISCHARGE PLANNING AND NEEDS. PT REPORTS LIVING AT HOME INDEPENDENTLY WITH HIS AUNT AT [address] [place] [address] [place]. PT HAS A CANE WITH NO MEDICAL EQUIPMENT PROVIDER PREFERENCE. PT HAS NO OUTSIDE SERVICES ASSISTING IN THE HOME. PT GOES TO DIALYSIS AT [facility] ON TUESDAY AND FRIDAYS. PT HAS BEEN PAYING FRIENDS FOR TRANSPORTATION. PT REPORTS HE HAS TO GET HIS MEDICAID TRANSPORTATION SET BACK UP FOR DIALYSIS. CM DISCUSSED AVAILABILITY OF HOME HEALTH, REHAB SERVICES AND MEDICAL EQUIPMENT. PT WILL NOT GO TO A CARE HOME OUTSIDE OF [place]. ALL OF THE CARE HOME'S IN [place] HAVE PREVIOUSLY DECLINED. PT STATES HE IS GOING HOME AND "DO WHAT I BEEN DOING." PT DENIES DISCHARGE NEEDS, PT ASKED CM TO CALL MEDICAID TRANSPORT TO PICK HIM UP FOR DISCHARGE HOME. CM CALLED MEDICAID TRANSPORTATION, , SPOKE TO ABE WHO ADVISED PT HAS NEVER CHANGED HIS ADDRESS OR COUNTY OF RESIDENCE AND CANNOT GET TRANSPORTATION OUTSIDE [facility], WHERE HE IS REGISTERED. CM IS NOT ABLE TO ASSIST WITH THIS; PT HAS TO GO TO THE THE MEDICAL CENTER OFFICE AND CHANGE ADDRESS, COUNTY OF RESIDENCE AND REQUEST TRANPORTATION WINDOWS AND DOORS INSTALLER REASSIGNMENT IN PERSON. CM ADVISED OF THIS FACT AND PROVIDED PT WITH WRITTEN INSTRUCTIONS AND CONTACT INFORMATION FOR DEPARTMENT OF HUMAN SERVICES IN [facility]. PT REPORTS UNDERSTANDING, WILL CONTACT "SOMEONE" FOR TRANSPORTATION AND ASK HIS DAUGHTER TO HELP WITH ARRANGING THE MEDICAID TRANSPORTATION. Dermatology Physician: Jeff Christopher DCPIA - Discharge Planning Initial Assessment Updated by [id number]: Jeff Christopher on 02/02/19 12:44 pm * Is the patient Alert and Oriented? Yes * How many steps to enter\\exit or inside your home? * PCP DR. FRANKLIN IN [place] * Pharmacy [facility] IN [place] * Preadmission Environment Home with Family * ADLs Independent * Equipment Cane * Other Equipment NO MEDICAL EQUIPMENT PROVIDER PREFERENCE * List name and contact numbers for known caregivers / representatives who currently or will assist patient after discharge: ROMA OH, DTR, , PAUL LIANG, BROTHER, JENNIFER LIANG, SISTER, * Verbal permission to speak to the caregivers and representatives has been obtained from the patient. N/A * Community resources currently utilized Other * Please name any agencies selected above. OUTPATIENT DIALYSIS AT [facility] ON TUESDAY AND TUESDAY; PT HAS BEEN HAVING FRIENDS TRANSPORT TO AND FROM DIALYSIS * Additional services required to return to the preadmission environment? No * Can the patient safely return to the preadmission environment? Yes * Has this patient been hospitalized within the prior 30 days at any hospital? No Last DP export: 02/02/19 11:52 a Patient Name: ODETTE OH Page [id number] at 1506 All edits/amendments must be made on the electronic document DICTATION DATE: 02/02/19 1505 HOSPICE AIDE: LUH 02/02/19 1505 RPT#: [id number] [place] DATE: STATUS: ADM IN [facility] [address] [facility] [place] [address] END OF REPORT
--- NOTE | 2019-02-02 15:18 | MORECARE ---
CASE MANAGEMENT DISCHARGE SUMMARY PATIENT: ODETTE OH UNIT: [id number] ADM DATE: 01/31/19 AGE: 58 : 64 SEX: M ROOM/BED: D.2923 AUTHOR: MARU,DOC PHYSICIAN: REFERRING PHYSICIAN: REGINA HIGGINS MD DATE OF SERVICE: 02/02/19 Discharge Plan Patient Name: ODETTE OH Facility: [facility]:[place] : 1960 Planned Disposition: Home Anticipated Discharge Date: 02/02/19 Discharge Date: Expected LOS: 2 Initial Reviewer: [email or web address] Initial Review Date: 02/02/2019 Generated: 02/02/19 4:18 pm Comments DCP- Discharge Planning Updated by [email or web address]: Jeff Hedrick on 02/02/19 2:[address] Patient Name: ODETTE OH Admission Status: ER Accout number: [id number] Admission Date: 01-31-2019 : 1960 Admission Diagnosis:HYPERKALEMIA Attending: REGINA HIGGINS Current LOS: 2 Anticipated DC Date: 02-02-2019 Planned Disposition: Home Primary Insurance: MEDICAID [place] Discharge Planning Comments: CM RECEIVED DISCHARGE PLANNING ORDER, MET WITH PT IN ROOM TO DISCUSS DISCHARGE PLANNING AND NEEDS. PT REPORTS LIVING AT HOME INDEPENDENTLY WITH HIS AUNT AT [address] [place] [address] IN [place]. PT HAS A CANE WITH NO MEDICAL EQUIPMENT PROVIDER PREFERENCE. PT HAS NO OUTSIDE SERVICES ASSISTING IN THE HOME. PT GOES TO DIALYSIS AT [facility] ON TUESDAY AND FRIDAYS. PT HAS BEEN PAYING FRIENDS FOR TRANSPORTATION. PT REPORTS HE HAS TO GET HIS MEDICAID TRANSPORTATION SET BACK UP FOR DIALYSIS. CM DISCUSSED AVAILABILITY OF HOME HEALTH, REHAB SERVICES AND MEDICAL EQUIPMENT. PT WILL NOT GO TO A LONGTERM OUTSIDE OF [place]. ALL OF THE LONGTERM'S IN [place] HAVE PREVIOUSLY DECLINED. PT STATES HE IS GOING HOME AND "DO WHAT I BEEN DOING." PT DENIES DISCHARGE NEEDS, PT ASKED CM TO CALL MEDICAID TRANSPORT TO PICK HIM UP FOR DISCHARGE HOME. CM CALLED MEDICAID TRANSPORTATION, , SPOKE TO ABE WHO ADVISED PT HAS NEVER CHANGED HIS ADDRESS OR COUNTY OF RESIDENCE AND CANNOT GET TRANSPORTATION OUTSIDE [facility], WHERE HE IS REGISTERED. CM IS NOT ABLE TO ASSIST WITH THIS; PT HAS TO GO TO THE [facility] OFFICE AND CHANGE ADDRESS, COUNTY OF RESIDENCE AND REQUEST TRANPORTATION SVP BUSINESS DEVELOPMENT REASSIGNMENT IN PERSON. CM ADVISED OF THIS FACT AND PROVIDED PT WITH WRITTEN INSTRUCTIONS AND CONTACT INFORMATION FOR DEPARTMENT OF HUMAN SERVICES IN [facility]. PT REPORTS UNDERSTANDING, WILL CONTACT "SOMEONE" FOR TRANSPORTATION AND ASK HIS DAUGHTER TO HELP WITH ARRANGING THE MEDICAID TRANSPORTATION. Polymer Tester: Jeff Hedrick Appended by Jeff Hedrick on 02/02/2019 15:08 CDT: CM MET WITH PT IN ROOM, ASKED IF HE HAD ARRANGED TRANSPORT HOME YET. PT HAS NOT CALLED ANYONE. CM OFFERED TO CALL FAMILY. PT PROVIDED HIS DAUGHTER'S NUMBER. CM CALLED PEYTON AT [phone]. PEYTON WILL CALL HER FATHER IN ROOM REGARDING TRANSPORTATION HOME TODAY. JEFF HEDRICK, CASE MANAGEMENT DCPIA - Discharge Planning Initial Assessment Updated by [email or web address]: Jeff Hedrick on 02/02/19 12:44 pm * Is the patient Alert and Oriented? Yes * How many steps to enter\\exit or inside your home? * PCP DR. FRANKLIN IN [place] * Pharmacy [facility] IN [place] * Preadmission Environment Home with Family * ADLs Independent * Equipment Cane * Other Equipment NO MEDICAL EQUIPMENT PROVIDER PREFERENCE * List name and contact numbers for known caregivers / representatives who currently or will assist patient after discharge: ROMA OH DTR, , PAUL LIANG, BROTHER, JENNIFER LIANG, SISTER, * Verbal permission to speak to the caregivers and representatives has been obtained from the patient. N/A * Community resources currently utilized Other * Please name any agencies selected above. OUTPATIENT DIALYSIS AT [facility] ON TUESDAY AND TUESDAY; PT HAS BEEN HAVING FRIENDS TRANSPORT TO AND FROM DIALYSIS * Additional services required to return to the preadmission environment? No * Can the patient safely return to the preadmission environment? Yes * Has this patient been hospitalized within the prior 30 days at any hospital? No Last DP export: 02/02/19 2:05 p Patient Name: ODETTE OH Page [id number] at 9208 All edits/amendments must be made on the electronic document DICTATION DATE: 02/02/191516 TAILINGS DAM LABORER: LUH 02/02/191516 RPT#: [id number] DC DATE: STATUS: ADM IN [facility] [address] [place] [address] END OF REPORT
--- NOTE | 2019-02-02 15:23 | NUR ---
PATIENT IS INFORMED THAT HIS PAPERWORK IS DONE. HEART MONITOR IS TURNED IN. PATIENT STATES THAT HIS DAUGHTER IS GOING TO COME FROM [place] FOR HIS RIDE.
[2019-02-02 16:15] VITALS: BP 136/97
--- NOTE | 2019-02-02 17:03 | NUR ---
PER PATIENT REQUEST I TRIED CALLING PEYTON (DAUGHTER) NO ANSWER OR VOICE MAIL. THIS IS RELAYED TO THE PATIENT.
--- NOTE | 2019-02-02 17:44 | NUR ---
TRIED AGAIN TO CALL PEYTON (DAUGHTER) WITH NO ANSWER. [phone]
--- NOTE | 2019-02-02 19:36 | NUR ---
RECIEVED REPORT ON PT FROM OLLIE ALVAREZ. PT IS ALERT AND ORIENTED AT THIS TIME LAYING IN BED. VITALS STABLE. PT HAS BEEN DISCHARGED AND WAITING FOR DAUGHTER FOR A RIDE. PT IS ON TELEMETRY RUNNING 88 SINUS RYTHEM. BED LOW CALL LIGHT WITHIN REACH. WILL CONTINUE TO MONITOR.
[2019-02-02 20:21] VITALS: BP 130/83
--- NOTE | 2019-02-02 21:58 | NUR ---
PT RESTING IN BED ALERT AND ORIENTED X4. RR EVEN AND UNLABORED. PT STILL WAITING FOR A RIDE TO PICK HIM UP. PT HAS BEEN DISCHARED.
--- NOTE | 2019-02-02 22:58 | NUR ---
JUST CALLED MR. OH'S MARIO TODD. SHE STATES THAT SHE STILL HAS NOT FOUND A RIDE FOR FOR HIM AND THAT SHE IS CURRENTLY WORKING ON IT.
[2019-02-03 00:09] VITALS: BP 139/88
--- NOTE | 2019-02-03 02:15 | NUR ---
I have reviewed this patient and I concur with the Shift Assessment completed by the Licensed Practical Nurse today this shift. PT REMAINS INPATIENT DUE TO FAMILY NOT COMING TO PICK HIM UP AFTER HE WAS DISCHARGED. FAMILY WAS CONTACTED NUMEROUS TIMES THROUGHOUT THE EVENING AND EACH TIME SAID THEY WERE WORKING ON GETTING A RIDE TO COME AND GET THE PATIENT. ON THE LAST CALL FROM THE PRIMARY NURSE TO THE DAUGHTER, THE NURSE WAS TOLD THAT NO ONE WOULD BE COMING TONIGHT. PSYCHIATRIC CNS INFORMED.
--- NOTE | 2019-02-03 02:51 | NUR ---
PT ALERT AND ORIENTED X4. PT WATCHING TELEVISION AT THIS TIME. VITALS STABLE. NO S/S OF DISTRESS. BED LOW CALL LIGHT WITHIN REACH. WILL CONTINUE TO MONITOR.
[2019-02-03 03:45] VITALS: BP 147/92
--- NOTE | 2019-02-03 07:00 | NUR ---
RECEIVED REPORT. ASSUMED CARE OF PATIENT. PATIENT RESTING ON RIGHT LATERAL SIDE WITH EYES CLOSED. RESP EVEN AND UNLABORED. PATIENT HAS DISCHARGE PAPERWORK PRINTED AND WAS SUPPOSED TO DISCHARGE LAST PM, BUT RECEIVED IN REPORT THAT PATIENT DOES NOT HAVE A RIDE TO [place] AND CASE MANAGMENT IS WORKING ON GETTING HIM HOME. CALL LIGHT WITHIN REACH. NO DISTRESS.
[2019-02-03 08:02] VITALS: BP 164/98
--- NOTE | 2019-02-03 09:04 | NUR ---
DIET REQUEST PLACED FOR BISCUITS AND GRAVY. PER RENAL PRACTITIONER, LYUDMILA, PATIENT MAY HAVE GRAVY AND BISCUIT.
--- NOTE | 2019-02-03 09:22 | MORECARE ---
CASE MANAGEMENT DISCHARGE SUMMARY PATIENT: ODETTE OH UNIT: [id number] ADM DATE: 01/31/19 AGE: 58 : 64 SEX: M ROOM/BED: D.2113 AUTHOR: MARU,DOC PHYSICIAN: REFERRING PHYSICIAN: REGINA HIGGINS MD DATE OF SERVICE: 02/03/19 Discharge Plan Patient Name: ODETTE OH Facility: [facility]:[place] : 1960 Planned Disposition: Home Anticipated Discharge Date: 02/02/19 Discharge Date: Expected LOS: 2 Initial Reviewer: [id number] Initial Review Date: 02/02/2019 Generated: 02/03/19 10:22 am Comments DCP- Discharge Planning Updated by [id number]: Sofy Pathak on 02/03/19 8:[address] pt had to have hospital supply Taxi for ride home. 45.00 was cost of taxi to Pts home . This was approved by Karissa Ramon in DCP- Discharge Planning Updated by [id number]: Jeff Hedrick on 02/02/19 2:[address] Patient Name: ODETTE OH Admission Status: ER Accout number: [id number] Admission Date: 01-31-2019 : 1960 Admission Diagnosis:HYPERKALEMIA Attending: REGINA HIGGINS Current LOS: 2 Anticipated DC Date: 02-02-2019 Planned Disposition: Home Primary Insurance: MEDICAID [place] Discharge Planning Comments: CM RECEIVED DISCHARGE PLANNING ORDER, MET WITH PT IN ROOM TO DISCUSS DISCHARGE PLANNING AND NEEDS. PT REPORTS LIVING AT HOME INDEPENDENTLY WITH HIS AUNT AT [address] [place] [address] IN [place]. PT HAS A CANE WITH NO MEDICAL EQUIPMENT PROVIDER PREFERENCE. PT HAS NO OUTSIDE SERVICES ASSISTING IN THE HOME. PT GOES TO DIALYSIS AT [facility] ON TUESDAY AND FRIDAYS. PT HAS BEEN PAYING FRIENDS FOR TRANSPORTATION. PT REPORTS HE HAS TO GET HIS MEDICAID TRANSPORTATION SET BACK UP FOR DIALYSIS. CM DISCUSSED AVAILABILITY OF HOME HEALTH, REHAB SERVICES AND MEDICAL EQUIPMENT. PT WILL NOT GO TO A LONGTERM OUTSIDE OF [place]. ALL OF THE LONGTERM'S IN [place] HAVE PREVIOUSLY DECLINED. PT STATES HE IS GOING HOME AND "DO WHAT I BEEN DOING." PT DENIES DISCHARGE NEEDS, PT ASKED CM TO CALL MEDICAID TRANSPORT TO PICK HIM UP FOR DISCHARGE HOME. CM CALLED MEDICAID TRANSPORTATION, , SPOKE TO ABE WHO ADVISED PT HAS NEVER CHANGED HIS ADDRESS OR COUNTY OF RESIDENCE AND CANNOT GET TRANSPORTATION OUTSIDE [facility], WHERE HE IS REGISTERED. CM IS NOT ABLE TO ASSIST WITH THIS; PT HAS TO GO TO THE [facility] OFFICE AND CHANGE ADDRESS, COUNTY OF RESIDENCE AND REQUEST TRANPORTATION CUSTOMER SUPPORT EXECUTIVE REASSIGNMENT IN PERSON. CM ADVISED OF THIS FACT AND PROVIDED PT WITH WRITTEN INSTRUCTIONS AND CONTACT INFORMATION FOR DEPARTMENT OF HUMAN SERVICES IN [facility]. PT REPORTS UNDERSTANDING, WILL CONTACT "SOMEONE" FOR TRANSPORTATION AND ASK HIS DAUGHTER TO HELP WITH ARRANGING THE MEDICAID TRANSPORTATION. Stove Fitter: Jeff Hedrick Appended by Jeff Hedrick on 02/02/2019 15:08 CDT: CM MET WITH PT IN ROOM, ASKED IF HE HAD ARRANGED TRANSPORT HOME YET. PT HAS NOT CALLED ANYONE. CM OFFERED TO CALL FAMILY. PT PROVIDED HIS DAUGHTER'S NUMBER. CM CALLED PEYTON AT [phone]. PEYTON WILL CALL HER FATHER IN ROOM REGARDING TRANSPORTATION HOME TODAY. JEFF HEDRICK, CASE MANAGEMENT DCPIA - Discharge Planning Initial Assessment Updated by [id number]: Jeff Hedrick on 02/02/19 12:44 pm * Is the patient Alert and Oriented? Yes * How many steps to enter\\exit or inside your home? * PCP DR. FRANKLIN IN [place] * Pharmacy [facility] IN [place] * Preadmission Environment Home with Family * ADLs Independent * Equipment Cane * Other Equipment NO MEDICAL EQUIPMENT PROVIDER PREFERENCE * List name and contact numbers for known caregivers / representatives who currently or will assist patient after discharge: ROMA OH DTR, , PAUL LIANG, BROTHER, JENNIFER LIANG, SISTER, * Verbal permission to speak to the caregivers and representatives has been obtained from the patient. N/A * Community resources currently utilized Other * Please name any agencies selected above. OUTPATIENT DIALYSIS AT [facility] ON TUESDAY AND TUESDAY; PT HAS BEEN HAVING FRIENDS TRANSPORT TO AND FROM DIALYSIS * Additional services required to return to the preadmission environment? No * Can the patient safely return to the preadmission environment? Yes * Has this patient been hospitalized within the prior 30 days at any hospital? No Last DP export: 02/02/19 2:18 p Patient Name: ODETTE OH Page 98496 at 0922 All edits/amendments must be made on the electronic document DICTATION DATE: 02/03/19921 FILLING CARRIER: LUH 02/03/19921 RPT#: [id number] DC DATE: STATUS: ADM IN [facility] [address] [place] [address] END OF REPORT
--- NOTE | 2019-02-03 09:57 | NUR ---
1242 PATIENT PROVIDED WITH DISCHARGE INSTRUCTIONS. THIS TRIMMER PRESS CLIPPINGS ENCOURAGED PATIENT TO CALL AND GET HIS ADDRESS CHANGED SO MEDICAID CAN PROVIDE HIM WITH TRANSPORTATION. PATIENT VERY RUDE/INAPPROPRIATE, HOLLORING AT THIS TRIMMER PRESS CLIPPINGS. PATIENT TAKES NO RESPONSIBILITY IN HIS CARE. DISCHARGE INSTRUCTIONS SIGNED. NO IV TO REMOVE. PATIENT DRESSED SELF. 0809 PATIENT LEFT UNIT VIA WHEELCHAIR. PATIENT TAKEN DOWNSTARIS TO WAIT FOR HIS TAXI THAT IS BEING PROVIDED FOR BY [facility]. PATIENT LEFT UNIT WITH ALL PERSONAL BELONGINGS. PATIENT IN NO DISTRESS UPON LEAVING UNIT.
== END 2019-02-03 09:57 | disposition home or self-care (01) | DRG 291 ==
LOC: D.ER 20:38 → OBSVTIME 01-31 00:18 → D.M2 01-31 00:18
PROVIDERS: Family Medicine; Internal Medicine Nephrology; ADMIT Internal Medicine; ATTEND Internal Medicine
PROC: 5A1D70Z Performance of Urinary Filtration, Intermittent, Less than 6 Hours Per Day (ICD-10-PCS; principal; 2019-01-31)
DX: I13.2 Hypertensive heart and chronic kidney disease with heart failure and with stage 5 chronic kidney disease, or end stage renal disease (principal); N18.6 End stage renal disease; E87.5 Hyperkalemia; Z99.2 Dependence on renal dialysis; Z91.15 Patient's noncompliance with renal dialysis; E11.22 Type 2 diabetes mellitus with diabetic chronic kidney disease; I50.9 Heart failure, unspecified; J44.9 Chronic obstructive pulmonary disease, unspecified

== ENCOUNTER 2019-02-09 09:13 | Inpatient (IN) | payer MEDICAID ==
[2019-02-09 10:00] VITALS: BP 188/110
[2019-02-09 10:04] LABS: BASOPHILS 0 % (0-2); EOSINOPHILS 0.1 % (0-7); HEMOGLOBIN 8.5 g/dL (13.5-17.5); IMMATURE GRANULOCYTES 0.2 % (0-5); LYMPHOCYTES 20.8 % (15-50); MCH 29.6 pg (26.0-34.0); MCV 87.1 fL (80.0-100.0); MONOCYTES 11.6 % (2-11); NEUTROPHILS 67.3 % (40-80); RBC 2.87 10x6/uL (4.20-6.10); RDW 16.1 % (11.5-14.5); WBC 8.5 10x3/uL (4.8-10.8)
[2019-02-09 10:11] LABS: PLATELET COUNT 111 10x3/uL (130-400)
--- NOTE | 2019-02-09 10:12 | NUR ---
PLACED ON 2L NASAL CANNULA
[2019-02-09 10:26] LABS: INR 1.32 (0.85-1.17); PROTIME 15.9 SECONDS (11.6-15.0)
[2019-02-09 10:27] LABS: APTT 37.6 SECONDS (22.8-39.4)
[2019-02-09 10:43] LABS: ALBUMIN 3.2 g/dL (3.4-5.0); ALKALINE PHOSPHATASE 85 U/L (46-116); ALT (SGPT) 39 U/L (10-68); BILIRUBIN - TOTAL 0.57 mg/dL (0.2-1.3); CALC OSMOLALITY 327 mosm/kg (275-300); CALCIUM 7.2 mg/dL (8.5-10.1); CARBON DIOXIDE 12.7 mmol/L (21.0-32.0); CHLORIDE - SERUM 98 mmol/L (98-107); CREATINE KINASE 208 UL (21-232); CREATININE - SERUM 16.1 mg/dL (0.6-1.3); GLUCOSE 83 mg/dL (74-106); PRO BNP 64866 pg/mL (0-125); PROTEIN - SERUM 8.6 g/dL (6.4-8.2); SODIUM 137 mmol/L (136-145); UREA NITROGEN 167 mg/dL (7-18); eGFR NON AFRICAN AMERICAN 3 mL/min (90-120)
[2019-02-09 10:45] LABS: POTASSIUM - SERUM 6.1 mmol/L (3.5-5.1)
--- NOTE | 2019-02-09 10:46 | NUR ---
RCVD TC FROM LAB: CRITICAL VALUES: CREAT= 16.1 BUN= 167 K+ = 6.1 TROPONIN= 0.120 DR MAHONEY NOTIFED
[2019-02-09 11:27] VITALS: BP 167/106
[2019-02-09 12:05] VITALS: BP 193/108
--- NOTE | 2019-02-09 12:05 | NUR ---
FSBS= 69 MG/DL
--- NOTE | 2019-02-09 12:10 | NUR ---
SANDWICH AND JUICE GIVEN. APPETITE GOOD
--- NOTE | 2019-02-09 12:17 | NUR ---
REPORT CALLED TO OLLIE CURTIS BY SBAR FORMAT
--- NOTE | 2019-02-09 12:30 | NUR ---
TRANSPORTED TO FLOOR, CONDITION STABLE
--- NOTE | 2019-02-09 12:55 | NUR ---
TRANSFER FROM ER BY STRETCHER. OREINTED TO ROOM. CALL LIGHT IN REACH. WILL CONT. PLAN OF CARE.
--- NOTE | 2019-02-09 12:56 | NUR ---
RECEIVED PT FROM ER VIA STRETCHER. PT IS AAO AND UP AD LANDRY. RR EVEN AND UNLABORED ON 2L 02. PT CURRENTLY SITTING UP EATING LUNCH. VSS AND WNL. ABX CURRENTLY INFUSING R.WRIST PIV. PT IS MOANING AND GROANING OUT STATING HE IS HURTING ALL OVER IN PAIN BUT CANNOT SPECIFY THE TYPE, LOCATION, OR SEVERITY. HISTORY, MED REQ, AND QUICKSTART COMPLETE. WILL CTM.
[2019-02-09 13:32] VITALS: BP 174/103; BMI 23.4
[2019-02-09 14:29] VITALS: BMI 23.3
[2019-02-09 15:43] VITALS: BP 163/109
--- NOTE | 2019-02-09 20:02 | NUR ---
REPORT RECIEVED AND ROUNDING COMPLETE. PATIENT LAYING IN BED EYES CLOSED BREATHIGN SHALLOW AND EVEN. PATIENT IS SHOWING NO S/SX OF DISTRESS. CALL LIGHT WIHTIN REACH AND BED IN LOWEST POSITION. BED ALARM IS ON.
[2019-02-09 20:25] VITALS: BP 173/99
[2019-02-10 00:37] VITALS: BP 174/86
--- NOTE | 2019-02-10 01:04 | NUR ---
PATIENT LAYING IN BED EYES CLOSED BREATHING EVEN AND UNLABORED NO S/SX OF DISTRESS AT THIS TIME. CALL LIGHT WITHIN REACH AND BED IN LOWEST POSITION.
--- NOTE | 2019-02-10 02:10 | NUR ---
ASSUMMING CARE OF PATIENT. RESTING IN BED. AGREE WITH CONSTRUCTION TRADES TEACHER ASSESSMENT. MONITOR AND CPOC.
[2019-02-10 03:47] VITALS: BP 156/83
[2019-02-10 07:25] LABS: BASOPHILS 0.2 % (0-2); EOSINOPHILS 0.3 % (0-7); HEMATOCRIT 23.6 % (42.0-54.0); HEMOGLOBIN 7.8 g/dL (13.5-17.5); IMMATURE GRANULOCYTES 0.5 % (0-5); LYMPHOCYTES 23.6 % (15-50); MCH 28.8 pg (26.0-34.0); MCHC 33.1 g/dL (31.0-37.0); MCV 87.1 fL (80.0-100.0); MEAN PLATELET VOLUME 9.4 fL (7.4-10.4); MONOCYTES 11.8 % (2-11); NEUTROPHILS 63.6 % (40-80); PLATELET COUNT 101 10x3/uL (130-400); RBC 2.71 10x6/uL (4.20-6.10); RDW 16.2 % (11.5-14.5); WBC 6.1 10x3/uL (4.8-10.8)
[2019-02-10 07:31] LABS: ALBUMIN 2.8 g/dL (3.4-5.0); BILIRUBIN - TOTAL 0.5 mg/dL (0.2-1.3); CALCIUM 7.5 mg/dL (8.5-10.1); PROTEIN - SERUM 7.9 g/dL (6.4-8.2)
[2019-02-10 07:35] LABS: ANION GAP 19.6 mmol/L (8-16); CARBON DIOXIDE 21.3 mmol/L (21.0-32.0); CREATININE - SERUM 10.7 mg/dL (0.6-1.3); POTASSIUM - SERUM 3.9 mmol/L (3.5-5.1)
--- NOTE | 2019-02-10 07:36 | NUR ---
PT ASLEEP WHEN I WALKED IN. DID NOT WAKE I ENTERED, DID NOT FURTHER DISTURB AT THIS TIME. NO SIGNS/SYMPTOMS OF DISTRESS. BREATHS EVEN/REGUALR, CL IN REACH SRX2.
[2019-02-10 08:43] VITALS: BP 154/90
--- NOTE | 2019-02-10 11:21 | NUR ---
I have reviewed this patient and I concur with the Shift Assessment completed by the Licensed Practical Nurse today this shift.
[2019-02-10 16:08] VITALS: BP 131/86
--- NOTE | 2019-02-10 17:17 | NUR ---
PT HAS D/C ORDERS AND PAPERS, TRYING TO GET AHOLD OF SOMEONE TO COME AND GET THE PT. REACHED PTS DAUGHTER, SHE STATED SHE CAN'T COME GET HIM BUT SHE IS TRYING TO REACH THE SISTER FOR ME. STATES THEY WILL CALL BACK SOON.
--- NOTE | 2019-02-10 17:37 | NUR ---
PT DAUGHTER STILL UNABLE TO REACH SISTER. STATES SHE WILL KEEP US POSTED ON WHEN THEY'LL BE ABLE TO FIND SOMEONE TO CONVERTIBLE TOP INSTALLER THE PT.
--- NOTE | 2019-02-10 19:38 | NUR ---
SPOKEWITH HOUSE SUPERVISORAT 1910 HRS REGARDING INABILITY OF FAMILY PICKING PT UP. DAUGHTER SOES NOT HAVE AQ CAR AND STATES SHE IS TRYING TO GET AHOLD OF HIS SISTER AND SISTER'S PHONE GOES STRAIGHT TO VOICE MAIL. INITIAL ROUNDS NOTED. PT DENIES ANY DISCOMFORT.
--- NOTE | 2019-02-10 19:43 | NUR ---
INITIAL ROUNDS COMPLETED. PT DENIED ANY DISCOMFORT. AT BEDSIDE.
[2019-02-10 20:20] VITALS: BP 124/79
--- NOTE | 2019-02-10 20:53 | NUR ---
VSS. BP 124/79. ALERT AND ORIENTED TO PERSON, PLACE AND TIME. PYLE. LUNGS DIMINISHED IN BASES BILAT. LAVF WITH STRONG BRUIT AND THRILL. IV TO R WRIST DC'D WITH CATHETER INTACT. PT STATED HE HAS DC PAPERWORK THAT WAS GIVEN TO HIM BY LYRIC MCCAULEY. INSTRUCTED PT TO CONTIUE HIS REG MEDS, DIALYSIS AND TO SEE HIS RENAL MD NEEDED. TO TAXI VIA W/C.
--- NOTE | 2019-02-12 07:14 | NUR ---
LATE ENTRY 02/09/19: ROCEPHIN STOP TIME 1148 AZITHROMYCIN STOP TIME 1224
--- NOTE | 2019-02-12 09:08 | MORECARE ---
CASE MANAGEMENT DISCHARGE SUMMARY PATIENT: ODETTE OH UNIT: [id number] ADM DATE: 02/09/19 AGE: 58 : 64 SEX: M ROOM/BED: D.2131 AUTHOR: ETHAN MAHONEY PHYSICIAN: REFERRING PHYSICIAN: SHARI JONES MD DATE OF SERVICE: 02/12/19 Discharge Plan Patient Name: ODETTE OH [facility] [facility] 1960 Planned Disposition: Home Anticipated Discharge Date: 02/10/19 Discharge Date: 02/10/2019 Expected LOS: 1 Initial Reviewer: [id number] Initial Review Date: 02/12/2019 Generated: 02/12/19 10:08 am Patient Name: ODETTE OH Page [id number] at 0908 All edits/amendments must be made on the electronic document DICTATION DATE: 02/12/19907 RADIOTELEPHONE TECHNICAL OPERATOR: LUH 02/12/19907 RPT#: [id number] DC DATE:02/10/19 STATUS: DIS IN [facility] [address] [facility] [place] [address] END OF REPORT
== END 2019-02-10 20:56 | disposition home or self-care (01) | DRG 640 ==
LOC: D.ER 09:13 → D.M2 11:20
PROVIDERS: Family Medicine; ADMIT Internal Medicine Nephrology; ATTEND Internal Medicine Nephrology
PROC: 5A1D70Z Performance of Urinary Filtration, Intermittent, Less than 6 Hours Per Day (ICD-10-PCS; principal; 2019-02-10)
DX: E87.70 Fluid overload, unspecified (principal); N18.6 End stage renal disease; J18.9 Pneumonia, unspecified organism; I12.0 Hypertensive chronic kidney disease with stage 5 chronic kidney disease or end stage renal disease; E87.2 Acidosis; I16.0 Hypertensive urgency; E87.5 Hyperkalemia; D63.1 Anemia in chronic kidney disease; Z91.15 Patient's noncompliance with renal dialysis

== ENCOUNTER 2019-02-14 20:52 | Inpatient (IN) | payer MEDICAID ==
[~2019-02-14] VITALS: Ht 177.8 cm; Wt 69.0 kg
[2019-02-14 22:17] LABS: BASOPHILS 0 % (0-2); EOSINOPHILS 0.3 % (0-7); HEMOGLOBIN 9.4 g/dL (13.5-17.5); IMMATURE GRANULOCYTES 0.3 % (0-5); MCH 29.5 pg (26.0-34.0); MCHC 33.6 g/dL (31.0-37.0); MCV 87.8 fL (80.0-100.0); MEAN PLATELET VOLUME 9.2 fL (7.4-10.4); MONOCYTES 8.6 % (2-11); NEUTROPHILS 64.8 % (40-80); RBC 3.19 10x6/uL (4.20-6.10); RDW 15.5 % (11.5-14.5); WBC 7.9 10x3/uL (4.8-10.8)
[2019-02-14 22:26] LABS: INR 1.23 (0.85-1.17)
[2019-02-14 22:35] LABS: ALBUMIN 3.1 g/dL (3.4-5.0); ANION GAP 27.2 mmol/L (8-16); BILIRUBIN - TOTAL 0.47 mg/dL (0.2-1.3); CARBON DIOXIDE 15.9 mmol/L (21.0-32.0); CREATININE - SERUM 14.8 mg/dL (0.6-1.3); POTASSIUM - SERUM 5.1 mmol/L (3.5-5.1); PROTEIN - SERUM 8.3 g/dL (6.4-8.2)
[2019-02-14 22:41] LABS: CALCIUM 6.6 mg/dL (8.5-10.1)
[2019-02-14 22:44] LABS: PLATELET COUNT 128 10x3/uL (130-400)
[2019-02-14 23:30] VITALS: BP 182/106
[2019-02-14 23:45] VITALS: BP 172/96
[2019-02-14 23:59] VITALS: BP 180/96
[2019-02-15] VITALS (25 sets, daily range): BP systolic 96–182; BP diastolic 67–115; BMI 21.8
--- NOTE | 2019-02-15 00:30 | NUR ---
RECEIVED PT FROM THE ER TO ROOM 2309. PT WAS TRANSFERRED OVER TO ICU BED AND ATTACHED TO ICU MONITORS. ALL MONITORS. SEE TO BE WORKING CORRECTLY AT THIS TIME. ADMISSION ASSESSMENT, HISTORY, AND OTHER ADMISSION INFORMATION COMPLETED, SEE FLOWSHEET FOR DETAILS. PT IS VERY SHAKY, PT STATES HE GETS LIKE THAT WHEN HE GETS A LOT OF FLUID IT MAKES HIM SHAKY. UPON ARRIVAL TO UNIT PT COMPLAINED ABOUT PAIN TO HIS IV SITE, AND IT WAS NOTED TO HAVE A KNOT JUST ABOVE IV SITE. IV WAS RESITED HIGHER ON RIGHT FOREARM, GOOD BLOOD RETURN NOTED. PT ALSO COMPLAINS OF A KNOT ON THE BOTTOM OF HIS LEFT FOOT THAT MAKES IT PAINFUL TO WALK. PT'S CALL LIGHT IN REACH. BED IN LOW POSITION. NO SIGNS OF ACUTE DISTRESS NOTED AT THIS TIME. WILL CONTINUE TO MONITOR.
--- NOTE | 2019-02-15 03:00 | NUR ---
REASSESSMENT COMPLETED, SEE FLOWSHEET FOR DETAILS. PT'S IV INFILTRATED, WAS PAINFUL AND HAD A LARGE KNOT ABOVE THE IV SITE. IV REMOVED. ATTEMPTS TO RESITE IV WERE UNSUCCESSFUL BY 4 RN'S. NO NEEDS VOICED AT THIS TIME. NO SIGNS OF ACUTE DISTRESS. MONITORING VITAL SIGNS CLOSELY.
--- NOTE | 2019-02-15 05:00 | NUR ---
PT IS RESTING IN BED WITH EYES CLOSED AT THIS TIME. AM LABS DRAWN, RESULTS REVIEWED. PT DENIES NEEDS AT THIS TIME. NO SIGNS OF ACUTE DISTRESS. WILL CONTINUE TO MONITOR.
[2019-02-15 05:11] LABS: ANION GAP 28.7 mmol/L (8-16); CARBON DIOXIDE 15.7 mmol/L (21.0-32.0); MAGNESIUM - SERUM 2.8 mg/dL (1.8-2.4); POTASSIUM - SERUM 5.4 mmol/L (3.5-5.1)
[2019-02-15 05:12] LABS: HEMATOCRIT 27.3 % (42.0-54.0); HEMOGLOBIN 9.3 g/dL (13.5-17.5); MCH 29.5 pg (26.0-34.0); MCHC 34.1 g/dL (31.0-37.0); MCV 86.7 fL (80.0-100.0); MEAN PLATELET VOLUME 9.4 fL (7.4-10.4); PLATELET COUNT 124 10x3/uL (130-400); RBC 3.15 10x6/uL (4.20-6.10); RDW 15.6 % (11.5-14.5); WBC 7.9 10x3/uL (4.8-10.8)
[2019-02-15 05:20] LABS: PHOSPHOROUS 11.6 mg/dL (2.5-4.9)
[2019-02-15 06:21] LABS: LYMPHOCYTES 15 % (15-50); MONOCYTES 6 % (2-11); NEUTROPHILS 79 % (40-80); PLATELET ESTIMATE DECREASED
--- NOTE | 2019-02-15 07:30 | NUR ---
REPORT RECEIVED. PT IS WITHOUT AN IV AT THIS TIME. MULTIPLE IVS HAVE BLOWN DURING THE NIGHT. PT IS RESERVE LEFT ARM WITH A FISTULA IN THE FOREARM. PT IS ALERT AND ORIENTED. PT IS TO GET DIALYSIS TODAY. BREAKFAST GIVEN TO PT. NO OTHER NEEDS AT THIS TIME. WILL CONTINUE TO MONITOR.
--- NOTE | 2019-02-15 09:15 | NUR ---
BLOOD PRESSURE MEDICATIONS GIVEN. BP IS ELEVATED. PT IS DUE TO RECEIVE DIALYSIS TODAY. WILL CONTINUE TO MONITOR.
--- NOTE | 2019-02-15 10:11 | NUR ---
DIALYSIS IN WITH PT AT THIS TIME.
--- NOTE | 2019-02-15 12:39 | NUR ---
PT VOMITTING. ZOFRAN GIVEN. WILL CONTINUE TO MONITOR. DIALYSIS CONTINUING.
--- NOTE | 2019-02-15 14:00 | NUR ---
PT RESTING QUIETLY. 4 LITERS TAKEN OFF DURING DIALYSIS PER BOMBSIGHT SPECIALIST.
--- NOTE | 2019-02-15 16:00 | NUR ---
PT SLEEPING. VSS.
--- NOTE | 2019-02-15 17:15 | NUR ---
DINNER TRAY TAKEN TO PT. PT DENIES NAUSEA. NO NEEDS AT THIS TIME. VSS.
--- NOTE | 2019-02-15 19:00 | NUR ---
ASSUMED PT FROM DAYSHIFT RN. PT IS RESTING IN BED WITH EYES CLOSED RR EVEN AND UNLABORED. NO S/S OF DISTRESS AT THIS TIME. BED LOW CALL LIGHT WITHIN REACH. WILL CONTINUE TO MONITOR.
--- NOTE | 2019-02-15 21:00 | NUR ---
PT AWAKE, ALERT, AND ORIENTED. NO S/S OF DISTRESS AT THIS TIME. PT GIVEN POPSICLE. BED LOW CALL LIGHT WITHIN REACH WILL CONTINUE TO MONITOR.
--- NOTE | 2019-02-15 23:00 | NUR ---
PT RESTING IN BED WITH EYES CLOSED. RR EVEN AND UNLABORED. NO S/S OF DISTRESS AT THIS TIME. PT HAD 175ML OUTPUT IN URINAL DARK YELLOW. BED LOW, CALL LIGHT WITHIN REACH, SIDE RAILS UP X2. WILL CONTINUE TO MONITOR.
[2019-02-16] VITALS (14 sets, daily range): BP systolic 129–169; BP diastolic 79–96; Ht 177.8 cm; Wt 69.0 kg
--- NOTE | 2019-02-16 00:55 | NUR ---
PT RESTING IN BED WITH EYES CLOSED. RR EVEN AND UNLABORED. NO S/S OF DISTRESS AT THIS TIME. BED LOW CALL LIGHT WITHIN REACH WILL CONTINUE TO MONITOR.
--- NOTE | 2019-02-16 01:00 | NUR ---
I HAVE REVIEWED THIS PATIENT AND I AGREE WITH THE SHIFT ASSESSMENT COMPLETED BY THE LICENSED PRACTICAL NURSE THIS SHIFT.
--- NOTE | 2019-02-16 03:02 | NUR ---
PT RESTING. RR EVEN AND UNLABORED. NO S/S OF DISTRESS. BED LOW CALL LIGHT WITHIN REACH. WILL CONTINUE TO MONITOR.
--- NOTE | 2019-02-16 03:38 | NUR ---
PT SITTING UP IN BED ALERT AND ORIENTED EATING PEANUT BUTTER AND CRACKERS. NO S/S OF DISTRESS AT THIS TIME. VITALS STABLE. WILL CONTINUE TO MONITOR.
[2019-02-16 05:06] LABS: BASOPHILS 0 % (0-2); EOSINOPHILS 0.5 % (0-7); HEMATOCRIT 28.3 % (42.0-54.0); HEMOGLOBIN 9.4 g/dL (13.5-17.5); IMMATURE GRANULOCYTES 0.3 % (0-5); LYMPHOCYTES 23.7 % (15-50); MCH 29.2 pg (26.0-34.0); MCHC 33.2 g/dL (31.0-37.0); MCV 87.9 fL (80.0-100.0); MEAN PLATELET VOLUME 9.7 fL (7.4-10.4); MONOCYTES 9.8 % (2-11); NEUTROPHILS 65.7 % (40-80); PLATELET COUNT 135 10x3/uL (130-400); RBC 3.22 10x6/uL (4.20-6.10); RDW 15.7 % (11.5-14.5); WBC 7.8 10x3/uL (4.8-10.8)
[2019-02-16 05:34] LABS: CALCIUM 7.1 mg/dL (8.5-10.1); CREATININE - SERUM 11.6 mg/dL (0.6-1.3)
[2019-02-16 05:42] LABS: ANION GAP 20.6 mmol/L (8-16); CARBON DIOXIDE 24.6 mmol/L (21.0-32.0); POTASSIUM - SERUM 4.2 mmol/L (3.5-5.1)
--- NOTE | 2019-02-16 05:54 | NUR ---
PT RESTING IN BED WITH EYES CLOSED. RR EVEN AND UNLABORED. VITALS STABLE AT THIS TIME. BED LOW CALL LIGHT WITHIN REACH. WILL CONTINUE TO MONITOR.
--- NOTE | 2019-02-16 07:25 | NUR ---
REPORT RECEIVED. PT IS WITHOUT IV. CURRENTLY SLEEPING WITH VSS. PT HAS DIALYSIS YESTERDAY. HEAD TO TOE ASSESSMENT DONE. NO NEEDS AT THIS TIME. WILL CONTINUE TO MONITOR.
--- NOTE | 2019-02-16 09:50 | NUR ---
MEDICATIONS GIVEN TO PT. TAKEN WITH NO ISSUES. VSS. PT HAS TRANSFER ORDERS IN.
--- NOTE | 2019-02-16 12:58 | NUR ---
REPORT GIVEN TO OLLIE DAVIS, ON MED 2. PT TO GO TO ROOM 2136.
--- NOTE | 2019-02-16 13:18 | NUR ---
PT ARRIVED TO FLOOR VIA WHEELCHAIR. ASSISTED PT INTO BED. VSS AND WNL. PT ALERT AND ORIENTED. NO PIV NOTED. LEFT AVF WITH BRUIT AND THRILL NOTED. PT HAS A BLACK PHONE WITH HIM AND GLASS ROBOT OPERATOR. DENIES ANY NEEDS AT THIS TIME, WILL CONT TO FOLLOW POC
--- NOTE | 2019-02-16 13:35 | NUR ---
PT RETURNED FROM SYRUP SHED SUPERVISOR, VSS AND WNL. NO SIGNS OF HEMATOMA FORMATION NOTED AT THIS TIME. WILL CONT TO FOLLOW POC
--- NOTE | 2019-02-16 13:49 | NUR ---
PT RESTING IN BED, AT BEDSIDE. NO SIGNS OF HEMATOMA FORMATION NOTED AT THIS TIME, VSS AND WNL
--- NOTE | 2019-02-16 19:20 | NUR ---
PT SITTING UP IN BED ALERT AND ORIENTED X4 WATCHING TELEVISION. VITALS STABLE. RR EVEN AND UNLABORED. BED LOW CALL LIGHT WITHIN REACH. WILL CONTINUE TO MONITOR.
[2019-02-17] VITALS: BP 152/89
--- NOTE | 2019-02-17 02:15 | NUR ---
I have reviewed this patient and I concur with the Shift Assessment completed by the Licensed Practical Nurse today this shift.
[2019-02-17 04:00] VITALS: BP 134/70
[2019-02-17 05:47] LABS: BASOPHILS 0 % (0-2); EOSINOPHILS 0.5 % (0-7); HEMATOCRIT 28.2 % (42.0-54.0); HEMOGLOBIN 9.3 g/dL (13.5-17.5); IMMATURE GRANULOCYTES 0.6 % (0-5); LYMPHOCYTES 23.9 % (15-50); MCH 29.2 pg (26.0-34.0); MCV 88.7 fL (80.0-100.0); MEAN PLATELET VOLUME 9.1 fL (7.4-10.4); MONOCYTES 10.1 % (2-11); NEUTROPHILS 64.9 % (40-80); PLATELET COUNT 116 10x3/uL (130-400); RBC 3.18 10x6/uL (4.20-6.10); RDW 15.1 % (11.5-14.5); WBC 6.6 10x3/uL (4.8-10.8)
[2019-02-17 06:10] LABS: CARBON DIOXIDE 21.9 mmol/L (21.0-32.0)
[2019-02-17 06:14] LABS: ANION GAP 23.1 mmol/L (8-16); PHOSPHOROUS 9.2 mg/dL (2.5-4.9)
[2019-02-17 06:15] LABS: CALCIUM 6.6 mg/dL (8.5-10.1)
--- NOTE | 2019-02-17 07:00 | NUR ---
RECEIVED REPORT. ASSUMED CARE OF PATIENT. PATIENT RESTING IN BED WITH EYES OPEN. CALL LIGHT WITHIN REACH. NO DISTRESS. DENIES NEEDS.
[2019-02-17 09:33] VITALS: BP 146/82
--- NOTE | 2019-02-17 10:01 | NUR ---
PATIENT LEFT UNIT FOR DIALYSIS VIA BED AT 0950. NO DISTRESS UPON LEAVING UNIT.
--- NOTE | 2019-02-17 13:40 | NUR ---
PATIENT RETURNED FROM DIALYSIS AT THIS TIME VIA BED BY THIS CABINET ABRASIVE SANDBLASTER AND [place]EROCK TOWER LOADER. NO DISTRESS. TOLERATED DIALYSIS WELL.
[2019-02-17 16:10] VITALS: BP 137/79
[2019-02-17 19:10] VITALS: BP 141/79
--- NOTE | 2019-02-17 19:56 | NUR ---
PT SSITTING UP IN BED SLEEPING. RR EVEN AND UNLABORED. NO S/S OF DISTRESS. VITALS STABLE. BED LOW CALL LIGHT WITHIN REACH. WILL CONTINUE TO MONITOR.
[2019-02-18] VITALS: BP 121/71
--- NOTE | 2019-02-18 02:22 | NUR ---
PT RESTING SOUNDLY WITH EYES CLOSED. RR EVEN AND UNLABORED. NO DISTRESS. BED LOW CALL LIGHT WITHIN REACH. WILL CONTINUE TO MONITOR.
[2019-02-18 04:00] VITALS: BP 118/63
[2019-02-18 05:29] LABS: BASOPHILS 0 % (0-2); EOSINOPHILS 0.3 % (0-7); HEMATOCRIT 30.2 % (42.0-54.0); HEMOGLOBIN 10.1 g/dL (13.5-17.5); IMMATURE GRANULOCYTES 0.6 % (0-5); LYMPHOCYTES 18.7 % (15-50); MCHC 33.4 g/dL (31.0-37.0); MCV 89.6 fL (80.0-100.0); MEAN PLATELET VOLUME 9.8 fL (7.4-10.4); MONOCYTES 7.7 % (2-11); NEUTROPHILS 72.7 % (40-80); PLATELET COUNT 139 10x3/uL (130-400); RBC 3.37 10x6/uL (4.20-6.10); RDW 15.4 % (11.5-14.5); WBC 7.1 10x3/uL (4.8-10.8)
--- NOTE | 2019-02-18 05:30 | NUR ---
I have reviewed this patient and I concur with the Shift Assessment completed by the Licensed Practical Nurse today this shift.
[2019-02-18 05:38] LABS: ANION GAP 19.6 mmol/L (8-16); CALCIUM 7.2 mg/dL (8.5-10.1); CARBON DIOXIDE 25.3 mmol/L (21.0-32.0)
[2019-02-18 05:43] LABS: CREATININE - SERUM 9.4 mg/dL (0.6-1.3); POTASSIUM - SERUM 3.9 mmol/L (3.5-5.1)
--- NOTE | 2019-02-18 07:00 | NUR ---
RECEIVED REPORT. ASSUMED CARE OF PATIENT. CALL LIGHT WITHIN REACH. PATIENT RESTING ON RIGHT LATERAL SIDE WITH EYES CLOSED. RESP EVEN AND UNLABORED. NO DISTRESS.
[2019-02-18 09:13] VITALS: BP 127/62
--- NOTE | 2019-02-18 11:00 | NUR ---
RESTING IN BED. DENIES NEEDS. NO DISTRESS. PATIENT NOT VERY TALKATIVE.
[2019-02-18 12:38] VITALS: BP 126/71
--- NOTE | 2019-02-18 15:15 | NUR ---
EYES CLOSED. RESP EVEN AND UNLABORED. NO DISTRESS. CALL LIGHT WITHIN REACH.
[2019-02-18 16:47] VITALS: BP 139/65
--- NOTE | 2019-02-18 19:10 | NUR ---
PATIENT SITTING UP IN BED. NO COMPLAINTS AT THIS TIME. NO DISTRESS NOTED.
[2019-02-18 20:00] VITALS: BP 109/73
[2019-02-19] VITALS: BP 130/70
--- NOTE | 2019-02-19 02:06 | NUR ---
PATIENT LAYING IN BED. EYES CLOSED, CHEST RISING AND FALLING. NO DISTRESS NOTED.
[2019-02-19 05:25] LABS: ANION GAP 20.5 mmol/L (8-16); CALCIUM 7.5 mg/dL (8.5-10.1); CARBON DIOXIDE 23.7 mmol/L (21.0-32.0); CREATININE - SERUM 10.5 mg/dL (0.6-1.3); POTASSIUM - SERUM 4.2 mmol/L (3.5-5.1)
[2019-02-19 05:28] LABS: BASOPHILS 0.1 % (0-2); EOSINOPHILS 0.3 % (0-7); HEMATOCRIT 30.1 % (42.0-54.0); HEMOGLOBIN 9.8 g/dL (13.5-17.5); IMMATURE GRANULOCYTES 0.8 % (0-5); LYMPHOCYTES 20.6 % (15-50); MCH 29.6 pg (26.0-34.0); MCHC 32.6 g/dL (31.0-37.0); MCV 90.9 fL (80.0-100.0); MEAN PLATELET VOLUME 9.9 fL (7.4-10.4); MONOCYTES 11.8 % (2-11); NEUTROPHILS 66.4 % (40-80); PLATELET COUNT 120 10x3/uL (130-400); RBC 3.31 10x6/uL (4.20-6.10); RDW 15.2 % (11.5-14.5); WBC 7.7 10x3/uL (4.8-10.8)
--- NOTE | 2019-02-19 05:38 | NUR ---
I have reviewed this patient and I concur with the Shift Assessment completed by the Licensed Practical Nurse today this shift.
--- NOTE | 2019-02-19 06:05 | NUR ---
WHEN GIVING PATIENT REQUESTED TYLENOL FOR PAIN, PATIENT ASKED ME IF I KNEW WHAT "DEEP THROATING IS." THIS NURSE STATED I DID NOT AND WAS NOT INTERESTED IN KNOWING. PATIENT THEN STATES "YOU DO KNOW WHAT IT IS. YOU KNEW LONG BEFORE I DID. I'M NOT ASKING YOU TO DEEP THROAT ME OR ANYTHING, I JUST WANTED TO KNOW IF YOU KNOW WHAT IT IS." PATIENT THEN LAUGHED HE TOOK HIS TYLENOL. ONCE PATIENT TOOK HIS TYLENOL I TOLD HIM IF HE NEEDED ANYTHING TO PRESS HIS CALL LIGHT AND LEFT THE ROOM.
[2019-02-19 08:52] VITALS: BP 130/70
--- NOTE | 2019-02-19 16:52 | MORECARE ---
CASE MANAGEMENT DISCHARGE SUMMARY PATIENT: ODETTE OH UNIT: [id number] ADM DATE: 02/16/19 AGE: 58 : 64 SEX: M ROOM/BED: D.2136 AUTHOR: ETHAN MAHONEY PHYSICIAN: REFERRING PHYSICIAN: SHARI JONES MD DATE OF SERVICE: 02/19/19 Discharge Plan Patient Name: ODETTE OH [facility] [facility] 1960 Planned Disposition: Home Anticipated Discharge Date: Discharge Date: Expected LOS: Initial Reviewer: [email or web address] Initial Review Date: 02/19/2019 Generated: 02/19/19 5:52 pm Comments DCP- Discharge Planning Updated by [email or web address]: Jeff Christopher on 02/19/19 3:[address] Patient Name: ODETTE OH Admission Status: ER Accout number: [id number] Admission Date: 02-16-2019 : 1960 Admission Diagnosis: Attending: SHARI JONES Current LOS: 3 Anticipated DC Date: Planned Disposition: Home Primary Insurance: MEDICAID [place] Discharge Planning Comments: CM ATTEMPTED TO MEET WITH PT FOR INITIAL ASSESSMENT OF DISCHARGE NEEDS. PT WAS NOT IN ROOM AT APPROXIMATELY 1600 HOURS. CM TO ATTEMPT ASSESSMENT OF PT AT A LATER TIME. Paper Sealer: Jeff Christopher Patient Name: ODETTE OH Page 12015 at 1652 All edits/amendments must be made on the electronic document DICTATION DATE: 02/19/191651 PMO PROJECT MANAGER: LUH 02/19/191651 RPT#: [id number] DC DATE: STATUS: ADM IN [facility] [address] [id number] END OF REPORT
[2019-02-19 20:00] VITALS: BP 131/74
--- NOTE | 2019-02-19 20:13 | NUR ---
PT REST IN BED. FAMILY AT BEDSIDE. CALL LIGHT IN REACH.
--- NOTE | 2019-02-19 20:16 | NUR ---
REST IN BED. DENIES NEEDS AT THIS TIME.
[2019-02-20] VITALS: BP 141/78
--- NOTE | 2019-02-20 01:48 | NUR ---
I have reviewed this patient and I concur with the Shift Assessment completed by the Licensed Practical Nurse today this shift.
--- NOTE | 2019-02-20 01:51 | NUR ---
REST IN BED. RESP EVEN, NO S/S OF DISTRESS. CALL LIGHT IN REACH.
[2019-02-20 04:00] VITALS: BP 171/66
[2019-02-20 05:22] LABS: BASOPHILS 0 % (0-2); EOSINOPHILS 0.2 % (0-7); HEMATOCRIT 29.1 % (42.0-54.0); HEMOGLOBIN 9.5 g/dL (13.5-17.5); IMMATURE GRANULOCYTES 0.6 % (0-5); LYMPHOCYTES 17.1 % (15-50); MCHC 32.6 g/dL (31.0-37.0); MCV 91.8 fL (80.0-100.0); MEAN PLATELET VOLUME 9.5 fL (7.4-10.4); MONOCYTES 13.9 % (2-11); NEUTROPHILS 68.2 % (40-80); PLATELET COUNT 136 10x3/uL (130-400); RBC 3.17 10x6/uL (4.20-6.10); RDW 15.3 % (11.5-14.5); WBC 8.9 10x3/uL (4.8-10.8)
[2019-02-20 05:43] LABS: ANION GAP 16.5 mmol/L (8-16); CARBON DIOXIDE 26.7 mmol/L (21.0-32.0); PHOSPHOROUS 3.4 mg/dL (2.5-4.9); POTASSIUM - SERUM 4.2 mmol/L (3.5-5.1)
[2019-02-20 05:44] LABS: CREATININE - SERUM 7.8 mg/dL (0.6-1.3)
--- NOTE | 2019-02-20 07:00 | NUR ---
RECEIVED REPORT. ASSUMED CARE OF PATIENT. CALL LIGHT WITHIN REACH. RESTING IN BED WITH EYES CLOSED. RESP EVEN AND UNLABORED. NO DISTRESS.
[2019-02-20 08:55] VITALS: BP 133/80
[2019-02-20 12:35] VITALS: BP 122/74
[2019-02-20 15:11] VITALS: BP 131/68
--- NOTE | 2019-02-20 16:35 | MORECARE ---
CASE MANAGEMENT DISCHARGE SUMMARY PATIENT: ODETTE OH UNIT: [id number] ADM DATE: 02/16/19 AGE: 58 : 64 SEX: M ROOM/BED: D.2136 AUTHOR: ETHAN MAHONEY PHYSICIAN: REFERRING PHYSICIAN: SHARI JONES MD DATE OF SERVICE: 02/20/19 Discharge Plan Patient Name: [facility]ETTE OH [facility] [facility] 1960 Planned Disposition: Home Anticipated Discharge Date: Discharge Date: Expected LOS: Initial Reviewer: [email or web address] Initial Review Date: 02/19/2019 Generated: 02/20/19 5:34 pm Comments DCP- Discharge Planning Updated by [email or web address]: Jeff Christopher on 02/19/19 3:[address] Patient Name: ODETTE OH Admission Status: ER Accout number: [id number] Admission Date: 02-16-2019 : 1960 Admission Diagnosis: Attending: SHARI JONES Current LOS: 3 Anticipated DC Date: Planned Disposition: Home Primary Insurance: MEDICAID [place] Discharge Planning Comments: CM ATTEMPTED TO MEET WITH PT FOR INITIAL ASSESSMENT OF DISCHARGE NEEDS. PT WAS NOT IN ROOM AT APPROXIMATELY 1600 HOURS. CM TO ATTEMPT ASSESSMENT OF PT AT A LATER TIME. Town Manager: Jeff Christopher Last DP export: 02/19/19 3:52 pm Patient Name: ODETTE OH Page 77157 at 1635 All edits/amendments must be made on the electronic document DICTATION DATE: 02/20/19 1634 ENTOMOLOGY PROFESSOR: LUH 02/20/19 1634 RPT#: [id number] DC DATE: STATUS: ADM IN [facility] [address] [place] [address] END OF REPORT
--- NOTE | 2019-02-20 16:42 | MORECARE ---
CASE MANAGEMENT DISCHARGE SUMMARY PATIENT: ODETTE OH UNIT: [id number] ADM DATE: 02/16/19 AGE: 58 : 64 SEX: M ROOM/BED: D.2136 AUTHOR: ETHAN MAHONEY PHYSICIAN: REFERRING PHYSICIAN: SHARI JONES MD DATE OF SERVICE: 02/20/19 Discharge Plan Patient Name: ODETTE OH Facility: [facility]:[place] : 1960 Planned Disposition: Home Anticipated Discharge Date: Discharge Date: Expected LOS: Initial Reviewer: [email or web address] Initial Review Date: 02/19/2019 Generated: 02/20/19 5:41 pm Comments DCP- Discharge Planning Updated by [email or web address]: Jeff Christopher on 02/20/19 3:[address] Patient Name: ODETTE OH Encounter No: [id number] : 1960 Primary Insurance: MEDICAID [place] Anticipated DC Date: Planned Disposition: Home DCP follow-up note: CM MET WITH PT IN ROOM TO DISCUSS DISCHARGE PLANNING AND NEEDS. PT REPORTS LIVING AT HOME INDEPENDENTLY WITH HIS AUNT. PT HAS A CANE WITH NO MEDICAL EQUIPMENT PROVIDER PREFERENCE. PT HAS NO OUTSIDE SERVICES ASSISTING IN THE HOME. PT GOES TO DIALYSIS ON TUESDAY AND TUESDAY AT [facility], HE HAS NO SPECIFIC TIME TO ARRIVE. PT HAS FRIENDS THAT ASSIST WITH TRASPORTATION. CM ASKED ABOUT MEDICAID TRANSPORTATION PT HAD ONLY TO CHANGE HIS ADDRESS AT THE [facility] DEPARTMENT OF HUMAN SERVICES OFFICE TO GET TRANSPORTATION BACK; PT STATES HE AND HIS DAUGHTER ARE "WORKING ON IT." CM DISCUSSED AVAILABILITY OF HOME HEALTH, REHAB SERVICES AND MEDICAL EQUIPMENT. PT DENIES DISCHARGE NEEDS, REPORTS FAMILY OR A FRIEND WILL PICK HIM UP FOR DISCHARGE HOME. PT PLANS TO DISCHARGE HOME TO HIS AUNT'S HOME IN [place], A FRIEND OR FAMILY TO TRANSPORT HOME AT DISCHARGE. PT HAS NO ANTICIPATED DISCHARGE NEEDS AT THIS TIME. CM TO FOLLOW AND ASSIST NEEDED. SUSI OCASIO DCP- Discharge Planning Updated by [id number]: Jeff Christopher on 02/19/19 3:[address] Patient Name: ODETTE OH Admission Status: ER Accout number: [id number] Admission Date: 02-16-2019 : 1960 Admission Diagnosis: Attending: SHARI JONES Current LOS: 3 Anticipated DC Date: Planned Disposition: Home Primary Insurance: MEDICAID [place] Discharge Planning Comments: CM ATTEMPTED TO MEET WITH PT FOR INITIAL ASSESSMENT OF DISCHARGE NEEDS. PT WAS NOT IN ROOM AT APPROXIMATELY 1600 HOURS. CM TO ATTEMPT ASSESSMENT OF PT AT A LATER TIME. Gelatin Dynamite Packing Operator: Jeff Christopher DCPIA - Discharge Planning Initial Assessment Updated by [email or web address]: Jeff Christopher on 02/20/19 4:34 pm * Is the patient Alert and Oriented? Yes * How many steps to enter\\exit or inside your home? * PCP DR. FRANKLIN IN [place] * Pharmacy [facility] IN [place] * Preadmission Environment Home with Family * ADLs Independent * Equipment Cane * Other Equipment NO MEDICAL EQUIPMENT PROVIDER PREFERENCE * List name and contact numbers for known caregivers / representatives who currently or will assist patient after discharge: ROMA OH, DTR, PAUL LIANG, BROTHER, JENNIFER LIANG, SISTER, * Verbal permission to speak to the caregivers and representatives has been obtained from the patient. N/A * Community resources currently utilized Other * Please name any agencies selected above. OUTPATIENT DIALYSIS AT [facility] IN THE EMERGENCY ROOM, TUESDAY AND TUESDAY; PT REPORTS HAVING FRIENDS TO TRANSPORT, HAS NOT CHANGED ADDRESS FOR MEDICAID TRANSPORTATION. * Additional services required to return to the preadmission environment? No * Can the patient safely return to the preadmission environment? Yes * Has this patient been hospitalized within the prior 30 days at any hospital? Yes Last DP export: 02/20/19 3:34 pm Patient Name: ODETTE OH Page [id number] at 1642 All edits/amendments must be made on the electronic document DICTATION DATE: 02/20/191640 CLOUD SECURITY ARCHITECT: LUH 02/20/191640 RPT#: [id number] DC DATE: STATUS: ADM IN [facility] [address] [place] [address] END OF REPORT
--- NOTE | 2019-02-20 17:10 | NUR ---
MEDICATED FOR PAIN TO BOTTOM OF LEFT FOOT. PATIENT REPORTS THE DOCTOR DUG A SMALL PIECE OF GLASS OUT OF HIS FOOT BUT DOESN'T REMEMBER STEPPING ON ANY GLASS.
[2019-02-20 20:00] VITALS: BP 123/70
--- NOTE | 2019-02-20 20:00 | NUR ---
ROUNDS COMPLETED. VSS, AAOX3, NO S/S OF DISTRESS. RR EVEN AND UNLABORED. PT C/O OF PAIN 5/10 ON HIS RIGHT FOOT. EXPLAINED TO PT THAT HE HAS AN IV PAIN MED ORDERED BUT HE WILL NEED A PIV PUT. PT REFUSED PIV AT THIS TIME, STATES HIS PAIN IS NOT THAT BAD. PEANUTBUTTER AND CRACKERS PROVIDED PER PT REQUEST. WILL CPOC. CL WITHIN REACH, BED IN LOW, SR UP X2.
[2019-02-21] VITALS: BP 138/75
[2019-02-21 05:56] LABS: BASOPHILS 0 % (0-2); EOSINOPHILS 0.4 % (0-7); HEMATOCRIT 27.6 % (42.0-54.0); HEMOGLOBIN 8.9 g/dL (13.5-17.5); IMMATURE GRANULOCYTES 0.5 % (0-5); LYMPHOCYTES 20.1 % (15-50); MCH 29.5 pg (26.0-34.0); MCHC 32.2 g/dL (31.0-37.0); MCV 91.4 fL (80.0-100.0); MEAN PLATELET VOLUME 10.3 fL (7.4-10.4); MONOCYTES 12.1 % (2-11); NEUTROPHILS 66.9 % (40-80); PLATELET COUNT 135 10x3/uL (130-400); RBC 3.02 10x6/uL (4.20-6.10); RDW 15.5 % (11.5-14.5)
[2019-02-21 06:21] LABS: ANION GAP 17.3 mmol/L (8-16); CALCIUM 7.4 mg/dL (8.5-10.1); CREATININE - SERUM 9.5 mg/dL (0.6-1.3); POTASSIUM - SERUM 4.3 mmol/L (3.5-5.1)
[2019-02-21 06:49] VITALS: BP 142/80
--- NOTE | 2019-02-21 07:05 | NUR ---
REPORT RECEIVED. HE IS ASLEEP WITH RESP EVEN WITHOUT LABOR. CL IN REACH
[2019-02-21 09:15] VITALS: BP 174/68
--- NOTE | 2019-02-21 13:59 | NUR ---
Nutrition follow-up: Diet: Renal ADA PO intake 100% of meals Labs reviewed Wt: 152# +BM RDN following.
--- NOTE | 2019-02-21 15:00 | NUR ---
HE KOFI DIALYSIS TODAY. NO C/O VOICED CL IN REACH. RESP EVEN WITHOUT LABOR. EATING AND DRINKING WELL. REFUSES IV TO BE RESITED.
[2019-02-21 17:37] VITALS: BP 136/70
[2019-02-21 20:00] VITALS: BP 138/86
[2019-02-22] VITALS: BP 130/78
[2019-02-22 04:00] VITALS: BP 132/84
[2019-02-22 04:05] LABS: BASOPHILS 0 % (0-2); EOSINOPHILS 0.3 % (0-7); HEMATOCRIT 31.4 % (42.0-54.0); HEMOGLOBIN 10.1 g/dL (13.5-17.5); IMMATURE GRANULOCYTES 0.8 % (0-5); MCH 30.1 pg (26.0-34.0); MCHC 32.2 g/dL (31.0-37.0); MEAN PLATELET VOLUME 10.3 fL (7.4-10.4); MONOCYTES 13.3 % (2-11); NEUTROPHILS 64.6 % (40-80); PLATELET COUNT 140 10x3/uL (130-400); RBC 3.36 10x6/uL (4.20-6.10); RDW 15.8 % (11.5-14.5); WBC 7.8 10x3/uL (4.8-10.8)
[2019-02-22 04:10] LABS: MCV 93.5 fL (80.0-100.0)
[2019-02-22 04:21] LABS: ANION GAP 12.3 mmol/L (8-16); CALCIUM 7.9 mg/dL (8.5-10.1); CARBON DIOXIDE 32.8 mmol/L (21.0-32.0); POTASSIUM - SERUM 4.1 mmol/L (3.5-5.1)
[2019-02-22 04:33] LABS: CREATININE - SERUM 6.9 mg/dL (0.6-1.3)
--- NOTE | 2019-02-22 06:50 | NUR ---
REPORT RECEIVED. ALERT ABLE TO VOICE NEEDS DENIES ANY CURRENT NEEDS. LEFT ARM FISTULA WITH BRUITS HEARD AND THRILL FELT. RESP EVEN WITHOUT LABOR. CALLUS TO BOTTOM OF LEFT FOOT CLOSED. ABLE TO REPOSITION SELF. CL IN REACH
[2019-02-22 08:03] VITALS: BP 128/76
[2019-02-22] MEDS ORDERED: PEPCID PO (10:23)
[2019-02-22] MEDS ORDERED: PROTONIX40 MG PO (10:23)
[2019-02-22] MEDS ORDERED: GABAPENTIN100 MG PO (10:23)
--- NOTE | 2019-02-22 10:30 | NUR ---
RESTING WITH EASE NO DISTRESS NOTED.
[2019-02-22 12:06] VITALS: BP 132/80
--- NOTE | 2019-02-22 13:00 | NUR ---
I CALLED [facility] AND LEFT A MESSAGE THAT HE HAS DISCHARGE ORDER AND NEEDS A RIDE HOME. I CALLED THE NUMBER HE PROVIDED WHICH WAS [phone].
--- NOTE | 2019-02-22 13:30 | NUR ---
ATTEMPTED TO CALL [facility] AGAIN WITH NO ANSWER
--- NOTE | 2019-02-22 13:43 | NUR ---
C/O PAIN. TYLENOL GIVEN AT THIS TIME
--- NOTE | 2019-02-22 16:07 | MORECARE ---
CASE MANAGEMENT DISCHARGE SUMMARY PATIENT: ODETTE OH UNIT: [id number] ADM DATE: 02/16/19 AGE: 58 : 64 SEX: M ROOM/BED: D.2136 AUTHOR: MAUR,DOC PHYSICIAN: REFERRING PHYSICIAN: SHARI JONES MD DATE OF SERVICE: 02/22/19 Discharge Plan Patient Name: ODETTE OH Facility: [facility]:[place] : 1960 Planned Disposition: Home Anticipated Discharge Date: 02/22/19 Discharge Date: Expected LOS: 6 Initial Reviewer: [email or web address] Initial Review Date: 02/19/2019 Generated: 02/22/19 5:06 pm Comments DCP- Discharge Planning Updated by [id number]: Jeff Christopher on 02/22/19 2:[address] Patient Name: ODETTE OH Encounter No: [id number] : 1960 Primary Insurance: MEDICAID [place] Anticipated DC Date: Planned Disposition: Home DCP follow-up note: CM ADVISED BY BEDSIDE NURSE THAT PT HAS BEEN DISCHARGED AND SHE IS NOT ABLE TO GET PT'S DAUGHTER TO ANSWER THE PHONE OR RETURN CALL FROM PT'S FAMILY. CM MET WITH PT IN ROOM TO DISCUSS DISCHARGE TRANSPORTATION. THE LIGHTS ARE OFF AND PT WAS SLEEPING UNDER THE COVERS. CM TURNED ON THE ROOM LIGHT AND OPENED THE SHADES. CM WOKE PT UP. PT PROTESTED THAT THE LIGHTS WERE ON. CM EXPLAINED THAT PT HAS BEEN DISCHARGED AND THAT CM WAS THERE TO HELP FIND A RIDE HOME. PT REPORTS THAT HIS FAMILY WORKS AND CANNOT COME GET HIM. CM ASKED IF PT HAS CALLED TO TRY TO FIND A RIDE, PT REPORTS HIS NEW CELL PHONE DOES NOT WORK AND THAT THE CHARGING PORT WAS BROKEN. CM OFFERED TO CALL FAMILY. PT ACCEPTED ASSISTANCE AND STATES THAT NO ONE WILL BE ABLE TO PICK HIM UP. CM CALLED ROMA OH, , ANSWERING MACHINE PICKED UP, CM LEFT MESSAGE ASKING FOR URGENT RETURN CALL. CM CALLED PAUL LIANG, , CM LEFT MESSAGE ASKING FOR URGENT RETURN CALL. CM CALLED JENNIFER LIANG, , CM LEFT MESSAGE ASKING FOR URGENT RETURN CALL. WHILE WAITING FOR RETURN CALL, CM DISCUSSED THE NEED FOR PT TO DEVELOP A PERSONAL SUPPORT SYSTEM. PT REPORTS HE HAS FAMILY AND FRIENDS IN [place] THAT HELP HIM. PT WAS NOT ABLE TO IDENTIFY ANYONE OTHER THEN THOSE ALREADY CALLED THAT MAY COULD ASSIST TODAY. PT WOULD NOT PROVIDE FURTHER PHONE NUMBERS PT STATES HIS AUNT IS HOME WAITING TO RECEIVE HIM; CM ASKED TO CALL TO ENSURE SHE WAS THERE TO OPEN THE DOOR, PT INFORMED CM THAT IT WAS NOT CM'S CONCERN AND THAT SHE WAS HOME ALL OF THE TIME. CM DISCUSSED PT MOVING INTO A [facility]. PT STATES THAT HE IS NOT GOING TO A [facility] AND IS GOING HOME TO HIS AUNTS HOME. CM DISCUSSED PT CHANGING ADDRESS AT DEPARTMENT OF HUMAN SERVICES TO REINSTATE HIS MEDICAID TRANSPORT, PT STATES HE WAS TOLD BY CM LAST TIME AND HE WAS "WORKING ON IT". CM ADVISED THAT THERE IS NO WORKING ON IT, THAT ALL PT NEEDS TO DO IS PHYSICALLY GO TO THE [facility] OFFICE, TUESDAY THRU TUESDAY, 8AM TO 4:30 AM AND CHANGE HIS HOME ADDRESS TO HIS ADDRESS IN [place] AND HAVE THEM ADD THE DIRECTOR WORK TO HIS MEDICAID CASE. PT STATES HE WILL GET THIS DONE. PT DENIES HAVING MONEY TO PAY FOR TAXI TRANSPORT AND STATES HE PLANS TO [place] HOME IF NEEDED. CM OFFERED [facility] AND [facility] INFORMATION IN [place] THAT WOULD GIVE PT A PLACE TO STAY CLOSE TO HIS DIALYSIS AT [facility] AND ALLOW HIM TIME TO CONTACT HIS FAMILY OR A FRIEND TO PICK HIM UP CM WAS CONCERNED OF PT' WALKING TO [place]. PT STATES HE IS NOT GOING TO A HOMELESS SNF AND HAS A HOME TO LIVE IN. PT WAS NOT ABLE TO PROVIDE FURTHER NAMES OR PHONE NUMBERS FOR CM TO CONTACT. CM ADVISED PT THAT HE HAD A TAXI PROVIDED BY THE HOSPITAL LAST STAY AND DUE TO LIMITED RESOURCES THAT THE HOSPITAL CANNOT CONTINUE TO DO THIS FOR PT AND ENCOURAGED HIM TO THINK OF SOMEONE NOW THAT CM COULD CALL, PT STATES THERE IS NO ONE. THERE WAS NO RETURN CALL FROM FAMILY. CM CALLED AND SPOKE TO CM VETERANS' COUNSELOR [place], AUTHORIZED TAXI SERVICE FOR PT TO RETURN TO HIS HOME IN [place], COSTS OF $45.00. CM CALLED [employer], , SPOKE TO ANSON AND ARRANGED TAXI VOUCHER AND ADVISED PT AND BEDSIDE NURSE. CM ADVISED NURSE TO CALL THE TAXI WHEN PT HAS BEEN SIGNED OUT AND IS OUT FRONT WAITING ON TAXI. [employer] WILL PROVIDE TAXI SERVICE FOR PT TO GET HOME AT HOSPITAL EXPENSE OF $45.00. SUSI Ocasio DCP- Discharge Planning Updated by [id number]: Jeff Christopher on 02/20/19 3:[address] Patient Name: ODETTE OH Encounter No: [id number] : 1960 Primary Insurance: MEDICAID [place] Anticipated DC Date: Planned Disposition: Home DCP follow-up note: CM MET WITH PT IN ROOM TO DISCUSS DISCHARGE PLANNING AND NEEDS. PT REPORTS LIVING AT HOME INDEPENDENTLY WITH HIS AUNT. PT HAS A CANE WITH NO MEDICAL EQUIPMENT PROVIDER PREFERENCE. PT HAS NO OUTSIDE SERVICES ASSISTING IN THE HOME. PT GOES TO DIALYSIS ON TUESDAY AND TUESDAY AT [facility], HE HAS NO SPECIFIC TIME TO ARRIVE. PT HAS FRIENDS THAT ASSIST WITH TRASPORTATION. CM ASKED ABOUT MEDICAID TRANSPORTATION PT HAD ONLY TO CHANGE HIS ADDRESS AT THE [facility] DEPARTMENT OF HUMAN SERVICES OFFICE TO GET TRANSPORTATION BACK; PT STATES HE AND HIS DAUGHTER ARE "WORKING ON IT." CM DISCUSSED AVAILABILITY OF HOME HEALTH, REHAB SERVICES AND MEDICAL EQUIPMENT. PT DENIES DISCHARGE NEEDS, REPORTS FAMILY OR A FRIEND WILL PICK HIM UP FOR DISCHARGE HOME. PT PLANS TO DISCHARGE HOME TO HIS AUNT'S HOME IN [place], A FRIEND OR FAMILY TO TRANSPORT HOME AT DISCHARGE. PT HAS NO ANTICIPATED DISCHARGE NEEDS AT THIS TIME. CM TO FOLLOW AND ASSIST NEEDED. SUSI OCASIO DCP- Discharge Planning Updated by [id number]: Jeff Christopher on 02/19/19 3:[address] Patient Name: ODETTE OH Admission Status: ER Accout number: [id number] Admission Date: 02-16-2019 : 1960 Admission Diagnosis: Attending: SHARI JONES Current LOS: 3 Anticipated DC Date: Planned Disposition: Home Primary Insurance: MEDICAID [place] Discharge Planning Comments: CM ATTEMPTED TO MEET WITH PT FOR INITIAL ASSESSMENT OF DISCHARGE NEEDS. PT WAS NOT IN ROOM AT APPROXIMATELY 1600 HOURS. CM TO ATTEMPT ASSESSMENT OF PT AT A LATER TIME. Military Communications Specialist: Jeff Christopher DCPIA - Discharge Planning Initial Assessment Updated by [id number]: Jeff Christopher on 02/20/19 4:34 pm * Is the patient Alert and Oriented? Yes * How many steps to enter\\exit or inside your home? * PCP DR. FRANKLIN IN [place] * Pharmacy [facility] IN [place] * Preadmission Environment Home with Family * ADLs Independent * Equipment Cane * Other Equipment NO MEDICAL EQUIPMENT PROVIDER PREFERENCE * List name and contact numbers for known caregivers / representatives who currently or will assist patient after discharge: ROMA ADRIANO, DTR, PAUL LIANG, BROTHER, JENNIFER LIANG, SISTER, * Verbal permission to speak to the caregivers and representatives has been obtained from the patient. N/A * Community resources currently utilized Other * Please name any agencies selected above. OUTPATIENT DIALYSIS AT [facility] IN THE EMERGENCY ROOM, TUESDAY AND TUESDAY; PT REPORTS HAVING FRIENDS TO TRANSPORT, HAS NOT CHANGED ADDRESS FOR MEDICAID TRANSPORTATION. * Additional services required to return to the preadmission environment? No * Can the patient safely return to the preadmission environment? Yes * Has this patient been hospitalized within the prior 30 days at any hospital? Yes Last DP export: 02/20/19 3:41 pm Patient Name: ODETTE OH Page 23193 at 1607 All edits/amendments must be made on the electronic document DICTATION DATE: 02/22/19 1606 EMPLOYEE BENEFITS INSURANCE AGENT: LUH 02/22/19 160 RPT#: [id number] DC DATE: STATUS: ADM IN [facility] [address] [place] [address] END OF REPORT
--- NOTE | 2019-02-22 16:46 | NUR ---
DISCHARGE INSTRUCTIONS EXPLAINED IN DETAIL TO HIM. HE IS ALERT DENIES ANY PAIN. VSS AT THIS TIME. NO SALINE LOCK TO D/C DUE TO HIS REFUSAL TO HAVE IT RESITED. TRANSFERRED SELF TO W/C AND I TOOK HIM DOWNSTAIRS WHERE CAB CAME TO TRANSPORT HIM HOME.
== END 2019-02-22 16:50 | disposition home or self-care (01) | DRG 682 ==
LOC: D.ER 20:52 → OBSVTIME 22:37 → D.ICU 22:37 → D.M2 02-16 13:23
PROVIDERS: Family Medicine; ADMIT Internal Medicine Nephrology; ATTEND Internal Medicine Nephrology
PROC: 5A1D70Z Performance of Urinary Filtration, Intermittent, Less than 6 Hours Per Day (ICD-10-PCS; principal; 2019-02-17)
PROC: 0HBNXZZ Excision of Left Foot Skin, External Approach (ICD-10-PCS; 2019-02-20)
PROC: 0JCR3ZZ Extirpation of Matter from Left Foot Subcutaneous Tissue and Fascia, Percutaneous Approach (ICD-10-PCS; 2019-02-20)
DX: I13.11 Hypertensive heart and chronic kidney disease without heart failure, with stage 5 chronic kidney disease, or end stage renal disease (principal); N18.6 End stage renal disease; I16.0 Hypertensive urgency; Z99.2 Dependence on renal dialysis; Z91.15 Patient's noncompliance with renal dialysis; I50.9 Heart failure, unspecified; E87.5 Hyperkalemia; Z18.81 Retained glass fragments; L84 Corns and callosities; G62.9 Polyneuropathy, unspecified; D63.1 Anemia in chronic kidney disease

== ENCOUNTER 2019-03-05 10:10 | Inpatient (IN) | payer MEDICAID ==
[~2019-03-05] VITALS: Ht 177.8 cm; Wt 73.9 kg
--- NOTE | ~2019-03-05 | DS ---
PATIENT:ODETTE OH :[birth year] MEDICAL RECORD: [id number] DISCHARGE SUMMARY ADMISSION DATE: 03/06/19 DISCHARGE DATE: HISTORY OF PRESENT ILLNESS: Mr. Oh is a 58-year-old black male with end-stage renal disease, severe noncompliance with dietary and medications and has refused dialysis in multiple dialysis units including all [facility] units due to his drug seeking behavior and drug dealing behavior. He is admitted on an intermittent basis for dialysis. Current history dates to 1 week prior to admission. He was last at [facility] for dialysis, was discharged, reappeared here at [facility] for dialysis again. HOSPITAL COURSE: The patient was emergently dialyzed due to his electrolyte abnormalities. He improved, but continued to have myoclonic jerking, was treated with thiamin and IV calcium since he was severely hypocalcemic and at the time of discharge, his myoclonic jerking had resolved. He will be discharged today following his second dialysis here. ASSESSMENT: 1. End-stage renal disease. 2. Dietary and medication noncompliance. 3. Drug seeking and drug dealing behavior. 4. Hypertension. 5. Chronic hypertension. 6. Chronic anemia. PLAN: The patient will be discharged today on his current medication regime that is clonidine 0.2 b.i.d., thiamin, Nephro-Bettie 1 daily, amlodipine 5 mg b.i.d., Rocaltrol, Calcitriol 0.25 mg b.i.d., PhosLo 2 t.i.d. He will return on a p.r.n. basis since he refuses chronic dialysis in center and is a non-home dialysis candidate due to his aberrant behavior. TRANSINT:[id number] Voice Confirmation ID: [id number] DOCUMENT ID: [id number] JAYDE METZGER MD CC: [id number] DICTATION DATE: 03/07/19702 CONCRETE BUCKET HOOKER: 03/07/19 0751 ADM IN [facility] [address] [place] [address]
[~2019-03-05 10:10] MED LIST changes: +GABAPENTIN100 MG PO; +PEPCID PO
[2019-03-05 11:05] LABS: BASOPHILS 0 % (0-2); EOSINOPHILS 0.6 % (0-7); HEMATOCRIT 26.8 % (42.0-54.0); HEMOGLOBIN 9.2 g/dL (13.5-17.5); IMMATURE GRANULOCYTES 0.2 % (0-5); LYMPHOCYTES 26.2 % (15-50); MCH 30.6 pg (26.0-34.0); MCHC 34.3 g/dL (31.0-37.0); MEAN PLATELET VOLUME 9.3 fL (7.4-10.4); MONOCYTES 10.3 % (2-11); NEUTROPHILS 62.7 % (40-80); PLATELET COUNT 136 10x3/uL (130-400); RBC 3.01 10x6/uL (4.20-6.10); RDW 15.5 % (11.5-14.5); WBC 6.5 10x3/uL (4.8-10.8)
[2019-03-05 11:22] LABS: ALBUMIN 2.9 g/dL (3.4-5.0); ANION GAP 24.2 mmol/L (8-16); BILIRUBIN - TOTAL 0.46 mg/dL (0.2-1.3); CARBON DIOXIDE 19.3 mmol/L (21.0-32.0); CREATININE - SERUM 15.3 mg/dL (0.6-1.3); POTASSIUM - SERUM 5.5 mmol/L (3.5-5.1); PROTEIN - SERUM 8.3 g/dL (6.4-8.2); TROPONIN-I 0.059 ng/mL (0.000-0.060)
[2019-03-05 11:26] LABS: CALCIUM 6.6 mg/dL (8.5-10.1)
[2019-03-05 12:00] VITALS: BP 188/97
[2019-03-05 13:36] VITALS: BP 193/103; BMI 23.4
--- NOTE | 2019-03-05 13:49 | NUR ---
PATIENT ADMITTED TO ROOM 213. ALERT AND ORIENTED X 4. LUNGS DIMINISHED BILATERALLY. HEART SOUNDS S1 AND S2 HEARD IN ALL PICKARD. BOWEL SOUNDS ACTIVE X 4. SKIN INTACT WITHOUT REDNESS. STATES PAIN 7/10. BLOOD PRESSURE 193/109. SUKH LUCIO PAGED. WAITING FOR RESPONSE. IV TO RIGHT HAND PATENT WITHOUT REDNESS. O2 IN PLACE AT 2L NC. BED LOW. CALL CABEZAS AND PERSONAL ITEMS IN REACH. PATIENT UNABLE TO GIVE EMERGENCY PHONE NUMBERS, JUST NAMES. WILL CONTINUE TO MONITOR.
--- NOTE | 2019-03-05 14:22 | NUR ---
CORRECTION TO PREVIOUS NOTE. SUKH DRUMMOND PAGED ABOUT PATIENT BP. WAITING RESPONSE.
--- NOTE | 2019-03-05 14:29 | NUR ---
SPOKE WITH SUKH DRUMMOND. NEW ORDER FOR CLONIDINE 0.1MG Q4HR PRN. STATES NOT GIVING PATIENT PAIN MEDICATION. WILL GIVE CLONIDINE. WILL CONTINUE TO MONITOR.
--- NOTE | 2019-03-05 14:34 | NUR ---
PRN CLONIDINE GIVEN.
--- NOTE | 2019-03-05 14:39 | NUR ---
SPOKE WITH DIALYSIS. STATES PATIENT WILL BE DIALIZED TODAY. NOTIFIED THAT PATIENT HAS RECEIVED PRN CLONIDINE.
--- NOTE | 2019-03-05 15:34 | NUR ---
BP 194/96. DIALYSIS STATES PATIENT WILL DIALIZE TODAY.
--- NOTE | 2019-03-05 16:26 | NUR ---
PATIENT TAKEN TO DIALYSIS.
[2019-03-05 16:44] VITALS: BP 188/98
[2019-03-05 20:00] VITALS: BP 164/85
--- NOTE | 2019-03-05 20:08 | NUR ---
PATIENT BACK FROM DIALYSIS VIA BED ESCORTED BY STAFF. DIALYSIS NURSE REPORTS REMOVING 4L OFF OF PATIENT DURING DIALYSIS. PATIENT HAS NO COMPLAINTS AT THIS TIME. NO DISTRESS NOTED.
[2019-03-06] VITALS: BP 167/92
--- NOTE | 2019-03-06 02:33 | NUR ---
PATIENT SITTING UP IN BED. NO COMPLAINTS AT THIS TIME. NO DISTRESS NOTED.
[2019-03-06 04:00] VITALS: BP 160/75
--- NOTE | 2019-03-06 05:15 | NUR ---
I have reviewed this patient and I concur with the Shift Assessment completed by the Licensed Practical Nurse today this shift.
--- NOTE | 2019-03-06 07:00 | NUR ---
RECEIVED REPORT. ASSUMED CARE OF PATIENT. CALL LIGHT WITHIN REACH. PATIENT LYING IN BED WITH EYES OPEN. REQUESTED FROSTED FLAKES WITH AM MEAL TRAY. PATIENT NOTED TO HAVE SLIGHT TREMORS TO UPPER EXTREMITIES. ASKED PATIENT HOW LONG HE HAS BEEN TREMORING, SINCE YESTERDAY HE REPLIED. DENIES ANY OTHER NEEDS AT THIS TIME. DR. METZGER HERE FOR ROUNDS.
[2019-03-06 08:00] VITALS: BP 161/84
[2019-03-06 08:21] LABS: BASOPHILS 0 % (0-2); EOSINOPHILS 0.5 % (0-7); HEMATOCRIT 24.6 % (42.0-54.0); HEMOGLOBIN 8.3 g/dL (13.5-17.5); IMMATURE GRANULOCYTES 0.3 % (0-5); LYMPHOCYTES 28.8 % (15-50); MCH 29.9 pg (26.0-34.0); MCHC 33.7 g/dL (31.0-37.0); MCV 88.5 fL (80.0-100.0); MEAN PLATELET VOLUME 9.2 fL (7.4-10.4); MONOCYTES 10.2 % (2-11); NEUTROPHILS 60.2 % (40-80); PLATELET COUNT 142 10x3/uL (130-400); RBC 2.78 10x6/uL (4.20-6.10); RDW 15.2 % (11.5-14.5); WBC 5.8 10x3/uL (4.8-10.8)
[2019-03-06 08:40] LABS: ALBUMIN 2.7 g/dL (3.4-5.0); BILIRUBIN - TOTAL 0.48 mg/dL (0.2-1.3); CALCIUM 7.1 mg/dL (8.5-10.1); PHOSPHOROUS 6.5 mg/dL (2.5-4.9)
[2019-03-06 08:42] LABS: CREATININE - SERUM 10.5 mg/dL (0.6-1.3)
[2019-03-06 08:43] LABS: ANION GAP 18.4 mmol/L (8-16); CARBON DIOXIDE 25.1 mmol/L (21.0-32.0); POTASSIUM - SERUM 4.5 mmol/L (3.5-5.1)
--- NOTE | 2019-03-06 10:30 | NUR ---
PATIENT OOB AMBULATING IN ROOM. DENIES NEEDS. NO DISTRESS.
[2019-03-06 12:38] VITALS: BP 156/72
[2019-03-06 13:18] VITALS: Ht 177.8 cm; Wt 73.9 kg
--- NOTE | 2019-03-06 14:01 | NUR ---
REFUSED SCD'S PER STEPHANIE/RN
--- NOTE | 2019-03-06 15:28 | NUR ---
PATIENT RESTING IN BED WITH EYES CLOSED. CALL LIGHT WITHIN REACH. NO DISTRESS.
[2019-03-06 15:48] VITALS: BP 144/78
--- NOTE | 2019-03-06 17:30 | NUR ---
SAMANTHA GUZMANA PROVIDED UPON REQUEST. CALL LIGHT WITHIN REACH. DENIES ANY FURTHER NEEDS.
--- NOTE | 2019-03-06 19:00 | NUR ---
PATIENT LAYING IN BED. EYES CLOSED, CHEST RISING AND FALLING. NO DISTRESS NOTED.
[2019-03-06 20:00] VITALS: BP 157/85
[2019-03-06 23:38] LABS: UDS - AMPHET NEGATIVE QUAL (NEGATIVE); UDS - BARB NEGATIVE QUAL (NEGATIVE); UDS - BENZO NEGATIVE QUAL (NEGATIVE); UDS - COCAINE NEGATIVE QUAL (NEGATIVE); UDS - OPIATE NEGATIVE QUAL (NEGATIVE); UDS - PCP NEGATIVE QUAL (NEGATIVE); UDS - THC NEGATIVE QUAL (NEGATIVE)
[2019-03-07] VITALS: BP 149/80
--- NOTE | 2019-03-07 01:40 | NUR ---
I have reviewed this patient and I concur with the Shift Assessment completed by the Licensed Practical Nurse today this shift.
--- NOTE | 2019-03-07 02:01 | NUR ---
PATIENT LAYING IN BED. EYES CLOSED, CHEST RISING AND FALLING. NO DISTRESS NOTED.
[2019-03-07 04:00] VITALS: BP 159/79
--- NOTE | 2019-03-07 05:43 | NUR ---
PATIENT LAYING IN BED. NO COMPLAINTS AT THIS TIME. NO DISTRESS NOTED.
[2019-03-07 06:43] LABS: BASOPHILS 0 % (0-2); HEMATOCRIT 24.3 % (42.0-54.0); IMMATURE GRANULOCYTES 0.4 % (0-5); LYMPHOCYTES 30.3 % (15-50); MCH 29.6 pg (26.0-34.0); MCHC 32.9 g/dL (31.0-37.0); MEAN PLATELET VOLUME 9.6 fL (7.4-10.4); MONOCYTES 10.4 % (2-11); NEUTROPHILS 57.9 % (40-80); PLATELET COUNT 124 10x3/uL (130-400); RDW 15.3 % (11.5-14.5)
[2019-03-07 07:09] LABS: ANION GAP 18.4 mmol/L (8-16); CARBON DIOXIDE 23.8 mmol/L (21.0-32.0); CREATININE - SERUM 11.3 mg/dL (0.6-1.3); PHOSPHOROUS 6.8 mg/dL (2.5-4.9); POTASSIUM - SERUM 4.2 mmol/L (3.5-5.1)
--- NOTE | 2019-03-07 07:20 | NUR ---
INITIAL ROUNDING, INTRODUCTIONS MADE, WHITE BOARD UPDATED. PATIENT IS IN BED WITH LIGHTS AND TV OFF, HE DENIES PAIN, CALL LIGHT IN REACH. INSTRUCTD PATIENT ON THE ORDER TO DISCHARGE HOME TODAY AFTER DIALYSIS.
[2019-03-07 08:44] VITALS: BP 164/83
--- NOTE | 2019-03-07 12:13 | MORECARE ---
CASE MANAGEMENT DISCHARGE SUMMARY PATIENT: ODETTE OH UNIT: [id number] ADM DATE: 03/06/19 AGE: 58 : 64 SEX: M ROOM/BED: D.2136 AUTHOR: ETHAN MAHONEY PHYSICIAN: REFERRING PHYSICIAN: JUAN ANDRADE MD DATE OF SERVICE: 03/07/19 Discharge Plan Patient Name: ODETTE OH [facility] 1960 Planned Disposition: Home Anticipated Discharge Date: 03/07/19 Discharge Date: Expected LOS: 1 Initial Reviewer: [email or web address] Initial Review Date: 03/05/2019 Generated: 03/07/19 1:12 pm Patient Name: ODETTE OH Page [id number] at 1213 All edits/amendments must be made on the electronic document DICTATION DATE: 03/07/19 1212 PLATE GRAINER: LUH 03/07/19 1212 RPT#: [id number] DC DATE: STATUS: ADM IN [facility] [address] [place] [address] END OF REPORT
--- NOTE | 2019-03-07 12:20 | MORECARE ---
CASE MANAGEMENT DISCHARGE SUMMARY PATIENT: ODETTE OH UNIT: [id number] ADM DATE: 03/06/19 AGE: 58 : 64 SEX: M ROOM/BED: D.2136 AUTHOR: ETHAN MAHONEY PHYSICIAN: REFERRING PHYSICIAN: JUAN ANDRADE MD DATE OF SERVICE: 03/07/19 Discharge Plan Patient Name: ODETTE OH Facility: [facility]:[place] : 1960 Planned Disposition: Home Anticipated Discharge Date: 03/07/19 Discharge Date: Expected LOS: 1 Initial Reviewer: [email or web address] Initial Review Date: 03/05/2019 Generated: 03/07/19 1:20 pm DCPIA - Discharge Planning Initial Assessment Updated by [email or web address]: Jeff Christopher on 03/07/19 12:15 pm * Is the patient Alert and Oriented? Yes * How many steps to enter\exit or inside your home? * PCP DR. FRANKLIN IN [place] * Pharmacy [facility] IN [place] * Preadmission Environment Home with Family * ADLs Independent * Equipment Cane * Other Equipment NO MEDICAL EQUIPMENT PROVIDER PREFERENCE * List name and contact numbers for known caregivers / representatives who currently or will assist patient after discharge: ROMA OH, DTR, , PAUL LIANG, BROTHER, JENNIFER LIANG, SISTER, * Verbal permission to speak to the caregivers and representatives has been obtained from the patient. No * Community resources currently utilized Other * Please name any agencies selected above. OUTPATIENT DIALYSIS, [facility], TUESDAY AND TUESDAY; [facility]. PT HAS NOT CHANGED ADDRESS AT [facility] [employer] [facility] FOR ACCESS TO MEDICAID TRANSPORTATION SERVICES. * Additional services required to return to the preadmission environment? No * Can the patient safely return to the preadmission environment? Yes * Has this patient been hospitalized within the prior 30 days at any hospital? Yes Last DP export: 03/07/19 11:12 a Patient Name: ODETTE OH Page 04855 at 1220 All edits/amendments must be made on the electronic document DICTATION DATE: 03/07/19 1219 CRYPTOGRAPHER: DM 03/07/19 1219 RPT#: [id number] DC DATE: STATUS: ADM IN [facility] [address] [place] [address] END OF REPORT
[2019-03-07] MEDS ORDERED: PHOSLO667 MG PO (12:23)
--- NOTE | 2019-03-07 12:26 | MORECARE ---
CASE MANAGEMENT DISCHARGE SUMMARY PATIENT: ODETTE OH UNIT: [id number] ADM DATE: 03/06/19 AGE: 58 : 64 SEX: M ROOM/BED: D.0228 AUTHOR: MARU,DOC PHYSICIAN: REFERRING PHYSICIAN: JUAN ANDRADE MD DATE OF SERVICE: 03/07/19 Discharge Plan Patient Name: ODETTE OH [facility] : 1960 Planned Disposition: Home Anticipated Discharge Date: 03/07/19 Discharge Date: Expected LOS: 1 Initial Reviewer: [email or web address] Initial Review Date: 03/05/2019 Generated: 03/07/19 1:26 pm Comments DCP- Discharge Planning Updated by [email or web address]: Jeff Christopher on 03/07/19 11:[address] Patient Name: ODETTE OH Admission Status: ER Accout number: [id number] Admission Date: 03-06-2019 : 1960 Admission Diagnosis: Attending: JUAN ANDRADE Current LOS: 1 Anticipated DC Date: 03-07-2019 Planned Disposition: Home Primary Insurance: MEDICAID [place] Discharge Planning Comments: CM MET WITH PT IN ROOM TO DISCUSS DISCHARGE PLANNING AND NEEDS. PT REPORTS LIVING AT HOME INDEPENDENTLY WITH HIS AUNT IN [place]. PT HAS A CANE WITH NO MEDICAL EQUIPMENT PROVIDER PREFERENCE. PT HAS NO OUTSIDE SERVICES ASSISTING IN THE HOME. PT GOES TO DIALYSIS AT [facility] ON TUESDAY AND TUESDAY, HE HAS FRIENDS TO HELP TRANSPORT. PT REPORTS HE HAS TALKED TO [facility] ABOUT CHANGING HIS ADDRESS BUT HAS TO GO BACK IN TO TALK TO THEM AGAIN. PT UNDERSTANDS HE MUST CHANGE HIS ADDRESS WITH [facility] TO ACCESS MEDICAID TRANSPORTATION SERVICES. CM DISCUSSED AVAILABILITY OF HOME HEALTH, REHAB SERVICES AND MEDICAL EQUIPMENT. PT DENIES DISCHARGE NEEDS, REPORTS HE IS GOING TO "WORK SOMETHING OUT" TO GET HOME TODAY AFTER DISCHARGE. CM ASKED WHAT ARRANGEMENTS PT WILL BE MAKING, PT STATES NOT TO WORRY ABOUT IT, HE WILL "WORK SOMETHING OUT." CM ADVISED THAT THE HOSPITAL HAS PROVIDED [employer] [facility]SPORT THE LAST TWO DISCHARGES AND THAT THE HOSPITAL CANNOT KEEP DOING THIS FOR PT. CM BEGAN TO ATTEMPT TO EXPLORE PERSONAL SUPPORT SYSTEM. PT STATES THAT HE DID NOT ASK CM FOR HELP AND THAT HE IS TAKING CARE OF IT. CM OBSERVED PT TO HAVE A CELL PHONE WITH PAPER PATTERN INSPECTOR PLUGGED IN WITH HIM IN THE ROOM. PT REPORTS WORKING OUT TRANSPORTATION FOR HIMSELF TO GET HOME TODAY. PT DENIES DISCHARGE NEEDS. Garbage Truck Dispatcher: Jeff Christopher DCPIA - Discharge Planning Initial Assessment Updated by [email or web address]: Jeff Christopher on 03/07/19 12:15 pm * Is the patient Alert and Oriented? Yes * How many steps to enter\\exit or inside your home? * PCP DR. FRANKLIN IN [place] * Pharmacy [facility] IN [place] * Preadmission Environment Home with Family * ADLs Independent * Equipment Cane * Other Equipment NO MEDICAL EQUIPMENT PROVIDER PREFERENCE * List name and contact numbers for known caregivers / representatives who currently or will assist patient after discharge: ROMA OH, DTR, , PAUL LIANG, BROTHER, JENNIFER LIANG, SISTER, * Verbal permission to speak to the caregivers and representatives has been obtained from the patient. No * Community resources currently utilized Other * Please name any agencies selected above. OUTPATIENT DIALYSIS, [facility], TUESDAY AND TUESDAY; [facility]. PT HAS NOT CHANGED ADDRESS AT [facility] FOR ACCESS TO MEDICAID TRANSPORTATION SERVICES. * Additional services required to return to the preadmission environment? No * Can the patient safely return to the preadmission environment? Yes * Has this patient been hospitalized within the prior 30 days at any hospital? Yes Last DP export: 03/07/19 11:20 a Patient Name: ODETTE OH Page [phone] at 1226 All edits/amendments must be made on the electronic document DICTATION DATE: 03/07/19 1226 DAIRY FARMWORKER: LUH 03/07/19 1226 RPT#: [id number] DC DATE: STATUS: ADM IN [facility] [address] [place] [address] END OF REPORT
--- NOTE | 2019-03-07 13:54 | NUR ---
THE PATIENT IS BACK FROM DIALYSIS, EATING HIS LUNCH AND NOT READY TO SIGN DISCHARGE PAPERS UNTIL AFTER HE EATS.
--- NOTE | 2019-03-07 14:07 | NUR ---
REMOVED THE PATIENTS IV FROM THE RIGHT HAND, CATH TIP IN TACT. PATIENT SIGNED THE DISCHARGE PAPERS AND STATED "I GOTTA CALL A RIDE", THEN HE ASKED FOR THE REMOTE CONTROL TO THE TV
== END 2019-03-07 15:30 | disposition home or self-care (01) | DRG 291 ==
LOC: D.ER 10:10 → D.M2 11:58 → OBSVTIME 12:19 → D.M2 03-06 12:32
PROVIDERS: Family Medicine; Internal Medicine Nephrology; ADMIT Internal Medicine Nephrology; ATTEND Internal Medicine Nephrology
PROC: 5A1D70Z Performance of Urinary Filtration, Intermittent, Less than 6 Hours Per Day (ICD-10-PCS; principal; 2019-03-05)
DX: I13.2 Hypertensive heart and chronic kidney disease with heart failure and with stage 5 chronic kidney disease, or end stage renal disease (principal); N18.6 End stage renal disease; E87.5 Hyperkalemia; G25.3 Myoclonus; Z91.11 Patient's noncompliance with dietary regimen; Z91.14 Patient's other noncompliance with medication regimen; Z76.5 Malingerer [conscious simulation]; D64.9 Anemia, unspecified; E83.51 Hypocalcemia; I50.9 Heart failure, unspecified; Z91.15 Patient's noncompliance with renal dialysis; Z87.891 Personal history of nicotine dependence

== ENCOUNTER 2019-03-11 12:41 | Observation (INO) | payer MEDICAID ==
[~2019-03-11] VITALS: Ht 177.8 cm; Wt 70.8 kg
[~2019-03-11 12:41] MED LIST changes: +PHOSLO667 MG PO
[2019-03-11 13:19] LABS: INR 1.34 (0.85-1.17)
[2019-03-11 13:20] LABS: APTT 39.4 SECONDS (22.8-39.4)
[2019-03-11 13:25] LABS: BASOPHILS 0.1 % (0-2); EOSINOPHILS 0.6 % (0-7); HEMATOCRIT 26.6 % (42.0-54.0); HEMOGLOBIN 8.6 g/dL (13.5-17.5); IMMATURE GRANULOCYTES 0.3 % (0-5); MCH 30.6 pg (26.0-34.0); MCHC 32.3 g/dL (31.0-37.0); MCV 94.7 fL (80.0-100.0); MEAN PLATELET VOLUME 9.7 fL (7.4-10.4); PLATELET COUNT 143 10x3/uL (130-400); RBC 2.81 10x6/uL (4.20-6.10); RDW 15.7 % (11.5-14.5); WBC 7.3 10x3/uL (4.8-10.8)
[2019-03-11 14:09] LABS: BILIRUBIN - TOTAL 0.55 mg/dL (0.2-1.3); CARBON DIOXIDE 17.4 mmol/L (21.0-32.0); CREATININE - SERUM 13.1 mg/dL (0.6-1.3); PROTEIN - SERUM 7.9 g/dL (6.4-8.2); TROPONIN-I 0.038 ng/mL (0.000-0.060)
[2019-03-11 14:36] LABS: ANION GAP 26.9 mmol/L (8-16)
[2019-03-11 14:38] LABS: CALCIUM 6.1 mg/dL (8.5-10.1); POTASSIUM - SERUM 6.3 mmol/L (3.5-5.1)
[2019-03-11 15:11] VITALS: BP 182/94
[2019-03-11 16:05] VITALS: BP 189/95
--- NOTE | 2019-03-11 16:47 | NUR ---
ARRIVES TO ROOM VIA STRETCHER FROM ER. ALERT AND ORIENTED X4. ASSIST TO BED FROM STRETCHER. GENERALIZED WEAKNESS. GOMEZ. O2 AT 2L NC. IV INFUSING CALCIUM. REFUSE SCDs. PATIENT STATES, "THEY MAKE MY LEGS TOO HOT." CONTINUE ADMISSION PROCESS AND SAFETY PRECAUTIONS.
[2019-03-11 16:52] VITALS: BP 218/115; BMI 22.4
--- NOTE | 2019-03-11 17:39 | NUR ---
TAKEN TO DIALYSIS VIA WHEELCHAIR.
--- NOTE | 2019-03-11 19:34 | NUR ---
RECEIVED REPORT, WILL ASSUME CARE OF PT, PT IS IN DIALYSIS AT THIS TIME
--- NOTE | 2019-03-11 20:30 | NUR ---
RECEIVED PT BACK FROM DIALYSIS VIA WHEELCHAIR, WILL CONTINUE PLAN OF CARE
--- NOTE | 2019-03-11 20:45 | NUR ---
BP-191/111, SPOKE WITH HODA LUZ, WAS TOLD TO ORDER CARDURA, ISOSORBIDE MONONITRATE, LOPRESSOR, NORVASC AND 2GM OF CALCIUM GLUCONATE, NOTICED PT RECEIVED CALCIUM GLUCONATE IN ER,
[2019-03-12 00:18] VITALS: BP 161/89
[2019-03-12 04:00] VITALS: BP 130/77; BP 136/85
--- NOTE | 2019-03-12 04:38 | NUR ---
I have reviewed this patient and I concur with the Shift Assessment completed by the Licensed Practical Nurse today this shift.
[2019-03-12 04:53] LABS: BASOPHILS 0 % (0-2); EOSINOPHILS 0.6 % (0-7); HEMATOCRIT 27.4 % (42.0-54.0); HEMOGLOBIN 9.1 g/dL (13.5-17.5); IMMATURE GRANULOCYTES 0.4 % (0-5); MCH 29.9 pg (26.0-34.0); MCHC 33.2 g/dL (31.0-37.0); MEAN PLATELET VOLUME 9.8 fL (7.4-10.4); MONOCYTES 11.9 % (2-11); NEUTROPHILS 65.1 % (40-80); PLATELET COUNT 150 10x3/uL (130-400); RBC 3.04 10x6/uL (4.20-6.10); RDW 15.5 % (11.5-14.5)
[2019-03-12 05:02] LABS: MCV 90.1 fL (80.0-100.0); WBC 5.1 10x3/uL (4.8-10.8)
[2019-03-12 05:11] LABS: CALCIUM 7.3 mg/dL (8.5-10.1); PHOSPHOROUS 5.9 mg/dL (2.5-4.9)
[2019-03-12 05:22] LABS: CARBON DIOXIDE 25.1 mmol/L (21.0-32.0); CREATININE - SERUM 8.9 mg/dL (0.6-1.3); POTASSIUM - SERUM 4.1 mmol/L (3.5-5.1)
--- NOTE | 2019-03-12 07:49 | NUR ---
REPORT RECEIVED. WILL CONTINUE WITH POC. PT CURRENTLY LYING ON RIGHT SIDE RESTING. CALL LIGHT W/I REACH. RR EVEN AND UNLABORED ON 4L OXYMIZER. R.HAND PIV IS SALINE LOCKED. NO S/S OF DISTRESS NOTED. PT DENIES ANY NEEDS. WILL CTM.
[2019-03-12 08:03] VITALS: BP 160/83
[2019-03-12 11:41] VITALS: BP 146/80
[2019-03-12 12:19] VITALS: Ht 177.8 cm; Wt 70.8 kg
--- NOTE | 2019-03-12 15:27 | MORECARE ---
CASE MANAGEMENT DISCHARGE SUMMARY PATIENT: ODETTE OH UNIT: [id number] ADM DATE: 03/11/19 AGE: 58 : 64 SEX: M ROOM/BED: D.2106 AUTHOR: ETHAN MAHONEY PHYSICIAN: REFERRING PHYSICIAN: JUAN ANDRADE MD DATE OF SERVICE: 03/12/19 Discharge Plan Patient Name: ODETTE OH [facility] [facility] 1960 Planned Disposition: Home Anticipated Discharge Date: 03/13/19 Discharge Date: Expected LOS: 2 Initial Reviewer: [email or web address] Initial Review Date: 03/12/2019 Generated: 03/12/19 4:27 pm Patient Name: ODETTE OH Page 75799 at 1527 All edits/amendments must be made on the electronic document DICTATION DATE: 03/12/19 1527 DRY PRIMER POWDER BLENDER: LUH 03/12/19 1527 RPT#: [id number] DC DATE: STATUS: ADM IN [facility] [address] [place] [address] END OF REPORT
--- NOTE | 2019-03-12 15:36 | MORECARE ---
CASE MANAGEMENT DISCHARGE SUMMARY PATIENT: ODETTE OH UNIT: [id number] ADM DATE: 03/11/19 AGE: 58 : 64 SEX: M ROOM/BED: D.2106 AUTHOR: ETHAN MAHONEY PHYSICIAN: REFERRING PHYSICIAN: JUAN ANDRADE MD DATE OF SERVICE: 03/12/19 Discharge Plan Patient Name: ODETTE OH [facility] [facility] 1960 Planned Disposition: Home Anticipated Discharge Date: 03/13/19 Discharge Date: Expected LOS: 2 Initial Reviewer: [email or web address] Initial Review Date: 03/12/2019 Generated: 03/12/19 4:36 pm DCPIA - Discharge Planning Initial Assessment Updated by [email or web address]: Jeff Christopher on 03/12/19 3:28 pm * Is the patient Alert and Oriented? Yes * How many steps to enter\exit or inside your home? NONE * PCP DR. FRANKLIN IN [place] * Pharmacy [facility] IN [place] * Preadmission Environment Home with Family * ADLs Independent * Equipment Cane * Other Equipment NO MEDICAL EQUIPMENT PROVIDER PREFERENCE Last DP export: 03/12/19 2:27 p Patient Name: ODETTE OH Page 60196 at 1536 All edits/amendments must be made on the electronic document DICTATION DATE: 03/12/19 1536 SOCIAL WORK ASSOCIATE: LUH 03/12/19 1536 RPT#: [id number] DC DATE: STATUS: ADM IN [address] [address] END OF REPORT
--- NOTE | 2019-03-12 15:50 | NUR ---
I have reviewed this patient and I concur with the Shift Assessment completed by the Licensed Practical Nurse today this shift.
--- NOTE | 2019-03-12 16:43 | MORECARE ---
CASE MANAGEMENT DISCHARGE SUMMARY PATIENT: ODETTE OH UNIT: [id number] ADM DATE: 03/11/19 AGE: 58 : 64 SEX: M ROOM/BED: D.2106 AUTHOR: ETHAN MAHONEY PHYSICIAN: REFERRING PHYSICIAN: JUAN ANDRADE MD DATE OF SERVICE: 03/12/19 Discharge Plan Patient Name: ODETTE OH Facility: [facility]:[place] : 1960 Planned Disposition: Home Anticipated Discharge Date: 03/13/19 Discharge Date: Expected LOS: 2 Initial Reviewer: [email or web address] Initial Review Date: 03/12/2019 Generated: 03/12/19 5:43 pm DCPIA - Discharge Planning Initial Assessment Updated by [email or web address]: Jeff Christopher on 03/12/19 4:42 pm * Is the patient Alert and Oriented? Yes * How many steps to enter\\exit or inside your home? NONE * PCP DR. FRANKLIN IN [place] * Pharmacy [facility] IN [place] * Preadmission Environment Home with Family * ADLs Independent * Equipment Cane * Other Equipment NO MEDICAL EQUIPMENT PROVIDER PREFERENCE * List name and contact numbers for known caregivers / representatives who currently or will assist patient after discharge: ROMA OH, DTR, PAUL LIANG, BROTHER, JENNIFER LIANG, SISTER, * Verbal permission to speak to the caregivers and representatives has been obtained from the patient. N/A * Community resources currently utilized Other * Please name any agencies selected above. OUTPATIENT DISLYSIS, [facility], TUESDAY AND TUESDAY, PT CONTINUES TO REPORT "[facility]" TRANSPORT. PT HAS NOT CHANGED HIS ADDRESS WITH MEDICAID TRANSPORTATION. * Additional services required to return to the preadmission environment? No * Can the patient safely return to the preadmission environment? Yes * Has this patient been hospitalized within the prior 30 days at any hospital? Yes Last DP export: 03/12/19 2:36 p Patient Name: ODETTE OH Page 83926 at 1643 All edits/amendments must be made on the electronic document DICTATION DATE: 071642 CONSTRUCTION DRIVER: DM 03/12/191642 RPT#: [id number] DC DATE: STATUS: ADM IN [facility] [address] [place] [address] END OF REPORT
--- NOTE | 2019-03-12 16:52 | MORECARE ---
CASE MANAGEMENT DISCHARGE SUMMARY PATIENT: ODETTE OH UNIT: [id number] ADM DATE: 03/11/19 AGE: 58 : 64 SEX: M ROOM/BED: D.2106 AUTHOR: MARU,DOC PHYSICIAN: REFERRING PHYSICIAN: JUAN ANDRADE MD DATE OF SERVICE: 03/12/19 Discharge Plan Patient Name: ODETTE OH Facility: [facility]:[place] : 1960 Planned Disposition: Home Anticipated Discharge Date: 03/13/19 Discharge Date: Expected LOS: 2 Initial Reviewer: [email or web address] Initial Review Date: 03/12/2019 Generated: 03/12/19 5:52 pm DCP- Discharge Planning Updated by [email or web address]: Jeff Christopher on 03/12/19 3:[address] Patient Name: ODETTE OH Admission Status: ER Accout number: [id number] Admission Date: 03-11-2019 : 1960 Admission Diagnosis: Attending: JUAN ANDRADE Current LOS: 1 Anticipated DC Date: 03-13-2019 Planned Disposition: Home Primary Insurance: MEDICAID [place] Discharge Planning Comments: CM RECEIVED ORDER FOR DISCHARGE PLANNING. CM MET WITH PT IN ROOM TO DISCUSS DISCHARGE PLANNING AND NEEDS. PT REPORTS LIVING AT HOME INDEPENDENTLY WITH HIS AUNT IN [place]. PT HAS A CANE WITH NO MEDICAL EQUIPMENT PROVIDER PREFERENCE. PT HAS NO OUTSIDE SERVICES ASSISTING IN THE HOME. PT HAS DIALYSIS AT [facility], REPORTS NOT YET CHANGING HIS ADDRESS AT DEPARTMENT OF HUMAN SERVICES; PT HAS FRIENDS HE REPORTS TRANSPORT HIM OR WHOEVER HE CAN FIND TO PAY FOR A RIDE. CM DISCUSSED AVAILABILITY OF HOME HEALTH, REHAB SERVICES AND MEDICAL EQUIPMENT. PT DENIES DISCHARGE NEEDS, REPORTS HE WILL "CALL SOMEONE" WHO WILL PICK HIM UP FOR DISCHARGE HOME. Tow Truck Operator: Jeff Christopher DCPIA - Discharge Planning Initial Assessment Updated by [id number]: Jeff Christopher on 03/12/19 4:42 pm * Is the patient Alert and Oriented? Yes * How many steps to enter\\exit or inside your home? NONE * PCP DR. FRANKLIN IN [place] * Pharmacy [facility] IN [place] * Preadmission Environment Home with Family * ADLs Independent * Equipment Cane * Other Equipment NO MEDICAL EQUIPMENT PROVIDER PREFERENCE * List name and contact numbers for known caregivers / representatives who currently or will assist patient after discharge: ROMA OH, DTR, PAUL LIANG, BROTHER, JENNIFER LIANG, SISTER, * Verbal permission to speak to the caregivers and representatives has been obtained from the patient. N/A * Community resources currently utilized Other * Please name any agencies selected above. OUTPATIENT DISLYSIS, [facility], TUESDAY AND TUESDAY, PT CONTINUES TO REPORT "[facility]DS" TRANSPORT. PT HAS NOT CHANGED HIS ADDRESS WITH MEDICAID TRANSPORTATION. * Additional services required to return to the preadmission environment? No * Can the patient safely return to the preadmission environment? Yes * Has this patient been hospitalized within the prior 30 days at any hospital? Yes Last DP export: 03/12/19 3:43 p Patient Name: ODETTE OH Page [id number] at 1652 All edits/amendments must be made on the electronic document DICTATION DATE: 03/12/191651 PATIENT ASSESSMENT COORDINATOR: LUH 03/12/191651 RPT#: [id number] DC DATE: STATUS: ADM IN [facility] [address] [place] [address] END OF REPORT
--- NOTE | 2019-03-12 18:07 | NUR ---
ANA FROM DIALYSIS CALLED FOR PT. PT REFUSED TO GO BY CHAIR STATING "IM NOT SITTING UP FOR 3.5 HOURS." PER POLICY, PT IS NOT ABLE TO TRANSFER BY BED THEREFORE PT WILL NOT RECEIVED DIALYSIS TRX THIS PM R/T NON COMPLIANCE WITH NEW PROTOCOL. WILL CTM.
--- NOTE | 2019-03-12 19:30 | NUR ---
REPORT RECEIVED, WILL CPOC. PATIENT A&OX4, SITTING UP IN BED. NO S/SX OF DISTRESS NOTED, RR EVEN AND UNLABORED. PATIENT DENIES NEEDS AT THIS TIME. CL IN REACH, BED LOCKED AND LOWERED, WILL CTM.
[2019-03-12 20:00] VITALS: BP 141/71
[2019-03-13] VITALS: BP 126/65
--- NOTE | 2019-03-13 00:46 | NUR ---
I have reviewed this patient and I concur with the Shift Assessment completed by the Licensed Practical Nurse today this shift.
[2019-03-13 04:00] VITALS: BP 146/74
[2019-03-13 05:14] LABS: BASOPHILS 0 % (0-2); EOSINOPHILS 0.8 % (0-7); HEMATOCRIT 25.4 % (42.0-54.0); HEMOGLOBIN 8.3 g/dL (13.5-17.5); IMMATURE GRANULOCYTES 0.4 % (0-5); LYMPHOCYTES 25.1 % (15-50); MCH 29.5 pg (26.0-34.0); MCHC 32.7 g/dL (31.0-37.0); MCV 90.4 fL (80.0-100.0); MEAN PLATELET VOLUME 9.4 fL (7.4-10.4); MONOCYTES 11.7 % (2-11); PLATELET COUNT 142 10x3/uL (130-400); RBC 2.81 10x6/uL (4.20-6.10); RDW 15.3 % (11.5-14.5); WBC 4.9 10x3/uL (4.8-10.8)
[2019-03-13 05:34] LABS: CARBON DIOXIDE 26.2 mmol/L (21.0-32.0); CREATININE - SERUM 10.5 mg/dL (0.6-1.3)
[2019-03-13 06:23] LABS: ANION GAP 19.8 mmol/L (8-16); PHOSPHOROUS 8.8 mg/dL (2.5-4.9)
[2019-03-13 06:25] LABS: CALCIUM 6.5 mg/dL (8.5-10.1)
--- NOTE | 2019-03-13 06:27 | NUR ---
RECEIVED CALL FROM LAB, PATIENT HAS CRITICAL CALCIUM LEVEL OF 6.5, CHARGE NURSE NOTIFIED.
--- NOTE | 2019-03-13 08:21 | NUR ---
I CALLED [facility] TO SEE IF MEDS FOR DISCHARGE WERE CALLED IN. I SPOKE WITH JONAS-PHARMACIST AND HE TELLS ME THE MEDICATION WAS CALLED IN BUT NEVER PICKED UP.
--- NOTE | 2019-03-13 10:45 | MORECARE ---
CASE MANAGEMENT DISCHARGE SUMMARY PATIENT: ODETTE OH UNIT: [id number] ADM DATE: 03/11/19 AGE: 58 : 64 SEX: M ROOM/BED: D.2106 AUTHOR: MARU,DOC PHYSICIAN: REFERRING PHYSICIAN: JUAN ANDRADE MD DATE OF SERVICE: 03/13/19 Discharge Plan Patient Name: ODETTE OH Facility: [facility]:[place] : 1960 Planned Disposition: Home Anticipated Discharge Date: 03/13/19 Discharge Date: 03/13/2019 Expected LOS: 2 Initial Reviewer: [email or web address] Initial Review Date: 03/12/2019 Generated: 03/13/19 11:45 am DCP- Discharge Planning Updated by [email or web address]: Jeff Christopher on 03/12/19 3:[address] Patient Name: ODETTE OH Admission Status: ER Accout number: [id number] Admission Date: 03-11-2019 : 1960 Admission Diagnosis: Attending: JUAN ANDRADE Current LOS: 1 Anticipated DC Date: 03-13-2019 Planned Disposition: Home Primary Insurance: MEDICAID [place] Discharge Planning Comments: CM RECEIVED ORDER FOR DISCHARGE PLANNING. CM MET WITH PT IN ROOM TO DISCUSS DISCHARGE PLANNING AND NEEDS. PT REPORTS LIVING AT HOME INDEPENDENTLY WITH HIS AUNT IN [place]. PT HAS A CANE WITH NO MEDICAL EQUIPMENT PROVIDER PREFERENCE. PT HAS NO OUTSIDE SERVICES ASSISTING IN THE HOME. PT HAS DIALYSIS AT [facility], REPORTS NOT YET CHANGING HIS ADDRESS AT DEPARTMENT OF HUMAN SERVICES; PT HAS FRIENDS HE REPORTS TRANSPORT HIM OR WHOEVER HE CAN FIND TO PAY FOR A RIDE. CM DISCUSSED AVAILABILITY OF HOME HEALTH, REHAB SERVICES AND MEDICAL EQUIPMENT. PT DENIES DISCHARGE NEEDS, REPORTS HE WILL "CALL SOMEONE" WHO WILL PICK HIM UP FOR DISCHARGE HOME. Reception Clerk: Jeff Christopher DCPIA - Discharge Planning Initial Assessment Updated by [email or web address]: Jeff Christopher on 03/12/19 4:42 pm * Is the patient Alert and Oriented? Yes * How many steps to enter\\exit or inside your home? NONE * PCP DR. FRANKLIN IN [place] * Pharmacy [facility] IN [place] * Preadmission Environment Home with Family * ADLs Independent * Equipment Cane * Other Equipment NO MEDICAL EQUIPMENT PROVIDER PREFERENCE * List name and contact numbers for known caregivers / representatives who currently or will assist patient after discharge: ROMA OH, DTR, PAUL LIANG, BROTHER, JENNIFER LIANG, SISTER, * Verbal permission to speak to the caregivers and representatives has been obtained from the patient. N/A * Community resources currently utilized Other * Please name any agencies selected above. OUTPATIENT DISLYSIS, [facility], TUESDAY AND TUESDAY, PT CONTINUES TO REPORT "FRIENDS" TRANSPORT. PT HAS NOT CHANGED HIS ADDRESS WITH MEDICAID TRANSPORTATION. * Additional services required to return to the preadmission environment? No * Can the patient safely return to the preadmission environment? Yes * Has this patient been hospitalized within the prior 30 days at any hospital? Yes Last DP export: 03/12/19 3:52 p Patient Name: ODETTE OH Page [id number] at 1045 All edits/amendments must be made on the electronic document DICTATION DATE: 03/13/19 1044 SUPERVISOR TOY ASSEMBLY: LUH 03/13/19 1044 RPT#: [id number] DC DATE:03/13/19 STATUS: DIS IN [facility] [address] [place] [address] END OF REPORT
--- NOTE | 2019-03-13 10:51 | MORECARE ---
CASE MANAGEMENT DISCHARGE SUMMARY PATIENT: ODETTE OH UNIT: [id number] ADM DATE: 03/11/19 AGE: 58 : 64 SEX: M ROOM/BED: D.2106 AUTHOR: MARU,DOC PHYSICIAN: REFERRING PHYSICIAN: JUAN ANDRADE MD DATE OF SERVICE: 03/13/19 Discharge Plan Patient Name: ODETTE OH Facility: [facility]:[place] : 1960 Planned Disposition: Home Anticipated Discharge Date: 03/13/19 Discharge Date: 03/13/2019 Expected LOS: 2 Initial Reviewer: [id number] Initial Review Date: 03/12/2019 Generated: 03/13/19 11:51 am Comments DCP- Discharge Planning Updated by [id number]: Jeff Christopher on 03/13/19 9:[address] Patient Name: ODETTE OH Encounter No: [id number] : 1960 Primary Insurance: MEDICAID [place] Anticipated DC Date: 03-13-2019 Planned Disposition: Home DCP follow-up note: LENO SPOKE TO BEDSIDE NURSE WHO INFORMED CM THAT PT CANNOT LOCATE A RIDE HOME. CM SPOKE TO PT IN ROOM WHO REPORTS HE IS CALLING FAMILY, BUT NO ONE WILL ANSWER PHONE. CM ADVISED PT THAT WHEN PT WAS HERE LAST WEEK, CM CALLED ALL THREE EMERGENCY CONTACTS, HIS DAUGHTER, BROTHER AND SISTER, AND THAT NOT ONLY DID THEY NOT ANSWER THE PHONE, BUT NEVER RETURNED ANY MESSAGES LEFT BY CM. PT STATES HE WILL BE OK AND WILL FIND A RIDE, HE DOES NOT KNOW WHEN HE WILL BE ABLE TO LEAVE. LENO CALLED AND SPOKE TO CM DOCUMENT MANAGEMENT CONSULTANT OTTO, DISCUSSED PT NOT BEING ABLE TO FIND A RIDE AND THAT PT HAS NOT CHANGED HIS ADDRESS WITH MEDICAID IN [place] TO ALLOW PT TO UTILIZE MEDICAID TRANSPORTATION. CM DOCUMENT MANAGEMENT CONSULTANT OTTO REVIEWED AND FOUND THAT PT HAS HAD TWO PREVIOUS TAXI TRANSPORTS PROVIDED AT HOSPITAL EXPENSE, AUTHORIZED THE LAST ONE FOR TODAY TO THE [facility] DEPARTMENT OF HUMAN SERVICES OFFICE TO ALLOW PT TO CHANGE HIS ADDRESS FOR MEDICAID TRANSPORTATION SERVICES ACCESS. LENO NOTIFIED PT IN ROOM WHO INITIALLY DECLINED TRANSPORT TO THE [facility]. PT STATES HE DOES NOT WANT TO GO THERE AND WILL HAVE TO FIND A RIDE HOME FROM THERE. LENO EXPLAINED THAT UNLESS PT CHANGES HIS ADDRESS AT DEPARTMENT OF HUMAN SERVICES, HE WILL CONTINUE WITHOUT TRANSPORTATION TO HIS DIALYSIS APPOINTMENTS AT [facility] IN [place]. CM EXPLAINED TO PT THAT HE COULD ACCEPT THIS OR LEAVE NOW. PT ACCEPTED RIDE TO [facility] AT [address] [place] [address]. [phone]. CM CALLED [place] TAXI, , REQUESTED TAXI ON VOUCHER, $45. PT AND BEDSIDE NURSE NOTIFIED. Jeff Christopher, CASE MANAGEMENT DCP- Discharge Planning Updated by [id number]: Jeff Christopher on 03/12/19 3:[address] Patient Name: ODETTE OH Admission Status: ER Accout number: [id number] Admission Date: 03-11-2019 : 1960 Admission Diagnosis: Attending: JUAN ANDRADE Current LOS: 1 Anticipated DC Date: 03-13-2019 Planned Disposition: Home Primary Insurance: MEDICAID [place] Discharge Planning Comments: CM RECEIVED ORDER FOR DISCHARGE PLANNING. CM MET WITH PT IN ROOM TO DISCUSS DISCHARGE PLANNING AND NEEDS. PT REPORTS LIVING AT HOME INDEPENDENTLY WITH HIS AUNT IN [place]. PT HAS A CANE WITH NO MEDICAL EQUIPMENT PROVIDER PREFERENCE. PT HAS NO OUTSIDE SERVICES ASSISTING IN THE HOME. PT HAS DIALYSIS AT [facility], REPORTS NOT YET CHANGING HIS ADDRESS AT [facility] OF HUMAN SERVICES; PT HAS FRIENDS HE REPORTS TRANSPORT HIM OR WHOEVER HE CAN FIND TO PAY FOR A RIDE. CM DISCUSSED AVAILABILITY OF HOME HEALTH, REHAB SERVICES AND MEDICAL EQUIPMENT. PT DENIES DISCHARGE NEEDS, REPORTS HE WILL "CALL SOMEONE" WHO WILL PICK HIM UP FOR DISCHARGE HOME. Legal Recovery Specialist: Jeff Christopher DCPIA - Discharge Planning Initial Assessment Updated by [id number]: Jeff Christopher on 03/12/19 4:42 pm * Is the patient Alert and Oriented? Yes * How many steps to enter\\exit or inside your home? NONE * PCP DR. FRANKLIN IN [place] * Pharmacy [facility] IN [place] * Preadmission Environment Home with Family * ADLs Independent * Equipment Cane * Other Equipment NO MEDICAL EQUIPMENT PROVIDER PREFERENCE * List name and contact numbers for known caregivers / representatives who currently or will assist patient after discharge: ROMA OH, DTR, PAUL LIANG, BROTHER, JENNIFER LIANG, SISTER, * Verbal permission to speak to the caregivers and representatives has been obtained from the patient. N/A * Community resources currently utilized Other * Please name any agencies selected above. OUTPATIENT DISLYSIS, [facility] ER, TUESDAY AND TUESDAY, PT CONTINUES TO REPORT "FRIENDS" TRANSPORT. PT HAS NOT CHANGED HIS ADDRESS WITH MEDICAID TRANSPORTATION. * Additional services required to return to the preadmission environment? No * Can the patient safely return to the preadmission environment? Yes * Has this patient been hospitalized within the prior 30 days at any hospital? Yes Last DP export: 03/13/19 9:45 a Patient Name: ODETTE OH Page [id number] at 1051 All edits/amendments must be made on the electronic document DICTATION DATE: 03/13/19 1051 BAG MAKING MACHINE TENDER: LUH 03/13/19 1051 RPT#: [id number] DC DATE:03/13/19 STATUS: DIS IN [facility] [address] [place] [address] END OF REPORT
--- NOTE | 2019-03-16 06:01 | DS ---
PATIENT:ODETTE OH :[birth year] MEDICAL RECORD: [id number] DISCHARGE SUMMARY ADMISSION DATE: 03/11/19 DISCHARGE DATE: 03/13/19 HISTORY OF PRESENT ILLNESS: Mr. Oh is a 58-year-old black male with end-stage renal disease, chronic drug abuse, chronic drug dealing who returns on a p.r.n. basis for his dialysis. He has been declined admission to all regional and local dialysis units due to his aberrant drug seeking and drug dealing behavior. He reappeared again on the day of admission with shortness of breath and verified chest x-ray. He underwent emergent dialysis was restarted on his home medications. He was also hyperkalemic and followup potassium was stable at the time of discharge, he was back to baseline with no other major intercurrent problems. DISCHARGE DIAGNOSES: 1. Acute hyperkalemia requiring emergent dialysis. 2. End-stage renal disease. 3. Drug seeking and drug dealing behavior. 4. Chronic anemia. 5. Poor medication compliance. 6. Severe accelerated hypertension. PLAN: The patient will be discharged today. Return p.r.n. for dialysis as per his usual. He will continue his current medications and diet and we will continue to see him on a p.r.n. basis. DISCHARGE MEDICATIONS: Will be Nephro-Bettie 1 daily, vitamin D 10,000 p.o. q.12, isosorbide 60 mg daily, PhosLo 2 t.i.d., metoprolol 50 b.i.d., amlodipine 5 b.i.d., and doxazosin 2 mg b.i.d. TRANSINT:[id number] Voice Confirmation ID: [id number] DOCUMENT ID: [id number] JAYDE METZGER MD at 0601 CC: [id number] DICTATION DATE: 03/13/19 0634 REGISTERED VASCULAR TECHNOLOGIST (RVT): 03/13/19 0746 DIS IN 03/13/19 [id number] [place] [address]
== END 2019-03-13 10:15 | disposition home or self-care (01) ==
LOC: D.ER 12:41 → OBSVTIME 15:30 → D.M2 15:30
PROVIDERS: Family Medicine; Internal Medicine Nephrology; ADMIT Internal Medicine Nephrology; ATTEND Internal Medicine Nephrology
DX: E87.5 Hyperkalemia (principal); I10 Essential (primary) hypertension; I12.0 Hypertensive chronic kidney disease with stage 5 chronic kidney disease or end stage renal disease; N18.6 End stage renal disease; Z99.2 Dependence on renal dialysis; R10.9 Unspecified abdominal pain; Z91.19 Patient's noncompliance with other medical treatment and regimen; I31.3 Pericardial effusion (noninflammatory)

== ENCOUNTER 2019-03-20 15:30 | Observation (INO) | payer MEDICAID ==
[~2019-03-20] VITALS: Ht 177.8 cm; Wt 73.9 kg
--- NOTE | ~2019-03-20 | DS ---
PATIENT:ODETTE OH :[birth year] MEDICAL RECORD: [id number] DISCHARGE SUMMARY ADMISSION DATE: 03/20/19 DISCHARGE DATE: HISTORY OF PRESENT ILLNESS: Mr. Oh is a 58-year-old black male with end-stage renal disease, chronic drug use and distribution, who has no permanent dialysis unit due to his drug seeking and drug dealing behaviors as well as total noncompliance with meds, diet, and dialysis schedule. He returns to the ED on a p.r.n. basis for dialysis, returned again for dialysis and found to be hyperkalemic and was admitted for the above. HOSPITAL COURSE: The patient underwent acute dialysis times 2 on resumption of his meds. His blood pressures, etc., improved. He has not been taking his phosphate binders. He has been hypocalcemic, was dialyzed times 1 on high calcium bath. His phosphate binders and vitamin D were resumed orally. Urine drug screen was positive for cocaine as expected. At the time of discharge, he was basically returned to baseline with no other major intercurrent abnormalities. DISCHARGE DIAGNOSES: 1. Hyperkalemia. 2. End-stage renal disease, chronic dialysis. 3. Drug seeking and drug distributing behavior. 4. Hypertension. 5. Chronic anemia. PLAN: The patient will be discharged today. He is to resume his current med schedule and his renal diet. DISCHARGE MEDICATIONS: Will be calcitriol 0.25 b.i.d., folic acid 1 daily, Pepcid 10 b.i.d., metoprolol 50 b.i.d., isosorbide 60 mg daily, Cardura 2 mg b.i.d., amlodipine 5 mg b.i.d., PhosLo 2 t.i.d. He will continue Renvela on an as needed basis for his hyperphosphatemia. He was not given any pain meds during hospitalization nor will he be given any at discharge. TRANSINT:[id number] Voice Confirmation ID: [id number] DOCUMENT ID: [id number] JAYDE METZGER MD CC: [id number] DICTATION DATE: 03/22/19711 CHIEF ADMINISTRATIVE OFFICER: 03/22/19740 ADM IN [address] [id number] [place] [address]
[2019-03-20 16:27] LABS: BASOPHILS 0 % (0-2); EOSINOPHILS 0.3 % (0-7); HEMATOCRIT 26.2 % (42.0-54.0); HEMOGLOBIN 8.9 g/dL (13.5-17.5); IMMATURE GRANULOCYTES 0.3 % (0-5); MCH 30.3 pg (26.0-34.0); MCV 89.1 fL (80.0-100.0); MEAN PLATELET VOLUME 9.5 fL (7.4-10.4); MONOCYTES 9.9 % (2-11); NEUTROPHILS 63.5 % (40-80); PLATELET COUNT 122 10x3/uL (130-400); RBC 2.94 10x6/uL (4.20-6.10); RDW 15.9 % (11.5-14.5); WBC 5.9 10x3/uL (4.8-10.8)
[2019-03-20 17:47] VITALS: BP 201/105
[2019-03-20 17:54] VITALS: BP 190/106
[2019-03-20 18:09] LABS: ALBUMIN 3.1 g/dL (3.4-5.0); ANION GAP 31.5 mmol/L (8-16); BILIRUBIN - TOTAL 0.62 mg/dL (0.2-1.3); CARBON DIOXIDE 13.3 mmol/L (21.0-32.0); CREATININE - SERUM 16.9 mg/dL (0.6-1.3); POTASSIUM - SERUM 5.8 mmol/L (3.5-5.1); PROTEIN - SERUM 8.4 g/dL (6.4-8.2)
[2019-03-20 18:18] LABS: CALCIUM 5.9 mg/dL (8.5-10.1); TROPONIN-I 0.069 ng/mL (0.000-0.060)
[2019-03-20 19:24] VITALS: BP 193/103
--- NOTE | 2019-03-20 19:29 | NUR ---
URINE TO LAB
[2019-03-20 19:33] LABS: APPEARANCE CLEAR (CLEAR); BILIRUBIN NEGATIVE (NEGATIVE); COLOR YELLOW (YELLOW); GLUCOSE NEGATIVE (NEGATIVE); KETONE NEGATIVE (NEGATIVE); NITRITE NEGATIVE (NEGATIVE); PROTEIN 1+ mg/dL (NEGATIVE); UROBILINOGEN NORMAL (NORMAL)
[2019-03-20 19:34] LABS: BACTERIA MODERATE /hpf (NONE SEEN); WHITE CELLS - URINE 0-5 /hpf (0-5)
[2019-03-20 21:28] VITALS: BP 160/93
--- NOTE | 2019-03-20 22:52 | NUR ---
RECIEVED PATIENT FROM ER. QUICK START AND ADMISSION HISTORY COMPLETE. WHEN ASKING PATIENT ABOUT MEDICAL HISTORY PATIENT WOULD NOT ANSWER ON MOST QUESTIONS. QUESTIONS THAT PATIENT WOULD NOT ANSWER WERE ANSWERED BY OLD RECORDS. PATIENT EDUCATED ON NPO OTHER THEN SPRITE STATUS. PATIENT ORIENTED TO UNIT.
[2019-03-21] VITALS: BP 172/91
[2019-03-21 03:11] VITALS: BP 172/91; BMI 23.4
[2019-03-21 06:49] VITALS: BP 180/92
[2019-03-21 07:02] LABS: CARBON DIOXIDE 10.5 mmol/L (21.0-32.0)
[2019-03-21 07:05] LABS: ANION GAP 34.4 mmol/L (8-16); POTASSIUM - SERUM 4.9 mmol/L (3.5-5.1)
[2019-03-21 07:10] LABS: CALCIUM 5.8 mg/dL (8.5-10.1)
[2019-03-21 07:57] LABS: HEMATOCRIT 22.8 % (42.0-54.0); HEMOGLOBIN 8.3 g/dL (13.5-17.5); MCH 33.5 pg (26.0-34.0); MCHC 36.4 g/dL (31.0-37.0); MCV 91.9 fL (80.0-100.0); MEAN PLATELET VOLUME 9.6 fL (7.4-10.4); PLATELET COUNT 110 10x3/uL (130-400); RBC 2.48 10x6/uL (4.20-6.10); WBC 5.6 10x3/uL (4.8-10.8)
[2019-03-21 08:32] VITALS: BP 193/106
[2019-03-21 09:15] LABS: UDS - AMPHET NEGATIVE QUAL (NEGATIVE); UDS - BARB NEGATIVE QUAL (NEGATIVE); UDS - BENZO NEGATIVE QUAL (NEGATIVE); UDS - COCAINE POSITIVE QUAL (NEGATIVE); UDS - OPIATE NEGATIVE QUAL (NEGATIVE); UDS - PCP NEGATIVE QUAL (NEGATIVE); UDS - THC NEGATIVE QUAL (NEGATIVE)
[2019-03-21 09:36] LABS: EOSINOPHILS 1 % (0-7); LYMPHOCYTES 29 % (15-50); MONOCYTES 13 % (2-11); NEUTROPHILS 57 % (40-80); PLATELET ESTIMATE DECREASED
[2019-03-21 09:37] LABS: HYPOCHROMASIA OCC; ROULEAUX OCC
[2019-03-21 13:34] VITALS: Ht 177.8 cm; Wt 73.9 kg
[2019-03-21 16:14] VITALS: BP 192/95
--- NOTE | 2019-03-21 16:56 | NUR ---
I have reviewed this patient and I concur with the Shift Assessment completed by the Licensed Practical Nurse today this shift.
--- NOTE | 2019-03-21 17:49 | NUR ---
PT CURRENTLY LYING SEMI FOWLERS. CALL LIGHT W/I REACH. PT RETURN TO FLOOR FROM DIALYSIS. PT IS AAO AND UP AD LANDRY. RR EVEN AND UNLABORED ON 2L 02. R.FOR PIV IS SALINE LOCKED. PT DENIES ANY NEEDS AT THIS TIME. WILL CTM. NO S/S OF DISTRESS NOTED.
--- NOTE | 2019-03-21 19:20 | NUR ---
PT IS AAO, UP AD LANDRY. PT HAS NO S/S OF DISTRESS. BED LOW AND CALL LIGHT IN REACH. NAME AND DATE PLACED ON BOARD. PT ASKED FOR SNACK AND PT RECEIVED. WILL CPOC
[2019-03-21 20:00] VITALS: BP 158/89
--- NOTE | 2019-03-21 20:29 | NUR ---
ALERTED BY TOOLMAKER HELPER THAT PT HAD A 17 BEAT RUN OF VTACH. PT IS ASYMPTOMATIC. DENIES ANY NEEDS. NO S/S OF DISTRESS. WILL CPOC
--- NOTE | 2019-03-21 21:47 | NUR ---
NIGHT MEDICATIONS GIVEN. PT VERBALIZED UNDERSTANDING IN MEDICATIONS. PT IS AAO, S1S2, LUNGS CLEAR WITH FINE CRACKLES LOWER LOBES. LEFT AVF BRUIT AND THRILL NOTED. RIGHT FOREARM PIV. PT HAS CALL LIGHT IN REACH. NO S/S OF DISTRESS. WILL CPOC
[2019-03-22] VITALS: BP 173/76
--- NOTE | 2019-03-22 00:23 | NUR ---
PT LAYING IN BED WITH EYES CLOSED. NO S/S OF DISTRESS. BED LOW AND CALL LIGHT IN REACH. WILL CPOC
[2019-03-22 04:00] VITALS: BP 155/77
[2019-03-22 05:25] LABS: BASOPHILS 0 % (0-2); EOSINOPHILS 0.5 % (0-7); HEMOGLOBIN 7.8 g/dL (13.5-17.5); IMMATURE GRANULOCYTES 0.5 % (0-5); LYMPHOCYTES 23.1 % (15-50); MCH 29.8 pg (26.0-34.0); MCHC 33.9 g/dL (31.0-37.0); MEAN PLATELET VOLUME 9.2 fL (7.4-10.4); MONOCYTES 10.4 % (2-11); NEUTROPHILS 65.5 % (40-80); PLATELET COUNT 101 10x3/uL (130-400); RBC 2.62 10x6/uL (4.20-6.10); RDW 15.8 % (11.5-14.5); WBC 4.2 10x3/uL (4.8-10.8)
[2019-03-22 05:28] LABS: MCV 87.8 fL (80.0-100.0)
[2019-03-22 05:56] LABS: CHOL - HDL RATIO 4.9 ratio (2.3-4.9); LDL-HDL RATIO 2.9 ratio (1.5-3.5); PHOSPHOROUS 8.3 mg/dL (2.5-4.9)
[2019-03-22 06:17] LABS: ANION GAP 22.7 mmol/L (8-16); CARBON DIOXIDE 21.1 mmol/L (21.0-32.0); CREATININE - SERUM 12.2 mg/dL (0.6-1.3); POTASSIUM - SERUM 3.8 mmol/L (3.5-5.1)
[2019-03-22 06:18] LABS: CALCIUM 6.1 mg/dL (8.5-10.1)
[2019-03-22] MEDS ORDERED: ROCALTROL0.25 MCG PO (08:04)
--- NOTE | 2019-03-22 08:06 | NUR ---
PER DR METZGER NOTES, I CALLED CALCITROL 0.25 MG BID # 60 TO [facility]. SPOKE WITH NII-PHARMACIST.
[2019-03-22 08:21] VITALS: BP 164/86
--- NOTE | 2019-03-22 09:23 | MORECARE ---
CASE MANAGEMENT DISCHARGE SUMMARY PATIENT: ODETTE OH UNIT: [id number] ADM DATE: 03/20/19 AGE: 58 : 64 SEX: M ROOM/BED: D.2133 AUTHOR: ETHAN MAHONEY PHYSICIAN: REFERRING PHYSICIAN: LEONA CHAND MD DATE OF SERVICE: 03/22/19 Discharge Plan Patient Name: ODETTE OH [facility] [facility] 1960 Planned Disposition: Home Anticipated Discharge Date: 03/22/19 Discharge Date: Expected LOS: 2 Initial Reviewer: [email or web address] Initial Review Date: 03/22/2019 Generated: 03/22/19 10:23 am DCPIA - Discharge Planning Initial Assessment Updated by [id number]: Jeff Christopher on 03/22/19 9:19 am * Is the patient Alert and Oriented? Yes * How many steps to enter\exit or inside your home? NONE * PCP DR. FRANKLIN IN [place] * Pharmacy [facility] IN [place] * Preadmission Environment Home with Family * ADLs Independent * Equipment Cane * Other Equipment NO MEDICAL EQUIPMENT PROVIDER PREFERENCE * List name and contact numbers for known caregivers / representatives who currently or will assist patient after discharge: ROMA OH, DTR, PAUL LIANG, BROTHER, JENNIFER LIANG, SISTER, * Verbal permission to speak to the caregivers and representatives has been obtained from the patient. N/A * Community resources currently utilized Other * Please name any agencies selected above. EMERGENCY DIALYSIS - [facility], TUESDAY AND TUESDAY, PT NOW REPORTS HAVING NO FRIENDS TO TRANSPORT, HAS NOT CHANGED HIS ADDRESS WITH DEPARTMENT OF [employer] SERVICES FOR MEDICAID TRANSPORTATION SERVICES. * Additional services required to return to the preadmission environment? No * Can the patient safely return to the preadmission environment? Yes * Has this patient been hospitalized within the prior 30 days at any hospital? Yes Patient Name: ODETTE OH Page [id number] at 0923 All edits/amendments must be made on the electronic document DICTATION DATE: 03/22/19922 FORM MAKER PLASTER: LUH 03/22/19922 RPT#: [id number] DC DATE: STATUS: ADM IN [facility] [address] [place] [address] END OF REPORT
--- NOTE | 2019-03-22 09:30 | MORECARE ---
CASE MANAGEMENT DISCHARGE SUMMARY PATIENT: ODETTE OH UNIT: [id number] ADM DATE: 03/20/19 AGE: 58 : 64 SEX: M ROOM/BED: D.4780 AUTHOR: MARUDOC PHYSICIAN: REFERRING PHYSICIAN: LEONA ALCANTAR MD DATE OF SERVICE: 03/22/19 Discharge Plan Patient Name: ODETTE OH [facility] [facility] 1960 Planned Disposition: Home Anticipated Discharge Date: 03/22/19 Discharge Date: Expected LOS: 2 Initial Reviewer: [email or web address] Initial Review Date: 03/22/2019 Generated: 03/22/19 10:30 am Comments DCP- Discharge Planning Updated by [email or web address]: Jeff Christopher on 03/22/19 8:[address] Patient Name: ODETTE OH Admission Status: ER Accout number: [id number] Admission Date: 03-20-2019 : 1960 Admission Diagnosis: Attending: Leona Alcantar Current LOS: 2 Anticipated DC Date: 03-22-2019 Planned Disposition: Home Primary Insurance: MEDICAID [place] Discharge Planning Comments: CM MET WITH PT IN ROOM TO DISCUSS TRANSPORTATION HOME PT HAS BEEN DISCHARGED THIS MORNING. PT HAS TWO CELL PHONES ON BEDSIDE TABLE. PT REPORTS THEY ARE NOT WORKING RIGHT. PT REPORTS ABILITY TO CALL OUT AND CAN HEAR THE PERSON HE CALLED, BUT THEY CANNOT HEAR HIM. CM OFFERED TO ALLOW PT TO USE CM'S PHONE TO CALL LONG DISTANCE TO GET A RIDE HOME, PT STATES "MAYBE AFTER DIALYSIS". PT STILL REPORTS LIVING WITH AUNT IN [place]. PT STILL USES A CANE. PT HAS NO MEDICAL EQUIPMENT PROVIDER. PT IS SUPPOSED TO BE GOING TO [facility] EM[facility] ROOM FOR DIALYSIS BUT NOW REPORTS HE IS HAVING TROUBLE FINDING FRIENDS TO BRING HIM FOR DILAYSIS. PT CONTINUES TO REFUSE [facility] PLACEMENT UNLESS IT IS IN [place]; THERE IS NO [facility] IN [place] THAT WILL ACCEPT PT AND NO OUTPATIENT DIALYSIS UNIT IN THIS AREA THAT WILL ACCEPT PT FOR OUTPATIENT DIALYSIS DUE TO NON COMPLIANCE WITH MEDICAL TREATMENT AND CONTINUED DRUG ABUSE. PT REPORTS HE WILL BE GOING HOME WITH HIS AUNT, NO WHERE ELSE. 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 CM ADVISED PT THAT THE HOSPITAL WILL NOT PROVIDE FURTHER TAXI SERVICES FOR PT TO GET HOME. PT STATES HE WILL "CALL AROUND FOR A RIDE." CM TO FOLLOW AND ASSIST IF NEEDED. Securities Trader: Jeff Christopher DCPIA - Discharge Planning Initial Assessment Updated by [id number]: Jeff Christopher on 03/22/19 9:19 am * Is the patient Alert and Oriented? Yes * How many steps to enter\\exit or inside your home? NONE * PCP DR. FRANKLIN IN [place] * Pharmacy [facility] IN [place] * Preadmission Environment Home with Family * ADLs Independent * Equipment Cane * Other Equipment NO MEDICAL EQUIPMENT PROVIDER PREFERENCE * List name and contact numbers for known caregivers / representatives who currently or will assist patient after discharge: ROMA ADRIANO, DTR, PAUL LIANG, BROTHER, JENNIFER LIANG, SISTER, * Verbal permission to speak to the caregivers and representatives has been obtained from the patient. N/A * Community resources currently utilized Other * Please name any agencies selected above. EMERGENCY DIALYSIS - [facility], TUESDAY AND TUESDAY, PT NOW REPORTS HAVING NO FRIENDS TO TRANSPORT, HAS NOT CHANGED HIS ADDRESS WITH DEPARTMENT OF HUMAN SERVICES FOR MEDICAID TRANSPORTATION SERVICES. * Additional services required to return to the preadmission environment? No * Can the patient safely return to the preadmission environment? Yes * Has this patient been hospitalized within the prior 30 days at any hospital? Yes Last DP export: 03/22/19 8:23 am Patient Name: ODETTE OH Page [id number] at 0930 All edits/amendments must be made on the electronic document DICTATION DATE: 03/22/19929 VARNISH REMOVER: LUH 03/22/19929 RPT#: [id number] DC DATE: STATUS: ADM IN [facility] [address] [place] [address] END OF REPORT
--- NOTE | 2019-03-22 16:21 | MORECARE ---
CASE MANAGEMENT DISCHARGE SUMMARY PATIENT: ODETTE OH UNIT: [id number] ADM DATE: 03/20/19 AGE: 58 : 64 SEX: M ROOM/BED: D.2133 AUTHOR: MARU,DOC PHYSICIAN: REFERRING PHYSICIAN: LEONA ALCANTAR MD DATE OF SERVICE: 03/22/19 Discharge Plan Patient Name: ODETTE OH Facility: [facility]:[place] : 1960 Planned Disposition: Home Anticipated Discharge Date: 03/22/19 Discharge Date: Expected LOS: 2 Initial Reviewer: [email or web address] Initial Review Date: 03/22/2019 Generated: 03/22/19 5:20 pm Comments DCP- Discharge Planning Updated by [email or web address]: Jeff Christopher on 03/22/19 3:[address] Patient Name: ODETTE OH Encounter No: [id number] : 1960 Primary Insurance: MEDICAID [place] Anticipated DC Date: 03-22-2019 Planned Disposition: Home DCP follow-up note: [facility]ENO SPOKE TO PT'S NURSE WHO INFORMED CM THAT PT IS BACK FROM DIALYSIS AND DOES NOT HAVE A RIDE HOME, SHE HAS OFFERED TO LET PT USE HER PHONE BUT HE REFUSED STATING HE IS EATING. CM MET WITH PT IN ROOM AND OFFERED TO CALL HIS FAMILY. PT REFUSED AND STATES HE WILL CALL WELL LOGGING MUD ANALYSIS CAPTAIN WHEN HE IS READY TO CALL AND IS BUSY EATING. CM ENCOURAGED PT TO LET CM ASSIST, PT REFUSED. CM LATER RECEIVED REQUEST FROM BEDSIDE NURSE TO SEE PT. CM MET WITH PT AND ASSISTED PT WITH CALLING HIS SISTER, PEYTON, . CM LEFT DETAILED MESSAGE ASKING FOR RETURN CALL. CM DID NOT RECEIVE RETURN CALL. CM OFFERED TO CALL PT'S OTHER FAMILY, PT REFUSED AND REPORTS THEY WILL NOT HELP HIM. CM OFFERED PLACEMENT PT BEGAN TO GET UPSET AND RAISE HIS VOICE STATING HE IS GOING HOME. CM OFFERED [facility] INFORMATION FOR [place] IN CASE PT IS NOT ABLE TO GET A RIDE HOME. PT VERY UPSET WITH CM, STATES HE IS NOT GOING TO A [facility]. CM ADVISED PT HE CANNOT STAY IN THE HOSPITAL, PT STATES HE UNDERSTANDS WHAT DISCHARGE MEANS AND CAN SIT ON THE BENCH IN FRONT OF THE HOSPITAL BUT DOES NOT NEED ANY [facility]OM[facility]ESS [facility] AND IS NOT WALKING ANYWHERE!! LENO NOTIFIED BEDSIDE NURSE. Jeff Christopher. CASE MANAGEMENT DCP- Discharge Planning Updated by [id number]: Jeff Christopher on 03/22/19 8:[address] Patient Name: ODETTE OH Admission Status: ER Accout number: [id number] Admission Date: 03-20-2019 : 1960 Admission Diagnosis: Attending: Leona Alcantar Current LOS: 2 Anticipated DC Date: 03-22-2019 Planned Disposition: Home Primary Insurance: MEDICAID [place] Discharge Planning Comments: CM MET WITH PT IN ROOM TO DISCUSS TRANSPORTATION HOME PT HAS BEEN DISCHARGED THIS MORNING. PT HAS TWO CELL PHONES ON BEDSIDE TABLE. PT REPORTS THEY ARE NOT WORKING RIGHT. PT REPORTS ABILITY TO CALL OUT AND CAN HEAR THE PERSON HE CALLED, BUT THEY CANNOT HEAR HIM. CM OFFERED TO ALLOW PT TO USE CM'S PHONE TO CALL LONG DISTANCE TO GET A RIDE HOME, PT STATES "MAYBE AFTER DIALYSIS". PT STILL REPORTS LIVING WITH AUNT IN [place]. PT STILL USES A CANE. PT HAS NO MEDICAL EQUIPMENT PROVIDER. PT IS SUPPOSED TO BE GOING TO [facility] EMERGENCY ROOM FOR DIALYSIS BUT NOW REPORTS HE IS HAVING TROUBLE FINDING FRIENDS TO BRING HIM FOR DILAYSIS. PT CONTINUES TO REFUSE [facility] PLAC[facility] UNLESS IT IS IN [place]; THERE IS NO [facility] IN [place] THAT WILL ACCEPT PT AND NO OUTPATIENT DIALYSIS UNIT IN THIS AREA THAT WILL ACCEPT PT FOR OUTPATIENT DIALYSIS DUE TO NON COMPLIANCE WITH MEDICAL TREATMENT AND CONTINUED DRUG ABUSE. PT REPORTS HE WILL BE GOING HOME WITH HIS AUNT, NO WHERE ELSE. 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 CM ADVISED PT THAT THE HOSPITAL WILL NOT PROVIDE FURTHER TAXI SERVICES FOR PT TO GET HOME. PT STATES HE WILL "CALL AROUND FOR A RIDE." CM TO FOLLOW AND ASSIST IF NEEDED. Piercing Artist: Jeff Christopher DCPIA - Discharge Planning Initial Assessment Updated by [email or web address]: Jeff Christopher on 03/22/19 9:19 am * Is the patient Alert and Oriented? Yes * How many steps to enter\\exit or inside your home? NONE * PCP DR. FRANKLIN IN [place] * Pharmacy [facility] IN [place] * Preadmission Environment Home with Family * ADLs Independent * Equipment Cane * Other Equipment NO MEDICAL EQUIPMENT PROVIDER PREFERENCE * List name and contact numbers for known caregivers / representatives who currently or will assist patient after discharge: ROMA ADRIANO, DTR, PAUL LIANG, BROTHER, JENNIFER LIANG, SISTER, * Verbal permission to speak to the caregivers and representatives has been obtained from the patient. N/A * Community resources currently utilized Other * Please name any agencies selected above. EMERGENCY DIALYSIS - [facility], TUESDAY AND TUESDAY, PT NOW REPORTS HAVING NO FRIENDS TO TRANSPORT, HAS NOT CHANGED HIS ADDRESS WITH [facility] [employer] SERVICES FOR MEDICAID TRANSPORTATION SERVICES. * Additional services required to return to the preadmission environment? No * Can the patient safely return to the preadmission environment? Yes * Has this patient been hospitalized within the prior 30 days at any hospital? Yes Last DP export: 03/22/19 8:30 am Patient Name: ODETTE OH Page [id number] at 1621 All edits/amendments must be made on the electronic document DICTATION DATE: 03/22/19 162 NURSING INFORMATICS SPECIALIST: LUH 03/22/191619 RPT#: [id number] DC DATE: STATUS: ADM IN [facility] [address] [place] [address] END OF REPORT
--- NOTE | 2019-03-22 16:57 | MORECARE ---
CASE MANAGEMENT DISCHARGE SUMMARY PATIENT: ODETTE OH UNIT: [id number] ADM DATE: 03/20/19 AGE: 58 : 64 SEX: M ROOM/BED: D.2133 AUTHOR: MARU,DOC PHYSICIAN: REFERRING PHYSICIAN: LEONA ALCANTAR MD DATE OF SERVICE: 03/22/19 Discharge Plan Patient Name: ODETTE OH Facility: [facility]:[place] : 1960 Planned Disposition: Home Anticipated Discharge Date: 03/22/19 Discharge Date: Expected LOS: 2 Initial Reviewer: [email or web address] Initial Review Date: 03/22/2019 Generated: 03/22/19 5:57 pm Comments DCP- Discharge Planning Updated by [id number]: Jeff Christopher on 03/22/19 3:[address] Patient Name: ODETTE OH Encounter No: [id number] : 1960 Primary Insurance: MEDICAID [place] Anticipated DC Date: 03-22-2019 Planned Disposition: Home DCP follow-up note: LENO SPOKE TO PT'S NURSE WHO INFORMED CM THAT PT IS BACK FROM DIALYSIS AND DOES NOT HAVE A RIDE HOME, SHE HAS OFFERED TO LET PT USE HER PHONE BUT HE REFUSED STATING HE IS EATING. CM MET WITH PT IN ROOM AND OFFERED TO CALL HIS FAMILY. PT REFUSED AND STATES HE WILL CALL DOG CATCHER WHEN HE IS READY TO CALL AND IS BUSY EATING. CM ENCOURAGED PT TO LET CM ASSIST, PT REFUSED. CM LATER RECEIVED REQUEST FROM BEDSIDE NURSE TO SEE PT. CM MET WITH PT AND ASSISTED PT WITH CALLING HIS SISTER, PEYTON, . CM LEFT DETAILED MESSAGE ASKING FOR RETURN CALL. CM DID NOT RECEIVE RETURN CALL. CM OFFERED TO CALL PT'S OTHER FAMILY, PT REFUSED AND REPORTS THEY WILL NOT HELP HIM. CM OFFERED PLACEMENT PT BEGAN TO GET UPSET AND RAISE HIS VOICE STATING HE IS GOING HOME. CM OFFERED [facility] INFORMATION FOR [place] IN CASE PT IS NOT ABLE TO GET A RIDE HOME. PT VERY UPSET WITH CM, STATES HE IS NOT GOING TO A FPC. CM ADVISED PT HE CANNOT STAY IN THE HOSPITAL, PT STATES HE UNDERSTANDS WHAT DISCHARGE MEANS AND CAN SIT ON THE BENCH IN FRONT OF THE HOSPITAL BUT DOES NOT NEED ANY HOMELESS FPC AND IS NOT WALKING ANYWHERE!! LENO NOTIFIED BEDSIDE NURSE. Jeff Christopher. CASE MANAGEMENT DCP- Discharge Planning Updated by [id number]: Jeff Christopher on 03/22/19 8:[address] Patient Name: ODETTE OH Admission Status: ER Accout number: [id number] Admission Date: 03-20-2019 : 1960 Admission Diagnosis: Attending: Leona Alcantar Current LOS: 2 Anticipated DC Date: 03-22-2019 Planned Disposition: Home Primary Insurance: MEDICAID [place] Discharge Planning Comments: CM MET WITH PT IN ROOM TO DISCUSS TRANSPORTATION HOME PT HAS BEEN DISCHARGED THIS MORNING. PT HAS TWO CELL PHONES ON BEDSIDE TABLE. PT REPORTS THEY ARE NOT WORKING RIGHT. PT REPORTS ABILITY TO CALL OUT AND CAN HEAR THE PERSON HE CALLED, BUT THEY CANNOT HEAR HIM. CM OFFERED TO ALLOW PT TO USE CM'S PHONE TO CALL LONG DISTANCE TO GET A RIDE HOME, PT STATES "MAYBE AFTER DIALYSIS". PT STILL REPORTS LIVING WITH AUNT IN [place]. PT STILL USES A CANE. PT HAS NO MEDICAL EQUIPMENT PROVIDER. PT IS SUPPOSED TO BE GOING TO [facility] EM[facility] ROOM FOR DIALYSIS BUT NOW REPORTS HE IS HAVING TROUBLE FINDING FRIENDS TO BRING HIM FOR DILAYSIS. PT CONTINUES TO REFUSE SKILLED NURSING PLACEMENT UNLESS IT IS IN [place]; THERE IS NO SKILLED NURSING IN [place] THAT WILL ACCEPT PT AND NO OUTPATIENT DIALYSIS UNIT IN THIS AREA THAT WILL ACCEPT PT FOR OUTPATIENT DIALYSIS DUE TO NON COMPLIANCE WITH MEDICAL TREATMENT AND CONTINUED DRUG ABUSE. PT REPORTS HE WILL BE GOING HOME WITH HIS AUNT, NO WHERE ELSE. 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 CM ADVISED PT THAT THE HOSPITAL WILL NOT PROVIDE FURTHER TAXI SERVICES FOR PT TO GET HOME. PT STATES HE WILL "CALL AROUND FOR A RIDE." CM TO FOLLOW AND ASSIST IF NEEDED. Electric Refrigerator Preparer: Jeff Christopher DCPIA - Discharge Planning Initial Assessment Updated by [id number]: Jeff Christopher on 03/22/19 9:19 am * Is the patient Alert and Oriented? Yes * How many steps to enter\\exit or inside your home? NONE * PCP DR. FRANKLIN IN [place] * Pharmacy [facility] IN [place] * Preadmission Environment Home with Family * ADLs Independent * Equipment Cane * Other Equipment NO MEDICAL EQUIPMENT PROVIDER PREFERENCE * List name and contact numbers for known caregivers / representatives who currently or will assist patient after discharge: ROMA ADRIANO, DTR, PAUL LIANG, BROTHER, JENNIFER LIANG, SISTER, * Verbal permission to speak to the caregivers and representatives has been obtained from the patient. N/A * Community resources currently utilized Other * Please name any agencies selected above. EMERGENCY DIALYSIS - [facility] EMERGENCY ROOM, TUESDAY AND TUESDAY, PT NOW REPORTS HAVING NO FRIENDS TO TRANSPORT, HAS NOT CHANGED HIS ADDRESS WITH [facility] [employer] FOR MEDICAID TRANSPORTATION SERVICES. * Additional services required to return to the preadmission environment? No * Can the patient safely return to the preadmission environment? Yes * Has this patient been hospitalized within the prior 30 days at any hospital? Yes Last DP export: 03/22/19 3:21 pm Patient Name: ODETTE HO Page [id number] at 1657 All edits/amendments must be made on the electronic document DICTATION DATE: 03/22/191656 DIESEL SERVICE TECHNICIAN: LUH 03/22/191656 RPT#: [id number] DC DATE: STATUS: ADM IN [facility] [address] [place] [address] END OF REPORT
== END 2019-03-22 16:58 | disposition home or self-care (01) ==
LOC: D.ER 15:30 → D.M2 21:42 → OBSVTIME 21:42 → D.M2 03-22 16:58
PROVIDERS: Emergency Medicine; Family Medicine; Internal Medicine Nephrology; ADMIT Internal Medicine Nephrology; ATTEND Internal Medicine Nephrology
DX: E87.5 Hyperkalemia (principal); Z91.15 Patient's noncompliance with renal dialysis; I13.2 Hypertensive heart and chronic kidney disease with heart failure and with stage 5 chronic kidney disease, or end stage renal disease; N18.6 End stage renal disease; I50.9 Heart failure, unspecified; Z99.2 Dependence on renal dialysis; D63.1 Anemia in chronic kidney disease; E83.39 Other disorders of phosphorus metabolism; Z76.5 Malingerer [conscious simulation]

== ENCOUNTER 2019-03-28 08:15 | Emergency (ER) | payer MEDICAID ==
[~2019-03-28] VITALS: Ht 177.8 cm; Wt 74.1 kg
[2019-03-28 08:26] VITALS: Ht 177.8 cm; Wt 74.1 kg
[2019-03-28 09:15] LABS: APPEARANCE HAZY (CLEAR); COLOR YELLOW (YELLOW)
[2019-03-28 09:16] LABS: BILIRUBIN NEGATIVE (NEGATIVE); GLUCOSE 100 mg/dL (NEGATIVE); KETONE NEGATIVE (NEGATIVE); NITRITE NEGATIVE (NEGATIVE); PROTEIN 2+ mg/dL (NEGATIVE); UROBILINOGEN NORMAL (NORMAL)
[2019-03-28 09:17] LABS: BACTERIA FEW /hpf (NONE SEEN); EPITHELIAL CELLS 0-5 /hpf (0-5); GRANULAR CAST RARE /lpf (NONE SEEN); HYALINE CAST RARE /lpf (NONE SEEN); MUCUS <1+ /lpf (NONE SEEN); WHITE CELLS - URINE OCC /hpf (0-5)
[2019-03-28 10:10] LABS: BASOPHILS 0 % (0-2); EOSINOPHILS 0.2 % (0-7); HEMATOCRIT 24.5 % (42.0-54.0); HEMOGLOBIN 8.2 g/dL (13.5-17.5); IMMATURE GRANULOCYTES 0.2 % (0-5); LYMPHOCYTES 15.4 % (15-50); MCH 29.9 pg (26.0-34.0); MCHC 33.5 g/dL (31.0-37.0); MCV 89.4 fL (80.0-100.0); MEAN PLATELET VOLUME 9.9 fL (7.4-10.4); MONOCYTES 10.7 % (2-11); NEUTROPHILS 73.5 % (40-80); RBC 2.74 10x6/uL (4.20-6.10); RDW 16.2 % (11.5-14.5); WBC 8.2 10x3/uL (4.8-10.8)
[2019-03-28 10:13] LABS: PLATELET COUNT 145 10x3/uL (130-400)
[2019-03-28 10:22] LABS: ALBUMIN 3.1 g/dL (3.4-5.0); ANION GAP 26.3 mmol/L (8-16); BILIRUBIN - TOTAL 0.58 mg/dL (0.2-1.3); CALCIUM 7.1 mg/dL (8.5-10.1); CREATININE - SERUM 16.2 mg/dL (0.6-1.3); POTASSIUM - SERUM 4.3 mmol/L (3.5-5.1); PROTEIN - SERUM 8.4 g/dL (6.4-8.2)
[2019-03-28 20:02] VITALS: BP 176/96
== END 2019-03-28 20:02 | disposition home or self-care (01) ==
LOC: D.ER 08:15
PROVIDERS: Emergency Medicine
DX: R52 Pain, unspecified (principal); N18.6 End stage renal disease; I10 Essential (primary) hypertension; F17.200 Nicotine dependence, unspecified, uncomplicated

== ENCOUNTER 2019-04-06 18:37 | Inpatient (IN) | payer MEDICAID ==
[~2019-04-06] VITALS: Ht 177.8 cm; Wt 68.2 kg
[2019-04-06 19:14] LABS: APTT 29.3 SECONDS (22.8-39.4); INR 1.27 (0.85-1.17); PROTIME 15.4 SECONDS (11.6-15.0)
[2019-04-06 19:18] LABS: BASOPHILS 0 % (0-2); EOSINOPHILS 0.7 % (0-7); HEMATOCRIT 25.3 % (42.0-54.0); HEMOGLOBIN 8.4 g/dL (13.5-17.5); IMMATURE GRANULOCYTES 0.3 % (0-5); LYMPHOCYTES 22.4 % (15-50); MCH 30.1 pg (26.0-34.0); MCHC 33.2 g/dL (31.0-37.0); MCV 90.7 fL (80.0-100.0); MEAN PLATELET VOLUME 10.3 fL (7.4-10.4); MONOCYTES 8.8 % (2-11); NEUTROPHILS 67.8 % (40-80); PLATELET COUNT 133 10x3/uL (130-400); RBC 2.79 10x6/uL (4.20-6.10); RDW 15.5 % (11.5-14.5); WBC 6.7 10x3/uL (4.8-10.8)
--- NOTE | 2019-04-06 20:05 | NUR ---
PT REFUSING TO WEAR OXYGEN AT PRESENT.
[2019-04-06 20:49] LABS: ALBUMIN 3.3 g/dL (3.4-5.0); BILIRUBIN - TOTAL 0.61 mg/dL (0.2-1.3); CALCIUM 7.8 mg/dL (8.5-10.1); CARBON DIOXIDE 16.3 mmol/L (21.0-32.0); CREATININE - SERUM 15.4 mg/dL (0.6-1.3); MAGNESIUM - SERUM 2.8 mg/dL (1.8-2.4); PROTEIN - SERUM 8.9 g/dL (6.4-8.2)
[2019-04-06 20:51] LABS: ANION GAP 27.7 mmol/L (8-16)
[2019-04-06 20:53] LABS: TROPONIN-I 0.108 ng/mL (0.000-0.060)
--- NOTE | 2019-04-06 21:46 | NUR ---
RECEIVED FROM ED BY BED. B/P 211/119, HR 92, O2 SAT 97 ON 2 L NC. PT SOB, RR 20. C/O PAIN IN CHEST AND BACK, ALL OVER ACHY FEELING. LUNG SOUNDS CTA, LOWER LOBES DIMINISHED. NO SIGNS OF EDEMA OR SWELLING. L ARM FISTULA, THRILL AND BRUIT PRESENT. PT STATES LAST DIALYSIS WAS TUESDAY (03/31/19).
[2019-04-06 21:54] VITALS: BP 211/119; BMI 23.2
[2019-04-06 22:00] VITALS: BP 213/116
[2019-04-06 22:15] VITALS: BP 206/134
--- NOTE | 2019-04-06 22:15 | NUR ---
PAGED SNOW RANGER RENAL B/P 206/134, HR 96. O2 98 ON 2 L NC.
--- NOTE | 2019-04-06 22:54 | NUR ---
PAGED DR CHAND.
--- NOTE | 2019-04-06 23:05 | NUR ---
SPOKE WITH DR CHAND. NEW ORDERS RECEIVED. PT WILL HAVE DIALYSIS TOMORROW.
[2019-04-06 23:30] VITALS: BP 193/121
--- NOTE | 2019-04-06 23:30 | NUR ---
MEDS GIVEN PER MAR. WILL MONITOR.
[2019-04-06 23:45] VITALS: BP 197/117
[2019-04-07] VITALS (39 sets, daily range): BP systolic 140–188; BP diastolic 73–112; BMI 23.2
--- NOTE | 2019-04-07 01:00 | NUR ---
PT RESTING QUIETLY. WATCHING TV. WILL CONTINUE TO MONITOR.
--- NOTE | 2019-04-07 03:00 | NUR ---
REASSESSMENT COMPLETE. O2 SAT 93 ON 2L NC. B/P ELEVATED, CARDENE DRIP INFUSING. WILL CONTINUE TO MONITOR.
--- NOTE | 2019-04-07 05:00 | NUR ---
REPOSITIONED FOR COMFORT.
--- NOTE | 2019-04-07 07:32 | NUR ---
LAB CAME TO DRAW LABS THIS AM AT 5, COULDN'T GET BLOOD. THEY DID NOT NOTIFY STAFF THAT THEY WERE UNABLE TO DRAW LAB. AT 0630 LAB CAME BACK TO TRY AGAIN, THEY WERE UNSUCCESSFUL. OLLIE CARDENAS TRIED TO GET NEW IV LINE IN PT AND WAS UNABLE TO. AFTER SEVERAL ATTEMPTS WAS UNABLE TO DRAW ANY BLOOD.
[2019-04-07 08:15] LABS: BILIRUBIN - TOTAL 0.66 mg/dL (0.2-1.3); CALCIUM 7.5 mg/dL (8.5-10.1); CARBON DIOXIDE 11.2 mmol/L (21.0-32.0); CREATININE - SERUM 15.2 mg/dL (0.6-1.3); PROTEIN - SERUM 8.3 g/dL (6.4-8.2); TROPONIN-I 0.078 ng/mL (0.000-0.060)
[2019-04-07 08:18] LABS: POTASSIUM - SERUM 7.2 mmol/L (3.5-5.1)
[2019-04-07 08:38] LABS: BASOPHILS 0 % (0-2); EOSINOPHILS 0.2 % (0-7); HEMATOCRIT 23.2 % (42.0-54.0); HEMOGLOBIN 7.7 g/dL (13.5-17.5); IMMATURE GRANULOCYTES 0.2 % (0-5); MCH 29.5 pg (26.0-34.0); MCHC 33.2 g/dL (31.0-37.0); MCV 88.9 fL (80.0-100.0); MEAN PLATELET VOLUME 9.9 fL (7.4-10.4); MONOCYTES 7.6 % (2-11); PLATELET COUNT 128 10x3/uL (130-400); RBC 2.61 10x6/uL (4.20-6.10); RDW 15.2 % (11.5-14.5); WBC 5.4 10x3/uL (4.8-10.8)
--- NOTE | 2019-04-07 09:30 | NUR ---
DIALYSIS HERE SETTING UP. VEIN FINDER OBTAINED FROM LAB, UNABLE TO FIND A VEIN. DR. CHAND HERE NOTIFIED.
[2019-04-07 09:38] LABS: MAGNESIUM - SERUM 2.6 mg/dL (1.8-2.4)
[2019-04-07 09:41] LABS: PHOSPHOROUS 10.1 mg/dL (2.5-4.9)
--- NOTE | 2019-04-07 11:30 | NUR ---
TOLERATING DIALYSIS WELL BLOOD PRESSURE GOOD. CLEAR LIQUID DIET SERVED. ATE WELL
--- NOTE | 2019-04-07 12:30 | NUR ---
DR. CHAND HERE, ORDERS RECEIVED FOR REGULAR RENAL DIET. NAPPING AT INTERVALS. NO DISTRESS.
--- NOTE | 2019-04-07 13:15 | NUR ---
DIALYSIS COMPLETE. PATIENT TOLERATED WELL. ATE 100% CLEAR LIQUID DIET. STATES REMOVED 5 LITERS DURING DIALYSIS
--- NOTE | 2019-04-07 14:20 | NUR ---
LAB DRAWN. PATIENT NAPPING SINCE DIALYSIS , AWAKES TO VERBAL STIMULI. PO MEDS TAKEN.
[2019-04-07 14:31] LABS: HEMATOCRIT 26.8 % (42.0-54.0); HEMOGLOBIN 9.2 g/dL (13.5-17.5)
--- NOTE | 2019-04-07 16:00 | NUR ---
NAPPING NO DISTRESS.
--- NOTE | 2019-04-07 17:00 | NUR ---
RENAL DIET SERVED ATE WELL. PO MEDS TAKNE. NO DISTRESS
--- NOTE | 2019-04-07 17:54 | NUR ---
REPORT CALLED TO [facility]. PATIENT TO TRANSFER TO ROOM 1557
--- NOTE | 2019-04-07 18:47 | NUR ---
RECEIVED PATIENT FROM ICU AND ADMITTED TO ROOM 2127. PATIENT ALERT, ORIENTED. CALL LIGHT PLACED WITHIN REACH. ATTENTION TOWARD TELEVISION. RESP EVEN AND UNLABORED. FAN PROVIDED UPON REQUEST. ICE PROVIDED. DENIES ANY FURTHER NEEDS AT THIS TIME. NO DISTRESS. TOLERATED DIALYSIS WELL PRIOR TO COMING TO THE FLOOR.
--- NOTE | 2019-04-07 22:10 | NUR ---
INITAIL ROUNDS COMPLETED AT 1910 HRS. PT RESTING WITH EYES CLOSED. RESP EVEN AND REGULAR. ASSESSMENT COMPLETED AT 2010 HRS. VSS. AWAKES EASILY TO VERBAL STIMULI. ALERT AND ORIENTED TO PERSON, PLACE AND TIME. PYLE. L ARM FISTULA WTIH GOOD BRUIT AND THRILL. NO IV ACCESS. PT REFUSES IV ACCESS AT THIS TIME. O2 2LNC. LUNGS DIMINISHED IN BASES BILAT. STATES FEELS MUCH IMPROVED. PM SNACK GIVEN. PM MEDS GIVEN PER ORDERS. PT CURRENTLY WATCHING TV. SR UP X2,CALL LIGHT WITHIN REACH.
--- NOTE | 2019-04-07 23:30 | NUR ---
NORCO 7.5MG PO GIVEN FOR C/O CHEST PAIN A ND ELEVATED TEMP OF 100.3.
--- NOTE | 2019-04-08 00:18 | NUR ---
PT STATES CP NOW 01/22. PAIN WITH INSPIRATION. SR UP X2, CALL LIGHT WITHIN REACH.
--- NOTE | 2019-04-08 03:00 | NUR ---
PT AWAKE; DENIES ANY DISCOMFORT OR NEEDS. SR UP X2, CALL LIGHT WITHIN REACH.
--- NOTE | 2019-04-08 05:10 | NUR ---
PT VOMITED 150CC OF GREEN BILE. ATTEMPTED IV X4 WITHOUT SUCCESS. PT STAED HE WAS NOT NAUSEATED ANYMORE AFTER IV ATTEMPTS. CALL LIGHT WITHIN REACH AND SR UP X2.
[2019-04-08 05:28] LABS: BASOPHILS 0.2 % (0-2); EOSINOPHILS 0.5 % (0-7); HEMATOCRIT 26.6 % (42.0-54.0); HEMOGLOBIN 8.8 g/dL (13.5-17.5); IMMATURE GRANULOCYTES 0.5 % (0-5); LYMPHOCYTES 24.8 % (15-50); MCH 29.8 pg (26.0-34.0); MCHC 33.1 g/dL (31.0-37.0); MCV 90.2 fL (80.0-100.0); MEAN PLATELET VOLUME 9.8 fL (7.4-10.4); MONOCYTES 10.7 % (2-11); NEUTROPHILS 63.3 % (40-80); PLATELET COUNT 137 10x3/uL (130-400); RBC 2.95 10x6/uL (4.20-6.10); RDW 15.6 % (11.5-14.5); WBC 4.4 10x3/uL (4.8-10.8)
[2019-04-08 05:52] LABS: PHOSPHOROUS 7.9 mg/dL (2.5-4.9)
[2019-04-08 05:59] LABS: CREATININE - SERUM 10.8 mg/dL (0.6-1.3)
[2019-04-08 06:00] LABS: CARBON DIOXIDE 25.6 mmol/L (21.0-32.0); POTASSIUM - SERUM 4.6 mmol/L (3.5-5.1)
[2019-04-08 06:01] VITALS: BP 141/83
--- NOTE | 2019-04-08 07:00 | NUR ---
RECEIVED REPORT. ASSUMED CARE OF PATIENT. CALL LIGHT WITHIN REACH. PATIENT RESTING WITH EYES CLOSED. EASILY AROUSED. RESP EVEN AND UNLABORED. NO DISTRESS.
[2019-04-08 08:08] VITALS: BP 143/75
--- NOTE | 2019-04-08 10:49 | NUR ---
MEDICATED FOR PAIN. COMPLAIN OF PAIN TO BACK AND SIDE. CURRENTLY ALSO BEING TREATED FOR PNEUMONIA.
[2019-04-08 11:40] VITALS: BP 137/79
--- NOTE | 2019-04-08 15:45 | NUR ---
MEDICATED FOR PAIN AND PROVIDED ICE CHIPS UPON REQUEST. NO DISTRESS.
[2019-04-08 16:52] VITALS: BP 133/66
--- NOTE | 2019-04-08 17:20 | NUR ---
MEDICATED FOR NAUSEA AT THIS TIME. NO DISTRES.
--- NOTE | 2019-04-08 19:30 | NUR ---
RECEIVED REPORT, WILL ASSUME CARE OF PT, COMPLAINS OF N/V, WILL CHECK TO SEE IF HE CAN HAVE SOMETHING, BED IS LOW, SRX2, CALL LIGHT IN REACH, WILL CONTINUE PLAN OF CARE
[2019-04-08 20:00] VITALS: BP 153/79
[2019-04-09] VITALS: BP 148/83
[2019-04-09 04:00] VITALS: BP 150/82
--- NOTE | 2019-04-09 04:43 | NUR ---
I have reviewed this patient and I concur with the Shift Assessment completed by the Licensed Practical Nurse today this shift.
[2019-04-09 06:44] LABS: BASOPHILS 0 % (0-2); EOSINOPHILS 0.6 % (0-7); HEMATOCRIT 24.9 % (42.0-54.0); HEMOGLOBIN 8.1 g/dL (13.5-17.5); IMMATURE GRANULOCYTES 0.9 % (0-5); LYMPHOCYTES 28.4 % (15-50); MCH 29.1 pg (26.0-34.0); MCHC 32.5 g/dL (31.0-37.0); MCV 89.6 fL (80.0-100.0); MEAN PLATELET VOLUME 9.9 fL (7.4-10.4); MONOCYTES 10.6 % (2-11); NEUTROPHILS 59.5 % (40-80); PLATELET COUNT 133 10x3/uL (130-400); RBC 2.78 10x6/uL (4.20-6.10); RDW 15.3 % (11.5-14.5); WBC 4.6 10x3/uL (4.8-10.8)
[2019-04-09 07:07] LABS: ANION GAP 19.8 mmol/L (8-16); CALCIUM 7.3 mg/dL (8.5-10.1); CARBON DIOXIDE 24.1 mmol/L (21.0-32.0); CREATININE - SERUM 12.2 mg/dL (0.6-1.3); PHOSPHOROUS 8.5 mg/dL (2.5-4.9); POTASSIUM - SERUM 4.9 mmol/L (3.5-5.1)
--- NOTE | 2019-04-09 07:45 | NUR ---
PATIENT SITTING UP IN BED REQUESTING BREAKFAST. NO IV ACCESS AT THIS TIME. MEDS GIVEN PER MAR. PLAN OF DISCHARGE DISCUSSED WITH PATIENT.
[2019-04-09 08:17] VITALS: BP 154/91
--- NOTE | 2019-04-09 09:34 | MORECARE ---
CASE MANAGEMENT DISCHARGE SUMMARY PATIENT: ODETTE OH UNIT: [id number] ADM DATE: 04/06/19 AGE: 58 : 64 SEX: M ROOM/BED: D.2128 AUTHOR: ETHAN MAHONEY PHYSICIAN: REFERRING PHYSICIAN: LEONA CHAND MD DATE OF SERVICE: 04/09/19 Discharge Plan Patient Name: ODETTE OH [facility] : 1960 Planned Disposition: Home Anticipated Discharge Date: 04/09/19 Discharge Date: Expected LOS: 3 Initial Reviewer: [email or web address] Initial Review Date: 04/06/2019 Generated: 04/09/19 10:33 am Patient Name: ODETTE OH Page [id number] at 0934 All edits/amendments must be made on the electronic document DICTATION DATE: 04/09/19932 REPULPING SUPERVISOR: LUH 04/09/19932 RPT#: [id number] DC DATE: STATUS: ADM IN [facility] [address] [place] [address] END OF REPORT
--- NOTE | 2019-04-09 09:40 | MORECARE ---
CASE MANAGEMENT DISCHARGE SUMMARY PATIENT: ODETTE OH UNIT: [id number] ADM DATE: 04/06/19 AGE: 58 : 64 SEX: M ROOM/BED: D.2028 AUTHOR: ETHAN MAHONEY PHYSICIAN: REFERRING PHYSICIAN: LEONA CHAND MD DATE OF SERVICE: 04/09/19 Discharge Plan Patient Name: ODETTE OH Facility: [facility]:[place] : 1960 Planned Disposition: Home Anticipated Discharge Date: 04/09/19 Discharge Date: Expected LOS: 3 Initial Reviewer: [email or web address] Initial Review Date: 04/06/2019 Generated: 04/09/19 10:40 am DCPIA - Discharge Planning Initial Assessment Updated by [email or web address]: Jeff Christopher on 04/09/19 9:35 am * Is the patient Alert and Oriented? Yes * How many steps to enter\exit or inside your home? NONE * PCP DR. FRANKLIN IN [place] * Pharmacy [facility] IN [place] * Preadmission Environment Home with Family * ADLs Independent * Equipment Cane * Other Equipment NO MEDICAL EQUIPMENT PROVIDER PREFERENCE * List name and contact numbers for known caregivers / representatives who currently or will assist patient after discharge: ROMA OH, DTR, PAUL LIANG, BROTHER, JENNIFER LIANG, SISTER, * Verbal permission to speak to the caregivers and representatives has been obtained from the patient. N/A * Community resources currently utilized Other * Please name any agencies selected above. OUTPATIENT DIALYSIS, [facility], TUESDAY AND TUESDAY. PATIENT STATES HIS AUNT IS DISABLED AND DOES NOT DRIVE, HE HAS NOT CHANGED ADDRESS WITH MEDICAID FOR MEDICAID TRANSPORT BUS ELIGIBILITY, PT REPORTS HAVING TROUBLE FINDING FRIENDS TO HELP WITH TRANSPORTATION. * Additional services required to return to the preadmission environment? No * Can the patient safely return to the preadmission environment? Yes * Has this patient been hospitalized within the prior 30 days at any hospital? Yes Last DP export: 04/09/19 8:34 a Patient Name: ODETTE OH Page 86001 at 0940 All edits/amendments must be made on the electronic document DICTATION DATE: 04/09/19939 QUILL CLEANING MACHINE OPERATOR: LUH 04/09/19939 RPT#: [id number] DC DATE: STATUS: ADM IN [facility] [address] [facility] [place] [address] END OF REPORT
--- NOTE | 2019-04-09 09:47 | MORECARE ---
CASE MANAGEMENT DISCHARGE SUMMARY PATIENT: ODETTE OH UNIT: [id number] ADM DATE: 04/06/19 AGE: 58 : 64 SEX: M ROOM/BED: D.5931 AUTHOR: MARUDOC PHYSICIAN: REFERRING PHYSICIAN: LEONA CHAND MD DATE OF SERVICE: 04/09/19 Discharge Plan Patient Name: ODETTE OH Facility: [facility]:[place] : 1960 Planned Disposition: Home Anticipated Discharge Date: 04/09/19 Discharge Date: Expected LOS: 3 Initial Reviewer: [email or web address] Initial Review Date: 04/06/2019 Generated: 04/09/19 10:47 am Comments DCP- Discharge Planning Updated by [id number]: Jeff Hedrick on 04/09/19 8:[address] Patient Name: ODETTE OH Encounter No: [id number] : 1960 Primary Insurance: [place]ID [place] Anticipated DC Date: 04-09-2019 Planned Disposition: Home DISCHARGE PLANNING NOTE: CM RECEIVED ORDER FOR DISCHARGE PLANNING FOR TODAY AFTER DIALYSIS IF PT'S CHEST XRAY WAS OK. CM MET WITH PT IN ROOM TO DISCUSS DISCHARGE PLANNING AND NEEDS. PT REPORTS LIVING AT HOME INDEPENDENTLY WITH HIS DISABLED AUNT THAT DOES NOT DRIVE. PT HAS A CANE WITH NO MEDICAL EQUIPMENT PROVIDER PREFERENCE. PT HAS NO OUTSIDE SERVICES ASSISTING IN THE HOME. PT IS SUPPOSED TO GO TO [facility] FOR OUTPATIENT DIALYSIS BUT REPORTS HE DOES NOT LIKE GOING THERE AND DOES NOT HAVE TRANSPORTATION HE HAS NOT CHANGED HIS ADDRESS WITH THE MEDICAID OFFICE TO QUALIFY FOR MEDICAID TRANSPORTATION. PT STATES HE HAS BEEN HAVING TROUBLE FINDING FRIENDS TO TRANSPORT HIM TO AND FROM DIALYSIS. CM DISCUSSED AVAILABILITY OF HOME HEALTH, REHAB SERVICES AND MEDICAL EQUIPMENT. PT DENIES DISCHARGE NEEDS, REPORTS HE DOES NOT KNOW WHO WILL PICK HIM UP FOR DISCHARGE HOME. CM OFFERED TO CALL FAMILY OR FRIENDS TO ASSIST IN FINDING A RIDE, PT STATES HE WILL LET CM KNOW IF HE NEEDS HELP. PT STATES HE DOES NOT FEEL WELL AND TOLD THE DOCTOR THAT HIS CHEST WAS HURTING. CM EXPLAINED THAT THE DOCTOR HAS ORDERED CHEST XRAY AFTER DIALYSIS TODAY AND IF THAT IS OK, PT WILL DISCHARGE. PT PICKED UP HIS EMESIS BAG AND BEGAN MAKING NOISES IF HE WAS GOING TO THROW UP. CM WAITED IN ROOM FOR PT'S SYMPTOMS TO STOP. CM ASKED PT IF HE NEEDED THE NURSE, PT STATES NO. CM ASKED IF PT NEEDS ANYTHING BEFORE CM LEFT ROOM, PT STATES NO. PT PLANS TO RETURN HOME WITH HIS AUNT IN [place]. PT WILL TRY TO FIND HIMSELF A RIDE HOME TODAY, IF HE DISCHARGES. JEFF HEDRICK, CASE MANAGEMENT DCPIA - Discharge Planning Initial Assessment Updated by [id number]: Jeff Hedrick on 04/09/19 9:35 am * Is the patient Alert and Oriented? Yes * How many steps to enter\exit or inside your home? NONE * PCP DR. FRANKLIN IN [place] * Pharmacy [facility] IN [place] * Preadmission Environment Home with Family * ADLs Independent * Equipment Cane * Other Equipment NO MEDICAL EQUIPMENT PROVIDER PREFERENCE * List name and contact numbers for known caregivers / representatives who currently or will assist patient after discharge: ROMA OH, DTR, PAUL LIANG, BROTHER, JENNIFER LIANG, SISTER, * Verbal permission to speak to the caregivers and representatives has been obtained from the patient. N/A * Community resources currently utilized Other * Please name any agencies selected above. OUTPATIENT DIALYSIS, [facility], TUESDAY AND TUESDAY. PATIENT STATES HIS AUNT IS DISABLED AND DOES NOT DRIVE, HE HAS NOT CHANGED ADDRESS WITH MEDICAID FOR MEDICAID TRANSPORT BUS ELIGIBILITY, PT REPORTS HAVING TROUBLE FINDING FRIENDS TO HELP WITH TRANSPORTATION. * Additional services required to return to the preadmission environment? No * Can the patient safely return to the preadmission environment? Yes * Has this patient been hospitalized within the prior 30 days at any hospital? Yes Last DP export: 04/09/19 8:40 a Patient Name: ODETTE OH Page [id number] at 0947 All edits/amendments must be made on the electronic document DICTATION DATE: 04/09/19946 MOLECULAR GENETIC PATHOLOGIST: LUH 04/09/19946 RPT#: [id number] DC DATE: STATUS: ADM IN [facility] [address] [place] [address] END OF REPORT
--- NOTE | 2019-04-09 16:00 | NUR ---
ADOLPH TO D/C JAMAL JULIO
[2019-04-09 16:16] VITALS: Ht 177.8 cm; Wt 68.2 kg
--- NOTE | 2019-04-09 16:55 | MORECARE ---
CASE MANAGEMENT DISCHARGE SUMMARY PATIENT: ODETTE OH UNIT: [id number] ADM DATE: 04/06/19 AGE: 58 : 64 SEX: M ROOM/BED: D.6954 AUTHOR: MARUDOC PHYSICIAN: REFERRING PHYSICIAN: LEONA CHAND MD DATE OF SERVICE: 04/09/19 Discharge Plan Patient Name: ODETTE OH Facility: [facility]:[place] : 1960 Planned Disposition: Home Anticipated Discharge Date: 04/09/19 Discharge Date: Expected LOS: 3 Initial Reviewer: [email or web address] Initial Review Date: 04/06/2019 Generated: 04/09/19 5:54 pm Comments DCP- Discharge Planning Updated by [email or web address]: Jeff Christopher on 04/09/19 3:[address] Patient Name: ODETTE OH Encounter No: [id number] : 1960 Primary Insurance: MEDICAID [place] Anticipated DC Date: 04-09-2019 Planned Disposition: Home DCP follow-up note: CM RECEIVED NOTE FROM NURSE ASKING CM TO CALL A RIDE FOR PT AT [phone]. CM CALLED PT'S DAUGHTER, PEYTON, LEFT MESSAGE ASKING FOR RETURN CALL REGARDING DISCHARGE TRANSPORTATION. AFTER 30 MINUTES, CM FOLLOWED UP WITH PT IN ROOM THERE WAS NO RETURN CALL. PT STATES THAT A CERTIFIED FIRST ASSISTANT GAVE HIM A TAXI RIDE THE LAST TIME. CM EXPLAINED THAT NO TAXI RIDE WAS PROVIDED BY CASE MANAGEMENT DURING LAST VISIT AND IT WAS TWO VISITS AGO CM PROVIDED LAST TAXI RIDE TO THE DEPARTMENT OF HUMAN SERVICES IN [place] SO THAT PT COULD CHANGE HIS ADDRESS TO ACCESS MEDICAID TRANSPORTATION SERVICES TO GET TO AND FROM DIALYSIS, [facility]. CM ADVISED THAT NO FURHTER TAXI SERVICE WILL BE PROVIDED. CM OFFERED TO CONTINUE TO CALL PT'S PERSONAL RESOURCES. PT STATES HE IS GETTING UPSET AND THAT CM IS MAKING HIM ANGRY. CM EXPLAINED THAT CM IS ONLY TRYING TO HELP. PT DENIES FURHTER NEEDS AND STATES HE IS IN NO HURRY TO LEAVE AND SOMEONE WILL COME AND GET HIM. CM NOTIFIED BEDSIDE NURSE. CM SPOKE TO DIRECTOR [facility] REGARDING PT'S REFUSAL TO LEAVE HOSPITAL. CM CANNOT PROVIDE TAXI TRANSPORTATION. PT'S NURSE PROVIDED CM WITH NOTE TO CALL [employer] [phone] AND TELL ESTEFANI THAT PT WILL PAY [employer] LATER FOR THE RIDE. CM CALLED AND ESTEFANI STATES HE WILL CHAIR INSPECTOR AND LEVELER PT LATER. CM ADVISED THAT PT WOULD BE IN THE DOWNSTAIRS LOBBY WAITING. CM NOTIFIED BEDSIDE NURSE. Jeff Christopher, CASE MANAGEMENT DCP- Discharge Planning Updated by [id number]: Jeff Christopher on 04/09/19 8:[address] Patient Name: ODETTE OH Encounter No: [id number] : 1960 Primary Insurance: MEDICAID [facility] Date: 04-09-2019 Planned Disposition: Home DISCHARGE PLANNING NOTE: CM RECEIVED ORDER FOR DISCHARGE PLANNING FOR TODAY AFTER DIALYSIS IF PT'S CHEST XRAY WAS OK. CM MET WITH PT IN ROOM TO DISCUSS DISCHARGE PLANNING AND NEEDS. PT REPORTS LIVING AT HOME INDEPENDENTLY WITH HIS DISABLED AUNT THAT DOES NOT DRIVE. PT HAS A CANE WITH NO MEDICAL EQUIPMENT PROVIDER PREFERENCE. PT HAS NO OUTSIDE SERVICES ASSISTING IN THE HOME. PT IS SUPPOSED TO GO TO [facility] OUTPATIENT DIALYSIS BUT REPORTS HE DOES NOT LIKE GOING THERE AND DOES NOT HAVE TRANSPORTATION HE HAS NOT CHANGED HIS ADDRESS WITH THE MEDICAID OFFICE TO QUALIFY FOR MEDICAID TRANSPORTATION. PT STATES HE HAS BEEN HAVING TROUBLE FINDING FRIENDS TO TRANSPORT HIM TO AND FROM DIALYSIS. CM DISCUSSED AVAILABILITY OF HOME HEALTH, REHAB SERVICES AND MEDICAL EQUIPMENT. PT DENIES DISCHARGE NEEDS, REPORTS HE DOES NOT KNOW WHO WILL PICK HIM UP FOR DISCHARGE HOME. CM OFFERED TO CALL FAMILY OR FRIENDS TO ASSIST IN FINDING A RIDE, PT STATES HE WILL LET CM KNOW IF HE NEEDS HELP. PT STATES HE DOES NOT FEEL WELL AND TOLD THE DOCTOR THAT HIS CHEST WAS HURTING. CM EXPLAINED THAT THE DOCTOR HAS ORDERED CHEST XRAY AFTER DIALYSIS TODAY AND IF THAT IS OK, PT WILL DISCHARGE. PT PICKED UP HIS EMESIS BAG AND BEGAN MAKING NOISES IF HE WAS GOING TO THROW UP. CM WAITED IN ROOM FOR PT'S SYMPTOMS TO STOP. CM ASKED PT IF HE NEEDED THE NURSE, PT STATES NO. CM ASKED IF PT NEEDS ANYTHING BEFORE CM LEFT ROOM, PT STATES NO. PT PLANS TO RETURN HOME WITH HIS AUNT IN [place]. PT WILL TRY TO FIND HIMSELF A RIDE HOME TODAY, IF HE DISCHARGES. SUSI OCASIO MANAGEMENT DCPIA - Discharge Planning Initial Assessment Updated by [id number]: Jeff Christopher on 04/09/19 9:35 am * Is the patient Alert and Oriented? Yes * How many steps to enter\exit or inside your home? NONE * PCP DR. FRANKLIN IN [place] * Pharmacy [facility] IN [place] * Preadmission Environment Home with Family * ADLs Independent * Equipment Cane * Other Equipment NO MEDICAL EQUIPMENT PROVIDER PREFERENCE * List name and contact numbers for known caregivers / representatives who currently or will assist patient after discharge: ROMA OH, DTR, PAUL LIANG, BROTHER, JENNIFER LIANG, SISTER, * Verbal permission to speak to the caregivers and representatives has been obtained from the patient. N/A * Community resources currently utilized Other * Please name any agencies selected above. OUTPATIENT DIALYSIS, [facility], TUESDAY AND TUESDAY. PATIENT STATES HIS AUNT IS DISABLED AND DOES NOT DRIVE, HE HAS NOT CHANGED ADDRESS WITH MEDICAID FOR MEDICAID TRANSPORT BUS ELIGIBILITY, PT REPORTS HAVING TROUBLE FINDING FRIENDS TO HELP WITH TRANSPORTATION. * Additional services required to return to the preadmission environment? No * Can the patient safely return to the preadmission environment? Yes * Has this patient been hospitalized within the prior 30 days at any hospital? Yes Last DP export: 04/09/19 8:47 a Patient Name: ODETTE OH Page [id number] at 1655 All edits/amendments must be made on the electronic document DICTATION DATE: 04/09/191653 COMMUNICATIONS SYSTEMS ENGINEER: LUH 04/09/191653 RPT#: [id number] DC DATE: STATUS: ADM IN [facility] [address] [place] [address] END OF REPORT
== END 2019-04-09 17:01 | disposition home or self-care (01) | DRG 291 ==
LOC: D.ER 18:37 → D.ICU 19:57 → D.M2 19:57 → D.ICU 21:13 → D.M2 04-07 18:30
PROVIDERS: Family Medicine; ADMIT Internal Medicine Nephrology; ATTEND Internal Medicine Nephrology
PROC: 5A1D70Z Performance of Urinary Filtration, Intermittent, Less than 6 Hours Per Day (ICD-10-PCS; principal; 2019-04-07)
DX: I13.2 Hypertensive heart and chronic kidney disease with heart failure and with stage 5 chronic kidney disease, or end stage renal disease (principal); N18.6 End stage renal disease; J18.9 Pneumonia, unspecified organism; I50.9 Heart failure, unspecified; Z99.2 Dependence on renal dialysis; Z91.15 Patient's noncompliance with renal dialysis; E87.5 Hyperkalemia; D63.1 Anemia in chronic kidney disease; B18.2 Chronic viral hepatitis C; K21.9 Gastro-esophageal reflux disease without esophagitis

== ENCOUNTER 2019-04-19 14:46 | Emergency (ER) | payer MEDICAID ==
[~2019-04-19] VITALS: Ht 177.8 cm; Wt 75.0 kg
[2019-04-19 14:49] VITALS: Ht 177.8 cm; Wt 75.0 kg
[2019-04-19 15:41] LABS: BASOPHILS 0 % (0-2); EOSINOPHILS 0.2 % (0-7); HEMOGLOBIN 8.4 g/dL (13.5-17.5); IMMATURE GRANULOCYTES 0.7 % (0-5); LYMPHOCYTES 12.5 % (15-50); MCH 29.7 pg (26.0-34.0); MCHC 33.6 g/dL (31.0-37.0); MCV 88.3 fL (80.0-100.0); MEAN PLATELET VOLUME 9.4 fL (7.4-10.4); MONOCYTES 8.2 % (2-11); NEUTROPHILS 78.4 % (40-80); PLATELET COUNT 113 10x3/uL (130-400); RBC 2.83 10x6/uL (4.20-6.10); RDW 15.6 % (11.5-14.5)
[2019-04-19 16:08] LABS: ANION GAP 31.3 mmol/L (8-16); BILIRUBIN - TOTAL 0.54 mg/dL (0.2-1.3); CALCIUM 7.7 mg/dL (8.5-10.1); CARBON DIOXIDE 13.1 mmol/L (21.0-32.0); CREATININE - SERUM 17.9 mg/dL (0.6-1.3); PROTEIN - SERUM 8.1 g/dL (6.4-8.2)
[2019-04-19 16:19] LABS: POTASSIUM - SERUM 8.4 mmol/L (3.5-5.1)
[2019-04-19 20:50] VITALS: BP 178/101
--- NOTE | 2019-04-20 12:11 | HP ---
PATIENT: ODETTE OH MEDICAL RECORD: [id number] ACCOUNT: [id number] LOCATION:[facility] : 64 ADMISSION DATE: 04/19/19 PCP: ARIC VÁZQUEZ MD HISTORY AND PHYSICAL EXAMINATION REASON FOR ADMISSION: 1. Hyperkalemia. 2. Pulmonary edema due to noncompliance with hemodialysis. HISTORY OF PRESENT ILLNESS: This is an ESRD patient that dialyzes at the hospital presented with potassium of 8.4 with weakness, shortness of breath, dyspnea on exertion. No angina, abdominal pain, nausea, or vomiting. REVIEW OF SYSTEMS: Rest of review of system is negative. PAST MEDICAL HISTORY: 1. ESRD. 2. Hypertension. 3. Recurrent hyperkalemia. 4. Noncompliance with dialysis. 5. Cocaine abuse. 6. Anemia of CKD. 7. Hyperphosphatemia. 8. Secondary hyperparathyroidism. PAST SURGICAL HISTORY: Dialysis access and placement of a tunneled catheter. SOCIAL HISTORY: Alcohol, tobacco, and cocaine. He is single. FAMILY HISTORY: Noncontributory. PHYSICAL EXAMINATION: VITAL SIGNS: Blood pressure 172/99, heart rate is 86, and respiratory rate 22. GENERAL: He is resting in NAD in the Emergency Room. HEENT: Clear. Normocephalic, atraumatic. He is disheveled. NECK: Positive JVD. Tunneled catheter with no drainage but is dirty on exam. CHEST: With crackles bilateral. ABDOMEN: Nontender with positive bowel sounds. Positive lower extremity edema. No focal neurological deficit. Calcium is 8.4. MEDICAL HISTORY: Does not buy any home medications. ASSESSMENT AND PLAN: 1. Hyperkalemia has been arranging dialysis from the Emergency Room. 2. Pulmonary edema. 3. Anemia of chronic kidney disease. We will likely begin erythropoietin once we control his blood pressure. 4. Hyperphosphatemia. We will continue a renal diet. 5. Multi-substance abuse. We will attempt to control his pain. 7. Noncompliance. PLAN: 1. Dialysis. 2. Call the dialysis unit. HISTORY AND PHYSICAL [id number] ODETTE OH TRANSINT:[id number] Voice Confirmation ID: [id number] DOCUMENT ID: [id number] LEONA CHAND MD at 1211 CC: [id number] DICTATION DATE: 04/19/19 1729 RESIDENTIAL SERVICE TECHNICIAN: 04/19/192000 DEP ER 04/19/19 [facility] [address] [place] [address]
== END 2019-04-19 20:50 ==
LOC: D.ER 14:46
PROVIDERS: Family Medicine
DX: I12.9 Hypertensive chronic kidney disease with stage 1 through stage 4 chronic kidney disease, or unspecified chronic kidney disease (principal); N18.6 End stage renal disease; Z99.2 Dependence on renal dialysis; R07.9 Chest pain, unspecified; F19.11 Other psychoactive substance abuse, in remission; Z86.718 Personal history of other venous thrombosis and embolism; Z86.19 Personal history of other infectious and parasitic diseases; E87.5 Hyperkalemia; R06.02 Shortness of breath

== ENCOUNTER 2019-06-01 11:49 | Inpatient (IN) | payer MEDICAID ==
[~2019-06-01] VITALS: Ht 177.8 cm; Wt 74.1 kg
[2019-06-01 12:00] VITALS: BP 201/106
[2019-06-01 12:17] LABS: BASOPHILS 0.1 % (0-2); EOSINOPHILS 0.1 % (0-7); HEMATOCRIT 28.8 % (42.0-54.0); HEMOGLOBIN 9.2 g/dL (13.5-17.5); IMMATURE GRANULOCYTES 0.4 % (0-5); LYMPHOCYTES 15.2 % (15-50); MCH 29.8 pg (26.0-34.0); MCHC 31.9 g/dL (31.0-37.0); MCV 93.2 fL (80.0-100.0); MEAN PLATELET VOLUME 10.4 fL (7.4-10.4); NEUTROPHILS 75.2 % (40-80); RBC 3.09 10x6/uL (4.20-6.10); RDW 17.1 % (11.5-14.5); WBC 7.2 10x3/uL (4.8-10.8)
[2019-06-01 12:24] LABS: PLATELET COUNT 137 10x3/uL (130-400)
[2019-06-01 12:29] LABS: APTT 37.1 SECONDS (22.8-39.4); INR 1.26 (0.85-1.17); PROTIME 15.2 SECONDS (11.6-15.0)
[2019-06-01 13:19] VITALS: BP 198/68
[2019-06-01 13:23] LABS: ALKALINE PHOSPHATASE 89 U/L (46-116); ALT (SGPT) 16 U/L (10-68); BILIRUBIN - TOTAL 0.59 mg/dL (0.2-1.3); CALC OSMOLALITY 309 mosm/kg (275-300); CALCIUM 8.5 mg/dL (8.5-10.1); CARBON DIOXIDE 17.5 mmol/L (21.0-32.0); CHLORIDE - SERUM 103 mmol/L (98-107); CKMB 4.9 U/L (0.0-3.6); CREATINE KINASE 128 UL (21-232); CREATININE - SERUM 14.7 mg/dL (0.6-1.3); GLUCOSE 119 mg/dL (74-106); PROTEIN - SERUM 8.5 g/dL (6.4-8.2); SODIUM 137 mmol/L (136-145); UREA NITROGEN 111 mg/dL (7-18); eGFR NON AFRICAN AMERICAN 4 mL/min (90-120)
[2019-06-01 13:32] LABS: TROPONIN-I 0.172 ng/mL (0.000-0.060)
--- NOTE | 2019-06-01 13:32 | NUR ---
CRITICAL LABS CALLED FROM LAB : TROPONIN= 0.172 K+ =7.1
[2019-06-01 13:33] LABS: POTASSIUM - SERUM 7.1 mmol/L (3.5-5.1); PRO BNP 152555 pg/mL (0-125)
--- NOTE | 2019-06-01 13:33 | NUR ---
PAGED DR RED
--- NOTE | 2019-06-01 13:59 | NUR ---
REPORT CALLED TO OLLIE CURTIS
--- NOTE | 2019-06-01 14:11 | NUR ---
DR RED CALLED BACK INFORMED OF K+ 7.1 AND TROPONIN 0.172
[2019-06-01 14:30] VITALS: BP 184/88
--- NOTE | 2019-06-01 14:31 | NUR ---
TRANSPORTED TO ROOM #2135. CONDITION STABLE
--- NOTE | 2019-06-01 14:45 | NUR ---
RECEIVED PT FROM ER. PT IS AAO AND UP AD LANDRY. RR LABORED ON EXERTION ON 3L 02. VSS AND WNL. PT DEMANDING FOOD UPON ENTERING THE ROOM. NO FURTHER S/S OF DISTRESS NOTED. PT CURRENTLY LYING SEMI FOWLERS. CALL LIGHT W/I REACH. WILL CTM. QUICKSTART, HISTORY, AND MED REQ COMPLETE.
[2019-06-01 14:49] VITALS: BP 198/68; BMI 23.4
[2019-06-01 14:57] VITALS: BMI 23.3
[2019-06-01 15:29] VITALS: Ht 177.8 cm; Wt 74.1 kg
[2019-06-01 16:00] VITALS: BP 201/106
--- NOTE | 2019-06-01 17:14 | NUR ---
PREVIOUS PIV FROM ER INFILTRATED. ATTEMPTED TO INITIATE NEW PIV BUT WAS UNSUCCESSFUL. NOTIFIED ER WHO SENT A PHYSICIAN TO ATTEMPT AN EJ BUT WAS ALSO UNSUCCESSFUL. NOTIFIED WHO STATED TO HOLD IV MEDS AND PLACE TELEMETRY ON PT. TELEMETRY PLACED. WILL CTM.
[2019-06-01 17:30] LABS: CALCIUM 8.5 mg/dL (8.5-10.1); CARBON DIOXIDE 17.5 mmol/L (21.0-32.0); CREATININE - SERUM 14.5 mg/dL (0.6-1.3)
[2019-06-01 17:38] LABS: POTASSIUM - SERUM 7.5 mmol/L (3.5-5.1); TROPONIN-I 0.18 ng/mL (0.000-0.060)
--- NOTE | 2019-06-01 22:20 | NUR ---
PT RETURNED TO ROOM FROM DIALYSIS VIA BED.
[2019-06-02] VITALS: BP 189/99
--- NOTE | 2019-06-02 02:45 | NUR ---
PT RESTING IN BED WATCHING TV. DENIES NEEDS AT THIS TIME. RR EVEN ON 3L NC. NO NEEDS EXPRESSED. SR X2. CALL LIGHT IN REACH. WILL CTM.
[2019-06-02 04:00] VITALS: BP 174/91
--- NOTE | 2019-06-02 07:45 | NUR ---
A/A/OX4. NO COMPLAINTS OR REQUESTS AT PRESENT TIME. DENIES PAIN OR DISCOMFORT. ASSESSMENT COMPLETED AND WILL CONTINUE POC.
[2019-06-02 08:19] VITALS: BP 173/89
[2019-06-02 08:46] LABS: BASOPHILS 0 % (0-2); EOSINOPHILS 0.2 % (0-7); HEMOGLOBIN 8.6 g/dL (13.5-17.5); IMMATURE GRANULOCYTES 0.2 % (0-5); LYMPHOCYTES 23.5 % (15-50); MCH 30.2 pg (26.0-34.0); MCHC 31.9 g/dL (31.0-37.0); MCV 94.7 fL (80.0-100.0); MEAN PLATELET VOLUME 10.1 fL (7.4-10.4); MONOCYTES 7.9 % (2-11); NEUTROPHILS 68.2 % (40-80); PLATELET COUNT 119 10x3/uL (130-400); RBC 2.85 10x6/uL (4.20-6.10); RDW 16.9 % (11.5-14.5); WBC 5.4 10x3/uL (4.8-10.8)
[2019-06-02 08:58] LABS: CALCIUM 8.3 mg/dL (8.5-10.1)
[2019-06-02 09:00] LABS: ANION GAP 15.2 mmol/L (8-16); CARBON DIOXIDE 25.4 mmol/L (21.0-32.0); CREATININE - SERUM 10.3 mg/dL (0.6-1.3); POTASSIUM - SERUM 4.6 mmol/L (3.5-5.1)
[2019-06-02 09:22] LABS: TROPONIN-I 0.165 ng/mL (0.000-0.060)
[2019-06-02 11:41] VITALS: BP 142/76
--- NOTE | 2019-06-02 19:21 | NUR ---
PT CARE ASSUMED. BEDSIDE SHIFT REPORT COMPLETE. PT SITTING UP IN BED IN HIGH FOWLERS. RR EVEN AND UNLABORED ON 3L NC. NO S/S OF DISTRESS NOTED. NO C/O OR CONCERNS AT THIS TIME. SR X2. CALL LIGHT IN REACH. WILL CTM.
[2019-06-02 19:48] VITALS: BP 153/74
[2019-06-02 23:50] VITALS: BP 124/65
--- NOTE | 2019-06-03 02:14 | NUR ---
PT PULLED OFF TELEMETRY AND REFUSES TO LET US PUT BACK ON.
[2019-06-03 04:00] VITALS: BP 155/85
[2019-06-03 05:46] LABS: BASOPHILS 0.2 % (0-2); EOSINOPHILS 0.3 % (0-7); HEMATOCRIT 25.1 % (42.0-54.0); HEMOGLOBIN 8.8 g/dL (13.5-17.5); IMMATURE GRANULOCYTES 0.3 % (0-5); MCH 35.1 pg (26.0-34.0); MCHC 35.1 g/dL (31.0-37.0); MEAN PLATELET VOLUME 11.4 fL (7.4-10.4); MONOCYTES 7.8 % (2-11); NEUTROPHILS 72.4 % (40-80); PLATELET COUNT 133 10x3/uL (130-400); RBC 2.51 10x6/uL (4.20-6.10); RDW 17.6 % (11.5-14.5)
[2019-06-03 05:59] LABS: CALCIUM 8.1 mg/dL (8.5-10.1); CARBON DIOXIDE 28.8 mmol/L (21.0-32.0)
[2019-06-03 06:08] LABS: ANION GAP 11.5 mmol/L (8-16); CREATININE - SERUM 6.9 mg/dL (0.6-1.3); POTASSIUM - SERUM 4.3 mmol/L (3.5-5.1)
[2019-06-03 07:52] VITALS: BP 160/88
[2019-06-03 12:00] VITALS: BP 141/83
[2019-06-03 15:47] VITALS: BP 147/479
--- NOTE | 2019-06-03 17:29 | NUR ---
I have reviewed this patient and I concur with the Shift Assessment completed by the Licensed Practical Nurse today this shift.
--- NOTE | 2019-06-03 19:26 | NUR ---
AROUSES AND VOICES NO NEEDS AT THIS TIME. BED LOW AND LOCKED AND CALL LIGT WITH PT LCTA O2 IS AT 3L AND THERE IS NO IV ACCESS
[2019-06-03 20:00] VITALS: BP 150/80
[2019-06-04 00:34] VITALS: BP 134/76
[2019-06-04 04:00] VITALS: BP 149/83
--- NOTE | 2019-06-04 04:03 | NUR ---
I have reviewed this patient and I concur with the Shift Assessment completed by the Licensed Practical Nurse today this shift.
[2019-06-04 05:53] LABS: BASOPHILS 0 % (0-2); EOSINOPHILS 0.4 % (0-7); HEMATOCRIT 29.5 % (42.0-54.0); HEMOGLOBIN 9.3 g/dL (13.5-17.5); IMMATURE GRANULOCYTES 0.2 % (0-5); MCH 29.3 pg (26.0-34.0); MCHC 31.5 g/dL (31.0-37.0); MEAN PLATELET VOLUME 10.2 fL (7.4-10.4); MONOCYTES 8.7 % (2-11); NEUTROPHILS 71.7 % (40-80); PLATELET COUNT 132 10x3/uL (130-400); WBC 5.4 10x3/uL (4.8-10.8)
[2019-06-04 05:57] LABS: MCV 93.1 fL (80.0-100.0); RBC 3.17 10x6/uL (4.20-6.10)
[2019-06-04 06:27] LABS: ANION GAP 17.4 mmol/L (8-16); CALCIUM 8.2 mg/dL (8.5-10.1); CARBON DIOXIDE 28.1 mmol/L (21.0-32.0); POTASSIUM - SERUM 4.5 mmol/L (3.5-5.1)
[2019-06-04 06:29] LABS: CREATININE - SERUM 8.8 mg/dL (0.6-1.3)
[2019-06-04 07:38] VITALS: BP 155/82
--- NOTE | 2019-06-04 09:39 | MORECARE ---
CASE MANAGEMENT DISCHARGE SUMMARY PATIENT: ODETTE OH UNIT: [id number] ADM DATE: 06/01/19 AGE: 58 : 64 SEX: M ROOM/BED: D.2135 AUTHOR: ETHAN MAHONEY PHYSICIAN: REFERRING PHYSICIAN: TRACY RED DO DATE OF SERVICE: 06/04/19 Discharge Plan Patient Name: ODETTE OH [facility] [facility] 1960 Planned Disposition: Home Anticipated Discharge Date: 06/04/19 Discharge Date: Expected LOS: 3 Initial Reviewer: [email or web address] Initial Review Date: 06/04/2019 Generated: 06/04/19 10:38 am Patient Name: ODETTE OH Page [id number] at 0939 All edits/amendments must be made on the electronic document DICTATION DATE: 06/04/19937 STATION JAILER: [facility] 06/04/19937 RPT#: [id number] DC DATE: STATUS: ADM IN [facility] [address] [place] [address] END OF REPORT
--- NOTE | 2019-06-04 09:45 | MORECARE ---
CASE MANAGEMENT DISCHARGE SUMMARY PATIENT: ODETTE OH UNIT: [id number] ADM DATE: 06/01/19 AGE: 58 : 64 SEX: M ROOM/BED: D.2200 AUTHOR: MARU,DOC PHYSICIAN: REFERRING PHYSICIAN: TRACY RED DO DATE OF SERVICE: 06/04/19 Discharge Plan Patient Name: ODETTE OH Facility: [facility]:[place] : 1960 Planned Disposition: Home Anticipated Discharge Date: 06/04/19 Discharge Date: Expected LOS: 3 Initial Reviewer: [email or web address] Initial Review Date: 06/04/2019 Generated: 06/04/19 10:45 am Comments DCP- Discharge Planning Updated by [email or web address]: Jeff Christopher on 06/04/19 8:[address] Patient Name: ODETTE OH Admission Status: ER Accout number: [id number] Admission Date: 06-01-2019 : 1960 Admission Diagnosis: Attending: SHANTEL Current LOS: 3 Anticipated DC Date: 06-04-2019 Planned Disposition: Home Primary Insurance: MEDICAID [place] Discharge Planning Comments: CM RECEIVED ORDER FOR DISCHARGE FOR TODAY AFTER DIALYSIS. CM MET WITH PT IN ROOM TO DISCUSS DISCHARGE PLANNING AND NEEDS. PT REPORTS LIVING AT HOME INDEPENDENTLY WITH HIS DISABLED AUNT THAT DOES NOT DRIVE. PT HAS A CANE WITH NO MEDICAL EQUIPMENT PROVIDER PREFERENCE. PT HAS NO OUTSIDE SERVICES ASSISTING IN THE HOME. PT IS SUPPOSED TO GO TO [facility] FOR OUTPATIENT DIALYSIS BUT REPORTS HE DOES NOT LIKE GOING THERE AND DOES NOT HAVE TRANSPORTATION; PT STATES HE TALKED TO "[facility]" ABOUT MEDICAID TRANSPORATION AND DOES NOT KNOW WHAT IS GOING ON WITH THEM. PT STATES HE HAS TROUBLE FINDING FRIENDS OR FAMILY TO TRANSPORT HIM TO AND FROM DIALYSIS. CM DISCUSSED AVAILABILITY OF HOME HEALTH, REHAB SERVICES AND MEDICAL EQUIPMENT. PT DENIES DISCHARGE NEEDS, REPORTS HE DOES NOT KNOW WHO WILL PICK HIM UP FOR DISCHARGE HOME, HE WILL HAVE TO CALL SOMEONE; CM OBSERVED PT'S CELL PHONE ON THE TABLE IN FRONT OF PT. CM OFFERED TO CALL FAMILY OR FRIENDS TO ASSIST IN FINDING A RIDE. PT ASKED CM TO CALL HIS DAUGHTER PEYTON, . CM CALLED PEYTON, INFORMED HER OF PT'S REQUEST TO BE PICKED UP FROM HOSPITAL TODAY, CM INFORMED PEYTON THAT PT SHOULD BE READY TO GO AFTER 1PM TODAY. PEYTON INFORMED CM THAT SHE WILL CALL PT BACK AND LET HIM KNOW WHO IS PICKING HIM UP AFTER LUNCH TODAY. PT PLANS TO RETURN HOME WITH HIS AUNT IN [place]. PT'S DAUGHTER PEYTON IS ARRANGING TRANSPORTATION TO STUDENT SPECIALIST PT AFTER LUNCH TODAY. Reexaminer: Jeff Christopher DCPIA - Discharge Planning Initial Assessment Updated by [id number]: Jeff Christopher on 06/04/19 9:39 am * Is the patient Alert and Oriented? Yes * How many steps to enter\\exit or inside your home? NONE * PCP DR. FRANKLIN IN [place] * Pharmacy [facility] IN [place] * Preadmission Environment Home with Family * ADLs Independent * Equipment Cane * Other Equipment NO MEDICAL EQUIPMENT PROVIDER PREFERENCE * List name and contact numbers for known caregivers / representatives who currently or will assist patient after discharge: PEYTON, DAUGHTER, * Verbal permission to speak to the caregivers and representatives has been obtained from the patient. Yes * Community resources currently utilized Other * Please name any agencies selected above. [facility], PT IS NOT ABLE TO USE MEDICAID TRANSPORTATION HE HAS NOT CHANGED HIS ADDRESS/ COUNTY OF SERVICE WITH DEPARTMENT OF HUMAN SERVICES. * Additional services required to return to the preadmission environment? No * Can the patient safely return to the preadmission environment? Yes * Has this patient been hospitalized within the prior 30 days at any hospital? No Last DP export: 06/04/19 8:39 Patient Name: ODETTE OH Page 09284 at 0945 All edits/amendments must be made on the electronic document DICTATION DATE: 06/04/19944 MODEL MAKER FIREARMS: [facility] 06/04/19944 RPT#: [id number] MO DATE: STATUS: ADM IN [facility] [address] [place] [address] END OF REPORT
[2019-06-04 11:27] VITALS: BP 150/77
--- NOTE | 2019-06-04 16:26 | NUR ---
PT ESCORTED OUT VIA WHEELCHAIR TO POV DAUGHTER MARTINEZ
== END 2019-06-04 16:28 | disposition home or self-care (01) | DRG 291 ==
LOC: D.ER 11:49 → D.M2 13:22 → OBSVTIME 13:22 → D.M2 19:46
PROVIDERS: Family Medicine; ADMIT Internal Medicine; ATTEND Internal Medicine
PROC: 5A1D70Z Performance of Urinary Filtration, Intermittent, Less than 6 Hours Per Day (ICD-10-PCS; principal; 2019-06-02)
DX: I13.2 Hypertensive heart and chronic kidney disease with heart failure and with stage 5 chronic kidney disease, or end stage renal disease (principal); N18.6 End stage renal disease; J81.0 Acute pulmonary edema; I50.9 Heart failure, unspecified; Z99.2 Dependence on renal dialysis; E87.5 Hyperkalemia; D63.1 Anemia in chronic kidney disease; R79.89 Other specified abnormal findings of blood chemistry

== ENCOUNTER 2019-06-07 08:21 | Emergency (ER) | payer MEDICAID ==
[~2019-06-07] VITALS: Ht 177.8 cm; Wt 74.1 kg
[2019-06-07 08:28] VITALS: Ht 177.8 cm; Wt 74.1 kg
[2019-06-07 15:50] VITALS: BP 185/88
== END 2019-06-07 15:35 | disposition home or self-care (01) ==
LOC: D.ER 08:21
DX: I13.0 Hypertensive heart and chronic kidney disease with heart failure and stage 1 through stage 4 chronic kidney disease, or unspecified chronic kidney disease (principal); N18.6 End stage renal disease; I50.9 Heart failure, unspecified; F14.10 Cocaine abuse, uncomplicated; Z91.15 Patient's noncompliance with renal dialysis

== ENCOUNTER 2019-06-11 12:39 | Emergency (ER) | payer MEDICAID ==
[~2019-06-11] VITALS: Ht 177.8 cm; Wt 74.1 kg
[2019-06-11 12:40] VITALS: Ht 177.8 cm; Wt 74.1 kg
[2019-06-11 14:03] LABS: BASOPHILS 0.1 % (0-2); EOSINOPHILS 0.4 % (0-7); HEMATOCRIT 28.3 % (42.0-54.0); HEMOGLOBIN 9.3 g/dL (13.5-17.5); IMMATURE GRANULOCYTES 0.6 % (0-5); LYMPHOCYTES 15.6 % (15-50); MCH 30.8 pg (26.0-34.0); MCHC 32.9 g/dL (31.0-37.0); MCV 93.7 fL (80.0-100.0); MEAN PLATELET VOLUME 10.4 fL (7.4-10.4); MONOCYTES 8.8 % (2-11); NEUTROPHILS 74.5 % (40-80); PLATELET COUNT 115 10x3/uL (130-400); RBC 3.02 10x6/uL (4.20-6.10); RDW 16.7 % (11.5-14.5); WBC 6.9 10x3/uL (4.8-10.8)
[2019-06-11 14:36] LABS: ALBUMIN 3.2 g/dL (3.4-5.0); ALKALINE PHOSPHATASE 89 U/L (46-116); ALT (SGPT) 20 U/L (10-68); BILIRUBIN - TOTAL 0.67 mg/dL (0.2-1.3); CALC OSMOLALITY 314 mosm/kg (275-300); CARBON DIOXIDE 22.6 mmol/L (21.0-32.0); CHLORIDE - SERUM 104 mmol/L (98-107); CKMB 3.2 U/L (0.0-3.6); CREATINE KINASE 89 UL (21-232); CREATININE - SERUM 12.1 mg/dL (0.6-1.3); GLUCOSE 97 mg/dL (74-106); POTASSIUM - SERUM 5.6 mmol/L (3.5-5.1); PROTEIN - SERUM 8.5 g/dL (6.4-8.2); SODIUM 144 mmol/L (136-145); UREA NITROGEN 91 mg/dL (7-18); eGFR NON AFRICAN AMERICAN 5 mL/min (90-120)
[2019-06-11 14:43] LABS: TROPONIN-I 0.191 ng/mL (0.000-0.060)
[2019-06-11 17:13] VITALS: BP 206/123
== END 2019-06-11 20:00 ==
LOC: D.ER 12:39
PROVIDERS: Family Medicine
DX: R06.00 Dyspnea, unspecified (principal); I10 Essential (primary) hypertension; K21.9 Gastro-esophageal reflux disease without esophagitis; F17.200 Nicotine dependence, unspecified, uncomplicated

== ENCOUNTER 2019-06-20 12:25 | Inpatient (IN) | payer MEDICAID ==
[~2019-06-20] VITALS: Ht 177.8 cm; Wt 74.1 kg
[2019-06-20 14:32] LABS: BASOPHILS 0.1 % (0-2); EOSINOPHILS 0.1 % (0-7); HEMOGLOBIN 9.7 g/dL (13.5-17.5); IMMATURE GRANULOCYTES 1.2 % (0-5); LYMPHOCYTES 8.6 % (15-50); MCH 32.7 pg (26.0-34.0); MCHC 34.6 g/dL (31.0-37.0); MCV 94.3 fL (80.0-100.0); MEAN PLATELET VOLUME 10.3 fL (7.4-10.4); MONOCYTES 8.7 % (2-11); NEUTROPHILS 81.3 % (40-80); RBC 2.97 10x6/uL (4.20-6.10); RDW 18.8 % (11.5-14.5); WBC 7.7 10x3/uL (4.8-10.8)
--- NOTE | 2019-06-20 14:33 | NUR ---
PT HYPERTENSIVE SINCE ARRIVAL TO THE ED. UNABLE TO ESTABLISH IV ACCESS. TREATING PROVIDER NOTIFIED, THIS NURSE INSTRUCTED TO DC ORDER FOR IV MEDICATIONS AND TO ADMINISTER 0.2MG CLONIDINE PO
[2019-06-20 14:38] LABS: PLATELET COUNT 180 10x3/uL (130-400)
--- NOTE | 2019-06-20 14:45 | NUR ---
PT LEAVING ED AT THIS TIME VIA STRETCHER FOR DIAYSIS UNIT.
[2019-06-20 15:47] LABS: ALBUMIN 3.5 g/dL (3.4-5.0); ANION GAP 27.7 mmol/L (8-16); BILIRUBIN - TOTAL 0.65 mg/dL (0.2-1.3); CALCIUM 7.2 mg/dL (8.5-10.1); CARBON DIOXIDE 18.6 mmol/L (21.0-32.0); CREATININE - SERUM 15.4 mg/dL (0.6-1.3); MAGNESIUM - SERUM 2.9 mg/dL (1.8-2.4); PROTEIN - SERUM 8.9 g/dL (6.4-8.2)
[2019-06-20 15:50] LABS: POTASSIUM - SERUM 7.3 mmol/L (3.5-5.1)
--- NOTE | 2019-06-20 15:50 | NUR ---
NOTIFIED BY LAB OF CRITICAL POTASSIUM OF 7.3 FROM RE-DRAW. CRITICAL LAB SHEET COMPLETED AND PLACED ON PT'S CHART. TREATING PROVIDER NOTIFIED. PT CURRENTLY IN DIALYSIS
--- NOTE | 2019-06-20 17:02 | NUR ---
REPORT CALLED TO GUERITA RECEIVING NURSE. ROOM 2137 ASSIGNED TO PT AT 1651, ROOM MARKED DIRTY. NOTIFIED DIALYSIS THAT PT MAY GO TO 2137 WHEN DIALYSIS IS COMPLETE. PT'S BELONGINGS IN THE ED TAKEN TO ASSIGNED ROOM.
--- NOTE | 2019-06-20 18:33 | NUR ---
PT IN ROOM FROM DIALYSIS. DENIES NEEDS OR PAIN AT THIS TIME. EATING DINNER AT THE MOMENT. LEFT ARM RESERVE. NO IV ACCESS AT THIS TIME. RR EVEN AND UNLABORED. BED IN LOWEST POSITION. CALL LIGHT WITHIN REACH. PT ORIENTED TO ROOM .WILL CONTINUE TO MONITOR.
--- NOTE | 2019-06-20 19:00 | NUR ---
ATTEMPTED TO DO THE MED REC ON PT BUT HE STATES HE DOES NOT KNOW WHAT ALL MEDICATIONS HE TAKES.
--- NOTE | 2019-06-20 20:54 | NUR ---
NAVEED [facility] APN NOTIFIED OF PTS BLOOD PRESSURE, 199/111. ORDERS TO GIVE THE NORVASC THAT IS ON THE MAR BUT WAS NOT GIVEN TODAY BECAUSE HE WAS IN DIALYSIS.
[2019-06-20 21:02] VITALS: BP 199/111; BMI 26.2
[2019-06-20 22:45] VITALS: BP 164/88
[2019-06-21] VITALS: BP 179/93
--- NOTE | 2019-06-21 01:54 | NUR ---
PT'S BLOOD PRESSURE IS 179/93. SEE MAR FOR PRN ADMINISTRATION OF CLONIDINE. WILL CONTINUE TO MONITOR.
[2019-06-21 04:00] VITALS: BP 169/86
[2019-06-21 06:31] LABS: BASOPHILS 0 % (0-2); EOSINOPHILS 0.1 % (0-7); HEMATOCRIT 28.6 % (42.0-54.0); HEMOGLOBIN 9.2 g/dL (13.5-17.5); IMMATURE GRANULOCYTES 0.4 % (0-5); LYMPHOCYTES 12.6 % (15-50); MCH 29.7 pg (26.0-34.0); MCHC 32.2 g/dL (31.0-37.0); MONOCYTES 8.9 % (2-11); PLATELET COUNT 177 10x3/uL (130-400); RDW 19.2 % (11.5-14.5); WBC 6.8 10x3/uL (4.8-10.8)
[2019-06-21 06:37] LABS: MCV 92.3 fL (80.0-100.0)
--- NOTE | 2019-06-21 07:00 | NUR ---
REPORT RECEIVED. RESTING WITH EASE RESP EVEN WITHOUT LABOR. LEFT ARM RESERVE. CL IN REACH. BED IN LOWEST POSITION AND LOCKED. SAFETY PRECAUTIONS IN PLACE.
[2019-06-21 07:14] LABS: ANION GAP 22.2 mmol/L (8-16); CALCIUM 7.2 mg/dL (8.5-10.1); CARBON DIOXIDE 22.8 mmol/L (21.0-32.0); CREATININE - SERUM 12.6 mg/dL (0.6-1.3); MAGNESIUM - SERUM 2.5 mg/dL (1.8-2.4)
[2019-06-21 07:23] LABS: PHOSPHOROUS 9.6 mg/dL (2.5-4.9)
[2019-06-21 08:58] VITALS: BP 175/99
[2019-06-21 14:57] VITALS: Ht 177.8 cm; Wt 74.1 kg
--- NOTE | 2019-06-21 17:51 | NUR ---
b/p is 185/93 at this time prn clonidine given po per orders
[2019-06-21 18:43] VITALS: BP 187/91
--- NOTE | 2019-06-21 19:30 | NUR ---
AWAKENS WHEN I ENTER ROOM AND DENIES NEEDS AT THIS TIME BED IS LOW AND LOCKED CALL LIGHT IS WITH PT LCTA AND SKIN WARM AND DRY
[2019-06-21 20:00] VITALS: BP 166/81
[2019-06-22] VITALS: BP 165/87
--- NOTE | 2019-06-22 01:52 | NUR ---
I have reviewed this patient and I concur with the Shift Assessment completed by the Licensed Practical Nurse today this shift.
[2019-06-22 04:00] VITALS: BP 187/95
--- NOTE | 2019-06-22 07:35 | NUR ---
RESTING WITH EYES CLOSED. OPENED EYES TO NAME. DENIES ANY PAIN AT PRESENT TIME AND NO REQUESTS VOICED. 02 OFF AT PRESENT TIME WITH NO RESP DISTRESS NOTED. RESP EVEN AND UNLABORED. ASSSESSMENT COMPLETED AND WILL CONTINUE POC.
[2019-06-22 09:35] VITALS: BP 176/91
--- NOTE | 2019-06-22 09:52 | MORECARE ---
CASE MANAGEMENT DISCHARGE SUMMARY PATIENT: ODETTE OH UNIT: [id number] ADM DATE: 06/20/19 AGE: 58 : 64 SEX: M ROOM/BED: D.2137 AUTHOR: ETHAN MAHONEY PHYSICIAN: REFERRING PHYSICIAN: ZAHRA THORNTON MD DATE OF SERVICE: 06/22/19 Discharge Plan Patient Name: ODETTE OH [facility] [facility] 1960 Planned Disposition: Home Anticipated Discharge Date: 06/22/19 Discharge Date: Expected LOS: 2 Initial Reviewer: [email or web address] Initial Review Date: 06/20/2019 Generated: 06/22/19 10:52 am Patient Name: ODETTE OH Page 23906 at 0952 All edits/amendments must be made on the electronic document DICTATION DATE: 06/22/19951 HOTEL SUPERINTENDENT: [facility] 06/22/19951 RPT#: [id number] DC DATE: STATUS: ADM IN [facility] [address] [place] [address] END OF REPORT
--- NOTE | 2019-06-22 09:59 | MORECARE ---
CASE MANAGEMENT DISCHARGE SUMMARY PATIENT: ODETTE OH UNIT: [id number] ADM DATE: 06/20/19 AGE: 58 : 64 SEX: M ROOM/BED: D.2137 AUTHOR: ETHNA MAHONEY PHYSICIAN: REFERRING PHYSICIAN: ZAHRA THORNTON MD DATE OF SERVICE: 06/22/19 Discharge Plan Patient Name: ODETTE HO Facility: [facility]:[place] : 1960 Planned Disposition: Home Anticipated Discharge Date: 06/22/19 Discharge Date: Expected LOS: 2 Initial Reviewer: [email or web address] Initial Review Date: 06/20/2019 Generated: 06/22/19 10:58 am DCPIA - Discharge Planning Initial Assessment Updated by [email or web address]: Jeff Christopher on 06/22/19 9:53 am * Is the patient Alert and Oriented? Yes * How many steps to enter\exit or inside your home? NONE * PCP NONE: PT REPORTS DR. VÁZQUEZ; SHORE WORKING SUPERVISOR CALLED DR. KOEHLER' OFFICE WHO ADVISED THAT PT HAD BEEN DISMISSED FROM CLINIC. * Pharmacy [facility] IN [place] * Preadmission Environment Home with Family * ADLs Independent * Equipment Cane * Other Equipment NO MEDICAL EQUIPMENT PROVIDER PREFERENCE * List name and contact numbers for known caregivers / representatives who currently or will assist patient after discharge: PHOEBE TODD, * Verbal permission to speak to the caregivers and representatives has been obtained from the patient. N/A * Community resources currently utilized Other * Please name any agencies selected above. OUTPATIENT DIALYSIS, [facility], [facility]; PT REPORTS HE HAS MEDICAID TRANSPORT BUT HAS TO PAY $25 PER TRIP. * Additional services required to return to the preadmission environment? No * Can the patient safely return to the preadmission environment? Yes * Has this patient been hospitalized within the prior 30 days at any hospital? Yes Last DP export: 06/22/19 8:52 a Patient Name: ODETTE OH Page 53162 at 0959 All edits/amendments must be made on the electronic document DICTATION DATE: 06/22/19957 HOSIERY LOOPER: [facility] 06/22/19957 RPT#: [id number] DC DATE: STATUS: ADM IN [facility] [address] [facility] [place] [address] END OF REPORT
--- NOTE | 2019-06-22 10:07 | MORECARE ---
CASE MANAGEMENT DISCHARGE SUMMARY PATIENT: ODETTE OH UNIT: [id number] ADM DATE: 06/20/19 AGE: 58 : 64 SEX: M ROOM/BED: D.6178 AUTHOR: MARU,DOC PHYSICIAN: REFERRING PHYSICIAN: ZAHRA THORNTON MD DATE OF SERVICE: 06/22/19 Discharge Plan Patient Name: ODETTE OH Facility: [facility]:[place] : 1960 Planned Disposition: Home Anticipated Discharge Date: 06/22/19 Discharge Date: Expected LOS: 2 Initial Reviewer: [email or web address] Initial Review Date: 06/20/2019 Generated: 06/22/19 11:06 am Comments DCP- Discharge Planning Updated by [email or web address]: Jeff Christopher on 06/22/19 9:[address] Patient Name: ODETTE OH Admission Status: ER Accout number: [id number] Admission Date: 06-20-2019 : 1960 Admission Diagnosis: Attending: ZAHRA THORNTON Current LOS: 2 Anticipated DC Date: 06-22-2019 Planned Disposition: Home Primary Insurance: MEDICAID [place] Discharge Planning Comments: CM RECEIVED ORDER FOR PT WITH MULTIPLE READMISSIONS, NO TRANSPORTATION TO DIALYSIS. CM MET WITH PT IN ROOM TO DISCUSS DISCHARGE PLANNING AND NEEDS. PT REPORTS LIVING AT HOME INDEPENDENTLY WITH HIS AUNT WHO IS ELDERLY AND DISABLED. PT HAS A CANE WITH NO MEDICAL EQUIPMENT PROVIDER PREFERENCE. PT HAS NO OUTSIDE SERVICES ASSISTING IN THE HOME. CM DISCUSSED AVAILABILITY OF HOME HEALTH, REHAB SERVICES AND MEDICAL EQUIPMENT. PT DENIES DISCHARGE NEEDS, REPORTS HIS DAUGHTER OR ONE OF HER FRIENDS WILL PICK HIM UP FOR DISCHARGE CM DISCUSSED MEDICAID TRANSPORTATION, PROVIDED PT WITH ADDRESS AND PHONE NUMBER TO THE DEPARTMENT OF HUMAN SERVICES OFFICE IN [facility]. PT STATES THEY WERE NO HELP AND HE CAN PAY $25 PER TRIP FOR MEDICAID BUS BUT HE HAS MEDICAID AND DOES NOT HAVE $25 FOR EACH TRIP TO DIALYSIS. CM DISCUSSED THE POSSIBILITY OF APPLYING FOR GOVERNMENT HOUSING IN [place] AND MOVING TO BE CLOSER TO HIS DIALYSIS UNIT. PT STATES HE "LIVES" IN [place] AND IS NOT MOVING. PT REPORTS HAVING KIDS TO TAKE CARE OF. PT DENIES DISCHARGE NEEDS. PT REPORTS WANTING "SOMETHING FOR PAIN". CM NOTIFIED BEDSIDE NURSE. CM ADVISED BY SENIOR REACTOR OPERATOR THAT SHE CALLED DR. KOEHLER OFFICE IN [place], PT'S REPORTED PRIMARY DOCTOR, THEY WILL NOT SEE HIM AND INFORMED SENIOR REACTOR OPERATOR THAT PT HAD BEEN DISMISSED FROM THE CLINIC. Associate Marketing Manager: Jeff Christopher DCPIA - Discharge Planning Initial Assessment Updated by [email or web address]: Jeff Christopher on 06/22/19 9:53 am * Is the patient Alert and Oriented? Yes * How many steps to enter\\exit or inside your home? NONE * PCP NONE: PT REPORTS DR. VÁZQUEZ; SENIOR REACTOR OPERATOR CALLED DR. KOEHLER' OFFICE WHO ADVISED THAT PT HAD BEEN DISMISSED FROM CLINIC. * Pharmacy [facility] IN [place] * Preadmission Environment Home with Family * ADLs Independent * Equipment Cane * Other Equipment NO MEDICAL EQUIPMENT PROVIDER PREFERENCE * List name and contact numbers for known caregivers / representatives who currently or will assist patient after discharge: PEYTON DAUGHTER, * Verbal permission to speak to the caregivers and representatives has been obtained from the patient. N/A * Community resources currently utilized Other * Please name any agencies selected above. [facility] DIALYS[facility], [facility], [facility]; PT REPORTS HE HAS MEDICAID TRANSPORT BUT HAS TO PAY $25 PER TRIP. * Additional services required to return to the preadmission environment? No * Can the patient safely return to the preadmission environment? Yes * Has this patient been hospitalized within the prior 30 days at any hospital? Yes Last DP export: 06/22/19 8:59 a Patient Name: ODETTE OH Page 79351 at 1007 All edits/amendments must be made on the electronic document DICTATION DATE: 06/22/19 1006 CHEMICAL MILLING PROCESSOR: [facility] 06/22/19 1006 RPT#: [id number] DC DATE: STATUS: ADM IN [facility] [address] [facility] [place] [address] END OF REPORT
[2019-06-22 11:45] LABS: CALCIUM 7.3 mg/dL (8.5-10.1); CARBON DIOXIDE 25.5 mmol/L (21.0-32.0); MAGNESIUM - SERUM 2.2 mg/dL (1.8-2.4)
[2019-06-22 11:47] LABS: BASOPHILS 0 % (0-2); CREATININE - SERUM 8.7 mg/dL (0.6-1.3); EOSINOPHILS 0 % (0-7); HEMATOCRIT 29.5 % (42.0-54.0); HEMOGLOBIN 9.2 g/dL (13.5-17.5); IMMATURE GRANULOCYTES 0.8 % (0-5); LYMPHOCYTES 17.6 % (15-50); MCHC 31.2 g/dL (31.0-37.0); MEAN PLATELET VOLUME 9.6 fL (7.4-10.4); NEUTROPHILS 71.6 % (40-80); PHOSPHOROUS 6.5 mg/dL (2.5-4.9); POTASSIUM - SERUM 4.5 mmol/L (3.5-5.1); RBC 3.07 10x6/uL (4.20-6.10); RDW 19.5 % (11.5-14.5)
[2019-06-22 11:48] LABS: MCV 96.1 fL (80.0-100.0); PLATELET COUNT 121 10x3/uL (130-400)
--- NOTE | 2019-06-22 16:15 | NUR ---
DISCHARGE INSTRUCTIONS REVIEWED WITH PT AND VERBALIZES UNDERSTANDING WITH NO QUESTIONS. LEFT FLOOR VIA W/C WITH ALL PERSONAL BELONGINGS AND LEFT FACILITY VIA PRIVATE VEHICLE WITH FAMILY MEMBER.
--- NOTE | 2019-06-23 15:50 | MORECARE ---
CASE MANAGEMENT DISCHARGE SUMMARY PATIENT: ODETTE OH UNIT: [id number] ADM DATE: 06/20/19 AGE: 58 : 64 SEX: M ROOM/BED: D.1393 AUTHOR: MARU,DOC PHYSICIAN: REFERRING PHYSICIAN: ZAHRA THORNTON MD DATE OF SERVICE: 06/23/19 Discharge Plan Patient Name: ODETTE OH Facility: [facility]:[place] : 1960 Planned Disposition: Home Anticipated Discharge Date: 06/22/19 Discharge Date: 06/22/2019 Expected LOS: 2 Initial Reviewer: [email or web address] Initial Review Date: 06/20/2019 Generated: 06/23/19 4:50 pm Comments DCP- Discharge Planning Updated by [id number]: Jeff Christopher on 06/22/19 9:[address] Patient Name: ODETTE OH Admission Status: ER Accout number: [id number] Admission Date: 06-20-2019 : 1960 Admission Diagnosis: Attending: ZAHRA THORNTON Current LOS: 2 Anticipated DC Date: 06-22-2019 Planned Disposition: Home Primary Insurance: MEDICAID [place] Discharge Planning Comments: CM RECEIVED ORDER FOR PT WITH MULTIPLE READMISSIONS, NO TRANSPORTATION TO DIALYSIS. CM MET WITH PT IN ROOM TO DISCUSS DISCHARGE PLANNING AND NEEDS. PT REPORTS LIVING AT HOME INDEPENDENTLY WITH HIS AUNT WHO IS ELDERLY AND DISABLED. PT HAS A CANE WITH NO MEDICAL EQUIPMENT PROVIDER PREFERENCE. PT HAS NO OUTSIDE SERVICES ASSISTING IN THE HOME. CM DISCUSSED AVAILABILITY OF HOME HEALTH, REHAB SERVICES AND MEDICAL EQUIPMENT. PT DENIES DISCHARGE NEEDS, REPORTS HIS DAUGHTER OR ONE OF HER FRIENDS WILL PICK HIM UP FOR DISCHARGE CM DISCUSSED MEDICAID TRANSPORTATION, PROVIDED PT WITH ADDRESS AND PHONE NUMBER TO THE DEPARTMENT OF HUMAN SERVICES OFFICE IN [facility]. PT STATES THEY WERE NO HELP AND HE CAN PAY $25 PER TRIP FOR MEDICAID BUS BUT HE HAS MEDICAID AND DOES NOT HAVE $25 FOR EACH TRIP TO DIALYSIS. CM DISCUSSED THE POSSIBILITY OF APPLYING FOR GOVERNMENT HOUSING IN [place] AND MOVING TO BE CLOSER TO HIS DIALYSIS UNIT. PT STATES HE "LIVES" IN [place] AND IS NOT MOVING. PT REPORTS HAVING KIDS TO TAKE CARE OF. PT DENIES DISCHARGE NEEDS. PT REPORTS WANTING "SOMETHING FOR PAIN". CM NOTIFIED BEDSIDE NURSE. CM ADVISED BY GRINDING MACHINE OPERATOR PORTABLE THAT SHE CALLED DR. KOEHLER OFFICE IN [place], PT'S REPORTED PRIMARY DOCTOR, THEY WILL NOT SEE HIM AND INFORMED GRINDING MACHINE OPERATOR PORTABLE THAT PT HAD BEEN DISMISSED FROM THE CLINIC. Dry Cell Assembly Machine Tender: Jeff Christopher DCPIA - Discharge Planning Initial Assessment Updated by [id number]: Jeff Christopher on 06/22/19 9:53 am * Is the patient Alert and Oriented? Yes * How many steps to enter\\exit or inside your home? NONE * PCP NONE: PT REPORTS DR. VÁZQUEZ; GRINDING MACHINE OPERATOR PORTABLE CALLED DR. KOEHLER' OFFICE WHO ADVISED THAT PT HAD BEEN DISMISSED FROM CLINIC. * Pharmacy [facility] IN [place] * Preadmission Environment Home with Family * ADLs Independent * Equipment Cane * Other Equipment NO MEDICAL EQUIPMENT PROVIDER PREFERENCE * List name and contact numbers for known caregivers / representatives who currently or will assist patient after discharge: PEYTON DAUGHTER, * Verbal permission to speak to the caregivers and representatives has been obtained from the patient. N/A * Community resources currently utilized Other * Please name any agencies selected above. OUTPATIENT DIALYSIS, [facility], [facility]; PT REPORTS HE HAS MEDICAID TRANSPORT BUT HAS TO PAY $25 PER TRIP. * Additional services required to return to the preadmission environment? No * Can the patient safely return to the preadmission environment? Yes * Has this patient been hospitalized within the prior 30 days at any hospital? Yes Last DP export: 06/22/19 9:07 a Patient Name: ODETTE OH Page [id number] at 1550 All edits/amendments must be made on the electronic document DICTATION DATE: 06/23/19 1550 SECURITY BUSINESS ANALYST: [facility] 06/23/19 1550 RPT#: [id number] DC DATE:06/22/19 STATUS: DIS IN [facility] [address] [place] [address] END OF REPORT
== END 2019-06-22 17:10 | disposition home or self-care (01) | DRG 291 ==
LOC: D.ER 12:25 → D.M2 16:51
PROVIDERS: Emergency Medicine; ADMIT Internal Medicine Nephrology; ATTEND Internal Medicine Nephrology
PROC: 5A1D70Z Performance of Urinary Filtration, Intermittent, Less than 6 Hours Per Day (ICD-10-PCS; principal; 2019-06-21)
DX: I13.2 Hypertensive heart and chronic kidney disease with heart failure and with stage 5 chronic kidney disease, or end stage renal disease (principal); N18.6 End stage renal disease; I50.33 Acute on chronic diastolic (congestive) heart failure; F17.213 Nicotine dependence, cigarettes, with withdrawal; E87.5 Hyperkalemia; E83.41 Hypermagnesemia; I16.0 Hypertensive urgency; Z99.2 Dependence on renal dialysis; Z91.15 Patient's noncompliance with renal dialysis; D63.1 Anemia in chronic kidney disease; K21.9 Gastro-esophageal reflux disease without esophagitis; F14.10 Cocaine abuse, uncomplicated

== ENCOUNTER 2019-06-24 22:36 | Inpatient (IN) | payer MEDICAID ==
[~2019-06-24] VITALS: Ht 177.8 cm; Wt 74.1 kg
[2019-06-24 23:37] LABS: HEMOGLOBIN 9.8 g/dL (13.5-17.5); MCH 29.7 pg (26.0-34.0); MCHC 31.6 g/dL (31.0-37.0); MCV 93.9 fL (80.0-100.0); MEAN PLATELET VOLUME 9.6 fL (7.4-10.4); NEUTROPHILS 74.5 % (40-80); PLATELET COUNT 103 10x3/uL (130-400); WBC 8.3 10x3/uL (4.8-10.8)
[2019-06-24 23:50] LABS: APTT 32.7 SECONDS (22.8-39.4); INR 1.18 (0.85-1.17); PROTIME 14.5 SECONDS (11.6-15.0)
[2019-06-24 23:53] LABS: CALC OSMOLALITY 301 mosm/kg (275-300); CALCIUM 7.5 mg/dL (8.5-10.1); CARBON DIOXIDE 24.7 mmol/L (21.0-32.0); CHLORIDE - SERUM 104 mmol/L (98-107); CREATININE - SERUM 9.4 mg/dL (0.6-1.3); GLUCOSE 99 mg/dL (74-106); POTASSIUM - SERUM 4.6 mmol/L (3.5-5.1); SODIUM 142 mmol/L (136-145); UREA NITROGEN 65 mg/dL (7-18); eGFR NON AFRICAN AMERICAN 6 mL/min (90-120)
[2019-06-24 23:57] VITALS: BP 198/112
[2019-06-25] VITALS (8 sets, daily range): BP systolic 139–205; BP diastolic 80–112; Ht 177.8 cm; Wt 74.1 kg
[2019-06-25 00:17] LABS: ALKALINE PHOSPHATASE 87 U/L (46-116); ALT (SGPT) 20 U/L (10-68); BILIRUBIN - TOTAL 0.59 mg/dL (0.2-1.3); CKMB 2.2 U/L (0.0-3.6); CREATINE KINASE 126 UL (21-232); PROTEIN - SERUM 8.3 g/dL (6.4-8.2)
[2019-06-25 00:18] LABS: TROPONIN-I 0.269 ng/mL (0.000-0.060)
[2019-06-25 00:43] LABS: PRO BNP 124399 pg/mL (0-125)
--- NOTE | 2019-06-25 00:49 | NUR ---
LAB UNABLE TO OBTAIN SECONDS BLOOD CULTURE. ADVISED EDFloresita CUELLAR. ADOLPH TO START ABX.
--- NOTE | 2019-06-25 01:50 | NUR ---
RECIEVED TO ROOM ALERT AND ORIENTIATED, REPORTS GENERALIZED PAIN, BP ELEVATED STATES HAS NOT TAKEN ANY HOME MEDS SINCE WENT HOME FROM HOSPITAL ON TUESDAY AFTER DIALYSIS, SEE ASSESSMENT,CALL RENETTA BATES
--- NOTE | 2019-06-25 02:13 | NUR ---
LABETOL 100MG GIVEN ORDERED AT THIS TIME DUE TO BP REMAINING 182/109, APRESOLINE NOT GIVEN AT THIS TIME WILL MONITOR BP, PT RECIEVED BOTH IV IN ER PRIOR TO TRANSFER TO FLOOR DISCUSSED WITH NEELA NICHOLS RN.
--- NOTE | 2019-06-25 11:23 | NUR ---
[facility] THAT WERE SENT DOWN WITH PT AND CALLED LAB TO MANAGER CONTENT.
[2019-06-25 12:40] LABS: APPEARANCE HAZY (CLEAR); BACTERIA FEW /hpf (NEGATIVE); BILIRUBIN NEGATIVE (NEGATIVE); COLOR DK YELLOW (YELLOW); EPITHELIAL CELLS 0-5 /hpf (0-5); GLUCOSE 100 mg/dL (NEGATIVE); KETONE NEGATIVE (NEGATIVE); NITRITE NEGATIVE (NEGATIVE); PROTEIN 2+ mg/dL (NEGATIVE); SPECIFIC GRAVITY 1.005 (1.005-1.020); UROBILINOGEN NORMAL (NORMAL); WHITE CELLS - URINE 0-5 /hpf (NEGATIVE)
[2019-06-25 13:30] LABS: CKMB 2.5 U/L (0.0-3.6); CREATINE KINASE 117 UL (21-232)
--- NOTE | 2019-06-25 19:15 | NUR ---
EVENING ROUNDS COMPLETE. PT LAYING IN BED. NO SIGNS OF DISTRESS. AAOX4. PT DENIES ANY NEEDS AT THIS TIME. CL IN REACH, BED IN LOWEST POSITION.
[2019-06-26 00:30] VITALS: BP 140/88
[2019-06-26 04:00] VITALS: BP 142/87
[2019-06-26 06:32] LABS: BASOPHILS 0.1 % (0-2); EOSINOPHILS 0 % (0-7); HEMATOCRIT 29.7 % (42.0-54.0); HEMOGLOBIN 9.3 g/dL (13.5-17.5); IMMATURE GRANULOCYTES 0.3 % (0-5); LYMPHOCYTES 17.6 % (15-50); MCH 29.9 pg (26.0-34.0); MCHC 31.3 g/dL (31.0-37.0); MCV 95.5 fL (80.0-100.0); MEAN PLATELET VOLUME 10.4 fL (7.4-10.4); MONOCYTES 10.5 % (2-11); NEUTROPHILS 71.5 % (40-80); PLATELET COUNT 109 10x3/uL (130-400); RBC 3.11 10x6/uL (4.20-6.10); RDW 18.9 % (11.5-14.5); WBC 7.4 10x3/uL (4.8-10.8)
[2019-06-26 06:38] LABS: ANION GAP 16.8 mmol/L (8-16); CALCIUM 7.7 mg/dL (8.5-10.1); CREATININE - SERUM 6.8 mg/dL (0.6-1.3); POTASSIUM - SERUM 4.8 mmol/L (3.5-5.1)
--- NOTE | 2019-06-26 07:00 | NUR ---
RECEIVED REPORT. ASSUMED CARE OF PATIENT. CALL LIGHT WITHIN REACH. PATIENT SITTING UP IN BED RECEIVING NEBULIZER TX. PATIENT HAS NO COMPLAINTS AT THIS TIME. DENIES NEEDS. DR. METZGER HERE FOR AM ROUNDS.
--- NOTE | 2019-06-26 08:46 | MORECARE ---
CASE MANAGEMENT DISCHARGE SUMMARY PATIENT: ODETTE OH UNIT: [id number] ADM DATE: 06/25/19 AGE: 58 : 64 SEX: M ROOM/BED: D.2107 AUTHOR: ETHAN MAHONEY PHYSICIAN: REFERRING PHYSICIAN: JAYDE METZGER MD DATE OF SERVICE: 06/26/19 Discharge Plan Patient Name: ODETTE OH [facility] [facility] 1960 Planned Disposition: Home Anticipated Discharge Date: 06/26/19 Discharge Date: Expected LOS: 1 Initial Reviewer: [email or web address] Initial Review Date: 06/26/2019 Generated: 06/26/19 9:45 am DCPIA - Discharge Planning Initial Assessment Updated by [email or web address]: Jeff Christopher on 06/26/19 8:45 am * Is the patient Alert and Oriented? Yes * How many steps to enter\exit or inside your home? NONE * PCP NO PRIMARY DOCTOR * Pharmacy [facility] IN [place] * Preadmission Environment Home with Family * ADLs Independent * Equipment Cane * Other Equipment NO MEDICAL EQUIPMENT PROVIDER PREFERENCE * Verbal permission to speak to the caregivers and representatives has been obtained from the patient. No * Community resources currently utilized Other * Please name any agencies selected above. OUTPATIENT DIALYSIS, [facility] [place] IN EMERGENCY ROOM * Additional services required to return to the preadmission environment? No * Can the patient safely return to the preadmission environment? Yes * Has this patient been hospitalized within the prior 30 days at any hospital? Yes Patient Name: ODETTE OH Page [phone] at 0846 All edits/amendments must be made on the electronic document DICTATION DATE: 06/26/19844 BUSINESS APPLICATIONS ANALYST: LUH 06/26/19844 RPT#: [id number] DC DATE: STATUS: ADM IN [facility] [address] [facility] [place] [address] END OF REPORT
[2019-06-26 08:51] VITALS: BP 146/89
--- NOTE | 2019-06-26 08:56 | NUR ---
MEDICATED FOR PAIN AT THIS TIME. PATIENT TOOK ALL SCHEDULED MEDICATIONS AND IS REFUSING DIALYSIS THIS AM. PATIENT HAS CALLED HIS DAUGHTER AND LEFT A MESSAGE TO COME AND GET HIM HE NEEDS A RIDE HOME TO [place] TODAY BECAUSE HE IS BEING DISCHARGED PER DR.MC NG.
--- NOTE | 2019-06-26 09:04 | MORECARE ---
CASE MANAGEMENT DISCHARGE SUMMARY PATIENT: ODETTE OH UNIT: [id number] ADM DATE: 06/25/19 AGE: 58 : 64 SEX: M ROOM/BED: D.2101 AUTHOR: MARU,DOC PHYSICIAN: REFERRING PHYSICIAN: JAYDE METZGER MD DATE OF SERVICE: 06/26/19 Discharge Plan Patient Name: ODETTE OH Facility: [facility]:[place] : 1960 Planned Disposition: Home Anticipated Discharge Date: 06/26/19 Discharge Date: Expected LOS: 1 Initial Reviewer: [email or web address] Initial Review Date: 06/26/2019 Generated: 06/26/19 10:04 am Comments DCP- Discharge Planning Updated by [id number]: Jeff Christopher on 06/26/19 8:[address] Patient Name: ODETTE OH Admission Status: ER Accout number: [id number] Admission Date: 06-25-2019 : 1960 Admission Diagnosis: Attending: JAYDE METZGER Current LOS: 1 Anticipated DC Date: 06-26-2019 Planned Disposition: Home Primary Insurance: MEDICAID [place] Discharge Planning Comments: CM MET WITH PT IN ROOM TO ASSESS DISCHARGE NEEDS AND PLANNING, NOTIFIED PT OF DISCHARGE ORDER FOR AFTER DIALYSIS TODAY. PT STATES HE HAS TO GO TO DIALYSIS TOMORROW ANYWAY AND DOES NOT WANT TO DO DIALYSIS TODAY. CM STARTED TO EXPLAIN THAT IF PT WAS NOT GOING TO STAY FOR DIALYSIS TODAY... PT STATES THAT HE WANTS TO STAY TONIGHT AND GO TO DIALYSIS TOMORROW. CM EXPLAINED THAT THE DOCTOR HAS DISCHARGED PT TODAY AND THAT PT IS MEDICALLY STABLE TO LEAVE TODAY. PT BEGAN SPEAKING VERY LOUDLY, STATING DR. METZGER DIDN'T EVEN LOOK AT HIM AND HE HAS PNEUMONIA. CM CONFIRMED THAT THE EMERGENCY ROOM DOCTOR CHARGED THAT PT DID HAVE PNEUMONIA UPON ARRIVAL AND THAT PT HAS BEEN TREATED FOR THIS AND DR. METZGER IS IN CHARGE OF PT'S CARE IN THE HOSPITAL AFTER ADMISSION, NOT THE EMERGENCY ROOM DOCTOR. PT STATES HE IS NOT IN THE MOOD FOR THIS "SHIT". BEDSIDE NURSE ENTERED THE ROOM. PT STATES HE IS NOT HAPPY WITH DR. METZGER, CM SUGESSTED THAT IF PT IS UNHAPPY WITH THE DOCTOR YASSINE HE MAY LOOK FOR ANOTHER DOCTOR, POINTING OUT THAT PT NO LONGER HAS PRIMARY CARE IN [place]. PT TALKING LOUDLY OVER CM STATING HE WAS NOT LEAVING AND IS NOT GOING TO DIALYSIS TODAY. CM OFFERED TO CALL FAMILY TO HELP ARRANGE TRANPORTATION. PT STATES THAT CM HAS NEVER HELPED HIM AND HE DOES NOT NEED CM'S HELP NOW. CM EXPLAINED THAT CM HAS HELPED BY ARRANGING [facility] TRANSPORT TO THE [facility] IN [place] TO ASSIST PT WITH GETTING THERE TO CHANGE HIS ADDRESS TO ENABLE HIM TO HAVE MEDICAID TRANSPORTATION ACCESS. PT STATES THAT IS SOME "SHIT" AND THAT CM HAS NEVER HELPED. PT INSTRUCTED CM VERY LOUDLY TO LEAVE HIS ROOM. CM TOLD PT NO, THAT CM HAS TO GIVE PT THE NUMBER TO CALL CM IF HE CHANGES HIS MIND AND NEEDS ASSISTANCE IN CALLING FAMILY; CM ADVISED PT IT IS VERY COLD AND BELOW FREEZING OUTSIDE AND IT IS NOT A GOOD DAY TO BE SITTING OUTSIDE THE HOSPTIAL WAITING FOR RIDE. PT STATES HE IS NOT SITTING OUT FRONT AND FOR CM TO "GET OUT". CM COMPLETED WRITING CM CONTACT NUMBER ON BOARD, INSTRUCTED PT THAT HE CAN CALL CM IF HE NEEDS ANY ASSISTANCE IN MAKING CALLS TO FIND TRANSPORTATION HOME. CM NOTIFIED FLOW COORINATOR NURSE THAT PT IS REFUSING DIALYSIS, DOES NOT WANT TO LEAVE THE HOSPITAL AND REFUSED CM ASSISTANCE. BEDSIDE NURSE INFORMED CM THAT SHE CALLED [facility] MANUFACTURERS AGENT FOR FURTHER INSTRUCTIONS; PT HAS BEEN DISCHARGED AND IF REFUSING DIALYSIS, HE CAN LEAVE AND IF REFUSING TO LEAVE, CALL HOSPITAL SECURITY. PT REFUSED ASSESSMENT, REFUSED CM ASSISTANCE TO CALL FOR RIDE HOME. PT REFUSING DIALYSIS TODAY. PT STATES HE IS NOT LEAVING HE HOSPITAL TODAY. CM TO FOLLOW AND ASSIST IF ABLE. Refrigerated Cargo Clerk: Jeff Christopher DCPIA - Discharge Planning Initial Assessment Updated by [id number]: Jeff Christopher on 06/26/19 8:45 am * Is the patient Alert and Oriented? Yes * How many steps to enter\\exit or inside your home? NONE * PCP NO PRIMARY DOCTOR * Pharmacy [facility] IN [place] * Preadmission Environment Home with Family * ADLs Independent * Equipment Cane * Other Equipment NO MEDICAL EQUIPMENT PROVIDER PREFERENCE * Verbal permission to speak to the caregivers and representatives has been obtained from the patient. No * Community resources currently utilized Other * Please name any agencies selected above. OUTPATIENT DIALYSIS, [facility] IN EMERGENCY ROOM * Additional services required to return to the preadmission environment? No * Can the patient safely return to the preadmission environment? Yes * Has this patient been hospitalized within the prior 30 days at any hospital? Yes Last DP export: 06/26/19 7:45 Patient Name: ODETTE OH Page [phone] at 0904 All edits/amendments must be made on the electronic document DICTATION DATE: 06/26/19903 SAW MAKER: LUH 06/26/19903 RPT#: [id number] DC DATE: STATUS: ADM IN [facility] [address] [place] [address] END OF REPORT
--- NOTE | 2019-06-26 11:06 | NUR ---
20 GAUGE IV REMOVED FROM RIGHT FOREARM. CATHETER TIP INTACT. NO BLEEDING FROM STIE. 2X2 GAUZE APPLIED AND SECURED WITH BANDAID. TOLERATED IV REMOVAL WELL. DISCHARGE INSTRUCTIONS PROVIDED TO PATIENT. PATIENT VERBALIZED UNDERSTANDING OF ALL INSTRUCTIONS. PATIENT STATES HE IS NOT LEAVING YET, HE IS CALLING HIS DAUGHTER AGAIN.
--- NOTE | 2019-06-26 12:05 | NUR ---
RECEIVED CALL FROM PATIENTS DAUGHTER THAT THE NURSE HAS TO CALL THE [facility] BUS IN ORDER FOR THEM TO PICK THE PATIENT UP. IS THE NUMBER PROVIDED BY THE PATIENTS DAUGHTER. CALL PLACED TO [facility] AT THIS TIME.
--- NOTE | 2019-06-26 12:08 | NUR ---
CALLED AND SPOKE TO THE [facility]SP[facility]. VERIFIED WITH PATIENT THAT HE CAN GET INTO HIS HOME WHEN HE IS TRANSPORTED. PATIENT STATES JUST GET ME HOME AND I CAN GET IN. CONFIRMATION NUMBER [id number]. ESTIMATED TIME OF ARRIVAL VIA [facility] BUS WAS NOT PROVIDED THEY ARE BUSY TODAY.
--- NOTE | 2019-06-26 13:30 | NUR ---
PATIENT LEFT UNIT VIA WHEELCHAIR AT THIS TIME WITH ALL PERSONAL BELONGINGS. MICHELLEN DISCHARGED TO HOME VIA THE [facility] BUS. PATIENT IN NO DISTRESS UPON LEAVING UNIT.
--- NOTE | 2019-06-27 07:55 | MORECARE ---
CASE MANAGEMENT DISCHARGE SUMMARY PATIENT: ODETTE OH UNIT: [id number] ADM DATE: 06/25/19 AGE: 58 : 64 SEX: M ROOM/BED: D.9497 AUTHOR: MARU,DOC PHYSICIAN: REFERRING PHYSICIAN: JAYDE METZGER MD DATE OF SERVICE: 06/27/19 Discharge Plan Patient Name: ODETTE OH Facility: [facility]:[place] : 1960 Planned Disposition: Home Anticipated Discharge Date: 06/26/19 Discharge Date: 06/26/2019 Expected LOS: 1 Initial Reviewer: [email or web address] Initial Review Date: 06/26/2019 Generated: 06/27/19 8:55 am Comments DCP- Discharge Planning Updated by [email or web address]: Jeff Christopher on 06/26/19 8:[address] Patient Name: ODETTE OH Admission Status: ER Accout number: [id number] Admission Date: 06-25-2019 : 1960 Admission Diagnosis: Attending: JAYDE METZGER Current LOS: 1 Anticipated DC Date: 06-26-2019 Planned Disposition: Home Primary Insurance: MEDICAID [place] Discharge Planning Comments: CM MET WITH PT IN ROOM TO ASSESS DISCHARGE NEEDS AND PLANNING, NOTIFIED PT OF DISCHARGE ORDER FOR AFTER DIALYSIS TODAY. PT STATES HE HAS TO GO TO DIALYSIS TOMORROW ANYWAY AND DOES NOT WANT TO DO DIALYSIS TODAY. CM STARTED TO EXPLAIN THAT IF PT WAS NOT GOING TO STAY FOR DIALYSIS TODAY... PT STATES THAT HE WANTS TO STAY TONIGHT AND GO TO DIALYSIS TOMORROW. CM EXPLAINED THAT THE DOCTOR HAS DISCHARGED PT TODAY AND THAT PT IS MEDICALLY STABLE TO LEAVE TODAY. PT BEGAN SPEAKING VERY LOUDLY, STATING DR. METZGER DIDN'T EVEN LOOK AT HIM AND HE HAS PNEUMONIA. CM CONFIRMED THAT THE EMERGENCY ROOM DOCTOR CHARGED THAT PT DID HAVE PNEUMONIA UPON ARRIVAL AND THAT PT HAS BEEN TREATED FOR THIS AND DR. METZGER IS IN CHARGE OF PT'S CARE IN THE HOSPITAL AFTER ADMISSION, NOT THE EMERGENCY ROOM DOCTOR. PT STATES HE IS NOT IN THE MOOD FOR THIS "SHIT". BEDSIDE NURSE ENTERED THE ROOM. PT STATES HE IS NOT HAPPY WITH DR. METZGER, CM SUGESSTED THAT IF PT IS UNHAPPY WITH THE DOCTOR YASSINE HE MAY LOOK FOR ANOTHER DOCTOR, POINTING OUT THAT PT NO LONGER HAS PRIMARY CARE IN [place]. PT TALKING LOUDLY OVER CM STATING HE WAS NOT LEAVING AND IS NOT GOING TO DIALYSIS TODAY. CM OFFERED TO CALL FAMILY TO HELP ARRANGE TRANPORTATION. PT STATES THAT CM HAS NEVER HELPED HIM AND HE DOES NOT NEED CM'S HELP NOW. CM EXPLAINED THAT CM HAS HELPED BY ARRANGING [facility] TRANSPORT TO THE [facility] OF [facility] SERVICES IN [place] TO ASSIST PT WITH GETTING THERE TO CHANGE HIS ADDRESS TO ENABLE HIM TO HAVE MEDICAID TRANSPORTATION ACCESS. PT STATES THAT IS SOME "SHIT" AND THAT CM HAS NEVER HELPED. PT INSTRUCTED CM VERY LOUDLY TO LEAVE HIS ROOM. CM TOLD PT NO, THAT CM HAS TO GIVE PT THE NUMBER TO CALL CM IF HE CHANGES HIS MIND AND NEEDS ASSISTANCE IN CALLING FAMILY; CM ADVISED PT IT IS VERY COLD AND BELOW FREEZING OUTSIDE AND IT IS NOT A GOOD DAY TO BE SITTING OUTSIDE THE HOSPTIAL WAITING FOR RIDE. PT STATES HE IS NOT SITTING OUT FRONT AND FOR CM TO "GET OUT". CM COMPLETED WRITING CM CONTACT NUMBER ON BOARD, INSTRUCTED PT THAT HE CAN CALL CM IF HE NEEDS ANY ASSISTANCE IN MAKING CALLS TO FIND TRANSPORTATION HOME. CM NOTIFIED FLOW COORINATOR NURSE THAT PT IS REFUSING DIALYSIS, DOES NOT WANT TO LEAVE THE HOSPITAL AND REFUSED CM ASSISTANCE. BEDSIDE NURSE INFORMED CM THAT SHE CALLED [facility] ER RN FOR FURTHER INSTRUCTIONS; PT HAS BEEN DISCHARGED AND IF REFUSING DIALYSIS, HE CAN LEAVE AND IF REFUSING TO LEAVE, CALL HOSPITAL SECURITY. PT REFUSED ASSESSMENT, REFUSED CM ASSISTANCE TO CALL FOR RIDE HOME. PT REFUSING DIALYSIS TODAY. PT STATES HE IS NOT LEAVING HE HOSPITAL TODAY. CM TO FOLLOW AND ASSIST IF ABLE. Animation Producer: Jeff Christopher DCPIA - Discharge Planning Initial Assessment Updated by [id number]: Jeff Christopher on 06/26/19 8:45 am * Is the patient Alert and Oriented? Yes * How many steps to enter\\exit or inside your home? NONE * PCP NO PRIMARY DOCTOR * Pharmacy [facility] IN [place] * Preadmission Environment Home with Family * ADLs Independent * Equipment Cane * Other Equipment NO MEDICAL EQUIPMENT PROVIDER PREFERENCE * Verbal permission to speak to the caregivers and representatives has been obtained from the patient. No * Community resources currently utilized Other * Please name any agencies selected above. OUTPATIENT DIALYSIS, [facility] IN EMERGENCY ROOM * Additional services required to return to the preadmission environment? No * Can the patient safely return to the preadmission environment? Yes * Has this patient been hospitalized within the prior 30 days at any hospital? Yes Last DP export: 06/26/19 8:04 Patient Name: ODETTE OH Page [id number] at 0755 All edits/amendments must be made on the electronic document DICTATION DATE: 06/27/19754 STARCH AND PROSIZE MIXER: LUH 06/27/19 0755 RPT#: [id number] DC DATE:06/26/19 STATUS: DIS IN [facility] [address] [place] [address] END OF REPORT
--- NOTE | 2019-07-05 06:52 | DS ---
PATIENT:ODETTE OH :[birth year] MEDICAL RECORD: [id number] DISCHARGE SUMMARY ADMISSION DATE: 06/25/19 DISCHARGE DATE: 06/26/19 Mr. Oh is a 58-year-old black male with end-stage renal disease, on intermittent hemodialysis. He has a chronic drug usage and sells drugs on a regular basis, both in and out of the dialysis unit. He has been declined for chronic admission to multiple dialysis units due to his chronic noncompliant behavior as well as his drug seeking and abusing behavior. He is readmitted again with shortness of breath, having had a prolonged period without dialysis. HOSPITAL COURSE: The patient underwent dialysis and improved considerably. He did not wish to pursue a fci placement and requested discharge. He will be discharged today after his second dialysis. His lab and meds are stable. DISCHARGE DIAGNOSES: 1. End-stage renal disease. 2. Chronic drug abuse and drug seeking and selling behavior. 3. Hypertension. 4. Severe noncompliance. PLAN: The patient will be discharged today. He will resume his home medications. He will return on a p.r.n. basis for his dialysis. He declines fci placement. TRANSINT:[id number] Voice Confirmation ID: [id number] DOCUMENT ID: [id number] JAYDE METZGER MD at 0652 CC: [id number] DICTATION DATE: 06/26/19 07 DATA CENTER CONSULTANT: 06/26/19 0734 DIS IN 06/26/19 [facility] [address] [place] [address]
== END 2019-06-26 13:38 | disposition home or self-care (01) | DRG 193 ==
LOC: D.ER 22:36 → D.M2 06-25 00:09
PROVIDERS: Emergency Medicine; ADMIT Internal Medicine Nephrology; ATTEND Internal Medicine Nephrology
PROC: 5A1D70Z Performance of Urinary Filtration, Intermittent, Less than 6 Hours Per Day (ICD-10-PCS; principal; 2019-06-25)
DX: J18.1 Lobar pneumonia, unspecified organism (principal); N18.6 End stage renal disease; I13.2 Hypertensive heart and chronic kidney disease with heart failure and with stage 5 chronic kidney disease, or end stage renal disease; Z99.2 Dependence on renal dialysis; D63.1 Anemia in chronic kidney disease; E87.5 Hyperkalemia; E83.39 Other disorders of phosphorus metabolism; I50.9 Heart failure, unspecified; F19.10 Other psychoactive substance abuse, uncomplicated; Z76.5 Malingerer [conscious simulation]; Z91.15 Patient's noncompliance with renal dialysis; Z72.0 Tobacco use

== ENCOUNTER 2019-06-29 13:08 | Emergency (ER) | payer MEDICAID ==
[~2019-06-29] VITALS: Ht 177.8 cm; Wt 74.1 kg
[2019-06-29 13:12] VITALS: Ht 177.8 cm; Wt 74.1 kg
[2019-06-29 16:51] LABS: BASOPHILS 0 % (0-2); EOSINOPHILS 0.1 % (0-7); HEMATOCRIT 28.1 % (42.0-54.0); HEMOGLOBIN 9.3 g/dL (13.5-17.5); IMMATURE GRANULOCYTES 0.3 % (0-5); LYMPHOCYTES 14.2 % (15-50); MCHC 33.1 g/dL (31.0-37.0); MCV 93.7 fL (80.0-100.0); MONOCYTES 7.8 % (2-11); NEUTROPHILS 77.6 % (40-80); PLATELET COUNT 124 10x3/uL (130-400); RDW 18.1 % (11.5-14.5); WBC 7.7 10x3/uL (4.8-10.8)
[2019-06-29 17:08] LABS: ALBUMIN 3.1 g/dL (3.4-5.0); ANION GAP 25.3 mmol/L (8-16); BILIRUBIN - TOTAL 0.78 mg/dL (0.2-1.3); CALCIUM 7.4 mg/dL (8.5-10.1); CARBON DIOXIDE 20.8 mmol/L (21.0-32.0); CREATININE - SERUM 11.6 mg/dL (0.6-1.3); MAGNESIUM - SERUM 2.5 mg/dL (1.8-2.4); PROTEIN - SERUM 8.2 g/dL (6.4-8.2)
[2019-06-29 17:14] LABS: POTASSIUM - SERUM 7.1 mmol/L (3.5-5.1)
[2019-06-29 22:40] VITALS: BP 180/100
== END 2019-06-29 22:40 | disposition home or self-care (01) ==
LOC: D.ER 13:08
PROVIDERS: Family Medicine
DX: I13.2 Hypertensive heart and chronic kidney disease with heart failure and with stage 5 chronic kidney disease, or end stage renal disease (principal); N18.6 End stage renal disease; Z99.2 Dependence on renal dialysis; Z91.15 Patient's noncompliance with renal dialysis; Z72.0 Tobacco use; I50.9 Heart failure, unspecified; R06.02 Shortness of breath; F14.10 Cocaine abuse, uncomplicated

== ENCOUNTER 2019-07-05 13:16 | Emergency (ER) | payer MEDICAID ==
[~2019-07-05] VITALS: Ht 177.8 cm; Wt 74.1 kg
[2019-07-05 13:16] VITALS: Ht 177.8 cm; Wt 74.1 kg
[2019-07-05 14:20] LABS: INR 1.31 (0.85-1.17); PROTIME 15.7 SECONDS (11.6-15.0)
[2019-07-05 14:21] LABS: APTT 37.9 SECONDS (22.8-39.4)
[2019-07-05 14:22] LABS: BASOPHILS 0.2 % (0-2); EOSINOPHILS 0.2 % (0-7); HEMATOCRIT 27.6 % (42.0-54.0); HEMOGLOBIN 8.9 g/dL (13.5-17.5); IMMATURE GRANULOCYTES 0.4 % (0-5); LYMPHOCYTES 19.7 % (15-50); MCH 30.6 pg (26.0-34.0); MCHC 32.2 g/dL (31.0-37.0); MCV 94.8 fL (80.0-100.0); MEAN PLATELET VOLUME 10.7 fL (7.4-10.4); MONOCYTES 7.9 % (2-11); NEUTROPHILS 71.6 % (40-80); RBC 2.91 10x6/uL (4.20-6.10); WBC 5.4 10x3/uL (4.8-10.8)
[2019-07-05 14:25] LABS: PLATELET COUNT 152 10x3/uL (130-400)
[2019-07-05 14:40] LABS: ALBUMIN 3.2 g/dL (3.4-5.0); ALKALINE PHOSPHATASE 100 U/L (46-116); ALT (SGPT) 20 U/L (10-68); BILIRUBIN - TOTAL 0.61 mg/dL (0.2-1.3); CALC OSMOLALITY 320 mosm/kg (275-300); CALCIUM 8.3 mg/dL (8.5-10.1); CARBON DIOXIDE 19.3 mmol/L (21.0-32.0); CHLORIDE - SERUM 101 mmol/L (98-107); CKMB 8.3 U/L (0.0-3.6); CREATINE KINASE 187 UL (21-232); CREATININE - SERUM 14.3 mg/dL (0.6-1.3); GLUCOSE 98 mg/dL (74-106); PROTEIN - SERUM 8.5 g/dL (6.4-8.2); SODIUM 139 mmol/L (136-145); UREA NITROGEN 132 mg/dL (7-18); eGFR NON AFRICAN AMERICAN 4 mL/min (90-120)
[2019-07-05 14:55] LABS: POTASSIUM - SERUM 7.1 mmol/L (3.5-5.1); PRO BNP 139546 pg/mL (0-125); TROPONIN-I 0.244 ng/mL (0.000-0.060)
[2019-07-05 23:30] VITALS: BP 184/104
== END 2019-07-05 23:30 | disposition home or self-care (01) ==
LOC: D.ER 13:16
PROVIDERS: Emergency Medicine
DX: I12.0 Hypertensive chronic kidney disease with stage 5 chronic kidney disease or end stage renal disease (principal); N18.6 End stage renal disease; Z99.2 Dependence on renal dialysis; Z91.15 Patient's noncompliance with renal dialysis; Z72.0 Tobacco use; D64.9 Anemia, unspecified; E87.5 Hyperkalemia; J81.1 Chronic pulmonary edema; J44.9 Chronic obstructive pulmonary disease, unspecified; I25.2 Old myocardial infarction

== ENCOUNTER 2019-07-09 21:31 | Inpatient (IN) | payer MEDICAID ==
[~2019-07-09] VITALS: Ht 177.8 cm; Wt 70.9 kg
--- NOTE | ~2019-07-09 | HEMODYNAMI ---
PATIENT:ODETTE OH MEDICAL RECORD: [id number] : 64 LOCATION:[facility] D.2133 ADMISSION DATE: 07/10/19 Generatedon:07/11/201914:45 Patient name: ODETTE OH Patient #: [id number] SSN: : Date of study: 07/11/2019 Page: Of Hemodynamic Procedure Report Patient Data Patient Demographics Procedure consent was obtained First Name: ODETTE Gender: Male Last Name: ADRIANO : 1960 Middle Initial: L Age: 58 year(s) Patient #: [id number] Race: Black Additional ID: [id number] Contact details Address: [address] [place] [address] State: [place] City: [place] Zip code: [address] Past Medical History Allergies Allergen Reaction Date Comments Reported Other allergy 12/23/2017 Minoxidil Other allergy 01/20/2018 minoxidil Other allergy 06/26/2018 MINOXIDIL Other allergy 09/21/2018 MINOXIDIL Other allergy 07/11/2019 MINOXIDIL Admission Admission Data Admission Date: 07/10/2019 Admission Time: 15:07 Room #: D.2133 Procedure Procedure Types Cath Procedure Peripheral Cath Diagnostic Procedure Patroller Peripheral Procedures Fistula Fistulagram with Plasty Procedure Description Procedure Date Procedure Date: 07/11/2019 Procedure Start Time: 13:44 Procedure Staff Name Function Erasto Jeffries MD Performing Physician Mindi Zamudio RT Monitor LOVE YEN RT Scrub Mariam Toney RN Nurse Procedure Data Cath Procedure Fluoroscopy Diagnostic fluoroscopy Total fluoroscopy Time: 6.9 time: 6.9 min min Diagnostic fluoroscopy Total fluoroscopy dose: 418 dose: 418 mGy mGy Contrast Material Contrast Material Type Amount (ml) Isovue 300 120 Procedure Medications Medication Administration Route Dosage Heparin Bolus I.V. 4000 units Heparin Flush Bag added to field 2 bags (1000units/500ml NS) Lidocaine 1% added to field 20 Hemodynamics Rest Pre Cath Intra NCS Post Cath Medications Time Medication Route Dose Verified Delivered Reason Notes Effec tiveness by by 13:58:55 Heparin Bolus I.V. 4000 Erasto Becerra used for units Feng Jeffries RN procedure MD 13:59:13 Heparin Flush added 2 Erasto Maurer used for Bag to bags Nesha Jeffries MD procedure (1000units/500ml field GOMEZ NS) 13:59:28 Lidocaine 1% added 20ml Erasto Maurer used for to vial Nesha Jeffries MD procedure field Procedure Log Time Note 13:00:58 Mariam Toney RN sent for patient. Start room use. 13:01:00 Time tracking: Regular hours (M-F 7:00 - 5:00) 13:01:05 Plan of Care:Hemodynamics will remain stable., Cardiac rhythm will remain stable., Comfort level will be maintained., Respiratory function will remain adequate., Patient/ family verbilizes understanding of procedure., Procedure tolerated without complication., Recovers from procedure without complications.. 13:01:15 Patient received from AquaBling II to IR Alert and oriented. Tansferred to table in Supine position. 13:01:19 Signed procedure consent form obtained from patient. 13:01:19 Warm blankets applied, and joe hugger turned on for patient comfort. 13:01:20 Correct patient and procedure confirmed by team. 13:01:20 ECG and BP/O2 sat monitors applied to patient. 13:01:21 - 13:01:31 H&P Date Dictated: 07/11/2019 Within 30 days and on chart.. 13:01:32 Pre-procedure instructions explained to patient. 13:01:33 Pre-op teaching completed and patient verbalized understanding. 13:03:40 Patient NPO since Midnight. 13:08:43 Patient allergic to Other allergyMINOXIDIL 13:08:45 Is the patient allergic to Iodine/contrast media? No. 13:08:47 Is patient on blood thinner?Yes. ASPIRIN last dose 07/10/19 13:09:12 Patient diabetic? No. 13:09:14 - 13:09:16 ----see anethesia note for Pre-sedation anethsthesia assessment.---- 13:09:27 - 13:10:24 IV patent on arrival in right forearm with 0.9% NaCl at KVO. 13:10:33 Left Arm was prepped with chlora-prep and draped in sterile fashion. 13:10:34 Alarms reviewed by Bam Aguirre 13:10:35 Sharps counted by scrub and verified by Anastasia 13:10:36 - 13:11:18 Use device set IR Diagnostic 13:11:20 Bag Decanter (2001S) opened to sterile field. 13:11:20 Sterile Angiographic Pack opened to sterile field. 13:11:21 Tegaderm 4 x 4 (1626W) opened to sterile field. 13:11:51 MICROPUNCTURE 4FR Cook ([id number]) opened to sterile field. 13:11:51 DOC Extension wire (00359) opened to sterile field. 13:11:52 SHEATH 6FR [place] (XPU334) opened to sterile field. 13:17:22 5) <15 or on dialysis Very severe, or end stage kidney failure. 13:42:47 Physician arrived 13:42:47 --------ALL STOP TIME OUT------ 13:42:48 Final Timeout: patient, procedure, and site verified with staff and physician. All members of the team are in agreement. 13:43:36 Fire Safety Assessment: A--An alcohol-based skin anteseptic being used preoperatively., C--Open oxygen or nitrous oxide is being used. 13:44:10 Procedure started. 13:44:11 Full Disclosure recording started 13:44:16 Local anesthetic to left arm with Lidocaine 1% by Erasto Jeffries MD.INITIAL ACCESS ONLY 13:44:33 Venous access obtained using ultrasound guidance. 13:51:12 GLIDE CATHETER 5FR ANGLED 65cm (CG507) opened to sterile field. 13:51:15 GLIDE WIRE ANGLE 180cm (UG6388) opened to sterile field. 13:57:53 GLIDE CATHETER 5FR ANGLED 100cm (CG508) opened to sterile field. 13:57:54 GLIDE WIRE ANGLE 260cm (PE8550) opened to sterile field. 13:58:07 PEDRAZA 260 wire (Y39302) opened to sterile field. 13:58:55 Heparin Bolus 4000 units I.V. was administered by Mariam Toney RN; used for procedure; Verbal order read back and verified. 13:59:13 Heparin Flush Bag (1000units/500ml NS) 2 bags added to field was administered by Erasto Jeffries MD; used for procedure; Verbal order read back and verified. 13:59:28 Lidocaine 1% 20ml vial added to field was administered by Erasto Jeffries MD; used for procedure; Verbal order read back and verified. 14:02:37 COOK SHEATH 6FR RAABE 55CM (L08014) opened to sterile field. 14:02:38 Cook SANJAY 1 6FR. Guide sheath opened to sterile field. 14:05:32 INFLATOR BasixTOUCH (QT8011) opened to sterile field. 14:06:30 Inflate balloon Inflation number: 1 A Evercross 8 x 6 x 135 Balloon ([id number]) was prepped and advanced across the Undefined1 , then inflated. 14:10:44 Inflate balloon Inflation number: 2 A EVERCROSS 10 X 60 X 135 BALLOOON ([id number]) was prepped and advanced across the Undefined1 , then inflated. 14:21:33 COOK SHEATH 7FR RAABE 55CM (O60188) opened to sterile field. 14:22:15 Inflate balloon Inflation number: 3 A Evercross 12 x 20 x 135 ([id number]) was prepped and advanced across the Undefined1 , then inflated. 14:41:00 SHEATH 7FR [place] (JQC018) opened to sterile field. 14:41:29 SUTURE L27IN 2-0 MCRYL ILDA MO opened to sterile field. 14:41:41 Procedure ended.(Physican Out) 14:42:14 Fluoroscopy time 06.90 minutes. 14:42:20 Fluoroscopy dose: 418 mGy 14:42:20 Flurop Dose total: 418 14:42:51 Contrast amount:Isovue 300 120ml. 14:44:11 Procedure and supply charges have been captured, reviewed, submitted an d are correct. 14:44:25 Report given to AquaBling II. Intervention Summary Intervention Notes Time ActionType Lesion and Equipment Used Action# Pressure Duration Attributes 14:06:30 Inflate Undefined1 Evercross 8 x 6 1 0 00:00 balloon x 135 Balloon ([id number]) 14:10:44 Inflate Undefined1 EVERCROSS 10 X 2 0 00:00 balloon 60 X 135 BALLOOON ([id number]) 14:22:15 Inflate Undefined1 Evercross 12 x 3 0 00:00 balloon 20 x 135 ([id number]) Device Usage Item Name Manufacture Quantity Catalog Number Hospital Part Current M inimal Lot# / Charge Number Stock Stock Serial# Code Bag Decanter Microtek 1 [id number] 73527 176742 5 () Medical Inc. Sterile Cardinal 1 [id number] 793042 812623 5 Angiographic Health Pack Tegaderm 4 x 4 3M 1 1626W 133576 731863 451650 5 (1626W) MICROPUNCTURE Cook Medical 1 T92470 038141 627526 679546 5 4FR Cook (T42491) DOC Extension Polanco 1 22182 466244 651725 658057 5 wire (01264) Vascular SHEATH 6FR Terumo 1 URH774 344878 550497 686967 4 0 [place] (VQG210) GLIDE CATHETER Terumo 1 CG507 296657 995659 5 5FR ANGLED 65cm (CG507) GLIDE WIRE Terumo 1 WQ0533 110923 347411 932408 5 ANGLE 180cm (TX3119) GLIDE CATHETER Terumo 1 CG508 777514 49370 441657 4 5FR ANGLED 100cm (CG508) GLIDE WIRE Terumo 1 RP1865 861861 564673 243094 5 ANGLE 260cm (CE3439) PEDRAZA 260 wire Cook Medical 1 Q50295 612216 57832 689202 5 ([id number]) COOK SHEATH 6FR Cook Medical 1 K08436 586390 064159 039941 1 9132680 RAABE 55CM (T00015) Cook SANJAY 1 Cook Medical 1 F51700 352087 192931 5 [id number] 6FR. Guide sheath INFLATOR Merit 1 NQ5584 672635 487445 743715 5 [employer] (TY2784) Evercross 8 x 6 Medtronic 1 [id number] 422841 459397 368407 5 x 135 Balloon ([id number]) EVERCROSS 10 X Medtronic 1 [id number] 237045 385896 1 60 X 135 BALLOOON ([id number]) COOK SHEATH 7FR Cook Medical 1 N69600 557881 824069 433352 1 [id number] RAABE 55CM (D68136) Evercross 12 x Medtronic 1 [id number] 113355 115253 040478 5 20 x 135 ([id number]) SHEATH 7FR Terumo 1 PYV866 652706 335928 757566 5 [place] (SOD149) SUTURE L27IN Ethicon 1 [id number] 216223 409117 5 2-0 MCRYL ILDA MO Signature Audit Whately Stage Time Signature Unsigned Intra-Procedure 07/11/2019 Mindi Zamudio 2:44:57 PM RT(R) [facility] [address] [place] [address]
[2019-07-09 22:21] VITALS: BP 211/127
--- NOTE | 2019-07-09 22:41 | NUR ---
UNABLE TO OBTAIN IV OR BLOOD. SPOKE WITH DR MCGEE. STATES OK TO LET R/T DRAW LAB WITH ARTERIAL STICK.
[2019-07-09 22:55] LABS: BASOPHILS 0 % (0-2); EOSINOPHILS 0 % (0-7); HEMATOCRIT 28.2 % (42.0-54.0); HEMOGLOBIN 8.9 g/dL (13.5-17.5); IMMATURE GRANULOCYTES 0.2 % (0-5); LYMPHOCYTES 18.5 % (15-50); MCH 29.3 pg (26.0-34.0); MCHC 31.6 g/dL (31.0-37.0); MCV 92.8 fL (80.0-100.0); MEAN PLATELET VOLUME 9.8 fL (7.4-10.4); NEUTROPHILS 71.3 % (40-80); PLATELET COUNT 163 10x3/uL (130-400); RBC 3.04 10x6/uL (4.20-6.10); RDW 18.2 % (11.5-14.5)
[2019-07-09 23:21] LABS: CALC OSMOLALITY 306 mosm/kg (275-300); CALCIUM 8.2 mg/dL (8.5-10.1); CARBON DIOXIDE 16.9 mmol/L (21.0-32.0); CHLORIDE - SERUM 98 mmol/L (98-107); GLUCOSE 105 mg/dL (74-106); SODIUM 135 mmol/L (136-145); UREA NITROGEN 116 mg/dL (7-18); eGFR NON AFRICAN AMERICAN 4 mL/min (90-120)
[2019-07-09 23:35] LABS: ALKALINE PHOSPHATASE 95 U/L (46-116); ALT (SGPT) 23 U/L (10-68); BILIRUBIN - TOTAL 0.51 mg/dL (0.2-1.3); CKMB 6.4 U/L (0.0-3.6); CREATINE KINASE 200 UL (21-232); MAGNESIUM - SERUM 3.2 mg/dL (1.8-2.4); PROTEIN - SERUM 8.6 g/dL (6.4-8.2)
[2019-07-09 23:36] LABS: PRO BNP 104330 pg/mL (0-125)
--- NOTE | 2019-07-09 23:54 | NUR ---
PT HAS NO IV ACCESS. SPOKE TO DR. MCGEE- STATES HIS FLOOR PRN'S FOR PAIN CAN BE GIVEN IM, INSTEAD OF IM.
--- NOTE | 2019-07-10 00:25 | NUR ---
RECEIVED FROM ER,A&O, PT HAS [place], ON , STATES HE HASNT HAD ANY OF HIS MEDS SINCE TUESDAY WHEN HE WAS DISCHARGED FROM HOSPITAL, ASKING FOR A SANDWICH AND DRINK, WHICH I PROVIDED, DENIES ANY OTHER NEEDSN AT THIS TIME, BED IS LOW, SRX2, CALL LIGHT IN REACH, WILL CONTINUE PLAN OF CARE
[2019-07-10 01:04] VITALS: BP 185/116; BMI 24.3
[2019-07-10 04:00] VITALS: BP 187/119
--- NOTE | 2019-07-10 07:05 | NUR ---
RECIEVED REPORT. PATIENT IS RESTING QUIETLY ON HIS BACK AT THIS TIME. DENIES ANY NEEDS AT THIS TIME. PATIENT WILL RECIEVE DIALYSIS AND MOST LIKELY BE DISCHARGED TODAY.
[2019-07-10 09:01] VITALS: BP 176/116
--- NOTE | 2019-07-10 11:35 | NUR ---
PATIENT IS IN DIALYSIS NOW.
[2019-07-10 14:47] VITALS: Ht 177.8 cm; Wt 70.9 kg
--- NOTE | 2019-07-10 16:31 | NUR ---
PATIENT IS BACK FROM DIALYSIS. HE IS SITTING UP IN BED EATTING. HIS B/P IS HIGH, TREATING HIS PAIN NOW. CATARINA CALLED EARLIER AND ORDERED A FISTULAGRAM TO BE DONE ON HIS LEFT ARM . IT HAS EDEMA AND IS PAINFUL.
--- NOTE | 2019-07-10 16:45 | MORECARE ---
CASE MANAGEMENT DISCHARGE SUMMARY PATIENT: ODETTE OH UNIT: [id number] ADM DATE: 07/10/19 AGE: 58 : 64 SEX: M ROOM/BED: D.0723 AUTHOR: ETHAN MAHONEY PHYSICIAN: REFERRING PHYSICIAN: LEONA ALCANTAR MD DATE OF SERVICE: 07/10/19 Discharge Plan Patient Name: ODETTE OH [facility] [facility] 1960 Planned Disposition: Home Anticipated Discharge Date: Discharge Date: Expected LOS: Initial Reviewer: [id number] Initial Review Date: 07/10/2019 Generated: 07/10/19 5:45 pm Comments DCP- Discharge Planning Updated by [email or web address]: Jeff Christopher on 07/10/19 3:[address] Patient Name: ODETTE OH Admission Status: ER Accout number: [id number] Admission Date: 07-10-2019 : 1960 Admission Diagnosis: Attending: Leona Alcantar Current LOS: 1 Anticipated DC Date: Planned Disposition: Home Primary Insurance: MEDICAID [place] Discharge Planning Comments: CM MET WITH PT IN ROOM TO DISCUSS DISCHARGE PLANNING AND NEEDS. PT REPORTS LIVING AT HOME INDEPENDENTLY WITH 6 OTHER FAMILY MEMBERS. PT REPORTS NO ONE HAS A JOB AND HE IS HAVING TO PAY THE BILLS AT THE HOUSE. PT HAS A CANE WITH NO MEDICAL EQUIPMENT PROVIDER PREFERENCE. PT HAS NO OUTSIDE SERVICES ASSISTING IN THE HOME. PT IS SUPPOSED TO GO TO [facility] EMERGENCY ROOM FOR DIALYSIS BUT REPORTS HE IS NOT ABLE TO AFFORD THE $25 PER TRIP THAT THE "[employer]" BUS CHARGES TO GET TO AND FROM [place]. PT REPORTS HE HAS OTHER BILLS TO PAY. PT REPORTS HAVING TROUBLE FINDING FAMILY OR FRIENDS TO GET HIM TO AND FROM DIALYSIS. CM DISCUSSED AVAILABILITY OF HOME HEALTH, REHAB SERVICES AND MEDICAL EQUIPMENT. PT DENIES DISCHARGE NEEDS, REPORTS THAT CM CAN CALL [facility] (MEDICAID BUS) AND IF THEY WILL NOT CHARGE HIM, THEY CAN PICK HIM UP. OTHERWISE HE WILL HAVE TO TRY TO FIND "SOMEONE" TO PICK HIM UP AT DISCHARGE. PT PLANS TO DISCHARGE HOME WITH SIX OTHER FAMILY MEMBERS LIVING IN THE HOUSE. PT WOULD LIKE CM TO ARRANGE MEDICAID TRANSPORT FOR DISCHARGE HOME IF THEY WILL NOT CHARGE HIM $25 FOR THE TRIP. IF THERE IS A FEE, PT WILL NEED TO CALL FAMILY TO TRY TO GET A RIDE HOME AT DISCHARGE. CM TO FOLLOW AND ASSIST NEEDED. Weaver Dobby Loom: Jeff Christopher DCPIA - Discharge Planning Initial Assessment Updated by [id number]: Jeff Christopher on 07/10/19 4:38 pm * Is the patient Alert and Oriented? Yes * How many steps to enter\\exit or inside your home? NONE * PCP NONE * [facility] [place] * Preadmission Environment Home with Family * ADLs Independent * Equipment Cane * Other Equipment NO MEDICAL EQUIPMENT PROVIDER PREFERENCE * List name and contact numbers for known caregivers / representatives who currently or will assist patient after discharge: PEYTON [place], DTR, * Verbal permission to speak to the caregivers and representatives has been obtained from the patient. N/A * Community resources currently utilized Other * Please name any agencies selected above. OUTPATIENT DIALYSIS AT [facility] EMERGENCY ROOM IN [facility] F * Additional services required to return to the preadmission environment? No * Can the patient safely return to the preadmission environment? Yes * Has this patient been hospitalized within the prior 30 days at any hospital? Yes Patient Name: ODETTE OH Page [id number] at 1645 All edits/amendments must be made on the electronic document DICTATION DATE: 07/10/191644 MEDICAL HOSPITAL SALES: [facility] 07/10/191644 RPT#: [id number] OK DATE: STATUS: ADM IN [facility] [address] [place] [address] END OF REPORT
[2019-07-10 17:15] VITALS: BP 174/99
--- NOTE | 2019-07-10 18:00 | NUR ---
IV START IN RIGHT FOREARM. 20 G ONE STICK. HE IS USING THE HIPP[employer]LEAN[employer] WIPES AND PUTTING ON A HOSPITAL GOWN NOW.
--- NOTE | 2019-07-10 19:33 | NUR ---
PT HAS WASHED WITH SOLN AND CHANGED INTO HOSP GOWN BED LOW AND LOCKED PT EXPRESSES DESIRE TO BE LEFT ALONE
[2019-07-10 20:00] VITALS: BP 159/91
[2019-07-11] VITALS: BP 155/95
--- NOTE | 2019-07-11 02:56 | NUR ---
I have reviewed this patient and I concur with the Shift Assessment completed by the Licensed Practical Nurse today this shift.
[2019-07-11 06:11] LABS: BASOPHILS 0 % (0-2); EOSINOPHILS 0.4 % (0-7); HEMATOCRIT 28.4 % (42.0-54.0); HEMOGLOBIN 8.7 g/dL (13.5-17.5); IMMATURE GRANULOCYTES 0.4 % (0-5); LYMPHOCYTES 21.1 % (15-50); MCH 29.1 pg (26.0-34.0); MCHC 30.6 g/dL (31.0-37.0); MEAN PLATELET VOLUME 10.1 fL (7.4-10.4); NEUTROPHILS 69.1 % (40-80); PLATELET COUNT 177 10x3/uL (130-400); RBC 2.99 10x6/uL (4.20-6.10); RDW 18.1 % (11.5-14.5); WBC 4.8 10x3/uL (4.8-10.8)
[2019-07-11 06:27] VITALS: BP 145/98
[2019-07-11 06:32] LABS: APTT 27.2 SECONDS (22.8-39.4); INR 1.11 (0.85-1.17); PROTIME 13.8 SECONDS (11.6-15.0)
[2019-07-11 06:45] LABS: CALCIUM 7.7 mg/dL (8.5-10.1); CREATININE - SERUM 9.8 mg/dL (0.6-1.3); PHOSPHOROUS 8.7 mg/dL (2.5-4.9)
[2019-07-11 06:53] LABS: ANION GAP 24.1 mmol/L (8-16); CARBON DIOXIDE 22.9 mmol/L (21.0-32.0)
--- NOTE | 2019-07-11 09:30 | NUR ---
PT LYING IN BED. EYES CLOSED. CHEST RISING AND FALLING. O2 AT 4L VIA NC. RIGHT FA 20G IV SL. BED LOW. CL IN REACH. WILL CONTINUE TO MONITOR.
[2019-07-11 09:36] VITALS: BP 127/88
--- NOTE | 2019-07-11 10:00 | NUR ---
PT TO HAVE DIALYSIS AFTER PROCEDURE.
--- NOTE | 2019-07-11 12:55 | NUR ---
PT PREOP'D AND TAKEN TO IR VIA BED FOR FISTULOGRAM.
[2019-07-11 13:05] VITALS: BP 127/87
[2019-07-11 15:44] VITALS: BP 111/82
--- NOTE | 2019-07-11 15:44 | NUR ---
PT RETURNED FROM LEFT ARM FISTULOGRAM VIA BED. ALERT AND ORIENTED. O2 AT 4L VIA NC. VS STABLE. LEFT ARM HAS GOOD BRUIRY AND THRILL DRESSING C/D/I. ICE OVER LEFT ARM ORDERED. PT TO GO TO DIALYSIS TODAY. DIALYSIS TO CALL WHEN THEY ARE READY FOR PT. SANDWICH ORDERED FROM [employer] GOT PT A ICE WATER. PT HAS NO FURTHER NEEDS AT THIS TIME. BED LOW. CL IN REACH. WILL CONTINUE TO MONITOR.
--- NOTE | 2019-07-11 15:44 | NUR ---
PT RETURNED FROM LEFT ARM FISTULOGRAM VIA BED. ALERT AND ORIENTED. O2 AT 4L VIA NC. VS STABLE. LEFT ARM HAD GOOD BRUIRY AND THRILL DRESSING C/D/I. PT TO GO TO DIALYSIS TODAY. SANDWICH ORDERED FROM [employer] GOT PT A ICE WATER. PT HAS NO FURTHER NEEDS AT THIS TIME. BED LOW. CL IN REACH. WILL COTNINUE TO MONITOR.
[2019-07-11 16:00] VITALS: BP 110/89
--- NOTE | 2019-07-11 16:17 | NUR ---
PT TAKEN TO DIALYSIS VIA BED.
--- NOTE | 2019-07-11 17:07 | MORECARE ---
CASE MANAGEMENT DISCHARGE SUMMARY PATIENT: ODETTE OH UNIT: [id number] ADM DATE: 07/10/19 AGE: 58 : 64 SEX: M ROOM/BED: D.0923 AUTHOR: ETHAN MAHONEY PHYSICIAN: REFERRING PHYSICIAN: LEONA ALCANTAR MD DATE OF SERVICE: 07/11/19 Discharge Plan Patient Name: ODETTE HO [facility] [facility] 1960 Planned Disposition: Home Anticipated Discharge Date: 07/12/19 Discharge Date: Expected LOS: 2 Initial Reviewer: [id number] Initial Review Date: 07/10/2019 Generated: 07/11/19 6:07 pm Comments DCP- Discharge Planning Updated by [email or web address]: Jeff Christopher on 07/10/19 3:[address] Patient Name: ODETTE OH Admission Status: ER Accout number: [id number] Admission Date: 07-10-2019 : 1960 Admission Diagnosis: Attending: Leona Alcantar Current LOS: 1 Anticipated DC Date: Planned Disposition: Home Primary Insurance: MEDICAID [place] Discharge Planning Comments: CM MET WITH PT IN ROOM TO DISCUSS DISCHARGE PLANNING AND NEEDS. PT REPORTS LIVING AT HOME INDEPENDENTLY WITH 6 OTHER FAMILY MEMBERS. PT REPORTS NO ONE HAS A JOB AND HE IS HAVING TO PAY THE BILLS AT THE HOUSE. PT HAS A CANE WITH NO MEDICAL EQUIPMENT PROVIDER PREFERENCE. PT HAS NO OUTSIDE SERVICES ASSISTING IN THE HOME. PT IS SUPPOSED TO GO TO [facility] EMERGENCY ROOM FOR DIALYSIS BUT REPORTS HE IS NOT ABLE TO AFFORD THE $25 PER TRIP THAT THE "[employer]" BUS CHARGES TO GET TO AND FROM [place]. PT REPORTS HE HAS OTHER BILLS TO PAY. PT REPORTS HAVING TROUBLE FINDING FAMILY OR FRIENDS TO GET HIM TO AND FROM DIALYSIS. CM DISCUSSED AVAILABILITY OF HOME HEALTH, REHAB SERVICES AND MEDICAL EQUIPMENT. PT DENIES DISCHARGE NEEDS, REPORTS THAT CM CAN CALL [facility] (MEDICA[employer] BUS) AND IF THEY WILL NOT CHARGE HIM, THEY CAN PICK HIM UP. OTHERWISE HE WILL HAVE TO TRY TO FIND "SOMEONE" TO PICK HIM UP AT DISCHARGE. PT PLANS TO DISCHARGE HOME WITH SIX OTHER FAMILY MEMBERS LIVING IN THE HOUSE. PT WOULD LIKE CM TO ARRANGE MEDICAID TRANSPORT FOR DISCHARGE HOME IF THEY WILL NOT CHARGE HIM $25 FOR THE TRIP. IF THERE IS A FEE, PT WILL NEED TO CALL FAMILY TO TRY TO GET A RIDE HOME AT DISCHARGE. CM TO FOLLOW AND ASSIST NEEDED. Sausage Canner: Jeff Christopher DCPIA - Discharge Planning Initial Assessment Updated by [id number]: Jeff Christopher on 07/10/19 4:38 pm * Is the patient Alert and Oriented? Yes * How many steps to enter\\exit or inside your home? NONE * PCP NONE * [facility]acy [facility] [place] * Preadmission Environment Home with Family * ADLs Independent * Equipment Cane * Other Equipment NO MEDICAL EQUIPMENT PROVIDER PREFERENCE * List name and contact numbers for known caregivers / representatives who currently or will assist patient after discharge: [place], DTR, * Verbal permission to speak to the caregivers and representatives has been obtained from the patient. N/A * Community resources currently utilized Other * Please name any agencies selected above. OUTPATIENT DIALYSIS AT [facility] EMERGENCY ROOM IN [facility] F * Additional services required to return to the preadmission environment? No * Can the patient safely return to the preadmission environment? Yes * Has this patient been hospitalized within the prior 30 days at any hospital? Yes Last DP export: 07/10/19 3:45 Patient Name: TREVON OHY Page 90323 at 1707 All edits/amendments must be made on the electronic document DICTATION DATE: 07/11/191705 PRINTED CIRCUIT BOARD ASSEMBLER: [facility] 07/11/191705 RPT#: [id number] DC DATE: STATUS: ADM IN [facility] [address] [place] [address] END OF REPORT
--- NOTE | 2019-07-11 17:17 | MORECARE ---
CASE MANAGEMENT DISCHARGE SUMMARY PATIENT: ODETTE OH UNIT: [id number] ADM DATE: 07/10/19 AGE: 58 : 64 SEX: M ROOM/BED: D.2133 AUTHOR: MARU,DOC PHYSICIAN: REFERRING PHYSICIAN: LEONA ALCANTAR MD DATE OF SERVICE: 07/11/19 Discharge Plan Patient Name: ODETTE OH Facility: [facility]:[place] : 1960 Planned Disposition: Home Anticipated Discharge Date: 07/12/19 Discharge Date: Expected LOS: 2 Initial Reviewer: [email or web address] Initial Review Date: 07/10/2019 Generated: 07/11/19 6:17 pm Comments DCP- Discharge Planning Updated by [id number]: Jeff Christopher on 07/11/19 4:[address] Patient Name: ODETTE OH Encounter No: [id number] : 1960 Primary Insurance: MEDICAID [place] Anticipated DC Date: 07-12-2019 Planned Disposition: Home DCP follow-up note: LENO CALLED AND SPOKE TO BEAR OF MEDICAID TRANSPORTATION. PT IS NOT ELIGIBLE FOR MEDICAID TRANSPORTATION DUE TO THE SENIOR CARE THAT PT WAS IN NOT "RELEASING" FOR MEDICAID TRANSPORTATION IN [facility]. LENO CALLED [facility] IN [facility], SPOKE TO LENA WHO REPORTS SHE WILL COMPLETE AND FAX THE FORM 702 THAT WAS NOT COMPLETED AND FAX TO MEDICAID TODAY. PT SHOULD BE ABLE TO GO TO HIS LOCAL [facility] OFFICE AND GET THE TRANSPORTATION VENDOR ASSIGNED AGAIN. LENO NOTIFIED BEAR AT MEDICAID TRANSPORTATION WHO ADVISED THAT PT MUST HAVE HIS LOCAL [facility] OFFICE MAKE THE ASSIGNMENT TO [facility] TRANSPORT PROVIDER, PT SHOULD THEN BE ELIGIBLE AGAIN FOR MEDICAID TRANSPORT SERVICES. LENO NOTIFIED PT THAT HE IS NOT ELIGIBLE FOR MEDICAID TRANSPORTATION AND PROVIDED WRITTEN INSTRUCTIONS TO CONTACT HIS LOCAL [facility] OFFICE ([facility] DEPARTMENT OF HUMAN SERVICES) AND REQUEST THE ASSIGNMENT TO [facility] TRANSPORT PROVIDER, LENO ADVISED THAT PT WILL HAVE TO HAVE FAMILY OR A FRIEND TO TRANSPORT HOME. Jeff Christopher CASE MANAGEMENT DCP- Discharge Planning Updated by [email or web address]: Jeff Christopher on 07/10/19 3:[address] Patient Name: ODETTE OH Admission Status: ER Accout number: [id number] Admission Date: 07-10-2019 : 1960 Admission Diagnosis: Attending: Leona Alcantar Current LOS: 1 Anticipated DC Date: Planned Disposition: Home Primary Insurance: MEDICAID [place] Discharge Planning Comments: CM MET WITH PT IN ROOM TO DISCUSS DISCHARGE PLANNING AND NEEDS. PT REPORTS LIVING AT HOME INDEPENDENTLY WITH 6 OTHER FAMILY MEMBERS. PT REPORTS NO ONE HAS A JOB AND HE IS HAVING TO PAY THE BILLS AT THE HOUSE. PT HAS A CANE WITH NO MEDICAL EQUIPMENT PROVIDER PREFERENCE. PT HAS NO OUTSIDE SERVICES ASSISTING IN THE HOME. PT IS SUPPOSED TO GO TO [facility] EMERGENCY ROOM FOR DIALYSIS BUT REPORTS HE IS NOT ABLE TO AFFORD THE $25 PER TRIP THAT THE "[facility]" BUS CHARGES TO GET TO AND FROM [place]. PT REPORTS HE HAS OTHER BILLS TO PAY. PT REPORTS HAVING TROUBLE FINDING FAMILY OR FRIENDS TO GET HIM TO AND FROM DIALYSIS. CM DISCUSSED AVAILABILITY OF HOME HEALTH, REHAB SERVICES AND MEDICAL EQUIPMENT. PT DENIES DISCHARGE NEEDS, REPORTS THAT CM CAN CALL [facility] (MEDICAID BUS) AND IF THEY WILL NOT CHARGE HIM, THEY CAN PICK HIM UP. OTHERWISE HE WILL HAVE TO TRY TO FIND "SOMEONE" TO PICK HIM UP AT DISCHARGE. PT PLANS TO DISCHARGE HOME WITH SIX OTHER FAMILY MEMBERS LIVING IN THE HOUSE. PT WOULD LIKE CM TO ARRANGE MEDICAID TRANSPORT FOR DISCHARGE HOME IF THEY WILL NOT CHARGE HIM $25 FOR THE TRIP. IF THERE IS A FEE, PT WILL NEED TO CALL FAMILY TO TRY TO GET A RIDE HOME AT DISCHARGE. CM TO FOLLOW AND ASSIST NEEDED. Customer Orders Clerk: Jeff Christopher DCPIA - Discharge Planning Initial Assessment Updated by [id number]: Jeff Christopher on 07/10/19 4:38 pm * Is the patient Alert and Oriented? Yes * How many steps to enter\\exit or inside your home? NONE * PCP NONE * Pharmacy [facility] IN [place] * Preadmission Environment Home with Family * ADLs Independent * Equipment Cane * Other Equipment NO MEDICAL EQUIPMENT PROVIDER PREFERENCE * List name and contact numbers for known caregivers / representatives who currently or will assist patient after discharge: PEYTON OH DTR, * Verbal permission to speak to the caregivers and representatives has been obtained from the patient. N/A * Community resources currently utilized Other * Please name any agencies selected above. OUTPATIENT DIALYSIS AT [facility] EMERGENCY ROOM IN [place], [place] & [place] * Additional services required to return to the preadmission environment? No * Can the patient safely return to the preadmission environment? Yes * Has this patient been hospitalized within the prior 30 days at any hospital? Yes Last DP export: 07/11/19 4:07 Patient Name: ODETTE OH Page 05934 at 1717 All edits/amendments must be made on the electronic document DICTATION DATE: 07/11/191716 BARREL COATER: [facility] 07/11/191716 RPT#: [id number] DC DATE: STATUS: ADM IN [facility] [address] [place] [address] END OF REPORT
--- NOTE | 2019-07-11 17:24 | NUR ---
PT DOES NOT WANT TO BE DISCHARGED TONIGHT. PAGED HODA ANP.
--- NOTE | 2019-07-11 17:35 | NUR ---
SPOKE WITH HODA TREVINO AND SHE STATES PT "NEEDS TO LEAVE TONIGHT. HIS INSURANCE WON'T COVER ANOTHER NIGHT. WE USUALLY HAVE TO PERSUADE HIM TO LEAVE. WE'VE HAD SECURITY HAVE TO ESCORT HIM OUT BEFORE." I VERBALIZED UNDERSTANDING.
--- NOTE | 2019-07-11 19:25 | NUR ---
EVENING ROUNDS COMPLETE. PT IN DIALYSIS AT THIS TIME.
--- NOTE | 2019-07-11 20:06 | NUR ---
PT BACK FROM DIALYSIS AT THIS TIME. NO SIGNS OF DISTRESS. PT DENIES ANY NEEDS, TEMP: 97.4, BP: 111/84, O2 91% ON 2L, HR 93. CL IN REACH, BED IN LOWEST POSITION.
--- NOTE | 2019-07-11 21:00 | NUR ---
HEIDI SKINNER GEOMETRY PROFESSOR DUE TO PT O2 SAT DROPPING TO 78% WHEN O2 IS AT 2L OR LESS.
--- NOTE | 2019-07-11 21:15 | NUR ---
HODA SKNINER APN ORDERED STAT CHEST XRAY, MORNING CMP AND CBC. PT WILL NOT BE DISCHARGING TONIGHT.
[2019-07-12] VITALS: BP 126/82
[2019-07-12 04:00] VITALS: BP 125/81
[2019-07-12 05:31] LABS: BASOPHILS 0 % (0-2); EOSINOPHILS 0 % (0-7); HEMATOCRIT 30.7 % (42.0-54.0); HEMOGLOBIN 9.3 g/dL (13.5-17.5); IMMATURE GRANULOCYTES 0.3 % (0-5); LYMPHOCYTES 12.8 % (15-50); MCH 29.3 pg (26.0-34.0); MCHC 30.3 g/dL (31.0-37.0); MCV 96.8 fL (80.0-100.0); MEAN PLATELET VOLUME 10.2 fL (7.4-10.4); NEUTROPHILS 74.9 % (40-80); PLATELET COUNT 156 10x3/uL (130-400); RBC 3.17 10x6/uL (4.20-6.10); RDW 17.7 % (11.5-14.5)
[2019-07-12 05:52] LABS: ALBUMIN 2.8 g/dL (3.4-5.0); ANION GAP 17.2 mmol/L (8-16); BILIRUBIN - TOTAL 0.41 mg/dL (0.2-1.3); CALCIUM 7.7 mg/dL (8.5-10.1); CARBON DIOXIDE 26.8 mmol/L (21.0-32.0); PHOSPHOROUS 7.6 mg/dL (2.5-4.9)
[2019-07-12 05:53] LABS: CREATININE - SERUM 7.1 mg/dL (0.6-1.3)
--- NOTE | 2019-07-12 08:30 | NUR ---
ASSESSED PATIENTS OXYGEN LEVEL ON ROOM AIR. 94% IS WHAT WAS OBTAINED. WILL CONTINUE DISCHARGE PER ORDER
[2019-07-12 09:25] VITALS: BP 120/89
--- NOTE | 2019-07-12 09:37 | NUR ---
PATIENT CALLED NURSE TO ROOM AND ASKED FOR PAIN MEDICATION. NURSE INFORMED PATIENT THAT NO PAIN MEDICATION WOULD BE GIVEN BECAUSE THE PATIENT HAS BEEN DISCHARGED. NURSE LEFT ROOM TO GO GET DISCHARGE PAPERS. WHEN NURSE RETURNED THE PATIENT WAS COMPLAINING OF SHORTNESS OF BREATH AND HAD PUT BEACK ON HIS OWN OXYGEN. REQUESTED THE DOCTOR TO COME IN THE ROOM. THE DOCTOR STATED THAT THE PATIENT WAS DISCHARGED AND HE DIDNT HAVE TO SIGN HIS PAPERS IF HE DIDNT WANT TO BU THE PATIENT WAS STILL TO BE DISCHARGED TODAY. DOCTOR REPORTED TO CALL SECURITY IF NEEDED. SUPERVISOR CLEANING AND ANNEALING WAS CALLED.
--- NOTE | 2019-07-12 12:43 | NUR ---
Received call from pts primary nurse, Renee, around 929 stating that the patient has been discharged per his renal doctor and that the patient is being unruly, cursing, and refusing to discharge. I spoke with the patient and explained to him that he has been discharged by his physician and that he no longer required inpatient care. He was calm and stated he was trying to get a hold of his daughter is having trouble getting the phone to dial. The number is long distance. He gave me permission to call his daughter for him. I spoke with Helen and let her know her father had been discharged and he needed a ride home. She said she would find him a ride. I asked her to call us when she is on her way so we can have him ready. She agreed. I let the patient know I spoke with his daughter and he was thankful. He asked for pain medicdtion at this time. Renee gave him the tylenol ordered by his physician.
[2019-07-12 13:08] VITALS: BP 115/84
--- NOTE | 2019-07-12 13:34 | NUR ---
Pt remains in hospital at this time. I spoke with daughter, Helen, via telephone. She states she has been unable to reach family or friends by phone. She states she does not have a car and asked if she could have more time to find a ride. I gave her my number and asked her to let me know when she finds transportation for her father. I then notified Sonia, immigration case worker, regarding the transportation situation. She is checking to see if there are any resources she can help with.
--- NOTE | 2019-07-12 15:54 | MORECARE ---
CASE MANAGEMENT DISCHARGE SUMMARY PATIENT: ODETTE OH UNIT: [id number] ADM DATE: 07/10/19 AGE: 58 : 64 SEX: M ROOM/BED: D.2133 AUTHOR: MARU,DOC PHYSICIAN: REFERRING PHYSICIAN: LEONA ALCANTAR MD DATE OF SERVICE: 07/12/19 Discharge Plan Patient Name: ODETTE OH Facility: [facility]:[place] : 1960 Planned Disposition: Home Anticipated Discharge Date: 07/12/19 Discharge Date: 07/12/2019 Expected LOS: 2 Initial Reviewer: [id number] Initial Review Date: 07/10/2019 Generated: 07/12/19 4:54 pm Comments DCP- Discharge Planning Updated by [id number]: Sonia Barrera on 07/12/19 2:[address] CM notified by warehouse team member Sherin that patient was discharged and didn't have any transportation home. She had spoke with patient's daughter and she had not been able to get in touch with any family to transport patient home. Taxi voucher used to get patient home. CM spoke with patient and instructed since it is a holiday and him having no transportation then taxi had been approved. DCP- Discharge Planning Updated by [id number]: Jeff Christopher on 07/11/19 4:[address] Patient Name: ODETTE OH Encounter No: [id number] : 1960 Primary Insurance: MEDICAID [place] Anticipated DC Date: 07-12-2019 Planned Disposition: Home DCP follow-up note: LENO CALLED AND SPOKE TO BEAR OF MEDICAID TRANSPORTATION. PT IS NOT ELIGIBLE FOR MEDICAID TRANSPORTATION DUE TO THE GROUP HOME THAT PT WAS IN NOT "RELEASING" FOR MEDICAID TRANSPORTATION IN [facility]. LENO CALLED [facility] IN [facility], SPOKE TO LENA WHO REPORTS SHE WILL COMPLETE AND FAX THE FORM 702 THAT WAS NOT COMPLETED AND FAX TO MEDICAID TODAY. PT SHOULD BE ABLE TO GO TO HIS LOCAL [facility] OFFICE AND GET THE TRANSPORTATION VENDOR ASSIGNED AGAIN. LENO NOTIFIED BEAR AT MEDICAID TRANSPORTATION WHO ADVISED THAT PT MUST HAVE HIS LOCAL [facility] OFFICE MAKE THE ASSIGNMENT TO [facility] TRANSPORT PROVIDER, PT SHOULD THEN BE ELIGIBLE AGAIN FOR MEDICAID TRANSPORT SERVICES. CM NOTIFIED PT THAT HE IS NOT ELIGIBLE FOR MEDICAID TRANSPORTATION AND PROVIDED WRITTEN INSTRUCTIONS TO CONTACT HIS LOCAL [facility] OFFICE ([facility] DEPARTMENT OF HUMAN SERVICES) AND REQUEST THE ASSIGNMENT TO [facility] TRANSPORT PROVIDER, CM ADVISED THAT PT WILL HAVE TO HAVE FAMILY OR A FRIEND TO TRANSPORT HOME. Jeff Christopher, CASE MANAGEMENT DCP- Discharge Planning Updated by [id number]: Jeff Christopher on 07/10/19 3:[address] Patient Name: ODETTE OH Admission Status: ER Accout number: [id number] Admission Date: 07-10-2019 : 1960 Admission Diagnosis: Attending: Leona Alcantar Current LOS: 1 Anticipated DC Date: Planned Disposition: Home Primary Insurance: MEDICAID [place] Discharge Planning Comments: CM MET WITH PT IN ROOM TO DISCUSS DISCHARGE PLANNING AND NEEDS. PT REPORTS LIVING AT HOME INDEPENDENTLY WITH 6 OTHER FAMILY MEMBERS. PT REPORTS NO ONE HAS A JOB AND HE IS HAVING TO PAY THE BILLS AT THE HOUSE. PT HAS A CANE WITH NO MEDICAL EQUIPMENT PROVIDER PREFERENCE. PT HAS NO OUTSIDE SERVICES ASSISTING IN THE HOME. PT IS SUPPOSED TO GO TO [facility] EMERGENCY ROOM FOR DIALYSIS BUT REPORTS HE IS NOT ABLE TO AFFORD THE $25 PER TRIP THAT THE "[facility]" BUS CHARGES TO GET TO AND FROM [place]. PT REPORTS HE HAS OTHER BILLS TO PAY. PT REPORTS HAVING TROUBLE FINDING FAMILY OR FRIENDS TO GET HIM TO AND FROM DIALYSIS. CM DISCUSSED AVAILABILITY OF HOME HEALTH, REHAB SERVICES AND MEDICAL EQUIPMENT. PT DENIES DISCHARGE NEEDS, REPORTS THAT CM CAN CALL [facility] (MEDICAID BUS) AND IF THEY WILL NOT CHARGE HIM, THEY CAN PICK HIM UP. OTHERWISE HE WILL HAVE TO TRY TO FIND "SOMEONE" TO PICK HIM UP AT DISCHARGE. PT PLANS TO DISCHARGE HOME WITH SIX OTHER FAMILY MEMBERS LIVING IN THE HOUSE. PT WOULD LIKE CM TO ARRANGE MEDICAID TRANSPORT FOR DISCHARGE HOME IF THEY WILL NOT CHARGE HIM $25 FOR THE TRIP. IF THERE IS A FEE, PT WILL NEED TO CALL FAMILY TO TRY TO GET A RIDE HOME AT DISCHARGE. CM TO FOLLOW AND ASSIST NEEDED. Die Presser: Jeff Christopher DCPIA - Discharge Planning Initial Assessment Updated by [id number]: Jeff Christopher on 07/10/19 4:38 pm * Is the patient Alert and Oriented? Yes * How many steps to enter\\exit or inside your home? NONE * PCP NONE * Pharmacy [facility] IN [place] * Preadmission Environment Home with Family * ADLs Independent * Equipment Cane * Other Equipment NO MEDICAL EQUIPMENT PROVIDER PREFERENCE * List name and contact numbers for known caregivers / representatives who currently or will assist patient after discharge: [place], DTR, * Verbal permission to speak to the caregivers and representatives has been obtained from the patient. N/A * Community resources currently utilized Other * Please name any agencies selected above. OUTPATIENT DIALYSIS AT [facility] EMERGENCY ROOM IN [facility] & F * Additional services required to return to the preadmission environment? No * Can the patient safely return to the preadmission environment? Yes * Has this patient been hospitalized within the prior 30 days at any hospital? Yes Last DP export: 07/11/19 4:17 Patient Name: ODETTE OH Page 05203 at 1554 All edits/amendments must be made on the electronic document DICTATION DATE: 07/12/191553 CLAIMS COORDINATOR: [facility] 07/12/191553 RPT#: [id number] DC DATE:07/12/19 STATUS: DIS IN [facility] [address] [place] [address] END OF REPORT
--- NOTE | 2019-07-14 15:35 | MORECARE ---
CASE MANAGEMENT DISCHARGE SUMMARY PATIENT: ODETTE OH UNIT: [id number] ADM DATE: 07/10/19 AGE: 58 : 64 SEX: M ROOM/BED: D.2133 AUTHOR: MARU,DOC PHYSICIAN: REFERRING PHYSICIAN: LEONA ALCANTAR MD DATE OF SERVICE: 07/14/19 Discharge Plan Patient Name: ODETTE OH Facility: [facility]:[place] : 1960 Planned Disposition: Home Anticipated Discharge Date: 07/12/19 Discharge Date: 07/12/2019 Expected LOS: 2 Initial Reviewer: [id number] Initial Review Date: 07/10/2019 Generated: 07/14/19 4:35 pm Comments DCP- Discharge Planning Updated by [email or web address]: Sonia Barrera on 07/12/19 2:[address] CM notified by switch house operator Sherin that patient was discharged and didn't have any transportation home. She had spoke with patient's daughter and she had not been able to get in touch with any family to transport patient home. Taxi voucher used to get patient home. CM spoke with patient and instructed since it is a holiday and him having no transportation then taxi had been approved. DCP- Discharge Planning Updated by [id number]: Jeff Christopher on 07/11/19 4:[address] Patient Name: ODETTE OH Encounter No: [id number] : 1960 Primary Insurance: MEDICAID [place] Anticipated DC Date: 07-12-2019 Planned Disposition: Home DCP follow-up note: LENO CALLED AND SPOKE TO BEAR OF MEDICAID TRANSPORTATION. PT IS NOT ELIGIBLE FOR MEDICAID TRANSPORTATION DUE TO THE LONG TERM THAT PT WAS IN NOT "RELEASING" FOR MEDICAID TRANSPORTATION IN [facility]. LENO CALLED [facility] IN [facility], SPOKE TO LENA WHO REPORTS SHE WILL COMPLETE AND FAX THE FORM [phone] THAT WAS NOT COMPLETED AND FAX TO MEDICAID TODAY. PT SHOULD BE ABLE TO GO TO HIS LOCAL [facility] OFFICE AND GET THE TRANSPORTATION VENDOR ASSIGNED AGAIN. LENO NOTIFIED BEAR AT MEDICAID TRANSPORTATION WHO ADVISED THAT PT MUST HAVE HIS LOCAL [facility] OFFICE MAKE THE ASSIGNMENT TO [facility] TRANSPORT PROVIDER, PT SHOULD THEN BE ELIGIBLE AGAIN FOR MEDICAID TRANSPORT SERVICES. CM NOTIFIED PT THAT HE IS NOT ELIGIBLE FOR MEDICAID TRANSPORTATION AND PROVIDED WRITTEN INSTRUCTIONS TO CONTACT HIS LOCAL [facility] OFFICE ([facility]) AND REQUEST THE ASSIGNMENT TO [facility] TRANSPORT PROVIDER, CM ADVISED THAT PT WILL HAVE TO HAVE FAMILY OR A FRIEND TO TRANSPORT HOME. Jeff Christopher, CASE MANAGEMENT DCP- Discharge Planning Updated by [id number]: Jeff Christopher on 07/10/19 3:[address] Patient Name: ODETTE OH Admission Status: ER Accout number: [id number] Admission Date: 07-10-2019 : 1960 Admission Diagnosis: Attending: Leona Alcantar Current LOS: 1 Anticipated DC Date: Planned Disposition: Home Primary Insurance: MEDICAID [place] Discharge Planning Comments: CM MET WITH PT IN ROOM TO DISCUSS DISCHARGE PLANNING AND NEEDS. PT REPORTS LIVING AT HOME INDEPENDENTLY WITH 6 OTHER FAMILY MEMBERS. PT REPORTS NO ONE HAS A JOB AND HE IS HAVING TO PAY THE BILLS AT THE HOUSE. PT HAS A CANE WITH NO MEDICAL EQUIPMENT PROVIDER PREFERENCE. PT HAS NO OUTSIDE SERVICES ASSISTING IN THE HOME. PT IS SUPPOSED TO GO TO [facility] EMERGENCY ROOM FOR DIALYSIS BUT REPORTS HE IS NOT ABLE TO AFFORD THE $25 PER TRIP THAT THE "[facility]" BUS CHARGES TO GET TO AND FROM [place]. PT REPORTS HE HAS OTHER BILLS TO PAY. PT REPORTS HAVING TROUBLE FINDING FAMILY OR FRIENDS TO GET HIM TO AND FROM DIALYSIS. CM DISCUSSED AVAILABILITY OF HOME HEALTH, REHAB SERVICES AND MEDICAL EQUIPMENT. PT DENIES DISCHARGE NEEDS, REPORTS THAT CM CAN CALL [facility] (MEDICAID BUS) AND IF THEY WILL NOT CHARGE HIM, THEY CAN PICK HIM UP. OTHERWISE HE WILL HAVE TO TRY TO FIND "SOMEONE" TO PICK HIM UP AT DISCHARGE. PT PLANS TO DISCHARGE HOME WITH SIX OTHER FAMILY MEMBERS LIVING IN THE HOUSE. PT WOULD LIKE CM TO ARRANGE MEDICAID TRANSPORT FOR DISCHARGE HOME IF THEY WILL NOT CHARGE HIM $25 FOR THE TRIP. IF THERE IS A FEE, PT WILL NEED TO CALL FAMILY TO TRY TO GET A RIDE HOME AT DISCHARGE. CM TO FOLLOW AND ASSIST NEEDED. Learning Program Manager: Jeff Christopher DCPIA - Discharge Planning Initial Assessment Updated by [id number]: Jeff Christopher on 07/10/19 4:38 pm * Is the patient Alert and Oriented? Yes * How many steps to enter\\exit or inside your home? NONE * PCP NONE * [facility] [place] * Preadmission Environment Home with Family * ADLs Independent * Equipment Cane * Other Equipment NO MEDICAL EQUIPMENT PROVIDER PREFERENCE * List name and contact numbers for known caregivers / representatives who currently or will assist patient after discharge: PEYTON OH, DTR, * Verbal permission to speak to the caregivers and representatives has been obtained from the patient. N/A * Community resources currently utilized Other * Please name any agencies selected above. OUTPATIENT DIALYSIS AT [facility] IN [facility] * Additional services required to return to the preadmission environment? No * Can the patient safely return to the preadmission environment? Yes * Has this patient been hospitalized within the prior 30 days at any hospital? Yes Last DP export: 07/12/19 2:54 Patient Name: ODETTE OH Page 19091 at 1535 All edits/amendments must be made on the electronic document DICTATION DATE: 07/14/19 153 DEPUTY DIRECTOR OF PUBLIC WORKS: LUH 07/14/19 153 RPT#: [id number] DC DATE:07/12/19 STATUS: DIS IN [facility] [address] [place] [address] END OF REPORT
--- NOTE | 2019-07-14 15:44 | MORECARE ---
CASE MANAGEMENT DISCHARGE SUMMARY PATIENT: ODETTE OH UNIT: [id number] ADM DATE: 07/10/19 AGE: 58 : 64 SEX: M ROOM/BED: D.2133 AUTHOR: MARU,DOC PHYSICIAN: REFERRING PHYSICIAN: LEONA ALCANTAR MD DATE OF SERVICE: 07/14/19 Discharge Plan Patient Name: ODETTE OH Facility: [facility]:[place] : 1960 Planned Disposition: Home Anticipated Discharge Date: 07/12/19 Discharge Date: 07/12/2019 Expected LOS: 2 Initial Reviewer: [id number] Initial Review Date: 07/10/2019 Generated: 07/14/19 4:44 pm Comments DCP- Discharge Planning Updated by [email or web address]: Sonia Barrera on 07/12/19 2:[address] CM notified by boiler house operator Sherin that patient was discharged and didn't have any transportation home. She had spoke with patient's daughter and she had not been able to get in touch with any family to transport patient home. Taxi voucher used to get patient home. CM spoke with patient and instructed since it is a holiday and him having no transportation then taxi had been approved. DCP- Discharge Planning Updated by [email or web address]: Jeff Christopher on 07/11/19 4:[address] Patient Name: ODETTE OH Encounter No: [id number] : 1960 Primary Insurance: MEDICAID [place] Anticipated DC Date: 07-12-2019 Planned Disposition: Home DCP follow-up note: LENO CALLED AND SPOKE TO BEAR OF MEDICAID TRANSPORTATION. PT IS NOT ELIGIBLE FOR MEDICAID TRANSPORTATION DUE TO THE FPC THAT PT WAS IN NOT "RELEASING" FOR MEDICAID TRANSPORTATION IN [facility]. LENO CALLED [facility] IN [facility], SPOKE TO LENA WHO REPORTS SHE WILL COMPLETE AND FAX THE FORM 702 THAT WAS NOT COMPLETED AND FAX TO MEDICAID TODAY. PT SHOULD BE ABLE TO GO TO HIS LOCAL [facility] OFFICE AND GET THE TRANSPORTATION VENDOR ASSIGNED AGAIN. LENO NOTIFIED BEAR AT MEDICAID TRANSPORTATION WHO ADVISED THAT PT MUST HAVE HIS LOCAL [facility] OFFICE MAKE THE ASSIGNMENT TO [facility] TRANSPORT PROVIDER, PT SHOULD THEN BE ELIGIBLE AGAIN FOR MEDICAID TRANSPORT SERVICES. CM NOTIFIED PT THAT HE IS NOT ELIGIBLE FOR MEDICAID TRANSPORTATION AND PROVIDED WRITTEN INSTRUCTIONS TO CONTACT HIS LOCAL [facility] OFFICE ([facility]AN [facility]) AND REQUEST THE ASSIGNMENT TO [facility], CM ADVISED THAT PT WILL HAVE TO HAVE FAMILY OR A FRIEND TO TRANSPORT HOME. Jeff Christopher, CASE MANAGEMENT DCP- Discharge Planning Updated by [id number]: Jeff Christopher on 07/10/19 3:[address] Patient Name: ODETTE OH Admission Status: ER Accout number: [id number] Admission Date: 07-10-2019 : 1960 Admission Diagnosis: Attending: Leona Alcantar Current LOS: 1 Anticipated DC Date: Planned Disposition: Home Primary Insurance: MEDICAID [place] Discharge Planning Comments: CM MET WITH PT IN ROOM TO DISCUSS DISCHARGE PLANNING AND NEEDS. PT REPORTS LIVING AT HOME INDEPENDENTLY WITH 6 OTHER FAMILY MEMBERS. PT REPORTS NO ONE HAS A JOB AND HE IS HAVING TO PAY THE BILLS AT THE HOUSE. PT HAS A CANE WITH NO MEDICAL EQUIPMENT PROVIDER PREFERENCE. PT HAS NO OUTSIDE SERVICES ASSISTING IN THE HOME. PT IS SUPPOSED TO GO TO [facility] EMERGENCY ROOM FOR DIALYSIS BUT REPORTS HE IS NOT ABLE TO AFFORD THE $25 PER TRIP THAT THE "[facility]" BUS CHARGES TO GET TO AND FROM [place]. PT REPORTS HE HAS OTHER BILLS TO PAY. PT REPORTS HAVING TROUBLE FINDING FAMILY OR FRIENDS TO GET HIM TO AND FROM DIALYSIS. CM DISCUSSED AVAILABILITY OF HOME HEALTH, REHAB SERVICES AND MEDICAL EQUIPMENT. PT DENIES DISCHARGE NEEDS, REPORTS THAT CM CAN CALL [facility] (MEDICAID BUS) AND IF THEY WILL NOT CHARGE HIM, THEY CAN PICK HIM UP. OTHERWISE HE WILL HAVE TO TRY TO FIND "SOMEONE" TO PICK HIM UP AT DISCHARGE. PT PLANS TO DISCHARGE HOME WITH SIX OTHER FAMILY MEMBERS LIVING IN THE HOUSE. PT WOULD LIKE CM TO ARRANGE MEDICAID TRANSPORT FOR DISCHARGE HOME IF THEY WILL NOT CHARGE HIM $25 FOR THE TRIP. IF THERE IS A FEE, PT WILL NEED TO CALL FAMILY TO TRY TO GET A RIDE HOME AT DISCHARGE. CM TO FOLLOW AND ASSIST NEEDED. Mail Processor: Jeff Christopher DCPIA - Discharge Planning Initial Assessment Updated by [id number]: Jeff Christopher on 07/10/19 4:38 pm * Is the patient Alert and Oriented? Yes * How many steps to enter\\exit or inside your home? NONE * PCP NONE * Pharmacy [facility] IN [place] * Preadmission Environment Home with Family * ADLs Independent * Equipment Cane * Other Equipment NO MEDICAL EQUIPMENT PROVIDER PREFERENCE * List name and contact numbers for known caregivers / representatives who currently or will assist patient after discharge: PEYTON [place], DTR, * Verbal permission to speak to the caregivers and representatives has been obtained from the patient. N/A * Community resources currently utilized Other * Please name any agencies selected above. OUTPATIENT DIALYSIS AT [facility] EMERG[facility] ROOM IN [facility] * Additional services required to return to the preadmission environment? No * Can the patient safely return to the preadmission environment? Yes * Has this patient been hospitalized within the prior 30 days at any hospital? Yes Last DP export: 07/14/19 2:35 Patient Name: ODETTE OH Page 25540 at 1544 All edits/amendments must be made on the electronic document DICTATION DATE: 07/14/19 154 MATERIAL SPREADER: LUH 07/14/19 1544 RPT#: [id number] DC DATE:07/12/19 STATUS: DIS IN [facility] [address] [place] [address] END OF REPORT
== END 2019-07-12 14:32 | disposition home or self-care (01) | DRG 314 ==
LOC: D.ER 21:31 → D.M2 23:13 → OBSVTIME 23:13 → D.M2 07-10 15:07
PROVIDERS: Family Medicine; General Practice; ADMIT Internal Medicine Nephrology; ATTEND Internal Medicine Nephrology
PROC: 5A1D70Z Performance of Urinary Filtration, Intermittent, Less than 6 Hours Per Day (ICD-10-PCS; 2019-07-10)
PROC: B51N1ZZ Fluoroscopy of Left Upper Extremity Veins using Low Osmolar Contrast (ICD-10-PCS; principal; 2019-07-11 13:45)
DX: T82.856A Stenosis of peripheral vascular stent, initial encounter (principal); N18.6 End stage renal disease; I12.0 Hypertensive chronic kidney disease with stage 5 chronic kidney disease or end stage renal disease; E87.5 Hyperkalemia; D63.1 Anemia in chronic kidney disease; F19.10 Other psychoactive substance abuse, uncomplicated; Y83.9 Surgical procedure, unspecified as the cause of abnormal reaction of the patient, or of later complication, without mention of misadventure at the time of the procedure

== ENCOUNTER 2019-07-17 22:28 | Emergency (ER) | payer MEDICAID ==
[~2019-07-17] VITALS: Ht 177.8 cm; Wt 75.0 kg
[2019-07-17 22:29] VITALS: Ht 177.8 cm; Wt 75.0 kg
[2019-07-18 00:46] LABS: BASOPHILS 0 % (0-2); EOSINOPHILS 0.1 % (0-7); HEMATOCRIT 32.8 % (42.0-54.0); HEMOGLOBIN 10.6 g/dL (13.5-17.5); IMMATURE GRANULOCYTES 0.6 % (0-5); MCH 30.7 pg (26.0-34.0); MCHC 32.3 g/dL (31.0-37.0); MCV 95.1 fL (80.0-100.0); MEAN PLATELET VOLUME 10.2 fL (7.4-10.4); MONOCYTES 12.9 % (2-11); NEUTROPHILS 74.4 % (40-80); PLATELET COUNT 129 10x3/uL (130-400); RBC 3.45 10x6/uL (4.20-6.10); RDW 19.1 % (11.5-14.5); WBC 9.1 10x3/uL (4.8-10.8)
[2019-07-18 00:54] LABS: CALC OSMOLALITY 313 mosm/kg (275-300); CALCIUM 7.3 mg/dL (8.5-10.1); CARBON DIOXIDE 22.7 mmol/L (21.0-32.0); CHLORIDE - SERUM 102 mmol/L (98-107); CREATININE - SERUM 13.9 mg/dL (0.6-1.3); GLUCOSE 83 mg/dL (74-106); POTASSIUM - SERUM 5.5 mmol/L (3.5-5.1); SODIUM 140 mmol/L (136-145); UREA NITROGEN 113 mg/dL (7-18); eGFR NON AFRICAN AMERICAN 4 mL/min (90-120)
[2019-07-18 00:57] LABS: APTT 38.3 SECONDS (22.8-39.4); INR 1.3 (0.85-1.17); PROTIME 15.7 SECONDS (11.6-15.0)
[2019-07-18 01:16] LABS: ALBUMIN 3.1 g/dL (3.4-5.0); ALKALINE PHOSPHATASE 110 U/L (46-116); ALT (SGPT) 47 U/L (10-68); BILIRUBIN - TOTAL 0.64 mg/dL (0.2-1.3); CKMB 6.7 U/L (0.0-3.6); CREATINE KINASE 237 UL (21-232); MAGNESIUM - SERUM 2.8 mg/dL (1.8-2.4); PROTEIN - SERUM 8.5 g/dL (6.4-8.2)
[2019-07-18 01:17] LABS: TROPONIN-I 0.275 ng/mL (0.000-0.060)
[2019-07-18 02:35] LABS: APPEARANCE CLEAR (CLEAR); BILIRUBIN NEGATIVE (NEGATIVE); COLOR YELLOW (YELLOW); GLUCOSE 250 mg/dL (NEGATIVE); KETONE NEGATIVE (NEGATIVE); NITRITE NEGATIVE (NEGATIVE); PROTEIN 3+ mg/dL (NEGATIVE); SPECIFIC GRAVITY 1.005 (1.005-1.020); UROBILINOGEN NORMAL (NORMAL)
[2019-07-18 02:36] LABS: BACTERIA FEW /hpf (NEGATIVE); EPITHELIAL CELLS 0-5 /hpf (0-5); UDS - AMPHET NEGATIVE QUAL (NEGATIVE); UDS - BARB NEGATIVE QUAL (NEGATIVE); UDS - BENZO NEGATIVE QUAL (NEGATIVE); UDS - COCAINE POSITIVE QUAL (NEGATIVE); UDS - OPIATE NEGATIVE QUAL (NEGATIVE); UDS - PCP NEGATIVE QUAL (NEGATIVE); UDS - THC NEGATIVE QUAL (NEGATIVE); WHITE CELLS - URINE 0-5 /hpf (NEGATIVE)
[2019-07-18 14:20] VITALS: BP 196/102
== END 2019-07-18 14:20 | disposition home or self-care (01) ==
LOC: D.ER 22:28
PROVIDERS: Family Medicine
DX: E11.22 Type 2 diabetes mellitus with diabetic chronic kidney disease (principal); I12.9 Hypertensive chronic kidney disease with stage 1 through stage 4 chronic kidney disease, or unspecified chronic kidney disease; N18.9 Chronic kidney disease, unspecified; N17.9 Acute kidney failure, unspecified; I50.9 Heart failure, unspecified; Z91.19 Patient's noncompliance with other medical treatment and regimen; F19.19 Other psychoactive substance abuse with unspecified psychoactive substance-induced disorder; I25.2 Old myocardial infarction; Z72.0 Tobacco use

== ENCOUNTER 2019-07-22 21:57 | Inpatient (IN) | payer MEDICAID ==
[~2019-07-22] VITALS: Ht 177.8 cm; Wt 72.6 kg
[2019-07-22 22:39] LABS: BASOPHILS 0 % (0-2); EOSINOPHILS 0.1 % (0-7); HEMATOCRIT 32.6 % (42.0-54.0); HEMOGLOBIN 10.3 g/dL (13.5-17.5); IMMATURE GRANULOCYTES 0.3 % (0-5); LYMPHOCYTES 13.5 % (15-50); MCHC 31.6 g/dL (31.0-37.0); MONOCYTES 7.6 % (2-11); NEUTROPHILS 78.5 % (40-80); RBC 3.43 10x6/uL (4.20-6.10); RDW 18.9 % (11.5-14.5); WBC 7.1 10x3/uL (4.8-10.8)
[2019-07-22 22:41] LABS: PLATELET COUNT 102 10x3/uL (130-400)
[2019-07-22 22:46] LABS: APTT 27.7 SECONDS (22.8-39.4); INR 1.16 (0.85-1.17); PROTIME 14.2 SECONDS (11.6-15.0)
[2019-07-22 23:09] LABS: ALBUMIN 3.4 g/dL (3.4-5.0); ALKALINE PHOSPHATASE 102 U/L (46-116); ALT (SGPT) 33 U/L (10-68); BILIRUBIN - TOTAL 0.57 mg/dL (0.2-1.3); CALC OSMOLALITY 320 mosm/kg (275-300); CALCIUM 7.8 mg/dL (8.5-10.1); CARBON DIOXIDE 20.1 mmol/L (21.0-32.0); CHLORIDE - SERUM 101 mmol/L (98-107); CKMB 9.9 U/L (0.0-3.6); CREATINE KINASE 259 UL (21-232); CREATININE - SERUM 13.4 mg/dL (0.6-1.3); GLUCOSE 115 mg/dL (74-106); PROTEIN - SERUM 9.1 g/dL (6.4-8.2); SODIUM 139 mmol/L (136-145); UREA NITROGEN 129 mg/dL (7-18); eGFR NON AFRICAN AMERICAN 4 mL/min (90-120)
[2019-07-22 23:13] LABS: POTASSIUM - SERUM 6.4 mmol/L (3.5-5.1); PRO BNP 51003 pg/mL (0-125); TROPONIN-I 0.284 ng/mL (0.000-0.060)
[2019-07-22 23:45] VITALS: BP 210/129
[2019-07-23] VITALS (9 sets, daily range): BP systolic 108–232; BP diastolic 59–136; Ht 177.8 cm; Wt 72.6 kg
--- NOTE | 2019-07-23 | NUR ---
ATTEMPTED IV X 2 W/O SUCCESS. ESTUARDO WAYNE RN WILL ATTEMPT W/ULTRASOUND.
--- NOTE | 2019-07-23 00:32 | NUR ---
IV ATTEMPTED X 2 W/ULTRASOUND BY ESTUARDO WAYNE RN. IV PLACED W/GOOD BLOOD RETURN. IV FLUSHED BEFORE ADMIN OF LASIX AND PT C/O SEVERE PAIN. AREA NOTED TO BE SWOLLEN. DISCONTINUED IV. DR. LEMON NOTIFIED. UNABLE TO OBTAIN IV ACCESS AT THIS TIME. HE STATES TO ADMIT PT TO FLOOR AND THEY WILL HAVE TO DIALYSE PT.
--- NOTE | 2019-07-23 01:50 | NUR ---
PT ARRIVED TO FLOOR VIA STRETCHER. O2 5L 89%. INCREASED PT TO 6L HF, SPO2 94%. C/O PAIN. ELEVATED BP. RECEIVED NEW ORDERS. NO FURTHER NEEDS EXPRESSED. WILL CTM.
--- NOTE | 2019-07-23 01:50 | NUR ---
RECEIVED ORDER TO GIVE PT HOME BP MEDS FOR ELEVATED BP WHEN HE ARRIVED TO THE UNIT.
--- NOTE | 2019-07-23 09:10 | NUR ---
PT TAKEN TO DIALYSIS VIA BED.
--- NOTE | 2019-07-23 09:17 | NUR ---
SPOKE WITH DIALYSIS AND STATED TO THEM PT'S BP WAS 198/103 AND HE HAS PRN BP MEDS. IF HE NEEDS THEM CALL AND LET ME KNOW. THEY VERBALIZED UNDERSTANDING AND STATED USUALLY HIS BP WILL COME DOWN AFTER DIALYSIS.
--- NOTE | 2019-07-23 12:24 | NUR ---
PT IN A LOT OF PAIN AND NORCO 5 Q6HP NOT WORKING FOR PAIN CONTROL. PT'S BP PRN MEDS ORDERED IV BUT PT HAS NO IV ACCESS AND WE ARE UNABLE TO OBTAIN IV ACCESS. CALLED CATARINA LUZ AND SPOKE WITH HER ABOUT THIS AND SHE STATED TO CHANGED NORCO 5 Q6HP TO NORCO 10Q4HP AND DC LABETOLOL AND APRESOLINE IV AND ORDERED CLONIDINE 0.2MG Q4HP FOR SBP >170. I VERBALIZED UNDERSTANDING.
--- NOTE | 2019-07-23 12:27 | NUR ---
PT IN A LOT OF PAIN AND NORCO 5 Q6HP NOT WORKING FOR PAIN CONTROL. PT'S BP PRN MEDS ORDERED IV BUT PT HAS NO IV ACCESS AND WE ARE UNABLE TO OBTAIN IV ACCESS. CALLED CATARINA LUZ AND SPOKE WITH HER ABOUT THIS AND SHE STATED TO CHANGED NORCO 5 Q6HP TO NORCO 10Q4HP AND DC LABETOLOL AND APRESOLINE IV AND ORDERED CLONIDINE 0.2MG Q4HP FOR SBP >170. I VERBALIZED UNDERSTANDING. ALSO STATED TO CATARINA LUZ THAT ONLY SOME OF PT'S HOME MEDS AHAVE BEEN RESTARTED SHE ASKED WHAT ALL WASN'T RESTARTED. THIS NURSE READ HER OFF ALL HOME MEDS AND SHE STATES TO RESTART ALL HOME MEDS. I VERBALIZED UNDERSTANDING.
--- NOTE | 2019-07-23 13:36 | NUR ---
DIALYSIS CALLED AND STATES THEY TOOK OFF 4L.
--- NOTE | 2019-07-23 13:50 | NUR ---
PT RETURNED FROM DIALYSIS VIA BED.
--- NOTE | 2019-07-23 14:59 | NUR ---
PT'S BP NOW 143/59.
--- NOTE | 2019-07-23 15:40 | NUR ---
I have reviewed this patient and I concur with the Shift Assessment completed by the Licensed Practical Nurse today this shift.
--- NOTE | 2019-07-23 17:15 | MORECARE ---
CASE MANAGEMENT DISCHARGE SUMMARY PATIENT: ODETTE OH UNIT: [id number] ADM DATE: 07/22/19 AGE: 58 : 64 SEX: M ROOM/BED: D.2103 AUTHOR: MARUDOC PHYSICIAN: REFERRING PHYSICIAN: LEONA ALCANTAR MD DATE OF SERVICE: 07/23/19 Discharge Plan Patient Name: ODETTE OH Facility: [facility]:[place] : 1960 Planned Disposition: Home Anticipated Discharge Date: Discharge Date: Expected LOS: Initial Reviewer: [email or web address] Initial Review Date: 07/23/2019 Generated: 07/23/19 6:14 pm Comments DCP- Discharge Planning Updated by [email or web address]: Jeff Christopher on 07/23/19 4:[address] Patient Name: ODETTE OH Admission Status: ER Accout number: [id number] Admission Date: 07-22-2019 : 1960 Admission Diagnosis: Attending: Leona Alcantar Current LOS: 1 Anticipated DC Date: Planned Disposition: Home Primary Insurance: MEDICAID [place] Discharge Planning Comments: CM MET WITH PT IN ROOM TO DISCUSS DISCHARGE PLANNING AND NEEDS. PT REPORTS LIVING AT HOME INDEPENDENTLY WITH HIS AUNT. PT HAS CANE WITH NO MEDICAL EQUIPMENT PROVIDER PREFERENCE. PT HAS NO OUTSIDE SERVICES ASSISTING IN THE HOME. PT CANNOT GET TO DIALYSIS HIS MEDICAID TRANSPORT SERVICE HAS NOT BEEN FIXED AND PT REPORTS HIS DAUGHTER, PEYTON, HAS BEEN TRYING TO GET IT STARTED BACK UP. PT DOES NOT LIKE [facility] AND DOES NOT GO THERE FOR DIALYSIS. CM DISCUSSED AVAILABILITY OF HOME HEALTH, REHAB SERVICES AND MEDICAL EQUIPMENT. PT DENIES DISCHARGE NEEDS, REPORTS HIS DAUGHTER WILL ARRANGE SOMEONE TO PICK HIM UP FOR DISCHARGE HOME. Sheet Metal Worker Maintenance: Jeff Christopher DCPIA - Discharge Planning Initial Assessment Updated by [id number]: Jeff Christopher on 07/23/19 5:07 pm * Is the patient Alert and Oriented? Yes * How many steps to enter\exit or inside your home? NONE * PCP NONE * Pharmacy [facility] IN [place] * Preadmission Environment Home with Family * ADLs Independent * Equipment Cane * Other Equipment NO MEDICAL EQUIPMENT PROVIDER PREFERENCE * List name and contact numbers for known caregivers / representatives who currently or will assist patient after discharge: PEYTON OH DTR, * Verbal permission to speak to the caregivers and representatives has been obtained from the patient. N/A * Community resources currently utilized Other * Please name any agencies selected above. DIALYSIS, [facility] * Additional services required to return to the preadmission environment? No * Can the patient safely return to the preadmission environment? Yes * Has this patient been hospitalized within the prior 30 days at any hospital? Yes Patient Name: ODETTE OH Page 51077 at 1715 All edits/amendments must be made on the electronic document DICTATION DATE: 07/23/191713 SOCIAL SECRETARY: LUH 07/23/191713 RPT#: [id number] DC DATE: STATUS: ADM IN [facility] [address] [place] [address] END OF REPORT
--- NOTE | 2019-07-23 17:30 | NUR ---
PT HAS NOT URINATED TODAY. GAVE PT URINE SPECIMEN CUP AND STATED WHENEVER HE NEEDS TO URINATE TO USE SPECIMEN CUP AND USE CALL LIGHT TO LET KNOW HE HAS AND WE(NURSE OR SENIOR QA AUTOMATION ENGINEER) WILL COLLECT IT. PT VERBALIZED UNDERSTANDING.
--- NOTE | 2019-07-23 19:00 | NUR ---
EVENING ROUNDS COMPLETE, PT SITTING UP IN BED, NO SIGNS OF DISTRESS. PT DENIES ANY NEEDS AT THIS TIME. ASKS WHEN HE CAN HAVE HIS PAIN PILL AGAIN. EXPLAINED IT WAS JUST GIVEN AT 1800. PT VOICED UNDERSTANDING. AAOX4. CL IN REACH, BED IN LOWEST POSITION.
[2019-07-24] VITALS: BP 172/58
[2019-07-24 04:00] VITALS: BP 141/85
[2019-07-24 06:38] LABS: BASOPHILS 0 % (0-2); EOSINOPHILS 0 % (0-7); HEMATOCRIT 27.2 % (42.0-54.0); HEMOGLOBIN 8.3 g/dL (13.5-17.5); IMMATURE GRANULOCYTES 0.2 % (0-5); LYMPHOCYTES 16.7 % (15-50); MCH 29.3 pg (26.0-34.0); MCHC 30.5 g/dL (31.0-37.0); MCV 96.1 fL (80.0-100.0); MEAN PLATELET VOLUME 9.7 fL (7.4-10.4); MONOCYTES 6.7 % (2-11); NEUTROPHILS 76.4 % (40-80); PLATELET COUNT 100 10x3/uL (130-400); RBC 2.83 10x6/uL (4.20-6.10); RDW 19.1 % (11.5-14.5)
[2019-07-24 06:45] LABS: WBC 4.9 10x3/uL (4.8-10.8)
[2019-07-24 07:04] LABS: ANION GAP 19.1 mmol/L (8-16); CALCIUM 7.7 mg/dL (8.5-10.1); CARBON DIOXIDE 24.2 mmol/L (21.0-32.0)
[2019-07-24 07:06] LABS: POTASSIUM - SERUM 5.3 mmol/L (3.5-5.1)
--- NOTE | 2019-07-24 07:30 | NUR ---
RESTING WITH EYES CLOSED. AWAKENS TO NAME AND IS ORIENTED X 4. DENIES ANY NEEDS AT PRESENT TIME WITH NO REQUESTS VOICED. ASSESSMENT COMPLETED AND WILL CONTINUE POC. PT IS TO GO TO DIALYSIS THIS AM. CALL LIGHT IN REACH.
--- NOTE | 2019-07-24 10:14 | NUR ---
URINE IN URINAL SENT TO LAB ORDERED.
[2019-07-24 10:28] LABS: UDS - AMPHET NEGATIVE QUAL (NEGATIVE); UDS - BARB NEGATIVE QUAL (NEGATIVE); UDS - BENZO NEGATIVE QUAL (NEGATIVE); UDS - COCAINE POSITIVE QUAL (NEGATIVE); UDS - OPIATE POSITIVE QUAL (NEGATIVE); UDS - PCP NEGATIVE QUAL (NEGATIVE); UDS - THC NEGATIVE QUAL (NEGATIVE)
[2019-07-24 10:29] LABS: APPEARANCE HAZY (CLEAR); BILIRUBIN NEGATIVE (NEGATIVE); COLOR YELLOW (YELLOW); GLUCOSE 100 mg/dL (NEGATIVE); KETONE NEGATIVE (NEGATIVE); NITRITE NEGATIVE (NEGATIVE); PROTEIN 3+ mg/dL (NEGATIVE); UROBILINOGEN NORMAL (NORMAL)
[2019-07-24 10:30] LABS: BACTERIA FEW /hpf (NEGATIVE); EPITHELIAL CELLS 0-5 /hpf (0-5); RED CELLS - URINE 0-5 /hpf (0-5); WHITE CELLS - URINE 0-5 /hpf (NEGATIVE)
[2019-07-24 10:57] VITALS: BP 171/70
--- NOTE | 2019-07-24 17:35 | NUR ---
PT C/O CHEST PAIN B/P 145/115 73 16 93%. CONTACTED [facility] AND ORDER RECEIVED TO GIVE 2100 B/P MEDS NOW
--- NOTE | 2019-07-24 18:28 | NUR ---
REVIEWED ASSESSMENT BY PERSONNEL CONSULTANT AND I CONCUR
[2019-07-24 18:32] VITALS: BP 142/115
--- NOTE | 2019-07-24 19:17 | NUR ---
EVENING ROUNDS COMPLETE, PT SITTING UP IN BED, AAOX4. NO SIGNS OF DISTRESS. PT DENIES ANY PAIN OR NEEDS AT THIS TIME. CL IN REACH, BED IN LOWEST POSITION.
[2019-07-24 20:00] VITALS: BP 141/75
[2019-07-25 00:27] VITALS: BP 146/84
[2019-07-25 04:30] VITALS: BP 149/81
[2019-07-25 06:41] LABS: BASOPHILS 0 % (0-2); EOSINOPHILS 0.2 % (0-7); HEMATOCRIT 25.6 % (42.0-54.0); HEMOGLOBIN 7.9 g/dL (13.5-17.5); IMMATURE GRANULOCYTES 0.3 % (0-5); MCH 29.7 pg (26.0-34.0); MCHC 30.9 g/dL (31.0-37.0); MCV 96.2 fL (80.0-100.0); MEAN PLATELET VOLUME 10.1 fL (7.4-10.4); MONOCYTES 7.3 % (2-11); NEUTROPHILS 79.2 % (40-80); PLATELET COUNT 108 10x3/uL (130-400); RBC 2.66 10x6/uL (4.20-6.10); RDW 18.9 % (11.5-14.5); WBC 6.1 10x3/uL (4.8-10.8)
[2019-07-25 07:21] LABS: ANION GAP 21.3 mmol/L (8-16); CALCIUM 7.6 mg/dL (8.5-10.1); CARBON DIOXIDE 23.5 mmol/L (21.0-32.0); CREATININE - SERUM 11.8 mg/dL (0.6-1.3); POTASSIUM - SERUM 5.8 mmol/L (3.5-5.1)
[2019-07-25 07:23] LABS: PHOSPHOROUS 9.7 mg/dL (2.5-4.9)
--- NOTE | 2019-07-25 07:40 | NUR ---
REPORT RECIEVED. PT SITTING UP IN BED. CUP OF ICE GIVEN TO PT AT THIS TIME. RR EVEN AND UNLABORED ON 5.5L NC. BED LOCKED AND IN LOWEST POSITION, CALL LIGHT WITHIN REACH. WILL CTM.
[2019-07-25 08:32] VITALS: BP 152/83
[2019-07-25 11:51] VITALS: BP 163/89
--- NOTE | 2019-07-25 12:25 | NUR ---
RECEIVED NOTICE FROM BEDSIDE NURSE THAT THE DIALYSIS UNIT IS NOW SAYING THEY CAN'T GET THE PATIENT FOR ANOTHER HOUR TO AND HOUR AND A HALF BECAUSE SHE HAD PAPERWORK AND SOMETHING ELSE TO DO. ANA (DIALYSIS NURSE) WAS SPOKEN TO AROUND 0900 AND IT WAS EXPLAINED TO HER BY ELIAN BURDEN RN CM THAT THIS PATIENT IS TO RECEIVE HD AND DISCHARGE HOME AND WE NEEDED THEM TO BE FIRST. ANA STATED AT THAT TIME IT WOULD BE AN HOUR TO AN HOUR AND HALF BEFORE SHE COULD GET PATIENTS. I CALLED AND SPOKE WITH CHIRAG MILES, DIALYSIS COORDINATOR TO SEE WHO WE NEEDED TO CALL AND SPEAK TO ABOUT THIS AND SHE HAD JOSE MANUEL FERGUOSN RN OPEN TENTER OPERATOR NEXT TO HER AND I SPOKE TO HER ABOUT THIS. I WAS INSTRUCTED TO CALL HER IF WE HAVE PROBLEMS LIKE THIS IN THE FUTURE. I DID VERIFY HER NUMBER AND EXPLAINED I TRIED TO CONTACT HER LAST WEEK OVER THE SAME THING WITH PATIENTS (THIS BEING ONE OF THEM). WHEN CONVERSATION ENDED, THEY WILL BE UP CALLING FOR PATIENTS HERE SHORTLY.
--- NOTE | 2019-07-25 13:55 | NUR ---
I have reviewed this patient and I concur with the Shift Assessment completed by the Licensed Practical Nurse today this shift.
--- NOTE | 2019-07-25 22:07 | NUR ---
PT RETURNED FROM DIALYSIS ALERT AND ORIENTED X4. PT REQUESTED SANDWHICH. 2100 BP MEDS GIVEN. NO S/S OF DISTRESS AT THIS TIME. BED LOW CALL LIGHT WITHIN REACH. WILL CONTINUE TO MONITOR.
[2019-07-26] VITALS: BP 173/73
--- NOTE | 2019-07-26 02:02 | NUR ---
PT ALERT AND ORIENTED X4 RESTING IN BED. NO S/S OF DISTRESS AT THIS TIME. RR EVEN AND UNLABORED. BED LOW CALL LIGHT WITHIN REACH. WILL CONTINUE TO MONITOR.
[2019-07-26 04:33] LABS: BASOPHILS 0 % (0-2); EOSINOPHILS 0 % (0-7); HEMATOCRIT 26.7 % (42.0-54.0); HEMOGLOBIN 8.4 g/dL (13.5-17.5); IMMATURE GRANULOCYTES 0.3 % (0-5); LYMPHOCYTES 10.1 % (15-50); MCH 30.8 pg (26.0-34.0); MCHC 31.5 g/dL (31.0-37.0); MCV 97.8 fL (80.0-100.0); MEAN PLATELET VOLUME 9.8 fL (7.4-10.4); MONOCYTES 7.1 % (2-11); NEUTROPHILS 82.5 % (40-80); PLATELET COUNT 121 10x3/uL (130-400); RBC 2.73 10x6/uL (4.20-6.10); RDW 18.9 % (11.5-14.5); WBC 6.1 10x3/uL (4.8-10.8)
[2019-07-26 04:47] LABS: ANION GAP 15.2 mmol/L (8-16); CARBON DIOXIDE 28.5 mmol/L (21.0-32.0)
[2019-07-26 04:48] LABS: CREATININE - SERUM 8.3 mg/dL (0.6-1.3); POTASSIUM - SERUM 4.7 mmol/L (3.5-5.1)
--- NOTE | 2019-07-26 07:30 | NUR ---
REPORT RECIEVED. PT SITTING SEMI FOWLERS IN BED. NOT WEARING O2 BECAUSE HE HAD FORGOT TO PUT IT BACK ON. PUT 5L O2 ON PT AT THIS TIME. RR EVEN AND UNLABORED. 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 BED LOCKED AND IN LOWEST POSITION, CALL LIGHT WITHIN REACH. WILL CTM
[2019-07-26 08:19] VITALS: BP 187/83
--- NOTE | 2019-07-26 09:40 | MORECARE ---
CASE MANAGEMENT DISCHARGE SUMMARY PATIENT: ODETTE OH UNIT: [id number] ADM DATE: 07/22/19 AGE: 58 : 64 SEX: M ROOM/BED: D.2103 AUTHOR: MARU,DOC PHYSICIAN: REFERRING PHYSICIAN: LEONA ALCANTAR MD DATE OF SERVICE: 07/26/19 Discharge Plan Patient Name: ODETTE OH Facility: [facility]:[place] : 1960 Planned Disposition: Home Anticipated Discharge Date: Discharge Date: Expected LOS: Initial Reviewer: [email or web address] Initial Review Date: 07/23/2019 Generated: 07/26/19 10:39 am Comments DCP- Discharge Planning Updated by [email or web address]: Jeff Christopher on 07/26/19 8:[address] Patient Name: ODETTE OH Encounter No: [id number] : 1960 Primary Insurance: [place]ID [place] Anticipated DC Date: Planned Disposition: Home DCP follow-up note: CM SPOKE TO BEDSIDE NURSE WHO HAS BEEN ATTEMPTING TO REACH FAMILY TO OCCUPATIONAL THERAPY ASSISTANT PT FOR DISCHARGE HOME TODAY. CM SPOKE TO PT AND OFFERED ASSISTANCE IN CALLING FAMILY TO ARRANGE TRANSPORTATION HOME. PT STATES THE NURSE IS ALREADY WORKING ON IT AND HE IS NOT READY ANYWAY. CM ASKED WHY PT IS NOT READY, PT MUMBLED AND CM WAS NOT ABLE TO UNDERSTAND WHAT PT WAS SAYING. CM REVIEWED CHART FROM PAST VISITS AND CALLED [place], , THE MESSAGE REPORTS NUMBER TO BE "CURRENTLY UNAVAILABLE." CM CALLED SECOND NUMBER FOR [place], , LEFT MESSAGE ASKING FOR RETURN CALL. CM CALLED [place], , THE NUMBER IS NOT ACCEPTING CALLS.AT THIS TIME. CM CALLED PAUL LIANG, BROTHER, , PAUL REPORTS BEING AT WORK UNTIL 6PM AND IS NOT ABLE TO OCCUPATIONAL THERAPY ASSISTANT PT; PAUL DOES NOT KNOW CONTACT NUMBERS FOR PT'S DAUGHTERS. CM CALLED JENNIFER LIANG, SISTER, , LEFT MESSAGE ASKING FOR RETURN CALL. CM NOTIFIED BY FILLING TECHNICIAN THAT PT'S OXYGEN IS 67% ON ROOM AIR. CM NOTIFIED RENAL NURSE PRACTITIONER HODA SKINNER WHO WILL ORDER CHEST XRAY, ABG'S ORDERED BY QLIKVIEW DEVELOPER NURSE. CM NOTIFIED PT OF UPDATE ON TESTING AND OF UNSUCCESSFUL EFFORTS TO SPEAK TO FAMILY. PT DID NOT OPEN HIS EYES AND REPORTS PEYTON DOES NOT GET UP UNTIL 10AM ANYWAY. CM WAS NOT ABLE TO REACH FAMILY THAT WILL OCCUPATIONAL THERAPY ASSISTANT PT. CM WAITING ON RETURN CALLS FROM [place] OH, DAUGHTER, [phone] & [phone] AND JENNIFER LIANG, SISTER, . CM WAS NOT ABLE TO LEAVE MESSAGE FOR [place] NATHAN, . Jeff Christopher, CASE MANAGEMENT DCP- Discharge Planning Updated by [email or web address]: Jeff Christopher on 07/23/19 4:[address] Patient Name: ODETTE OH Admission Status: ER Accout number: [id number] Admission Date: 07-22-2019 : 1960 Admission Diagnosis: Attending: Leona Alcantar Current LOS: 1 Anticipated DC Date: Planned Disposition: Home Primary Insurance: [place]ID [place] Discharge Planning Comments: CM MET WITH PT IN ROOM TO DISCUSS DISCHARGE PLANNING AND NEEDS. PT REPORTS LIVING AT HOME INDEPENDENTLY WITH HIS AUNT. PT HAS CANE WITH NO MEDICAL EQUIPMENT PROVIDER PREFERENCE. PT HAS NO OUTSIDE SERVICES ASSISTING IN THE HOME. PT CANNOT GET TO DIALYSIS HIS MEDICAID TRANSPORT SERVICE HAS NOT BEEN FIXED AND PT REPORTS HIS DAUGHTER, PEYTON, HAS BEEN TRYING TO GET IT STARTED BACK UP. PT DOES NOT LIKE [facility] AND DOES NOT GO THERE FOR DIALYSIS. CM DISCUSSED AVAILABILITY OF HOME HEALTH, REHAB SERVICES AND MEDICAL EQUIPMENT. PT DENIES DISCHARGE NEEDS, REPORTS HIS DAUGHTER WILL ARRANGE SOMEONE TO PICK HIM UP FOR DISCHARGE HOME. Search Optimization Analyst: Jeff Christopher DCPIA - Discharge Planning Initial Assessment Updated by [email or web address]: Jeff Christopher on 07/23/19 5:07 pm * Is the patient Alert and Oriented? Yes * How many steps to enter\\exit or inside your home? NONE * PCP NONE * Pharmacy [facility] IN [place] * Preadmission Environment Home with Family * ADLs Independent * Equipment Cane * Other Equipment NO MEDICAL EQUIPMENT PROVIDER PREFERENCE * List name and contact numbers for known caregivers / representatives who currently or will assist patient after discharge: [place] OH DTR, * Verbal permission to speak to the caregivers and representatives has been obtained from the patient. N/A * Community resources currently utilized Other * Please name any agencies selected above. DIALYSIS, [facility], [facility] * Additional services required to return to the preadmission environment? No * Can the patient safely return to the preadmission environment? Yes * Has this patient been hospitalized within the prior 30 days at any hospital? Yes Last DP export: 07/23/19 4:15 p Patient Name: ODETTE OH Page 78419 at 0940 All edits/amendments must be made on the electronic document DICTATION DATE: 07/26/19938 MANAGER CLINICAL RESEARCH: [facility] 07/26/19938 RPT#: [id number] DC DATE: STATUS: ADM IN [facility] [address] [place] [address] END OF REPORT
--- NOTE | 2019-07-26 11:00 | NUR ---
UPON ENTERING THE ROOM PT WAS NOT WEARING HIS OXYGEN. APPLIED 3L NC ON PT AND CHECKED SAT, IT WAS 94%. DECREASED O2 TO 2L NC. WILL CTM
--- NOTE | 2019-07-26 11:35 | NUR ---
CLAUDY WITH DARREN TO SEE PATIENT. PATIENT AGAIN HAS HIS OXYGEN OFF AT THIS TIME. SHE INSTRCUTED THE PATIENT TO PLACE IT ON AGAIN AND TO LEAVE IT ON. PATIENT DID AT THIS TIME. SHE ALSO TOLD HIM THAT HE IS TO RECEIVE DIALYSIS AGAIN TODAY AND THEN DISCHARGE. SHE INSTTRUCTED FOR HIM TO GET OUT OF THE BED. SHE SAYS THE PATIENT REPORTED, "I'M GOOD". SHE SAID THAT SHE TOLD HIM "EVIDENTLY NOT YOU ARE IN THE BED".,
--- NOTE | 2019-07-26 12:15 | NUR ---
UPON ENTERING THE ROOM PT WAS NOT WEARING HIS O2. CHECKED HIS OXYGEN SAT AND IT WAS 74%. INSTRUCTED PT TO LEAVE ON OXYGEN ON. PT PUT NC BACK ON @ 3L. PT TAKEN TO DIALYSIS AT THIS TIME VIA WHEELCHAIR
[2019-07-26 12:30] VITALS: BP 157/81
--- NOTE | 2019-07-26 12:36 | NUR ---
Nutrition Follow-up: Eating well. Noted plans for possible d/c today. Diet: Renal PO intake: 100% yesterday No new wt Last recorded BM: 07/23 Labs noted: K+ 4.7, Ca 8.0, PO4 6.0 Meds noted: Pepcid, Calcitriol, Nephrovite, Phoslo -Continue current diet as tolerated. -RD following.
--- NOTE | 2019-07-26 15:21 | NUR ---
I have reviewed this patient and I concur with the Shift Assessment completed by the Licensed Practical Nurse today this shift.
--- NOTE | 2019-07-26 16:38 | NUR ---
HODA LUZ SAID OK TO DC PT HOME.
--- NOTE | 2019-07-26 16:40 | NUR ---
CALLED PTS DAUGHTER RASHID AND LEFT MESSAGE ON PHONE.
--- NOTE | 2019-07-26 16:50 | NUR ---
ABG'S ORDERED AGAIN ON ROOM AIR. I CALLED RT MAE.
[2019-07-26 17:41] VITALS: BP 169/83
--- NOTE | 2019-07-26 18:30 | NUR ---
DC PAPERWORK GONE OVER AND SIGNED WITH PT. TERESA SPAULDING VIA WHEELCHAIR TO ER LOBOTIS TO WAIT ON RIDE
--- NOTE | 2019-07-26 19:25 | MORECARE ---
CASE MANAGEMENT DISCHARGE SUMMARY PATIENT: ODETTE HO UNIT: [id number] ADM DATE: 07/22/19 AGE: 58 : 64 SEX: M ROOM/BED: D.2103 AUTHOR: MARUDOC PHYSICIAN: REFERRING PHYSICIAN: LEONA ALCANTAR MD DATE OF SERVICE: 07/26/19 Discharge Plan Patient Name: ODETTE OH [facility] [facility] 1960 Planned Disposition: Home Anticipated Discharge Date: Discharge Date: 07/26/2019 Expected LOS: Initial Reviewer: [email or web address] Initial Review Date: 07/23/2019 Generated: 07/26/19 8:25 pm Comments DCP- Discharge Planning Updated by [email or web address]: Anna Carrera on 07/26/19 6:[address] Order received for home oxygen with portability. CM met with patient to discuss the home oxygen. He began raising his voice and cussing, stating noone told him he needed oxygen. Tried to explain that the blood test he just had drawn showed he needed Oxygen. He began yelling and cussing again. CM left the room and returned with security. Patient much calmer this visit and he signed the right of choice form for [facility] to be his oxygen provider. CM faxed records to [facility], spoke to Zuhair with [facility], approx 30 min later delivery of portable oxygen was delivered to his room and the patient was taken to the ER waiting room to find a ride home. While he was in the ER he became loud and cussing again. [facility]. Patient got on his cell phone and called his cousin to come pick him up. Patient continuously refused to put his oxygen on and wanted to go outside to smoke. Informed his this was a smoke free facility and also educated him on the danger of smoking with oxygen. He said he knew all of that. CM asked multiple times to put his oxygen on and he continued to refuse to put it one. He stated his cousin lived here in [place] and would be here shortly to get him. He denied the need for assistance to get himself or the oxygen tank in the car. Anna Carrera RN, [facility] DCP- Discharge Planning Updated by [email or web address]: Jeff Christopher on 07/26/19 8:[address] Patient Name: ODETTE OH Encounter No: [id number] : 1960 Primary Insurance: MEDICAID [facility] DC Date: Planned Disposition: Home DCP follow-up note: CM SPOKE TO BEDSIDE NURSE WHO HAS BEEN ATTEMPTING TO REACH FAMILY TO PRODUCT APPLICATIONS SCIENTIST PT FOR DISCHARGE HOME TODAY. CM SPOKE TO PT AND OFFERED ASSISTANCE IN CALLING FAMILY TO ARRANGE TRANSPORTATION HOME. PT STATES THE NURSE IS ALREADY WORKING ON IT AND HE IS NOT READY ANYWAY. CM ASKED WHY PT IS NOT READY, PT MUMBLED AND CM WAS NOT ABLE TO UNDERSTAND WHAT PT WAS SAYING. CM REVIEWED CHART FROM PAST VISITS AND CALLED [place], , THE MESSAGE REPORTS NUMBER TO BE "CURRENTLY UNAVAILABLE." CM CALLED SECOND NUMBER FOR [place], , LEFT MESSAGE ASKING FOR RETURN CALL. CM CALLED [place], , THE NUMBER IS NOT ACCEPTING CALLS.AT THIS TIME. CM CALLED PAUL LIANG, BROTHER, , PAUL REPORTS BEING AT WORK UNTIL 6PM AND IS NOT ABLE TO PRODUCT APPLICATIONS SCIENTIST PT; PAUL DOES NOT KNOW CONTACT NUMBERS FOR PT'S DAUGHTERS. CM CALLED JENNIFER LIANG, SISTER, , LEFT MESSAGE ASKING FOR RETURN CALL. CM NOTIFIED BY PIANO MAKER THAT PT'S OXYGEN IS 67% ON ROOM AIR. CM NOTIFIED RENAL NURSE PRACTITIONER HODA SKINNER WHO WILL ORDER CHEST XRAY, ABG'S ORDERED BY SUPERVISOR COLOR MAKING NURSE. CM NOTIFIED PT OF UPDATE ON TESTING AND OF UNSUCCESSFUL EFFORTS TO SPEAK TO FAMILY. PT DID NOT OPEN HIS EYES AND REPORTS [facility] DOES NOT GET UP UNTIL 10AM ANYWAY. CM WAS NOT ABLE TO REACH FAMILY THAT WILL PRODUCT APPLICATIONS SCIENTIST PT. CM WAITING ON RETURN CALLS FROM [place], DAUGHTER, [phone] & [phone] AND JENNIFER LIANG, SISTER, . CM WAS NOT ABLE TO LEAVE MESSAGE FOR NATHAN BROWNLEE, . Jeff Christopher, CASE MANAGEMENT DCP- Discharge Planning Updated by [id number]: Jeff Christopher on 07/23/19 4:[address] Patient Name: ODETTE OH Admission Status: ER Accout number: [id number] Admission Date: 07-22-2019 : 1960 Admission Diagnosis: Attending: Leona Alcantar Current LOS: 1 Anticipated DC Date: Planned Disposition: Home Primary Insurance: MEDICAID [place] Discharge Planning Comments: CM MET WITH PT IN ROOM TO DISCUSS DISCHARGE PLANNING AND NEEDS. PT REPORTS LIVING AT HOME INDEPENDENTLY WITH HIS AUNT. PT HAS CANE WITH NO MEDICAL EQUIPMENT PROVIDER PREFERENCE. PT HAS NO OUTSIDE SERVICES ASSISTING IN THE HOME. PT CANNOT GET TO DIALYSIS HIS MEDICAID TRANSPORT SERVICE HAS NOT BEEN FIXED AND PT REPORTS HIS DAUGHTER, PEYTON, HAS BEEN TRYING TO GET IT STARTED BACK UP. PT DOES NOT LIKE [facility] AND DOES NOT GO THERE FOR DIALYSIS. CM DISCUSSED AVAILABILITY OF HOME HEALTH, REHAB SERVICES AND MEDICAL EQUIPMENT. PT DENIES DISCHARGE NEEDS, REPORTS HIS DAUGHTER WILL ARRANGE SOMEONE TO PICK HIM UP FOR DISCHARGE HOME. Threader: Jeff Christopher DCPIA - Discharge Planning Initial Assessment Updated by [id number]: Jeff Christopher on 07/23/19 5:07 pm * Is the patient Alert and Oriented? Yes * How many steps to enter\\exit or inside your home? NONE * PCP NONE * Pharmacy [facility] IN [place] * Preadmission Environment Home with Family * ADLs Independent * Equipment Cane * Other Equipment NO MEDICAL EQUIPMENT PROVIDER PREFERENCE * List name and contact numbers for known caregivers / representatives who currently or will assist patient after discharge: [place] DTR, * Verbal permission to speak to the caregivers and representatives has been obtained from the patient. N/A * Community resources currently utilized Other * Please name any agencies selected above. DIALYSIS, [facility]OM, M & F * Additional services required to return to the preadmission environment? No * Can the patient safely return to the preadmission environment? Yes * Has this patient been hospitalized within the prior 30 days at any hospital? Yes Last DP export: 07/26/19 8:40 Patient Name: ODETTE OH Page 29880 at 1924 All edits/amendments must be made on the electronic document DICTATION DATE: 07/26/191924 PACKING MACHINE CAN FEEDER: [facility] 07/26/191924 RPT#: [id number] DC DATE:07/26/19 STATUS: DIS IN [facility] [address] [place] [address] END OF REPORT
--- NOTE | 2019-07-26 19:32 | MORECARE ---
CASE MANAGEMENT DISCHARGE SUMMARY PATIENT: ODETTE OH UNIT: [id number] ADM DATE: 07/22/19 AGE: 58 : 64 SEX: M ROOM/BED: D.2103 AUTHOR: MARUDOC PHYSICIAN: REFERRING PHYSICIAN: LEONA ALCANTAR MD DATE OF SERVICE: 07/26/19 Discharge Plan Patient Name: ODETTE OH [facility] [facility] 1960 Planned Disposition: Home Anticipated Discharge Date: Discharge Date: 07/26/2019 Expected LOS: Initial Reviewer: [email or web address] Initial Review Date: 07/23/2019 Generated: 07/26/19 8:31 pm Comments DCP- Discharge Planning Updated by [email or web address]: Anna Carrera on 07/26/19 6:[address] Patients ride picked patient up at the front of the ER exit. Oxygen was placed in patient's car by his cousin. community development officer assisted patient to the car. Anna Carrera RN, [facility] DCP- Discharge Planning Updated by [email or web address]: Anna Carrera on 07/26/19 6:[address] Order received for home oxygen with portability. LENO met with patient to discuss the home oxygen. He began raising his voice and cussing, stating noone told him he needed oxygen. Tried to explain that the blood test he just had drawn showed he needed Oxygen. He began yelling and cussing again. CM left the room and returned with security. Patient much calmer this visit and he signed the right of choice form for [facility] to be his oxygen provider. LENO faxed records to [facility], spoke to Zuhair with [facility], approx 30 min later delivery of portable oxygen was delivered to his room and the patient was taken to the ER waiting room to find a ride home. While he was in the ER he became loud and cussing again. [facility] and [facility] officers presented to the ER. Patient got on his cell phone and called his cousin to come pick him up. Patient continuously refused to put his oxygen on and wanted to go outside to smoke. Informed his this was a smoke free facility and also educated him on the danger of smoking with oxygen. He said he knew all of that. CM asked multiple times to put his oxygen on and he continued to refuse to put it one. He stated his cousin lived here in [place] and would be here shortly to get him. He denied the need for assistance to get himself or the oxygen tank in the car. Anna Carrera RN, [facility] DCP- Discharge Planning Updated by [email or web address]: Jeff Candi on 07/26/19 8:[address] Patient Name: ODETTE OH Encounter No: [id number] : 1960 Primary Insurance: MEDICAID [facility] Date: Planned Disposition: Home DCP follow-up note: CM SPOKE TO BEDSIDE NURSE WHO HAS BEEN ATTEMPTING TO REACH FAMILY TO CLAIMS PROCESSOR PT FOR DISCHARGE HOME TODAY. CM SPOKE TO PT AND OFFERED ASSISTANCE IN CALLING FAMILY TO ARRANGE TRANSPORTATION HOME. PT STATES THE NURSE IS ALREADY WORKING ON IT AND HE IS NOT READY ANYWAY. CM ASKED WHY PT IS NOT READY, PT MUMBLED AND CM WAS NOT ABLE TO UNDERSTAND WHAT PT WAS SAYING. CM REVIEWED CHART FROM PAST VISITS AND CALLED [place], , THE MESSAGE REPORTS NUMBER TO BE "CURRENTLY UNAVAILABLE." CM CALLED SECOND NUMBER FOR [place], , LEFT MESSAGE ASKING FOR RETURN CALL. CM CALLED [place], , THE NUMBER IS NOT ACCEPTING CALLS.AT THIS TIME. CM CALLED PAUL LIANG, BROTHER, , PAUL REPORTS BEING AT WORK UNTIL 6PM AND IS NOT ABLE TO CLAIMS PROCESSOR PT; PAUL DOES NOT KNOW CONTACT NUMBERS FOR PT'S DAUGHTERS. CM CALLED JENNIFER LIANG, SISTER, , LEFT MESSAGE ASKING FOR RETURN CALL. CM NOTIFIED BY MEDICAL INTERPRETER THAT PT'S OXYGEN IS 67% ON ROOM AIR. CM NOTIFIED RENAL NURSE PRACTITIONER HODA SKINNER WHO WILL ORDER CHEST XRAY, ABG'S ORDERED BY BAG SEALER NURSE. CM NOTIFIED PT OF UPDATE ON TESTING AND OF UNSUCCESSFUL EFFORTS TO SPEAK TO FAMILY. PT DID NOT OPEN HIS EYES AND REPORTS [facility] DOES NOT GET UP UNTIL 10AM ANYWAY. CM WAS NOT ABLE TO REACH FAMILY THAT WILL CLAIMS PROCESSOR PT. CM WAITING ON RETURN CALLS FROM [place] OH, DAUGHTER, [phone] & [phone] AND JENNIFER LIANG, SISTER, . CM WAS NOT ABLE TO LEAVE MESSAGE FOR TIA NATHAN OH, . Jeff Christopher, CASE MANAGEMENT DCP- Discharge Planning Updated by [id number]: Jeff Christopher on 07/23/19 4:[address] Patient Name: ODETTE OH Admission Status: ER Accout number: [id number] Admission Date: 07-22-2019 : 1960 Admission Diagnosis: Attending: Leona Alcantar Current LOS: 1 Anticipated DC Date: Planned Disposition: Home Primary Insurance: MEDICAID [place] Discharge Planning Comments: CM MET WITH PT IN ROOM TO DISCUSS DISCHARGE PLANNING AND NEEDS. PT REPORTS LIVING AT HOME INDEPENDENTLY WITH HIS AUNT. PT HAS CANE WITH NO MEDICAL EQUIPMENT PROVIDER PREFERENCE. PT HAS NO OUTSIDE SERVICES ASSISTING IN THE HOME. PT CANNOT GET TO DIALYSIS HIS MEDICAID TRANSPORT SERVICE HAS NOT BEEN FIXED AND PT REPORTS HIS DAUGHTER, PEYTON, HAS BEEN TRYING TO GET IT STARTED BACK UP. PT DOES NOT LIKE [facility] AND DOES NOT GO THERE FOR DIALYSIS. CM DISCUSSED AVAILABILITY OF HOME HEALTH, REHAB SERVICES AND MEDICAL EQUIPMENT. PT DENIES DISCHARGE NEEDS, REPORTS HIS DAUGHTER WILL ARRANGE SOMEONE TO PICK HIM UP FOR DISCHARGE HOME. Linoleum Tile Layer: Jeff Christopher DCPIA - Discharge Planning Initial Assessment Updated by [email or web address]: Jeff Christopher on 07/23/19 5:07 pm * Is the patient Alert and Oriented? Yes * How many steps to enter\\exit or inside your home? NONE * PCP NONE * Pharmacy [facility] IN [place] * Preadmission Environment Home with Family * ADLs Independent * Equipment Cane * Other Equipment NO MEDICAL EQUIPMENT PROVIDER PREFERENCE * List name and contact numbers for known caregivers / representatives who currently or will assist patient after discharge: [place] DTR, * Verbal permission to speak to the caregivers and representatives has been obtained from the patient. N/A * Community resources currently utilized Other * Please name any agencies selected above. DIALYSIS, [facility], [facility] * Additional services required to return to the preadmission environment? No * Can the patient safely return to the preadmission environment? Yes * Has this patient been hospitalized within the prior 30 days at any hospital? Yes Last DP export: 07/26/19 6:25 Patient Name: ODETTE OH Page 17179 at 1932 All edits/amendments must be made on the electronic document DICTATION DATE: 07/26/191930 FORKLIFT MECHANIC: [facility] 07/26/191930 RPT#: [id number] DC DATE:07/26/19 STATUS: DIS IN [facility] [address] [place] [address] END OF REPORT
--- NOTE | 2019-07-27 07:20 | NUR ---
07-26-19 @ 1915. UPON ENTERING THE ROOM TO WHEEL THE PT TO THE ER WAITING ROOM TO WAIT ON HIS RIDE. PT THREW OFF HIS OXYGEN AND REFUSED TO WEAR IT. HE STATED HE WAS GOING TO CALL THE AMBLANCE TO TAKE HIM TO ANOTHER HOSPITAL. SECURITY WAS ALREADY PRESENT AND GOT PT TO GET INTO WHEELCHAIR. ONCE IN THE ER WAITING ROOM, PT REFUSED TO GET OUT OF WHEELCHAIR SAYING HE NEEDED IT TO GET BACK AND FOURTH FROM THE BATHROOM. HE THEN GOT LOUD AND CALLED MYSELF A BITCH AND CURSED US UP AND DOWN. NATALEE RENTERIA WAS CALLED.
== END 2019-07-26 19:11 | disposition home or self-care (01) | DRG 291 ==
LOC: D.ER 21:57 → D.M2 23:34
PROVIDERS: Emergency Medicine; ADMIT Internal Medicine Nephrology; ATTEND Internal Medicine Nephrology
PROC: 5A1D70Z Performance of Urinary Filtration, Intermittent, Less than 6 Hours Per Day (ICD-10-PCS; principal; 2019-07-23)
DX: I13.2 Hypertensive heart and chronic kidney disease with heart failure and with stage 5 chronic kidney disease, or end stage renal disease (principal); J81.0 Acute pulmonary edema; N18.6 End stage renal disease; I50.23 Acute on chronic systolic (congestive) heart failure; Z99.2 Dependence on renal dialysis; Z91.15 Patient's noncompliance with renal dialysis; E87.5 Hyperkalemia; F19.10 Other psychoactive substance abuse, uncomplicated; D63.1 Anemia in chronic kidney disease; I16.0 Hypertensive urgency; E83.39 Other disorders of phosphorus metabolism; I25.10 Atherosclerotic heart disease of native coronary artery without angina pectoris; E11.22 Type 2 diabetes mellitus with diabetic chronic kidney disease; Z72.0 Tobacco use

== ENCOUNTER 2019-07-31 04:41 | Emergency (ER) | payer MEDICAID ==
[~2019-07-31] VITALS: Ht 177.8 cm; Wt 72.7 kg
[2019-07-31 04:44] VITALS: Ht 177.8 cm; Wt 72.7 kg
[2019-07-31 05:19] LABS: BASOPHILS 0.1 % (0-2); EOSINOPHILS 0.1 % (0-7); IMMATURE GRANULOCYTES 0.4 % (0-5); LYMPHOCYTES 14.1 % (15-50); MCV 96.7 fL (80.0-100.0); MEAN PLATELET VOLUME 8.8 fL (7.4-10.4); MONOCYTES 9.6 % (2-11); NEUTROPHILS 75.7 % (40-80); PLATELET COUNT 131 10x3/uL (130-400); RDW 19.5 % (11.5-14.5); WBC 7.5 10x3/uL (4.8-10.8)
[2019-07-31 05:42] LABS: APTT 38.9 SECONDS (22.8-39.4); CALC OSMOLALITY 307 mosm/kg (275-300); CALCIUM 8.1 mg/dL (8.5-10.1); CHLORIDE - SERUM 103 mmol/L (98-107); CREATININE - SERUM 11.8 mg/dL (0.6-1.3); GLUCOSE 97 mg/dL (74-106); INR 1.24 (0.85-1.17); PROTIME 15.1 SECONDS (11.6-15.0); SODIUM 140 mmol/L (136-145); UREA NITROGEN 94 mg/dL (7-18); eGFR NON AFRICAN AMERICAN 5 mL/min (90-120)
[2019-07-31 06:02] LABS: ALBUMIN 3.2 g/dL (3.4-5.0); ALKALINE PHOSPHATASE 89 U/L (46-116); ALT (SGPT) 24 U/L (10-68); BILIRUBIN - TOTAL 0.65 mg/dL (0.2-1.3); CKMB 5.1 U/L (0.0-3.6); CREATINE KINASE 172 UL (21-232); PROTEIN - SERUM 8.3 g/dL (6.4-8.2)
[2019-07-31 06:06] LABS: TROPONIN-I 0.238 ng/mL (0.000-0.060)
[2019-07-31 07:01] LABS: PRO BNP 82214 pg/mL (0-125)
[2019-07-31 12:48] VITALS: BP 182/98
== END 2019-07-31 12:49 | disposition home or self-care (01) ==
LOC: D.ER 04:41
PROVIDERS: Family Medicine
DX: R06.02 Shortness of breath (principal); N19 Unspecified kidney failure; Z91.15 Patient's noncompliance with renal dialysis; E11.9 Type 2 diabetes mellitus without complications; I10 Essential (primary) hypertension; I25.2 Old myocardial infarction

== ENCOUNTER 2019-08-04 00:40 | Observation (INO) | payer MEDICAID ==
[~2019-08-04] VITALS: Ht 177.8 cm; Wt 75.6 kg
[2019-08-04] VITALS (8 sets, daily range): BP systolic 120–200; BP diastolic 81–128; Ht 177.8 cm; Wt 75.6 kg
[2019-08-04 01:18] LABS: BASOPHILS 0 % (0-2); EOSINOPHILS 0 % (0-7); IMMATURE GRANULOCYTES 0.3 % (0-5); LYMPHOCYTES 15.3 % (15-50); MCHC 32.1 g/dL (31.0-37.0); MCV 96.6 fL (80.0-100.0); MEAN PLATELET VOLUME 9.7 fL (7.4-10.4); MONOCYTES 10.7 % (2-11); NEUTROPHILS 73.7 % (40-80); PLATELET COUNT 112 10x3/uL (130-400); RDW 18.1 % (11.5-14.5); WBC 6.5 10x3/uL (4.8-10.8)
[2019-08-04 01:25] LABS: ANION GAP 23.1 mmol/L (8-16); CALCIUM 7.5 mg/dL (8.5-10.1); CARBON DIOXIDE 21.5 mmol/L (21.0-32.0); CREATININE - SERUM 11.8 mg/dL (0.6-1.3); POTASSIUM - SERUM 5.6 mmol/L (3.5-5.1)
[2019-08-04 01:38] LABS: ALBUMIN 3.2 g/dL (3.4-5.0); BILIRUBIN - TOTAL 0.64 mg/dL (0.2-1.3); PROTEIN - SERUM 8.4 g/dL (6.4-8.2)
--- NOTE | 2019-08-04 04:04 | NUR ---
RECEIVED REPORT FROM ER. ARRIVED TO FLOOR IN W/C. ALERT AND ORIENTED X4. UP AD LANDRY. COMPLAINS OF ACHING AND RUBBING STOMACH. MORPHINE GIVEN IN ER. LUNG SOUNDS FINE CRACKLES . ABSX4. IV TO RIGHT FA SL..
--- NOTE | 2019-08-04 09:41 | NUR ---
PT TO DIALYSIS VIA BED, NAD NOTED.
--- NOTE | 2019-08-04 13:55 | NUR ---
PT LEFT UNIT VIA WHEELCHAIR, WITH ALL BELONGINGS, NAD NOTED.
== END 2019-08-04 13:55 | disposition home or self-care (01) ==
LOC: D.ER 00:40 → D.M2 02:28 → OBSVTIME 10:59 → D.M2 13:55
PROVIDERS: Emergency Medicine; ADMIT Internal Medicine Nephrology; ATTEND Internal Medicine Nephrology
DX: I12.0 Hypertensive chronic kidney disease with stage 5 chronic kidney disease or end stage renal disease (principal); E87.5 Hyperkalemia; E87.70 Fluid overload, unspecified; R06.02 Shortness of breath; Z91.15 Patient's noncompliance with renal dialysis; Z91.14 Patient's other noncompliance with medication regimen

== ENCOUNTER 2019-08-09 14:36 | Emergency (ER) | payer MEDICAID ==
[~2019-08-09] VITALS: Ht 177.8 cm; Wt 72.7 kg
[2019-08-09 14:37] VITALS: Ht 177.8 cm; Wt 72.7 kg
[2019-08-09 16:09] LABS: BASOPHILS 0.2 % (0-2); EOSINOPHILS 0 % (0-7); HEMATOCRIT 27.8 % (42.0-54.0); HEMOGLOBIN 9.1 g/dL (13.5-17.5); IMMATURE GRANULOCYTES 0.9 % (0-5); LYMPHOCYTES 14.7 % (15-50); MCH 31.4 pg (26.0-34.0); MCHC 32.7 g/dL (31.0-37.0); MCV 95.9 fL (80.0-100.0); MEAN PLATELET VOLUME 10.3 fL (7.4-10.4); MONOCYTES 11.6 % (2-11); NEUTROPHILS 72.6 % (40-80); PLATELET COUNT 130 10x3/uL (130-400); RDW 17.9 % (11.5-14.5); WBC 6.5 10x3/uL (4.8-10.8)
[2019-08-09 16:17] LABS: APTT 27.9 SECONDS (22.8-39.4); INR 1.21 (0.85-1.17); PROTIME 14.8 SECONDS (11.6-15.0)
[2019-08-09 16:41] LABS: ALBUMIN 3.2 g/dL (3.4-5.0); ALKALINE PHOSPHATASE 88 U/L (46-116); ALT (SGPT) 20 U/L (10-68); BILIRUBIN - TOTAL 0.57 mg/dL (0.2-1.3); CALC OSMOLALITY 329 mosm/kg (275-300); CHLORIDE - SERUM 104 mmol/L (98-107); CKMB 11.2 U/L (0.0-3.6); CREATINE KINASE 352 UL (21-232); CREATININE - SERUM 15.2 mg/dL (0.6-1.3); GLUCOSE 93 mg/dL (74-106); PROTEIN - SERUM 8.3 g/dL (6.4-8.2); SODIUM 142 mmol/L (136-145); UREA NITROGEN 144 mg/dL (7-18); eGFR NON AFRICAN AMERICAN 4 mL/min (90-120)
[2019-08-09 16:59] LABS: CALCIUM 6.5 mg/dL (8.5-10.1); POTASSIUM - SERUM 6.6 mmol/L (3.5-5.1); PRO BNP 204693 pg/mL (0-125)
[2019-08-09 21:00] VITALS: BP 152/84
== END 2019-08-09 21:00 | disposition home or self-care (01) ==
LOC: D.ER 14:36
PROVIDERS: Family Medicine
DX: Z91.15 Patient's noncompliance with renal dialysis (principal); I12.9 Hypertensive chronic kidney disease with stage 1 through stage 4 chronic kidney disease, or unspecified chronic kidney disease; E11.22 Type 2 diabetes mellitus with diabetic chronic kidney disease; N18.9 Chronic kidney disease, unspecified; I25.2 Old myocardial infarction; I25.10 Atherosclerotic heart disease of native coronary artery without angina pectoris; Z72.0 Tobacco use

== ENCOUNTER 2019-08-13 20:50 | Observation (INO) | payer MEDICAID ==
[~2019-08-13] VITALS: Ht 177.8 cm; Wt 78.0 kg
[2019-08-13 21:00] VITALS: BP 219/30
[2019-08-13 21:45] VITALS: BP 230/124
[2019-08-13 21:45] LABS: BASOPHILS 0 % (0-2); EOSINOPHILS 0.2 % (0-7); HEMATOCRIT 29.3 % (42.0-54.0); HEMOGLOBIN 9.5 g/dL (13.5-17.5); IMMATURE GRANULOCYTES 0.5 % (0-5); LYMPHOCYTES 13.5 % (15-50); MCH 30.5 pg (26.0-34.0); MCHC 32.4 g/dL (31.0-37.0); MCV 94.2 fL (80.0-100.0); MEAN PLATELET VOLUME 9.9 fL (7.4-10.4); MONOCYTES 11.8 % (2-11); PLATELET COUNT 111 10x3/uL (130-400); RBC 3.11 10x6/uL (4.20-6.10); WBC 5.8 10x3/uL (4.8-10.8)
[2019-08-13 21:51] LABS: APTT 37.2 SECONDS (22.8-39.4); INR 1.31 (0.85-1.17); PROTIME 15.7 SECONDS (11.6-15.0)
[2019-08-13 22:00] VITALS: BP 207/127
[2019-08-13 22:14] LABS: ALBUMIN 3.4 g/dL (3.4-5.0); ALKALINE PHOSPHATASE 88 U/L (46-116); ALT (SGPT) 20 U/L (10-68); BILIRUBIN - TOTAL 0.52 mg/dL (0.2-1.3); CALC OSMOLALITY 329 mosm/kg (275-300); CARBON DIOXIDE 17.5 mmol/L (21.0-32.0); CHLORIDE - SERUM 101 mmol/L (98-107); CKMB 11.6 U/L (0.0-3.6); CREATINE KINASE 318 UL (21-232); CREATININE - SERUM 15.2 mg/dL (0.6-1.3); GLUCOSE 93 mg/dL (74-106); PROTEIN - SERUM 8.7 g/dL (6.4-8.2); SODIUM 142 mmol/L (136-145); UREA NITROGEN 143 mg/dL (7-18); eGFR NON AFRICAN AMERICAN 4 mL/min (90-120)
[2019-08-13 22:17] LABS: TROPONIN-I 0.224 ng/mL (0.000-0.060)
[2019-08-13 22:22] LABS: POTASSIUM - SERUM 6.3 mmol/L (3.5-5.1)
[2019-08-13 22:42] LABS: PRO BNP 159175 pg/mL (0-125)
[2019-08-13 22:45] VITALS: BP 211/139
[2019-08-13 23:31] VITALS: BP 205/118
--- NOTE | 2019-08-14 00:20 | NUR ---
CALCIUM GLUCONATE STOP TIME 0020
[2019-08-14 00:35] VITALS: BP 219/117; BMI 24.7
--- NOTE | 2019-08-14 00:43 | NUR ---
RECEIVED REPORT FROM RN IN ER.ARRIVED TO FLOOR IN W/C. ALERT AND ORIENTED X4. UP AD LANDRY. GRUNTING AND STATES IT'S PAIN. LEFT ARM SWOLLEN AND STATED IT STARTED SWELLING YESTERDAY. IV TO RIGHT FA SL. NO OTHER SITES OF EDEMA OBSERVED. EDUCATED ON NEED FOR DIALYSIS. EXPLAINED HE CAN'T GET THERE AND HAS NO RIDE.
--- NOTE | 2019-08-14 01:00 | NUR ---
GAVE PT SANDWICH PER REQUEST AND CONSUMED HALF OF SANDWICH AND A GLASS OF ICE WATER.
[2019-08-14 04:15] VITALS: BP 200/101
[2019-08-14 07:16] LABS: BASOPHILS 0 % (0-2); EOSINOPHILS 0 % (0-7); HEMATOCRIT 28.1 % (42.0-54.0); HEMOGLOBIN 8.9 g/dL (13.5-17.5); IMMATURE GRANULOCYTES 0.5 % (0-5); MCH 29.9 pg (26.0-34.0); MCHC 31.7 g/dL (31.0-37.0); MCV 94.3 fL (80.0-100.0); MEAN PLATELET VOLUME 10.5 fL (7.4-10.4); MONOCYTES 8.2 % (2-11); NEUTROPHILS 82.3 % (40-80); PLATELET COUNT 110 10x3/uL (130-400); RBC 2.98 10x6/uL (4.20-6.10); RDW 18.1 % (11.5-14.5); WBC 5.9 10x3/uL (4.8-10.8)
[2019-08-14 07:32] LABS: CARBON DIOXIDE 15.8 mmol/L (21.0-32.0); CREATININE - SERUM 14.7 mg/dL (0.6-1.3); MAGNESIUM - SERUM 2.8 mg/dL (1.8-2.4)
[2019-08-14 07:34] VITALS: BP 179/90
[2019-08-14 07:46] LABS: ANION GAP 30.5 mmol/L (8-16)
[2019-08-14 07:47] LABS: CALCIUM 6.8 mg/dL (8.5-10.1); PHOSPHOROUS 13.8 mg/dL (2.5-4.9); POTASSIUM - SERUM 6.3 mmol/L (3.5-5.1)
--- NOTE | 2019-08-14 09:08 | MORECARE ---
CASE MANAGEMENT DISCHARGE SUMMARY PATIENT: ODETTE OH UNIT: [id number] ADM DATE: 08/13/19 AGE: 58 : 64 SEX: M ROOM/BED: D.1207 AUTHOR: ETHAN MAHONEY PHYSICIAN: REFERRING PHYSICIAN: TRACY RED DO DATE OF SERVICE: 08/14/19 Discharge Plan Patient Name: ODETTE OH [facility] [facility] 1960 Planned Disposition: Home Anticipated Discharge Date: 08/14/19 Discharge Date: Expected LOS: 1 Initial Reviewer: [email or web address] Initial Review Date: 08/13/2019 Generated: 08/14/19 10:08 am Patient Name: ODETTE OH Page 32269 at 0908 All edits/amendments must be made on the electronic document DICTATION DATE: 08/14/19907 LAND TITLE EXAMINER: [facility] 08/14/19907 RPT#: [id number] DC DATE: STATUS: ADM IN [facility] [address] [place] [address] END OF REPORT
--- NOTE | 2019-08-14 09:46 | NUR ---
PT JASSON TO DIALYSIS AT THIS TIME ON 6L NC
[2019-08-14 10:48] VITALS: Ht 177.8 cm; Wt 78.0 kg
--- NOTE | 2019-08-14 13:30 | NUR ---
PT BROUGHT BACK TO ROOM FROM DIALYSIS. WILL CTM
--- NOTE | 2019-08-14 14:42 | NUR ---
DC PAPERWORK GONE OVER AND SIGNED WITH PT. PIV REMOVED, CATH TIP FULLY INTACT. TELEMETRY REMOVED AND RETURNED TO HONE OPERATOR. PT WAITING FROM RIDE TO COME GET HIM FROM [place]. WILL CTM
--- NOTE | 2019-08-14 15:28 | NUR ---
PT WHEELED TO FRONT ENTRANCE. DAUGHTER TO TAKE HIM HOME.
== END 2019-08-14 15:28 | disposition home or self-care (01) ==
LOC: D.ER 20:50 → D.M3 22:28 → OBSVTIME 22:28 → D.M3 08-14 15:28
PROVIDERS: Family Medicine; ADMIT Internal Medicine; ATTEND Internal Medicine
DX: I12.0 Hypertensive chronic kidney disease with stage 5 chronic kidney disease or end stage renal disease (principal); N18.6 End stage renal disease; Z99.2 Dependence on renal dialysis; Z91.15 Patient's noncompliance with renal dialysis; F14.10 Cocaine abuse, uncomplicated

== ENCOUNTER 2020-03-12 22:57 | Inpatient (IN) | payer MEDICAID ==
[~2020-03-12] VITALS: Ht 177.8 cm; Wt 73.9 kg
[2020-03-12 23:24] LABS: BASOPHILS 0.1 % (0-2); EOSINOPHILS 0.3 % (0-7); HEMATOCRIT 30.4 % (42.0-54.0); HEMOGLOBIN 9.3 g/dL (13.5-17.5); IMMATURE GRANULOCYTES 0.3 % (0-5); LYMPHOCYTES 9.4 % (15-50); MCH 28.8 pg (26.0-34.0); MCHC 30.6 g/dL (31.0-37.0); MCV 94.1 fL (80.0-100.0); MEAN PLATELET VOLUME 9.6 fL (7.4-10.4); MONOCYTES 10.9 % (2-11); RBC 3.23 10x6/uL (4.20-6.10); RDW 15.5 % (11.5-14.5); WBC 11.8 10x3/uL (4.8-10.8)
[2020-03-12 23:25] LABS: PLATELET COUNT 218 10x3/uL (130-400)
[2020-03-12 23:30] VITALS: BP 167/85
[2020-03-12 23:59] LABS: ALBUMIN 2.9 g/dL (3.4-5.0); BILIRUBIN - TOTAL 0.44 mg/dL (0.2-1.3); CALCIUM 8.6 mg/dL (8.5-10.1); CREATININE - SERUM 12.6 mg/dL (0.6-1.3); PROTEIN - SERUM 8.3 g/dL (6.4-8.2); TROPONIN-I 0.046 ng/mL (0.000-0.060)
[2020-03-13] VITALS: BP 150/72; BP 155/78
[2020-03-13 00:03] LABS: ANION GAP 17.2 mmol/L (8-16); POTASSIUM - SERUM 6.2 mmol/L (3.5-5.1)
[2020-03-13 00:30] VITALS: BP 148/81
--- NOTE | 2020-03-13 00:35 | NUR ---
TRANSPORTED PATIENT WITH [facility] INFUSING
--- NOTE | 2020-03-13 00:50 | NUR ---
PT FROM ER VIA STRETCHER, PT ON NON REBREATHER, PT MOVED TO BED, NO DISTRESS NOTED, RESP EVEN AND UNLABORED. CL IN REACH, SR UP X 2.
--- NOTE | 2020-03-13 02:46 | NUR ---
I have reviewed this patient and I concur with the Shift Assessment completed by the Licensed Practical Nurse today this shift.
[2020-03-13 04:00] VITALS: BP 157/75
[2020-03-13 08:28] VITALS: BP 137/74
[2020-03-13 12:29] VITALS: BP 133/66
[2020-03-13 13:44] VITALS: Ht 177.8 cm; Wt 73.9 kg
--- NOTE | 2020-03-13 17:09 | MORECARE ---
CASE MANAGEMENT DISCHARGE SUMMARY PATIENT: ODETTE OH UNIT: [id number] ADM DATE: 03/12/20 AGE: 59 : 64 SEX: M ROOM/BED: D.2137 AUTHOR: ETHAN MAHONEY PHYSICIAN: REFERRING PHYSICIAN: JUAN ANDRADE MD DATE OF SERVICE: 03/13/20 Discharge Plan Patient Name: ODETTE OH [facility] [facility] 1960 Planned Disposition: Anticipated Discharge Date: Discharge Date: Expected LOS: Initial Reviewer: [email or web address] Initial Review Date: 03/13/2020 Generated: 03/13/20 6:08 pm Patient Name: ODETTE OH Page 43451 at 1709 All edits/amendments must be made on the electronic document DICTATION DATE: 03/13/201707 REVIEWER SALES: [facility] 03/13/201707 RPT#: [id number] DC DATE: STATUS: ADM IN [facility] [address] [place] [address] END OF REPORT
[2020-03-13 20:00] VITALS: BP 133/52
--- NOTE | 2020-03-13 20:00 | NUR ---
SITTING UP IN BED WATCHING TV, C/O PAIN REQUESTING PAIN MEDS TYLENOL GIVEN, SEE SHIFT ASSESSEMNT, CALL LIGHT IN REACH
[2020-03-14] VITALS: BP 127/59
[2020-03-14 04:00] VITALS: BP 131/84
--- NOTE | 2020-03-14 07:15 | NUR ---
RECEIVED PT IN BED WITH EYES CLOSED RESP UNLABORED SKIN W/D NAD NOTED
[2020-03-14 10:06] LABS: BASOPHILS 0.2 % (0-2); EOSINOPHILS 0.6 % (0-7); HEMATOCRIT 26.7 % (42.0-54.0); HEMOGLOBIN 8.2 g/dL (13.5-17.5); IMMATURE GRANULOCYTES 0.4 % (0-5); LYMPHOCYTES 22.6 % (15-50); MCH 28.9 pg (26.0-34.0); MCHC 30.7 g/dL (31.0-37.0); MEAN PLATELET VOLUME 9.4 fL (7.4-10.4); MONOCYTES 11.8 % (2-11); NEUTROPHILS 64.4 % (40-80); RBC 2.84 10x6/uL (4.20-6.10); RDW 15.4 % (11.5-14.5)
[2020-03-14 10:13] LABS: PLATELET COUNT 152 10x3/uL (130-400)
[2020-03-14 10:16] LABS: ANION GAP 13.7 mmol/L (8-16); CALCIUM 8.1 mg/dL (8.5-10.1); CARBON DIOXIDE 27.2 mmol/L (21.0-32.0); CREATININE - SERUM 8.8 mg/dL (0.6-1.3); POTASSIUM - SERUM 4.9 mmol/L (3.5-5.1)
[2020-03-14 12:45] VITALS: BP 121/56
--- NOTE | 2020-03-14 14:51 | MORECARE ---
CASE MANAGEMENT DISCHARGE SUMMARY PATIENT: OEDTTE OH UNIT: [id number] ADM DATE: 03/12/20 AGE: 59 : 64 SEX: M ROOM/BED: D.2137 AUTHOR: ETHAN MAHONEY PHYSICIAN: REFERRING PHYSICIAN: JUAN ANDRADE MD DATE OF SERVICE: 03/14/20 Discharge Plan Patient Name: ODETTE OH [facility] [facility] 1960 Planned Disposition: Anticipated Discharge Date: Discharge Date: Expected LOS: Initial Reviewer: [email or web address] Initial Review Date: 03/13/2020 Generated: 03/14/20 3:51 pm Comments DCP- Discharge Planning Updated by [email or web address]: Karissa Sales on 03/14/20 1:[address] CM attempted to meet with pt to initiate DC plan. Patient refused to meet with CM at this time. Stated he was too tired. CM will continue to assist with DC plan. Karissa aSles Last DP export: 03/13/20 4:09 p Patient Name: ODETTE OH Page [id number] at 1451 All edits/amendments must be made on the electronic document DICTATION DATE: 03/14/20 1451 DIRECTOR OF SPA AND GUEST EXPERIENCE: LUH 03/14/20 1451 RPT#: [id number] DC DATE: STATUS: ADM IN [facility] [address] [place] [address] END OF REPORT
--- NOTE | 2020-03-14 15:14 | MORECARE ---
CASE MANAGEMENT DISCHARGE SUMMARY PATIENT: ODETTE OH UNIT: [id number] ADM DATE: 03/12/20 AGE: 59 : 64 SEX: M ROOM/BED: D.2137 AUTHOR: ETHAN MAHONEY PHYSICIAN: REFERRING PHYSICIAN: JUAN ANDRADE MD DATE OF SERVICE: 03/14/20 Discharge Plan Patient Name: ODETTE OH [facility] : 1960 Planned Disposition: Anticipated Discharge Date: Discharge Date: Expected LOS: Initial Reviewer: [id number] Initial Review Date: 03/13/2020 Generated: 03/14/20 4:13 pm Comments DCP- Discharge Planning Updated by [id number]: Karissa Sales on 03/14/20 1:[address] CM attempted to meet with pt to initiate DC plan. Patient refused to meet with CM at this time. Stated he was too tired. CM will continue to assist with DC plan. Karissa Sales Last DP export: 03/14/20 1:51 p Patient Name: ODETTE OH Page 14025 at 1514 All edits/amendments must be made on the electronic document DICTATION DATE: 03/14/20 151 SENIOR NET PROGRAMMER: LUH 03/14/201512 RPT#: [id number] DC DATE: STATUS: ADM IN [facility] [address] [place] [address] END OF REPORT
--- NOTE | 2020-03-14 19:45 | NUR ---
REPORT RECEIVED AND ROUNDING COMPLETE. PATIENT SITTING UP IN BED IN HIGH FOWLERS, PATIENT STATES HE NEEDS NOTHING FROM ME IN A RUDE MANNER, LEFT EJ SALINE LOCKED AND NO DISTRESS NOTED AT THIS TIME. WEARING NASAL CANNULA WITH O2 AT 4L. CALL LIGHT WITHIN REACH AND BED IN LOWEST LOCKED POSITION.
[2020-03-14 20:30] VITALS: BP 137/60
[2020-03-15 04:58] VITALS: BP 127/64
--- NOTE | 2020-03-15 07:00 | NUR ---
RECEIVED REPORT. ASSUMED CARE OF PATIENT. CALL LIGHT WITHIN REACH. PATIENT RESTING WITH EYES CLOSED. RESP EVEN AND UNLABORED. NO DISTRESS. BEDSIDE SHIFT REPORT COMPLETE. WHITE BOARD UPDATED.
[2020-03-15 08:30] VITALS: BP 138/63
--- NOTE | 2020-03-15 09:55 | NUR ---
REFUSED LOVENOX INJECTION AND NICOTINE PATCH AT THIS TIME.
--- NOTE | 2020-03-15 10:08 | NUR ---
LEFT EJ 20 GAUGE FOUND TO BE INFILTRATED WHEN TRYING TO FLUSH FOR PATENCY. IV CATHETER REMOVED. CATHETER TIP INTACT. NO BLEEDING FROM SITE. 2X2 GUAZE APPLIED AND SECURED WITH BANDAID. PATIENT HAS NO IV ACCESS AT THIS TIME.
[2020-03-15] MEDS ORDERED: BACTRIM DS TAB1 EAC1 PO (10:58)
[2020-03-15 11:30] VITALS: BP 130/63
[2020-03-15] MEDS ORDERED: NICODERM CQ1 EAC3 TOPICAL (12:19)
--- NOTE | 2020-03-15 14:16 | MORECARE ---
CASE MANAGEMENT DISCHARGE SUMMARY PATIENT: ODETTE OH UNIT: [id number] ADM DATE: 03/12/20 AGE: 59 : 64 SEX: M ROOM/BED: D.2137 AUTHOR: ETHAN MAHONEY PHYSICIAN: REFERRING PHYSICIAN: JUAN ANDRADE MD DATE OF SERVICE: 03/15/20 Discharge Plan Patient Name: ODETTE OH [facility] [facility] 1960 Planned Disposition: Anticipated Discharge Date: Discharge Date: Expected LOS: Initial Reviewer: [email or web address] Initial Review Date: 03/13/2020 Generated: 03/15/20 3:15 pm Comments DCP- Discharge Planning Updated by [email or web address]: Karissa Sales on 03/14/20 1:[address] CM attempted to meet with pt to initiate DC plan. Patient refused to meet with CM at this time. Stated he was too tired. CM will continue to assist with DC plan. Karissa Sales External Providers External Provider: [facility] Next Contact Date: Service Request Date: Service Type: Resolution: Reviewer: Comments: Last DP export: 03/14/20 2:14 p Patient Name: ODETTE OH Page 19403 at 1416 All edits/amendments must be made on the electronic document DICTATION DATE: 03/15/20 1415 WELDER PRODUCTION LINE GAS: LUH 03/15/20 1415 RPT#: [id number] DC DATE: STATUS: ADM IN [facility] [address] [place] [address] END OF REPORT
--- NOTE | 2020-03-15 14:22 | MORECARE ---
CASE MANAGEMENT DISCHARGE SUMMARY PATIENT: ODETTE OH UNIT: [id number] ADM DATE: 03/12/20 AGE: 59 : 64 SEX: M ROOM/BED: D.2130 AUTHOR: ETHAN MAHONEY PHYSICIAN: REFERRING PHYSICIAN: JUAN ANDRADE MD DATE OF SERVICE: 03/15/20 Discharge Plan Patient Name: ODETTE OH Facility: [facility]:[place] : 1960 Planned Disposition: Anticipated Discharge Date: Discharge Date: Expected LOS: Initial Reviewer: [email or web address] Initial Review Date: 03/13/2020 Generated: 03/15/20 3:22 pm Comments DCP- Discharge Planning Updated by [email or web address]: Sonia Barrera on 03/15/20 1:[address] Patient notified staff that he is a resident at [facility] . CM called facility to verify and they agreed that he is a resident there. CM asked about transportation back to facility and was told that either he would need to contact family or ambulance transfer d/t lack of cement mixer driver on weekends. Nursing to call report and CM faxed d/c records to facility. Ambulance transfer will be required d/t to inability to get family to transport. CM will continue to follow and assist as needed with discharge planning needs. DCP- Discharge Planning Updated by [email or web address]: Karissa Sales on 03/14/20 1:[address] CM attempted to meet with pt to initiate DC plan. Patient refused to meet with CM at this time. Stated he was too tired. CM will continue to assist with DC plan. Karissa Sales Last DP export: 03/15/20 1:16 pm Patient Name: ODETTE OH Page 91255 at 1422 All edits/amendments must be made on the electronic document DICTATION DATE: 03/15/20 142 FLEET SALES ASSOCIATE: LUH 03/15/20 142 RPT#: [id number] DC DATE: STATUS: ADM IN [facility] [address] [id number] END OF REPORT
--- NOTE | 2020-03-15 14:22 | NUR ---
REPORT CALLED TO [facility] IN [place] AT [phone]. WAITED FOR MORE THAN FIVE MINUTES AND NO NURSE EVERY CAME TO THE PHONE AFTER BEING PLACED ON HOLD BY THE [employer] MAKEUP ARTIST.
--- NOTE | 2020-03-15 14:31 | NUR ---
CALLED AND SPOKE WITH PARISA PENA AT [facility] AND REPORT WAS GIVEN.
--- NOTE | 2020-03-15 14:35 | NUR ---
[facility].
[2020-03-15 15:30] VITALS: BP 136/70
--- NOTE | 2020-03-15 17:47 | NUR ---
PATIENT LEFT UNIT VIA GERNEY WITH EMS. PATIENT DISCHARGED BACK TO [facility] IN [place]. PATIENT IN NO DISTRESS UPON LEAVING UNIT.
--- NOTE | 2020-03-15 18:15 | MORECARE ---
CASE MANAGEMENT DISCHARGE SUMMARY PATIENT: ODETTE OH UNIT: [id number] ADM DATE: 03/12/20 AGE: 59 : 64 SEX: M ROOM/BED: D.2131 AUTHOR: ETHAN MAHONEY PHYSICIAN: REFERRING PHYSICIAN: JUAN ANDRADE MD DATE OF SERVICE: 03/15/20 Discharge Plan Patient Name: ODETTE OH Facility: [facility]:[place] : 1960 Planned Disposition: Anticipated Discharge Date: Discharge Date: 03/15/2020 Expected LOS: Initial Reviewer: [email or web address] Initial Review Date: 03/13/2020 Generated: 03/15/20 7:15 pm Comments DCP- Discharge Planning Updated by [email or web address]: Sonia Barrera on 03/15/20 1:[address] Patient notified staff that he is a resident at [facility] . CM called facility to verify and they agreed that he is a resident there. CM asked about transportation back to facility and was told that either he would need to contact family or ambulance transfer d/t lack of transportation technician on weekends. Nursing to call report and CM faxed d/c records to facility. Ambulance transfer will be required d/t to inability to get family to transport. CM will continue to follow and assist as needed with discharge planning needs. DCP- Discharge Planning Updated by [email or web address]: Karissa Sales on 03/14/20 1:[address] CM attempted to meet with pt to initiate DC plan. Patient refused to meet with CM at this time. Stated he was too tired. CM will continue to assist with DC plan. Karissa Reynosods Last DP export: 03/15/20 1:22 pm Patient Name: ODETTE OH Page 22302 at 1815 All edits/amendments must be made on the electronic document DICTATION DATE: 03/15/201814 SHAFT SINKER: LUH 03/15/201814 RPT#: [id number] DC DATE:03/15/20 STATUS: DIS IN [place] [address] [place] [address] END OF REPORT
== END 2020-03-15 17:48 | DRG 193 ==
LOC: D.ER 22:57 → D.M2 23:48 → D.EDHOLD 23:48 → D.M2 23:49
PROVIDERS: Family Medicine; ADMIT Internal Medicine Nephrology; ATTEND Internal Medicine Nephrology
DX: J18.9 Pneumonia, unspecified organism (principal); N18.6 End stage renal disease; I12.0 Hypertensive chronic kidney disease with stage 5 chronic kidney disease or end stage renal disease; E87.70 Fluid overload, unspecified; Z99.2 Dependence on renal dialysis; Z91.15 Patient's noncompliance with renal dialysis; E87.5 Hyperkalemia; D63.1 Anemia in chronic kidney disease; B19.20 Unspecified viral hepatitis C without hepatic coma; Z72.0 Tobacco use; R50.9 Fever, unspecified

== ENCOUNTER 2020-04-11 01:50 | Inpatient (IN) | payer MEDICAID ==
[2020-04-11] VITALS (16 sets, daily range): BP systolic 98–185; BP diastolic 55–98; BMI 22.7
[~2020-04-11] VITALS: Ht 177.8 cm; Wt 71.7 kg
[~2020-04-11 01:50] MED LIST changes: +BACTRIM DS TAB1 EAC1 PO; +NICODERM CQ1 EAC3 TOPICAL
--- NOTE | 2020-04-11 03:57 | NUR ---
PT GIVEN URINAL, DENIES FURTHER NEEDS CALL LIGHT WITHIN REACH. WILL CONTINUE TO MONITOR.
--- NOTE | 2020-04-11 04:19 | NUR ---
IV STARTED IN PT'S LEFT HAND BY ICU NURSE PER DR CARRASCO.
[2020-04-11 04:21] LABS: BASOPHILS 0 % (0-2); EOSINOPHILS 0.1 % (0-7); HEMATOCRIT 24.4 % (42.0-54.0); HEMOGLOBIN 7.6 g/dL (13.5-17.5); IMMATURE GRANULOCYTES 0.3 % (0-5); LYMPHOCYTES 9.9 % (15-50); MCHC 31.1 g/dL (31.0-37.0); MCV 93.1 fL (80.0-100.0); MEAN PLATELET VOLUME 8.8 fL (7.4-10.4); MONOCYTES 8.4 % (2-11); NEUTROPHILS 81.3 % (40-80); PLATELET COUNT 179 10x3/uL (130-400); RBC 2.62 10x6/uL (4.20-6.10); RDW 16.9 % (11.5-14.5); WBC 7.4 10x3/uL (4.8-10.8)
--- NOTE | 2020-04-11 04:35 | NUR ---
PT GIVEN SANDWICH AND WATER. DENIES FURTHER NEEDS. CALL LIGHT WITHIN REACH.
[2020-04-11 04:36] LABS: INR 1.29 (0.85-1.17)
[2020-04-11 04:37] LABS: D-DIMER-QUANTITATIVE 1.43 ug/mLFEU (0.20-0.54)
[2020-04-11 04:47] LABS: ALBUMIN 2.8 g/dL (3.4-5.0); BILIRUBIN - TOTAL 0.57 mg/dL (0.2-1.3); CALCIUM 7.6 mg/dL (8.5-10.1); CARBON DIOXIDE 22.5 mmol/L (21.0-32.0); CREATININE - SERUM 12.8 mg/dL (0.6-1.3); MAGNESIUM - SERUM 2.1 mg/dL (1.8-2.4); PROTEIN - SERUM 8.1 g/dL (6.4-8.2); TROPONIN-I 0.051 ng/mL (0.000-0.060)
[2020-04-11 04:51] LABS: ANION GAP 20.5 mmol/L (8-16)
--- NOTE | 2020-04-11 05:16 | NUR ---
PT'S IV CALCIUM FINISHED AT THIS TIME.
[2020-04-11 09:04] LABS: % SATURATION 7 % (15-55); IRON 20 ug/dl (35-150); TOTAL IRON BIND CAPACITY 256 ug/dl (260-445); UNSAT IRON BIND CAPACITY 236 ug/dl (150-375)
[2020-04-11 09:40] LABS: PHOSPHOROUS 8.7 mg/dL (2.5-4.9)
--- NOTE | 2020-04-11 10:30 | NUR ---
DIAYLSIS NURSE PRESENT AT THIS TIME. PT WILL BE MONITORED BY DIAYLSIS NURSE DURING HD.
--- NOTE | 2020-04-11 13:35 | NUR ---
DIAYLSIS COMPLETE AT THIS TIME. 4.5 L TAKEN OFF.
[2020-04-12] VITALS (16 sets, daily range): BP systolic 124–186; BP diastolic 31–91; Ht 177.8 cm; Wt 71.7 kg
[2020-04-12 04:33] LABS: BASOPHILS 0 % (0-2); EOSINOPHILS 0.5 % (0-7); HEMATOCRIT 21.9 % (42.0-54.0); IMMATURE GRANULOCYTES 0.5 % (0-5); MCH 32.2 pg (26.0-34.0); MCHC 33.3 g/dL (31.0-37.0); MEAN PLATELET VOLUME 9.6 fL (7.4-10.4); MONOCYTES 13.8 % (2-11); NEUTROPHILS 64.2 % (40-80); PLATELET COUNT 167 10x3/uL (130-400); RBC 2.27 10x6/uL (4.20-6.10)
[2020-04-12 04:46] LABS: WBC 4.4 10x3/uL (4.8-10.8)
[2020-04-12 04:48] LABS: ALBUMIN 2.6 g/dL (3.4-5.0); BILIRUBIN - TOTAL 0.42 mg/dL (0.2-1.3); CALCIUM 7.6 mg/dL (8.5-10.1); HEMOGLOBIN 7.3 g/dL (13.5-17.5); MCV 96.5 fL (80.0-100.0); PHOSPHOROUS 6.7 mg/dL (2.5-4.9); PROTEIN - SERUM 7.9 g/dL (6.4-8.2)
[2020-04-12 04:50] LABS: ANION GAP 15.4 mmol/L (8-16); CARBON DIOXIDE 29.3 mmol/L (21.0-32.0); CREATININE - SERUM 8.4 mg/dL (0.6-1.3); POTASSIUM - SERUM 4.7 mmol/L (3.5-5.1)
--- NOTE | 2020-04-12 07:40 | NUR ---
PT AWAKE AND ORIENTED LYING IN BED. WEARING NONREBREATHER MASK APPROPRIATELY. ALSO WEARING HFNC. PT QUESTIONS WHEN HE CAN EAT. EXPLAINED TO PT THAT D/T HX OF DSATING WHEN TAKEN OF NRB AFTER ABOUT 15MIN, I WILL LET HIM EAT WHEN BREAKFAST COMES, BUT THAT HE WILL HAVE TO EAT REALITIVLY QUICKLY AND IF O2 STARTS TO DROP WE WILL NEED TO STOP AND PLACE HIM BACK ON THE NRB. PT ANGRILY AGREES. NO FURTHER QUESTIONS COMMENTS OR CONCERNS AT THIS TIME. CL IN REACH, SRX2. WILL CNT. TO MONITOR.
--- NOTE | 2020-04-12 08:55 | NUR ---
STARTED 1U PRBC PER MD ORDER. PT TOELRATING WELL.
--- NOTE | 2020-04-12 10:19 | NUR ---
PT RESTING COMFORTABLY, TOLERATING PRBC, VS WNL. NO COMPLAINTS OR CONCERNS AT THIS TIME. CL IN REACH SRX2
--- NOTE | 2020-04-12 11:03 | NUR ---
DIALYSIS NURSE IN ROOM TO DIALYSISE. CL IN REACH SRX2
--- NOTE | 2020-04-12 15:53 | NUR ---
I CONCUR WITH THE LPNS ASSESSMENT OF THIS PATIENT.
[2020-04-13] VITALS (10 sets, daily range): BP systolic 115–196; BP diastolic 50–87
--- NOTE | 2020-04-13 07:41 | NUR ---
PT AWAKE AND ORIENTED, LYING IN BED WATCHING TELIVISION. NO COMPLAINTS OR CONCERNS, 02 BUMPED DOWN TO 6 LETERS, PT TOLERATING WELL. CL IN REACH, SRX2.
--- NOTE | 2020-04-13 08:20 | NUR ---
PT AWAKE AND ORIENTED, TOOK MEDICATIONS WITHOUT COMPLICATIONS. STATES HIS BACK IS HURITNG ALOT TODAY. BUMPED BACK UP TO 7L AND PT DSATING HE ATE. WILL CNT. TO MONITOR. CL IN REACH, SRX2.
[2020-04-13 10:08] LABS: BASOPHILS 0.2 % (0-2); EOSINOPHILS 1.4 % (0-7); HEMOGLOBIN 8.6 g/dL (13.5-17.5); IMMATURE GRANULOCYTES 0.7 % (0-5); LYMPHOCYTES 18.2 % (15-50); MCH 29.2 pg (26.0-34.0); MCHC 31.4 g/dL (31.0-37.0); NEUTROPHILS 69.5 % (40-80); PLATELET COUNT 178 10x3/uL (130-400); RDW 16.6 % (11.5-14.5)
[2020-04-13 10:14] LABS: HEMATOCRIT 27.4 % (42.0-54.0); MCV 92.9 fL (80.0-100.0); RBC 2.95 10x6/uL (4.20-6.10); WBC 5.8 10x3/uL (4.8-10.8)
[2020-04-13 10:27] LABS: ALBUMIN 2.6 g/dL (3.4-5.0); ANION GAP 18.2 mmol/L (8-16); BILIRUBIN - TOTAL 0.46 mg/dL (0.2-1.3); CALCIUM 7.7 mg/dL (8.5-10.1); CARBON DIOXIDE 25.8 mmol/L (21.0-32.0)
[2020-04-13 10:28] LABS: CREATININE - SERUM 10.6 mg/dL (0.6-1.3)
--- NOTE | 2020-04-13 11:26 | NUR ---
PT UP THE BEDSIDE COMMODE, STANDBY ASSIST. WAITING ON FLOOR BED PLACEMNT. NO COMPLAINTS OR CONCERNS AT THIS TIME. CL IN REACH, SRX2.
--- NOTE | 2020-04-13 12:11 | NUR ---
pt back in bed. STANDBY ASSIST HE RETURNED. LINNENS FIXED. PROVIDED LUNCH. PTS O2 DECREASED HE MOVED AROUND BECOMING NOTABLY SHORT OF BREATH, ONCE HE SAT STILL IT CAME BACK UP TO APPROPRIATE PERCENTAGES. NO COMPLAINTS OR CONCERNS AT THIS TIME. CL IN REACH, SRX2.
--- NOTE | 2020-04-14 01:29 | NUR ---
04/13/20 1900 BEDSIDE REPORT RECEIVED. PT A&O X4. SITTING UP IN BED WATCHING TV. NO COMPLAINTS AT THIS TIME. WILL CONT. TO MONITOR. BED IN LOWEST POSITION, CALL LIGHT IN REACH, SIDE RAILS UP X3
[2020-04-14 03:00] VITALS: BP 176/72
[2020-04-14 04:45] LABS: BASOPHILS 0.1 % (0-2); EOSINOPHILS 0.3 % (0-7); HEMOGLOBIN 9.1 g/dL (13.5-17.5); IMMATURE GRANULOCYTES 0.7 % (0-5); LYMPHOCYTES 9.2 % (15-50); MCH 29.8 pg (26.0-34.0); MCHC 31.4 g/dL (31.0-37.0); MEAN PLATELET VOLUME 9.2 fL (7.4-10.4); MONOCYTES 12.2 % (2-11); NEUTROPHILS 77.5 % (40-80); RBC 3.05 10x6/uL (4.20-6.10); RDW 16.7 % (11.5-14.5)
[2020-04-14 04:46] LABS: MCV 95.1 fL (80.0-100.0); PLATELET COUNT 230 10x3/uL (130-400); WBC 7.6 10x3/uL (4.8-10.8)
[2020-04-14 05:27] LABS: ALBUMIN 2.9 g/dL (3.4-5.0); ANION GAP 26.3 mmol/L (8-16); BILIRUBIN - TOTAL 0.7 mg/dL (0.2-1.3); CALCIUM 8.2 mg/dL (8.5-10.1); CARBON DIOXIDE 20.3 mmol/L (21.0-32.0); CREATININE - SERUM 11.4 mg/dL (0.6-1.3); PHOSPHOROUS 7.3 mg/dL (2.5-4.9); POTASSIUM - SERUM 5.6 mmol/L (3.5-5.1); PROTEIN - SERUM 8.3 g/dL (6.4-8.2)
[2020-04-14 07:00] VITALS: BP 168/78
[2020-04-14 19:00] VITALS: BP 126/78
[2020-04-15 04:00] VITALS: BP 182/56
[2020-04-15 04:36] LABS: BASOPHILS 0 % (0-2); HEMATOCRIT 27.7 % (42.0-54.0); HEMOGLOBIN 8.8 g/dL (13.5-17.5); IMMATURE GRANULOCYTES 0.4 % (0-5); LYMPHOCYTES 18.3 % (15-50); MCH 29.9 pg (26.0-34.0); MCHC 31.8 g/dL (31.0-37.0); MCV 94.2 fL (80.0-100.0); MEAN PLATELET VOLUME 9.1 fL (7.4-10.4); MONOCYTES 16.4 % (2-11); NEUTROPHILS 63.9 % (40-80); PLATELET COUNT 226 10x3/uL (130-400); RBC 2.94 10x6/uL (4.20-6.10); RDW 16.6 % (11.5-14.5)
[2020-04-15 04:39] LABS: WBC 5.2 10x3/uL (4.8-10.8)
[2020-04-15 05:14] LABS: ALBUMIN 2.8 g/dL (3.4-5.0); BILIRUBIN - TOTAL 0.51 mg/dL (0.2-1.3); CALCIUM 8.8 mg/dL (8.5-10.1); PROTEIN - SERUM 8.5 g/dL (6.4-8.2)
[2020-04-15 05:18] LABS: ANION GAP 16.3 mmol/L (8-16); CREATININE - SERUM 7.8 mg/dL (0.6-1.3); POTASSIUM - SERUM 4.3 mmol/L (3.5-5.1)
[2020-04-15 07:00] VITALS: BP 166/85
--- NOTE | 2020-04-15 07:00 | NUR ---
RECEIVED BEDSIDE REPORT ON PATIENT AND ASSUMED CARE. PATEINT ALERT AND ORIENTED, X 4, SITTING UP IN BED. VSS. O2 - 91% ON 6 LPM VIA HIGH FLOW NC, HR 74, NSR ON CM. BBS - CLEAR AND EQUAL DIMINISHED IN THE BASES. C/O PAIN TO SIDES BILATERAL RATES /10. HEAD TO TOE ASSESSMENT COMPLETED. IV 20 GA TO RIGHT AC NSL, FISTULA TO LEFT FOREARM WITH GOOD BRUIT AND THRILL.
--- NOTE | 2020-04-15 08:15 | NUR ---
PATIENT GIVEN MORNING MEDS PER MAR AND BREAKFAST TRAY. PRN PAIN MED GIVEN.
[2020-04-15 11:00] VITALS: BP 170/88
--- NOTE | 2020-04-15 11:29 | NUR ---
PATIENT SITTING UP IN BED, NO NEDS AT THIS TIME. VSS. GIVEN MEDS PER MAR.
--- NOTE | 2020-04-15 13:04 | NUR ---
PATIENT ATE APPROXIMATLEY 50% OF LUNCH TRAY. AXITHROMYCIN INFUSION COMPLETED. VSS. NO NEEDS AT THIS TIME.
[2020-04-15 15:00] VITALS: BP 163/90
--- NOTE | 2020-04-15 16:00 | NUR ---
PATIENT GIVEN PRN PAIN MED MOBIC PER OCT.
[2020-04-15 19:00] VITALS: BP 177/87
[2020-04-15 23:00] VITALS: BP 176/80
[2020-04-16 03:00] VITALS: BP 186/76
[2020-04-16 04:33] LABS: BASOPHILS 0 % (0-2); EOSINOPHILS 1.7 % (0-7); HEMATOCRIT 27.8 % (42.0-54.0); HEMOGLOBIN 8.8 g/dL (13.5-17.5); IMMATURE GRANULOCYTES 0.2 % (0-5); LYMPHOCYTES 26.5 % (15-50); MCH 29.9 pg (26.0-34.0); MCHC 31.7 g/dL (31.0-37.0); MCV 94.6 fL (80.0-100.0); MEAN PLATELET VOLUME 9.7 fL (7.4-10.4); MONOCYTES 15.2 % (2-11); NEUTROPHILS 56.4 % (40-80); PLATELET COUNT 228 10x3/uL (130-400); RBC 2.94 10x6/uL (4.20-6.10); RDW 16.3 % (11.5-14.5); WBC 4.2 10x3/uL (4.8-10.8)
[2020-04-16 04:45] LABS: ALBUMIN 2.8 g/dL (3.4-5.0); ANION GAP 16.4 mmol/L (8-16); BILIRUBIN - TOTAL 0.43 mg/dL (0.2-1.3); CARBON DIOXIDE 28.4 mmol/L (21.0-32.0); CREATININE - SERUM 9.3 mg/dL (0.6-1.3); POTASSIUM - SERUM 4.8 mmol/L (3.5-5.1); PROTEIN - SERUM 7.8 g/dL (6.4-8.2)
[2020-04-16 08:00] VITALS: BP 166/64
--- NOTE | 2020-04-16 08:00 | NUR ---
AWAKES EASILY TO VERBAL STIMULI. SOME SIDE PAIN. BREAKFAST TRAY SET AND SERVED. GOOD APPETITE. SALINE LOCK IV RIGHT INNER AC, NO SWELLING OR REDNESS NOTED. VOIDED SMALL AMOUNT OF DARK JACOBY URINE. RIGHT FOREARM FISTULA WITH PALABLE THRILL. REVIEWED MENU AND ASSIST PATIENT WITH FILLING IT OUT.
[2020-04-16 11:00] VITALS: BP 176/84
--- NOTE | 2020-04-16 11:10 | NUR ---
TO DIALYSIS PER BED.
--- NOTE | 2020-04-16 12:42 | NUR ---
Nutrition follow-up: Pt sitting in bed eating breakfast Diet order for renal PO intake ~70% average at meals Labs reviewed Wt: 158# PO intake good at this time RDN following.
[2020-04-16 15:30] VITALS: BP 133/74
--- NOTE | 2020-04-16 15:30 | NUR ---
RETURNED TO ROOM FROM DIALYSIS. AWAKE AND ALERT. TRIED TO FLUSH IV, COULD NOT FLUSH. IV RESTARTED RIGHT WRIST 20 GAUGE X 2 ATTEMPTS. ABT INFUSING. REPORT CALLED TO JENNY. PATIENT TRANSFERED TO ROOM 2108 PER BED.
--- NOTE | 2020-04-16 16:00 | NUR ---
PT TRANSFERRED TO FLOOR VIA BED AND ICU STAFF, PT ORIENTED TO ROOM AND SURROUNDING, SET PT UP WITH DRINK AND FOOD, GAVE PT CALL LIGHT, BED LOW AND LOCKED, O2 AT 5L HIGH FLOW, RESP EVEN AND UNLABORED, IV INFUSING TO RIGHT AC WITHOUT DIFFICULTY, SITE CLEAR, NO OTHER NEEDS VOICED, WILL MONITOR
--- NOTE | 2020-04-16 19:45 | NUR ---
RPEORT RECIEVED AND ROUNDING COMPLETE. PATIENT LAYING IN BED IN LOW FOWLERS POSITION. PATIENT STATES HE WOULD LIKE HIS PAIN MEDICATION, WHEN ASKED WHAT HIS PAIN IS HE STATES HE JUST HAS PAIN OKAY, WILL TREAT FROM MAR WITH EVENING MEDICATIONS. NO DISTRESS NOTED, WEARING NASAL CANNULA WITH O2 AT 6L. RIGHT WRIST PIV THAT IS SALINE LOCKED AT THIS TIME. CALL LIGHT WITHIN REACH AND BED IN LOWEST LOCKED POSITION.
[2020-04-16 20:00] VITALS: BP 161/74
[2020-04-17 04:00] VITALS: BP 160/66
[2020-04-17 06:34] LABS: ALBUMIN 3.1 g/dL (3.4-5.0); ANION GAP 13.4 mmol/L (8-16); BILIRUBIN - TOTAL 0.37 mg/dL (0.2-1.3); CALCIUM 8.9 mg/dL (8.5-10.1); CARBON DIOXIDE 29.4 mmol/L (21.0-32.0); PROTEIN - SERUM 9.1 g/dL (6.4-8.2)
[2020-04-17 06:35] LABS: POTASSIUM - SERUM 3.8 mmol/L (3.5-5.1)
[2020-04-17 06:42] LABS: BASOPHILS 0 % (0-2); EOSINOPHILS 1.1 % (0-7); HEMATOCRIT 29.5 % (42.0-54.0); HEMOGLOBIN 9.8 g/dL (13.5-17.5); IMMATURE GRANULOCYTES 0.4 % (0-5); LYMPHOCYTES 26.1 % (15-50); MCHC 33.2 g/dL (31.0-37.0); MCV 96.4 fL (80.0-100.0); MEAN PLATELET VOLUME 9.4 fL (7.4-10.4); MONOCYTES 18.9 % (2-11); NEUTROPHILS 53.5 % (40-80); PLATELET COUNT 232 10x3/uL (130-400); RBC 3.06 10x6/uL (4.20-6.10); RDW 16.4 % (11.5-14.5); WBC 4.8 10x3/uL (4.8-10.8)
--- NOTE | 2020-04-17 07:26 | NUR ---
WALKING ROUNDS COMPLETE, PT RESTING IN BED WATCHING TV, O2 IN USE IV SALINE LOCKED, SITE CLEAR, PT DENIES PAIN OR NEEDS AT THIS TIME, WILL MONITOR
--- NOTE | 2020-04-17 08:39 | NUR ---
GAVE PT MORNING MEDS, PT REFUSES NICOTINE PATCH AT THIS TIME, NO OTHER NEEDS VOICED, WILL MONITOR
--- NOTE | 2020-04-17 08:50 | NUR ---
GAVE PT MOBIC FOR PAIN PER PT REQUEST, RATS PAIN 02/21 GENERAL
[2020-04-17 09:32] VITALS: BP 155/74
--- NOTE | 2020-04-17 12:12 | NUR ---
GAVE PT ULTRAM FOR PAIN, RATES PAIN 7/10 IN SIDES, NO OTHER NEEDS VOICED, WILL MONITOR
[2020-04-17 13:55] VITALS: BP 155/82
--- NOTE | 2020-04-17 14:54 | MORECARE ---
CASE MANAGEMENT DISCHARGE SUMMARY PATIENT: ODETTE OH UNIT: [id number] ADM DATE: 04/11/20 AGE: 59 : 64 SEX: M ROOM/BED: D.2108 AUTHOR: ETHAN MAHONEY PHYSICIAN: REFERRING PHYSICIAN: TRACY RED DO DATE OF SERVICE: 04/17/20 Discharge Plan Patient Name: ODETTE OH [facility] [facility] 1960 Planned Disposition: Nursing Facility [facility] Anticipated Discharge Date: Discharge Date: Expected LOS: Initial Reviewer: [email or web address] Initial Review Date: 04/17/2020 Generated: 04/17/20 3:53 pm Patient Name: ODETTE OH Page 34869 at 1454 All edits/amendments must be made on the electronic document DICTATION DATE: 04/17/201452 REQUIREMENTS MANAGER: LUH 04/17/20 1453 RPT#: [id number] DC DATE: STATUS: ADM IN [facility] [address] [place] [address] END OF REPORT
--- NOTE | 2020-04-17 15:02 | MORECARE ---
CASE MANAGEMENT DISCHARGE SUMMARY PATIENT: ODETTE OH UNIT: [id number] ADM DATE: 04/11/20 AGE: 59 : 64 SEX: M ROOM/BED: D.2108 AUTHOR: ETHAN MAHONEY PHYSICIAN: REFERRING PHYSICIAN: TRACY RED DO DATE OF SERVICE: 04/17/20 Discharge Plan Patient Name: ODETTE OH [facility] [facility] 1960 Planned Disposition: Nursing Facility [facility] Cert Anticipated Discharge Date: Discharge Date: Expected LOS: Initial Reviewer: [id number] Initial Review Date: 04/17/2020 Generated: 04/17/20 4:01 pm DCPIA - Discharge Planning Initial Assessment Updated by [email or web address]: Natalia Fonseca on 04/17/20 2:58 pm * Is the patient Alert and Oriented? Yes * How many steps to enter\exit or inside your home? 0/0 * PCP Dr. Holland in [place] * Pharmacy [facility] - * Preadmission Environment Lock Setter Long Term * Facility Name [facility] * ADLs Partial Dependent * Partial ADLs (Assistance needed) Ambulation Bathing Medication Management Toileting * Equipment Oxygen * Other Equipment All provided by [facility] * List name and contact numbers for known caregivers / representatives who currently or will assist patient after discharge: Jes Oh [facility] - [phone] Ewelinamary ann Oh [phone] Helen [phone] * Verbal permission to speak to the caregivers and representatives has been obtained from the patient. Yes * Additional services required to return to the preadmission environment? No * Can the patient safely return to the preadmission environment? Yes * Has this patient been hospitalized within the prior 30 days at any hospital? Yes Last DP export: 04/17/20 1:53 pm Patient Name: ODETTE OH Page 86176 at 1502 All edits/amendments must be made on the electronic document DICTATION DATE: 04/17/20 1502 CORE MAKER HELPER: LUH 04/17/20 1502 RPT#: [id number] DC DATE: STATUS: ADM IN [place] [address] [place] [address] END OF REPORT
--- NOTE | 2020-04-17 15:52 | MORECARE ---
CASE MANAGEMENT DISCHARGE SUMMARY PATIENT: ODETTE OH UNIT: [id number] ADM DATE: 04/11/20 AGE: 59 : 64 SEX: M ROOM/BED: D.2109 AUTHOR: MARU,DOC PHYSICIAN: REFERRING PHYSICIAN: TRACY RED DO DATE OF SERVICE: 04/17/20 Discharge Plan Patient Name: ODETTE OH Facility: [facility]:[place] : 1960 Planned Disposition: Nursing Facility [facility] Cert Anticipated Discharge Date: Discharge Date: Expected LOS: Initial Reviewer: [email or web address] Initial Review Date: 04/17/2020 Generated: 04/17/20 4:51 pm Comments DCP- Discharge Planning Updated by [email or web address]: Natalia Fonseca on 04/17/20 2:[address] Patient Name: ODETTE OH Admission Status: ER Accout number: [id number] Admission Date: 04-11-2020 : 1960 Admission Diagnosis:END STAGE RENAL DISEASE Attending: SHANTEL Current LOS: 6 Anticipated DC Date: Planned Disposition: Nursing Facility [facility] Cert Primary Insurance: MEDICAID [place] Discharge Planning Comments: CM met with patient to complete initial dc planning assessment. CM educated patient on the CM role and verbal consent given by patient to complete assessment. 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 At discharge patient plans to return and feels this is a safe discharge. CM discussed availability of home health, rehab services, and medical equipment. Patient denied known discharge needs at this time. He states he can ride the [place] transport when discharged. I called [facility] at [phone], but no one answered the phone. CM will continue to follow and will assist as needed with dc plans/needs. [facility] - phone [phone] Fax - [phone] Renewable Energy Consultant: Natalia Fonseca DCPIA - Discharge Planning Initial Assessment Updated by [email or web address]: Natalia Fonseca on 04/17/20 2:58 pm * Is the patient Alert and Oriented? Yes * How many steps to enter\exit or inside your home? 0/0 * PCP Dr. Holland in [place] * Pharmacy [facility] - * Preadmission Environment [facility] * Facility Name [facility] * ADLs Partial Dependent * Partial ADLs (Assistance needed) Ambulation Bathing Medication Management Toileting * Equipment Oxygen * Other Equipment All provided by [facility] * List name and contact numbers for known caregivers / representatives who currently or will assist patient after discharge: Jes Oh - [facility] - [phone] Ewelina Oh - [phone] Helen [phone] * Verbal permission to speak to the caregivers and representatives has been obtained from the patient. Yes * Additional services required to return to the preadmission environment? No * Can the patient safely return to the preadmission environment? Yes * Has this patient been hospitalized within the prior 30 days at any hospital? Yes Coverage Notice Reviewer: [id number] Clovis Fonseca Notice Issued Date-Time: 04/17/2020 15:45 Notice Type: Patient Choice Letter Notice Delivered To: Patient Relationship to Patient: Self Progressive Care Manager Name: Delivery Method: HAND - Hand Delivered Arlette Days: Prior Verbal Notification: Recipient Understood Notice: Yes Recipient Signature: Yes Med Rec Note Co-signed by Attending: Coverage Notice Comment: NOAH for [facility] Last DP export: 04/17/20 2:02 pm Patient Name: ODETTE OH Page 15035 at 1552 All edits/amendments must be made on the electronic document DICTATION DATE: 04/17/20 1551 HOOP RIVETER: LUH 04/17/20 155 RPT#: [id number] DC DATE: STATUS: ADM IN [facility] [address] [place] [address] END OF REPORT
[2020-04-17 18:10] VITALS: BP 168/80
--- NOTE | 2020-04-17 19:10 | NUR ---
REPORT RECEIVED, WILL CONTINUE POC. PATIENT IS AAOX4, SITTING UP IN BED. NO S/S OF DISTRESS OBSERVED, RR EVEN AND UNLABORED ON 6L HFNC. PIV TO RT WRIST, SL. PATIENT DENIES NEEDS AT THIS TIME. CL IN REACH, BED LOCKED AND LOWERED. WILL CTM.
[2020-04-17 20:00] VITALS: BP 163/81
--- NOTE | 2020-04-17 21:15 | NUR ---
HS MEDS ADMINISTERED AT THIS TIME. PATIENT TOLERATED WELL. DENIES PAIN AT THIS TIME.
[2020-04-18] VITALS: BP 170/74
[2020-04-18 04:00] VITALS: BP 169/81
--- NOTE | 2020-04-18 07:15 | NUR ---
RECEIVE BEDSIDE SHIFT REPORT. RESTING IN BED WITH LIGHTS OFF. ALERT AND ORIENTED. DENIES ANY NEEDS AT THIS TIME. WILL CONTINUE PLAN OF CARE AND SAFETY PRECAUTIONS.
[2020-04-18 09:26] LABS: BASOPHILS 0 % (0-2); EOSINOPHILS 1.9 % (0-7); HEMATOCRIT 31.1 % (42.0-54.0); HEMOGLOBIN 9.6 g/dL (13.5-17.5); IMMATURE GRANULOCYTES 0.2 % (0-5); LYMPHOCYTES 21.9 % (15-50); MCH 29.2 pg (26.0-34.0); MCHC 30.9 g/dL (31.0-37.0); MCV 94.5 fL (80.0-100.0); MEAN PLATELET VOLUME 9.6 fL (7.4-10.4); MONOCYTES 16.3 % (2-11); NEUTROPHILS 59.7 % (40-80); PLATELET COUNT 217 10x3/uL (130-400); RBC 3.29 10x6/uL (4.20-6.10); RDW 15.9 % (11.5-14.5); WBC 4.8 10x3/uL (4.8-10.8)
[2020-04-18 09:49] LABS: ANION GAP 16.7 mmol/L (8-16); BILIRUBIN - TOTAL 0.38 mg/dL (0.2-1.3); CALCIUM 8.4 mg/dL (8.5-10.1); CARBON DIOXIDE 28.3 mmol/L (21.0-32.0); CREATININE - SERUM 9.3 mg/dL (0.6-1.3); PHOSPHOROUS 6.1 mg/dL (2.5-4.9); PROTEIN - SERUM 8.1 g/dL (6.4-8.2)
--- NOTE | 2020-04-18 10:09 | MORECARE ---
CASE MANAGEMENT DISCHARGE SUMMARY PATIENT: ODETTE OH UNIT: [id number] ADM DATE: 04/11/20 AGE: 59 : 64 SEX: M ROOM/BED: D.2103 AUTHOR: MARU,DOC PHYSICIAN: REFERRING PHYSICIAN: TRACY RED DO DATE OF SERVICE: 04/18/20 Discharge Plan Patient Name: ODETTE OH Facility: [facility]:[place] : 1960 Planned Disposition: Nursing Facility [facility] Cert Anticipated Discharge Date: Discharge Date: Expected LOS: Initial Reviewer: [email or web address] Initial Review Date: 04/17/2020 Generated: 04/18/20 11:08 am DCP- Discharge Planning Updated by [email or web address]: Natalia Fonseca on 04/17/20 2:[address] Patient Name: ODETTE OH Admission Status: ER Accout number: [id number] Admission Date: 04-11-2020 : 1960 Admission Diagnosis:END STAGE RENAL DISEASE Attending: SHANTEL Current LOS: 6 Anticipated DC Date: Planned Disposition: Nursing Facility [facility] Cert Primary Insurance: MEDICAID [place] Discharge Planning Comments: CM met with patient to complete initial dc planning assessment. CM educated patient on the CM role and verbal consent given by patient to complete assessment. Patient lives at [facility] in a chcf bed, states he has been there about 6 months. At discharge patient plans to return and feels this is a safe discharge. CM discussed availability of home health, rehab services, and medical equipment. Patient denied known discharge needs at this time. He states he can ride the [place] transport when discharged. I called [facility] at [phone], but no one answered the phone. CM will continue to follow and will assist as needed with dc plans/needs. [facility] - phone [phone] Fax - [phone] Developer Architect: Natalia Fonseca DCPIA - Discharge Planning Initial Assessment Updated by [email or web address]: Natalia Fonseca on 04/17/20 2:58 pm * Is the patient Alert and Oriented? Yes * How many steps to enter\exit or inside your home? 0/0 * PCP Dr. Holland in [place] * Pharmacy [facility] - * Preadmission Environment Threshing Department Supervisor Mcfp * Facility Name [facility] * ADLs Partial Dependent * Partial ADLs (Assistance needed) Ambulation Bathing Medication Management Toileting * Equipment Oxygen * Other Equipment All provided by [facility] * List name and contact numbers for known caregivers / representatives who currently or will assist patient after discharge: Jes Oh - [facility] - [phone] Ewelina Oh - [phone] [facility] [phone] * Verbal permission to speak to the caregivers and representatives has been obtained from the patient. Yes * Additional services required to return to the preadmission environment? No * Can the patient safely return to the preadmission environment? Yes * Has this patient been hospitalized within the prior 30 days at any hospital? Yes External Providers External Provider: [facility] Next Contact Date: Service Request Date: Service Type: Resolution: Reviewer: Comments: Coverage Notice Reviewer: [id number] Clovis Fonseca Notice Issued Date-Time: 04/17/2020 15:45 Notice Type: Patient Choice Letter Notice Delivered To: Patient Relationship to Patient: Self Pattern Grader Cutter Name: Delivery Method: HAND - Hand Delivered Arlette Days: Prior Verbal Notification: Recipient Understood Notice: Yes Recipient Signature: Yes Med Rec Note Co-signed by Attending: Coverage Notice Comment: NOAH for [facility] Last DP export: 04/17/20 2:52 pm Patient Name: ODETTE OH Page 41948 at 1009 All edits/amendments must be made on the electronic document DICTATION DATE: 04/18/20 1008 MANAGER SECURITY: [facility] 04/18/20 1008 RPT#: [id number] DC DATE: STATUS: ADM IN [facility] [address] [place] [address] END OF REPORT
--- NOTE | 2020-04-18 10:16 | MORECARE ---
CASE MANAGEMENT DISCHARGE SUMMARY PATIENT: ODETTE OH UNIT: [id number] ADM DATE: 04/11/20 AGE: 59 : 64 SEX: M ROOM/BED: D.2107 AUTHOR: MARU,DOC PHYSICIAN: REFERRING PHYSICIAN: TRACY RED DO DATE OF SERVICE: 04/18/20 Discharge Plan Patient Name: ODETTE OH Facility: [facility]:[place] : 1960 Planned Disposition: Nursing Facility [facility] Cert Anticipated Discharge Date: Discharge Date: Expected LOS: Initial Reviewer: [id number] Initial Review Date: 04/17/2020 Generated: 04/18/20 11:15 am DCP- Discharge Planning Updated by [email or web address]: Natalia Fonseca on 04/17/20 2:[address] Patient Name: ODETTE OH Admission Status: ER Accout number: [id number] Admission Date: 04-11-2020 : 1960 Admission Diagnosis:END STAGE RENAL DISEASE Attending: SHANTEL Current LOS: 6 Anticipated DC Date: Planned Disposition: Nursing Facility [facility] Cert Primary Insurance: MEDICAID [place] Discharge Planning Comments: CM met with patient to complete initial dc planning assessment. CM educated patient on the CM role and verbal consent given by patient to complete assessment. Patient lives at [facility] in a senior living bed, states he has been there about 6 months. At discharge patient plans to return and feels this is a safe discharge. CM discussed availability of home health, rehab services, and medical equipment. Patient denied known discharge needs at this time. He states he can ride the [place] transport when discharged. I called [facility] at [phone], but no one answered the phone. CM will continue to follow and will assist as needed with dc plans/needs. [facility] - phone [phone] Fax - [phone] Sucker Machine Operator: Natalia Fonseca DCPIA - Discharge Planning Initial Assessment Updated by [id number]: Natalia Fonseca on 04/17/20 2:58 pm * Is the patient Alert and Oriented? Yes * How many steps to enter\exit or inside your home? 0/0 * PCP Dr. Holland in [place] * Pharmacy [facility] - * Preadmission Environment Scheduler Custodial * Facility Name [facility] * ADLs Partial Dependent * Partial ADLs (Assistance needed) Ambulation Bathing Medication Management Toileting * Equipment Oxygen * Other Equipment All provided by [facility] * List name and contact numbers for known caregivers / representatives who currently or will assist patient after discharge: Jes Oh - [facility] - [phone] Ewelina Oh - [phone] [facility] [phone] * Verbal permission to speak to the caregivers and representatives has been obtained from the patient. Yes * Additional services required to return to the preadmission environment? No * Can the patient safely return to the preadmission environment? Yes * Has this patient been hospitalized within the prior 30 days at any hospital? Yes External Providers External Provider: [facility] Next Contact Date: Service Request Date: Service Type: Resolution: Reviewer: Comments: Coverage Notice Reviewer: [id number] Clovis Fonseca Notice Issued Date-Time: 04/17/2020 15:45 Notice Type: Patient Choice Letter Notice Delivered To: Patient Relationship to Patient: Self Nurse Practitioner Adult Name: Delivery Method: HAND - Hand Delivered Arlette Days: Prior Verbal Notification: Recipient Understood Notice: Yes Recipient Signature: Yes Med Rec Note Co-signed by Attending: Coverage Notice Comment: NOAH for [facility] Last DP export: 04/18/20 9:09 am Patient Name: ODETTE OH Page 54998 at 1016 All edits/amendments must be made on the electronic document DICTATION DATE: 04/18/20 1015 TV TECHNICIAN: [facility] 04/18/20 1015 RPT#: [id number] DC DATE: STATUS: ADM IN [facility] [address] [place] [address] END OF REPORT
--- NOTE | 2020-04-18 10:22 | MORECARE ---
CASE MANAGEMENT DISCHARGE SUMMARY PATIENT: ODETTE OH UNIT: [id number] ADM DATE: 04/11/20 AGE: 59 : 64 SEX: M ROOM/BED: D.3185 AUTHOR: MARU,DOC PHYSICIAN: REFERRING PHYSICIAN: TRACY RED DO DATE OF SERVICE: 04/18/20 Discharge Plan Patient Name: ODETTE OH Facility: [facility]:[place] : 1960 Planned Disposition: Nursing Facility [facility] Cert Anticipated Discharge Date: Discharge Date: Expected LOS: Initial Reviewer: [id number] Initial Review Date: 04/17/2020 Generated: 04/18/20 11:21 am Comments DCP- Discharge Planning Updated by [email or web address]: Natalia Fonseca on 04/18/20 9:[address] I called [facility] and spoke with Faustina and informed her of anticipated discharge tomorrow. Faustina states she will talk with security administrator to see if they can have a transporter pick him up, otherwise he will need to transport by nonemergent EMS. Clinical faxed to [facility] at [phone]. CM will continue to follow and assist with discharge planning/needs. DCP- Discharge Planning Updated by [id number]: Natalia Fonseca on 04/17/20 2:[address] Patient Name: ODETTE OH Admission Status: ER Accout number: [id number] Admission Date: 04-11-2020 : 1960 Admission Diagnosis:END STAGE RENAL DISEASE Attending: SHANTEL Current LOS: 6 Anticipated DC Date: Planned Disposition: Nursing Facility [facility] Cert Primary Insurance: MEDICAID [place] Discharge Planning Comments: CM met with patient to complete initial dc planning assessment. CM educated patient on the CM role and verbal consent given by patient to complete assessment. Patient lives at [facility] in a geoint analyst bed, states he has been there about 6 months. At discharge patient plans to return and feels this is a safe discharge. CM discussed availability of home health, rehab services, and medical equipment. Patient denied known discharge needs at this time. He states he can ride the [place] transport when discharged. I called [facility] at [phone], but no one answered the phone. CM will continue to follow and will assist as needed with dc plans/needs. Ian Garcia - phone [phone] Fax - [phone] Warm In: Natalia Fonseca DCPIA - Discharge Planning Initial Assessment Updated by [email or web address]: Natalia Fonseca on 04/17/20 2:58 pm * Is the patient Alert and Oriented? Yes * How many steps to enter\exit or inside your home? 0/0 * PCP Dr. Holland in [place] * Pharmacy [facility] - * Preadmission Environment Clearance Diver Retirement * Facility Name [facility] * ADLs Partial Dependent * Partial ADLs (Assistance needed) Ambulation Bathing Medication Management Toileting * Equipment Oxygen * Other Equipment All provided by [facility] H * List name and contact numbers for known caregivers / representatives who currently or will assist patient after discharge: Jes Oh - [facility] - [phone] Ewelina Kaila - [phone] [place] [phone] * Verbal permission to speak to the caregivers and representatives has been obtained from the patient. Yes * Additional services required to return to the preadmission environment? No * Can the patient safely return to the preadmission environment? Yes * Has this patient been hospitalized within the prior 30 days at any hospital? Yes Coverage Notice Reviewer: [id number] - Natalia Fonseca Notice Issued Date-Time: 04/17/2020 15:45 Notice Type: Patient Choice Letter Notice Delivered To: Patient Relationship to Patient: Self Supervisor Roller Printing Name: Delivery Method: HAND - Hand Delivered Arlette Days: Prior Verbal Notification: Recipient Understood Notice: Yes Recipient Signature: Yes Med Rec Note Co-signed by Attending: Coverage Notice Comment: NOAH for [facility] Last DP export: 04/18/20 9:15 am Patient Name: ODETTE OH Page 93690 at 1022 All edits/amendments must be made on the electronic document DICTATION DATE: 04/18/20 1021 TRANSFERRER: [facility] 04/18/20 1021 RPT#: [id number] DC DATE: STATUS: ADM IN [facility] [address] [place] [address] END OF REPORT
--- NOTE | 2020-04-18 12:34 | NUR ---
Nutrition Follow-up: Pt not in room at time of visit this AM. Chart reviewed. Ate ~75% of breakfast this AM. Diet: Renal PO intake: 53% avg x 10 meals Wt: 158# (04/12) Labs noted: K+ 4.0, Glu 142, Ca 8.4, PO4 6.1, Alb 3.0 Meds noted: Phoslo, Nephrovite, Calcitriol -Encourage PO intake and honor food preferences within diet restrictions. -Monitor wt. -RD following.
[2020-04-18 13:38] VITALS: BP 136/77
--- NOTE | 2020-04-18 19:00 | NUR ---
REPORT RECEIVED. BEDSIDE SHIFT REPORT COMPLETE. PT IN BED WATCHING TV, NO S/S OF DISTRESS OBSERVED. NO NEEDS EXPRESSED. CALL LIGHT IN REACH. WILL CPOC.
[2020-04-18 22:33] VITALS: BP 149/77
[2020-04-19 04:39] VITALS: BP 136/78
[2020-04-19 05:40] LABS: BASOPHILS 0.2 % (0-2); EOSINOPHILS 0.7 % (0-7); HEMATOCRIT 34.8 % (42.0-54.0); HEMOGLOBIN 10.7 g/dL (13.5-17.5); IMMATURE GRANULOCYTES 0.4 % (0-5); MCH 29.6 pg (26.0-34.0); MCHC 30.7 g/dL (31.0-37.0); MCV 96.4 fL (80.0-100.0); MEAN PLATELET VOLUME 9.2 fL (7.4-10.4); MONOCYTES 18.6 % (2-11); NEUTROPHILS 52.1 % (40-80); PLATELET COUNT 206 10x3/uL (130-400); RBC 3.61 10x6/uL (4.20-6.10); RDW 16.7 % (11.5-14.5); WBC 5.4 10x3/uL (4.8-10.8)
[2020-04-19 06:05] LABS: ALBUMIN 3.3 g/dL (3.4-5.0); ANION GAP 15.4 mmol/L (8-16); BILIRUBIN - TOTAL 0.36 mg/dL (0.2-1.3); CALCIUM 9.1 mg/dL (8.5-10.1); CARBON DIOXIDE 27.5 mmol/L (21.0-32.0); CREATININE - SERUM 7.2 mg/dL (0.6-1.3); POTASSIUM - SERUM 3.9 mmol/L (3.5-5.1); PROTEIN - SERUM 9.3 g/dL (6.4-8.2)
--- NOTE | 2020-04-19 08:00 | NUR ---
ALERT AND ORIENTED X4. O2 4L N/C W/O DISTRESS. LUNGS DIMINISHED X4 ANTERIOR. ENCOURAGED TO USE CALL LIGHT FOR ASSIST.
[2020-04-19 08:36] VITALS: BP 154/82
[2020-04-19] MEDS ORDERED: MOBIC7.5 MG PO (09:27)
--- NOTE | 2020-04-19 10:04 | MORECARE ---
CASE MANAGEMENT DISCHARGE SUMMARY PATIENT: ODETTE OH UNIT: [id number] ADM DATE: 04/11/20 AGE: 59 : 64 SEX: M ROOM/BED: D.2108 AUTHOR: MARU,DOC PHYSICIAN: REFERRING PHYSICIAN: TRACY RED DO DATE OF SERVICE: 04/19/20 Discharge Plan Patient Name: ODETTE OH Facility: [facility]:[place] : 1960 Planned Disposition: Nursing Facility [facility] Cert Anticipated Discharge Date: Discharge Date: Expected LOS: Initial Reviewer: [email or web address] Initial Review Date: 04/17/2020 Generated: 04/19/20 11:03 am Comments DCP- Discharge Planning Updated by [email or web address]: Karissa Sales on 04/19/20 9:[address] CM called [facility] at [phone] for discharge and spoke with Lisa. Lisa states the patient will need to be transported by EMS. The patient will return to a [facility] penitentiary bed. Nursing can call report to [phone]. The patient will return to [address] [place] [address] ([facility]). Karissa Sales MSN,RN,CM DCP- Discharge Planning Updated by [id number]: Natalia Fonseca on 04/18/20 9:[address] I called [facility] and spoke with Faustina and informed her of anticipated discharge tomorrow. Faustina states she will talk with [facility] administrator to see if they can have a transporter pick him up, otherwise he will need to transport by nonemergent EMS. Clinical faxed to [facility] at [phone]. CM will continue to follow and assist with discharge planning/needs. DCP- Discharge Planning Updated by [email or web address]: Natalia Fonseca on 04/17/20 2:[address] Patient Name: ODETTE OH Admission Status: ER Accout number: [id number] Admission Date: 04-11-2020 : 1960 Admission Diagnosis:END STAGE RENAL DISEASE Attending: SHANTEL Current LOS: 6 Anticipated DC Date: Planned Disposition: Nursing Facility [facility] Cert Primary Insurance: MEDICAID [place] Discharge Planning Comments: CM met with patient to complete initial dc planning assessment. CM educated patient on the CM role and verbal consent given by patient to complete assessment. Patient lives at [facility] in a penitentiary bed, states he has been there about 6 months. At discharge patient plans to return and feels this is a safe discharge. CM discussed availability of home health, rehab services, and medical equipment. Patient denied known discharge needs at this time. He states he can ride the [place] transport when discharged. I called [facility] at [phone], but no one answered the phone. CM will continue to follow and will assist as needed with dc plans/needs. [facility] - phone [phone] Fax - [phone] Ground Nuclear Weapons Assembly Officer: Natalia Fonseca DCPIA - Discharge Planning Initial Assessment Updated by [email or web address]: Natalia Fonseca on 04/17/20 2:58 pm * Is the patient Alert and Oriented? Yes * How many steps to enter\exit or inside your home? 0/0 * PCP Dr. Holland in [place] * Pharmacy [facility] - * Preadmission Environment International Accountant Fpc * Facility Name [facility] * ADLs Partial Dependent * Partial ADLs (Assistance needed) Ambulation Bathing Medication Management Toileting * Equipment Oxygen * Other Equipment All provided by [facility] * List name and contact numbers for known caregivers / representatives who currently or will assist patient after discharge: Jes Oh [facility] - [phone] Ewelina Oh - [phone] Helen [phone] * Verbal permission to speak to the caregivers and representatives has been obtained from the patient. Yes * Additional services required to return to the preadmission environment? No * Can the patient safely return to the preadmission environment? Yes * Has this patient been hospitalized within the prior 30 days at any hospital? Yes Coverage Notice Reviewer: [id number] - Natalia Fonseca Notice Issued Date-Time: 04/17/2020 15:45 Notice Type: Patient Choice Letter Notice Delivered To: Patient Relationship to Patient: Self Chief Jailer Name: Delivery Method: HAND - Hand Delivered Arlette Days: Prior Verbal Notification: Recipient Understood Notice: Yes Recipient Signature: Yes Med Rec Note Co-signed by Attending: Coverage Notice Comment: NOAH for [facility] Last DP export: 04/18/20 9:22 am Patient Name: ODETTE HO Page 58954 at 1004 All edits/amendments must be made on the electronic document DICTATION DATE: 04/19/201002 REFERENCE DATA EXPERT: [facility] 04/19/201002 RPT#: [id number] DC DATE: STATUS: ADM IN [facility] [address] [place] [address] END OF REPORT
--- NOTE | 2020-04-19 11:18 | NUR ---
IV DISCONTINUED WITH REPORT CALLED TO LYUDMILA LEVIN AT [facility]. PATIENT VERBALIZED UNDERSTANDING OF DISCHARGE INSTRUCTIONS AND DICHARGED [facility].
--- NOTE | 2020-04-22 16:01 | MORECARE ---
CASE MANAGEMENT DISCHARGE SUMMARY PATIENT: ODETTE OH UNIT: [id number] ADM DATE: 04/11/20 AGE: 59 : 64 SEX: M ROOM/BED: D.2108 AUTHOR: MARU,DOC PHYSICIAN: REFERRING PHYSICIAN: TRACY RED DO DATE OF SERVICE: 04/22/20 Discharge Plan Patient Name: ODETTE OH Facility: [facility]:[place] : 1960 Planned Disposition: Nursing Facility [facility] Cert Anticipated Discharge Date: Discharge Date: 04/19/2020 Expected LOS: Initial Reviewer: [email or web address] Initial Review Date: 04/17/2020 Generated: 04/22/20 5:00 pm Comments DCP- Discharge Planning Updated by [email or web address]: Karissa Sales on 04/19/20 9:[address] CM called [facility] at [phone] for discharge and spoke with Lisa. Lisa states the patient will need to be transported by EMS. The patient will return to a [facility] long term care social worker bed. Nursing can call report to [phone]. The patient will return to [address] [place] [address] ([facility]). Karissa Sales MSN,RN,CM DCP- Discharge Planning Updated by [email or web address]: Natalia Fonseca on 04/18/20 9:[address] I called [facility] and spoke with Faustina and informed her of anticipated discharge tomorrow. Faustina states she will talk with pension administrator to see if they can have a transporter pick him up, otherwise he will need to transport by nonemergent EMS. Clinical faxed to [facility] at [phone]. CM will continue to follow and assist with discharge planning/needs. DCP- Discharge Planning Updated by [id number]: Natalia Fonseca on 04/17/20 2:[address] Patient Name: ODETTE OH Admission Status: ER Accout number: [id number] Admission Date: 04-11-2020 : 1960 Admission Diagnosis:END STAGE RENAL DISEASE Attending: SHANTEL Current LOS: 6 Anticipated DC Date: Planned Disposition: Nursing Facility [facility] Cert Primary Insurance: MEDICAID [place] Discharge Planning Comments: CM met with patient to complete initial dc planning assessment. CM educated patient on the CM role and verbal consent given by patient to complete assessment. Patient lives at [facility] in a chcf bed, states he has been there about 6 months. At discharge patient plans to return and feels this is a safe discharge. CM discussed availability of home health, rehab services, and medical equipment. Patient denied known discharge needs at this time. He states he can ride the [place] transport when discharged. I called [facility] at [phone], but no one answered the phone. CM will continue to follow and will assist as needed with dc plans/needs. [facility] - phone [phone] Fax - [phone] Electrical Products Sales Engineer: Natalia Fonseca DCPIA - Discharge Planning Initial Assessment Updated by [email or web address]: Natalia Fonseca on 04/17/20 2:58 pm * Is the patient Alert and Oriented? Yes * How many steps to enter\exit or inside your home? 0/0 * PCP Dr. Holland in [place] * Pharmacy [facility] - * Preadmission Environment Intermediate Shelter * Facility Name [facility] * ADLs Partial Dependent * Partial ADLs (Assistance needed) Ambulation Bathing Medication Management Toileting * Equipment Oxygen * Other Equipment All provided by [facility] H * List name and contact numbers for known caregivers / representatives who currently or will assist patient after discharge: Jes Oh [facility] - [phone] Ewelina Oh [phone] Helen [phone] * Verbal permission to speak to the caregivers and representatives has been obtained from the patient. Yes * Additional services required to return to the preadmission environment? No * Can the patient safely return to the preadmission environment? Yes * Has this patient been hospitalized within the prior 30 days at any hospital? Yes Coverage Notice Reviewer: [id number] - Natalia Fonseca Notice Issued Date-Time: 04/17/2020 15:45 Notice Type: Patient Choice Letter Notice Delivered To: Patient Relationship to Patient: Self Carpet Measurer Name: Delivery Method: HAND - Hand Delivered Arlette Days: Prior Verbal Notification: Recipient Understood Notice: Yes Recipient Signature: Yes Med Rec Note Co-signed by Attending: Coverage Notice Comment: NOAH for [facility] Last DP export: 04/19/20 9:04 am Patient Name: ODETTE OH Page 69720 at 1601 All edits/amendments must be made on the electronic document DICTATION DATE: 04/22/201599 BLOCK BREAKER OPERATOR: [facility] 04/22/201599 RPT#: [id number] DC DATE:04/19/20 STATUS: DIS IN [facility] [address] [place] [address] END OF REPORT
== END 2020-04-19 11:20 | DRG 682 ==
LOC: D.ER 01:50 → D.ICU 05:49 → D.M2 04-16 16:01
PROVIDERS: Family Medicine; ADMIT Internal Medicine; ATTEND Internal Medicine
DX: I12.0 Hypertensive chronic kidney disease with stage 5 chronic kidney disease or end stage renal disease (principal); N18.6 End stage renal disease; J18.9 Pneumonia, unspecified organism; Z99.2 Dependence on renal dialysis; E87.79 Other fluid overload; Z91.14 Patient's other noncompliance with medication regimen; Z91.19 Patient's noncompliance with other medical treatment and regimen; D63.1 Anemia in chronic kidney disease; E87.5 Hyperkalemia

== ENCOUNTER 2020-12-04 15:10 | Inpatient (IN) | payer MEDICAID ==
[~2020-12-04] VITALS: Ht 177.8 cm; Wt 73.9 kg
[~2020-12-04 15:10] MED LIST changes: +MOBIC7.5 MG PO
[2020-12-04 15:41] LABS: BASOPHILS 0.1 % (0-2); EOSINOPHILS 0.4 % (0-7); HEMOGLOBIN 11.8 g/dL (13.5-17.5); IMMATURE GRANULOCYTES 0.1 % (0-5); LYMPHOCYTE ABS# 0.82 10x3/uL (1.32-3.57); LYMPHOCYTES 9.8 % (15-50); MCH 30.2 pg (26.0-34.0); MCHC 31.9 g/dL (31.0-37.0); MCV 94.6 fL (80.0-100.0); MEAN PLATELET VOLUME 10.4 fL (7.4-10.4); MONOCYTES 8.8 % (2-11); NEUTROPHIL ABS# 6.79 10x3/uL (1.78-5.38); NEUTROPHILS 80.8 % (40-80); PLATELET COUNT 110 10x3/uL (130-400); RBC 3.91 10x6/uL (4.20-6.10); WBC 8.4 10x3/uL (4.8-10.8)
[2020-12-04 15:55] LABS: APTT 37.5 SECONDS (22.8-39.4); INR 1.27 (0.85-1.17); PROTIME 14.7 SECONDS (11.6-15.0)
[2020-12-04 16:13] LABS: ALBUMIN 3.3 g/dL (3.4-5.0); BILIRUBIN - TOTAL 0.6 mg/dL (0.2-1.3); CALCIUM 7.4 mg/dL (8.5-10.1); CARBON DIOXIDE 19.6 mmol/L (21.0-32.0); CREATININE - SERUM 19.3 mg/dL (0.6-1.3); MAGNESIUM - SERUM 3.1 mg/dL (1.8-2.4); PROTEIN - SERUM 8.2 g/dL (6.4-8.2)
[2020-12-04 16:18] LABS: ANION GAP 27.6 mmol/L (8-16); POTASSIUM - SERUM 8.2 mmol/L (3.5-5.1); TROPONIN-I 0.155 ng/mL (0.000-0.060)
--- NOTE | 2020-12-04 21:15 | NUR ---
PT RECEIVED TO ROOM 2103 VIA STRETCHER ACCOMPANIED BY DIALYSIS NURSE, PT APPEARSD ASLEEP TRANSFERRED TO ROOM BED BY 3 PERSON TRANSFER, PT THEN AWAKENED AND STARTED ASKING FOR FOOD, TOOK O2 OFF NO DISTRESS NOTED. PT BECAME AGITATED WHEN HE WAS TOLD THAT WE DID NOT HAVE CHIPS THAT HE REQUESTED. STATING HE HAD MONEY TOB UY THEM HIMSELF. OTHER THAN AGITATION AT TIMES NO DISTRESS NOTED, LUE FISTULA, RESERVE LEFT ARM. LEFT NECK PIV. WILL CONTINE TO MONITOR
[2020-12-04 21:34] VITALS: BMI 23.4
[2020-12-04 22:10] LABS: CKMB 12.5 U/L (0.0-3.6); CREATINE KINASE 278 UL (21-232)
[2020-12-04 22:11] VITALS: BP 151/104
[2020-12-04 22:11] LABS: TROPONIN-I 0.178 ng/mL (0.000-0.060)
[2020-12-05 02:11] VITALS: BP 160/86
[2020-12-05 04:35] LABS: BASOPHILS 0.1 % (0-2); EOSINOPHILS 1.3 % (0-7); HEMATOCRIT 35.8 % (42.0-54.0); HEMOGLOBIN 11.5 g/dL (13.5-17.5); IMMATURE GRANULOCYTES 0.3 % (0-5); LYMPHOCYTE ABS# 1.19 10x3/uL (1.32-3.57); MCH 30.3 pg (26.0-34.0); MCHC 32.1 g/dL (31.0-37.0); MCV 94.2 fL (80.0-100.0); MEAN PLATELET VOLUME 10.1 fL (7.4-10.4); MONOCYTES 11.5 % (2-11); NEUTROPHIL ABS# 4.87 10x3/uL (1.78-5.38); NEUTROPHILS 69.8 % (40-80); PLATELET COUNT 113 10x3/uL (130-400); RDW 14.9 % (11.5-14.5)
[2020-12-05 05:06] LABS: ALBUMIN 3.1 g/dL (3.4-5.0); ALKALINE PHOSPHATASE 83 U/L (30-120); ALT (SGPT) 22 U/L (10-68); BILIRUBIN - TOTAL 0.56 mg/dL (0.2-1.3); CALCIUM 7.2 mg/dL (8.5-10.1); CHLORIDE - SERUM 100 mmol/L (98-107); CKMB 8.2 U/L (0.0-3.6); CREATINE KINASE 220 UL (21-232); GLUCOSE 78 mg/dL (74-106); MAGNESIUM - SERUM 2.7 mg/dL (1.8-2.4); PROTEIN - SERUM 7.9 g/dL (6.4-8.2); SODIUM 140 mmol/L (136-145)
[2020-12-05 05:22] LABS: CALC OSMOLALITY 303 mosm/kg (275-300); CARBON DIOXIDE 27.1 mmol/L (21.0-32.0); CREATININE - SERUM 14.3 mg/dL (0.6-1.3); POTASSIUM - SERUM 5.9 mmol/L (3.5-5.1); UREA NITROGEN 85 mg/dL (7-18); eGFR NON AFRICAN AMERICAN 4 mL/min (90-120)
[2020-12-05 05:24] LABS: TROPONIN-I 0.188 ng/mL (0.000-0.060)
[2020-12-05 05:25] VITALS: BP 155/91
[2020-12-05 08:42] VITALS: BP 138/90
[2020-12-05 10:41] LABS: CKMB 6.5 U/L (0.0-3.6); CREATINE KINASE 214 UL (21-232); TROPONIN-I 0.169 ng/mL (0.000-0.060)
[2020-12-05 12:41] VITALS: Ht 177.8 cm; Wt 73.9 kg
--- NOTE | 2020-12-05 14:10 | MORECARE ---
CASE MANAGEMENT DISCHARGE SUMMARY PATIENT: ODETTE OH UNIT: [id number] ADM DATE: 12/04/20 AGE: 60 : 64 SEX: M ROOM/BED: D.2104 AUTHOR: MARU,DOC PHYSICIAN: REFERRING PHYSICIAN: YANI CABRALES DO DATE OF SERVICE: 12/05/20 Case Management Discharge Planning Summary COMMENTS ENTERED DATE: 12/05/20 13:59 CT COMMENT TYPE: Discharge Planning REVIEWER: Natalia Fonseca CM met with patient and he states he lives at [facility] and plans to return on discharge today after dialysis. I called and spoke with [facility] and she states they will pick pulling machine tender after dialysis today. Nurse to call when ready. He will discharge to a [facility] (Medicaid) bed. DCP REVIEW SUMMARY ANTICIPATED D/C DATE: 12/05/2020 EXPECTED LOS : 1 CASE STATUS: DCP Initiated INITIAL REVIEW: 12/05/2020 INITIAL REVIEWER: Natalia Fonseca FINAL DISCHARGE DISPOSITION: : FINAL REVIEWER: FINAL REVIEW DATE: DCP [employer] Questions & Answers QUESTION: ANSWER : PATIENT: ODETTE OH ENCOUNTER: [id number] MEDICAL RECORD#: [id number] ADMISSION DATE: 12/04/2020 DISCHARGE DATE: ATTENDING MD: YANI CAAL : AGE: 60 MARITAL STATUS: S DC PLAN ID: [id number] FACILITY: [facility] PRINTED ON: 12/05/20 14:10 CT All edits/amendments must be made on the electronic document DICTATION DATE: 12/05/201409 SERVICE DESK DIRECTOR: [facility] 12/05/20 141 RPT#: [id number] DC DATE: STATUS: ADM IN [facility] [address] [place] [address] END OF REPORT
--- NOTE | 2020-12-05 15:38 | NUR ---
CALLED REPORT TO PARISA CLIFFORD AT [facility]. CALLED TRANSPORT. PT TRANSPORTED ON 4 L VIA WHEELCHAIR. SPO2 SAT 92 ON 4 L.
--- NOTE | 2020-12-05 15:54 | MORECARE ---
CASE MANAGEMENT DISCHARGE SUMMARY PATIENT: ODETTE OH UNIT: [id number] ADM DATE: 12/04/20 AGE: 60 : 64 SEX: M ROOM/BED: D.2104 AUTHOR: MARU,DOC PHYSICIAN: REFERRING PHYSICIAN: YANI CABRALES DO DATE OF SERVICE: 12/05/20 Case Management Discharge Planning Summary COMMENTS ENTERED DATE: 12/05/20 13:59 CT COMMENT TYPE: Discharge Planning REVIEWER: Natalia Fonseca CM met with patient and he states he lives at [facility] and plans to return on discharge today after dialysis. I called and spoke with [facility] and she states they will pick up truck driver after dialysis today. Nurse to call when ready. He will discharge to a engraver letter (Medicaid) bed. DCP REVIEW SUMMARY ANTICIPATED D/C DATE: 12/05/2020 EXPECTED LOS : 1 CASE STATUS: DCP Initiated INITIAL REVIEW: 12/05/2020 INITIAL REVIEWER: Natalia Fonseca FINAL DISCHARGE DISPOSITION: : FINAL REVIEWER: FINAL REVIEW DATE: DCP Focus Questions & Answers QUESTION: ANSWER : PATIENT: ODETTE OH ENCOUNTER: [id number] MEDICAL RECORD#: [id number] ADMISSION DATE: 12/04/2020 DISCHARGE DATE: 12/05/2020 ATTENDING MD: YANI CAAL : AGE: 60 MARITAL STATUS: S DC PLAN ID: [id number] FACILITY: [facility] PRINTED ON: 12/05/20 15:54 CT All edits/amendments must be made on the electronic document DICTATION DATE: 12/05/20 1554 HANDTOOLS REPAIRER: LUH 12/05/20 1554 RPT#: [id number] DC DATE:12/05/20 STATUS: DIS IN [facility] [address] [place] [address] END OF REPORT
--- NOTE | 2020-12-07 17:41 | MORECARE ---
CASE MANAGEMENT DISCHARGE SUMMARY PATIENT: ODETTE OH UNIT: [id number] ADM DATE: 12/04/20 AGE: 60 : 64 SEX: M ROOM/BED: D.2104 AUTHOR: MARU,DOC PHYSICIAN: REFERRING PHYSICIAN: YANI CABRALES DO DATE OF SERVICE: 12/07/20 Case Management Discharge Planning Summary COMMENTS ENTERED DATE: 12/05/20 13:59 CT COMMENT TYPE: Discharge Planning REVIEWER: Natalia Fonseca CM met with patient and he states he lives at [facility] and plans to return on discharge today after dialysis. I called and spoke with [facility] and she states they will sheepskin pickler after dialysis today. Nurse to call when ready. He will discharge to a terminologist (Medicaid) bed. DCP REVIEW SUMMARY ANTICIPATED D/C DATE: 12/05/2020 EXPECTED LOS : 1 CASE STATUS: DCP Complete INITIAL REVIEW: 12/05/2020 INITIAL REVIEWER: Natalia Fonseca FINAL DISCHARGE DISPOSITION: 66 : Discharge/Trans to a Nursing Facility Certified under Medicaid but not Medicare FINAL REVIEWER: Natalia Fonseca FINAL REVIEW DATE: 12/07/2020 IAP Focus Questions & Answers QUESTION: ANSWER : PATIENT: ODETTE OH ENCOUNTER: [id number] MEDICAL RECORD#: [id number] ADMISSION DATE: 12/04/2020 DISCHARGE DATE: 12/05/2020 ATTENDING MD: YANI CAAL : AGE: 60 MARITAL STATUS: S DC PLAN ID: [id number] FACILITY: [facility] PRINTED ON: 12/07/20 17:41 CT All edits/amendments must be made on the electronic document DICTATION DATE: 12/07/201740 CORRECTIONAL OFFICER CAPTAIN: [facility]UH 12/07/201740 RPT#: [id number] DC DATE:12/05/20 STATUS: DIS IN [facility] [address] [place] [address] END OF REPORT
--- NOTE | 2020-12-08 12:53 | MORECARE ---
CASE MANAGEMENT DISCHARGE SUMMARY PATIENT: ODETTE OH UNIT: [id number] ADM DATE: 12/04/20 AGE: 60 : 64 SEX: M ROOM/BED: D.2104 AUTHOR: MARU,DOC PHYSICIAN: REFERRING PHYSICIAN: YANI CABRALES DO DATE OF SERVICE: 12/08/20 Case Management Discharge Planning Summary COMMENTS ENTERED DATE: 12/05/20 13:59 CT COMMENT TYPE: Discharge Planning REVIEWER: Natalia Fonseca CM met with patient and he states he lives at [facility] and plans to return on discharge today after dialysis. I called and spoke with [facility] and she states they will chart picker after dialysis today. Nurse to call when ready. He will discharge to a termite technician (Medicaid) bed. DCP REVIEW SUMMARY ANTICIPATED D/C DATE: 12/05/2020 EXPECTED LOS : 1 CASE STATUS: DCP Complete INITIAL REVIEW: 12/05/2020 INITIAL REVIEWER: Natalia Fonseca FINAL DISCHARGE DISPOSITION: 66 : Discharge/Trans to a Nursing Facility Certified under Medicaid but not Medicare FINAL REVIEWER: Natalia Fonseca FINAL REVIEW DATE: 12/07/2020 SDP Focus Questions & Answers QUESTION: ANSWER : PATIENT: ODETTE OH ENCOUNTER: [id number] MEDICAL RECORD#: [id number] ADMISSION DATE: 12/04/2020 DISCHARGE DATE: 12/05/2020 ATTENDING MD: YANI CAAL : AGE: 60 MARITAL STATUS: S DC PLAN ID: [id number] FACILITY: [facility] PRINTED ON: 12/08/20 12:52 CT All edits/amendments must be made on the electronic document DICTATION DATE: 12/08/20 125 PHARMACOLOGY TEACHER: DM 12/08/20 1252 RPT#: [id number] DC DATE:12/05/20 STATUS: DIS IN [facility] [address] [place] [address] END OF REPORT
== END 2020-12-05 15:39 | DRG 291 ==
LOC: D.ER 15:10 → D.M2 18:20 → D.SDCHOLD 12-05 11:51 → D.M2 12-05 11:56
PROVIDERS: Emergency Medicine; ADMIT Family Medicine; ATTEND Family Medicine
PROC: 5A1D70Z Performance of Urinary Filtration, Intermittent, Less than 6 Hours Per Day (ICD-10-PCS; principal; 2020-12-05)
DX: I13.2 Hypertensive heart and chronic kidney disease with heart failure and with stage 5 chronic kidney disease, or end stage renal disease (principal); J96.01 Acute respiratory failure with hypoxia; N18.6 End stage renal disease; I50.33 Acute on chronic diastolic (congestive) heart failure; I16.9 Hypertensive crisis, unspecified; F17.203 Nicotine dependence unspecified, with withdrawal; N25.81 Secondary hyperparathyroidism of renal origin; E87.5 Hyperkalemia; Z99.2 Dependence on renal dialysis; Z91.15 Patient's noncompliance with renal dialysis; D63.1 Anemia in chronic kidney disease; E83.41 Hypermagnesemia; K21.9 Gastro-esophageal reflux disease without esophagitis; F14.10 Cocaine abuse, uncomplicated; E11.22 Type 2 diabetes mellitus with diabetic chronic kidney disease; I25.10 Atherosclerotic heart disease of native coronary artery without angina pectoris; D69.6 Thrombocytopenia, unspecified

== ENCOUNTER 2020-12-20 14:23 | Inpatient (IN) | payer MEDICAID ==
[2020-12-20] VITALS (7 sets, daily range): BP systolic 128–181; BP diastolic 84–117; BMI 22.8
[~2020-12-20] VITALS: Ht 177.8 cm; Wt 72.1 kg
[2020-12-20 14:45] LABS: BASOPHILS 0.1 % (0-2); EOSINOPHILS 0.1 % (0-7); HEMATOCRIT 33.8 % (42.0-54.0); HEMOGLOBIN 10.9 g/dL (13.5-17.5); IMMATURE GRANULOCYTES 0.1 % (0-5); LYMPHOCYTE ABS# 0.95 10x3/uL (1.32-3.57); LYMPHOCYTES 12.3 % (15-50); MCH 29.5 pg (26.0-34.0); MCHC 32.2 g/dL (31.0-37.0); MCV 91.4 fL (80.0-100.0); MONOCYTES 4.5 % (2-11); NEUTROPHIL ABS# 6.42 10x3/uL (1.78-5.38); NEUTROPHILS 82.9 % (40-80); RDW 15.2 % (11.5-14.5); WBC 7.8 10x3/uL (4.8-10.8)
[2020-12-20 14:46] LABS: PLATELET COUNT 145 10x3/uL (130-400)
[2020-12-20 14:54] LABS: APTT 37.9 SECONDS (22.8-39.4); INR 1.35 (0.85-1.17); PROTIME 15.4 SECONDS (11.6-15.0)
[2020-12-20 15:17] LABS: ALBUMIN 3.5 g/dL (3.4-5.0); ALKALINE PHOSPHATASE 77 U/L (30-120); ALT (SGPT) 22 U/L (10-68); BILIRUBIN - TOTAL 0.65 mg/dL (0.2-1.3); CALC OSMOLALITY 324 mosm/kg (275-300); CALCIUM 6.7 mg/dL (8.5-10.1); CARBON DIOXIDE 17.8 mmol/L (21.0-32.0); CHLORIDE - SERUM 97 mmol/L (98-107); CKMB 19.1 U/L (0.0-3.6); CREATINE KINASE 400 UL (21-232); CREATININE - SERUM 22.2 mg/dL (0.6-1.3); GLUCOSE 124 mg/dL (74-106); PROTEIN - SERUM 8.9 g/dL (6.4-8.2); SODIUM 140 mmol/L (136-145); TROPONIN-I 0.164 ng/mL (0.000-0.060); eGFR NON AFRICAN AMERICAN 2 mL/min (90-120)
[2020-12-20 15:18] LABS: POTASSIUM - SERUM 7.7 mmol/L (3.5-5.1); UREA NITROGEN 138 mg/dL (7-18)
[2020-12-20 15:43] LABS: PRO BNP 304160 pg/mL (0-125)
--- NOTE | 2020-12-20 21:30 | NUR ---
PT FROM ED THEN TO HD SUITE, ARRIVED TO ROOM @ 1920, NO FAMILY AT BEDSIDE, HD NURSE REPORTS 3L OFF DURING HD. DR JOSE MIGUEL MUNSON ON PT, REPORTED ELEVATED BP, SAID OKAY TO GIVE DIET. PT WITH GLUCOSE 54, SANDWICH PLATE GIVEN, WILL RE-CHECK GLUCOSE. PT AWAKE AND ORIENTED TO SELF AND PLACE, REPORTS THE YEAR IS 2019 AND IS UNSURE HOW HE ARRIVED AT HOSPITAL OR WHY HE IS HERE, UNABLE TO NAME PRESIDENT. RE-ORIENTED PT AND DISCUSSED UNIT GUIDLINES AND HOW TO USE CALL LIGHT. PT WITH PIV TO LEFT EJ, SALINE LOCKED, PATENT WITH CAP IN PLACE. 02 VIA NC @4L. ADMISSION ASSESSMENT AND DATA COMPLETE. WILL CONT TO MONITOR. CALL LIGHT WITHIN REACH.
[2020-12-20 23:39] LABS: CREATINE KINASE 329 UL (21-232); POTASSIUM - SERUM 5.6 mmol/L (3.5-5.1)
[2020-12-20 23:40] LABS: TROPONIN-I 0.209 ng/mL (0.000-0.060)
[2020-12-21] VITALS (12 sets, daily range): BP systolic 115–152; BP diastolic 63–92
[2020-12-21 02:56] LABS: BASOPHILS 0 % (0-2); EOSINOPHILS 0.3 % (0-7); HEMATOCRIT 32.2 % (42.0-54.0); HEMOGLOBIN 10.5 g/dL (13.5-17.5); IMMATURE GRANULOCYTES 0.3 % (0-5); LYMPHOCYTE ABS# 1.14 10x3/uL (1.32-3.57); LYMPHOCYTES 14.3 % (15-50); MCH 29.6 pg (26.0-34.0); MCHC 32.6 g/dL (31.0-37.0); MCV 90.7 fL (80.0-100.0); MONOCYTES 6.5 % (2-11); NEUTROPHIL ABS# 6.25 10x3/uL (1.78-5.38); NEUTROPHILS 78.6 % (40-80); PLATELET COUNT 144 10x3/uL (130-400); RBC 3.55 10x6/uL (4.20-6.10); RDW 14.9 % (11.5-14.5)
[2020-12-21 03:34] LABS: ALBUMIN 3.2 g/dL (3.4-5.0); ALKALINE PHOSPHATASE 78 U/L (30-120); ALT (SGPT) 25 U/L (10-68); BILIRUBIN - TOTAL 0.57 mg/dL (0.2-1.3); CARBON DIOXIDE 21.2 mmol/L (21.0-32.0); CHLORIDE - SERUM 99 mmol/L (98-107); CKMB 11.6 U/L (0.0-3.6); CREATINE KINASE 303 UL (21-232); CREATININE - SERUM 17.1 mg/dL (0.6-1.3); PROTEIN - SERUM 8.3 g/dL (6.4-8.2); SODIUM 139 mmol/L (136-145); eGFR NON AFRICAN AMERICAN 3 mL/min (90-120)
[2020-12-21 03:35] LABS: CALC OSMOLALITY 305 mosm/kg (275-300); GLUCOSE 76 mg/dL (74-106); UREA NITROGEN 94 mg/dL (7-18)
--- NOTE | 2020-12-21 07:00 | NUR ---
CRITICAL POTASSIUM CALLED TO DR. HOUGH. STATES HE WILL DIALIZE HIM AGAIN TODAY. NO FURTHER ORDERS AT THIS TIME.
--- NOTE | 2020-12-21 07:07 | NUR ---
PT SITTING UP IN BED. RR EVEN AND UNLABORED. DENIES NEEDS OR PAIN AT THIS TIME. BED IN LOWEST [OSITION.
[2020-12-21 08:49] LABS: CKMB 10.9 U/L (0.0-3.6); CREATINE KINASE 323 UL (21-232)
[2020-12-21 08:50] LABS: TROPONIN-I 0.208 ng/mL (0.000-0.060)
--- NOTE | 2020-12-21 13:56 | NUR ---
Received on transfer from ICU at this time, oriented to unit, oriented to room, oriented to bed controls, obtained VS, just came from dialysis where dialysis nurse reports removing 2.5 liters of fluid, currently lying in bed with eyes closed, respirations slow/deep/even, rouses easily with verbal stimulus, T/R self ad astrid, cont of B/B with BSC with assist ad astrid, denies pain/other discomfort at this time, call light/phone/water within reach, no s/s of acute distress observed.
--- NOTE | 2020-12-21 14:20 | NUR ---
PT DONE WITH DIALYSIS. PER DIALYSIS NURSE, 2.5 L OFF. PT TOLERATED WELL. EYES CLOSED, RR EVEN AND UNLABORED AT THIS TIME. WILL AROUSE TO LIGHT TOUCH. LEFT VIA BED. REPORT GIVEN TO WALLY.
[2020-12-22] VITALS: BP 136/75
--- NOTE | 2020-12-22 06:18 | NUR ---
I have reviewed this patient and I concur with the Shift Assessment completed by the Licensed Practical Nurse today this shift.
[2020-12-22 07:10] LABS: BASOPHILS 0 % (0-2); EOSINOPHILS 0.6 % (0-7); HEMATOCRIT 31.4 % (42.0-54.0); IMMATURE GRANULOCYTES 0.4 % (0-5); MCH 30.2 pg (26.0-34.0); MCHC 31.8 g/dL (31.0-37.0); MEAN PLATELET VOLUME 10.2 fL (7.4-10.4); MONOCYTES 11.6 % (2-11); NEUTROPHIL ABS# 5.25 10x3/uL (1.78-5.38); NEUTROPHILS 73.4 % (40-80); PLATELET COUNT 140 10x3/uL (130-400); RBC 3.31 10x6/uL (4.20-6.10); WBC 7.2 10x3/uL (4.8-10.8)
[2020-12-22 07:11] LABS: MCV 94.9 fL (80.0-100.0)
[2020-12-22 07:23] LABS: ALBUMIN 2.9 g/dL (3.4-5.0); BILIRUBIN - TOTAL 0.4 mg/dL (0.2-1.3); CALCIUM 7.3 mg/dL (8.5-10.1); PROTEIN - SERUM 7.6 g/dL (6.4-8.2)
--- NOTE | 2020-12-22 07:30 | NUR ---
Lying in bed with HOB elevated, T/R self ad astrid, cont of B/B with BRPs per self ad astrid, c/o aching pain in LLQ rated 7/10, medicated as ordered (see MAR), call light/phone/water within reach, no s/s of acute distress observed.
--- NOTE | 2020-12-22 07:41 | NUR ---
CKMB and Troponin are elevated, paged MAIL MACHINE OPERATORJh Elias, waiting for return call.
[2020-12-22 07:46] LABS: ANION GAP 19.3 mmol/L (8-16); CARBON DIOXIDE 27.6 mmol/L (21.0-32.0); CREATININE - SERUM 11.6 mg/dL (0.6-1.3); POTASSIUM - SERUM 4.9 mmol/L (3.5-5.1)
--- NOTE | 2020-12-22 07:53 | NUR ---
SUKH Elias called, reported labs to her NNO at this time.
[2020-12-22 08:23] VITALS: BP 128/63
--- NOTE | 2020-12-22 10:38 | NUR ---
Off unit for dialysis in stable condition via bed accompanied by hospital staff.
[2020-12-22 13:10] VITALS: Ht 177.8 cm; Wt 72.1 kg
--- NOTE | 2020-12-22 14:43 | NUR ---
Rcvd report from [place] in dialysis, states took off 4 liters of fluid today.
--- NOTE | 2020-12-22 15:00 | NUR ---
Returned to unit via bed in stable condition after dialysis accompanied by hospital staff at this time.
[2020-12-22 16:04] VITALS: BP 136/71
--- NOTE | 2020-12-22 18:18 | NUR ---
DIALYSIS TREATMENT TODAY. REMOVED 4 LITERS TOTAL, PATIENT TOLERATED WELL. NEW ORDERS TO TITRATE O2 TO KEEP SAT GREATER OR EQUAL TO 92%. TITRATED O2 TO 4L BY NC WITH O2 SAT 99%. ENDING B/P 132/75. REPORT CALLED TO WALLY MORRIS RN
[2020-12-22 20:56] VITALS: BP 130/74
[2020-12-23 01:48] VITALS: BP 120/57
--- NOTE | 2020-12-23 03:33 | NUR ---
[facility] CALLED AND ASKED THAT LOVANOX BE HELD DUE TO HEPRIN ORDERS. PUT ON HOLD WILL PASS ON IN AM REPORT TO CONSULT RENAL.
--- NOTE | 2020-12-23 03:39 | NUR ---
I have reviewed this patient and I concur with the Shift Assessment completed by the Licensed Practical Nurse today this shift.
[2020-12-23 05:26] VITALS: BP 130/70
[2020-12-23 05:26] LABS: BASOPHILS 0 % (0-2); EOSINOPHILS 0.7 % (0-7); HEMATOCRIT 34.7 % (42.0-54.0); HEMOGLOBIN 10.7 g/dL (13.5-17.5); IMMATURE GRANULOCYTES 0.2 % (0-5); LYMPHOCYTE ABS# 1.14 10x3/uL (1.32-3.57); LYMPHOCYTES 12.6 % (15-50); MCH 29.4 pg (26.0-34.0); MCHC 30.8 g/dL (31.0-37.0); MCV 95.3 fL (80.0-100.0); MEAN PLATELET VOLUME 9.9 fL (7.4-10.4); MONOCYTES 10.4 % (2-11); NEUTROPHIL ABS# 6.87 10x3/uL (1.78-5.38); NEUTROPHILS 76.1 % (40-80); PLATELET COUNT 154 10x3/uL (130-400); RBC 3.64 10x6/uL (4.20-6.10); RDW 14.6 % (11.5-14.5)
[2020-12-23 05:47] LABS: ALBUMIN 2.9 g/dL (3.4-5.0); ANION GAP 15.5 mmol/L (8-16); BILIRUBIN - TOTAL 0.39 mg/dL (0.2-1.3); CALCIUM 7.5 mg/dL (8.5-10.1); CARBON DIOXIDE 27.1 mmol/L (21.0-32.0); POTASSIUM - SERUM 4.6 mmol/L (3.5-5.1)
--- NOTE | 2020-12-23 07:10 | NUR ---
Lying in bed with HOB elevated 90 degrees with eyes closed, respirations are slow/shallow/even, rouses easily with verbal stimulus, T/R self ad astrid, cont of B/B with BRPs with assist ad astrid, denies pain/other discomforts at this time, call light/phone/water within reach, no s/s of acute distress observed.
[2020-12-23 07:42] VITALS: BP 135/70
--- NOTE | 2020-12-23 10:19 | NUR ---
Per Dr. Gary' request, spoke with lab who stated sample went out yesterday (12/22/20), relayed response to Dr. Gary.
--- NOTE | 2020-12-23 11:10 | NUR ---
Off unit for dialysis
--- NOTE | 2020-12-23 14:01 | NUR ---
GONE FOR ORDC
--- NOTE | 2020-12-23 14:10 | NUR ---
Returned to unit from dialysis
[2020-12-23 17:01] VITALS: BP 118/64
[2020-12-23 20:00] VITALS: BP 129/71
--- NOTE | 2020-12-23 20:00 | NUR ---
ROUNDS MADE ON THIS PT. HE MORE OR LESS IGNORED ME AND WAS WATCHING TV. HE HAD NO C/O PAIN AND DID NOT ASK FOR ANYTHING.
--- NOTE | 2020-12-23 21:20 | NUR ---
IN PT ROOM TO GIVE MEDS. PT DOES NOT HAVE AN IV ACCESS AND HE ISN'T INTERESTED IN ANYONE TRYING TO START ONE. PT IS WATCHING TV
[2020-12-24] VITALS: BP 129/63
--- NOTE | 2020-12-24 | NUR ---
PT WATCHING TV. DOESN'T HAVE MUCH TO SAY. HE DOES NOT C/O PAIN.
--- NOTE | 2020-12-24 03:13 | NUR ---
PT IS SLEEPING. NO C/O NO NEEDS
--- NOTE | 2020-12-24 05:04 | NUR ---
PT IS SLEEPING. NO C/O OR NEEDS
--- NOTE | 2020-12-24 07:10 | NUR ---
Lying in bed, awake/alert/oriented, T/R self ad astrid, cont of B/B with BRPs with assist ad astrid, c/o 05/24 generalized pain described as sharp, medicated as ordered (see MAR), call light/phone/water within reach, no s/s of acute distress observed.
[2020-12-24 07:43] LABS: BASOPHILS 0 % (0-2); EOSINOPHILS 0.6 % (0-7); HEMATOCRIT 34.4 % (42.0-54.0); HEMOGLOBIN 10.8 g/dL (13.5-17.5); IMMATURE GRANULOCYTES 0.3 % (0-5); LYMPHOCYTE ABS# 1.28 10x3/uL (1.32-3.57); LYMPHOCYTES 13.6 % (15-50); MCH 29.8 pg (26.0-34.0); MCHC 31.4 g/dL (31.0-37.0); MEAN PLATELET VOLUME 10.6 fL (7.4-10.4); MONOCYTES 13.5 % (2-11); NEUTROPHIL ABS# 6.79 10x3/uL (1.78-5.38); PLATELET COUNT 166 10x3/uL (130-400); RBC 3.62 10x6/uL (4.20-6.10); RDW 14.4 % (11.5-14.5); WBC 9.4 10x3/uL (4.8-10.8)
[2020-12-24 07:57] LABS: ALBUMIN 2.9 g/dL (3.4-5.0); BILIRUBIN - TOTAL 0.55 mg/dL (0.2-1.3); CALCIUM 7.6 mg/dL (8.5-10.1); CARBON DIOXIDE 29.8 mmol/L (21.0-32.0); CREATININE - SERUM 8.5 mg/dL (0.6-1.3); POTASSIUM - SERUM 4.8 mmol/L (3.5-5.1); PROTEIN - SERUM 8.1 g/dL (6.4-8.2)
[2020-12-24 08:27] VITALS: BP 128/76
--- NOTE | 2020-12-24 12:15 | EC ---
PATIENT:ODETTE OH DATE OF SERVICE: 12/20/20 SEX: M MEDICAL RECORD: [id number] DATE OF : 64 LOCATION:D.M2 D.213 AGE OF PATIENT: 60 ADMISSION DATE: 12/20/20 REFERRING PHYSICIAN: INTERPRETING PHYSICIAN: THERESA HERRON MD ECHOCARDIOGRAM REPORT ECHO CHARGES 5 ECHO LIMITED Date: 12/23/20 CLINICAL DIAGNOSIS: CARDIOMYOPATHY ECHOCARDIOGRAPHIC MEASUREMENTS (adult normal given) AC root (d.<3.7cm) 0 cm LV Septum d (<1.2 cm> 0 cm Valve Excursion 0 cm LV Septum (systole) 0 cm Left Atria (s.<4.0cm> 0 cm LVPW d(<1.2cm) 0 cm RV (d.<2.3cm) 0 cm LVPW (sytole) 0 cm LV diastole(<5.6CM) 0 cm MV E-F(>70mm/sec) 0 cm LV systole 0 cm LVOT Diameter 0 cm MV exc.(>10mm) 0 cm Est.ejection fraction (50-75%) 0 % DOPPLER: LVIT cm/sec A cm/sec E 0 cm/sec LA 0 cm/sec RVSP 36 mmHg LVOT 0 cm/sec AOP1/2T m/s Asc. Ao 0 cm/sec RVOT 0 cm/sec RA 0 cm/sec PA 0 cm/sec AV Gradient Peak 0 mmHg AV Mean 0 mmHg AV Area 0 cm MV Gradient Peak 0 mmHg MV Mean 0 mmHg MV Area 0 cm COMMENTS: Personal Health Coach: Cesar [facility] Customer Service Driver: 3 Dr. Parker TAPE# Pericardial Effusion N DATE OF SERVICE: 2D, color-flow, and Doppler only. FINDINGS: Grossly LVH appears present. LV internal dimensions are normal. Wall motion appears normal at 55%. Aortic valve has good valve excursion. No significant AI. Left atrium grossly appears normal. Mitral valve shows mitral annular calcification. Trivial MR. Right side is grossly normal. Trace TR. TRANSINT:[id number] Voice Confirmation ID: [id number] DOCUMENT ID: [id number] ECHOCARDIOGRAM REPORT [id number] ODETTE OH THERESA HERRON MD at 1215 CC: [id number] DICTATION DATE: 12/23/20 1451 RIM ROLLER OPERATOR: 12/23/20 2308 ADM IN [facility] [address] [place] [id number]
[2020-12-24 12:17] VITALS: BP 127/74
--- NOTE | 2020-12-24 14:16 | NUR ---
Nutrition Follow-up: Eating well overall; ate 100% of breakfast this AM. HD yesterday. Diet: Renal ADA No new wt; last wt: 159# (12/22) Labs noted: K+ 4.8, Ca 7.6, Alb 2.9 Meds noted: Florajen, Nephrovite, Protonix, Calcitriol -Encourage PO intake and honor food preferences within diet restrictions. -RD will follow up within 5-7 days if pt still admitted.
--- NOTE | 2020-12-24 15:40 | NUR ---
PATIENT REFUSED ALL MOBILITY.
[2020-12-24 17:57] VITALS: BP 115/52
--- NOTE | 2020-12-24 21:00 | NUR ---
PT IS LAYING QUIETLY IN BED WATCHING TV. NO C/O. PT TAKES HIS MEDS BUT REFUSES THE BACTROBAN TO HIS NOSE. ASSESSMENT COMPLETED. PT IS REALLY WANTING SOME CHIPS. HE SAYS HE HAD OVER 100$ WHEN HE CAME AND IT'S GONE?? SKIN IS W/D. FISTULA IN LEFT UPPER ARM WITH THRILL FELT. PT DOES NOT HAVE AN IV ASSESS. HIS MEDS ARE ALL PO.
[2020-12-24 23:28] VITALS: BP 126/79
[2020-12-25] VITALS: BP 119/59
--- NOTE | 2020-12-25 00:22 | NUR ---
RESTING QUIETLY IN ROOM W/O C/O
[2020-12-25 04:00] VITALS: BP 126/66
--- NOTE | 2020-12-25 05:31 | NUR ---
PT SLEEPING. NO C/O OR NEEDS.
[2020-12-25 07:35] LABS: BASOPHILS 0.1 % (0-2); EOSINOPHILS 0.7 % (0-7); HEMATOCRIT 32.7 % (42.0-54.0); HEMOGLOBIN 10.3 g/dL (13.5-17.5); IMMATURE GRANULOCYTES 0.3 % (0-5); LYMPHOCYTE ABS# 1.67 10x3/uL (1.32-3.57); LYMPHOCYTES 17.6 % (15-50); MCH 29.5 pg (26.0-34.0); MCHC 31.5 g/dL (31.0-37.0); MCV 93.7 fL (80.0-100.0); MEAN PLATELET VOLUME 11.7 fL (7.4-10.4); MONOCYTES 11.1 % (2-11); NEUTROPHIL ABS# 6.66 10x3/uL (1.78-5.38); NEUTROPHILS 70.2 % (40-80); PLATELET COUNT 191 10x3/uL (130-400); RBC 3.49 10x6/uL (4.20-6.10); RDW 14.4 % (11.5-14.5); WBC 9.5 10x3/uL (4.8-10.8)
[2020-12-25 08:01] LABS: ALBUMIN 2.9 g/dL (3.4-5.0); BILIRUBIN - TOTAL 0.83 mg/dL (0.2-1.3); CALCIUM 7.4 mg/dL (8.5-10.1); CARBON DIOXIDE 28.5 mmol/L (21.0-32.0); CREATININE - SERUM 10.7 mg/dL (0.6-1.3); POTASSIUM - SERUM 5.5 mmol/L (3.5-5.1); PROTEIN - SERUM 7.4 g/dL (6.4-8.2)
[2020-12-25 08:22] VITALS: BP 104/71
[2020-12-25 13:12] LABS: IMMUNOGLOBULIN E 31 IU/mL (6-495)
[2020-12-25 16:49] VITALS: BP 110/58
[2020-12-25 21:57] VITALS: BP 135/69
[2020-12-26 06:04] VITALS: BP 113/71
[2020-12-26 08:00] VITALS: BP 122/71
[2020-12-26 08:28] LABS: BASOPHILS 0.1 % (0-2); EOSINOPHILS 0.8 % (0-7); HEMATOCRIT 34.6 % (42.0-54.0); HEMOGLOBIN 11.2 g/dL (13.5-17.5); IMMATURE GRANULOCYTES 0.4 % (0-5); LYMPHOCYTE ABS# 1.12 10x3/uL (1.32-3.57); LYMPHOCYTES 15.1 % (15-50); MCH 30.9 pg (26.0-34.0); MCHC 32.4 g/dL (31.0-37.0); MCV 95.6 fL (80.0-100.0); MEAN PLATELET VOLUME 11.2 fL (7.4-10.4); MONOCYTES 14.4 % (2-11); NEUTROPHIL ABS# 5.15 10x3/uL (1.78-5.38); NEUTROPHILS 69.2 % (40-80); PLATELET COUNT 192 10x3/uL (130-400); RBC 3.62 10x6/uL (4.20-6.10); RDW 14.4 % (11.5-14.5); WBC 7.4 10x3/uL (4.8-10.8)
[2020-12-26 08:29] LABS: ANION GAP 17.5 mmol/L (8-16); BILIRUBIN - TOTAL 0.77 mg/dL (0.2-1.3); CALCIUM 7.9 mg/dL (8.5-10.1); CARBON DIOXIDE 28.5 mmol/L (21.0-32.0); CREATININE - SERUM 9.3 mg/dL (0.6-1.3); PROTEIN - SERUM 8.3 g/dL (6.4-8.2)
[2020-12-26] MEDS ORDERED: CARDURA1 MG PO (11:44)
[2020-12-26] MEDS ORDERED: Levaquin PO (11:45)
[2020-12-26] MEDS ORDERED: MUCINEX DM ER1 EAC1 PO (11:46)
[2020-12-26] MEDS ORDERED: PULMICORT0.5 MG/21 UPD (11:46)
[2020-12-26] MEDS ORDERED: FLORAJEN DIGES1 EACH PO (11:46)
[2020-12-26] MEDS ORDERED: SINGULAIR10 MG PO (11:46)
[2020-12-26] MEDS ORDERED: PROTONIX40 MG PO (11:46)
[2020-12-26] MEDS ORDERED: TESSALON PERLE100 MG PO (11:46)
--- NOTE | 2020-12-26 13:26 | NUR ---
REPORT CALLED TO HODA JIMÉNEZ LPN AT [facility] IN [place]. PATIENT WITHOUT CLEAN CLOTHES TO WEAR SO CHANGED INTO CLEAN GOWN AND BRIEF.
--- NOTE | 2020-12-26 15:54 | NUR ---
TO [facility]IA W/V WITH OXYGEN AND PAPERWORK.
--- NOTE | 2020-12-29 14:04 | MORECARE ---
CASE MANAGEMENT DISCHARGE SUMMARY PATIENT: ODETTE OH UNIT: [id number] ADM DATE: 12/20/20 AGE: 60 : 64 SEX: M ROOM/BED: D.2130 AUTHOR: MARU,DOC PHYSICIAN: REFERRING PHYSICIAN: HOMERO VARGAS DO DATE OF SERVICE: 12/29/20 Case Management Discharge Planning Summary COMMENTS ENTERED DATE: 12/25/20 16:24 CT COMMENT TYPE: Discharge Planning REVIEWER: Georgie Mathis CM MET WITH PATIENT TO DISCUSS DISCHARGE. PATIENT STATES THAT HE PREFERS TO RETURN TO [facility] IN [place] BECAUSE IT IS CLOSE TO HIS CHILDREN. HE ALSO STATES HE WOULD PREFER TO [place] [facility] ON M,W,F, BUT WAS AGREEABLE TO RETURN TO [facility] IF THEY CAN PROVIDE TRANSPORTATION. PT DOES NOT HAVE AN ALTERNATE PLAN, SUGGEST THAT [employer] WOULD PAY FOR A HOTEL IN [place] FOR HIM TO LIVE IN. PT WAS INFORMED THAT [employer]ICA[employer] WILL NOT PAY FOR HOTELS. THREE ATTEMPTS MADE TO CALL [facility] [phone] WITH NO ANSWER. DCP REVIEW SUMMARY ANTICIPATED D/C DATE: EXPECTED LOS : CASE STATUS: DCP Initiated INITIAL REVIEW: 12/20/2020 INITIAL REVIEWER: Karissa Ramon FINAL DISCHARGE DISPOSITION: : FINAL REVIEWER: FINAL REVIEW DATE: DCP Focus Questions & Answers QUESTION: ANSWER : PATIENT: ODETTE OH ENCOUNTER: [id number] MEDICAL RECORD#: [id number] ADMISSION DATE: 12/20/2020 DISCHARGE DATE: 12/26/2020 ATTENDING MD: HOMERO PINA : AGE: 60 MARITAL STATUS: S DC PLAN ID: [id number] FACILITY: [facility] PRINTED ON: 12/29/20 14:04 CT All edits/amendments must be made on the electronic document DICTATION DATE: 12/29/201403 AUTOMOTIVE MACHINIST: LUH 12/29/201403 RPT#: [id number] DC DATE:12/26/20 STATUS: DIS IN [place] [address] [place] [address] END OF REPORT
== END 2020-12-26 15:56 | DRG 640 ==
LOC: D.ER 14:23 → D.M2 15:05 → D.ICU 16:08 → D.M2 12-21 14:17
PROVIDERS: Emergency Medicine; Family Medicine; Internal Medicine Pulmonary Disease; ADMIT Family Medicine; ATTEND Family Medicine
PROC: 5A1D70Z Performance of Urinary Filtration, Intermittent, Less than 6 Hours Per Day (ICD-10-PCS; principal; 2020-12-20)
DX: E87.70 Fluid overload, unspecified (principal); N18.6 End stage renal disease; J96.01 Acute respiratory failure with hypoxia; G93.41 Metabolic encephalopathy; I13.2 Hypertensive heart and chronic kidney disease with heart failure and with stage 5 chronic kidney disease, or end stage renal disease; N25.81 Secondary hyperparathyroidism of renal origin; I42.8 Other cardiomyopathies; J44.1 Chronic obstructive pulmonary disease with (acute) exacerbation; E87.5 Hyperkalemia; E11.22 Type 2 diabetes mellitus with diabetic chronic kidney disease; Z99.2 Dependence on renal dialysis; Z91.15 Patient's noncompliance with renal dialysis; D63.1 Anemia in chronic kidney disease; E78.5 Hyperlipidemia, unspecified; I25.10 Atherosclerotic heart disease of native coronary artery without angina pectoris; K21.9 Gastro-esophageal reflux disease without esophagitis; I16.0 Hypertensive urgency; I08.3 Combined rheumatic disorders of mitral, aortic and tricuspid valves; F17.200 Nicotine dependence, unspecified, uncomplicated

== ENCOUNTER 2021-01-24 20:51 | Inpatient (IN) | payer MEDICAID ==
[~2021-01-24] VITALS: Ht 177.8 cm; Wt 75.8 kg
[~2021-01-24 20:51] MED LIST changes: +FLORAJEN DIGES1 EACH PO; +Levaquin PO; +MUCINEX DM ER1 EAC1 PO; +PULMICORT0.5 MG/21 UPD; +SINGULAIR10 MG PO; +TESSALON PERLE100 MG PO
[2021-01-24 23:21] LABS: MCH 30.2 pg (26.0-34.0); MCHC 32.9 g/dL (31.0-37.0); WBC 7.4 10x3/uL (4.8-10.8)
[2021-01-24 23:26] LABS: BASOPHILS 0.5 % (0-2); EOSINOPHILS 0.3 % (0-7); HEMATOCRIT 30.7 % (42.0-54.0); HEMOGLOBIN 10.1 g/dL (13.5-17.5); LYMPHOCYTES 17.6 % (15-50); MCV 91.8 fL (80.0-100.0); MEAN PLATELET VOLUME 8.1 fL (7.4-10.4); MONOCYTES 9.8 % (2-11); NEUTROPHILS 71.8 % (40-80); RBC 3.34 10x6/uL (4.20-6.10); RDW 15.4 % (11.5-14.5)
[2021-01-24 23:27] LABS: PLATELET COUNT 95 10x3/uL (130-400)
[2021-01-24 23:41] LABS: PLATELET ESTIMATE DECREASED
[2021-01-24 23:50] LABS: ALBUMIN 4.4 g/dL (3.4-5.0); ANION GAP 32.8 mmol/L (8-16); BILIRUBIN - TOTAL 1.57 mg/dL (0.2-1.3); CALCIUM 8.3 mg/dL (8.5-10.1); CARBON DIOXIDE 12.4 mmol/L (21.0-32.0); CREATININE - SERUM 19.6 mg/dL (0.6-1.3); MAGNESIUM - SERUM 2.8 mg/dL (1.8-2.4); PROTEIN - SERUM 8.5 g/dL (6.4-8.2); TROPONIN-I 0.054 ng/mL (0.000-0.060)
[2021-01-24 23:53] LABS: POTASSIUM - SERUM 9.2 mmol/L (3.5-5.1)
[2021-01-25] VITALS (12 sets, daily range): BP systolic 129–189; BP diastolic 72–100
--- NOTE | 2021-01-25 00:15 | NUR ---
BRYAN TORRES APN ATTEMPTED BILATERAL EJ WITHOUT SUCCESS
--- NOTE | 2021-01-25 00:17 | NUR ---
MULTIPLE NURSES ATTEMPTED IV ACCESS IN MULTIPLE SITES WITHOUT ANY SUCCESS.
--- NOTE | 2021-01-25 01:28 | NUR ---
called dr villanueva for orders on how to proceed with venous access for patient for medication administration. dr villanueva asked for surgery consult to be put in for a central line placement. dr irving was surgery consult instrumentation specialist and called ed nurse and dr irving declined to place central line at this time and suggested that patient recieve dialysis. dr villanueva notified of situation.
--- NOTE | 2021-01-25 01:35 | NUR ---
DR RED CALLED AND NOTIFIED DR ALEXIS NOBLE TO DO CENTRAL LINE TONIGHT. SHE GAVE ORDER FOR IO ACCESS.
--- NOTE | 2021-01-25 02:00 | NUR ---
45MM/15GA IO PLACED TO RIGHT PROXIMAL HUMERUS. AREA CLEANED WITH CHOLRAPREP PROIR TO ACCESS. IO SECURED WITH STABILIZER DEVICE. 40MG/2ML OF 2% LIDOCAINE INFUSED OVER 2 MINUTES. IO FLUSHED WITH 5ML NS, THEN ADDITIONAL 20MG/1ML OF LIDOCAINE 2% INFUSED. PT TOLERATED PROCEDURE POORLY AND C/O PAIN T/O.
--- NOTE | 2021-01-25 02:22 | NUR ---
PT REFUSED IV MEDS AT THIS TIME PT INFORMED OF RISKS. PT STILL REFUSING MIMI RN AND NICHOLAS RN AT BEDSIDE. PT STILL REFUSING AFTER BENEFITS VS RISKS EXPLAINED AGAIN OF NOT TAKING MEDS PRESCRIBED. PT STILL REFUSING. PAGED.
--- NOTE | 2021-01-25 02:41 | NUR ---
DR ERD INFORMED THAT PT HAS REFUSED MEDS. NO FURTHER ORDERS GIVEN.
--- NOTE | 2021-01-25 03:05 | NUR ---
glazing department supervisor went into room to expain complications of refusing medication and treatment. Pt cursed at nurse and stated he was just fine. Assisted pt onto bedpan with assistance of another nurse. Provided call light in reach. Denies other needs at this time.
--- NOTE | 2021-01-25 03:51 | NUR ---
PATENT CHEMIST AT BEDSIDE
[2021-01-25 06:58] LABS: BASOPHILS 0 % (0-2); EOSINOPHILS 0 % (0-7); HEMATOCRIT 31.4 % (42.0-54.0); HEMOGLOBIN 10.3 g/dL (13.5-17.5); IMMATURE GRANULOCYTES 0.2 % (0-5); LYMPHOCYTE ABS# 0.66 10x3/uL (1.32-3.57); LYMPHOCYTES 11.9 % (15-50); MCH 29.3 pg (26.0-34.0); MCHC 32.8 g/dL (31.0-37.0); MEAN PLATELET VOLUME 9.8 fL (7.4-10.4); MONOCYTES 6.5 % (2-11); NEUTROPHILS 81.4 % (40-80); PLATELET COUNT 107 10x3/uL (130-400); RBC 3.52 10x6/uL (4.20-6.10); RDW 14.8 % (11.5-14.5)
[2021-01-25 06:59] LABS: MCV 89.2 fL (80.0-100.0); WBC 5.5 10x3/uL (4.8-10.8)
--- NOTE | 2021-01-25 07:05 | NUR ---
RECEIVED REPORT FROM MIMI Mandujano RN
--- NOTE | 2021-01-25 07:24 | NUR ---
PT RECEIVING DIALYSIS, RESTING WITH EYES CLOSED. ON CPAP.
[2021-01-25] MEDS ORDERED: ZOFRAN4 MG PO (07:35)
[2021-01-25] MEDS ORDERED: CLONIDINE HCL0.1 MG PO (07:37)
[2021-01-25] MEDS ORDERED: ISOSORBIDE MONO60 M1 PO (07:39)
[2021-01-25] MEDS ORDERED: RENVELA800 MG PO (07:43)
[2021-01-25 07:58] LABS: BILIRUBIN - TOTAL 1.02 mg/dL (0.2-1.3); CALCIUM 9.1 mg/dL (8.5-10.1); PROTEIN - SERUM 9.9 g/dL (6.4-8.2)
[2021-01-25 07:59] LABS: ANION GAP 16.4 mmol/L (8-16); CARBON DIOXIDE 26.3 mmol/L (21.0-32.0); CREATININE - SERUM 8.9 mg/dL (0.6-1.3); POTASSIUM - SERUM 3.7 mmol/L (3.5-5.1)
--- NOTE | 2021-01-25 13:15 | NUR ---
PROVIDED PT WITH URINAL, MOVED UP INTO BED, FED MEAL. PT HAS NO COMPLAINTS AT THIS TIME. SITTING UPRIGHT WATCHING TELEVISION.
--- NOTE | 2021-01-25 17:29 | NUR ---
FED PT MEAL. DESAT TO 91% ROOM AIR WHILE EATING.
[2021-01-26 01:21] VITALS: BP 147/77
[2021-01-26 05:28] VITALS: BP 144/67
--- NOTE | 2021-01-26 07:20 | NUR ---
RECIEVE REPORT. RESTING IN BED WITH EYES CLOSED. SINUS RHYTHM 81 ON TELEMTRY. DENIES ANY NEEDS. CONTINUE PLAN OF CARE AND SAFETY PRECAUTIONS.
[2021-01-26 08:58] LABS: ANION GAP 19.6 mmol/L (8-16); CALCIUM 7.6 mg/dL (8.5-10.1); MAGNESIUM - SERUM 2.6 mg/dL (1.8-2.4); PHOSPHOROUS 8.6 mg/dL (2.5-4.9)
[2021-01-26 09:00] VITALS: BP 102/58
[2021-01-26 09:00] LABS: CREATININE - SERUM 13.9 mg/dL (0.6-1.3); POTASSIUM - SERUM 4.6 mmol/L (3.5-5.1)
--- NOTE | 2021-01-26 10:43 | NUR ---
TAKEN TO DIALYSIS VIA BED.
[2021-01-26 10:48] VITALS: BP 153/78; BMI 24.0
[2021-01-26 12:00] VITALS: BP 116/65
[2021-01-26 13:52] VITALS: Ht 177.8 cm; Wt 75.8 kg
[2021-01-26 21:22] VITALS: BP 133/70
[2021-01-27 00:04] VITALS: BP 130/73
--- NOTE | 2021-01-27 03:55 | NUR ---
I have reviewed this patient and I concur with the Shift Assessment completed by the Licensed Practical Nurse today this shift.
[2021-01-27 05:10] VITALS: BP 132/75
[2021-01-27 06:19] LABS: VANCOMYCIN - RANDOM 11.3 ug/mL (10.0-20.0)
[2021-01-27 06:24] LABS: CREATININE - SERUM 9.7 mg/dL (0.6-1.3)
--- NOTE | 2021-01-27 07:20 | NUR ---
RECIEVE REPORT. RESTING IN BED WITH EYES CLOSED. NO SIGNS OF DISTRESS. CONTINUE PLAN OF CARE AND SAFETY PRECAUTIONS.
[2021-01-27 08:00] VITALS: BP 139/79
[2021-01-27 16:00] VITALS: BP 119/70
[2021-01-27 21:21] VITALS: BP 111/48
[2021-01-28 00:27] VITALS: BP 131/71
--- NOTE | 2021-01-28 04:59 | NUR ---
I have reviewed this patient and I concur with the Shift Assessment completed by the Licensed Practical Nurse today this shift.
[2021-01-28 06:16] VITALS: BP 124/71
[2021-01-28 06:28] LABS: BASOPHILS 0.2 % (0-2); EOSINOPHILS 0.5 % (0-7); HEMATOCRIT 29.3 % (42.0-54.0); HEMOGLOBIN 9.7 g/dL (13.5-17.5); LYMPHOCYTES 18.2 % (15-50); MCH 31.3 pg (26.0-34.0); MCHC 33.3 g/dL (31.0-37.0); MEAN PLATELET VOLUME 8.6 fL (7.4-10.4); MONOCYTES 13.9 % (2-11); NEUTROPHILS 67.2 % (40-80); RBC 3.11 10x6/uL (4.20-6.10); RDW 14.8 % (11.5-14.5); WBC 5.5 10x3/uL (4.8-10.8)
[2021-01-28 06:37] LABS: PLATELET COUNT 145 10x3/uL (130-400)
[2021-01-28 06:42] LABS: ANION GAP 14.6 mmol/L (8-16); CALCIUM 8.6 mg/dL (8.5-10.1); CARBON DIOXIDE 29.4 mmol/L (21.0-32.0); VANCOMYCIN - RANDOM 17.5 ug/mL (10.0-20.0)
[2021-01-28 06:44] LABS: CREATININE - SERUM 7.1 mg/dL (0.6-1.3); PHOSPHOROUS 4.7 mg/dL (2.5-4.9)
--- NOTE | 2021-01-28 07:10 | NUR ---
PT LYING IN BED WITH EYES CLOSED AND HOB ELEVATED 45 DEGREES. RESP EVEN AND UNLABORED. RAISES TO VERBAL STIMULI. O2 [address]PM [address] HF IN PL[address] AAO X4. DENIES NEEDS AT THIS TIME. CLIR. BED IN LOWEST POSITION. SIDE RAILS X2
[2021-01-28 09:00] VITALS: BP 122/66
[2021-01-28 12:00] VITALS: BP 124/69
--- NOTE | 2021-01-28 12:22 | NUR ---
I have reviewed this patient and I concur with the Shift Assessment completed by the Licensed Practical Nurse today this shift.
--- NOTE | 2021-01-28 14:06 | NUR ---
Nutrition Follow-up: Overall good PO intake. Ate 100% of breakfast. HD today. Diet: Renal ADA Wt: 167# (01/26) Labs noted: K+ 4.0, Glu 122, PO4 4.7 Meds noted: Zofran, Calcitriol, Renagel, Protonix -RD will follow up within 5-7 days.
--- NOTE | 2021-01-28 14:48 | MORECARE ---
CASE MANAGEMENT DISCHARGE SUMMARY PATIENT: ODETTE OH UNIT: [id number] ADM DATE: 01/25/21 AGE: 60 : 64 SEX: M ROOM/BED: D.2138 AUTHOR: MARU,DOC PHYSICIAN: REFERRING PHYSICIAN: TRACY RED DO DATE OF SERVICE: 01/28/21 Case Management Discharge Planning Summary DCP REVIEW SUMMARY ANTICIPATED D/C DATE: 01/28/2021 EXPECTED LOS : 3 CASE STATUS: DCP Initiated INITIAL REVIEW: 01/24/2021 INITIAL REVIEWER: Georgie Mathis FINAL DISCHARGE DISPOSITION: : FINAL REVIEWER: FINAL REVIEW DATE: DCP Focus Questions & Answers QUESTION: ANSWER : PATIENT: ODETTE OH ENCOUNTER: [id number] MEDICAL RECORD#: [id number] ADMISSION DATE: 01/25/2021 DISCHARGE DATE: ATTENDING MD: : AGE: 60 MARITAL STATUS: S DC PLAN ID: [id number] FACILITY: [facility] PRINTED ON: 01/28/21 14:48 CT All edits/amendments must be made on the electronic document DICTATION DATE: 01/28/211447 DOOR TO DOOR FUNDRAISING COLLECTOR: DM 01/28/21 1448 RPT#: [id number] DC DATE: STATUS: ADM IN [facility] [address] [place] [address] END OF REPORT
--- NOTE | 2021-01-28 15:02 | MORECARE ---
CASE MANAGEMENT DISCHARGE SUMMARY PATIENT: ODETTE OH UNIT: [id number] ADM DATE: 01/25/21 AGE: 60 : 64 SEX: M ROOM/BED: D.2138 AUTHOR: ETHAN MAHONEY PHYSICIAN: REFERRING PHYSICIAN: TRACY RED DO DATE OF SERVICE: 01/28/21 Case Management Discharge Planning Summary DCP REVIEW SUMMARY ANTICIPATED D/C DATE: 01/28/2021 EXPECTED LOS : 3 CASE STATUS: DCP Initiated INITIAL REVIEW: 01/24/2021 INITIAL REVIEWER: Georgie Mathis FINAL DISCHARGE DISPOSITION: 66 : Discharge/Trans to a Nursing Facility Certified under Medicaid but not Medicare FINAL REVIEWER: FINAL REVIEW DATE: DCP Focus Questions & Answers QUESTION: ANSWER : PATIENT: ODETTE OH ENCOUNTER: [id number] MEDICAL RECORD#: [id number] ADMISSION DATE: 01/25/2021 DISCHARGE DATE: ATTENDING MD: : AGE: 60 MARITAL STATUS: S DC PLAN ID: [id number] FACILITY: [facility] PRINTED ON: 01/28/21 15:02 CT All edits/amendments must be made on the electronic document DICTATION DATE: 01/28/21 150 MANAGER SCHOOL: LUH 01/28/21 1502 RPT#: [id number] DC DATE: STATUS: ADM IN [facility] [address] [place] [address] END OF REPORT
--- NOTE | 2021-01-28 15:16 | MORECARE ---
CASE MANAGEMENT DISCHARGE SUMMARY PATIENT: ODETTE OH UNIT: [id number] ADM DATE: 01/25/21 AGE: 60 : 64 SEX: M ROOM/BED: D.2138 AUTHOR: ETHAN MAHONEY PHYSICIAN: REFERRING PHYSICIAN: TRACY RED DO DATE OF SERVICE: 01/28/21 Case Management Discharge Planning Summary COMMENTS ENTERED DATE: 01/28/21 15:02 CT COMMENT TYPE: Discharge Planning REVIEWER: Georgie Mathis CM MET WITH PATIENT TO DISCUSS DISCHARGE. PT IS FROM [place] AND PLANS TO RETURN TO FACILITY. UPDATED CLINICAL DOCMENTATION FAXED TO FACILITY AND REPORT CALLED PER NURSE. PT WILL BE TRANSPORTED BACK PER FACILITY TRANSPORTATION. DCP REVIEW SUMMARY ANTICIPATED D/C DATE: 01/28/2021 EXPECTED LOS : 3 CASE STATUS: DCP Initiated INITIAL REVIEW: 01/24/2021 INITIAL REVIEWER: Georgie Mathis FINAL DISCHARGE DISPOSITION: 66 : Discharge/Trans to a Nursing Facility Certified under Medicaid but not Medicare FINAL REVIEWER: FINAL REVIEW DATE: [facility] Focus Questions & Answers QUESTION: ANSWER : PATIENT: ODETTE OH ENCOUNTER: [id number] MEDICAL RECORD#: [id number] ADMISSION DATE: 01/25/2021 DISCHARGE DATE: ATTENDING MD: : AGE: 60 MARITAL STATUS: S DC PLAN ID: [id number] FACILITY: [facility] PRINTED ON: 01/28/21 15:16 CT All edits/amendments must be made on the electronic document DICTATION DATE: 01/28/211515 GLASS BLOCK BENDER: LUH 01/28/211515 RPT#: [id number] DC DATE: STATUS: ADM IN [facility] [address] [place] [address] END OF REPORT
--- NOTE | 2021-01-28 15:23 | NUR ---
CALLED REPORT TO NURSE AT [facility]. SHE STATED THEY WILL SEND TRANSPORT WHEN AVAILABLE
--- NOTE | 2021-01-28 16:16 | NUR ---
PT DISCHARGED BACK TO [facility] VIA TRANSPORT. DISCHARGE PAPERWORK SENT WITH PT
--- NOTE | 2021-01-28 16:20 | MORECARE ---
CASE MANAGEMENT DISCHARGE SUMMARY PATIENT: ODETTE OH UNIT: [id number] ADM DATE: 01/25/21 AGE: 60 : 64 SEX: M ROOM/BED: D.2138 AUTHOR: ETHAN MAHONEY PHYSICIAN: REFERRING PHYSICIAN: TRACY RED DO DATE OF SERVICE: 01/28/21 Case Management Discharge Planning Summary COMMENTS ENTERED DATE: 01/28/21 15:02 CT COMMENT TYPE: Discharge Planning REVIEWER: Georgie Mathis CM MET WITH PATIENT TO DISCUSS DISCHARGE. PT IS FROM [place] AND PLANS TO RETURN TO FACILITY. UPDATED CLINICAL DOCMENTATION FAXED TO FACILITY AND REPORT CALLED PER NURSE. PT WILL BE TRANSPORTED BACK PER FACILITY TRANSPORTATION. DCP REVIEW SUMMARY ANTICIPATED D/C DATE: 01/28/2021 EXPECTED LOS : 3 CASE STATUS: DCP Initiated INITIAL REVIEW: 01/24/2021 INITIAL REVIEWER: Georgie Mathis FINAL DISCHARGE DISPOSITION: 66 : Discharge/Trans to a Nursing Facility Certified under Medicaid but not Medicare FINAL REVIEWER: FINAL REVIEW DATE: [facility] Focus Questions & Answers QUESTION: ANSWER : PATIENT: ODETTE OH ENCOUNTER: [id number] MEDICAL RECORD#: [id number] ADMISSION DATE: 01/25/2021 DISCHARGE DATE: 01/28/2021 ATTENDING MD: : 1960- AGE: 60 MARITAL STATUS: S DC PLAN ID: [id number] FACILITY: [facility] PRINTED ON: 01/28/21 16:20 CT All edits/amendments must be made on the electronic document DICTATION DATE: 01/28/211619 BROADBAND TECHNICIAN: ULH 01/28/211619 RPT#: [id number] DC DATE:01/28/21 STATUS: DIS IN [facility] [address] [place] [address] END OF REPORT
--- NOTE | 2021-01-29 14:29 | MORECARE ---
CASE MANAGEMENT DISCHARGE SUMMARY PATIENT: ODETTE OH UNIT: [id number] ADM DATE: 01/25/21 AGE: 60 : 64 SEX: M ROOM/BED: D.2138 AUTHOR: ETHAN MAHONEY PHYSICIAN: REFERRING PHYSICIAN: TRACY RED DO DATE OF SERVICE: 01/29/21 Case Management Discharge Planning Summary COMMENTS ENTERED DATE: 01/28/21 15:02 CT COMMENT TYPE: Discharge Planning REVIEWER: Georgie Mathis CM MET WITH PATIENT TO DISCUSS DISCHARGE. PT IS FROM [place] AND PLANS TO RETURN TO FACILITY. UPDATED CLINICAL DOCMENTATION FAXED TO FACILITY AND REPORT CALLED PER NURSE. PT WILL BE TRANSPORTED BACK PER FACILITY TRANSPORTATION. DCP REVIEW SUMMARY ANTICIPATED D/C DATE: 01/28/2021 EXPECTED LOS : 3 CASE STATUS: DCP Initiated INITIAL REVIEW: 01/24/2021 INITIAL REVIEWER: Georgie Mathis FINAL DISCHARGE DISPOSITION: 66 : Discharge/Trans to a Nursing Facility Certified under Medicaid but not Medicare FINAL REVIEWER: FINAL REVIEW DATE: [facility] Questions & Answers QUESTION: ANSWER : PATIENT: ODETTE OH ENCOUNTER: [id number] MEDICAL RECORD#: [id number] ADMISSION DATE: 01/25/2021 DISCHARGE DATE: 01/28/2021 ATTENDING MD: : 1960- AGE: 60 MARITAL STATUS: S DC PLAN ID: [id number] FACILITY: [facility] PRINTED ON: 01/29/21 14:29 CT All edits/amendments must be made on the electronic document DICTATION DATE: 01/29/211428 OPERATIONS SECTION MANAGER: [facility] 01/29/21 142 RPT#: [id number] DC DATE:01/28/21 STATUS: DIS IN [facility] [address] [place] [address] END OF REPORT
--- NOTE | 2021-01-29 20:50 | MORECARE ---
CASE MANAGEMENT DISCHARGE SUMMARY PATIENT: ODETTE OH UNIT: [id number] ADM DATE: 01/25/21 AGE: 60 : 64 SEX: M ROOM/BED: D.2138 AUTHOR: ETHAN MAHONEY PHYSICIAN: REFERRING PHYSICIAN: TRACY RED DO DATE OF SERVICE: 01/29/21 Case Management Discharge Planning Summary COMMENTS ENTERED DATE: 01/28/21 15:02 CT COMMENT TYPE: Discharge Planning REVIEWER: Georgie Mathis CM MET WITH PATIENT TO DISCUSS DISCHARGE. PT IS FROM [place] AND PLANS TO RETURN TO FACILITY. UPDATED CLINICAL DOCMENTATION FAXED TO FACILITY AND REPORT CALLED PER NURSE. PT WILL BE TRANSPORTED BACK PER FACILITY TRANSPORTATION. DCP REVIEW SUMMARY ANTICIPATED D/C DATE: 01/28/2021 EXPECTED LOS : 3 CASE STATUS: DCP Initiated INITIAL REVIEW: 01/24/2021 INITIAL REVIEWER: Georgie Mathis FINAL DISCHARGE DISPOSITION: 66 : Discharge/Trans to a Nursing Facility Certified under Medicaid but not Medicare FINAL REVIEWER: FINAL REVIEW DATE: [facility] Questions & Answers QUESTION: ANSWER : PATIENT: ODETTE OH ENCOUNTER: [id number] MEDICAL RECORD#: [id number] ADMISSION DATE: 01/25/2021 DISCHARGE DATE: 01/28/2021 ATTENDING MD: : 1960- AGE: 60 MARITAL STATUS: S DC PLAN ID: [id number] FACILITY: [facility] PRINTED ON: 01/29/21 20:50 CT All edits/amendments must be made on the electronic document DICTATION DATE: 01/29/212049 VEHICLE WASHER: [facility] 01/29/212049 RPT#: [id number] DC DATE:01/28/21 STATUS: DIS IN [facility] [address] [place] [address] END OF REPORT
== END 2021-01-28 16:17 | DRG 640 ==
LOC: D.ER 20:51 → D.EDHOLD 23:06 → OBSVTIME 23:06 → D.M2 23:39 → D.EDHOLD 01-25 02:01 → D.M2 01-25 16:31
PROVIDERS: Family Medicine; ADMIT Internal Medicine; ATTEND Internal Medicine
DX: E87.70 Fluid overload, unspecified (principal); N18.6 End stage renal disease; I12.0 Hypertensive chronic kidney disease with stage 5 chronic kidney disease or end stage renal disease; G93.49 Other encephalopathy; E87.5 Hyperkalemia; E11.22 Type 2 diabetes mellitus with diabetic chronic kidney disease; Z99.2 Dependence on renal dialysis; Z91.15 Patient's noncompliance with renal dialysis; K21.9 Gastro-esophageal reflux disease without esophagitis; I16.0 Hypertensive urgency